=== PATIENT | female | born 1940 | race Caucasian/White ===

== ENCOUNTER 2024-07-04 18:42 | Emergency (ER) | payer MEDICARE, BC, SELFPAY ==
[2024-07-04 18:43] VITALS: BMI 15.7
[2024-07-04 19:07] VITALS: BP 134/57; PULSE 60; RESP 19; TEMP 36.8; O2SAT 98
--- NOTE | 2024-07-04 19:31 | XR_ITS ---
Examination: CT brain head without contrast. 2-D sagittal coronal reconstructions Date and time of exam:July 04, 2024 2058 hrs. Indications: Patient fell today with injury to the head, head pain CTDI: vol (mGy):40.9 DLP: (mGycm):765 Technique: Multiple CT axial sections of the brain have been obtained, 5 mm slice thickness. Contrast has not been administered. 2-D sagittal, coronal reconstructions have been obtained Low dose protocols were performed. One or more of the following dose reduction techniques were used; automated exposure control, adjustment of the mA and/or KV according to patient size, use of iterative reconstruction technique. Findings: No significant ventricular enlargement. 1 mm opacities at the anterior margins both optic globes, axial image 30 Intra-axial or extra-axial hemorrhage density is not seen. No mass effect or midline shift Basal cisterns are not remarkable. Fourth ventricle is midline. Cranial vault intact. Impression: Negative for acute hemorrhage, mass effect or midline shift Tiny opaque bodies at the anterior margins both optic globes, axial image 30, clinical correlation advised millimeters
--- NOTE | 2024-07-04 19:31 | XR_ITS ---
Examination: CT cervical spine without contrast 2-D sagittal reconstructions 2-D coronal reconstructions 3-D reconstructions. Exam date and time:July 04, 2024 2058 hrs. Indications: Patient fell today with injury to the neck, neck pain CTDI:vol (mGy) 11.1 DLP: (mGycm) 202 Technique: Multiple 2 mm axial sections of the cervical spine have been obtained. The coronal and sagittal reconstructions have been obtained. 3-D reconstructions have been obtained. Low dose protocols were performed. One or more of the following dose reduction techniques were used; automated exposure control, adjustment of the mA and/or KV according to patient size, use of iterative reconstruction technique. Findings: Axial sections demonstrate intact base of the skull. C1 exhibit satisfactory relationship to the odontoid. No acute cervical vertebral body fracture seen. Alignment posterior spinous processes satisfactory. Impression: No acute cervical fracture.
--- NOTE | 2024-07-04 19:31 | XR_ITS ---
Examination: CT maxillofacial, without intravenous contrast. 2-D sagittal reconstructions. 3-D reconstructions. Date and time of exam:July 04, 2024 2058 hrs. Indications: Patient fell today with laceration to the face, facial pain CTDI: vol (mGy):18.1 DLP: (mGycm):274 Technique: Multiple axial images of maxillofacial region, 3.0 mm slice thickness. 2-D sagittal and coronal reconstructions. 3-D reconstructions. Low dose protocols were performed. One or more of the following dose reduction techniques were used; automated exposure control, adjustment of the mA and/or KV according to patient size, use of iterative reconstruction technique. Findings: Frontal bone frontal sinuses intact Orbital rims intact No depression zygomatic arches No nasal bone fracture Maxilla mandible intact Impression: No acute facial fracture. Tiny opacities at the bilateral optic globe margins, axial image 67, clinical correlation advised
--- NOTE | 2024-07-04 19:32 | PD.EDRME ---
Rapid Medical Screening Exam RME Arrival date/time: 07/04/24 18:42 84-year-old female with at bedside presents emergency department complaining of laceration to right side of face status post fall at home that occurred while coming downstairs patient reports missed step and fell forward unknown if she had any loss of consciousness. Chief Complaint: Head Injury Time Seen by Provider: 07/04/24 19:30 Vital signs: Vital Signs Temperature 98.3 F 07/04/24 19:07 Pulse Rate 60 07/04/24 19:07 Respiratory Rate 19 07/04/24 19:07 Blood Pressure 134/57 H 07/04/24 19:07 Pulse Oximetry (%) 98 07/04/24 19:07 Oxygen Delivery Method Room Air 07/04/24 19:07 Vital signs reviewed by provider: Yes
--- NOTE | 2024-07-04 20:32 | PD.EDFALL ---
ED Fall Injury RME/HPI General Chief Complaint: Head Injury Stated Complaint: TRIP/FALL, LAC TO RIGHT SIDE FACE, UNK LOC Time Seen by Provider: 07/04/24 19:30 Arrival date/time: 07/04/24 18:42 RME / HPI RME / HPI Narrative: 07/04/24 18:42 84-year-old female with at bedside presents emergency department complaining of laceration to right side of face status post fall at home that occurred while coming downstairs patient reports missed step and fell forward unknown if she had any loss of consciousness. DR. FAJARDO MAIN ED EVALUATION: 84 year old female presents to the Emergency Department accompanied by spouse with complaint of right face laceration secondary to fall prior to arrival. Patient tripped and fell downstairs, she missed a step and fell forward. LOC unknown. PMHx: Valley fever (1994), colitis (12/15/14). PSHx: Abdominal hysterectomy (02/01/1977), colon cancer surgery (09/03/1986), left ovarian surgery (09/03/1986), back surgery (10/28/2008), right eye cataract surgery (12/19/2011), back surgery again (09/2013), left eye cataract surgery (01/18/2015), total hip surgery (02/03/2016). Social Hx: No tobacco, alcohol, or substance use. Related Data Home Medications ?Medication ?Instructions ?Recorded ?Confirmed brimonidine 0.2 %-timolol 0.5 % 1 drp ophthalmic (eye) BID 08/26/18 04/12/21 eye drops (Combigan) hydrocodone 10 mg-acetaminophen 1 tab PO BID 08/26/18 04/12/21 325 mg tablet midodrine 10 mg tablet 10 mg PO BID 08/26/18 04/12/21 travoprost 0.004 % eye drops 1 drp ophthalmic (eye) HS 08/26/18 04/12/21 (Travatan Z) donepezil 10 mg tablet (Aricept) 10 mg PO QDAY 04/12/21 04/12/21 pravastatin 40 mg tablet 40 mg PO BID 04/12/21 04/12/21 Allergies Allergy/AdvReac Type Severity Reaction Status Date / Time No Known Allergies Allergy Verified 07/04/24 18:45 Review of Systems Review of Systems Systems Reviewed: All systems reviewed, normal except as documented Narrative Review of Systems: GEN: No fever, no chills, no weight loss EYES: No discharge, no visual changes, no pain HEENT: No ear pain, no congestion, no sore throat PULM: No shortness of breath, no cough, no congestion CV: No chest pain, no dyspnea on exertion, no palpitations GI: No nausea, no vomiting, no diarrhea, no pain, no constipation : No frequency, no urgency and no dysuria MUSC/SKEL: No joint pain, no back pain SKIN: No rash. + right face laceration secondary to fall (see HPI) PSYCH: No hallucinations, no depression HEME/LYMPH: No easy bleeding or bruising tendencies NEURO: No weakness, no headache Past Medical History Past Medical History CARDIAC: Positive Cardiac Disorders and Hypercholesterolemia GASTROINTESTINAL: Positive Gastrointestinal Disorders, Colitis, Colorectal Cancer (09/03/88) and Gastroesophageal Reflux Disease REPRODUCTIVE: Positive Previous Pregnancies () MUSCULOSKELETAL: Positive Musculoskeletal Disorders, Arthritis and Carpal Tunnel Syndrome (bilat) ENT: Positive Cataracts (bilateral) PSYCHO/SOCIAL: Positive Depression and Anxiety OTHER HISTORY: Positive Falls, Chicken Pox, Measles, Mumps, Cancer and Colorectal Cancer (09/03/88) Surgical History SURGICAL: Positive Eye Surgery, Tonsillectomy, Abdominal Surgery, Bowel Surgery and Hysterectomy Social History SMOKING STATUS: Former smoker SUBSTANCE USE: does not use ALCOHOL: Never ED Exam Narrative Physical exam: GENERAL APPEARANCE: alert and oriented x 4, well-developed, well-nourished, no acute distress VITALS: All vitals were reviewed and the pulse ox is 98% on room air, which is normal according to my interpretation. HEENT: Right face laceration. Pupils equal, round, reactive to light; EOMI; mucous membranes pink, moist; oropharynx clear NECK: Supple LUNGS: CTABL; no wheezes, no rales, no rhonchi HEART: Regular rate, regular rhythm; normal S1, S2; no murmurs ABDOMEN: non distended; normal BS; soft, no tenderness, no guarding, no rebound; no masses, no organomegaly, no hernia BACK: no CVA tenderness EXTREMITIES: atraumatic; no edema NEUROLOGIC: awake; alert and oriented x4; cranial nerves II-XII grossly intact; no focal sensory or motor deficits PSYCHIATRIC: appropriate mood and affect SKIN: warm, dry, normal color; no rashes Course Quality Measures none Orders Category Date Time Status Set Up Suture Tray STAT Care 07/04/24 19:31 Completed Wound Care [Wound Care] NOW Care 07/04/24 19:31 Completed Consult to General Surgery Stat Cons 07/04/24 21:[address] cervical spine wo con Stat Exams 07/04/24 19:[address] facial bones wo con Stat Exams 07/04/24 19:[address] head/brain wo con Stat Exams 07/04/24 19:31 Completed Lidocaine 1% 20 ml [Xylocaine 1% 20 ML] Med 07/04/24 19:31 Discontinued 20 ml INFL X1 ONE Tet,Diphth,Pertuss(Acell)-Tdap [Boostrix Vacc] Med 07/04/24 19:31 Discontinued 0.5 ml IMI .ONCE ONE Reevaluation(s) Reevaluation #1: Patient remains clinically stable throughout the emergency department visit. Re-assessment at the time of disposition demonstrates that the patient is in no acute distress. We reviewed all the results, analysis, and treatment plans. Patient is amenable to discharge. Strict return precautions were outlined. Patient was discharged in stable condition. Time: 23:50 Vital Signs Vital signs: Vital Signs Temperature 98.3 F 07/04/24 19:07 Pulse Rate 60 07/04/24 19:07 Respiratory Rate 19 07/04/24 19:07 Blood Pressure 134/57 H 07/04/24 19:07 Pulse Oximetry (%) 98 07/04/24 19:07 Oxygen Delivery Method Room Air 07/04/24 19:07 Procedures -ED Procedure Comment #1 Deep, complex, L-shaped laceration with irregular borders 7 cm right cheek. Deep subcutaneous interrupted sutures 3-0 Vicryl x 3. 4-0 Ethilon running suture for skin closure. #2 Linear laceration 2 cm right brow deep with irregular borders. 4-0 Ethilon running suture for skin closure. Steri-Strips placed Fall MDM Narrative MDM Narrative:: Batool Low am scribing for and in the presence of Dr. Fajardo. Patient data External records reviewed:: [facility] previous records Clinical information provided by:: patient and spouse Social determinants that could affect healthcare access:: none Patient has the following chronic illnesses:: PMHx: Valley fever (1994), colitis (12/15/14). PSHx: Abdominal hysterectomy (02/01/1977), colon cancer surgery (09/03/1986), left ovarian surgery (09/03/1986), back surgery (10/28/2008), right eye cataract surgery (12/19/2011), back surgery again (09/2013), left eye cataract surgery (01/18/2015), total hip surgery (02/03/2016). How is presenting disease/condition affected by chronic disease/condition?: uneffected by Evaluation data The following diagnostics were reviewed and interpreted by me:: radiology exam(s) Lab and/or radiology exams considered but not ordered:: none Interpretation Summary: Procedure(s): CT head/brain wo con Accession Number(s): [id number] cc: Aries Lentz MD; Marleny Mistry MD; Afia Sandhu ([employer]),Benedicto WEN~ Examination: CT brain head without contrast. 2-D sagittal coronal reconstructions Date and time of exam:July 04, 20242057 hrs. Indications: Patient fell today with injury to the head, head pain CTDI: vol (mGy):40.9 DLP: (mGycm):765 Technique: Multiple CT axial sections of the brain have been obtained, 5 mm slice thickness. Contrast has not been administered. 2-D sagittal, coronal reconstructions have been obtained Low dose protocols were performed. One or more of the following dose reduction techniques were used; automated exposure control, adjustment of the mA and/or KV according to patient size, use of iterative reconstruction technique. Findings: No significant ventricular enlargement. 1 mm opacities at the anterior margins both optic globes, axial image 30 Intra-axial or extra-axial hemorrhage density is not seen. No mass effect or midline shift Basal cisterns are not remarkable. Fourth ventricle is midline. Cranial vault intact. Impression: Negative for acute hemorrhage, mass effect or midline shift Tiny opaque bodies at the anterior margins both optic globes, axial image 30, clinical correlation advised millimeters Dictated By: Aries Lentz MD Procedure(s): CT facial bones wo con Accession Number(s): [id number] cc: Aries Lentz MD; Marleny Mistry MD; Afia Sandhu ([employer]),Benedicto WEN~ Examination: CT maxillofacial, without intravenous contrast. 2-D sagittal reconstructions. 3-D reconstructions. Date and time of exam:July 04, 20242057 hrs. Indications: Patient fell today with laceration to the face, facial pain CTDI: vol (mGy):18.1 DLP: (mGycm):274 Technique: Multiple axial images of maxillofacial region, 3.0 mm slice thickness. 2-D sagittal and coronal reconstructions. 3-D reconstructions. Low dose protocols were performed. One or more of the following dose reduction techniques were used; automated exposure control, adjustment of the mA and/or KV according to patient size, use of iterative reconstruction technique. Findings: Frontal bone frontal sinuses intact Orbital rims intact No depression zygomatic arches No nasal bone fracture Maxilla mandible intact Impression: No acute facial fracture. Tiny opacities at the bilateral optic globe margins, axial image 67, clinical correlation advised Dictated By: Aries Lentz MD Procedure(s): CT cervical spine wo con Accession Number(s): [id number] cc: Aries Lentz MD; Marleny Mistry MD; Afia Sandhu ([employer]ING [employer]OR)Benedicto~ Examination: CT cervical spine without contrast 2-D sagittal reconstructions 2-D coronal reconstructions 3-D reconstructions. Exam date and time:July 04, 2024 2058 hrs. Indications: Patient fell today with injury to the neck, neck pain CTDI:vol (mGy) 11.1 DLP: (mGycm) 202 Technique: Multiple 2 mm axial sections of the cervical spine have been obtained. The coronal and sagittal reconstructions have been obtained. 3-D reconstructions have been obtained. Low dose protocols were performed. One or more of the following dose reduction techniques were used; automated exposure control, adjustment of the mA and/or KV according to patient size, use of iterative reconstruction technique. Findings: Axial sections demonstrate intact base of the skull. C1 exhibit satisfactory relationship to the odontoid. No acute cervical vertebral body fracture seen. Alignment posterior spinous processes satisfactory. Impression: No acute cervical fracture. Dictated By: Aries Lentz MD Medications / Prescriptions Medications or Prescriptions considered but not ordered:: none Medication administrations:: Medication Administration History Discontinued Medications Diphtheria/Tetanus/Acell Pertussis (Diphth,Pertuss(Acell),Tet Vac 0.5 Ml Vial) 0.5 ml IMi .ONCE ONE Stop: 07/04/24 19:32 Last Admin: 07/04/24 20:51 Dose: 0.5 ml Documented By: Lidocaine HCl (Lidocaine Hcl 1% 20 Ml Vial) 20 ml INFL X1 ONE Stop: 07/04/24 19:32 Last Admin: 07/04/24 20:54 Dose: 20 ml Documented By: see above Consultations Consultation(s) initiated? (list below): No Diagnosis Fall Differential Diagnosis: concussion with loss of consciousness, concussion without loss of consciousness and other (head laceration, ) Most likely diagnosis given after review of the tests above:: Fall Complex laceration laceration of face Laceration of brow without complication Head injury Admission Indicated Admission indicated?: not indicated Admission Request Was there a request for admission?: No Disposition Plan Disposition Plan: Discharge Discharge Attestation Discharge Attestation: The patient and all family members were given an opportunity to ask questions and understood the discharge instructions. Discharge instructions specifically effects, indications for sooner follow up or return to the emergency department, and the expected course of current diagnosis. Patient condition: Stable Discharge Plan Plan Patient Disposition: HOME (Self Care) Prescriptions/Referrals Prescriptions/Med Rec: No Action travoprost [Travatan Z] 0.004 % Drops 1 drp ophthalmic (eye) HS hydrocodone-acetaminophen 10-325 mg Tablet 1 tab PO BID midodrine 10 mg Tablet 10 mg PO BID Combigan 0.2-0.5 % Drops 1 drp OPHTHALMIC (EYE) BID pravastatin 40 mg Tablet 40 mg PO BID donepezil [Aricept] 10 mg Tablet 10 mg PO QDAY Referrals: Marleny Mistry MD [Primary Care Provider] - In 1 week Problem List Clinical Impression: Fall, Complex laceration of face, Laceration of brow without complication, Head injury Patient/Caregiver Discharge Instructions Education Materials: Black Eye, ED Head Injury (Adult), ED Laceration, Face: Stitches or Tape Print Language: Pashto Stand Alone Forms: Shara Award Info., Patient Portal Info Letter
[2024-07-04] MEDS: DIPHTH,PERTUSS(ACELL),TET VAC 0.5 ML VIAL IMi (20:51)
[2024-07-04] MEDS: LIDOCAINE HCL 1% 20 ML VIAL INFL (20:54)
[2024-07-04 22:17] VITALS: BP 155/67; PULSE 69; RESP 18; TEMP 36.5; O2SAT 99
[2024-07-05 00:12] VITALS: BP 155/74; PULSE 64; RESP 16; O2SAT 100
== END 2024-07-05 00:13 | disposition home or self-care (01) ==
PROVIDERS: Emergency Provider Emergency Medicine; PCP Family Medicine
DX: S01.81XA Laceration without foreign body of other part of head, initial encounter (principal); S19.9XXA Unspecified injury of neck, initial encounter; H43.393 Other vitreous opacities, bilateral; W10.9XXA Fall (on) (from) unspecified stairs and steps, initial encounter; Z23 Encounter for immunization
CPT/HCPCS: 12054; 70450; 70486; 72125; 90471; 90715; 99284; J3490

== ENCOUNTER → 2025-01-29 | Outpatient (CLI) | payer MEDICARE, BC, SELFPAY ==
[2025-01-29 15:43] LABS: Amphetamine/Methamp Scrn,U Negative (Negative); Barbiturate Screen,Urine Negative (Negative); Benzodiazepines Screen,Urine Negative (Negative); Benzoylecgonine Screen, Ur Negative (Negative); Fentanyl Screen,Urine Negative (Negative); Opiate Screen,Urine Negative (Negative); THC Screen,Urine Negative (Negative)
== END | disposition home or self-care (01) ==
LOC: SLDO 14:38
PROVIDERS: PCP Physician Assistant; Referring Provider Physician Assistant; Visit Provider Physician Assistant
DX: Z79.891 Long term (current) use of opiate analgesic (principal)
CPT/HCPCS: 80307

== ENCOUNTER 2025-02-27 10:43 | Inpatient (IN) | payer MEDICARE, BC, SELFPAY ==
[2025-02-27 10:57] VITALS: BP 147/47; PULSE 104; RESP 19; TEMP 36.9; O2SAT 96
[2025-02-27 11:14] VITALS: PULSE 74; O2SAT 97
--- NOTE | 2025-02-27 11:42 | PD.EDADULT ---
ED General RME/HPI General Chief complaint: Weakness Stated complaint: WEAKNESS Time Seen by Provider: 02/27/25 11:42 Arrival date/time: 02/27/25 10:43 RME / HPI RME / HPI narrative: DR. TAN MAIN ED EVALUATION: 85-year-old female with past medical history of Valley fever (1994) and colitis (2014) presents to the Emergency Department BIBA accompanied by her with complaint of increased confusion, progressive weakness over the past year. Patient is agitated, per she gets like that. No recent trauma reported. All history obtained from . No other complaints at this time. Past surgical history includes abdominal hysterectomy (1976), colon cancer surgery (1986), left ovarian surgery (1986), back surgeries (2008, 2013), right eye cataract surgery (2011), left eye cataract surgery (2014), and total hip surgery (2015). Social history negative for tobacco, alcohol, or substance use. Related Data Home Medications ?Medication ?Instructions ?Recorded ?Confirmed brimonidine 0.2 %-timolol 0.5 % 1 drp ophthalmic (eye) BID 08/26/18 04/12/21 eye drops (Combigan) hydrocodone 10 mg-acetaminophen 1 tab PO BID 08/26/18 04/12/21 325 mg tablet midodrine 10 mg tablet 10 mg PO BID 08/26/18 04/12/21 travoprost 0.004 % eye drops 1 drp ophthalmic (eye) HS 08/26/18 04/12/21 (Travatan Z) donepezil 10 mg tablet (Aricept) 10 mg PO QDAY 04/12/21 04/12/21 pravastatin 40 mg tablet 40 mg PO BID 04/12/21 04/12/21 Allergies Allergy/AdvReac Type Severity Reaction Status Date / Time No Known Allergies Allergy Verified 07/04/24 18:45 Review of Systems Review of Systems Systems Reviewed: All systems reviewed, normal except as documented Past Medical History Past Medical History CARDIAC: Positive Cardiac Disorders and Hypercholesterolemia GASTROINTESTINAL: Positive Gastrointestinal Disorders, Colitis, Colorectal Cancer (09/03/88) and Gastroesophageal Reflux Disease REPRODUCTIVE: Positive Previous Pregnancies () MUSCULOSKELETAL: Positive Musculoskeletal Disorders, Arthritis and Carpal Tunnel Syndrome (bilat) ENT: Positive Cataracts (bilateral) PSYCHO/SOCIAL: Positive Depression and Anxiety OTHER HISTORY: Positive Falls, Chicken Pox, Measles, Mumps, Cancer and Colorectal Cancer (09/03/88) Surgical History SURGICAL: Positive Eye Surgery, Tonsillectomy, Abdominal Surgery, Bowel Surgery and Hysterectomy Social History SMOKING STATUS: Former smoker SUBSTANCE USE: does not use ALCOHOL: Never ED Exam Narrative Physical exam: Physical Exam:? General:?? ? Patient is brought in for agitation and history of dementia The vital signs were reviewed. Patient is pushing me away will not allow me to examine. As a scratch my arm The patient is arousable with agitation l stimuli but immediately falls back to sleep and becomes inattentive. Patient had a spontaneous respirations that required no assistance at this time . O2 sats are adequate at the present time. Head & Scalp:?? ? Normocephalic, atraumatic. Face:?? ? Appears normal and is without lesions, deformity. No apparent trauma Ears:??? Left external pinna appears normal. Right external pinna appears normal. Eyes:?? ? The sclera is anicteric. The Left and Right Orbit/Lid/Conjunctiva appears normal without swelling, discoloration or injection. Nose: ? ? The nose is without deformity, discharge or tenderness; Throat: ? ? Appears normal.? The mucous membranes are pink and moist without exudates, redness or mass seen.? The tongue appears normal. Neck: The neck is supple and no apparent mass or adenopathy. Chest: The chest wall is normal in size and symmetry and has no chest wall tenderness or crepitus. The patient displays adequate ventilator effort without retractions, accessory muscle use. Patient has adequate air movement bilaterally with no wheezes and no rales. ? Cardiovascular: Regular rate and rhythm; No murmurs, rubs, or gallops; Gastrointestinal: The abdomen appears normal.? No obvious hernias or mass. The abdomen is soft and benign, non-distended, with no pain, no guarding and no rebound tenderness.? Bowel sounds are present and normal sounding.? No CVA tenderness. Genitourinary: No apparent injury or trauma. Back/Spine: No apparent injury or trauma Extremities/Musculoskeletal/lymphatic:? ? ? The bilateral upper and lower extremities are warm. There is no evidence of arterial? insufficiency. There is no evidence of venous insufficiency/edema. The patient is obtunded but displays no obvious focal deficits and spontaneously moves bilateral upper and lower extremities with painful or verbal stimuli There is no apparent, injury or trauma. Skin:? The skin is warm, dry and intact.? No rashes. No petechia. No purpura. No abnormal bruising.? The color is appropriate with no cyanosis. Mental status/Psychiatric: Mental status is eyes closed agitated making noises unable to interact or provide a history Neurological:? The patient is agitated moving about with all extremities. The pupils are equal and reactive to light No obvious focal deficits. Patient responds to painful and verbal stimuli. Moans and makes noises Course Quality Measures none Orders Category Date Time Status Bedside Blood Glucose NOW Care 02/27/25 11:59 Active EKG (ED ONLY) *Do not use* NOW Care 02/27/25 11:29 Completed In and Out Catheter X1 Care 02/27/25 11:25 Completed Insert IV NOW Care 02/27/25 12:[address] head/brain wo con Stat Exams 02/27/25 11:59 Completed EKG (ED Only) Stat Exams 02/27/25 11:28 Ordered XR chest 1V portable Stat Exams 02/27/25 11:59 Completed Alcohol, Blood Medical Stat Lab 02/27/25 12:29 Completed Ammonia Stat Lab 02/27/25 12:29 Completed B-Type Natriuretic Peptide Stat Lab 02/27/25 12:29 Completed Blood Culture (Lab) Stat Lab 02/27/25 12:24 Received CBC Stat Lab 02/27/25 12:29 Completed Comprehensive Metabolic Panel Stat Lab 02/27/25 12:29 Completed Drug Screen,Urine Stat Lab 02/27/25 11:28 Completed Lactate (Lactic Acid) Stat Lab 02/27/25 12:29 Completed Procalcitonin Stat Lab 02/27/25 12:29 Completed Prothrombin Time with INR Stat Lab 02/27/25 12:29 Completed Troponin I Stat Lab 02/27/25 12:29 Completed Type and Screen Stat Lab 02/27/25 12:29 Completed Urinalysis Stat Lab 02/27/25 11:28 Completed Urinalysis, C/S if Indicated Stat Lab 02/27/25 11:28 Completed Urine Culture Stat Lab 02/27/25 11:28 Received Venous Blood Gas Stat Lab 02/27/25 12:29 Completed DiphenhydrAMINE INJ [Benadryl Inj] Med 02/27/25 11:59 Discontinued 25 mg IVP X1 ONE Haloperidol Lactate [Haldol Inj] Med 02/27/25 11:59 Discontinued 2 mg IV X1 ONE Sodium Chloride 0.9% 1000 ml [Ns] 1,000 ml Med 02/27/25 15:13 Discontinued IV 999 mls/hr Sodium Chloride 0.9% 1000 ml [Ns] 2,000 ml Med 02/27/25 11:59 Active IV 150 mls/hr Vital Signs Vital signs: Vital Signs Temperature 98.4 F 02/27/25 10:57 Pulse Rate 104 H 02/27/25 10:57 Respiratory Rate 19 02/27/25 10:57 Blood Pressure 147/47 H 02/27/25 10:57 Pulse Oximetry (%) 96 02/27/25 10:57 Oxygen Delivery Method Room Air 02/27/25 10:57 Critical Care Time Critical Care Time Critical Care Time: Yes Total Critical Care Time (min.): 45 Attestation: Patient acute kidney injury severe dehydration agitated dementia hypernatremia altered mental status The high probability of sudden, clinically significant deterioration in the patient's condition required the highest level of my preparedness to intervene urgently. The services I provided to this patient were to treat and/or prevent clinically significant deterioration. Services included the following: chart data review, reviewing nursing notes and/or old charts, documentation time, oracle drm consultant collaboration regarding findings and treatment options, medication orders and management, direct patient care, vital sign assessments and ordering, interpreting and reviewing diagnostic studies and lab tests. Aggregate critical care time includes only time during which I was engaged in work directly related to the patient's care, as described above, whether at bedside or elsewhere in the Emergency Department. It did not include time spent performing other reported procedures or the services of residents, students, nurses or physician assistants. Discharge Plan Plan Patient Disposition: Admit Acute Care w/in Hospital Discharge Disposition comment: Hospitalist to admit Problem List Clinical Impression: Dementia with agitation, Acute kidney injury, Urinary tract infection, Hyperosmolality and hypernatremia, Severe dehydration MDM Narrative [facility] hospital course: I, Batool Solano, am scribing for and in the presence of Dr. Tan. Patient is a got at least a history of dementia with agitated features and is unable to care for by the at this time who is patient's quite debilitated with her agitation and uncertain if this is related to her dementia or medications but nonetheless we will need to sedate her to get a medical workup. Besides the dementia with agitated features patient appears dry ill and medical workup was launched which revealed multiple abnormalities including the following Elevated white count of 22.3 thousand PT/INR within normal limits VBG was pH is 7.40 pCO2 of 43 sodium is highly elevated at 158 potassium 4.0 chloride 115 anion gap is 18 BUN is elevated 77 and creatinine is 2.5 note her last creatinine was 1.1 it was normal. She is dry with a elevated BUN/creatinine ratio. Glucose 118 calculated osmolality is highly elevated at 336 lactic acid is elevated 2.7 troponin is slightly bumped at 0.081. BNP was 360 procalcitonin was 0.77. Consistent with a urinary tract infection. Urine drug screen had some opiates in it. Head CT was negative chest x-ray was negative for any infection. In summary patient is dehydrated acute kidney injury with urinary tract infection elevated lactic acid hyperosmolar hypernatremic dehydration. Hospitalist Dr. Yandy Bell was called and they will be admitting. Clinical Information Provided by EMS and spouse Medical Records [facility] Meds/Rx Considered, not Ordered None Labs/Rad/Tests considered, not Ordered None Chronic Illness/Social Conditions Add or document further as needed: Valley fever (1994) and colitis (2014). Past surgical history includes abdominal hysterectomy (1976), colon cancer surgery (1986), left ovarian surgery (1986), back surgeries (2008, 2013), right eye cataract surgery (2011), left eye cataract surgery (2014), and total hip surgery (2015). Social history negative for tobacco, alcohol, or substance use. EKG EKG Interpretation narrative: My interpretation: EKG performed at 1135 hours, sinus tachycardia, rate 108, no STEMI Lab Interpretation Labs: see narrative above Imaging Imaging interpretation: see narrative above Radiology reports / interpretation(s): Procedure(s): CT head/brain wo con Accession Number(s): [id number] cc: Martín Tan MD; Aries Lentz MD; Susana Cordon PA-C~ Examination: CT brain head without contrast. 2-D sagittal coronal reconstructions Date and time of exam:February 27, 2025 1308 hours Comparison 2023 INDICATIONS: Loss of consciousness episode today CTDI: vol (mGy):44.1 DLP: (mGycm):8 96 Technique: Multiple CT axial sections of the brain have been obtained, 5 mm slice thickness. Contrast has not been administered. 2-D sagittal, coronal reconstructions have been obtained Low dose protocols were performed. One or more of the following dose reduction techniques were used; automated exposure control, adjustment of the mA and/or KV according to patient size, use of iterative reconstruction technique. Findings: No significant ventricular enlargement. Intra-axial or extra-axial hemorrhage density is not seen. No mass effect or midline shift Basal cisterns are not remarkable. Fourth ventricle is midline. Cranial vault intact. Impression: Negative for acute hemorrhage, mass effect or midline shift Dictated By: Aries Lentz MD Procedure(s): XR chest 1V portable Accession Number(s): [id number] cc: Martín Tan MD; Aries Lentz MD; Susana Cordon PA-C~ Examination: AP chest single view Technique one AP portable semiupright chest single view Date and time: February 27, 2025, 12:33 PM INDICATIONS: Chest pain today FINDINGS: Normal heart size Ectatic thoracic aorta No pneumonia or pulmonary edema Old appearing deformity right clavicle IMPRESSION: No interval pneumonia or pulmonary edema Dictated By: Aries Lentz MD Medication Administration(s) Medication Administration History Acetaminophen (Acetaminophen 325 Mg Tablet) 650 mg PO Q6H PRN PRN Reason: Fever >101.5 Stop: 03/29/25 15:27 Sodium Chloride (Ns) 2,000 mls @ 150 mls/hr IV .[id number] ONE Stop: 02/28/25 01:18 Last Infusion: 02/27/25 16:00 Dose: 0 mls/hr Documented By: Admin: 02/27/25 12:46 Dose: 150 mls/hr Documented By: YVONNE Ceftriaxone Sodium/Dextrose (Rocephin/D5w 1gm Iv Premix) 1 gm in 50 mls @ 100 mls/hr IV QDAY LORNE Stop: 03/06/25 15:48 Last Admin: 02/27/25 15:56 Dose: 100 mls/hr Documented By: YVONNE Ondansetron HCl (Ondansetron Inj 2 Mg/Ml Inj 2 Ml) 4 mg IVP Q6H PRN; Protocol PRN Reason: NAUSEA OR VOMITING Stop: 03/29/25 15:27 Sennosides (Senna Tablet) 1 tab PO QDAY PRN; Protocol PRN Reason: constipation Stop: 03/29/25 15:27 Discontinued Medications Diphenhydramine HCl (Diphenhydramine Inj 50 Mg/Ml Vial) 25 mg IVP X1 ONE Stop: 02/27/25 12:00 Last Admin: 02/27/25 12:45 Dose: 25 mg Documented By: YVONNE Haloperidol Lactate (Haloperidol Lact Inj 5 Mg/Ml Vial) 2 mg IV X1 ONE Stop: 02/27/25 12:00 Last Admin: 02/27/25 12:44 Dose: 2 mg Documented By: YVONNE Sodium Chloride (Ns) 1,000 mls @ 999 mls/hr IV .[id number] ONE Stop: 02/27/25 16:13 Last Admin: 02/27/25 15:57 Dose: 999 mls/hr Documented By: YVONNE Consultations/Discussions re: Management Consult #1: Date/time: 02/27/25 3:25 pm Physician, specialty, service, details: Discussed test HPI, PMHx, lab, radiology results and/or management with resident working with the hospitalist. Will admit for further evaluation and management. Accepts patient for admission. Diagnosis Differential dx and/or dx ruled out: dementia progression, UTI, metabolic encephalopathy Most likely dx, and/or detailed dx discussion: Dementia with agitation LU UTI Hyperosmolality and hypernatremia Severe dehydration Dispositon Disposition: Admit
--- NOTE | 2025-02-27 11:59 | XR_ITS ---
Examination: AP chest single view Technique one AP portable semiupright chest single view Date and time: February 27, 2025, 12:33 PM INDICATIONS: Chest pain today FINDINGS: Normal heart size Ectatic thoracic aorta No pneumonia or pulmonary edema Old appearing deformity right clavicle IMPRESSION: No interval pneumonia or pulmonary edema
--- NOTE | 2025-02-27 11:59 | XR_ITS ---
Examination: CT brain head without contrast. 2-D sagittal coronal reconstructions Date and time of exam:February 27, 2025 1308 hours Comparison 2023 INDICATIONS: Loss of consciousness episode today CTDI: vol (mGy):44.1 DLP: (mGycm):8 96 Technique: Multiple CT axial sections of the brain have been obtained, 5 mm slice thickness. Contrast has not been administered. 2-D sagittal, coronal reconstructions have been obtained Low dose protocols were performed. One or more of the following dose reduction techniques were used; automated exposure control, adjustment of the mA and/or KV according to patient size, use of iterative reconstruction technique. Findings: No significant ventricular enlargement. Intra-axial or extra-axial hemorrhage density is not seen. No mass effect or midline shift Basal cisterns are not remarkable. Fourth ventricle is midline. Cranial vault intact. Impression: Negative for acute hemorrhage, mass effect or midline shift
[2025-02-27 12:24] LABS: Collection Type, Urine Catheter
[2025-02-27] MEDS: HALOPERIDOL LACT INJ 5 MG/ML VIAL 2 MG IV (12:44)
[2025-02-27 12:45] LABS: Base Excess, Venous 1 (-3-3); Basophils # (Auto) 0.0 Thou/mm3 (0.0-0.2); Basophils % (Auto) 0 % (0-2.5); Eosinophils # (Auto) 0.0 Thou/mm3 (0.0-0.5); Eosinophils % (Auto) 0 % (0-10); Hematocrit 44.7 % (36.0-46.0); Hemoglobin 14.3 g/dL (12.0-16.0); Immature Granulocytes Auto 0.17 Thou/mm3 (0.00-0.00); Lymphocytes # (Auto) 0.4 Thou/mm3 (1.0-4.8); Lymphocytes % (Auto) 2 % (10-50); Mean Corpuscular HGB Conc 32.0 g/dl (31.0-37.0); Mean Corpuscular Hemoglobin 28.4 pg (25.0-35.0); Mean Corpuscular Volume 89 fL (80-100); Monocytes # (Auto) 0.7 Thou/mm3 (0.0-0.8); Monocytes % (Auto) 3 % (0-12); Neutrophils # (Auto) 21.1 Thou/mm3 (1.8-7.7); Neutrophils % (Auto) 94 % (37-80); Nucleated Red Blood Cell # 0.00 Thou/mm3 (0.00-0.00); Nucleated Red Blood Cell % 0 /100 WBC (0); O2 Saturation, Venous 45 % (96-97); PCO2, Venous 43 mmHg (36-56); PO2, Venous 27 mmHg (15-58); Platelet Count 352 Thou/mm3 (140-440); RDW Standard Deviation 48.4 fL (36.4-46.3); Red Blood Count 5.04 Miln/mm3 (4.00-5.20); White Blood Count 22.3 Thou/mm3 (3.6-11.0); pH, Venous 7.40 (7.33-7.66)
[2025-02-27 12:46] LABS: Lactate (Lactic Acid) 2.7 mMol/L (0.4-2.0)
[2025-02-27] MEDS: SODIUM CHLORIDE 0.9% 1000 ML 2,000 ML 150 ML IV (12:46)
[2025-02-27 12:55] LABS: Bacteria,Urine 1+; Bilirubin,Urine Negative (Negative); Blood,Urine 3+ (Negative); Clarity,Urine Turbid (Clear/Hazy); Color,Urine Yellow (Lt Yel-Yel); Culture Indicated,Urine Yes; Glucose, Urine Negative (Negative); Ketones,Urine Negative (Negative); Leukocyte Esterase,Urine Positive (Negative); Nitrite,Urine Negative (Negative); PH,Urine 8.0 (5.0-7.0); Protein,Urine 1+ (Neg - Trace); RBC,Urine 24 /hpf (0-3); Specific Gravity,Urine 1.016 (1.001-1.035); Squamous Epithelial Cell,Urine 2 /hpf (0-5); Urobilinogen,Urine 6.0 mg/dL (0.0-1.0); WBC,Urine 163 /hpf (0-5)
[2025-02-27 12:58] LABS: INR 1.1 (0.9-1.3); Prothrombin Time 12.0 Seconds (9.0-12.2)
[2025-02-27 13:03] LABS: B-Type Natriuretic Peptide 360 pg/mL (0-100)
[2025-02-27 13:08] LABS: Ammonia < 10 uMol/L (11-32)
[2025-02-27 13:12] LABS: Alanine Aminotransferase 20 U/L (10-49); Albumin, Serum 4.0 gm/dL (3.4-4.8); Albumin/Globulin Ratio 1.4 (1.2-2.2); Alcohol, Blood Medical < 3.0 mg/dL (0-10.0); Alkaline Phosphatase 133 U/L (46-116); Anion Gap 18 (7-16); Aspartate Amino Transferase 23 U/L (0-34); BUN/Creatinine Ratio 31 Ratio (12-20); Bilirubin,Total 0.7 mg/dL (0.3-1.2); Blood Urea Nitrogen 77 mg/dL (9-23); Calcium 10.3 mg/dL (8.3-10.6); Calcium (Corrected) 10.3 mg/dL (8.5-10.1); Carbon Dioxide 25.1 mMol/L (20.0-31.0); Chloride 115 mMol/L (98-107); Creatinine (Component) 2.5 mg/dL (0.6-1.3); Globulin 2.8 gm/dL (2.3-3.5); Glucose 118 mg/dL (74-106); Osmolality,Calculated 336 (275-295); Potassium 4.0 mMol/L (3.4-5.1); Procalcitonin 0.77 ng/ml (0.0-0.49); Sodium 158 mMol/L (136-145); Total Protein 6.8 gm/dL (5.7-8.2); eGFR 18 See Note
[2025-02-27 13:17] LABS: Troponin I 0.081 ng/mL (0.0-0.045)
[2025-02-27 13:22] VITALS: BP 140/60; PULSE 111; RESP 18; TEMP 36.5; O2SAT 95
[2025-02-27 13:41] LABS: Amphetamine/Methamp Scrn,U Negative (Negative); Barbiturate Screen,Urine Negative (Negative); Benzodiazepines Screen,Urine Negative (Negative); Benzoylecgonine Screen, Ur Negative (Negative); Fentanyl Screen,Urine Negative (Negative); Opiate Screen,Urine Positive (Negative); THC Screen,Urine Negative (Negative)
[2025-02-27 15:39] LABS: Reflex Lactate? Y
--- NOTE | 2025-02-27 15:52 | ESHP_ITS ---
<Statement entered by Brian Mejia MD - 02/27/25 17:26> Senior Resident Attestation: I supervised/discussed management plan with supply chain intern physician Dr. Harrison, and was involved in the care of this patient. I personally saw and examined the patient and discussed the assessment and plan with the entire medicine team, including my attending. I agree with the assessment and plan as documented. Patient is a 85 years old female with PMH of dementia, dyslipidemia, primary hypertension, hx of valley fever, vitamin D deficiency, and history of colon cancer presented to the ED due to altered mental status from home. Patient is nonverbal and agitated. Workup showed UTI, patient met SIRS and sofa criteria for sepsis, lactic acid 2.7. Patient was given antibiotics and IV fluids in the emergency room and was admitted for further management, started on IV antibiotics and IVF. Patient's care was discussed with attending physician, Dr. Shaw. Brian Mejia MD PGY-3. Documentation for date of: 02/27/25 HPI History of Present Illness Chief complaint: Weakness History of present illness: Mrs. Thao is a 85F with history of colitis, glaucoma, depression, dementia, chronic pelvic pain syndrome presents for AMS. Pt was altered at time of this examination, all history gathered from chart review. Refer to ER note for initial presentation. Unable to obtain history at this time. ED Course In the ED, WBC 22.3, Hgb 14.3, MCV 89, PT 12.0, INR 1.1. VBG pH 7.4, pCO2 43, pO2 27. Sodium 158, K 4.0, Cl 115. Bicarb 25.1, Anion gap 18, BUN 77, Cr 2.5. Glucose 118. Osmolality 336. Lactic Acid 2.7. Ca 10.3. ALP 133. Trop 0.081.BNP 360. Procalcitonin 0.77. Rocephin 1g x1. NaCl 2L given at rate of 150mls/hr. Haloperidol 2mg given for agitation. Diphenhydramine 25mg x1. CT head negative for acute hemorrhage, mass effect or midline shift. CXR shows no pneumonia or pulmonary edema. ROS * Constitutional: altered, unable to answer questions. * GI: Unable to obtain at this time * CV: Unable to obtain at this time * Resp: Unable to obtain at this time * : Unable to obtain at this time * Neuro: Unable to obtain at this time Past Medical History * Colitis * Glaucoma * Depression * Dementia * Chronic pelvic pain syndrome * Left nephrolithiasis Social History (obtained from ER note) * Social history negative for tobacco, alcohol, or substance use. Surgical History (obtained from ER note) * abdominal hysterectomy (1976) * colon cancer surgery (1986) * left ovarian surgery (1986) * back surgeries (2008, 2013) * right eye cataract surgery (2011) * left eye cataract surgery (2014) * total hip surgery (2015) Allergies * NKDA Home Meds * Unable to confirm at this point. Review of Systems Review of Systems ROS Unobtainable: unobtainable due to mental status Past Medical History Past Medical History CARDIAC: Positive Cardiac Disorders and Hypercholesterolemia GASTROINTESTINAL: Positive Gastrointestinal Disorders, Colitis, Colorectal Cancer (09/03/88) and Gastroesophageal Reflux Disease REPRODUCTIVE: Positive Previous Pregnancies () MUSCULOSKELETAL: Positive Musculoskeletal Disorders, Arthritis and Carpal Tunnel Syndrome (bilat) ENT: Positive Cataracts (bilateral) PSYCHO/SOCIAL: Positive Depression and Anxiety OTHER HISTORY: Positive Falls, Chicken Pox, Measles, Mumps, Cancer and Colorectal Cancer (09/03/88) Surgical History SURGICAL: Positive Eye Surgery, Tonsillectomy, Abdominal Surgery, Bowel Surgery and Hysterectomy Social History SMOKING STATUS: Former smoker SUBSTANCE USE: does not use ALCOHOL: Never Exam Vital Signs Temp Pulse Resp BP Pulse Ox O2 Del Method 97.7 F 111 H 18 140/60 H 95 Room Air 02/27/25 13:22 02/27/25 13:22 02/27/25 13:22 02/27/25 13:22 02/27/25 13:22 02/27/25 13:22 Narrative Exam General: Altered, disheveled. Unable to answer questions. Airway patent. Mouth: Mucous membranes dry, no mucosal lesions. Heart: No cardiomegaly or thrills; tachycardic, no murmur or gallop Lungs: Clear to auscultation and percussion. No rales, wheeze, or rhonchi Abdomen: Nontender, soft, nondistended. Extremities: No amputations or deformities, cyanosis, edema or varicosities, peripheral pulses intact Results: Labs 02/27/25 12:29 02/27/25 16:16 Labs: Short CBC 02/27/25 Range/Units 12:29 WBC 22.3 H (3.6-11.0) Thou/mm3 Hgb 14.3 (12.0-16.0) g/dL Hct 44.7 (36.0-46.0) % Plt Count 352 (140-440) Thou/mm3 BMP 02/27/25 12:29 Sodium 158 H Potassium 4.0 Chloride 115 H Carbon Dioxide 25.1 BUN 77 H Creatinine 2.5 H Glucose 118 H Calcium 10.3 Cardiac Enzymes 02/27/25 Range/Units 12:29 Troponin I 0.081 H* (0.0-0.045) ng/mL Liver Function 02/27/25 Range/Units 12:29 Total Bilirubin 0.7 (0.3-1.2) mg/dL AST 23 (0-34) U/L ALT 20 (10-49) U/L Alkaline Phosphatase 133 H (46-116) U/L Albumin 4.0 (3.4-4.8) gm/dL Urine 02/27/25 Range/Units 11:28 Urine Color Yellow (Lt Yel-Yel) Urine Clarity Turbid A (Clear/Hazy) Urine pH 8.0 H (5.0-7.0) Ur Specific [place] 1.016 (1.001-1.035) Urine Protein 1+ A (Neg - Trace) Urine Glucose (UA) Negative (Negative) ABG Interpretation ABG results: 02/27/25 12:29 VBG pH 7.40 VBG pCO2 43 VBG pO2 27 VBG Base Excess 1 Quality Measures Quality Measures none Advance care planning discussed with:: other Medications Home Medications and Allergies Home Medications ?Medication ?Instructions ?Recorded ?Confirmed ?Type brimonidine 0.2 %-timolol 0.5 % 1 drp ophthalmic (eye) BID 08/26/18 04/12/21 History eye drops (Combigan) hydrocodone 10 mg-acetaminophen 1 tab PO BID 08/26/18 04/12/21 History 325 mg tablet midodrine 10 mg tablet 10 mg PO BID 08/26/18 History travoprost 0.004 % eye drops 1 drp ophthalmic (eye) HS 08/26/18 04/12/21 History (Travatan Z) donepezil 10 mg tablet (Aricept) 10 mg PO QDAY 1 04/12/21 History pravastatin 40 mg tablet 40 mg PO BID 04/12/21 History Allergies Allergy/AdvReac Type Severity Reaction Status Date / Time No Known Allergies Allergy Verified 07/04/24 18:45 Visit Medications Acetaminophen (Acetaminophen 325 Mg Tablet) 650 mg PO Q6H PRN PRN Reason: Fever >101.5 Stop: 03/29/25 15:27 Sodium Chloride (Ns) 2,000 mls @ 150 mls/hr IV .[id number] ONE Stop: 02/28/25 01:18 Last Admin: 02/27/25 12:46 Dose: 150 mls/hr Sodium Chloride (Ns) 1,000 mls @ 999 mls/hr IV .Q1H1M ONE Stop: 02/27/25 16:13 Ceftriaxone Sodium/Dextrose (Rocephin/D5w 1gm Iv Premix) 1 gm in 50 mls @ 100 mls/hr IV QDAY LORNE Stop: 03/06/25 15:48 Ondansetron HCl (Ondansetron Inj 2 Mg/Ml Inj 2 Ml) 4 mg IVP Q6H PRN; Protocol PRN Reason: NAUSEA OR VOMITING Stop: 03/29/25 15:27 Sennosides (Senna Tablet) 1 tab PO QDAY PRN; Protocol PRN Reason: constipation Stop: 03/29/25 15:27 Discontinued Medications Diphenhydramine HCl (Diphenhydramine Inj 50 Mg/Ml Vial) 25 mg IVP X1 ONE Stop: 02/27/25 12:00 Last Admin: 02/27/25 12:45 Dose: 25 mg Haloperidol Lactate (Haloperidol Lact Inj 5 Mg/Ml Vial) 2 mg IV X1 ONE Stop: 02/27/25 12:00 Last Admin: 02/27/25 12:44 Dose: 2 mg Assessment & Plan Plan 85F with history of colitis, glaucoma, depression, dementia, and, chronic pelvic pain syndrome admitted for acute encephalopathy. Pending Bcx, Ucx. Continue Abx. #Acute encephalopathy, likely metabolic vs delirium secondary to UTI Initially present with complaint of increased confusion, progressive weakness over the past year per . Initial Na 158 Initial UA WBC 163, Leukocyte positive, 1+ urine bacteria. Dx: - 02/27 CT head negative for acute hemorrhage, mass effect or midline shift - 02/27 CXR no interval pneumonia or pulmonary edema Tx: - Correct Na slowly, around 0.5 mEq/L/hr, not exceeding 8?10 mEq/L in 24 hours - Aspiration precaution - HOB elevation - NPO for now, resume diet when mentation improve. - Nurse swallow screen #Hypernatremia Goal: Lower the serum sodium by 10mEq/L in 24H. Calculate aldosterone to renin ratio (>20:1 indicate hyperaldosteronism) Dx: - Na check Q4H until correction attained - K check Q8H until Na correction attained - Plasma aldosterone - Plasma renin activity Tx: - Continue IV D5W at 1.35mL/kg/hour (50mL/hr for pt) until normonatremia. - Once normonatremia achieved, do Na check every 12H - Replete electrolyte as needed - Fingerstick glucose check Q4H. Can D/C order once pt off IV D5W. #SIRS 2/4 #Sepsis, source likely UTI #UTI qSOFA score of 1 Initial UA WBC 163, Leukocyte positive, 1+ urine bacteria. Follow sepsus resus guideline : early abx, fluid resus (30mL/kg), and vasopressors with goal MAP >65. Dx: - Bcx pending - Ucx pending Tx: - LR fluid replacement goal (30mL/kg) = ~ 1.1L (done) - antibiotics given = continue Rocephin 1g QD - vasopressor = not indicated at this point, BP stable with MAP of 86. - Velazquez cath insertion - Monitor VS closely #LU, prerenal BUN/Cr ratio of 31. Dry mucosa on physical exam. Tx: - fluid resus, not exceeding 8-10mEq/L sodium correction in 24H. - monitor urine output - daily labs, monitor chemistry - renal dose med, avoid nephrotoxin - no recent contrast or offending mediations #Lactic acidosis, likely type A - resolved Initial lactate 2.7. Rpt lactate after fluid resus 1.5 Tx: - fluid resus, not exceeding 8-10mEq/L sodium correction in 24H. - supplemental O2 as needed - consider bicarb if pH < 7 #Troponemia - downtrending Initial trop 0.081, likely from dehydration and LU. Plan: - peaked at 0.081, rpt trop 0.060. No need to trend further. #History of glaucoma Chronic medical problem Plan: - resume home eye drops once confirmed. #Dementia Chronic medical problem Plan: - resume donepezil 10mg PO QD once mentation imrpove. #Chronic pelvic pain syndrome Chronic medical problem Plan: - resume home [place] or provide multimodal pain control Dispo: Med[employer] DVT prophylaxis: SCDs GI prophylaxis: Protonix 40 Diet: NPO until mentation improve, then advance diet Lines: Peripheral IV, velazquez catheter Code status: Full code Case discussed with my senior resident Dr. Mejia Case discussed with my attending Dr. Colin Harrison, DO PGY 1 Attending Provider Attestation/Addendum I have examined the patient, reviewed labs and imaging findings, discussed the case with the resident(s), and reviewed entered orders. I agree with the plan of care as outlined in this note, with these additional summaries/recommendations: After examination of the patient and review of the clinical data, I feel that this patient needs admission to the hospital for further treatment and evaluation. Patient is a 85-year-old female with a medical history of dementia, dyslipidemia, primary hypertension, valley fever, vitamin D deficiency, and history of colon cancer who presents to [facility] emergency department on 02/27/2025 with chief complaint of altered mental status and agitation. Patient and seen at bedside. History obtained from . Patient diagnosed with acute encephalopathy most likely secondary to infectious and metabolic etiologies. CT head without contrast showed no acute hemorrhage, mass effect or midline shift. We will treat underlying causes and monitor for improvement. Patient does have dementia and we will attempt to avoid antipsychotics/sedating medications if possible. Nonpharm measures to prevent delirium with frequent reorientation. Patient diagnosed with sepsis secondary to urinary tract infection. Evidence of endorgan damage with LU and encephalopathy. Cultures taken in the emergency room, follow-up results when available. Start IV antibiotics. Lactic acidosis present which is most likely type A from sepsis. Continue IVF and follow-up reflex lactic acid. Patient diagnosed with acute kidney injury. On admission creatinine 2.5 and BUN 77. Most likely secondary to prerenal azotemia in the setting of sepsis. Continue IVF and avoid nephrotoxic agents. Repeat renal panel in AM. Patient diagnosed with hyperosmolar hyperchloremic hypernatremia which is most likely secondary to dehydration in the setting of poor oral intake/sepsis. We will trend sodium and correct slowly. Troponinemia present with troponin level 0.081. Trend troponin every 6 hours or until downtrend. Most likely secondary to demand ischemia and will consult cardiology if any cardiac symptoms develop. Consult physical therapy. Patient's updated on the plan and in agreement. All questions answered to satisfaction. Please see residents note for additional details of management. Dr. Colin MD
[2025-02-27] MEDS: cefTRIAXone/D5w 1gm IV premix 1 GM/50 ML BAG IV (15:56)
[2025-02-27] MEDS: SODIUM CHLORIDE 0.9% 1000 ML 1,000 ML 999 ML IV (15:57)
[2025-02-27 16:27] LABS: Lactic Acid, 3 HR 1.5 mMol/L (0.4-2.0)
[2025-02-27 17:04] VITALS: BP 148/108; PULSE 115; RESP 18; TEMP 36.4; O2SAT 100
[2025-02-27 17:13] VITALS: BMI 14.1
[2025-02-27 17:34] LABS: Albumin, Serum 3.1 gm/dL (3.4-4.8); Anion Gap 15 (7-16); BUN/Creatinine Ratio 33 Ratio (12-20); Blood Urea Nitrogen 75 mg/dL (9-23); Calcium 9.0 mg/dL (8.3-10.6); Calcium (Corrected) 9.7 mg/dL (8.5-10.1); Carbon Dioxide 22.0 mMol/L (20.0-31.0); Chloride 122 mMol/L (98-107); Creatinine (Component) 2.3 mg/dL (0.6-1.3); Estimated Creatinine Clearance 10.8 mL/min (>60); Glucose 124 mg/dL (74-106); Osmolality,Calculated 337 (275-295); Phosphorous 3.8 mg/dL (2.4-5.1); Potassium 3.7 mMol/L (3.4-5.1); Sodium 159 mMol/L (136-145); eGFR 20 See Note
[2025-02-27 17:36] LABS: Troponin I 0.060 ng/mL (0.0-0.045)
[2025-02-27 18:10] VITALS: BP 147/58; PULSE 90; RESP 17; TEMP 36.6; O2SAT 95
[2025-02-27] MEDS: DEXTROSE 5%-WATER 1,000 ML 50 ML IV (18:51)
--- NOTE | 2025-02-27 19:50 | PC.NURSE ---
Called Adam Thao for admission and med rec, per patient is not taking any medications, he is the care provider, but is not able to care for her anymore. 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 as he has child there already.
[2025-02-27 20:00] VITALS: BP 152/67; PULSE 114; RESP 19; TEMP 36.1; O2SAT 94
[2025-02-27] MEDS: LORazepam 2 MG/ML VIAL 0.5 MG IVP (20:47)
[2025-02-27 22:52] LABS: Potassium 3.2 mMol/L (3.4-5.1)
[2025-02-27 22:54] LABS: Sodium 162 mMol/L (136-145)
[2025-02-28] VITALS (71 sets, daily range): BP systolic 86–163; BP diastolic 49–97; PULSE 72–158; RESP 15–41; TEMP 36.1–36.7; O2SAT 84–100
[2025-02-28 02:10] LABS: Sodium 158 mMol/L (136-145)
--- NOTE | 2025-02-28 04:21 | EKG_ITS ---
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
--- NOTE | 2025-02-28 04:33 | PC.NURSE ---
Rapid response called d/t elevated HR, STAT EKG showed a-flutter with RVR, pt was lethargic since beginning of shift, pt transferred to ICU
[2025-02-28] MEDS: DILTIAZEM INJ 5 MG/ML VIAL 5 ML 15 MG IV (04:49)
--- NOTE | 2025-02-28 04:56 | PD.RESEVENT ---
Documentation for date of: 02/28/25 Event Note Event Note: Rapid response called at approximately 0445 for new onset a flutter. Patient had tachycardia 140s just prior to rapid response, stat EKG was ordered which showed new onset a flutter. During this time patient's heart rate went up to 154, patient also began desatting to 80s. Patient placed on oxy mask at 15 L/min with improvement in O2 saturations. Patient hemodynamically stable, BP WNL. 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 Cardizem drip initiated. Troponin, lactate, repeat EKG ordered, results pending. Patient upgraded to telemetry. Plan of care discussed with attending Dr. Morales. Timbo Meadows MD PGY-2
[2025-02-28 04:59] LABS: Lactate (Lactic Acid) 1.3 mMol/L (0.4-2.0)
[2025-02-28 05:03] LABS: Basophils # (Auto) 0.0 Thou/mm3 (0.0-0.2); Basophils % (Auto) 0 % (0-2.5); Eosinophils # (Auto) 0.0 Thou/mm3 (0.0-0.5); Eosinophils % (Auto) 0 % (0-10); Hematocrit 34.8 % (36.0-46.0); Hemoglobin 11.0 g/dL (12.0-16.0); Immature Granulocytes Auto 0.06 Thou/mm3 (0.00-0.00); Lymphocytes # (Auto) 0.3 Thou/mm3 (1.0-4.8); Lymphocytes % (Auto) 3 % (10-50); Mean Corpuscular HGB Conc 31.6 g/dl (31.0-37.0); Mean Corpuscular Hemoglobin 29.2 pg (25.0-35.0); Mean Corpuscular Volume 92 fL (80-100); Monocytes # (Auto) 0.4 Thou/mm3 (0.0-0.8); Monocytes % (Auto) 3 % (0-12); Neutrophils # (Auto) 11.4 Thou/mm3 (1.8-7.7); Neutrophils % (Auto) 93 % (37-80); Nucleated Red Blood Cell # 0.00 Thou/mm3 (0.00-0.00); Nucleated Red Blood Cell % 0 /100 WBC (0); Platelet Count 228 Thou/mm3 (140-440); RDW Standard Deviation 53.2 fL (36.4-46.3); Red Blood Count 3.77 Miln/mm3 (4.00-5.20); White Blood Count 12.3 Thou/mm3 (3.6-11.0)
[2025-02-28] MEDS: DILTIAZEM in D5W 125 MG 125 MG/125 ML BAG IV (05:04)
[2025-02-28 05:21] LABS: INR 1.1 (0.9-1.3); Partial Thromboplastin Time 23.1 Seconds (22.0-36.0); Prothrombin Time 12.2 Seconds (9.0-12.2)
--- NOTE | 2025-02-28 07:53 | ESPR_ITS ---
<Statement entered by Prasad Dillard MD - 03/01/25 07:42> Patient was examined and case was reviewed with team including attending physician. Note reviewed, I agree with most of its contents and agree with the patient's care as documented by Dr. Rodriguez Patient seen at the bedside. Patient with new onset atrial flutter currently on cardizem drip. Consulted Cardiology they recommended switching to amiodarone drip. Patient currently on sinus rhythm. Will continue to monitor. Prasad Dillard MD PGY-2 Documentation for date of: 02/28/25 Subjective Subjective Interval history: Patient was evaluated at the bedside this morning and remained nonverbal. Patient was given lorazepam at 20:47 for anxiety. A rapid response was called at 5:16 for acute change in heart rate (tachycardia). A stat EKG confirmed new- onset atrial flutter. The patient also experienced oxygen desaturation to the 80s and was placed on an oxygen mask at 15 L/min, resulting in improved saturations. A 15 mg IV push of diltiazem was administered, leading to a heart rate reduction to 88 bpm with conversion to sinus rhythm, as confirmed on telemetry. Cardiology discontinued diltiazem and started Amiodarone drip to see if patient can maintain in sinus rhythm NG tube was also placed. Exam Vital Signs Temp Pulse Resp BP Pulse Ox O2 Del Method O2 Flow Rate 97.6 F 109 H 24 H 111/78 96 Oxy Mask 6 02/28/25 05:16 02/28/25 06:45 02/28/25 06:45 02/28/25 06:45 02/28/25 06:45 02/28/25 06:45 02/28/25 06:45 Narrative Exam Physical Exam General: Frail and thin. Unable to communicate, nonverbal. OxyMask in place. HEENT: Normocephalic, atraumatic. Mucous membranes dry. Heart: Regular rate and rhythm, no murmurs. Lungs: Decreased breath sounds. Abdomen: Thin, soft, nondistended, nontender. No guarding or rebound tenderness. Neurologic: Patient unable to complete neuro exam. Extremities: Mild edema. Skin: No rash or ecchymoses. Objective Labs 03/01/25 05:40 03/01/25 13:53 Labs: Laboratory Results - last 24 hr 0802/27/25 02/27/25 11:28 12:29 16:16 WBC 22.3 H RBC 5.04 Hgb 14.3 Hct 44.7 MCV 89 MCH 28.4 MCHC 32.0 RDW Std Deviation 48.4 H Plt Count 352 Neut % (Auto) 94 H Lymph % (Auto) 2 L [place] % (Auto) 3 Eos % (Auto) 0 Baso % (Auto) 0 Neut # (Auto) 21.1 H Lymph # (Auto) 0.4 L [place] # (Auto) 0.7 Eos # (Auto) 0.0 Baso # (Auto) 0.0 Immature Gran # (Auto) 0.17 H Absolute Nucleated RBC 0.00 Immature Gran % 1 H Nucleated RBC % 0 PT 12.0 INR 1.1 APTT VBG pH 7.40 VBG pCO2 43 VBG pO2 27 VBG O2 Sat (Oni) 45 L VBG Base Excess 1 Sodium 158 H 159 H Potassium 4.0 3.7 Chloride 115 H 122 H* Carbon Dioxide 25.1 22.0 Anion Gap 18 H 15 BUN 77 H 75 H Creatinine 2.5 H 2.3 H Estim Creat Clear Calc Not Performed. 10.8 L eGFR 18 L 20 L BUN/Creatinine Ratio 31 H 33 H Glucose 118 H 124 H Calculated Osmolality 336 H 337 H Lactic Acid 2.7 H 1.5 Calcium 10.3 9.0 Corrected Calcium 10.3 H 9.7 Phosphorus 3.8 Total Bilirubin 0.7 AST 23 ALT 20 Alkaline Phosphatase 133 H Ammonia < 10 L Troponin I 0.081 H* 0.060 H* B-Natriuretic Peptide 360 H Total Protein 6.8 Albumin 4.0 3.1 L D Globulin 2.8 Albumin/Globulin Ratio 1.4 Procalcitonin 0.77 H Ur Collection Type Catheter Urine Color Yellow Urine Clarity Turbid A Urine pH 8.0 H Ur Specific [place] 1.016 Urine Protein 1+ A Urine Glucose (UA) Negative Urine Ketones Negative Urine Blood 3+ A Urine Nitrite Negative Urine Bilirubin Negative Urine Urobilinogen (Auto) 6.0 Ur Leukocyte Esterase Positive Urine RBC 24 H Urine WBC 163 H Ur Squamous Epith Cells 2 Urine Bacteria 1+ A Ur Culture Indicated? Yes Urine Opiates Screen Positive A Urine Fentanyl Screen Negative Ur Barbiturates Screen Negative U Amphetamin/Meth Scrn Negative U Benzodiazepines Scrn Negative U Cocaine Metab Screen Negative U Marijuana (THC) Screen Negative Ethyl Alcohol < 3.0 Blood Type A Positive Antibody Screen NEGATIVE Blood Bank Wristband ID Yes 02/27/25 02/28/25 02/28/25 21:56 01:53 04:43 WBC 12.3 H D RBC 3.77 L Hgb 11.0 L D Hct 34.8 L MCV 92 MCH 29.2 MCHC 31.6 RDW Std Deviation 53.2 H Plt Count 228 D Neut % (Auto) 93 H Lymph % (Auto) 3 L [place] % (Auto) 3 Eos % (Auto) 0 Baso % (Auto) 0 Neut # (Auto) 11.4 H Lymph # (Auto) 0.3 L [place] # (Auto) 0.4 Eos # (Auto) 0.0 Baso # (Auto) 0.0 Immature Gran # (Auto) 0.06 H Absolute Nucleated RBC 0.00 Immature Gran % 1 H Nucleated RBC % 0 PT 12.2 INR 1.1 APTT 23.1 VBG pH VBG pCO2 VBG pO2 VBG O2 Sat (Oni) VBG Base Excess Sodium 162 H* 158 H Potassium 3.2 L D Chloride Carbon Dioxide Anion Gap BUN Creatinine Estim Creat Clear Calc eGFR BUN/Creatinine Ratio Glucose Calculated Osmolality Lactic Acid 1.3 Calcium Corrected Calcium Phosphorus Total Bilirubin AST ALT Alkaline Phosphatase Ammonia Troponin I Cancelled B-Natriuretic Peptide Total Protein Albumin Globulin Albumin/Globulin Ratio Procalcitonin Ur Collection Type Urine Color Urine Clarity Urine pH Ur Specific [place] Urine Protein Urine Glucose (UA) Urine Ketones Urine Blood Urine Nitrite Urine Bilirubin Urine Urobilinogen (Auto) Ur Leukocyte Esterase Urine RBC Urine WBC Ur Squamous Epith Cells Urine Bacteria Ur Culture Indicated? Urine Opiates Screen Urine Fentanyl Screen Ur Barbiturates Screen U Amphetamin/Meth Scrn U Benzodiazepines Scrn U Cocaine Metab Screen U Marijuana (THC) Screen Ethyl Alcohol Blood Type Antibody Screen Blood Bank Wristband ID ABG Interpretation ABG results: 02/27/25 12:29 VBG pH 7.40 VBG pCO2 43 VBG pO2 27 VBG Base Excess 1 Quality Measures Quality Measures none Advance care planning discussed with:: spouse Assessment & Plan Assessment Current Active Medications: Generic Name Dose Route Start Last Admin Trade Name Freq PRN Reason Stop Dose Admin Acetaminophen 650 mg 02/27/25 15:28 Acetaminophen 325 Mg Tablet PO 03/29/25 15:27 Q6H PRN Fever >101.5 Hydrocodone Bitart/Acetaminophen 1 tab 02/27/25 18:40 Hydrocodone/Apap 5/325 Tablet PO 03/04/25 18:39 Q8HR PRN PAIN SCALE 4-10(Mod-Sev Haloperidol Lactate 2 mg 02/27/25 19:16 Haloperidol Lact Inj 5 Mg/Ml Vial IV 03/29/25 19:15 X1 PRN AGITATION (SEVERE) Dextrose 1,000 mls @ 100 mls/hr 02/27/25 22:56 02/28/25 05:00 D5w IV 02/28/25 08:55 Not Given .Q10H LORNE Diltiazem HCl 125 mg in 125 mls @ 5 mls/hr 02/28/25 04:51 02/28/25 06:22 Diltiazem In D5w 125 Mg IV 03/30/25 04:50 10 mg/hr .Q24H LORNE 10 mls/hr Infusion 5 MG/HR Ceftriaxone Sodium 2 gm/ 50 mls @ 100 mls/hr 02/28/25 07:44 Sodium Chloride IV 03/07/25 07:43 QDAY LORNE Ondansetron HCl 4 mg 02/27/25 15:28 Ondansetron Inj 2 Mg/Ml Inj 2 Ml IVP 03/29/25 15:27 Q6H PRN NAUSEA OR VOMITING Protocol Sennosides 1 tab 02/27/25 15:28 Senna Tablet PO 03/29/25 15:27 QDAY PRN constipation Protocol Plan 85F with history of colitis, glaucoma, depression, dementia, and, chronic pelvic pain syndrome admitted for acute encephalopathy, found to have paroxysmal atrial flutter. #Paroxysmal atrial flutter and fibrillation. New-onset atrial flutter/fibrillation Patient converted to sinus rhythm after IV diltiazem 10 mg. CHADS-VASC score estimated at 4 Plan: - Cardiology consulted - appreciate recommendations. - High bleeding and fall risk - anticoagulation deferred for now - Discontinue diltiazem. - Initiate Amiodarone drip for rhythm control. - Echo and Doppler study pending to assess LV function, wall motion, and valvular pathology. - Continuous telemetry monitoring. # Gram-Negative [place] Bacteremia # Leukocytosis Likely urinary source given urinalysis findings and concurrent UTI. Plan: - Increase Ceftriaxone to 2 g IV daily. - Monitor CBC daily; trend WBC. - Follow up on blood culture speciation and sensitivities; tailor antibiotics accordingly. #Acute encephalopathy Likely metabolic vs delirium secondary to UTI. Progressive confusion and weakness over the past year (per ), acutely worsened. Initially present with complaint of increased confusion, progressive weakness over the past year per . Initial Na 158. Initial UA WBC 163, Leukocyte positive, 1+ urine bacteria. CT head (02/27): No acute intracranial abnormality. CXR (02/27): No pneumonia or pulmonary edema. Plan: - Slow sodium correction, around 0.5 mEq/L/hr, not exceeding 8?10 mEq/L in 24 hours. - Aspiration precautions: HOB >30? - NPO until swallow screen passed. Speech therapy attempted swallow screen on 02/28 and patient unable to be roused - will try to eval again tomorrow. - NG tube - Increase Ceftriaxone to 2 g IV daily. #Hypernatremia Goal: Lower the serum sodium by 10mEq/L in 24H. Calculate aldosterone to renin ratio (>20:1 indicate hyperaldosteronism) Plan - Continue IV Dextrose 500 mls @ 100 mls/hr IV .Q5H (100 mls/hr) - Sodium check q4h until goal achieved - Monitor for volume overload given age and possible cardiac dysfunction. - Replete electrolyte as needed - Fingerstick glucose check Q4H. Can discontinue order once patient off IV D5W. #Sepsis (UTI Source)/SIRS 2/4 qSOFA score: 1 Initial UA WBC 163, Leukocyte positive, 1+ urine bacteria. Plan: - Sepsis protocol followed: early antibiotics, fluid resuscitation, cultures before antibiotics, vasopressors if indicated. - Urine cultures pending. - Continue ceftriaxone 2 g IV daily. - Maintain MAP > 65 mmHg - Velazquez catheter in place for output monitoring; reassess daily for removal. - Monitor vital signs closely. #LU, prerenal BUN/Cr ratio of 31. Dry mucosa on physical exam. Plan: - Continue IV fluids as above, ensuring sodium correction rate limits are respected. - Monitor renal function and urine output. - Plasma aldosterone and renin activity pending; will calculate ratio (>20:1 suggests primary hyperaldosteronism). - Replete electrolytes as needed. - Renal dose med, avoid nephrotoxin #Troponemia - downtrending Initial troponin 0.081, likely from dehydration and LU. Plan: - Peaked at 0.081, repeat troponin 0.060. No need to trend further. Chronic medical problem #History of glaucoma #Dementia Plan: - Resume donepezil 10mg PO QD once mentation imrpove. #Chronic pelvic pain syndrome Plan: - Resume home [place] or provide multimodal pain control Health Maintenance: Dispo: Med[employer] DVT prophylaxis: SCDs GI prophylaxis: Protonix 40 Diet: NPO until mentation improve, then advance diet Lines: Peripheral IV, velazquez catheter Code status: Full code Patient plan of care was discussed with the senior resident, Dr. Linares, and attending physician, Dr. Schultz. Ahmet Rodriguez DO Attending Provider Attestation/Addendum I, Elle Schultz DO, attest that I was physically present for the [place]bott portions of the service and evaluated the patient with the resident and I reviewed and discussed the case with the resident and agree with the resident's findings and plans of care as documented above Patient seen and eval this a.m. Patient is very encephalopathic. She is very confused and has been requiring restraints. Patient has been trying to get out of the bed for this reason. She is currently sinus rhythm. However, patient has had episodes of a flutter on admission will consult cardiology for further recommendations due to new onset a flutter. She is also noted to grow GNR in her urine and blood cultures. Will follow-up with final cultures and sensitivities. Afebrile overnight otherwise. Will increase Rocephin from 1 g to 2 g due to bacteremia. She remains hypernatremic with sodium of 154. Will continue to trend sodium every 4 hours continue D5 water. Will place an NG tube to start free water flushes as well. Case was discussed with cardiology who had seen patient about 2 years ago. He states that the patient's dementia has been progressively worsening for the past 2 years as he is familiar with the family. Patient's has expressed that he would like for patient to go to [facility] on discharge due to his daughter being there as well. Currently pending echocardiogram to evaluate for a flutter. Cardiology recommends switching Cardizem drip to amiodarone drip. She has an elevated [id number] of 4, but due to risk of bleeding and falls outweighing the benefits of anticoagulation, we will hold off on any full dose anticoagulation at this time.
[2025-02-28] MEDS: cefTRIAXone 2 GM in SODIUM CHLORIDE 0.9% (Popper) 50 ML IV (08:17)
[2025-02-28] MEDS: DEXTROSE 5%-WATER 500 ML 100 ML IV (08:21)
[2025-02-28 08:33] LABS: Anion Gap 12 (7-16); BUN/Creatinine Ratio 29 Ratio (12-20); Blood Urea Nitrogen 53 mg/dL (9-23); Calcium 8.9 mg/dL (8.3-10.6); Carbon Dioxide 23.9 mMol/L (20.0-31.0); Chloride 118 mMol/L (98-107); Creatinine (Component) 1.8 mg/dL (0.6-1.3); Estimated Creatinine Clearance 13.9 mL/min (>60); Glucose 167 mg/dL (74-106); Osmolality,Calculated 323 (275-295); Potassium 3.3 mMol/L (3.4-5.1); Sodium 154 mMol/L (136-145); eGFR 27 See Note
[2025-02-28 08:34] LABS: Alanine Aminotransferase 13 U/L (10-49); Albumin, Serum 3.1 gm/dL (3.4-4.8); Albumin/Globulin Ratio 1.3 (1.2-2.2); Alkaline Phosphatase 105 U/L (46-116); Aspartate Amino Transferase 13 U/L (0-34); Bilirubin,Total 0.4 mg/dL (0.3-1.2); Calcium (Corrected) 9.6 mg/dL (8.5-10.1); Globulin 2.4 gm/dL (2.3-3.5); Magnesium 2.0 mg/dL (1.6-2.6); Phosphorous 2.6 mg/dL (2.4-5.1); Total Protein 5.5 gm/dL (5.7-8.2)
--- NOTE | 2025-02-28 09:53 | ECHO_ITS ---
Transthoracic Echo Report Ht (in): 64 Wt (lb): 83 Exam Location: Echo Lab Status: Inpatient [employer] Operator: Heather Watt Indications: Procedure Performed: BP: 140 / 95 HR: 87 MEASUREMENTS (Male / Female) Normal Values 2D ECHO LV Diastolic Diameter PLAX 3.1 cm 4.2 - 5.9 / 3.9 - 5.3 cm LV Systolic Diameter PLAX 2.2 cm IVS Diastolic Thickness 1.2 cm 0.6 - 1.0 / 0.6 - 0.9 cm LVPW Diastolic Thickness 1.6 cm 0.6 - 1.0 / 0.6 - 0.9 cm LV Relative Wall Thickness 0.9 LVOT Diameter 1.7 cm Aortic Root Diameter 3.1 cm LA Volume Index 20.2 cm?/m? 16 - 28 cm?/m? Ascending Aorta Diameter 2.5 cm M-MODE AV Cusp Separation MM 1.5 cm DOPPLER AV Peak Velocity 119.0 cm/s AV Peak Gradient 5.7 mmHg AV Mean Gradient 3.0 mmHg AV Velocity Time Integral 25.3 cm LVOT Peak Velocity 105.0 cm/s LVOT Peak Gradient 4.4 mmHg LVOT Velocity Time Integral 22.3 cm LVOT Cardiac Index 3427.3 cm?/min?m? AV Area Cont Eq vti 2.0 cm? AV Area Cont Eq pk 2.0 cm? MV Area PHT 4.3 cm? Mitral E Point Velocity 39.5 cm/s Mitral A Point Velocity 67.1 cm/s Mitral E to A Ratio 0.6 LV E' Lateral Velocity 6.0 cm/s Mitral E to LV E' Lateral Ratio 6.6 LV E' Septal Velocity 4.8 cm/s Mitral E to LV E' Septal Ratio 8.2 TR Peak Velocity 233.0 cm/s TR Peak Gradient 21.7 mmHg PV Peak Velocity 105.0 cm/s PV Peak Gradient 4.4 mmHg FINDINGS Left Ventricle Moderate - Severe LVH. There is grade I diastolic dysfunction of the left ventricle (impaired relaxation pattern). The ejection fraction is visually estimated at 55-60%. Right Ventricle The right ventricle is normal in size and systolic function. The estimated right ventricular systolic pressure, 29 mmHg. Left Atrium The left atrium is normal by two-dimensional, color flow and Doppler imaging with no structural abnormalities, no thrombus formation present. Right Atrium The right atrium is normal by two-dimensional imaging, color flow and Doppler imaging with no structural abnormalities, no thrombus formation present. Atrial Septum The interatrial septum appears normal with no evidence of a shunt. Aorta The aorta is normal by two-dimensional, color flow and Doppler interrogation. Mitral Valve Mild mitral annular calcification. Anterior Mitral leaflet thickened.[id number] mitral regurgitation. Aortic Valve The aortic valve is trileaflet with focal thickening of the aortic valve cusps. color flow and Doppler interrogation. There is no significant aortic valve regurgitation. Tricuspid Valve The tricuspid valve is normal by two-dimensional, color flow and Doppler interrogation.there is mild tricuspid valve regurgitation. Pulmonic Valve Trace pulmonic valve regurgitation. Vessels The pulmonary artery appears normal. The inferior vena cava pulmonary and hepatic veins appear normal. Pericardium The pericardium is normal by two-dimensional imaging. There is no significant pericardial effusion. CONCLUSIONS Indication: new onset aflutter/fib Normal left ventricular size and function. Approximate ejection fraction is 55%. Right ventricle is normal in size and function Mild-moderate MR with anterior mitral leaflet thickening Aortic valve sclerosis Mild TR, Trace DE Stephenie Price (Electronically Signed) Final Date: 04 March 2025 16:19
--- NOTE | 2025-02-28 10:43 | PCS.ST ---
[employer] attempted swallow evaluation. Pt unable to be roused. Pt resting with open mouth. Continue NPO. [employer] will attempt swallow evaluation tomorrow morning.
[2025-02-28 10:45] LABS: Sodium 155 mMol/L (136-145)
[2025-02-28] MEDS: POTASSIUM CHL 10 mEq IVPB 10 MEQ/100 ML BAG 50 MEQ IV ×2 (13:12→14:31)
[2025-02-28 14:45] LABS: Sodium 155 mMol/L (136-145)
--- NOTE | 2025-02-28 14:45 | XR_ITS ---
Examination: AP chest single view Technique one AP portable semiupright chest single view Date and time: February 28, 2025 1458 hours Comparison February 27, 2025 INDICATIONS: Postoperative gastric tube placement FINDINGS: Mild enlargement cardiac contour No lobar pneumonia or pulmonary edema Orogastric tube in stomach, tip below the level of the film IMPRESSION: Orogastric tube in stomach, tip below the level of the film
[2025-02-28] MEDS: AMIODARONE 150 MG IVPB 150 MG/100 ML BAG 600 MG IV (16:49)
[2025-02-28] MEDS: AMIODARONE 360 MG IVPB 360 MG/200 ML BAG 33.333 MG IV (17:20)
--- NOTE | 2025-02-28 17:50 | PC.NURSE ---
unable to insert another iv site, called dr. askew and made aware. unable to give k-rider x3
--- NOTE | 2025-02-28 18:10 | PC.NURSE ---
Received report from Kamila FUNEZ, she stated that she notified Dr. Flip Lozano, pt only has 1 working IV running amiodarone. Potassium not running at the moment.
--- NOTE | 2025-02-28 19:38 | ESCONSULT_ITS ---
RE: MELLY SMILEY : 1940 DATE OF CONSULTATION: 02/28/2025 CONSULTING PHYSICIAN: Hospitalist, Dr. Elle Schultz REASON FOR CONSULTATION: Evaluation of atrial fibrillation and flutter, paroxysmal. CHIEF COMPLAINT: Palpitations and rapid heart rate. HISTORY OF PRESENT ILLNESS: The patient is an 85-year-old female with past medical history of chronic hypotension requiring midodrine in the past and dementia, which has progressed significantly over the last several years. She was brought to the hospital with altered mental status by her , who is unable to take care of her. While she was in the hospital, she suddenly developed an episode of atrial flutter/fibrillation with rapid heart rate of 150 beats per minute and was transferred to the ICU telemetry or floor for management. The patient was given IV diltiazem 10 mg for her rate control. She in fact went back to sinus rhythm. The patient is unable to give any history. I did speak to the , who is very well known to me, who said that her general condition is declined rapidly over the last year or so. Dementia has progressed severely. She has history of anxiety, depression, dementia, colitis, and multiple problems with history of chronic hypotension requiring midodrine. She is now unable to swallow. She has altered mental status, not complaining of any symptoms and remains in sinus rhythm, sinus tachycardia, currently on diltiazem drip. Rhythm strip showed evidence of atrial flutter and 12-lead EKG showed atypical atrial flutter with positive P waves in V1 and possibly slightly negative in II, III, and aVF, but at times, she appears to be in atrial fibrillation as well. ALLERGIES: UNKNOWN. MEDICATIONS: Currently receiving diltiazem. PAST MEDICAL HISTORY: History of anxiety, depression, glaucoma, colitis, dementia, chronic pelvic pain syndrome, left nephrolithiasis, colon cancer surgery in 1986, left ovarian surgery in 1986, back surgery in 2008 and 2013, cataract surgery in and 2014, and total hip replacement in 2016. SOCIAL HISTORY: The patient is and lives with her . was unable to take care of her because of severe dementia. REVIEW OF SYSTEMS: CARDIOVASCULAR: As discussed earlier. GASTROINTESTINAL: Significant weight loss, not eating well or drinking well. GENITOURINARY: No frequency or dysuria. History of remote renal stones with no active stones for now. PHYSICAL EXAMINATION: GENERAL: Shows well-nourished, thin-built, elderly, chronically ill lady, who is awake, but unable to communicate and in no acute distress. VITAL SIGNS: Her heart rate is now 105 beats per minute, sinus tachycardia, blood pressure is 130/76, and patient is on OxyMask, saturating well. HEENT: Head is atraumatic and normocephalic. NECK: Supple. LUNGS: Decreased breath sounds. HEART: S1 and S2 irregular. ABDOMEN: Thin and soft. EXTREMITIES: Mild edema. GENITOURINARY AND RECTAL: Not performed. NEUROLOGIC: The patient is not able to cooperate. Unable to do a complete neurologic examination. The patient is somewhat lethargic and noncommunicative at this time. EKG showed evidence of atrial flutter with rapid ventricular response of 150 beats per minute. A chest x-ray showed evidence of mild cardiomegaly, otherwise, negative. IMPRESSION: 1. Paroxysmal atrial flutter and fibrillation. 2. Severe dementia and anxiety. 3. Altered mental status. 4. History of chronic hypotension, now patient is normotensive. 5. Failure to thrive. RECOMMENDATION AND DISCUSSION: The patient will be discontinued diltiazem. We will start her on amiodarone drip, IV bolus and drip, to see if we can maintain in sinus rhythm. The patient's CHADS-VASc score appears to be about 4, but her risk of stroke is only 3%, but risk of bleeding and falls is very high and so I decided not to recommend as the risk/benefit does not favor anticoagulation it at this point. We will get a cardiac echo and Doppler study for assessment of LV function and left ventricular wall motion. DT: 18:20:05 TT: 19:31:00 Ref: [id number] - TID: [id number]
[2025-02-28 22:14] LABS: Sodium 152 mMol/L (136-145)
[2025-02-28] MEDS: AMIODARONE 360 MG IVPB 360 MG/200 ML BAG 16.667 MG IV (23:27)
[2025-03-01] VITALS (9 sets, daily range): BP systolic 126–164; BP diastolic 78–81; PULSE 68–121; RESP 16–20; TEMP 36–36.8; O2SAT 97–100; BMI 14.2
[2025-03-01 02:15] LABS: Sodium 152 mMol/L (136-145)
[2025-03-01 06:28] LABS: Basophils # (Auto) 0.0 Thou/mm3 (0.0-0.2); Basophils % (Auto) 0 % (0-2.5); Eosinophils # (Auto) 0.0 Thou/mm3 (0.0-0.5); Eosinophils % (Auto) 0 % (0-10); Hematocrit 40.9 % (36.0-46.0); Hemoglobin 13.0 g/dL (12.0-16.0); Immature Granulocytes Auto 0.10 Thou/mm3 (0.00-0.00); Lymphocytes # (Auto) 0.3 Thou/mm3 (1.0-4.8); Lymphocytes % (Auto) 2 % (10-50); Mean Corpuscular HGB Conc 31.8 g/dl (31.0-37.0); Mean Corpuscular Hemoglobin 28.4 pg (25.0-35.0); Mean Corpuscular Volume 90 fL (80-100); Monocytes # (Auto) 0.4 Thou/mm3 (0.0-0.8); Monocytes % (Auto) 3 % (0-12); Neutrophils # (Auto) 14.4 Thou/mm3 (1.8-7.7); Neutrophils % (Auto) 95 % (37-80); Nucleated Red Blood Cell # 0.00 Thou/mm3 (0.00-0.00); Nucleated Red Blood Cell % 0 /100 WBC (0); Platelet Count 254 Thou/mm3 (140-440); RDW Standard Deviation 49.1 fL (36.4-46.3); Red Blood Count 4.57 Miln/mm3 (4.00-5.20); White Blood Count 15.2 Thou/mm3 (3.6-11.0)
[2025-03-01 07:03] LABS: Sodium 150 mMol/L (136-145)
[2025-03-01 07:20] LABS: Alanine Aminotransferase 15 U/L (10-49); Albumin, Serum 3.5 gm/dL (3.4-4.8); Albumin/Globulin Ratio 1.3 (1.2-2.2); Alkaline Phosphatase 117 U/L (46-116); Anion Gap 13 (7-16); Aspartate Amino Transferase 16 U/L (0-34); BUN/Creatinine Ratio 29 Ratio (12-20); Bilirubin,Total 0.3 mg/dL (0.3-1.2); Blood Urea Nitrogen 47 mg/dL (9-23); Calcium 9.5 mg/dL (8.3-10.6); Calcium (Corrected) 9.9 mg/dL (8.5-10.1); Carbon Dioxide 25.8 mMol/L (20.0-31.0); Chloride 113 mMol/L (98-107); Creatinine (Component) 1.6 mg/dL (0.6-1.3); Estimated Creatinine Clearance 15.6 mL/min (>60); Globulin 2.6 gm/dL (2.3-3.5); Glucose 98 mg/dL (74-106); Magnesium 1.8 mg/dL (1.6-2.6); Osmolality,Calculated 313 (275-295); Phosphorous 2.1 mg/dL (2.4-5.1); Potassium 3.4 mMol/L (3.4-5.1); Sodium 152 mMol/L (136-145); Total Protein 6.1 gm/dL (5.7-8.2); eGFR 32 See Note
--- NOTE | 2025-03-01 09:42 | XR_ITS ---
Examination: AP chest single view TECHNIQUE: Supine AP portable chest single view Date and time: March 01, 2025 1011 hours Comparison February 28, 2025 INDICATIONS: Reposition orogastric tube FINDINGS: Orogastric tube in the stomach, the tip is below the level film Mild prominence left ventricle Lungs are clear IMPRESSION: Recommend abdomen film follow-up to assess tip of the gastric tube
--- NOTE | 2025-03-01 10:00 | ESPR_ITS ---
<Statement entered by Prasad Dillard MD - 03/02/25 11:26> Patient was examined and case was reviewed with team including attending physician. Note reviewed, I agree with most of its contents and agree with the patient's care. Patient seen today at the bedside. Patient still very somnolent and lethargic. Patient is still NPO as she hasnt been tolerating PO intake given her mental status. Patient currently on Amiodarone drip and will transition to PO route once drip is finished or as recommended by cardiology services. Additionally she is currently on IVFs for her hyponatremia which is overall improving slowly. Will likely discontinue IVFs in nehemiah am if continued improvement in Na lvls. Sodium checks changed to every 6 hours now. Will discuss with the family in regards to code status as patient has very advanced dementia and prognosis seems poor at this time. Prasad Dillard MD PGY-2 Documentation for date of: 03/01/25 Subjective Subjective Interval history: Patient was seen at bedside this morning. The right arm was noted to be significantly bruised, likely from multiple attempts at IV access. Per nursing staff, the patient partially dislodged her NG tube earlier today. Due to abdominal tenderness to palpation and mild distention, an abdominal X-ray was obtained, which demonstrated a nonobstructive bowel gas pattern and no free air. The radiology report recommended retracting the orogastric tube by 4 cm, which was performed by the nurse and confirmed on repeat X-ray. Exam Vital Signs Temp Pulse Resp BP Pulse Ox O2 Del Method O2 Flow Rate 96.8 F 68 19 158/81 H 97 Nasal Cannula 2 03/01/25 08:00 03/01/25 08:00 03/01/25 08:00 03/01/25 08:00 03/01/25 08:00 03/01/25 08:00 03/01/25 08:00 Narrative Exam Physical Exam General: Frail and thin. Unable to communicate, nonverbal. NG tube in place. HEENT: Normocephalic, atraumatic. Mucous membranes dry. Heart: Regular rate and rhythm, no murmurs. Lungs: Decreased breath sounds. Abdomen: Thin, soft, nondistended, nontender. No guarding or rebound tenderness. Neurologic: Patient unable to complete neuro exam. Extremities: Mild edema. Skin: No rash. Ecchymoses present on right forearm. Objective Labs 03/02/25 02:58 03/02/25 02:58 Labs: Laboratory Results - last 24 hr 02/28/25 02/28/25 02/28/25 10:06 13:55 21:44 WBC RBC Hgb Hct MCV MCH MCHC RDW Std Deviation Plt Count Neut % (Auto) Lymph % (Auto) [place] % (Auto) Eos % (Auto) Baso % (Auto) Neut # (Auto) Lymph # (Auto) [place] # (Auto) Eos # (Auto) Baso # (Auto) Immature Gran # (Auto) Absolute Nucleated RBC Immature Gran % Nucleated RBC % Sodium 155 H 155 H 152 H Potassium Chloride Carbon Dioxide Anion Gap BUN Creatinine Estim Creat Clear Calc eGFR BUN/Creatinine Ratio Glucose Calculated Osmolality Calcium Corrected Calcium Phosphorus Magnesium Total Bilirubin AST ALT Alkaline Phosphatase Total Protein Albumin Globulin Albumin/Globulin Ratio 03/01/25 03/01/25 03/01/25 01:54 05:40 05:40 WBC 15.2 H RBC 4.57 Hgb 13.0 D Hct 40.9 MCV 90 MCH 28.4 MCHC 31.8 RDW Std Deviation 49.1 H Plt Count 254 Neut % (Auto) 95 H Lymph % (Auto) 2 L [place] % (Auto) 3 Eos % (Auto) 0 Baso % (Auto) 0 Neut # (Auto) 14.4 H Lymph # (Auto) 0.3 L [place] # (Auto) 0.4 Eos # (Auto) 0.0 Baso # (Auto) 0.0 Immature Gran # (Auto) 0.10 H Absolute Nucleated RBC 0.00 Immature Gran % 1 H Nucleated RBC % 0 Sodium 152 H 150 H 152 H Potassium 3.4 Chloride 113 H Carbon Dioxide 25.8 Anion Gap 13 BUN 47 H Creatinine 1.6 H Estim Creat Clear Calc 15.6 L eGFR 32 L BUN/Creatinine Ratio 29 H Glucose 98 D Calculated Osmolality 313 H Calcium 9.5 Corrected Calcium 9.9 Phosphorus 2.1 L Magnesium 1.8 Total Bilirubin 0.3 AST 16 ALT 15 Alkaline Phosphatase 117 H Total Protein 6.1 Albumin 3.5 Globulin 2.6 Albumin/Globulin Ratio 1.3 ABG Interpretation ABG results: 02/27/25 12:29 VBG pH 7.40 VBG pCO2 43 VBG pO2 27 VBG Base Excess 1 Quality Measures Quality Measures none Advance care planning discussed with:: patient and spouse Assessment & Plan Assessment Current Active Medications: Generic Name Dose Route Start Last Admin Trade Name Freq PRN Reason Stop Dose Admin Acetaminophen 650 mg 02/27/25 15:28 Acetaminophen 325 Mg Tablet PO 03/29/25 15:27 Q6H PRN Fever >101.5 Hydrocodone Bitart/Acetaminophen 1 tab 02/27/25 18:40 Hydrocodone/Apap 5/325 Tablet PO 03/04/25 18:39 Q8HR PRN PAIN SCALE 4-10(Mod-Sev Dextrose 500 mls @ 100 mls/hr 02/28/25 08:16 02/28/25 08:21 D5w IV 03/30/25 07:59 100 mls/hr .Q5H LORNE Administration Ceftriaxone Sodium/Dextrose 2 gm in 50 mls @ 100 mls/hr 03/01/25 09:00 Rocephin/D5w 2gm IV 03/07/25 07:43 QDAY LORNE Amiodarone HCl/Dextrose 360 mg in 200 mls @ 16.667 mls/hr 02/28/25 21:01 02/28/25 23:27 Nexterone Ivpb IV 03/01/25 21:00 16.667 mls/hr .Q12H LORNE Administration Protocol Potassium Phosphate 15 mmol in 250 mls @ 62.5 mls/hr 03/01/25 07:50 Pot Phos 15 Mmol In Ns 250 Ml IV 03/01/25 11:49 X1 ONE Ondansetron HCl 4 mg 02/27/25 15:28 Ondansetron Inj 2 Mg/Ml Inj 2 Ml IVP 03/29/25 15:27 Q6H PRN NAUSEA OR VOMITING Protocol Sennosides 1 tab 02/27/25 15:28 Senna Tablet PO 03/29/25 15:27 QDAY PRN constipation Protocol Plan 85F with history of colitis, glaucoma, depression, dementia, and, chronic pelvic pain syndrome admitted for acute encephalopathy, found to have paroxysmal atrial flutter. #Paroxysmal atrial flutter and fibrillation. New-onset atrial flutter/fibrillation Patient converted to sinus rhythm after IV diltiazem 10 mg. CHADS-VASC score estimated at 4. Plan: - Cardiology consulted - appreciate recommendations. - High bleeding and fall risk - anticoagulation deferred for now. - Discontinue diltiazem. - Continue Amiodarone drip for rhythm control. - Echo and Doppler study pending to assess LV function, wall motion, and valvular pathology. - Continuous telemetry monitoring. #E. coli bacteremia #Leukocytosis Likely urinary source given urinalysis findings and concurrent UTI. Gram negative suzanne found in both urine and blood cultures. WBCs 22.3 --> 12.3 --> 15.2. Plan: - Continue Ceftriaxone to 2 g IV daily (organism sensitive). - Monitor CBC daily; trend WBC. #Acute encephalopathy Likely metabolic vs delirium secondary to UTI. Progressive confusion and weakness over the past year (per ), acutely worsened. Initially present with complaint of increased confusion, progressive weakness over the past year per . Initial Na 158. Initial UA WBC 163, Leukocyte positive, 1+ urine bacteria. CT head (02/27): No acute intracranial abnormality. CXR (02/27): No pneumonia or pulmonary edema. Plan: - Slow sodium correction with D5 water. - Aspiration precautions: HOB >30?. - Failed swallow screen. Speech therapy recommend NG feeds. - Keep NPO - Placed NG tube to start free water flushes. - Continue Ceftriaxone to 2 g IV daily. #Hypernatremia Goal: Lower the serum sodium by 10mEq/L in 24H. Calculate aldosterone to renin ratio (>20:1 indicate hyperaldosteronism) Plan - Continue IV Dextrose 500 mls @ 100 mls/hr IV .Q5H (100 mls/hr) - Sodium check Q4h - Monitor for volume overload given age and possible cardiac dysfunction. - Replete electrolyte as needed - Fingerstick glucose check Q4H. Can discontinue order once patient off IV D5W. #Sepsis (UTI Source)/SIRS 2/4 qSOFA score: 1 Initial UA WBC 163, Leukocyte positive, 1+ urine bacteria. Plan: - Sepsis protocol followed: early antibiotics, fluid resuscitation, cultures before antibiotics, vasopressors if indicated. - Continue ceftriaxone 2 g IV daily. - Maintain MAP > 65 mmHg - Velazquez catheter in place for output monitoring; reassess daily for removal. - Monitor vital signs closely. #LU, prerenal BUN/Cr ratio of 31. Dry mucosa on physical exam. Plan: - Continue IV fluids as above, ensuring sodium correction rate limits are respected. - Monitor renal function and urine output. - Plasma aldosterone and renin activity pending; will calculate ratio (>20:1 suggests primary hyperaldosteronism). - Replete electrolytes as needed. - Renal dose med, avoid nephrotoxin #Troponemia - downtrending Initial troponin 0.081, likely from dehydration and LU. Plan: - Peaked at 0.081, repeat troponin 0.060. No need to trend further. Chronic medical problem #History of glaucoma #Dementia Plan: - Resume donepezil 10mg PO QD once mentation imrpove. #Chronic pelvic pain syndrome Plan: - Resume home [place] or provide multimodal pain control Health Maintenance: Dispo: [employer] DVT prophylaxis: SCDs GI prophylaxis: Protonix 40 Diet: NPO until mentation improve, then advance diet Lines: Peripheral IV, velazquez catheter Code status: Full code Patient plan of care was discussed with the senior resident, Dr. Linares, and attending physician, Dr. Schultz. Ahmet Rodriguez DO Attending Provider Attestation/Addendum Devante, Elle Schultz DO, attest that I was physically present for the abbott portions of the service and evaluated the patient with the resident and I reviewed and discussed the case with the resident and agree with the resident's findings and plans of care as documented above Patient seen and eval this a.m. She remains very altered. Patient is able to state her name, but does not know where she is. Patient is quite agitated as she is requiring restraints. Hyponatremia has been improving, we will continue with free water flushes via NG tube and D5 water at this time. Blood culture and urine cultures are positive for E. coli and sensitive to Rocephin. Will continue Rocephin 2 g daily. She is currently on amiodarone drip and rate controlled. No acute events overnight otherwise. No family at bedside.will continue to follow with sodium checks every 4 hours. If improved by next sodium check at 1:30 PM, will switch to every 6 hours
--- NOTE | 2025-03-01 10:55 | PC.SS ---
Patient is a 85 year old female presenting to the hospital for AMS. Patient was not alert and oriented. MD UROLOGIST made phone call to her Adam who provided demographic information. Patients shared that patient does not have DME and will need it once she is medically clear and he assist her with ADL?s. confirmed PCP is Dr. Cordon last appointment was 02/26/25. Patient shared that due to his age and patients decline he is concerned that he can longer care for patient at home. Patient?s is requesting SNF placement. Patient?s shared that his daughter is a patient at [facility] and would like his to be placed at the same facility. MD UROLOGIST will follow up with doctors and PT to submit SNF referral to [facility]. PCP: Dr. Cordon Next of Kin: Adam, , D/C: SNF
[2025-03-01 11:21] LABS: Sodium 152 mMol/L (136-145)
--- NOTE | 2025-03-01 11:23 | XR_ITS ---
Examination: Abdomen AP single view Technique: AP portable supine abdomen, single view Exam date and time: March 01, 2025 1146 hours INDICATIONS: Reposition orogastric tube FINDINGS: Recommend retracting the orogastric tube 4 cm Nonobstructive bowel gas pattern No free air IMPRESSION: Recommend retracting the orogastric tube 4 cm
--- NOTE | 2025-03-01 11:30 | PC.DIETICIAN ---
Nutrition recommendations: Patient is at significant risk for refeeding syndrome. If EN is initiated, consider: 1. Jevity 1.2 at 20 ml/hr x 24 hrs (do not advance) via OG/NG tube by pump. If no IV fluids, water flushes 25 ml/hr (or per MD). 2. Thiamine 100mg/day for 7 days; provide first dose at least 30 minutes before starting nutrition. 3. Multivitamins/Minerals. 4. Daily labs for P, K, and Mg; replace as needed. If no electrolytes disturbances after 24 hrs, advance 10 ml every 12 hrs to goal rate of 50 ml/hr x 24 hrs. Continue with water flushes 25 ml/hr (or per MD).
--- NOTE | 2025-03-01 13:46 | XR_ITS ---
Examination: AP chest single view Technique : AP sitting portable chest single view Date and time: March 01, 2025 1449 hours INDICATIONS: Shortness of breath this week. FINDINGS: Normal heart size No pneumonia or pulmonary edema Orogastric tube in the stomach, tip below the level film IMPRESSION: No pneumonia or pulmonary edema
[2025-03-01 14:36] LABS: Sodium 149 mMol/L (136-145)
--- NOTE | 2025-03-01 15:00 | PC.SS ---
Rounding note: monitoring white blood count, patient wants Law
[2025-03-01] MEDS: AMIODARONE 360 MG IVPB 360 MG/200 ML BAG 16.667 MG IV (15:11)
[2025-03-01] MEDS: DEXTROSE 5%-WATER 500 ML 100 ML IV ×2 (15:18→21:15)
[2025-03-01] MEDS: POTASSIUM CHLORIDE 10% 20 MEQ/15 ML UDC 40 MEQ GT (15:19)
--- NOTE | 2025-03-01 16:28 | PC.SS ---
[employer] TECH[employer]ICAL DEVELOPER informed Ann from [facility] that patient is requesting their facility, Shireen will follow up tomorrow.
--- NOTE | 2025-03-01 21:21 | ESPR_ITS ---
<Statement entered by Mehul Sal MD - 03/07/25 18:15> The patient personally examined by me still altered mental status due to dementia atrial fibrillation now back to normal sinus rhythm amiodarone controlled well no cardiac symptoms reported hemodynamically stable blood pressure on the low side evaluated patient with resident physician Dr. Manuel Vincent agree with the treatment plan recommendation as documented. Documentation for date of: 03/01/25 Subjective Subjective Interval history: Patient continues to be altered and unable to speak. Patient is no longer tachycardic but continues to be hypertensive with a pressure of 164/78. Will continue amiodarone. Exam Vital Signs Temp Pulse Resp BP Pulse Ox O2 Del Method O2 Flow Rate 96.8 F 96 19 164/78 H 97 Nasal Cannula 2 03/01/25 08:00 03/01/25 16:00 03/01/25 08:00 03/01/25 15:11 03/01/25 08:00 03/01/25 08:00 03/01/25 08:00 Narrative Exam General: Frail, chronically ill-appearing thin elderly lady. No acute distress Neurologic: Patient is awake but unable to communicate. HEENT: Normocephalic, atraumatic, mucous membranes moist. Pupils reactive to light. Heart: Regular rate and irregular rhythm. Lungs: Clear to auscultation bilaterally with no wheezing or crackles. Abdomen: Soft, nondistended, nontender, positive bowel sounds. No guarding or rebound tenderness. Extremities: Mild edema in LE bilaterally. 2+ radial and dorsalis pedis pulses bilaterally. Skin: Warm. Dry. No rash or ecchymoses. Objective Labs 03/01/25 05:40 03/01/25 13:53 Labs: Laboratory Results - last 24 hr 02/28/25 03/01/25 03/01/25 21:44 01:54 05:40 WBC 15.2 H RBC 4.57 Hgb 13.0 D Hct 40.9 MCV 90 MCH 28.4 MCHC 31.8 RDW Std Deviation 49.1 H Plt Count 254 Neut % (Auto) 95 H Lymph % (Auto) 2 L [place] % (Auto) 3 Eos % (Auto) 0 Baso % (Auto) 0 Neut # (Auto) 14.4 H Lymph # (Auto) 0.3 L [place] # (Auto) 0.4 Eos # (Auto) 0.0 Baso # (Auto) 0.0 Immature Gran # (Auto) 0.10 H Absolute Nucleated RBC 0.00 Immature Gran % 1 H Nucleated RBC % 0 Sodium 152 H 152 H 150 H Potassium Chloride Carbon Dioxide Anion Gap BUN Creatinine Estim Creat Clear Calc eGFR BUN/Creatinine Ratio Glucose Calculated Osmolality Calcium Corrected Calcium Phosphorus Magnesium Total Bilirubin AST ALT Alkaline Phosphatase Total Protein Albumin Globulin Albumin/Globulin Ratio 03/01/25 03/01/25 03/01/25 05:40 10:43 13:53 WBC RBC Hgb Hct MCV MCH MCHC RDW Std Deviation Plt Count Neut % (Auto) Lymph % (Auto) [place] % (Auto) Eos % (Auto) Baso % (Auto) Neut # (Auto) Lymph # (Auto) [place] # (Auto) Eos # (Auto) Baso # (Auto) Immature Gran # (Auto) Absolute Nucleated RBC Immature Gran % Nucleated RBC % Sodium 152 H 152 H 149 H Potassium 3.4 Chloride 113 H Carbon Dioxide 25.8 Anion Gap 13 BUN 47 H Creatinine 1.6 H Estim Creat Clear Calc 15.6 L eGFR 32 L BUN/Creatinine Ratio 29 H Glucose 98 D Calculated Osmolality 313 H Calcium 9.5 Corrected Calcium 9.9 Phosphorus 2.1 L Magnesium 1.8 Total Bilirubin 0.3 AST 16 ALT 15 Alkaline Phosphatase 117 H Total Protein 6.1 Albumin 3.5 Globulin 2.6 Albumin/Globulin Ratio 1.3 ABG Interpretation ABG results: 02/27/25 12:29 VBG pH 7.40 VBG pCO2 43 VBG pO2 27 VBG Base Excess 1 Quality Measures Quality Measures none Advance care planning discussed with:: spouse Assessment & Plan Assessment Current Active Medications: Generic Name Dose Route Start Last Admin Trade Name Freq PRN Reason Stop Dose Admin Acetaminophen 650 mg 02/27/25 15:28 Acetaminophen 325 Mg Tablet PO 03/29/25 15:27 Q6H PRN Fever >101.5 Hydrocodone Bitart/Acetaminophen 1 tab 02/27/25 18:40 Hydrocodone/Apap 5/325 Tablet PO 03/04/25 18:39 Q8HR PRN PAIN SCALE 4-10(Mod-Sev Dextrose 500 mls @ 100 mls/hr 02/28/25 08:16 03/01/25 15:18 D5w IV 03/30/25 07:59 100 mls/hr .Q5H LORNE Administration Ceftriaxone Sodium/Dextrose 2 gm in 50 mls @ 100 mls/hr 03/01/25 09:00 03/01/25 19:27 Rocephin/D5w 2gm IV 03/07/25 07:43 Not Given QDAY LORNE Ondansetron HCl 4 mg 02/27/25 15:28 Ondansetron Inj 2 Mg/Ml Inj 2 Ml IVP 03/29/25 15:27 Q6H PRN NAUSEA OR VOMITING Protocol Sennosides 1 tab 02/27/25 15:28 Senna Tablet PO 03/29/25 15:27 QDAY PRN constipation Protocol Plan The patient is an 85-year-old female with past medical history of chronic hypotension requiring midodrine in the past and dementia, which has progressed significantly over the last several years. She was brought to the hospital with altered mental status by her , who is unable to take care of her. While she was in the hospital, she suddenly developed an episode of atrial flutter/fibrillation with rapid heart rate of 150 beats per minute and was transferred to the ICU telemetry or floor for management. EKG showed evidence of atrial flutter with rapid ventricular response of 150 beats per minute. #Paroxysmal atrial flutter and fibrillation. #Severe dementia and anxiety. #Altered mental status. #History of chronic hypotension, now patient is normotensive. #Failure to thrive. -CHADS-VASc score appears to be about 4, but her risk of stroke is only 3%, but risk of bleeding and falls is very high and so I decided not to recommend anticoagulation at this point as the risk/benefit does not favor Plan: - Continue amiodarone drip to maintain sinus rhythm - Echo and Doppler study for assessment of LV function and left ventricular wall motion. #Gram-negative suzanne bacteremia #Leukocytosis #Acute encephalopathy #Hypernatremia #Sepsis #LU #Troponin EMEA #History of glaucoma #Chronic pelvic pain syndrome The rest of the patient's hospital problems will be managed per the primary team. Patient was seen and discussed with my attending physician Dr. Sal. Manuel Vincent DO PGY-1.
[2025-03-01 23:52] LABS: Sodium 142 mMol/L (136-145)
[2025-03-02] VITALS (11 sets, daily range): BP systolic 112–145; BP diastolic 71–95; PULSE 87–139; RESP 16–25; TEMP 36.1–36.8; O2SAT 98–100
[2025-03-02 03:06] LABS: Basophils # (Auto) 0.0 Thou/mm3 (0.0-0.2); Basophils % (Auto) 0 % (0-2.5); Eosinophils # (Auto) 0.1 Thou/mm3 (0.0-0.5); Eosinophils % (Auto) 1 % (0-10); Hematocrit 34.3 % (36.0-46.0); Hemoglobin 11.2 g/dL (12.0-16.0); Immature Granulocytes Auto 0.10 Thou/mm3 (0.00-0.00); Lymphocytes # (Auto) 0.3 Thou/mm3 (1.0-4.8); Lymphocytes % (Auto) 2 % (10-50); Mean Corpuscular HGB Conc 32.7 g/dl (31.0-37.0); Mean Corpuscular Hemoglobin 28.9 pg (25.0-35.0); Mean Corpuscular Volume 88 fL (80-100); Monocytes # (Auto) 0.5 Thou/mm3 (0.0-0.8); Monocytes % (Auto) 4 % (0-12); Neutrophils # (Auto) 13.2 Thou/mm3 (1.8-7.7); Neutrophils % (Auto) 93 % (37-80); Nucleated Red Blood Cell # 0.00 Thou/mm3 (0.00-0.00); Nucleated Red Blood Cell % 0 /100 WBC (0); Platelet Count 232 Thou/mm3 (140-440); RDW Standard Deviation 46.9 fL (36.4-46.3); Red Blood Count 3.88 Miln/mm3 (4.00-5.20); White Blood Count 14.2 Thou/mm3 (3.6-11.0)
[2025-03-02 03:34] LABS: Alanine Aminotransferase 11 U/L (10-49); Albumin, Serum 2.8 gm/dL (3.4-4.8); Albumin/Globulin Ratio 1.3 (1.2-2.2); Alkaline Phosphatase 93 U/L (46-116); Anion Gap 10 (7-16); Aspartate Amino Transferase 16 U/L (0-34); BUN/Creatinine Ratio 19 Ratio (12-20); Bilirubin,Total 0.2 mg/dL (0.3-1.2); Blood Urea Nitrogen 29 mg/dL (9-23); Calcium 8.4 mg/dL (8.3-10.6); Calcium (Corrected) 9.4 mg/dL (8.5-10.1); Carbon Dioxide 20.6 mMol/L (20.0-31.0); Chloride 108 mMol/L (98-107); Creatinine (Component) 1.5 mg/dL (0.6-1.3); Estimated Creatinine Clearance 16.6 mL/min (>60); Globulin 2.1 gm/dL (2.3-3.5); Glucose 165 mg/dL (74-106); Magnesium 1.8 mg/dL (1.6-2.6); Osmolality,Calculated 287 (275-295); Phosphorous 1.4 mg/dL (2.4-5.1); Potassium 3.7 mMol/L (3.4-5.1); Sodium 139 mMol/L (136-145); Total Protein 4.9 gm/dL (5.7-8.2); eGFR 34 See Note
[2025-03-02] MEDS: DEXTROSE 5%-WATER 500 ML 100 ML IV (05:27)
[2025-03-02 08:52] LABS: Sodium 136 mMol/L (136-145)
[2025-03-02] MEDS: POT PHOS 15 mMol in NS 250 ML 15 MMOL/250 ML BAG 62.5 MMOL IV ×2 (09:47→14:36)
[2025-03-02] MEDS: AMIODARONE HCL 200 MG TABLET NG ×2 (09:47→20:02)
[2025-03-02] MEDS: cefTRIAXone/D5w 2gm 2 GM/50 ML BAG IV (09:47)
[2025-03-02] MEDS: SODIUM CHLORIDE 0.9% 1000 ML 1,000 ML 60 ML IV (11:38)
[2025-03-02 12:27] LABS: Sodium 136 mMol/L (136-145)
--- NOTE | 2025-03-02 15:11 | ESPR_ITS ---
<Statement entered by Prasad Dillard MD - 03/02/25 16:40> Patient was examined and case was reviewed with team including attending physician. Note reviewed, I agree with most of its contents and agree with the patient's care as documented by Dr. Rodriguez Patient seen and evaluated at the bedside. Patient continues to be restrained due to agitation. Patient continues with NG tube for feeds and p.o. meds. Patient continues to be lethargic and cannot tolerate p.o. intake at this time. Amiodarone was transition from drip to p.o. version. Will administer through NG tube. Additionally patient's hypernatremia has resolved thus D5W has been discontinued. Goals of care has been done with the family and patient CODE STATUS changed from full code to limited code no CPR to be done however intubation is okay. In preparation for discharge patient will be transferred to [facility]. Case discussed with my attending Dr. Marion Dillard MD PGY-2 Disclaimer: Despite multiple revisions, due to the dictation software being used, the document bellow may not be free of grammatical errors including phonetic/typographic errors. However, this does not deter from our commitment to providing health care in the patient's best interest in mind. Documentation for date of: 03/02/25 Subjective Subjective Interval history: The patient was seen at the bedside and remains somnolent and lethargic. The patient continues to require soft restraints due to agitation. Due to her altered mental status and inability to stay awake for oral feeds, she is currently NPO. The patient has completed the Amiodarone infusion and has transitioned to the oral route as per cardiology's recommendations. The patient continues to grimace upon palpation of the abdomen. A KUB ordered yesterday revealed a non-obstructive bowel gas pattern with no evidence of free air. Hypernatremia has resolved, and the D5 infusion has been discontinued. Code status was discussed with the patient's today. After a detailed explanation of Full Code, Limited Code, and DNR/DNI options, the expressed a preference to change the patient's status to DNR, with the exception that intubation is still permissible. The also requested that the patient be transferred to [facility] after discharge, as it is where their daughter resides. This was confirmed with social science teacher, and the patient has been accepted. Additionally, the indicated a desire for a PEG tube for feeding should the patient be unable to eat independently in the future. Exam Vital Signs Temp Pulse Resp BP Pulse Ox O2 Del Method O2 Flow Rate 98.2 F 139 H 22 H 127/82 99 Nasal Cannula 1 03/02/25 12:00 03/02/25 12:00 03/02/25 12:00 03/02/25 12:00 03/02/25 12:00 03/02/25 12:00 03/02/25 12:00 FiO2 0 03/02/25 12:00 Narrative Exam Physical Exam General: Frail and thin. Unable to communicate, nonverbal. NG tube in place. HEENT: Normocephalic, atraumatic. Mucous membranes dry. Heart: Regular rate and rhythm, no murmurs. Lungs: Decreased breath sounds. Abdomen: Thin, soft, nondistended, nontender. No guarding or rebound tenderness. Neurologic: Patient unable to complete neuro exam. Extremities: Mild edema. Skin: No rash. Ecchymoses present on bilateral forearms. Objective Labs 03/02/25 02:58 03/02/25 15:29 Labs: Laboratory Results - last 24 hr 03/01/25 03/02/25 03/02/25 23:30 02:58 07:46 WBC 14.2 H RBC 3.88 L Hgb 11.2 L Hct 34.3 L MCV 88 MCH 28.9 MCHC 32.7 RDW Std Deviation 46.9 H Plt Count 232 Neut % (Auto) 93 H Lymph % (Auto) 2 L [place] % (Auto) 4 Eos % (Auto) 1 Baso % (Auto) 0 Neut # (Auto) 13.2 H Lymph # (Auto) 0.3 L [place] # (Auto) 0.5 Eos # (Auto) 0.1 Baso # (Auto) 0.0 Immature Gran # (Auto) 0.10 H Absolute Nucleated RBC 0.00 Immature Gran % 1 H Nucleated RBC % 0 Sodium 142 139 136 Potassium 3.7 Chloride 108 H Carbon Dioxide 20.6 Anion Gap 10 BUN 29 H Creatinine 1.5 H Estim Creat Clear Calc 16.6 L eGFR 34 L BUN/Creatinine Ratio 19 Glucose 165 H D Calculated Osmolality 287 Calcium 8.4 Corrected Calcium 9.4 Phosphorus 1.4 L Magnesium 1.8 Total Bilirubin 0.2 L AST 16 ALT 11 Alkaline Phosphatase 93 D Total Protein 4.9 L Albumin 2.8 L D Globulin 2.1 L Albumin/Globulin Ratio 1.3 03/02/25 11:58 WBC RBC Hgb Hct MCV MCH MCHC RDW Std Deviation Plt Count Neut % (Auto) Lymph % (Auto) [place] % (Auto) Eos % (Auto) Baso % (Auto) Neut # (Auto) Lymph # (Auto) [place] # (Auto) Eos # (Auto) Baso # (Auto) Immature Gran # (Auto) Absolute Nucleated RBC Immature Gran % Nucleated RBC % Sodium 136 Potassium Chloride Carbon Dioxide Anion Gap BUN Creatinine Estim Creat Clear Calc eGFR BUN/Creatinine Ratio Glucose Calculated Osmolality Calcium Corrected Calcium Phosphorus Magnesium Total Bilirubin AST ALT Alkaline Phosphatase Total Protein Albumin Globulin Albumin/Globulin Ratio ABG Interpretation ABG results: 02/27/25 12:29 VBG pH 7.40 VBG pCO2 43 VBG pO2 27 VBG Base Excess 1 Quality Measures Quality Measures none Advance care planning discussed with:: patient and spouse Assessment & Plan Assessment Current Active Medications: Generic Name Dose Route Start Last Admin Trade Name Freq PRN Reason Stop Dose Admin Acetaminophen 650 mg 03/02/25 07:55 Acetaminophen 325 Mg Tablet PO 03/29/25 15:27 Q6H PRN Fever >100.4 Hydrocodone Bitart/Acetaminophen 1 tab 02/27/25 18:40 Hydrocodone/Apap 5/325 Tablet PO 03/04/25 18:39 Q8HR PRN PAIN SCALE 4-10(Mod-Sev Amiodarone HCl 200 mg 03/02/25 09:45 03/02/25 09:47 Amiodarone Hcl 200 Mg Tablet NG 04/01/25 09:44 200 mg BID LORNE Administration Ceftriaxone Sodium/Dextrose 2 gm in 50 mls @ 100 mls/hr 03/01/25 09:00 03/02/25 09:47 Rocephin/D5w 2gm IV 03/07/25 07:43 100 mls/hr QDAY LORNE Administration Potassium Phosphate 15 mmol in 250 mls @ 62.5 mls/hr 03/02/25 08:03 03/02/25 14:36 Pot Phos 15 Mmol In Ns 250 Ml IV 03/02/25 16:02 62.5 mls/hr Q4H LORNE Administration Sodium Chloride 1,000 mls @ 60 mls/hr 03/02/25 10:06 03/02/25 11:38 Ns IV 04/01/25 10:05 60 mls/hr .[id number] LORNE Administration Ondansetron HCl 4 mg 02/27/25 15:28 Ondansetron Inj 2 Mg/Ml Inj 2 Ml IVP 03/29/25 15:27 Q6H PRN NAUSEA OR VOMITING Protocol Sennosides 1 tab 02/27/25 15:28 Senna Tablet PO 03/29/25 15:27 QDAY PRN constipation Protocol Plan 85F with history of colitis, glaucoma, depression, dementia, and, chronic pelvic pain syndrome admitted for acute encephalopathy, found to have paroxysmal atrial flutter, E.coli bacteremia, #Paroxysmal atrial flutter and fibrillation. New-onset atrial flutter/fibrillation Patient converted to sinus rhythm after IV diltiazem 10 mg. CHADS-VASC score estimated at 4. Plan: - Cardiology consulted - appreciate recommendations. - High bleeding and fall risk - anticoagulation deferred for now. - Discontinue diltiazem. - Finished Amiodarone drip, transitioned to PO Amiodarone. - Echo and Doppler study pending to assess LV function, wall motion, and valvular pathology. - Continuous telemetry monitoring. #E. coli bacteremia #Leukocytosis (downtrending) Likely urinary source given urinalysis findings and concurrent UTI. Gram negative suzanne found in both urine and blood cultures. WBCs 22.3 --> 12.3 --> 15.2 --> 14.2 Plan: - Continue Ceftriaxone to 2 g IV daily (organism sensitive). - Monitor CBC daily; trend WBC. #Acute encephalopathy Likely metabolic vs delirium secondary to UTI. Progressive confusion and weakness over the past year (per ), acutely worsened. Initially present with complaint of increased confusion, progressive weakness over the past year per . Initial Na 158. Initial UA WBC 163, Leukocyte positive, 1+ urine bacteria. CT head (02/27): No acute intracranial abnormality. CXR (02/27): No pneumonia or pulmonary edema. Plan: - Aspiration precautions: HOB >30?. - Failed swallow screen. Speech therapy recommend NG feeds. - Keep NPO - Placed NG tube to start free water flushes. - Continue Ceftriaxone to 2 g IV daily. #Hypernatremia (resolved) Goal: Lower the serum sodium by 10mEq/L in 24H. Calculate aldosterone to renin ratio (>20:1 indicate hyperaldosteronism) Plan - Discontinued IV Dextrose 500 mls @ 100 mls/hr IV .Q5H (100 mls/hr) - Monitor for volume overload given age and possible cardiac dysfunction. - Replete electrolyte as needed #Sepsis (UTI Source)/SIRS 2/4 qSOFA score: 1 Initial UA WBC 163, Leukocyte positive, 1+ urine bacteria. Plan: - Sepsis protocol followed: early antibiotics, fluid resuscitation, cultures before antibiotics, vasopressors if indicated. - Continue ceftriaxone 2 g IV daily. - Maintain MAP > 65 mmHg - Velazquez catheter in place for output monitoring; reassess daily for removal. - Monitor vital signs closely. #LU, prerenal BUN/Cr ratio of 31. Dry mucosa on physical exam. Plan: - Continue IV fluids as above, ensuring sodium correction rate limits are respected. - Monitor renal function and urine output. - Plasma aldosterone and renin activity pending; will calculate ratio (>20:1 suggests primary hyperaldosteronism). - Replete electrolytes as needed. - Renal dose med, avoid nephrotoxin #Troponemia - downtrending Initial troponin 0.081, likely from dehydration and LU. Plan: - Peaked at 0.081, repeat troponin 0.060. No need to trend further. Chronic medical problem #History of glaucoma #Dementia Plan: - Resume donepezil 10mg PO QD once mentation imrpove. #Chronic pelvic pain syndrome Plan: - Resume home Bath or provide multimodal pain control Health Maintenance: Dispo: Med[employer] DVT prophylaxis: SCDs GI prophylaxis: Protonix 40 Diet: NPO until mentation improve, then advance diet Lines: Peripheral IV, velazquez catheter Code status: Full code Patient plan of care was discussed with the senior resident, Dr. Linares, and attending physician, Dr. Schultz. Ahmet Rodriguez DO Attending Provider Attestation/Addendum Elle Low DO, attest that I was physically present for the abbott portions of the service and evaluated the patient with the resident and I reviewed and discussed the case with the resident and agree with the resident's findings and plans of care as documented above Patient seen and eval this a.m. She remains very encephalopathic, but much calmer. Patient is very somnolent, but arousable. NG tube remains in place. Amiodarone drip has been discontinued and switched to amiodarone 200 mg via NG tube. Hypernatremia has resolved. Will switch D5 water to isotonic fluids at this time. As patient has not been receiving any nutrition. If patient continues to have NG tube in place, will need tube feedings. Patient's has switched patient's CODE STATUS to limited code with no CPR, but only intubation. KUB had been done yesterday showing nonobstructive bowel gas pattern. Patient appears to have some tenderness to palpation on exam. However, response appears to be very inconsistent due to patient's confusion. Case discussed with speech therapy, patient too somnolent to work with at this time.
--- NOTE | 2025-03-02 15:36 | ESPR_ITS ---
<Statement entered by Mehul Sal MD - 03/07/25 18:15> The patient is evaluated when examined by me patient remains in atrial fibrillation now somewhat faster heart rate does not complain of chest pain shortness of breath hemodynamically stable. Evaluated the patient with his physician still not able to communicate and will discuss with the about patient's condition prognosis. Agree with the treatment and recommendations documented by PGY 1 Dr. Manuel Vincent Documentation for date of: 03/02/25 Subjective Subjective Interval history: Patient continues to be altered, is disoriented to place, and unable to communicate. She remains in A-fib. Blood pressure has improved but still tachycardic with a rate of 139. Will continue amiodarone. Exam Vital Signs Temp Pulse Resp BP Pulse Ox O2 Del Method O2 Flow Rate 98.2 F 139 H 22 H 127/82 99 Nasal Cannula 1 03/02/25 12:00 03/02/25 12:00 03/02/25 12:00 03/02/25 12:00 03/02/25 12:00 03/02/25 12:00 03/02/25 12:00 FiO2 0 03/02/25 12:00 Narrative Exam General: Frail, chronically ill-appearing thin elderly lady. No acute distress Neurologic: Patient is awake but unable to communicate. Disoriented to place. Responds to voice. Incoherent language. HEENT: Normocephalic, atraumatic, mucous membranes moist. Pupils reactive to light. Heart: Tachycardic, irregular rhythm. Lungs: Clear to auscultation bilaterally with no wheezing or crackles. Abdomen: Soft, nondistended, nontender, positive bowel sounds. No guarding or rebound tenderness. Extremities: Mild edema in LE bilaterally. 2+ radial and dorsalis pedis pulses bilaterally. Skin: Warm. Dry. No rash or ecchymoses. Objective Labs 03/03/25 05:17 03/03/25 05:17 Labs: Laboratory Results - last 24 hr 03/01/25 03/02/25 03/02/25 23:30 02:58 07:46 WBC 14.2 H RBC 3.88 L Hgb 11.2 L Hct 34.3 L MCV 88 MCH 28.9 MCHC 32.7 RDW Std Deviation 46.9 H Plt Count 232 Neut % (Auto) 93 H Lymph % (Auto) 2 L [place] % (Auto) 4 Eos % (Auto) 1 Baso % (Auto) 0 Neut # (Auto) 13.2 H Lymph # (Auto) 0.3 L [place] # (Auto) 0.5 Eos # (Auto) 0.1 Baso # (Auto) 0.0 Immature Gran # (Auto) 0.10 H Absolute Nucleated RBC 0.00 Immature Gran % 1 H Nucleated RBC % 0 Sodium 142 139 136 Potassium 3.7 Chloride 108 H Carbon Dioxide 20.6 Anion Gap 10 BUN 29 H Creatinine 1.5 H Estim Creat Clear Calc 16.6 L eGFR 34 L BUN/Creatinine Ratio 19 Glucose 165 H D Calculated Osmolality 287 Calcium 8.4 Corrected Calcium 9.4 Phosphorus 1.4 L Magnesium 1.8 Total Bilirubin 0.2 L AST 16 ALT 11 Alkaline Phosphatase 93 D Total Protein 4.9 L Albumin 2.8 L D Globulin 2.1 L Albumin/Globulin Ratio 1.3 03/02/25 11:58 WBC RBC Hgb Hct MCV MCH MCHC RDW Std Deviation Plt Count Neut % (Auto) Lymph % (Auto) [place] % (Auto) Eos % (Auto) Baso % (Auto) Neut # (Auto) Lymph # (Auto) [place] # (Auto) Eos # (Auto) Baso # (Auto) Immature Gran # (Auto) Absolute Nucleated RBC Immature Gran % Nucleated RBC % Sodium 136 Potassium Chloride Carbon Dioxide Anion Gap BUN Creatinine Estim Creat Clear Calc eGFR BUN/Creatinine Ratio Glucose Calculated Osmolality Calcium Corrected Calcium Phosphorus Magnesium Total Bilirubin AST ALT Alkaline Phosphatase Total Protein Albumin Globulin Albumin/Globulin Ratio ABG Interpretation ABG results: 02/27/25 12:29 VBG pH 7.40 VBG pCO2 43 VBG pO2 27 VBG Base Excess 1 Quality Measures Quality Measures none Advance care planning discussed with:: spouse Assessment & Plan Assessment Current Active Medications: Generic Name Dose Route Start Last Admin Trade Name Freq PRN Reason Stop Dose Admin Acetaminophen 650 mg 03/02/25 07:55 Acetaminophen 325 Mg Tablet PO 03/29/25 15:27 Q6H PRN Fever >100.4 Hydrocodone Bitart/Acetaminophen 1 tab 02/27/25 18:40 Hydrocodone/Apap 5/325 Tablet PO 03/04/25 18:39 Q8HR PRN PAIN SCALE 4-10(Mod-Sev Amiodarone HCl 200 mg 03/02/25 09:45 03/02/25 09:47 Amiodarone Hcl 200 Mg Tablet NG 04/01/25 09:44 200 mg BID LORNE Administration Ceftriaxone Sodium/Dextrose 2 gm in 50 mls @ 100 mls/hr 03/01/25 09:00 03/02/25 09:47 Rocephin/D5w 2gm IV 03/07/25 07:43 100 mls/hr QDAY LORNE Administration Potassium Phosphate 15 mmol in 250 mls @ 62.5 mls/hr 03/02/25 08:03 03/02/25 14:36 Pot Phos 15 Mmol In Ns 250 Ml IV 03/02/25 16:02 62.5 mls/hr Q4H LORNE Administration Sodium Chloride 1,000 mls @ 60 mls/hr 03/02/25 10:06 03/02/25 11:38 Ns IV 04/01/25 10:05 60 mls/hr .[id number] LORNE Administration Ondansetron HCl 4 mg 02/27/25 15:28 Ondansetron Inj 2 Mg/Ml Inj 2 Ml IVP 03/29/25 15:27 Q6H PRN NAUSEA OR VOMITING Protocol Sennosides 1 tab 02/27/25 15:28 Senna Tablet PO 03/29/25 15:27 QDAY PRN constipation Protocol Plan The patient is an 85-year-old female with past medical history of chronic hypotension requiring midodrine in the past and dementia, which has progressed significantly over the last several years. She was brought to the hospital with altered mental status by her , who is unable to take care of her. While she was in the hospital, she suddenly developed an episode of atrial flutter/fibrillation with rapid heart rate of 150 beats per minute and was transferred to the ICU telemetry or floor for management. EKG showed evidence of atrial flutter with rapid ventricular response of 150 beats per minute. #Paroxysmal atrial flutter and fibrillation. #Severe dementia and anxiety. #Altered mental status. #History of chronic hypotension, now patient is normotensive. #Failure to thrive. -CHADS-VASc score appears to be about 4, but her risk of stroke is only 3%, but risk of bleeding and falls is very high and so I decided not to recommend anticoagulation at this point as the risk/benefit does not favor -Patient is still not in sinus rhythm, continues to be in A-fib -Heart rate 139 though normotensive on 03/02/2025 -Mentation is slightly improved from yesterday, patient responds to voice and produced some incoherent utterances Plan: - Continue amiodarone drip to maintain sinus rhythm - Echo and Doppler study for assessment of LV function and left ventricular wall motion. - Potassium goal 4 mMol/L #Gram-negative suzanne bacteremia #Leukocytosis #Acute encephalopathy #Hypernatremia #Sepsis #LU #Troponin EMEA #History of glaucoma #Chronic pelvic pain syndrome The rest of the patient's hospital problems will be managed per the primary team. Patient was seen and discussed with my attending physician Dr. Sal. Manuel Vincent DO PGY-1.
[2025-03-02 16:09] LABS: Sodium 139 mMol/L (136-145)
[2025-03-02 20:04] LABS: Sodium 139 mMol/L (136-145)
[2025-03-03] VITALS (9 sets, daily range): BP systolic 118–149; BP diastolic 49–93; PULSE 65–100; RESP 16–100; TEMP 36.1–36.4; O2SAT 98–100
[2025-03-03] MEDS: SODIUM CHLORIDE 0.9% 1000 ML 1,000 ML 60 ML IV (05:10)
[2025-03-03 06:38] LABS: Basophils # (Auto) 0.0 Thou/mm3 (0.0-0.2); Basophils % (Auto) 0 % (0-2.5); Eosinophils # (Auto) 0.1 Thou/mm3 (0.0-0.5); Eosinophils % (Auto) 1 % (0-10); Hematocrit 35.1 % (36.0-46.0); Hemoglobin 11.7 g/dL (12.0-16.0); Immature Granulocytes Auto 0.09 Thou/mm3 (0.00-0.00); Lymphocytes # (Auto) 0.3 Thou/mm3 (1.0-4.8); Lymphocytes % (Auto) 2 % (10-50); Mean Corpuscular HGB Conc 33.3 g/dl (31.0-37.0); Mean Corpuscular Hemoglobin 28.8 pg (25.0-35.0); Mean Corpuscular Volume 87 fL (80-100); Monocytes # (Auto) 0.4 Thou/mm3 (0.0-0.8); Monocytes % (Auto) 4 % (0-12); Neutrophils # (Auto) 11.5 Thou/mm3 (1.8-7.7); Neutrophils % (Auto) 93 % (37-80); Nucleated Red Blood Cell # 0.00 Thou/mm3 (0.00-0.00); Nucleated Red Blood Cell % 0 /100 WBC (0); Platelet Count 235 Thou/mm3 (140-440); RDW Standard Deviation 46.3 fL (36.4-46.3); Red Blood Count 4.06 Miln/mm3 (4.00-5.20); White Blood Count 12.4 Thou/mm3 (3.6-11.0)
[2025-03-03 07:08] LABS: Alanine Aminotransferase 16 U/L (10-49); Albumin, Serum 3.1 gm/dL (3.4-4.8); Albumin/Globulin Ratio 1.4 (1.2-2.2); Alkaline Phosphatase 101 U/L (46-116); Anion Gap 11 (7-16); Aspartate Amino Transferase 19 U/L (0-34); BUN/Creatinine Ratio 18 Ratio (12-20); Bilirubin,Total 0.4 mg/dL (0.3-1.2); Blood Urea Nitrogen 21 mg/dL (9-23); Calcium 8.5 mg/dL (8.3-10.6); Calcium (Corrected) 9.2 mg/dL (8.5-10.1); Carbon Dioxide 22.3 mMol/L (20.0-31.0); Chloride 110 mMol/L (98-107); Creatinine (Component) 1.2 mg/dL (0.6-1.3); Estimated Creatinine Clearance 20.8 mL/min (>60); Globulin 2.2 gm/dL (2.3-3.5); Glucose 63 mg/dL (74-106); Magnesium 1.7 mg/dL (1.6-2.6); Osmolality,Calculated 285 (275-295); Phosphorous 2.9 mg/dL (2.4-5.1); Potassium 4.0 mMol/L (3.4-5.1); Sodium 143 mMol/L (136-145); Total Protein 5.3 gm/dL (5.7-8.2); eGFR 45 See Note
[2025-03-03] MEDS: DEXTROSE 50%-WATER INJ 50 ML SYRINGE IVP ×2 (08:15→21:07)
[2025-03-03] MEDS: AMIODARONE HCL 200 MG TABLET NG ×2 (08:22→21:56)
[2025-03-03] MEDS: cefTRIAXone/D5w 2gm 2 GM/50 ML BAG IV (08:22)
[2025-03-03] MEDS: Magnesium Sulfate 4 GM Ivpb 4 GM/50 ML BAG IV (10:28)
--- NOTE | 2025-03-03 13:10 | ESPR_ITS ---
<Statement entered by Prasad Dillard MD - 03/04/25 09:07> Patient was examined and case was reviewed with team including attending physician. Note reviewed, I agree with most of its contents and agree with the patient's care. Patient seen today at the bedside. No overnight events reported. Vital signs stable at this time. NGT feeds started will monitor for toleration. Amiodarone switched to PO route at thsi time through NGT. Patient has very severe dementia unable to make decisions for herself. Likely will require GOC discussion at some point. Will continue to follow at this time. Prasad Dillard MD PGY-2 Documentation for date of: 03/03/25 Subjective Subjective Interval history: Patient was evaluated at the bedside this morning. She remains encephalopathic?somnolent but arousable. The NG tube remains in place, and tube feeds are planned to begin today. Per nursing staff, prior to initiating feeds, it was noted that the NG tube had moved out of positioned at 30 cm. The nurse advanced the tube to 65 cm, and a post-placement abdominal X-ray was ordered to confirm positioning. Exam Vital Signs Temp Pulse Resp BP Pulse Ox O2 Del Method O2 Flow Rate 97.6 F 82 21 H 124/49 L 100 Room Air 1 03/03/25 12:00 03/03/25 12:00 03/03/25 12:00 03/03/25 12:00 03/03/25 12:00 03/03/25 12:00 03/03/25 00:00 FiO2 0 03/02/25 12:00 Narrative Exam Physical Exam General: Frail and thin. Unable to communicate, nonverbal. NG tube in place. HEENT: Normocephalic, atraumatic. Mucous membranes dry. Heart: Regular rate and rhythm, no murmurs. Lungs: Decreased breath sounds. Abdomen: Thin, soft, nondistended, nontender. No guarding or rebound tenderness. Neurologic: Patient unable to complete neuro exam. Extremities: Mild edema. Skin: No rash. Ecchymoses present on bilateral forearms. Objective Labs 03/04/25 04:40 03/04/25 04:40 Labs: Laboratory Results - last 24 hr 03/02/25 03/02/25 03/03/25 15:29 19:40 05:17 WBC 12.4 H RBC 4.06 Hgb 11.7 L Hct 35.1 L MCV 87 MCH 28.8 MCHC 33.3 RDW Std Deviation 46.3 Plt Count 235 Neut % (Auto) 93 H Lymph % (Auto) 2 L [place] % (Auto) 4 Eos % (Auto) 1 Baso % (Auto) 0 Neut # (Auto) 11.5 H Lymph # (Auto) 0.3 L [place] # (Auto) 0.4 Eos # (Auto) 0.1 Baso # (Auto) 0.0 Immature Gran # (Auto) 0.09 H Absolute Nucleated RBC 0.00 Immature Gran % 1 H Nucleated RBC % 0 Sodium 139 139 143 Potassium 4.0 Chloride 110 H Carbon Dioxide 22.3 Anion Gap 11 BUN 21 Creatinine 1.2 Estim Creat Clear Calc 20.8 L eGFR 45 L BUN/Creatinine Ratio 18 Glucose 63 L D Calculated Osmolality 285 Calcium 8.5 Corrected Calcium 9.2 Phosphorus 2.9 Magnesium 1.7 Total Bilirubin 0.4 AST 19 ALT 16 Alkaline Phosphatase 101 Total Protein 5.3 L Albumin 3.1 L Globulin 2.2 L Albumin/Globulin Ratio 1.4 ABG Interpretation ABG results: 02/27/25 12:29 VBG pH 7.40 VBG pCO2 43 VBG pO2 27 VBG Base Excess 1 Quality Measures Quality Measures none Advance care planning discussed with:: spouse Assessment & Plan Assessment Current Active Medications: Generic Name Dose Route Start Last Admin Trade Name Freq PRN Reason Stop Dose Admin Acetaminophen 650 mg 03/02/25 07:55 Acetaminophen 325 Mg Tablet PO 03/29/25 15:27 Q6H PRN Fever >100.4 Hydrocodone Bitart/Acetaminophen 1 tab 02/27/25 18:40 Hydrocodone/Apap 5/325 Tablet PO 03/04/25 18:39 Q8HR PRN PAIN SCALE 4-10(Mod-Sev Amiodarone HCl 200 mg 03/02/25 09:45 03/03/25 08:22 Amiodarone Hcl 200 Mg Tablet NG 04/01/25 09:44 200 mg BID LORNE Administration Ceftriaxone Sodium/Dextrose 2 gm in 50 mls @ 100 mls/hr 03/01/25 09:00 03/03/25 08:52 Rocephin/D5w 2gm IV 03/07/25 07:43 Infused QDAY LORNE Infusion Sodium Chloride 1,000 mls @ 60 mls/hr 03/02/25 10:06 03/03/25 05:10 Ns IV 04/01/25 10:05 60 mls/hr .[id number] LORNE Administration Magnesium Sulfate 4 gm in 50 mls @ 12.5 mls/hr 03/03/25 09:13 03/03/25 10:28 Magnesium Sulfate Ivpb IV 03/03/25 13:12 12.5 mls/hr X1 ONE Administration Ondansetron HCl 4 mg 02/27/25 15:28 Ondansetron Inj 2 Mg/Ml Inj 2 Ml IVP 03/29/25 15:27 Q6H PRN NAUSEA OR VOMITING Protocol Sennosides 1 tab 02/27/25 15:28 Senna Tablet PO 03/29/25 15:27 QDAY PRN constipation Protocol Plan 85 year-old female with history of colitis, glaucoma, depression, dementia, and, chronic pelvic pain syndrome admitted for acute encephalopathy, found to have paroxysmal atrial flutter, E.coli bacteremia, and hypernatremia. #Paroxysmal atrial flutter and fibrillation. New-onset atrial flutter/fibrillation Patient converted to sinus rhythm after IV diltiazem 10 mg. CHADS-VASC score estimated at 4. Plan: - Cardiology consulted - appreciate recommendations. - High bleeding and fall risk - anticoagulation deferred for now. - Discontinue diltiazem. - Finished Amiodarone drip, transitioned to PO Amiodarone 200 mg via NG tube. - Echo and Doppler study pending to assess LV function, wall motion, and valvular pathology. - Continuous telemetry monitoring. #E. coli bacteremia #Leukocytosis (downtrending) Likely urinary source given urinalysis findings and concurrent UTI. Gram negative suzanne found in both urine and blood cultures. WBCs 22.3 --> 12.3 --> 15.2 --> 14.2 Plan: - Continue Ceftriaxone to 2 g IV daily (organism sensitive) (03/01-) - Monitor CBC daily; trend WBC. #Acute encephalopathy Likely metabolic vs delirium secondary to UTI. Progressive confusion and weakness over the past year (per ), acutely worsened. Initially present with complaint of increased confusion, progressive weakness over the past year per . Initial Na 158. Initial UA WBC 163, Leukocyte positive, 1+ urine bacteria. CT head (02/27): No acute intracranial abnormality. CXR (02/27): No pneumonia or pulmonary edema. Plan: - Aspiration precautions: HOB >30?. - Failed swallow screen. Speech therapy recommend NG feeds. - Keep NPO. - Placed NG tube to start free water flushes. - Continue Ceftriaxone to 2 g IV daily. - Start NG tube feeds (03/03) - Monitor for refeeding syndrome. - Continue thiamine 100mg/day for days and multivitamins per sewer head. #Hypernatremia (resolved) Goal: Lower the serum sodium by 10mEq/L in 24H. Calculate aldosterone to renin ratio (>20:1 indicate hyperaldosteronism) Plan - Discontinued D5. - Monitor for volume overload given age and possible cardiac dysfunction. - Replete electrolyte as needed #Sepsis (UTI Source)/SIRS 2/4 qSOFA score: 1 Initial UA WBC 163, Leukocyte positive, 1+ urine bacteria. Plan: - Sepsis protocol followed: early antibiotics, fluid resuscitation, cultures before antibiotics, vasopressors if indicated. - Continue ceftriaxone 2 g IV daily. - Maintain MAP > 65 mmHg. - Velazquez catheter in place for output monitoring; reassess daily for removal. - Monitor vital signs closely. #LU, prerenal BUN/Cr ratio of 31. Dry mucosa on physical exam. Plan: - Continue IV fluids as above, ensuring sodium correction rate limits are respected. - Monitor renal function and urine output. - Plasma aldosterone and renin activity pending; will calculate ratio (>20:1 suggests primary hyperaldosteronism). - Replete electrolytes as needed. - Renal dose med, avoid nephrotoxin. #Troponemia - downtrending Initial troponin 0.081, likely from dehydration and LU. Plan: - Peaked at 0.081, repeat troponin 0.060. No need to trend further. Chronic medical problem #History of glaucoma #Dementia Plan: - Resume donepezil 10mg PO QD once mentation imrpove. #Chronic pelvic pain syndrome Plan: - Resume home [place] or provide multimodal pain control Health Maintenance: Dispo: [facility] DVT prophylaxis: SCDs GI prophylaxis: Protonix 40 Diet: NG tube feeds Lines: Peripheral IV, velazquez catheter Code status: Limited Code Patient plan of care was discussed with the senior resident, Dr. Linares, and attending physician, Dr. Shaw. Ahmet Rodriguez DO Attending Provider Attestation/Addendum I have examined the patient, reviewed labs and imaging findings, discussed the case with the resident(s), and reviewed entered orders. I agree with the plan of care as outlined in this note, with these additional summaries/recommendations: Patient seen at bedside. No acute overnight events. Patient remains severely encephalopathic this morning with bilateral wrist restraints. Patient likely has acute on chronic encephalopathy given history. Acute encephalopathy most likely secondary to metabolic and infectious etiologies +/- delirium at this point. Metabolic etiologies including sodium have been corrected. Patient remains on IV Rocephin for E. coli urinary tract infection and bacteremia. Leukocytosis improving. Patient has NG tube in place and consult dietary to start tube feeds and free water flushes. Patient has hypoglycemia this morning and given D50. Patient also diagnosed with paroxysmal atrial fibrillation and not a candidate for anticoagulation at this time given her fall risk and agitation. Continue amiodarone 200 mg p.o. twice daily. Patient is limited code and prognosis is guarded at this time. We will follow-up with patient's for additional goals of care. Please see residents note for additional details and management. Dr. Colin MD
--- NOTE | 2025-03-03 14:16 | PC.SS ---
SS follow up note; NG Tube feeds, possible Peg-tube. Patient will discharge back t [facility] when medically cleared.
[2025-03-03] MEDS: MULTIVITAMINS TABLET 1 TAB PO ×2 (17:51→22:55)
[2025-03-03] MEDS: THIAMINE 100 MG TABLET PO (17:51)
--- NOTE | 2025-03-03 18:15 | XR_ITS ---
Examination: AP chest single view TECHNIQUE: AP portable supine chest single view Date and time: March 03, 2025 1855 hours, comparison March 01, 2025 INDICATIONS: Reposition orogastric tube. FINDINGS: Orogastric tube tip distal stomach Mild prominence of ventricle and Mild vascular congestion Calcification aortic arch IMPRESSION: Orogastric tube tip distal stomach
--- NOTE | 2025-03-03 20:50 | ESPR_ITS ---
<Statement entered by Mehul Sal MD - 03/07/25 18:16> Patient appears to be back in sinus rhythm clinically doing better but still altered mental status none communicative. Aware of the patient with resident physician Dr. Manuel Vincent agree with the treatment plan recommendation as documented. Documentation for date of: 03/03/25 Subjective Subjective Interval history: No overnight events. The patient continues to be altered. Blood pressure is improved, heart rate improved. Will continue current cardiac management to maintain sinus rhythm. Exam Vital Signs Temp Pulse Resp BP Pulse Ox O2 Del Method O2 Flow Rate 97.4 F 65 17 118/56 L 98 Room Air 1 03/03/25 16:00 03/03/25 16:00 03/03/25 16:00 03/03/25 16:00 03/03/25 16:00 03/03/25 16:00 03/03/25 00:00 FiO2 0 03/02/25 12:00 Narrative Exam General: Frail, chronically ill-appearing thin elderly lady. No acute distress Neurologic: Patient is awake but unable to communicate. HEENT: Normocephalic, atraumatic, mucous membranes moist. Pupils reactive to light. Heart: Regular rate and irregular rhythm. Lungs: Clear to auscultation bilaterally with no wheezing or crackles. Abdomen: Soft, nondistended, nontender, positive bowel sounds. No guarding or rebound tenderness. Extremities: Mild edema in LE bilaterally. 2+ radial and dorsalis pedis pulses bilaterally. Skin: Warm. Dry. No rash or ecchymoses. Objective Labs 03/03/25 05:17 03/03/25 05:17 Labs: Laboratory Results - last 24 hr 03/03/25 05:17 WBC 12.4 H RBC 4.06 Hgb 11.7 L Hct 35.1 L MCV 87 MCH 28.8 MCHC 33.3 RDW Std Deviation 46.3 Plt Count 235 Neut % (Auto) 93 H Lymph % (Auto) 2 L [place] % (Auto) 4 Eos % (Auto) 1 Baso % (Auto) 0 Neut # (Auto) 11.5 H Lymph # (Auto) 0.3 L [place] # (Auto) 0.4 Eos # (Auto) 0.1 Baso # (Auto) 0.0 Immature Gran # (Auto) 0.09 H Absolute Nucleated RBC 0.00 Immature Gran % 1 H Nucleated RBC % 0 Sodium 143 Potassium 4.0 Chloride 110 H Carbon Dioxide 22.3 Anion Gap 11 BUN 21 Creatinine 1.2 Estim Creat Clear Calc 20.8 L eGFR 45 L BUN/Creatinine Ratio 18 Glucose 63 L D Calculated Osmolality 285 Calcium 8.5 Corrected Calcium 9.2 Phosphorus 2.9 Magnesium 1.7 Total Bilirubin 0.4 AST 19 ALT 16 Alkaline Phosphatase 101 Total Protein 5.3 L Albumin 3.1 L Globulin 2.2 L Albumin/Globulin Ratio 1.4 ABG Interpretation ABG results: 02/27/25 12:29 VBG pH 7.40 VBG pCO2 43 VBG pO2 27 VBG Base Excess 1 Quality Measures Quality Measures none Advance care planning discussed with:: spouse Assessment & Plan Assessment Current Active Medications: Generic Name Dose Route Start Last Admin Trade Name Freq PRN Reason Stop Dose Admin Acetaminophen 650 mg 03/02/25 07:55 Acetaminophen 325 Mg Tablet PO 03/29/25 15:27 Q6H PRN Fever >100.4 Hydrocodone Bitart/Acetaminophen 1 tab 02/27/25 18:40 Hydrocodone/Apap 5/325 Tablet PO 03/04/25 18:39 Q8HR PRN PAIN SCALE 4-10(Mod-Sev Amiodarone HCl 200 mg 03/02/25 09:45 03/03/25 08:22 Amiodarone Hcl 200 Mg Tablet NG 04/01/25 09:44 200 mg BID LORNE Administration Ceftriaxone Sodium/Dextrose 2 gm in 50 mls @ 100 mls/hr 03/01/25 09:00 03/03/25 08:52 Rocephin/D5w 2gm IV 03/07/25 07:43 Infused QDAY LORNE Infusion Sodium Chloride 1,000 mls @ 60 mls/hr 03/02/25 10:06 03/03/25 05:10 Ns IV 04/01/25 10:05 60 mls/hr .[id number] LORNE Administration Multivitamins 1 tab 03/03/25 17:15 03/03/25 17:51 Multivitamins Tablet PO 04/02/25 17:14 1 tab QDAY LORNE Administration Ondansetron HCl 4 mg 02/27/25 15:28 Ondansetron Inj 2 Mg/Ml Inj 2 Ml IVP 03/29/25 15:27 Q6H PRN NAUSEA OR VOMITING Protocol Sennosides 1 tab 02/27/25 15:28 Senna Tablet PO 03/29/25 15:27 QDAY PRN constipation Protocol Thiamine HCl 100 mg 03/03/25 17:15 03/03/25 17:51 Thiamine 100 Mg Tablet PO 03/10/25 17:14 100 mg QDAY LORNE Administration Plan The patient is an 85-year-old female with past medical history of chronic hypotension requiring midodrine in the past and dementia, which has progressed significantly over the last several years. She was brought to the hospital with altered mental status by her , who is unable to take care of her. While she was in the hospital, she suddenly developed an episode of atrial flutter/fibrillation with rapid heart rate of 150 beats per minute and was transferred to the ICU telemetry or floor for management. EKG showed evidence of atrial flutter with rapid ventricular response of 150 beats per minute. #Paroxysmal atrial flutter and fibrillation. #Severe dementia and anxiety. #Altered mental status. #History of chronic hypotension, now patient is normotensive. #Failure to thrive. -CHADS-VASc score appears to be about 4, but her risk of stroke is only 3%, but risk of bleeding and falls is very high and so I decided not to recommend anticoagulation at this point as the risk/benefit does not favor - Patient's heart rate and blood pressure have trended towards normal Plan: - Continue amiodarone drip to maintain sinus rhythm - Echo and Doppler study for assessment of LV function and left ventricular wall motion. #Gram-negative suzanne bacteremia #Leukocytosis #Acute encephalopathy #Hypernatremia #Sepsis #LU #Troponin EMEA #History of glaucoma #Chronic pelvic pain syndrome The rest of the patient's hospital problems will be managed per the primary team. Patient was seen and discussed with my attending physician Dr. Sal. Manuel Vincent DO PGY-1.
[2025-03-03] MEDS: THIAMINE 100 MG TABLET NG (22:55)
[2025-03-04] VITALS (11 sets, daily range): BP systolic 115–144; BP diastolic 66–94; PULSE 77–113; RESP 16–98; TEMP 36.1–36.8; O2SAT 97–99; BMI 14.2
[2025-03-04 05:34] LABS: Basophils # (Auto) 0.0 Thou/mm3 (0.0-0.2); Basophils % (Auto) 0 % (0-2.5); Eosinophils # (Auto) 0.1 Thou/mm3 (0.0-0.5); Eosinophils % (Auto) 1 % (0-10); Hematocrit 36.2 % (36.0-46.0); Hemoglobin 12.3 g/dL (12.0-16.0); Immature Granulocytes Auto 0.14 Thou/mm3 (0.00-0.00); Lymphocytes # (Auto) 0.4 Thou/mm3 (1.0-4.8); Lymphocytes % (Auto) 3 % (10-50); Mean Corpuscular HGB Conc 34.0 g/dl (31.0-37.0); Mean Corpuscular Hemoglobin 29.4 pg (25.0-35.0); Mean Corpuscular Volume 87 fL (80-100); Monocytes # (Auto) 0.6 Thou/mm3 (0.0-0.8); Monocytes % (Auto) 4 % (0-12); Neutrophils # (Auto) 14.1 Thou/mm3 (1.8-7.7); Neutrophils % (Auto) 92 % (37-80); Nucleated Red Blood Cell # 0.00 Thou/mm3 (0.00-0.00); Nucleated Red Blood Cell % 0 /100 WBC (0); Platelet Count 284 Thou/mm3 (140-440); RDW Standard Deviation 46.0 fL (36.4-46.3); Red Blood Count 4.18 Miln/mm3 (4.00-5.20); White Blood Count 15.3 Thou/mm3 (3.6-11.0)
[2025-03-04 06:32] LABS: Alanine Aminotransferase 17 U/L (10-49); Albumin, Serum 3.4 gm/dL (3.4-4.8); Albumin/Globulin Ratio 1.4 (1.2-2.2); Alkaline Phosphatase 124 U/L (46-116); Anion Gap 13 (7-16); Aspartate Amino Transferase 30 U/L (0-34); BUN/Creatinine Ratio 10 Ratio (12-20); Bilirubin,Total 0.5 mg/dL (0.3-1.2); Blood Urea Nitrogen 11 mg/dL (9-23); Calcium 8.7 mg/dL (8.3-10.6); Calcium (Corrected) 9.2 mg/dL (8.5-10.1); Carbon Dioxide 20.5 mMol/L (20.0-31.0); Chloride 110 mMol/L (98-107); Creatinine (Component) 1.1 mg/dL (0.6-1.3); Estimated Creatinine Clearance 22.7 mL/min (>60); Globulin 2.4 gm/dL (2.3-3.5); Glucose 88 mg/dL (74-106); Magnesium 2.7 mg/dL (1.6-2.6); Osmolality,Calculated 283 (275-295); Phosphorous 2.0 mg/dL (2.4-5.1); Potassium 4.0 mMol/L (3.4-5.1); Sodium 143 mMol/L (136-145); Total Protein 5.8 gm/dL (5.7-8.2); eGFR 50 See Note
[2025-03-04] MEDS: AMIODARONE HCL 200 MG TABLET NG ×2 (08:25→21:23)
[2025-03-04] MEDS: cefTRIAXone/D5w 2gm 2 GM/50 ML BAG IV (08:25)
[2025-03-04] MEDS: MULTIVITAMINS TABLET 1 TAB PO (08:25)
[2025-03-04] MEDS: THIAMINE 100 MG TABLET PO (08:25)
[2025-03-04] MEDS: NAPH,KPH MBDB 1 PACKET (1.5 GM) PO (08:29)
--- NOTE | 2025-03-04 10:28 | ESPR_ITS ---
<Statement entered by Prasad Dillard MD - 03/05/25 06:52> Patient was examined and case was reviewed with team including attending physician. Note reviewed, I agree with most of its contents and agree with the patient's care as documented by Dr. Michael Dillard MD PGY-2 Documentation for date of: 03/04/25 Subjective Subjective Interval history: Patient seen at bedside. No acute overnight events. She remains encephalopathic but appears slightly improved. Speech remains largely incomprehensible. She was able to follow some instructions per speech therapist today. Bilateral wrist restraints will be maintained at this time, with ongoing reassessment for removal. NG tube feeding with free water flushes will be continued. Defer PEG tube placement for now. Exam Vital Signs Temp Pulse Resp BP Pulse Ox O2 Del Method O2 Flow Rate 97.6 F 83 21 H 144/66 H 99 Room Air 1 03/04/25 08:00 03/04/25 08:25 03/04/25 08:00 03/04/25 08:25 03/04/25 08:00 03/04/25 08:00 03/03/25 00:00 FiO2 0 03/02/25 12:00 Narrative Exam Physical Exam General: Frail and thin. NG tube in place. HEENT: Normocephalic, atraumatic. Mucous membranes dry. Heart: Regular rate and rhythm, no murmurs. Lungs: Decreased breath sounds. Abdomen: Thin, soft, nondistended, nontender. No guarding or rebound tenderness. Neurologic: Patient unable to complete neuro exam. Extremities: Mild edema. Skin: No rash. Ecchymoses present on bilateral forearms. Objective Labs 03/04/25 04:40 03/04/25 04:40 Labs: Laboratory Results - last 24 hr 03/04/25 04:40 WBC 15.3 H RBC 4.18 Hgb 12.3 Hct 36.2 MCV 87 MCH 29.4 MCHC 34.0 RDW Std Deviation 46.0 Plt Count 284 D Neut % (Auto) 92 H Lymph % (Auto) 3 L [place] % (Auto) 4 Eos % (Auto) 1 Baso % (Auto) 0 Neut # (Auto) 14.1 H Lymph # (Auto) 0.4 L [place] # (Auto) 0.6 Eos # (Auto) 0.1 Baso # (Auto) 0.0 Immature Gran # (Auto) 0.14 H Absolute Nucleated RBC 0.00 Immature Gran % 1 H Nucleated RBC % 0 Sodium 143 Potassium 4.0 Chloride 110 H Carbon Dioxide 20.5 Anion Gap 13 BUN 11 Creatinine 1.1 Estim Creat Clear Calc 22.7 L eGFR 50 L BUN/Creatinine Ratio 10 L Glucose 88 Calculated Osmolality 283 Calcium 8.7 Corrected Calcium 9.2 Phosphorus 2.0 L Magnesium 2.7 H Total Bilirubin 0.5 AST 30 ALT 17 Alkaline Phosphatase 124 H D Total Protein 5.8 Albumin 3.4 Globulin 2.4 Albumin/Globulin Ratio 1.4 ABG Interpretation ABG results: 02/27/25 12:29 VBG pH 7.40 VBG pCO2 43 VBG pO2 27 VBG Base Excess 1 Quality Measures Quality Measures none Advance care planning discussed with:: spouse Assessment & Plan Assessment Current Active Medications: Generic Name Dose Route Start Last Admin Trade Name Freq PRN Reason Stop Dose Admin Acetaminophen 650 mg 03/02/25 07:55 Acetaminophen 325 Mg Tablet PO 03/29/25 15:27 Q6H PRN Fever >100.4 Hydrocodone Bitart/Acetaminophen 1 tab 02/27/25 18:40 Hydrocodone/Apap 5/325 Tablet PO 03/04/25 18:39 Q8HR PRN PAIN SCALE 4-10(Mod-Sev Amiodarone HCl 200 mg 03/02/25 09:45 03/04/25 08:25 Amiodarone Hcl 200 Mg Tablet NG 04/01/25 09:44 200 mg BID LORNE Administration Ceftriaxone Sodium/Dextrose 2 gm in 50 mls @ 100 mls/hr 03/01/25 09:00 03/04/25 08:25 Rocephin/D5w 2gm IV 03/07/25 07:43 100 mls/hr QDAY LORNE Administration Sodium Chloride 1,000 mls @ 60 mls/hr 03/02/25 10:06 03/03/25 22:11 Ns IV 04/01/25 10:05 Not Given .[id number] LORNE Multivitamins 1 tab 03/03/25 17:15 03/04/25 08:25 Multivitamins Tablet PO 04/02/25 17:14 1 tab QDAY LORNE Administration Ondansetron HCl 4 mg 02/27/25 15:28 Ondansetron Inj 2 Mg/Ml Inj 2 Ml IVP 03/29/25 15:27 Q6H PRN NAUSEA OR VOMITING Protocol Sennosides 1 tab 02/27/25 15:28 Senna Tablet PO 03/29/25 15:27 QDAY PRN constipation Protocol Thiamine HCl 100 mg 03/03/25 17:15 03/04/25 08:25 Thiamine 100 Mg Tablet PO 03/10/25 17:14 100 mg QDAY LORNE Administration Plan 85 year-old female with history of colitis, glaucoma, depression, dementia, and, chronic pelvic pain syndrome admitted for acute encephalopathy, found to have paroxysmal atrial flutter, E.coli bacteremia, and hypernatremia. #Paroxysmal atrial flutter and fibrillation. New-onset atrial flutter/fibrillation Patient converted to sinus rhythm after IV diltiazem 10 mg. CHADS-VASC score estimated at 4. Plan: - Cardiology consulted - appreciate recommendations. - High bleeding and fall risk - anticoagulation deferred for now. - Discontinue diltiazem. - Finished Amiodarone drip, transitioned to PO Amiodarone 200 mg via NG tube. - Echo and Doppler study pending to assess LV function, wall motion, and valvular pathology. - Continuous telemetry monitoring. #E. coli bacteremia #Leukocytosis Likely urinary source given urinalysis findings and concurrent UTI. Gram negative suzanne found in both urine and blood cultures. Plan: - Continue Ceftriaxone to 2 g IV daily (organism sensitive) (03/01-) - Monitor CBC daily; trend WBC. #Acute encephalopathy Likely metabolic vs delirium secondary to UTI. Progressive confusion and weakness over the past year (per ), acutely worsened. Initially present with complaint of increased confusion, progressive weakness over the past year per . Initial Na 158. Initial UA WBC 163, Leukocyte positive, 1+ urine bacteria. CT head (02/27): No acute intracranial abnormality. CXR (02/27): No pneumonia or pulmonary edema. Plan: - Aspiration precautions: HOB >30?. - Failed swallow screen. Speech therapy recommend NG feeds. - Keep NPO. - Continue NG tube with tube feeds and free water flushes. - Continue Ceftriaxone to 2 g IV daily. - Start NG tube feeds (03/03) - Monitor for refeeding syndrome. - Continue thiamine 100mg/day for days and multivitamins per locator specialist. #Hypernatremia (resolved) Goal: Lower the serum sodium by 10mEq/L in 24H. Calculate aldosterone to renin ratio (>20:1 indicate hyperaldosteronism) Plan - Discontinued D5. - Monitor for volume overload given age and possible cardiac dysfunction. - Replete electrolyte as needed #Sepsis (UTI Source)/SIRS 2/4 qSOFA score: 1 Initial UA WBC 163, Leukocyte positive, 1+ urine bacteria. Plan: - Sepsis protocol followed: early antibiotics, fluid resuscitation, cultures before antibiotics, vasopressors if indicated. - Continue ceftriaxone 2 g IV daily. - Maintain MAP > 65 mmHg. - Velazquez catheter in place for output monitoring; reassess daily for removal. - Monitor vital signs closely. #LU, prerenal BUN/Cr ratio of 31. Dry mucosa on physical exam. Plan: - Continue IV fluids as above, ensuring sodium correction rate limits are respected. - Monitor renal function and urine output. - Plasma aldosterone and renin activity pending; will calculate ratio (>20:1 suggests primary hyperaldosteronism). - Replete electrolytes as needed. - Renal dose med, avoid nephrotoxin. #Troponemia - downtrending Initial troponin 0.081, likely from dehydration and LU. Plan: - Peaked at 0.081, repeat troponin 0.060. No need to trend further. Chronic medical problem #History of glaucoma #Dementia Plan: - Resume donepezil 10mg PO QD once mentation imrpove. #Chronic pelvic pain syndrome Plan: - Resume home [place] or provide multimodal pain control Health Maintenance: Dispo: [facility] DVT prophylaxis: SCDs GI prophylaxis: Protonix 40 Diet: NG tube feeds Lines: Peripheral IV, velazquez trina Code status: Limited Code Patient plan of care was discussed with the senior resident, Dr. Linares, and attending physician, Dr. Shaw. Ahmet Rodriguez, DO PGY-1 Attending Provider Attestation/Addendum I have examined the patient, reviewed labs and imaging findings, discussed the case with the resident(s), and reviewed entered orders. I agree with the plan of care as outlined in this note, with these additional summaries/recommendations: Patient seen at bedside. No acute overnight events. Patient continues to be encephalopathic although appears slightly improved over the last 48 hours. Patient's speech still mostly incomprehensible although she was able to follow some instructions with speech therapy today. We will continue to treat underlying metabolic and infectious etiology although no significant improvement today. Patient appears to have moderate to severe underlying dementia at baseline although has not received a formal diagnosis. We will continue bilateral wrist restraints for now and continue to reevaluate their removal. Continue NG tube with tube feeds and free water flushes. Given patient has shown some minor improvement over the last 48 hours we will continue to defer PEG tube placement for now. Acute encephalopathy most likely secondary to metabolic and infectious etiologies +/- delirium at this point. Metabolic etiologies including sodium have been corrected. Patient remains on IV Rocephin for E. coli urinary tract infection and bacteremia. Leukocytosis improving. Patient has NG tube in place and consult dietary to start tube feeds and free water flushes. Patient also diagnosed with new onset paroxysmal atrial fibrillation and not a candidate for anticoagulation at this time given her fall risk and agitation. Continue amiodarone 200 mg p.o. twice daily. Patient is limited code and prognosis is guarded at this time. We will follow-up with patient's for additional goals of care as needed. Please see residents note for additional details and management. Dr. Colin MD
--- NOTE | 2025-03-04 20:03 | ESPR_ITS ---
<Statement entered by Mehul Sal MD - 03/07/25 18:17> The patient was evaluated by me personally examined the patient with him clinically fairly well now he is still in sinus rhythm maintaining on amiodarone does not complain of any cardiac symptoms or limitation no orthopnea PND continues to feel well otherwise hemodynamically stable maintaining sinus rhythm reevaluated patient with resident physician Dr. Manuel Vincent continue present medical management including amiodarone will monitor patient for any further arrhythmias patient can be transferred to halfway facility when bed is available Documentation for date of: 03/04/25 Subjective Subjective Interval history: The patient is much more awake today but is still disoriented. She is responding to questions with incoherent utterances. The patient still has an irregular tachycardic rhythm and is hypertensive, will continue amiodarone. Exam Vital Signs Temp Pulse Resp BP Pulse Ox O2 Del Method O2 Flow Rate 98.2 F 101 H 20 140/94 H 97 Room Air 1 03/04/25 19:52 03/04/25 19:52 03/04/25 19:52 03/04/25 19:52 03/04/25 19:52 03/04/25 19:52 03/03/25 00:00 FiO2 0 03/02/25 12:00 Narrative Exam General: Frail, chronically ill-appearing thin elderly lady. No acute distress Neurologic: Patient is awake but unable to communicate, speaking incoherently when responding to questions. HEENT: Normocephalic, atraumatic, mucous membranes moist. Pupils reactive to light. Heart: Regular rate and irregular rhythm. Lungs: Clear to auscultation bilaterally with no wheezing or crackles. Abdomen: Soft, nondistended, nontender, positive bowel sounds. No guarding or rebound tenderness. Extremities: Mild edema in LE bilaterally. 2+ radial and dorsalis pedis pulses bilaterally. Skin: Warm. Dry. No rash or ecchymoses. Objective Labs 03/04/25 04:40 03/04/25 04:40 Labs: Laboratory Results - last 24 hr 03/04/25 04:40 WBC 15.3 H RBC 4.18 Hgb 12.3 Hct 36.2 MCV 87 MCH 29.4 MCHC 34.0 RDW Std Deviation 46.0 Plt Count 284 D Neut % (Auto) 92 H Lymph % (Auto) 3 L [place] % (Auto) 4 Eos % (Auto) 1 Baso % (Auto) 0 Neut # (Auto) 14.1 H Lymph # (Auto) 0.4 L [place] # (Auto) 0.6 Eos # (Auto) 0.1 Baso # (Auto) 0.0 Immature Gran # (Auto) 0.14 H Absolute Nucleated RBC 0.00 Immature Gran % 1 H Nucleated RBC % 0 Sodium 143 Potassium 4.0 Chloride 110 H Carbon Dioxide 20.5 Anion Gap 13 BUN 11 Creatinine 1.1 Estim Creat Clear Calc 22.7 L eGFR 50 L BUN/Creatinine Ratio 10 L Glucose 88 Calculated Osmolality 283 Calcium 8.7 Corrected Calcium 9.2 Phosphorus 2.0 L Magnesium 2.7 H Total Bilirubin 0.5 AST 30 ALT 17 Alkaline Phosphatase 124 H D Total Protein 5.8 Albumin 3.4 Globulin 2.4 Albumin/Globulin Ratio 1.4 ABG Interpretation ABG results: 02/27/25 12:29 VBG pH 7.40 VBG pCO2 43 VBG pO2 27 VBG Base Excess 1 Quality Measures Quality Measures none Advance care planning discussed with:: spouse Assessment & Plan Assessment Current Active Medications: Generic Name Dose Route Start Last Admin Trade Name Freq PRN Reason Stop Dose Admin Acetaminophen 650 mg 03/02/25 07:55 Acetaminophen 325 Mg Tablet PO 03/29/25 15:27 Q6H PRN Fever >100.4 Amiodarone HCl 200 mg 03/02/25 09:45 03/04/25 08:25 Amiodarone Hcl 200 Mg Tablet NG 04/01/25 09:44 200 mg BID LORNE Administration Ceftriaxone Sodium/Dextrose 2 gm in 50 mls @ 100 mls/hr 03/01/25 09:00 03/04/25 18:00 Rocephin/D5w 2gm IV 03/07/25 07:43 Infused QDAY LORNE Infusion Multivitamins 1 tab 03/03/25 17:15 03/04/25 08:25 Multivitamins Tablet PO 04/02/25 17:14 1 tab QDAY LORNE Administration Ondansetron HCl 4 mg 02/27/25 15:28 Ondansetron Inj 2 Mg/Ml Inj 2 Ml IVP 03/29/25 15:27 Q6H PRN NAUSEA OR VOMITING Protocol Sennosides 1 tab 02/27/25 15:28 Senna Tablet PO 03/29/25 15:27 QDAY PRN constipation Protocol Thiamine HCl 100 mg 03/03/25 17:15 03/04/25 08:25 Thiamine 100 Mg Tablet PO 03/10/25 17:14 100 mg QDAY LORNE Administration Plan The patient is an 85-year-old female with past medical history of chronic hypotension requiring midodrine in the past and dementia, which has progressed significantly over the last several years. She was brought to the hospital with altered mental status by her , who is unable to take care of her. While she was in the hospital, she suddenly developed an episode of atrial flutter/fibrillation with rapid heart rate of 150 beats per minute and was transferred to the ICU telemetry or floor for management. EKG showed evidence of atrial flutter with rapid ventricular response of 150 beats per minute. #Paroxysmal atrial flutter and fibrillation. #Severe dementia and anxiety. #Altered mental status. #History of chronic hypotension, now patient is normotensive. #Failure to thrive. -CHADS-VASc score appears to be about 4, but her risk of stroke is only 3%, but risk of bleeding and falls is very high and so I decided not to recommend anticoagulation at this point as the risk/benefit does not favor - Patient's is hypertensive and tachycardic with an irregular rhythm on 03/04/2025 Plan: - Continue amiodarone drip to maintain sinus rhythm - Echo and Doppler study for assessment of LV function and left ventricular wall motion. #Gram-negative suzanne bacteremia #Leukocytosis #Acute encephalopathy #Hypernatremia #Sepsis #LU #Troponin EMEA #History of glaucoma #Chronic pelvic pain syndrome The rest of the patient's hospital problems will be managed per the primary team. Patient was seen and discussed with my attending physician Dr. Sal. Manuel Vincent DO PGY-1.
[2025-03-05] VITALS (10 sets, daily range): BP systolic 118–149; BP diastolic 66–91; PULSE 66–114; RESP 13–98; TEMP 36.1–36.8; O2SAT 98–99; BMI 14.2
[2025-03-05 05:48] LABS: Basophils # (Auto) 0.0 Thou/mm3 (0.0-0.2); Basophils % (Auto) 0 % (0-2.5); Eosinophils # (Auto) 0.1 Thou/mm3 (0.0-0.5); Eosinophils % (Auto) 1 % (0-10); Hematocrit 37.2 % (36.0-46.0); Hemoglobin 12.4 g/dL (12.0-16.0); Immature Granulocytes Auto 0.08 Thou/mm3 (0.00-0.00); Lymphocytes # (Auto) 0.4 Thou/mm3 (1.0-4.8); Lymphocytes % (Auto) 3 % (10-50); Mean Corpuscular HGB Conc 33.3 g/dl (31.0-37.0); Mean Corpuscular Hemoglobin 28.8 pg (25.0-35.0); Mean Corpuscular Volume 86 fL (80-100); Monocytes # (Auto) 0.5 Thou/mm3 (0.0-0.8); Monocytes % (Auto) 4 % (0-12); Neutrophils # (Auto) 12.1 Thou/mm3 (1.8-7.7); Neutrophils % (Auto) 92 % (37-80); Nucleated Red Blood Cell # 0.00 Thou/mm3 (0.00-0.00); Nucleated Red Blood Cell % 0 /100 WBC (0); Platelet Count 270 Thou/mm3 (140-440); RDW Standard Deviation 45.9 fL (36.4-46.3); Red Blood Count 4.31 Miln/mm3 (4.00-5.20); White Blood Count 13.1 Thou/mm3 (3.6-11.0)
[2025-03-05 06:24] LABS: Alanine Aminotransferase 20 U/L (10-49); Albumin, Serum 3.3 gm/dL (3.4-4.8); Albumin/Globulin Ratio 1.3 (1.2-2.2); Alkaline Phosphatase 125 U/L (46-116); Anion Gap 11 (7-16); Aspartate Amino Transferase 32 U/L (0-34); BUN/Creatinine Ratio 14 Ratio (12-20); Bilirubin,Total 0.4 mg/dL (0.3-1.2); Blood Urea Nitrogen 15 mg/dL (9-23); Calcium 9.1 mg/dL (8.3-10.6); Calcium (Corrected) 9.7 mg/dL (8.5-10.1); Carbon Dioxide 24.9 mMol/L (20.0-31.0); Chloride 107 mMol/L (98-107); Creatinine (Component) 1.1 mg/dL (0.6-1.3); Estimated Creatinine Clearance 22.7 mL/min (>60); Globulin 2.6 gm/dL (2.3-3.5); Glucose 109 mg/dL (74-106); Magnesium 2.2 mg/dL (1.6-2.6); Osmolality,Calculated 286 (275-295); Phosphorous 1.9 mg/dL (2.4-5.1); Potassium 4.3 mMol/L (3.4-5.1); Sodium 143 mMol/L (136-145); Total Protein 5.9 gm/dL (5.7-8.2); eGFR 50 See Note
[2025-03-05 06:46] LABS: Renin Activity, Plasma* 2.26 ng/mL/h (0.25-5.82)
--- NOTE | 2025-03-05 07:32 | EKG_ITS ---
[facility] Test Date: 2025-03-05 Pat Name: MELLY SMILEY [facility] Gender[facility] Female [employer] Man: [place] : 1940 Requested By: Ahmet Hathaway Order Number: [id number] Reading MD: Ahmet Hathaway Measurements Intervals [place] Rate: 100 P: SD: QRS: -17 QRSD: 77 T: -31 QT: 374 QTc: 483 Interpretive Statements ATRIAL FIBRILLATION WITH RAPID VENTRICULAR RESPONSE ST DEVIATION AND MODERATE T-WAVE ABNORMALITY, CONSIDER ANTERIOR ISCHEMIA Compared to ECG 02/28/2025 04:30:47 Atrial flutter no longer present T-wave abnormality still present Possible ischemia still present /store/S0/[id number]/ecg/[id number].pdf
--- NOTE | 2025-03-05 07:47 | PC.NURSE ---
Notified Dr. Calle to renew restraints that are due at 08:00
[2025-03-05 08:00] LABS: Troponin I 0.037 ng/mL (0.0-0.045)
--- NOTE | 2025-03-05 08:11 | ESPR_ITS ---
<Statement entered by Prasad Dillard MD - 03/05/25 22:41> Patient was examined and case was reviewed with team including attending physician. Note reviewed, I agree with most of its contents and agree with the patient's care as documented by Dr. Rodriguez Patient seen and evaluated at the bedside. Overnight patient had brief episode of torsades however on telemetry review and when speaking to cardiology team state likely is an artifact. Goals of care discussion was had with the with me Dr. Calle and attending physician Dr. Schultz in regards to the patient's severe dementia and discussed patient will likely need additional support in regards to her nutritional status as she is currently on NGT feeds, it was explained that this is would not be a permanent solution and NGT would need to be discontinued at some point.Options were presented to the in regards to the next step in the patients care stated that hospice would not be an option at this time. Therefore gastroenterology was consulted for possible PEG tube placement while respecting the who is the medical decision maker's wishes. Case discussed with my attending Dr. Marion Dillard MD PGY-2 Disclaimer: Despite multiple revisions, due to the dictation software being used, the document bellow may not be free of grammatical errors including phonetic/typographic errors. However, this does not deter from our commitment to providing health care in the patient's best interest in mind. Documentation for date of: 03/05/25 Subjective Subjective Interval history: Patient was seen at the bedside this morning. Per the night team, she experienced a brief episode of Torsades, lasting approximately seven seconds, which was confirmed on telemetry. At the time of the event, her electrolytes were within normal limits, and no intervention was necessary as the arrhythmia did not recur. Cardiology was consulted regarding the continuation of amiodarone, and recommended maintaining the current therapy. The patient continues to intermittently pull at her NG tube. The need for soft restraints was reassessed and deemed necessary for safety at this time. She remains encephalopathic, though there are signs of gradual improvement?she is now opening her eyes to verbal stimuli and making attempts to speak, though her speech remains largely unintelligible. Enteral nutrition and free water flushes are ongoing via NG tube, currently infusing at 30 mL/hr. A discussion was held with the patient?s , who stated that hospice is not an option but agreed to proceed with PEG tube placement. Exam Vital Signs Temp Pulse Resp BP Pulse Ox O2 Del Method O2 Flow Rate 98.3 F 88 15 136/72 H 99 Room Air 1 03/05/25 08:00 03/05/25 08:00 03/05/25 08:00 03/05/25 08:00 03/05/25 08:00 03/05/25 08:00 03/03/25 00:00 FiO2 0 03/02/25 12:00 Narrative Exam Physical Exam General: Frail and thin. NG tube in place. HEENT: Normocephalic, atraumatic. Mucous membranes dry. Heart: Regular rate and rhythm, no murmurs. Lungs: Decreased breath sounds. Abdomen: Thin, soft, nondistended, nontender. No guarding or rebound tenderness. Neurologic: Patient unable to complete neuro exam. Extremities: Mild edema. Skin: No rash. Ecchymoses present on bilateral forearms. Soft restraints on both forearms. Objective Labs 03/06/25 06:35 03/06/25 04:59 Labs: Laboratory Results - last 24 hr 02/27/25 03/05/25 19:23 04:35 WBC 13.1 H RBC 4.31 Hgb 12.4 Hct 37.2 MCV 86 MCH 28.8 MCHC 33.3 RDW Std Deviation 45.9 Plt Count 270 Neut % (Auto) 92 H Lymph % (Auto) 3 L [place] % (Auto) 4 Eos % (Auto) 1 Baso % (Auto) 0 Neut # (Auto) 12.1 H Lymph # (Auto) 0.4 L [place] # (Auto) 0.5 Eos # (Auto) 0.1 Baso # (Auto) 0.0 Immature Gran # (Auto) 0.08 H Absolute Nucleated RBC 0.00 Immature Gran % 1 H Nucleated RBC % 0 Sodium 143 Potassium 4.3 Chloride 107 Carbon Dioxide 24.9 Anion Gap 11 BUN 15 Creatinine 1.1 Estim Creat Clear Calc 22.7 L eGFR 50 L BUN/Creatinine Ratio 14 Glucose 109 H Calculated Osmolality 286 Calcium 9.1 Corrected Calcium 9.7 Phosphorus 1.9 L Magnesium 2.2 Total Bilirubin 0.4 AST 32 ALT 20 Alkaline Phosphatase 125 H Troponin I 0.037 Total Protein 5.9 Albumin 3.3 L Globulin 2.6 Albumin/Globulin Ratio 1.3 Renin Activity 2.26 ABG Interpretation ABG results: 02/27/25 12:29 VBG pH 7.40 VBG pCO2 43 VBG pO2 27 VBG Base Excess 1 Quality Measures Quality Measures none Advance care planning discussed with:: spouse Assessment & Plan Assessment Current Active Medications: Generic Name Dose Route Start Last Admin Trade Name Freq PRN Reason Stop Dose Admin Acetaminophen 650 mg 03/02/25 07:55 Acetaminophen 325 Mg Tablet PO 03/29/25 15:27 Q6H PRN Fever >100.4 Amiodarone HCl 200 mg 03/02/25 09:45 03/04/25 21:23 Amiodarone Hcl 200 Mg Tablet NG 04/01/25 09:44 200 mg BID LORNE Administration Ceftriaxone Sodium/Dextrose 2 gm in 50 mls @ 100 mls/hr 03/01/25 09:00 03/04/25 18:00 Rocephin/D5w 2gm IV 03/07/25 07:43 Infused QDAY LORNE Infusion Magnesium Sulfate/Dextrose 1 gm in 100 mls @ 100 mls/hr 03/05/25 07:34 Magnesium Sulfate Ivpb IV 03/05/25 08:33 X1 ONE Multivitamins 1 tab 03/03/25 17:15 03/04/25 08:25 Multivitamins Tablet PO 04/02/25 17:14 1 tab QDAY LORNE Administration Ondansetron HCl 4 mg 02/27/25 15:28 Ondansetron Inj 2 Mg/Ml Inj 2 Ml IVP 03/29/25 15:27 Q6H PRN NAUSEA OR VOMITING Protocol Sennosides 1 tab 02/27/25 15:28 Senna Tablet PO 03/29/25 15:27 QDAY PRN constipation Protocol Thiamine HCl 100 mg 03/03/25 17:15 03/04/25 08:25 Thiamine 100 Mg Tablet PO 03/10/25 17:14 100 mg QDAY LORNE Administration Plan 85 year-old female with history of colitis, glaucoma, depression, dementia, and, chronic pelvic pain syndrome admitted for acute encephalopathy, found to have paroxysmal atrial flutter, E.coli bacteremia, and hypernatremia. #Paroxysmal atrial flutter and fibrillation. New-onset atrial flutter/fibrillation Patient converted to sinus rhythm after IV diltiazem 10 mg. CHADS-VASC score estimated at 4. Plan: - Cardiology consulted - appreciate recommendations. - High bleeding and fall risk - anticoagulation deferred for now. - Discontinue diltiazem. - Finished Amiodarone drip, transitioned to PO Amiodarone 200 mg via NG tube on 03/02. Will continue the Amiodarone per cardio. - Echo and Doppler study pending to assess LV function, wall motion, and valvular pathology. - Continuous telemetry monitoring. #E. coli bacteremia #Leukocytosis Likely urinary source given urinalysis findings and concurrent UTI. Gram negative suzanne found in both urine and blood cultures. Plan: - Continue Ceftriaxone to 2 g IV daily (organism sensitive) (03/01-) - Monitor CBC daily; trend WBC. #Acute encephalopathy Likely metabolic vs delirium secondary to UTI. Progressive confusion and weakness over the past year (per ), acutely worsened. Initially present with complaint of increased confusion, progressive weakness over the past year per . Initial Na 158. Initial UA WBC 163, Leukocyte positive, 1+ urine bacteria. CT head (02/27): No acute intracranial abnormality. CXR (02/27): No pneumonia or pulmonary edema. Plan: - Aspiration precautions: HOB >30?. - Failed swallow screen. Speech therapy recommend NG feeds. - Keep NPO. - Continue NG tube with tube feeds and free water flushes. - Continue Ceftriaxone to 2 g IV daily. - Start NG tube feeds (03/03) - Monitor for refeeding syndrome. - Continue thiamine 100mg/day for days and multivitamins per machinist 2nd shift. - Consulted GI for PEG tube - appreciate recs. #Hypernatremia (resolved) Goal: Lower the serum sodium by 10mEq/L in 24H. Calculate aldosterone to renin ratio (>20:1 indicate hyperaldosteronism) Plan - Discontinued D5. - Monitor for volume overload given age and possible cardiac dysfunction. - Replete electrolyte as needed #Sepsis (UTI Source)/SIRS 2/4 qSOFA score: 1 Initial UA WBC 163, Leukocyte positive, 1+ urine bacteria. Plan: - Sepsis protocol followed: early antibiotics, fluid resuscitation, cultures before antibiotics, vasopressors if indicated. - Continue ceftriaxone 2 g IV daily. - Maintain MAP > 65 mmHg. - Velazquez catheter in place for output monitoring; reassess daily for removal. - Monitor vital signs closely. #LU, prerenal (resolved) BUN/Cr ratio of 31. Dry mucosa on physical exam. Plan: - Continue IV fluids as above, ensuring sodium correction rate limits are respected. - Monitor renal function and urine output. - Plasma aldosterone and renin activity pending; will calculate ratio (>20:1 suggests primary hyperaldosteronism). - Replete electrolytes as needed. - Renal dose med, avoid nephrotoxin. #Troponemia - downtrending Initial troponin 0.081, likely from dehydration and LU. Plan: - Peaked at 0.081, repeat troponin 0.060. No need to trend further. Chronic medical problem #History of glaucoma #Dementia Plan: - Resume donepezil 10mg PO QD once mentation imrpove. #Chronic pelvic pain syndrome Plan: - Resume home [place] or provide multimodal pain control Health Maintenance: Dispo: [employer] DVT prophylaxis: SCDs GI prophylaxis: Protonix 40 Diet: NG tube feeds Lines: Peripheral IV, velazquez cath Code status: Limited Code Patient plan of care was discussed with the senior resident, Dr. Linares, and attending physician, Dr. Schultz. Ahmet Rodriguez DO PGY-1 Attending Provider Attestation/Addendum Elle Low DO, attest that I was physically present for the [place] portions of the service and evaluated the patient with the resident and I reviewed and discussed the case with the resident and agree with the resident's findings and plans of care as documented above Patient seen and evaluated this AM. Patient is much easier to arouse and speech is slightly more intelligible. She remains confused and answers questions tangentially. NG tube remains in place. Discussed with ST who states that the patient's mental status is improving, but does not appear to be ready to have NG tube removed and to safely tolerate PO intake. Patient's was met at bedside around 3pm yesterday. Discussed patient's overall guarded prognosis given advanced dementia. Patient has been requiring restraints due to confusion and attempts to get out of bed. Per , patient's dementia had reached a point where she did not allow for him to touch her and at times would be combative. She oftened and had poor PO intake.He states that he is unable to care for her at home and wishes for her to be placed in the same mcc as his daughter. He is understanding that the patient is unable to receive adequate nutrition by mouth given her mental status and risk of aspiration. He states that he thinks patient would fare well with a PEG tube as his daughter also has one. He is understanding of the patient's overall health decline, but stated that he does not want hospice. Will consult GI at this time for PEG tube placement. Patient currently receiving PEG tube feeds at 30mL/hr, will monitor electrolytes closely for refeeding syndrome.
[2025-03-05] MEDS: NAPH,KPH MBDB 1 PACKET (1.5 GM) PO (09:08)
[2025-03-05] MEDS: AMIODARONE HCL 200 MG TABLET NG ×2 (09:08→20:02)
[2025-03-05] MEDS: THIAMINE 100 MG TABLET PO (09:08)
[2025-03-05] MEDS: MULTIVITAMINS TABLET 1 TAB PO (09:09)
[2025-03-05] MEDS: cefTRIAXone/D5w 2gm 2 GM/50 ML BAG IV (09:09)
--- NOTE | 2025-03-05 11:37 | PC.NURSE ---
Notified Dr. Calle to renew patients restraints.
--- NOTE | 2025-03-05 16:36 | PC.SS ---
SS follow up note; SS was informed by Dr Schultz that Goals of care meeting was conducted with patient's and he does not want hospice services at the time. Patient will possibly have Peg-tube.
--- NOTE | 2025-03-05 18:03 | PD.IMCONS ---
HPI Data of Consult Requesting Physician: Elle Schultz DO Primary Care Provider: Susana Cordon PA-C Consult Narrative Reason for consult: Failure to thrive History of present illness: 85 years old female I been called in for possible placement of a PEG tube endoscopically as patient is not eating currently has an NGT which she keeps pulling out and has soft restraints She does have a history of E. coli bacteremia sepsis UTI LU and atrial fibrillation flutter and other issues with cardiac rhythm such as torsade which was 7 seconds did not require any change of therapy currently with amiodarone was at the bedside during my visit to the patient and is fully in support and actually wants his to have the PEG tube placed cc:: cc: Elle Schultz DO Review of Systems Review of Systems Systems Reviewed: All systems reviewed, normal except as documented Past Medical History Surgical History OTHER SURGICAL HX: As in the history of present illness Meds Home Medications and Allergies Home Medications ?Medication ?Instructions ?Recorded ?Confirmed ?Type No Known Home Medications 02/27/25 02/27/25 History Allergies Allergy/AdvReac Type Severity Reaction Status Date / Time No Known Allergies Allergy Verified 07/04/24 18:45 Exam Vital Signs Temp Pulse Resp BP Pulse Ox O2 Del Method O2 Flow Rate 97.6 F 98 21 H 124/70 98 Room Air 1 03/05/25 16:00 03/05/25 16:00 03/05/25 16:00 03/05/25 16:00 03/05/25 16:00 03/05/25 16:00 03/03/25 00:00 FiO2 0 03/02/25 12:00 Results Labs 03/05/25 04:35 03/05/25 04:35 Labs: Short CBC 03/05/25 Range/Units 04:35 WBC 13.1 H (3.6-11.0) Thou/mm3 Hgb 12.4 (12.0-16.0) g/dL Hct 37.2 (36.0-46.0) % Plt Count 270 (140-440) Thou/mm3 BMP 03/05/25 04:35 Sodium 143 Potassium 4.3 Chloride 107 Carbon Dioxide 24.9 BUN 15 Creatinine 1.1 Glucose 109 H Calcium 9.1 Cardiac Enzymes 03/05/25 Range/Units 04:35 Troponin I 0.037 (0.0-0.045) ng/mL Liver Function 03/05/25 Range/Units 04:35 Total Bilirubin 0.4 (0.3-1.2) mg/dL AST 32 (0-34) U/L ALT 20 (10-49) U/L Alkaline Phosphatase 125 H (46-116) U/L Albumin 3.3 L (3.4-4.8) gm/dL ABG Interpretation ABG results: 02/27/25 12:29 VBG pH 7.40 VBG pCO2 43 VBG pO2 27 VBG Base Excess 1 Assessment and Plan Additional Assessment & Plan Additional Plan: # Failure to thrive Consent obtained from the for placement of a percutaneous endoscopic gastrostomy tube via fiberoptic esophagogastroduodenoscopy under intravenous moderate sedation scheduled for tomorrow N.p.o. midnight tonight except meds Hold of the feeding through the NGT at midnight tonight No need for Ancef as patient is already on antibiotics Other medical problems include A-fib flutter E. coli bacteremia Sepsis secondary to UTI resolving LU Thank you very much for the opportunity to participate in the care of this patient
[2025-03-05 18:27] LABS: Anion Gap 9 (7-16); Carbon Dioxide 24.4 mMol/L (20.0-31.0); Chloride 108 mMol/L (98-107); Potassium 3.7 mMol/L (3.4-5.1); Sodium 141 mMol/L (136-145)
--- NOTE | 2025-03-05 21:09 | ESPR_ITS ---
<Statement entered by Mehul Sal MD - 03/07/25 18:17> I personally examined the patient evaluated the resident physician Dr. Manuel Vincent, DO PGY1 patient appears to be doing fairly well except there was a wide QRS complex rhythms on the monitor lead clearly artifact no need to intervene continue amiodarone for A-fib she is maintaining sinus rhythm. Able to the patient with resident physician Dr. Manuel Vincent and resident physician team agree with the treatment plan recommendations documented no need for any concerns since all the rhythm strips are artifacts. Documentation for date of: 03/05/25 Subjective Subjective Interval history: Patient went into what looked like torsades rhythm however this was ruled out due to the presence of QRS complexes throughout the rhythm strip during the suspected episodes, there was also normalization of the patient's rhythm immediately after the rhythm appeared to be going off of the chart, based on these findings, artifact was determined to be the cause of the patient's abnormal rhythm. The patient had a similar mentation today that she did yesterday. We will continue the amiodarone drip to maintain sinus rhythm. Exam Vital Signs Temp Pulse Resp BP Pulse Ox O2 Del Method O2 Flow Rate 96.9 F 91 13 125/91 H 98 Room Air 1 03/05/25 20:00 03/05/25 20:02 03/05/25 20:00 03/05/25 20:02 03/05/25 20:00 03/05/25 20:00 03/03/25 00:00 FiO2 0 03/02/25 12:00 Narrative Exam General: Frail, chronically ill-appearing thin elderly lady. No acute distress Neurologic: Patient is awake but unable to communicate, speaking incoherently when responding to questions. HEENT: Normocephalic, atraumatic, mucous membranes moist. Pupils reactive to light. Heart: Regular rate and irregular rhythm. Lungs: Clear to auscultation bilaterally with no wheezing or crackles. Abdomen: Soft, nondistended, nontender, positive bowel sounds. No guarding or rebound tenderness. Extremities: Mild edema in LE bilaterally. 2+ radial and dorsalis pedis pulses bilaterally. Skin: Warm. Dry. No rash or ecchymoses. Objective Labs 03/05/25 04:35 03/05/25 18:00 Labs: Laboratory Results - last 24 hr 02/27/25 03/05/25 03/05/25 19:23 04:35 18:00 WBC 13.1 H RBC 4.31 Hgb 12.4 Hct 37.2 MCV 86 MCH 28.8 MCHC 33.3 RDW Std Deviation 45.9 Plt Count 270 Neut % (Auto) 92 H Lymph % (Auto) 3 L [place] % (Auto) 4 Eos % (Auto) 1 Baso % (Auto) 0 Neut # (Auto) 12.1 H Lymph # (Auto) 0.4 L [place] # (Auto) 0.5 Eos # (Auto) 0.1 Baso # (Auto) 0.0 Immature Gran # (Auto) 0.08 H Absolute Nucleated RBC 0.00 Immature Gran % 1 H Nucleated RBC % 0 Sodium 143 141 Potassium 4.3 3.7 D Chloride 107 108 H Carbon Dioxide 24.9 24.4 Anion Gap 11 9 BUN 15 Creatinine 1.1 Estim Creat Clear Calc 22.7 L eGFR 50 L BUN/Creatinine Ratio 14 Glucose 109 H Calculated Osmolality 286 Calcium 9.1 Corrected Calcium 9.7 Phosphorus 1.9 L Magnesium 2.2 Total Bilirubin 0.4 AST 32 ALT 20 Alkaline Phosphatase 125 H Troponin I 0.037 Total Protein 5.9 Albumin 3.3 L Globulin 2.6 Albumin/Globulin Ratio 1.3 Renin Activity 2.26 ABG Interpretation ABG results: 02/27/25 12:29 VBG pH 7.40 VBG pCO2 43 VBG pO2 27 VBG Base Excess 1 Quality Measures Quality Measures none Advance care planning discussed with:: spouse Assessment & Plan Assessment Current Active Medications: Generic Name Dose Route Start Last Admin Trade Name Freq PRN Reason Stop Dose Admin Acetaminophen 650 mg 03/02/25 07:55 Acetaminophen 325 Mg Tablet PO 03/29/25 15:27 Q6H PRN Fever >100.4 Amiodarone HCl 200 mg 03/02/25 09:45 03/05/25 20:02 Amiodarone Hcl 200 Mg Tablet NG 04/01/25 09:44 200 mg BID LORNE Administration Ceftriaxone Sodium/Dextrose 2 gm in 50 mls @ 100 mls/hr 03/01/25 09:00 03/05/25 09:09 Rocephin/D5w 2gm IV 03/07/25 07:43 100 mls/hr QDAY LORNE Administration Multivitamins 1 tab 03/03/25 17:15 03/05/25 09:09 Multivitamins Tablet PO 04/02/25 17:14 1 tab QDAY LORNE Administration Ondansetron HCl 4 mg 02/27/25 15:28 Ondansetron Inj 2 Mg/Ml Inj 2 Ml IVP 03/29/25 15:27 Q6H PRN NAUSEA OR VOMITING Protocol Sennosides 1 tab 02/27/25 15:28 Senna Tablet PO 03/29/25 15:27 QDAY PRN constipation Protocol Thiamine HCl 100 mg 03/03/25 17:15 03/05/25 09:08 Thiamine 100 Mg Tablet PO 03/10/25 17:14 100 mg QDAY LORNE Administration Plan The patient is an 85-year-old female with past medical history of chronic hypotension requiring midodrine in the past and dementia, which has progressed significantly over the last several years. She was brought to the hospital with altered mental status by her , who is unable to take care of her. While she was in the hospital, she suddenly developed an episode of atrial flutter/fibrillation with rapid heart rate of 150 beats per minute and was transferred to the ICU telemetry or floor for management. EKG showed evidence of atrial flutter with rapid ventricular response of 150 beats per minute. #Paroxysmal atrial flutter and fibrillation. #Severe dementia and anxiety. #Altered mental status. #History of chronic hypotension, now patient is normotensive. #Failure to thrive. -CHADS-VASc score appears to be about 4, but her risk of stroke is only 3%, but risk of bleeding and falls is very high and so I decided not to recommend anticoagulation at this point as the risk/benefit does not favor - Patient's is hypertensive with a regular rate and rhythm on 03/05/2025 Plan: - Continue amiodarone drip to maintain sinus rhythm - Echo and Doppler study for assessment of LV function and left ventricular wall motion. #Gram-negative suzanne bacteremia #Leukocytosis #Acute encephalopathy #Hypernatremia #Sepsis #LU #Troponin EMEA #History of glaucoma #Chronic pelvic pain syndrome The rest of the patient's hospital problems will be managed per the primary team. Patient was seen and discussed with my attending physician Dr. Sal. Manuel Vincent DO PGY-1.
[2025-03-06] VITALS (22 sets, daily range): BP systolic 76–146; BP diastolic 45–94; PULSE 66–109; RESP 12–98; TEMP 35.8–37; O2SAT 97–100; BMI 14.2
--- NOTE | 2025-03-06 02:54 | PC.NURSE ---
DR. RYAN MADE AWARE OF PT W/ + WHEEZING, +WET LUNG SOUNDS. AUDIBLE WITHOUT STETHOSCOPE. ON 2L NC. NO C/O SOB, DIFFICULTY BREATHING. BREATHING TREATMENT GIVEN ~0040 MD CAME TO BEDSIDE. DOES NOT RECOMMEND TREATMENT AT THIS TIME D/T -TACHYCARDIA ON 2L NC. NO SIGNS OF DISTRESS.
[2025-03-06 06:32] LABS: Alanine Aminotransferase 14 U/L (10-49); Albumin, Serum 2.8 gm/dL (3.4-4.8); Albumin/Globulin Ratio 1.3 (1.2-2.2); Alkaline Phosphatase 115 U/L (46-116); Anion Gap 11 (7-16); Aspartate Amino Transferase 25 U/L (0-34); BUN/Creatinine Ratio 11 Ratio (12-20); Bilirubin,Total 0.4 mg/dL (0.3-1.2); Blood Urea Nitrogen 12 mg/dL (9-23); Calcium 8.7 mg/dL (8.3-10.6); Calcium (Corrected) 9.7 mg/dL (8.5-10.1); Carbon Dioxide 22.6 mMol/L (20.0-31.0); Chloride 108 mMol/L (98-107); Creatinine (Component) 1.1 mg/dL (0.6-1.3); Estimated Creatinine Clearance 22.7 mL/min (>60); Globulin 2.2 gm/dL (2.3-3.5); Glucose 83 mg/dL (74-106); Magnesium 1.7 mg/dL (1.6-2.6); Osmolality,Calculated 281 (275-295); Phosphorous 2.4 mg/dL (2.4-5.1); Potassium 4.3 mMol/L (3.4-5.1); Sodium 142 mMol/L (136-145); Total Protein 5.0 gm/dL (5.7-8.2); eGFR 50 See Note
[2025-03-06 07:01] LABS: Basophils # (Auto) 0.0 Thou/mm3 (0.0-0.2); Basophils % (Auto) 0 % (0-2.5); Eosinophils # (Auto) 0.1 Thou/mm3 (0.0-0.5); Eosinophils % (Auto) 0 % (0-10); Hematocrit 34.1 % (36.0-46.0); Hemoglobin 11.1 g/dL (12.0-16.0); Immature Granulocytes Auto 0.11 Thou/mm3 (0.00-0.00); Lymphocytes # (Auto) 0.4 Thou/mm3 (1.0-4.8); Lymphocytes % (Auto) 2 % (10-50); Mean Corpuscular HGB Conc 32.6 g/dl (31.0-37.0); Mean Corpuscular Hemoglobin 28.2 pg (25.0-35.0); Mean Corpuscular Volume 87 fL (80-100); Monocytes # (Auto) 0.7 Thou/mm3 (0.0-0.8); Monocytes % (Auto) 4 % (0-12); Neutrophils # (Auto) 15.7 Thou/mm3 (1.8-7.7); Neutrophils % (Auto) 92 % (37-80); Nucleated Red Blood Cell # 0.00 Thou/mm3 (0.00-0.00); Nucleated Red Blood Cell % 0 /100 WBC (0); Platelet Count 303 Thou/mm3 (140-440); RDW Standard Deviation 46.5 fL (36.4-46.3); Red Blood Count 3.93 Miln/mm3 (4.00-5.20); White Blood Count 17.0 Thou/mm3 (3.6-11.0)
[2025-03-06] MEDS: Magnesium Sulfate 2 GM Ivpb 2 GM/50 ML BAG IV (07:50)
[2025-03-06] MEDS: cefTRIAXone/D5w 2gm 2 GM/50 ML BAG IV (08:41)
[2025-03-06] MEDS: THIAMINE 100 MG TABLET PO (09:02)
[2025-03-06] MEDS: MULTIVITAMINS TABLET 1 TAB PO (09:02)
[2025-03-06] MEDS: AMIODARONE HCL 200 MG TABLET NG ×2 (09:02→20:40)
--- NOTE | 2025-03-06 12:53 | ESPR_ITS ---
<Statement entered by Prasad Dillard MD - 03/06/25 13:24> Patient was examined and case was reviewed with team including attending physician. Note reviewed, I agree with most of its contents and agree with the patient's care as documented by Dr. Melissa Patient seen today at the bedside. Mental status with some improvement able to be aroused easier now. No intelligible speech, still is confused. was at the bedside spoke to him in regards to discontinuing NG tube and starting PEG tube feeds. He is in agreement to proceed with PEG tube placement. GI was consulted possible placement in the next 24 hours. Case discussed with my attending Dr. Marion Dillard MD PGY-2 Disclaimer: Despite multiple revisions, due to the dictation software being used, the document bellow may not be free of grammatical errors including phonetic/typographic errors. However, this does not deter from our commitment to providing health care in the patient's best interest in mind. Documentation for date of: 03/06/25 Subjective Subjective Interval history: * NAEO. Afebrile, intermittently tachycardic to 109. Patient is much easier to arouse, continues to mumble to herself, no intelligible speech. She remains confused and answers questions tangentially. The patient continues to intermittently pull at her NG tube. The need for soft restraints was reassessed and deemed necessary for safety at this time. Plan for PEG tube placement today. Exam Vital Signs Temp Pulse Resp BP Pulse Ox O2 Del Method O2 Flow Rate 97.0 F 74 14 134/88 H 98 Room Air 1 03/06/25 12:00 03/06/25 12:00 03/06/25 08:16 03/06/25 12:00 03/06/25 08:00 03/06/25 00:00 03/03/25 00:00 FiO2 0 03/02/25 12:00 Narrative Exam General: Frail and thin. NG tube in place. HEENT: Normocephalic, atraumatic. Mucous membranes dry. Heart: Regular rate and rhythm, no murmurs. Lungs: Decreased breath sounds. Abdomen: Thin, soft, nondistended, nontender. No guarding or rebound tenderness. Neurologic: Patient unable to complete neuro exam. Extremities: Mild edema. Skin: No rash. Ecchymoses present on bilateral forearms. Soft restraints on both forearms. Objective Labs 03/07/25 05:04 03/07/25 05:04 Labs: Laboratory Results - last 24 hr 03/05/25 03/06/25 03/06/25 18:00 04:59 06:35 WBC 17.0 H RBC 3.93 L Hgb 11.1 L Hct 34.1 L MCV 87 MCH 28.2 MCHC 32.6 RDW Std Deviation 46.5 H Plt Count 303 D Neut % (Auto) 92 H Lymph % (Auto) 2 L [place] % (Auto) 4 Eos % (Auto) 0 Baso % (Auto) 0 Neut # (Auto) 15.7 H Lymph # (Auto) 0.4 L [place] # (Auto) 0.7 Eos # (Auto) 0.1 Baso # (Auto) 0.0 Immature Gran # (Auto) 0.11 H Absolute Nucleated RBC 0.00 Immature Gran % 1 H Nucleated RBC % 0 Sodium 141 142 Potassium 3.7 D 4.3 D Chloride 108 H 108 H Carbon Dioxide 24.4 22.6 Anion Gap 9 11 BUN 12 Creatinine 1.1 Estim Creat Clear Calc 22.7 L eGFR 50 L BUN/Creatinine Ratio 11 L Glucose 83 Calculated Osmolality 281 Calcium 8.7 Corrected Calcium 9.7 Phosphorus 2.4 Magnesium 1.7 Total Bilirubin 0.4 AST 25 ALT 14 Alkaline Phosphatase 115 Total Protein 5.0 L Albumin 2.8 L D Globulin 2.2 L Albumin/Globulin Ratio 1.3 ABG Interpretation ABG results: 02/27/25 12:29 VBG pH 7.40 VBG pCO2 43 VBG pO2 27 VBG Base Excess 1 Quality Measures Quality Measures none Advance care planning discussed with:: patient Assessment & Plan Assessment Current Active Medications: Generic Name Dose Route Start Last Admin Trade Name Freq PRN Reason Stop Dose Admin Acetaminophen 650 mg 03/02/25 07:55 Acetaminophen 325 Mg Tablet PO 03/29/25 15:27 Q6H PRN Fever >100.4 Amiodarone HCl 200 mg 03/02/25 09:45 03/06/25 09:02 Amiodarone Hcl 200 Mg Tablet NG 04/01/25 09:44 200 mg BID LORNE Administration Ceftriaxone Sodium/Dextrose 2 gm in 50 mls @ 100 mls/hr 03/01/25 09:00 03/06/25 08:41 Rocephin/D5w 2gm IV 03/07/25 07:43 100 mls/hr QDAY LORNE Administration Multivitamins 1 tab 03/03/25 17:15 03/06/25 09:02 Multivitamins Tablet PO 04/02/25 17:14 1 tab QDAY LORNE Administration Sennosides 1 tab 02/27/25 15:28 Senna Tablet PO 03/29/25 15:27 QDAY PRN constipation Protocol Thiamine HCl 100 mg 03/03/25 17:15 03/06/25 09:02 Thiamine 100 Mg Tablet PO 03/10/25 17:14 100 mg QDAY LORNE Administration Plan 85 year-old female with history of colitis, glaucoma, depression, dementia, and, chronic pelvic pain syndrome admitted for acute encephalopathy, found to have paroxysmal atrial flutter, E.coli bacteremia, and hypernatremia. #Paroxysmal atrial flutter and fibrillation. New-onset atrial flutter/fibrillation Patient converted to sinus rhythm after IV diltiazem 10 mg. CHADS-VASC score estimated at 4. TTE: LVEF 55%. Normal LV, RV size and function. Mild-moderate MR with anterior mitral leaflet thickening. Aortic valve sclerosis. Mild TR, Trace [place] Plan: - Cardiology consulted - appreciate recommendations. - High bleeding and fall risk - anticoagulation deferred for now. - Continue Amiodarone 200 mg NG BID - Continuous telemetry monitoring. #E. coli bacteremia #Leukocytosis Likely urinary source given urinalysis findings and concurrent UTI. Gram negative suzanne found in both urine and blood cultures. Plan: - Continue Ceftriaxone to 2 g IV daily (organism sensitive) (03/01-) - Monitor CBC daily; trend WBC. #Acute encephalopathy Likely metabolic vs delirium secondary to UTI. Progressive confusion and weakness over the past year (per ), acutely worsened. Initially present with complaint of increased confusion, progressive weakness over the past year per . Initial Na 158. Initial UA WBC 163, Leukocyte positive, 1+ urine bacteria. CT head (02/27): No acute intracranial abnormality. CXR (02/27): No pneumonia or pulmonary edema. Plan: - Aspiration precautions: HOB >30?. - Failed swallow screen. Speech therapy recommend NG feeds. - Keep NPO. - Continue NG tube with tube feeds and free water flushes. - Continue Ceftriaxone to 2 g IV daily. - NG tube feeds (03/03 -) - Monitor for refeeding syndrome. - Continue thiamine 100mg/day for days and multivitamins per seismic computer. - Plan for PEG tube placement today with Dr. Montes #Hypernatremia (resolved) Goal: Lower the serum sodium by 10mEq/L in 24H. Calculate aldosterone to renin ratio (>20:1 indicate hyperaldosteronism) Plan - Discontinued D5. - Monitor for volume overload given age and possible cardiac dysfunction. - Replete electrolyte as needed #Sepsis (UTI Source)/SIRS 2/4 qSOFA score: 1 Initial UA WBC 163, Leukocyte positive, 1+ urine bacteria. Plan: - Sepsis protocol followed: early antibiotics, fluid resuscitation, cultures before antibiotics, vasopressors if indicated. - Continue ceftriaxone 2 g IV daily. - Maintain MAP > 65 mmHg. - Velazquez catheter in place for output monitoring; reassess daily for removal. - Monitor vital signs closely. #LU, prerenal (resolved) BUN/Cr ratio of 31. Dry mucosa on physical exam. Plan: - Continue IV fluids as above, ensuring sodium correction rate limits are respected. - Monitor renal function and urine output. - Plasma aldosterone and renin activity pending; will calculate ratio (>20:1 suggests primary hyperaldosteronism). - Replete electrolytes as needed. - Renal dose med, avoid nephrotoxin. #Troponemia - downtrending Initial troponin 0.081, likely from dehydration and LU. Plan: - Peaked at 0.081, repeat troponin 0.060. No need to trend further. Chronic medical problem #History of glaucoma #Dementia Plan: - Resume donepezil 10mg PO QD once mentation imrpoves. As pt has been unable to tolerate PO at home, unknown if pt taking Donepezil, Memantine, of Fluoxetine at home. #Chronic pelvic pain syndrome Plan: - Resume home [place] or provide multimodal pain control Health Maintenance: Dispo: Pending PEG tube placement DVT prophylaxis: SCDs GI prophylaxis: Protonix 40 Diet: NG tube feeds Lines: Peripheral IV, velazquez cath Code status: Limited Code Plan discussed with Dr. Calle and Dr. Marion Melissa MD PGY1 Attending Provider Attestation/Addendum Elle Low DO, attest that I was physically present for the abbott portions of the service and evaluated the patient with the resident and I reviewed and discussed the case with the resident and agree with the resident's findings and plans of care as documented above Patient seen and evaluated this AM. She remains somnolent with NG tube in place. Patient remains pending PEG tube placement this afternoon. No family at bedside. Patient has otherwise been afebrile. She remains on restraints at this time. Patient will need to be off restraints upon discharge with SNF for at least 24 hours. Will follow-up after EGD once PEG tube is placed. Dietitian consulted to start PEG tube feeding.
--- NOTE | 2025-03-06 15:57 | SUR.PHASEI ---
received report from ARMIN Wagner, pt sedated, vss, iv to left fa intact
--- NOTE | 2025-03-06 16:15 | SUR.PHASEI ---
Addendum entered by Piedad Tan RN 03/06/25 16:24: correction: report given to ARMIN Beltran Original Note: Pt awake, alert to self. IV still intact, peg tube intact - dressing cdi. ABD binder placed, pt tolerated well. vss. f/c draining well. report given to ARMIN Newman.
--- NOTE | 2025-03-06 16:17 | PC.SS ---
Rounding note: PEG tube placement pending. Patient will return to [facility] when medically clear.
--- NOTE | 2025-03-06 17:18 | PC.NURSE ---
Started tube feeding. Jevity 1.2 at 20ml hr with water flush 25 ml/hr
--- NOTE | 2025-03-06 17:36 | PC.NURSE ---
blood sugar check at this time is 85. tolerating tube feeding.
--- NOTE | 2025-03-06 19:58 | ESPR_ITS ---
<Statement entered by Mehul Sal MD - 03/07/25 18:19> The patient is clinically doing well examined in telemetry floor not having shortness of chest pain spoke to the about the prognosis she is stable from cardiovascular point of view normal left femoral function by echo prognosis is fair from cardiac point of view but overall condition is poor because of dementia she will be transferred to [facility] where patient's daughter is also with a disability stay. However the patient is resident physician agree with the treatment plan recommendation as documented by Dr. anderson PGY 2 Documentation for date of: 03/06/25 Subjective Subjective Interval history: No acute overnight events. Appears at baseline. No apparent distress on exam. Exam Vital Signs Temp Pulse Resp BP Pulse Ox O2 Del Method O2 Flow Rate 97.6 F 90 14 105/58 L 99 Room Air 3 03/06/25 16:25 03/06/25 18:01 03/06/25 18:01 03/06/25 16:25 03/06/25 16:25 03/06/25 00:00 03/06/25 15:40 FiO2 0 03/02/25 12:00 Narrative Exam General: Frail, chronically ill-appearing thin elderly lady. No acute distress Neurologic: Patient is awake but unable to communicate, speaking incoherently when responding to questions. HEENT: Normocephalic, atraumatic, mucous membranes moist. Pupils reactive to light. Heart: Regular rate and irregular rhythm. Lungs: Clear to auscultation bilaterally with no wheezing or crackles. Abdomen: Soft, nondistended, nontender, positive bowel sounds. No guarding or rebound tenderness. Extremities: Mild edema in LE bilaterally. 2+ radial and dorsalis pedis pulses bilaterally. Skin: Warm. Dry. No rash or ecchymoses. Objective Labs 03/06/25 06:35 03/06/25 04:59 Labs: Laboratory Results - last 24 hr 03/06/25 03/06/25 04:59 06:35 WBC 17.0 H RBC 3.93 L Hgb 11.1 L Hct 34.1 L MCV 87 MCH 28.2 MCHC 32.6 RDW Std Deviation 46.5 H Plt Count 303 D Neut % (Auto) 92 H Lymph % (Auto) 2 L [place] % (Auto) 4 Eos % (Auto) 0 Baso % (Auto) 0 Neut # (Auto) 15.7 H Lymph # (Auto) 0.4 L [place] # (Auto) 0.7 Eos # (Auto) 0.1 Baso # (Auto) 0.0 Immature Gran # (Auto) 0.11 H Absolute Nucleated RBC 0.00 Immature Gran % 1 H Nucleated RBC % 0 Sodium 142 Potassium 4.3 D Chloride 108 H Carbon Dioxide 22.6 Anion Gap 11 BUN 12 Creatinine 1.1 Estim Creat Clear Calc 22.7 L eGFR 50 L BUN/Creatinine Ratio 11 L Glucose 83 Calculated Osmolality 281 Calcium 8.7 Corrected Calcium 9.7 Phosphorus 2.4 Magnesium 1.7 Total Bilirubin 0.4 AST 25 ALT 14 Alkaline Phosphatase 115 Total Protein 5.0 L Albumin 2.8 L D Globulin 2.2 L Albumin/Globulin Ratio 1.3 ABG Interpretation ABG results: 02/27/25 12:29 VBG pH 7.40 VBG pCO2 43 VBG pO2 27 VBG Base Excess 1 Quality Measures Quality Measures none Advance care planning discussed with:: spouse Assessment & Plan Assessment Current Active Medications: Generic Name Dose Route Start Last Admin Trade Name Freq PRN Reason Stop Dose Admin Acetaminophen 650 mg 03/02/25 07:55 Acetaminophen 325 Mg Tablet PO 03/29/25 15:27 Q6H PRN Fever >100.4 Amiodarone HCl 200 mg 03/02/25 09:45 03/06/25 09:02 Amiodarone Hcl 200 Mg Tablet NG 04/01/25 09:44 200 mg BID LORNE Administration Ceftriaxone Sodium/Dextrose 2 gm in 50 mls @ 100 mls/hr 03/01/25 09:00 03/06/25 08:41 Rocephin/D5w 2gm IV 03/07/25 07:43 100 mls/hr QDAY LORNE Administration Multivitamins 1 tab 03/03/25 17:15 03/06/25 09:02 Multivitamins Tablet PO 04/02/25 17:14 1 tab QDAY LORNE Administration Sennosides 1 tab 02/27/25 15:28 Senna Tablet PO 03/29/25 15:27 QDAY PRN constipation Protocol Thiamine HCl 100 mg 03/03/25 17:15 03/06/25 09:02 Thiamine 100 Mg Tablet PO 03/10/25 17:14 100 mg QDAY LORNE Administration Plan The patient is an 85-year-old female with past medical history of chronic hypotension requiring midodrine in the past and dementia, which has progressed significantly over the last several years. She was brought to the hospital with altered mental status by her , who is unable to take care of her. While she was in the hospital, she suddenly developed an episode of atrial flutter/fibrillation with rapid heart rate of 150 beats per minute and was transferred to the ICU telemetry or floor for management. EKG showed evidence of atrial flutter with rapid ventricular response of 150 beats per minute. Echocardiogram showed normal LV size and function, EF 55%, normal RV size and function, mild to moderate MR, anterior mitral leaflet thickening, aortic valve sclerosis, mild TR, trace [place]. #Paroxysmal atrial flutter and fibrillation. #Severe dementia and anxiety. #Altered mental status. #History of chronic hypotension, now patient is normotensive. #Failure to thrive. -CHADS-VASc score appears to be about 4, but her risk of stroke is only 3%, but risk of bleeding and falls is very high and so I decided not to recommend anticoagulation at this point as the risk/benefit does not favor - Patient's is hypertensive with a regular rate and rhythm on 03/05/2025 Plan: - Continue amiodarone drip to maintain sinus rhythm - Echo and Doppler study for assessment of LV function and left ventricular wall motion. #Gram-negative suzanne bacteremia #Leukocytosis #Acute encephalopathy #Hypernatremia #Sepsis #LU #Troponin EMEA #History of glaucoma #Chronic pelvic pain syndrome The rest of the patient's hospital problems will be managed per the primary team. Case was discussed with attending physician, Dr. Sal. Yana Anderson DO PGY II This document was transcribed using voice recognition technology. Minor inaccuracies may be present.
[2025-03-07] VITALS (10 sets, daily range): BP systolic 118–141; BP diastolic 51–76; PULSE 77–103; RESP 15–100; TEMP 36.1–36.9; O2SAT 95–100; BMI 17.1
[2025-03-07 06:09] LABS: Basophils # (Auto) 0.0 Thou/mm3 (0.0-0.2); Basophils % (Auto) 0 % (0-2.5); Eosinophils # (Auto) 0.1 Thou/mm3 (0.0-0.5); Eosinophils % (Auto) 0 % (0-10); Hematocrit 37.1 % (36.0-46.0); Hemoglobin 11.9 g/dL (12.0-16.0); Immature Granulocytes Auto 0.09 Thou/mm3 (0.00-0.00); Lymphocytes # (Auto) 0.5 Thou/mm3 (1.0-4.8); Lymphocytes % (Auto) 3 % (10-50); Mean Corpuscular HGB Conc 32.1 g/dl (31.0-37.0); Mean Corpuscular Hemoglobin 28.5 pg (25.0-35.0); Mean Corpuscular Volume 89 fL (80-100); Monocytes # (Auto) 0.5 Thou/mm3 (0.0-0.8); Monocytes % (Auto) 4 % (0-12); Neutrophils # (Auto) 12.6 Thou/mm3 (1.8-7.7); Neutrophils % (Auto) 92 % (37-80); Nucleated Red Blood Cell # 0.00 Thou/mm3 (0.00-0.00); Nucleated Red Blood Cell % 0 /100 WBC (0); Platelet Count 241 Thou/mm3 (140-440); RDW Standard Deviation 48.4 fL (36.4-46.3); Red Blood Count 4.18 Miln/mm3 (4.00-5.20); White Blood Count 13.8 Thou/mm3 (3.6-11.0)
[2025-03-07 06:48] LABS: Alanine Aminotransferase 14 U/L (10-49); Albumin, Serum 3.2 gm/dL (3.4-4.8); Albumin/Globulin Ratio 1.3 (1.2-2.2); Alkaline Phosphatase 130 U/L (46-116); Anion Gap 12 (7-16); Aspartate Amino Transferase 28 U/L (0-34); BUN/Creatinine Ratio 13 Ratio (12-20); Bilirubin,Total 0.4 mg/dL (0.3-1.2); Blood Urea Nitrogen 13 mg/dL (9-23); Calcium 9.4 mg/dL (8.3-10.6); Calcium (Corrected) 10.0 mg/dL (8.5-10.1); Carbon Dioxide 24.1 mMol/L (20.0-31.0); Chloride 106 mMol/L (98-107); Creatinine (Component) 1.0 mg/dL (0.6-1.3); Estimated Creatinine Clearance 30.0 mL/min (>60); Globulin 2.5 gm/dL (2.3-3.5); Glucose 99 mg/dL (74-106); Magnesium 2.0 mg/dL (1.6-2.6); Osmolality,Calculated 283 (275-295); Phosphorous 2.9 mg/dL (2.4-5.1); Potassium 4.8 mMol/L (3.4-5.1); Sodium 142 mMol/L (136-145); Total Protein 5.7 gm/dL (5.7-8.2); eGFR 56 See Note
--- NOTE | 2025-03-07 07:53 | ESPR_ITS ---
<Statement entered by Prasad Dillard MD - 03/07/25 12:37> Patient was examined and case was reviewed with team including attending physician. Note reviewed, I agree with most of its contents and agree with the patient's care as documented by Dr. Rodriguez Patient seen and evaluated at the bedside. Patient is status post PEG tube placement overall mental status has seemed to improve. Currently uptitrating tube feeds to goal which is 50 mL/h with water flushes. Overall clinical status is improving at this time. Likely discharge in the next 24-48 hours or once tube feeds reached goal. Case discussed with my attending Dr. Marion Dillard MD PGY-2 Disclaimer: Despite multiple revisions, due to the dictation software being used, the document bellow may not be free of grammatical errors including phonetic/typographic errors. However, this does not deter from our commitment to providing health care in the patient's best interest in mind. Documentation for date of: 03/07/25 Subjective Subjective Interval history: Patient was seen at the bedside this morning. Overnight, the nurse contacted the on-call team with a request for restraints (reason unclear), restraints were not applied, and diphenhydramine was administered instead. The patient is status post PEG tube placement. Mental status appears to be improving. Tube feeds are currently running at 25 mL/hr and will be advanced as tolerated. Exam Vital Signs Temp Pulse Resp BP Pulse Ox O2 Del Method O2 Flow Rate 97.2 F 103 H 29 H 140/54 H 99 Room Air 3 03/07/25 04:00 03/07/25 04:00 03/07/25 04:00 03/07/25 04:00 03/07/25 04:00 03/07/25 04:00 03/06/25 15:40 FiO2 0 03/02/25 12:00 Narrative Exam Physical Exam General: Frail and thin. HEENT: Normocephalic, atraumatic. Mucous membranes dry. Heart: Regular rate and rhythm, no murmurs. Lungs: Decreased breath sounds. Abdomen: Thin, soft, nondistended, nontender. No guarding or rebound tenderness. PEG tube in place. Neurologic: Patient unable to complete neuro exam. Extremities: Mild edema. Skin: No rash. Ecchymoses present on bilateral forearms. Soft restraints on both forearms. Objective Labs 03/07/25 05:04 03/07/25 05:04 Labs: Laboratory Results - last 24 hr 03/07/25 05:04 WBC 13.8 H RBC 4.18 Hgb 11.9 L Hct 37.1 MCV 89 MCH 28.5 MCHC 32.1 RDW Std Deviation 48.4 H Plt Count 241 D Neut % (Auto) 92 H Lymph % (Auto) 3 L [place] % (Auto) 4 Eos % (Auto) 0 Baso % (Auto) 0 Neut # (Auto) 12.6 H Lymph # (Auto) 0.5 L [place] # (Auto) 0.5 Eos # (Auto) 0.1 Baso # (Auto) 0.0 Immature Gran # (Auto) 0.09 H Absolute Nucleated RBC 0.00 Immature Gran % 1 H Nucleated RBC % 0 Sodium 142 Potassium 4.8 D Chloride 106 Carbon Dioxide 24.1 Anion Gap 12 BUN 13 Creatinine 1.0 Estim Creat Clear Calc 30.0 L eGFR 56 L BUN/Creatinine Ratio 13 Glucose 99 Calculated Osmolality 283 Calcium 9.4 Corrected Calcium 10.0 Phosphorus 2.9 Magnesium 2.0 Total Bilirubin 0.4 AST 28 ALT 14 Alkaline Phosphatase 130 H Total Protein 5.7 Albumin 3.2 L Globulin 2.5 Albumin/Globulin Ratio 1.3 ABG Interpretation ABG results: 02/27/25 12:29 VBG pH 7.40 VBG pCO2 43 VBG pO2 27 VBG Base Excess 1 Quality Measures Quality Measures none Advance care planning discussed with:: spouse Assessment & Plan Assessment Current Active Medications: Generic Name Dose Route Start Last Admin Trade Name Freq PRN Reason Stop Dose Admin Acetaminophen 650 mg 03/02/25 07:55 Acetaminophen 325 Mg Tablet PO 03/29/25 15:27 Q6H PRN Fever >100.4 Amiodarone HCl 200 mg 03/02/25 09:45 03/06/25 20:40 Amiodarone Hcl 200 Mg Tablet NG 04/01/25 09:44 200 mg BID LORNE Administration Multivitamins 1 tab 03/03/25 17:15 03/06/25 09:02 Multivitamins Tablet PO 04/02/25 17:14 1 tab QDAY LORNE Administration Sennosides 1 tab 02/27/25 15:28 Senna Tablet PO 03/29/25 15:27 QDAY PRN constipation Protocol Thiamine HCl 100 mg 03/03/25 17:15 03/06/25 09:02 Thiamine 100 Mg Tablet PO 03/10/25 17:14 100 mg QDAY LORNE Administration Plan 85 year-old female with history of colitis, glaucoma, depression, dementia, and, chronic pelvic pain syndrome admitted for acute encephalopathy, found to have paroxysmal atrial flutter, E.coli bacteremia, and hypernatremia. #Failure to thrive Failed swallow screen. NG tube feeding 03/03-03/06. PEG tube placed 02/[address] Montes. Plan - PEG tube feeds at 25 mL/h and will continue to uptitrate to goal (50 mL/h) with water flushes. - Clean PEG site once a day with Betadine. - Abdominal binder at all times. - Water 100 cc via PEG tube every 4 hours. - Consult dietary for nutrition formulation. - Check gastric residuals every 4 hours and if they are more than 100 cc hold the PEG feeding. - Keep the head end of the patient at 45 degree supine to prevent aspiration. #Paroxysmal atrial flutter and fibrillation. New-onset atrial flutter/fibrillation Patient converted to sinus rhythm after IV diltiazem 10 mg. CHADS-VASC score estimated at 4. TTE: LVEF 55%. Normal LV, RV size and function. Mild-moderate MR with anterior mitral leaflet thickening. Aortic valve sclerosis. Mild TR, Trace [place] Plan: - Cardiology consulted - appreciate recommendations. - High bleeding and fall risk - anticoagulation deferred for now. - Continue Amiodarone 200 mg PEG tube BID - Continuous telemetry monitoring. #E. coli bacteremia #Leukocytosis Likely urinary source given urinalysis findings and concurrent UTI. Gram negative suzanne found in both urine and blood cultures. Plan: - Continue Ceftriaxone to 2 g IV daily (organism sensitive) (03/01-03/14). - Monitor CBC daily; trend WBC. #Acute encephalopathy (improving) Likely metabolic vs delirium secondary to UTI. Progressive confusion and weakness over the past year (per ), acutely worsened. Initially present with complaint of increased confusion, progressive weakness over the past year per . Initial Na 158. Initial UA WBC 163, Leukocyte positive, 1+ urine bacteria. CT head (02/27): No acute intracranial abnormality. CXR (02/27): No pneumonia or pulmonary edema. Plan: - Continue Ceftriaxone, as above. - Monitor for refeeding syndrome. - Continue thiamine 100mg/day for days and multivitamins per dormitory keeper. #Hypernatremia (resolved) Goal: Lower the serum sodium by 10mEq/L in 24H. Calculate aldosterone to renin ratio (>20:1 indicate hyperaldosteronism) Plan - Discontinued D5. - Monitor for volume overload given age and possible cardiac dysfunction. - Replete electrolyte as needed #Sepsis (UTI Source)/SIRS 2/4 qSOFA score: 1 Initial UA WBC 163, Leukocyte positive, 1+ urine bacteria. Plan: - Sepsis protocol followed: early antibiotics, fluid resuscitation, cultures before antibiotics, vasopressors if indicated. - Continue ceftriaxone 2 g IV daily. - Maintain MAP > 65 mmHg. - Velazquez catheter in place for output monitoring; reassess daily for removal. - Monitor vital signs closely. #LU, prerenal (resolved) BUN/Cr ratio of 31. Dry mucosa on physical exam. Plan: - Continue IV fluids as above, ensuring sodium correction rate limits are respected. - Monitor renal function and urine output. - Plasma aldosterone and renin activity pending; will calculate ratio (>20:1 suggests primary hyperaldosteronism). - Replete electrolytes as needed. - Renal dose med, avoid nephrotoxin. #Troponemia - downtrending Initial troponin 0.081, likely from dehydration and LU. Plan: - Peaked at 0.081, repeat troponin 0.060. No need to trend further. Chronic medical problem #History of glaucoma #Dementia Plan: - Resume donepezil 10mg PO QD once mentation imrpoves. As pt has been unable to tolerate PO at home, unknown if pt taking Donepezil, Memantine, of Fluoxetine at home. #Chronic pelvic pain syndrome Plan: - Resume home [place] or provide multimodal pain control Health Maintenance: DVT prophylaxis: SCDs GI prophylaxis: Protonix 40 Diet: PEG tube feeds Lines: Peripheral IV, velazquez cath Code status: Limited Code Patient plan of care was discussed with the senior resident, Dr. Linares, and attending physician, . Ahmet Rodriguez DO PGY-1 Attending Provider Attestation/Addendum Elle Low DO, attest that I was physically present for the abbott portions of the service and evaluated the patient with the resident and I reviewed and discussed the case with the resident and agree with the resident's findings and plans of care as documented above Patient seen and evaluated this AM. Patient is s/p PEG tube placement and tolerated procedure well. Patient is calm and resting comfortably. No longer requiring any restraints. Tube feedings started, but not at goal. If patient remains off restraints and tube feedings can be advanced at SNF, patient can be discharged within next 24h. No acute events overnight otherwise.
[2025-03-07] MEDS: AMIODARONE HCL 200 MG TABLET GT ×2 (09:15→20:37)
[2025-03-07] MEDS: THIAMINE 100 MG TABLET GT (09:16)
[2025-03-07] MEDS: MULTIVITAMIN 15 ML UDC GT (09:17)
[2025-03-07] MEDS: cefTRIAXone/D5w 2gm 2 GM/50 ML BAG IV (10:30)
--- NOTE | 2025-03-07 20:18 | ESPR_ITS ---
Documentation for date of: 03/07/25 Subjective Subjective Interval history: Patient evaluated PEG tube feeding in progress at 25 mL/h no drainage at the PEG site Exam Vital Signs Temp Pulse Resp BP Pulse Ox O2 Del Method O2 Flow Rate 97.8 F 85 22 H 141/75 H 100 Room Air 3 03/07/25 16:00 03/07/25 18:56 03/07/25 18:56 03/07/25 16:00 03/07/25 16:00 03/07/25 16:00 03/06/25 15:40 FiO2 0 03/02/25 12:00 Objective Labs 03/07/25 05:04 03/07/25 05:04 Labs: Laboratory Results - last 24 hr 03/07/25 05:04 WBC 13.8 H RBC 4.18 Hgb 11.9 L Hct 37.1 MCV 89 MCH 28.5 MCHC 32.1 RDW Std Deviation 48.4 H Plt Count 241 D Neut % (Auto) 92 H Lymph % (Auto) 3 L [place] % (Auto) 4 Eos % (Auto) 0 Baso % (Auto) 0 Neut # (Auto) 12.6 H Lymph # (Auto) 0.5 L [place] # (Auto) 0.5 Eos # (Auto) 0.1 Baso # (Auto) 0.0 Immature Gran # (Auto) 0.09 H Absolute Nucleated RBC 0.00 Immature Gran % 1 H Nucleated RBC % 0 Sodium 142 Potassium 4.8 D Chloride 106 Carbon Dioxide 24.1 Anion Gap 12 BUN 13 Creatinine 1.0 Estim Creat Clear Calc 30.0 L eGFR 56 L BUN/Creatinine Ratio 13 Glucose 99 Calculated Osmolality 283 Calcium 9.4 Corrected Calcium 10.0 Phosphorus 2.9 Magnesium 2.0 Total Bilirubin 0.4 AST 28 ALT 14 Alkaline Phosphatase 130 H Total Protein 5.7 Albumin 3.2 L Globulin 2.5 Albumin/Globulin Ratio 1.3 Impressions Impression: Failure to thrive Status post placement of a PEG tube Continue PEG feeding and water via the PEG tube Daily dressing change once a day with Betadine cleaning ABG Interpretation ABG results: 02/27/25 12:29 VBG pH 7.40 VBG pCO2 43 VBG pO2 27 VBG Base Excess 1 Assessment & Plan A&P Narrative # Failure to thrive Consent obtained from the for placement of a percutaneous endoscopic gastrostomy tube via fiberoptic esophagogastroduodenoscopy under intravenous moderate sedation scheduled for tomorrow N.p.o. midnight tonight except meds Hold of the feeding through the NGT at midnight tonight No need for Ancef as patient is already on antibiotics Other medical problems include A-fib flutter E. coli bacteremia Sepsis secondary to UTI resolving LU Thank you very much for the opportunity to participate in the care of this patient Time Spent With Patient Time: Total time spent is greater than 50% in coordination of care (as documented) at patient's floor/unit and/or counseling patient:
[2025-03-08] VITALS: BP 143/71; PULSE 78; PULSE 88; RESP 20; TEMP 36.7; O2SAT 97
--- NOTE | 2025-03-08 00:05 | PC.NURSE ---
received report from Gauri RN, pt transferred to room 379 @ 1350
--- NOTE | 2025-03-08 00:13 | ESPR_ITS ---
RE: MELLY SMILEY : 1940 DATE OF SERVICE: 03/07/2025 SUBJECTIVE: The patient is doing fairly well. Now much more alert and awake today. She is responding; though, she is confused. Much more arousable. Respond to verbal stimuli to questioning. She says she feels fine, but did not recognize me. She is getting PEG tubings as well. Vital signs remain stable. Remains in sinus rhythm, now maintaining. Saturating well on 3 L nasal cannula. PHYSICAL EXAMINATION: Vital Signs: Shows blood pressure 141/75, pulse rate is 85, respiratory rate 22, and temperature normal. Neck: Supple. Lungs: Decreased breath sounds. No rales or rhonchi. Heart: S1 and S2. Regular sinus rhythm. Abdomen: Soft. Extremities: No edema. IMPRESSION: 1. Atrial fibrillation, now appears to be in sinus rhythm. 2. Escherichia coli bacteremia with sepsis secondary to urinary tract infection, resolving. 3. Failure to thrive, requiring tube feeding. RECOMMENDATIONS: Continue medical management. Currently, rate is stable. Whenever she is stable to be transferred to [facility]dc facility. DT: 23:34:48 TT: 00:12:00 Ref: [id number] - TID: [id number]
[2025-03-08 04:00] VITALS: BP 149/51; PULSE 94; PULSE 95; RESP 25; TEMP 36.3; O2SAT 98
[2025-03-08 06:52] VITALS: PULSE 89; RESP 100; RESP 16
[2025-03-08 06:55] LABS: Aldosterone* <5 ng/dL
[2025-03-08 08:00] VITALS: BP 96/65; PULSE 66; PULSE 83; RESP 18; TEMP 36.1; O2SAT 99
[2025-03-08] MEDS: cefTRIAXone/D5w 2gm 2 GM/50 ML BAG IV (09:08)
[2025-03-08] MEDS: MULTIVITAMIN 15 ML UDC GT (09:09)
[2025-03-08] MEDS: THIAMINE 100 MG TABLET GT (09:09)
--- NOTE | 2025-03-08 09:15 | PD.RESPRO ---
Documentation for date of: 03/08/25 Subjective Subjective Interval history: Patient was seen at bedside today. Exam Vital Signs Temp Pulse Resp BP Pulse Ox O2 Del Method O2 Flow Rate 97.4 F 89 16 149/51 H 98 Room Air 3 03/08/25 04:00 03/08/25 06:52 03/08/25 06:52 03/08/25 04:00 03/08/25 04:00 03/08/25 04:00 03/06/25 15:40 FiO2 0 03/02/25 12:00 Objective Labs 03/07/25 05:04 03/07/25 05:04 Labs: Laboratory Results - last 24 hr 02/27/25 19:23 Aldosterone <5 ABG Interpretation ABG results: 02/27/25 12:29 VBG pH 7.40 VBG pCO2 43 VBG pO2 27 VBG Base Excess 1 Quality Measures Quality Measures none Assessment & Plan Assessment Current Active Medications: Generic Name Dose Route Start Last Admin Trade Name Freq PRN Reason Stop Dose Admin Acetaminophen 650 mg 03/07/25 08:54 Acetaminophen Marilyn 325 Mg/10 Ml Udc GT 03/29/25 15:27 Q6H PRN Fever >100.4 Amiodarone HCl 200 mg 03/07/25 09:00 03/07/25 20:37 Amiodarone Hcl 200 Mg Tablet GT 04/01/25 09:44 200 mg BID LORNE Administration Ceftriaxone Sodium/Dextrose 2 gm in 50 mls @ 100 mls/hr 03/07/25 10:00 03/08/25 09:08 Rocephin/D5w 2gm IV 03/14/25 09:59 100 mls/hr QDAY LORNE Administration Multivitamins/Minerals 15 ml 03/07/25 09:00 03/08/25 09:09 Multivitamin 15 Ml Udc GT 04/02/25 17:14 15 ml QDAY LORNE Administration Quetiapine Fumarate 12.5 mg 03/07/25 21:00 03/07/25 20:37 Quetiapine Fumarate 25 Mg Tablet PO 04/06/25 20:59 12.5 mg HS LORNE Administration Sennosides 1 tab 03/07/25 08:54 Senna Tablet GT 03/29/25 15:27 QDAY PRN constipation Protocol Thiamine HCl 100 mg 03/07/25 09:00 03/08/25 09:09 Thiamine 100 Mg Tablet GT 03/10/25 17:14 100 mg QDAY LORNE Administration
[2025-03-08 09:52] VITALS: BP 96/65; PULSE 83
[2025-03-08] MEDS: AMIODARONE HCL 200 MG TABLET GT (09:52)
[2025-03-08 12:00] VITALS: BP 126/57; PULSE 96; PULSE 99; RESP 18; TEMP 36.3; O2SAT 97
--- NOTE | 2025-03-08 12:58 | ESDS_ITS ---
<Statement entered by Elle Schultz DO - 03/09/25 08:06> I, Elle Schultz DO, attest that I was physically present for the [place]bott portions of the service and evaluated the patient with the resident and I reviewed and discussed the case with the resident and agree with the resident's findings and plans of care as documented above <Statement entered by Prasad Dillard MD - 03/08/25 15:03> Patient was examined and case was reviewed with team including attending physician. Note reviewed, I agree with most of its contents and agree with the patient's care as documented by Dr. Rodriguez Case discussed with my attending Dr. Marion Dillard MD PGY-2 Disclaimer: Despite multiple revisions, due to the dictation software being used, the document bellow may not be free of grammatical errors including phonetic/typographic errors. However, this does not deter from our commitment to providing health care in the patient's best interest in mind. Planned Discharge Date 03/08/25 DS: Providers Provider Date of admission: 02/27/25 15:28 Primary care physician: Susana Cordon PA-C Admitting Provider: Griffin Shaw MD Attending Provider on Admission: Elle Schultz DO Consults: 02/27/25 19:59 Referral Registered Dietitian Routine Comment: 02/27/25 23:35 Referral Speech Therapy Routine Comment: 02/28/25 00:21 Referral Wound Care Routine Comment: 02/28/25 09:50 Consult to Cardiology Stat Comment: Consulting Provider: Mehul Sal 03/05/25 15:05 Consult to Gastroenterology Stat Comment: Consulting Provider: Sarah Montes 03/06/25 15:38 Consult Diabetic Routine Comment: Attending Provider on DC: Elle Schultz DO Discharging Provider: Ahmet Rodriguez DO Anticipated date of discharge: 03/08/25 DS: Diagnosis Problem List Completed Was Problem List Reviewed/Reconciled?: Yes Hospital Course Hospital Course Hospital course: 85-year-old woman with dementia, hypertension, and prior colon cancer was admitted on 02/27 with acute encephalopathy. Workup showed E. coli UTI with bacteremia, sepsis, hypernatremia, LU, and lactic acidosis. CT head was negative, and she was started on IV fluids and ceftriaxone. On 02/28, she developed new atrial flutter with RVR, which resolved with IV diltiazem and transitioned to amiodarone. From 03/01?03/02, she remained en cephalopathic, NPO, and required NG tube for meds and nutrition. Sodium improved, lactate normalized, and cultures confirmed E. coli sensitive to ceftriaxone. Code status was changed to DNR (intubation permitted) after family discussion. Between 03/03?03/05, she continued ceftriaxone and amiodarone (PO via NG). Leukocytosis improved, LU trended down, but she remained unable to swallow. Patient has a CHADSVASC of 4, but due to dementia, failure to thrive, generalized weakness and falls, the risk of anticoagulation outweighs the benefits. Family declined hospice and requested long-term feeding support. GI was consulted for PEG placement. On 03/06, echocardiogram showed preserved EF (55%) with mild valvular disease. She underwent PEG placement and tube feeds were initiated. By 03/07, mental status showed gradual improvement, tube feeds were advanced toward goal, she remained in sinus rhythm on amiodarone. Patient is medically and physically stable for discharge. Diagnosis #Escherichia coli bacteremia with sepsis secondary to urinary tract infection #Acute encephalopathy #Failure to thrive #Dementia #Paroxysmal atrial flutter/fibrillation #Acute kidney injury #Hypernatremia #Troponinemia #Lactic acidosis #Hypertension #History of colon cancer #Chronic pelvic pain syndrome #Dyslipidemia #History of valley fever Discharge Plan: Follow up with primary care physician within 1 week of discharge Continue PEG tube feeds for adequate nutrition, can have pleasure feeds with very close monitoring Should symptoms recur or worsen patient is instructed to return to the ED. 1) Wound care -IASD, Intertrigo to bilateral buttocks, jacey area and groin folds: gently cleanse with soap and water, pat dry, apply floor stock antifungal cream QID and PRN for incontinences. No briefs - Blanchable redness to upper back and prevention to coccyx/sacrum: allyven dressing daily - Generalized bruising, scabs and dry skin tears: moisturizing cream daily after bathing. Case discussed with my senior resident Dr. Luc Dillard and my attending Dr. Schultz. Ahmet Rodriguez DO PGY 1 Status at Discharge Overall status at discharge: patient is progressing back to baseline Time Spent with Patient Time attestation: Total time spent providing and/or coordinating discharge services: Time spent: Greater than 30 minutes Exam Vital Signs Temp Pulse Resp BP Pulse Ox O2 Del Method O2 Flow Rate 97.4 F 96 18 126/57 L 97 Room Air 3 03/08/25 12:00 03/08/25 12:00 03/08/25 12:00 03/08/25 12:00 03/08/25 12:00 03/08/25 12:00 03/06/25 15:40 FiO2 0 03/02/25 12:00 Narrative Exam Physical Exam General: Frail and thin. HEENT: Normocephalic, atraumatic. Mucous membranes dry. Heart: Regular rate and rhythm, no murmurs. Lungs: Decreased breath sounds. Abdomen: Thin, soft, nondistended, nontender. No guarding or rebound tenderness. PEG tube in place. Neurologic: Patient unable to complete neuro exam. Extremities: Mild edema. Skin: No rash. Ecchymoses present on bilateral forearms. Soft restraints on both forearms. Discharge Plan Plan Patient Disposition: Xfer Skilled Nsg Fac (SNF) Care Plan Goals: Follow up with primary care physician within 1 week of discharge Continue PEG tube feeds for adequate nutrition, can have pleasure feeds with very close monitoring Follow up with cardiology in regards to your atrial fibrillation Should symptoms recur or worsen patient is instructed to return to the ED. 1) Wound care -IASD, Intertrigo to bilateral buttocks, jacey area and groin folds: gently cleanse with soap and water, pat dry, apply floor stock antifungal cream QID and PRN for incontinences. No briefs - Blanchable redness to upper back and prevention to coccyx/sacrum: allyven dressing daily - Generalized bruising, scabs and dry skin tears: moisturizing cream daily after bathing. Prescriptions/Referrals Prescriptions/Med Rec: New multivitamin Tablet 1 tab feeding tube QDAY Qty: 30 0RF amiodarone 200 mg tablet 200 mg feeding tube BID 30 Days Qty: 60 0RF quetiapine [Seroquel] 25 mg tablet 25 mg feeding tube ONCE HS PRN (Reason: agitation) 30 Days Qty: 30 0RF Referrals: Susana Cordon PA-C [Primary Care Provider] - Patient/Caregiver Discharge Instructions Print Language: Kinyarwanda Stand Alone Forms: Shara Award Info., Patient Portal Info Letter Discharge Order Discharge Orders: Discharge (Routine); Ordered 03/08/25 Ordered By: Prasad Dillard Quality Discharge Quality Measures none
--- NOTE | 2025-03-08 14:28 | PC.SS ---
Addendum entered by Ria Farnsworth 03/08/25 15:00: SS follow up note; SS was contacted by [employer] services providing ETA for 1530. SS notified patient's nurse as well as patient's and Shireen from [facility]. Original Note: SS follow up note; SS was informed by Team A that patient would be discharging today. SS contacted patient's ,Adam to inform him that patient was discharging today. SS also discussed transportation with Adam, and he informed SS that he is not able to cover Transportation cost. SS contacted [facility] services. [facility] informed SS that they would contact SS back with ETA.
[2025-03-08 14:34] LABS: Basophils # (Auto) 0.0 Thou/mm3 (0.0-0.2); Basophils % (Auto) 0 % (0-2.5); Eosinophils # (Auto) 0.0 Thou/mm3 (0.0-0.5); Eosinophils % (Auto) 0 % (0-10); Hematocrit 31.5 % (36.0-46.0); Hemoglobin 10.4 g/dL (12.0-16.0); Immature Granulocytes Auto 0.08 Thou/mm3 (0.00-0.00); Lymphocytes # (Auto) 0.4 Thou/mm3 (1.0-4.8); Lymphocytes % (Auto) 3 % (10-50); Mean Corpuscular HGB Conc 33.0 g/dl (31.0-37.0); Mean Corpuscular Hemoglobin 28.8 pg (25.0-35.0); Mean Corpuscular Volume 87 fL (80-100); Monocytes # (Auto) 0.6 Thou/mm3 (0.0-0.8); Monocytes % (Auto) 4 % (0-12); Neutrophils # (Auto) 11.4 Thou/mm3 (1.8-7.7); Neutrophils % (Auto) 92 % (37-80); Nucleated Red Blood Cell # 0.00 Thou/mm3 (0.00-0.00); Nucleated Red Blood Cell % 0 /100 WBC (0); Platelet Count 299 Thou/mm3 (140-440); RDW Standard Deviation 46.7 fL (36.4-46.3); Red Blood Count 3.61 Miln/mm3 (4.00-5.20); White Blood Count 12.5 Thou/mm3 (3.6-11.0)
[2025-03-08 15:22] LABS: Alanine Aminotransferase 12 U/L (10-49); Albumin, Serum 3.0 gm/dL (3.4-4.8); Albumin/Globulin Ratio 1.3 (1.2-2.2); Alkaline Phosphatase 123 U/L (46-116); Anion Gap 10 (7-16); Aspartate Amino Transferase 18 U/L (0-34); BUN/Creatinine Ratio 19 Ratio (12-20); Bilirubin,Total 0.2 mg/dL (0.3-1.2); Blood Urea Nitrogen 19 mg/dL (9-23); Calcium 9.2 mg/dL (8.3-10.6); Calcium (Corrected) 10.0 mg/dL (8.5-10.1); Carbon Dioxide 26.6 mMol/L (20.0-31.0); Chloride 105 mMol/L (98-107); Creatinine (Component) 1.0 mg/dL (0.6-1.3); Estimated Creatinine Clearance 30.0 mL/min (>60); Globulin 2.4 gm/dL (2.3-3.5); Glucose 117 mg/dL (74-106); Magnesium 1.6 mg/dL (1.6-2.6); Osmolality,Calculated 286 (275-295); Phosphorous 2.8 mg/dL (2.4-5.1); Potassium 4.4 mMol/L (3.4-5.1); Sodium 142 mMol/L (136-145); Total Protein 5.4 gm/dL (5.7-8.2); eGFR 56 See Note
--- NOTE | 2025-03-08 19:27 | PC.NURSE ---
Report given to [facility] [employer] [facility] [employer] @[id number]
== END 2025-03-08 15:35 | disposition skilled nursing facility (03) | DRG 871 ==
LOC: SERX 15:21 → SERHOLD 16:00 → S3NX 17:47 → S2SX 02-28 05:05 → S2NX 03-01 06:50 → S3SX 03-07 23:50
PROVIDERS: Specialist; Admitting Provider Student in an Organized Health Care Education/Training Program; Emergency Provider Emergency Medicine; PCP Physician Assistant; Visit Provider Internal Medicine
PROC: 0DH63UZ Insertion of Feeding Device into Stomach, Percutaneous Approach (ICD-10-PCS; CPT 43246; principal; 2025-03-06 14:30)
DX: A41.51 Sepsis due to Escherichia coli [E. coli] (principal); G93.41 Metabolic encephalopathy; N39.0 Urinary tract infection, site not specified; F03.C11 Unspecified dementia, severe, with agitation; E87.0 Hyperosmolality and hypernatremia; N17.9 Acute kidney failure, unspecified; I24.89 Other forms of acute ischemic heart disease; I48.4 Atypical atrial flutter; Z68.1 Body mass index [BMI] 19.9 or less, adult; E87.1 Hypo-osmolality and hyponatremia; E87.20 Acidosis, unspecified; I47.21 Torsades de pointes; G89.4 Chronic pain syndrome; F32.A Depression, unspecified; H40.9 Unspecified glaucoma; K52.9 Noninfective gastroenteritis and colitis, unspecified; I10 Essential (primary) hypertension; E78.5 Hyperlipidemia, unspecified; E55.9 Vitamin D deficiency, unspecified; I95.89 Other hypotension; R45.1 Restlessness and agitation; Z85.038 Personal history of other malignant neoplasm of large intestine; R62.7 Adult failure to thrive; B96.89 Other specified bacterial agents as the cause of diseases classified elsewhere; E26.9 Hyperaldosteronism, unspecified; E86.0 Dehydration; E87.8 Other disorders of electrolyte and fluid balance, not elsewhere classified; I35.8 Other nonrheumatic aortic valve disorders; I48.0 Paroxysmal atrial fibrillation; Z66 Do not resuscitate; Z78.1 Physical restraint status; Z79.899 Other long term (current) drug therapy; Z87.891 Personal history of nicotine dependence; Z90.710 Acquired absence of both cervix and uterus; Z91.81 History of falling; Z93.1 Gastrostomy status
CPT/HCPCS: 36415; 70450; 71045; 74018; 80051; 80053; 80069; 80307; 80320; 81001; 82088; 82140; 82803; 83605; 83735; 83880; 84100; 84132; 84145; 84244; 84295; 84443; 84484; 85025; 85610; 85730; 86850; 86900; 86901; 87040; 87077; 87086; 87186; 92526; 92610; 93005; 93225; 93306; 96361; 96365; 96375; 99285; A4314; A4649; J0283; J0696; J1200; J1630; J2060; J2250; J3010; J3475; J3480; J3490; J7030; J7050; J7070; J7999; A9270; G0480

== ENCOUNTER 2025-03-24 08:12 | Inpatient (IN) | payer MEDICARE, BC, SELFPAY ==
[2025-03-24] VITALS (13 sets, daily range): BP systolic 100–117; BP diastolic 49–59; PULSE 64–121; RESP 14–30; TEMP 36.1–38.3; O2SAT 90–100; BMI 14.7
--- NOTE | 2025-03-24 09:02 | EKG_ITS ---
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: : 1940 Requested By: Sayda Mar Order Number: [id number] Reading MD: Sayda Mar Measurements Intervals [place] Rate: 123 P: 72 NH: 152 QRS: 33 QRSD: 74 T: 85 QT: 337 QTc: 483 Interpretive Statements SINUS TACHYCARDIA LOW QRS VOLTAGE IN PRECORDIAL LEADS [QRS DEFLECTION < 1.0 mV IN CHEST LEADS] ST DEVIATION AND MODERATE T-WAVE ABNORMALITY, CONSIDER ANTEROLATERAL ISCHEMIA [-0.1+ mV T-WAVE IN V3-V6] Compared to ECG 03/05/2025 08:01:38 Low QRS voltage now present Atrial fibrillation no longer present T-wave abnormality still present Possible ischemia still present /store/S0/[id number]
--- NOTE | 2025-03-24 09:04 | EDNOTE_ITS ---
ED Weakness RME/HPI General Chief complaint: GI Bleed Stated complaint: VOMITING Time Seen by Provider: 03/24/25 08:32 Arrival date/time: 03/24/25 08:12 RME / HPI RME / HPI Narrative: 85 year old female with history of dementia, paroxysmal atrial fibrillation, hypertension, diabetes, hyperllipidemia, ulcerative colitis, prior colon cancer, s/p PEG tube presents to the ED BIBA from [facility] for evaluation of vomiting coffee ground emesis x3 today. In the ED, the patient appears altered and does not respond to questions. Related Data Previous Rx's ?Medication ?Instructions ?Recorded amiodarone 200 mg tablet 200 mg feeding tube BID 1 mo nth 03/08/25 #60 tabs multivitamin 1 tab feeding tube QDAY #30 tabs 03/08/25 quetiapine 25 mg tablet (Seroquel) 25 mg feeding tube ONCE HS PRN 03/08/25 agitation 1 month #30 tabs Allergies Allergy/AdvReac Type Severity Reaction Status Date / Time No Known Allergies Allergy Verified 03/24/25 08:45 Review of Systems Review of Systems ROS Unobtainable: unobtainable due to mental status Past Medical History Past Medical History NEUROLOGIC: Positive Alzheimer's Disease CARDIAC: Positive Cardiac Disorders and Hypercholesterolemia GASTROINTESTINAL: Positive Gastrointestinal Disorders, Gastrointestinal Bleed, Colitis, Colorectal Cancer and Gastroesophageal Reflux Disease REPRODUCTIVE: Positive Previous Pregnancies MUSCULOSKELETAL: Positive Musculoskeletal Disorders, Arthritis and Carpal Tunnel Syndrome ENT: Positive Cataracts PSYCHO/SOCIAL: Positive Depression and Anxiety OTHER HISTORY: Positive Falls, Chicken Pox, Measles, Mumps, Cancer and Colorectal Cancer Surgical History SURGICAL: Positive Eye Surgery, Tonsillectomy, Abdominal Surgery, Bowel Surgery and Hysterectomy Social History SMOKING STATUS: Never smoker SECOND HAND EXPOSURE: No SUBSTANCE USE: does not use ED Exam Narrative Physical exam: GENERAL APPEARANCE: Tremulous with a grimace, laying on her side, appears unwell, not answering questions, awake HEENT: Normocephalic, atraumatic; pupils equal, round, reactive to light; EOMI; mucous membranes pink, moist; oropharynx clear NECK: Supple LUNGS: CTABL; no wheezes, no rales, no rhonchi HEART: Tachycardic; normal S1, S2; no murmurs ABDOMEN: non distended; normal BS; soft, no tenderness, no guarding, no rebound; no masses, no organomegaly, no hernia BACK: no CVA tenderness EXTREMITIES: atraumatic; no edema NEUROLOGIC: awake; cranial nerves II-XII grossly intact PSYCHIATRIC: appropriate mood and affect SKIN: warm, dry, normal color; no rashes Course Course Course Narrative: 1020: Labs still not drawn 1128: Labs are still not drawn Quality Measures Current suspected stage: sepsis Possible source: pulmonary Blood cultures or dered: completed in ED Antibiotic ordered: Yes Pertinent labs: 03/24/25 11:46 Lactic Acid 2.3 H mMol/L (0.4-2.0) Procalcitonin 0.62 H ng/ml (0.0-0.49) sepsis Orders Category Date Time Status Bedside COVID-19 Antigen Test NOW Care 03/24/25 09:05 Active Bedside Influenza A&B Antigen Test NOW Care 03/24/25 09:05 Completed Investment Recovery Technician NOW Care 03/24/25 09:02 Active EKG (ED ONLY) *Do not use* NOW Care 03/24/25 09:02 Completed EKG (ED Only) Stat Exams 03/24/25 09:02 Draft XR chest 1V portable Stat Exams 03/24/25 09:02 Completed B-Type Natriuretic Peptide Stat Lab 03/24/25 11:46 Completed Blood Culture (Lab) Stat Lab 03/24/25 10:30 Received CBC Stat Lab 03/24/25 11:46 Completed Comprehensive Metabolic Panel Stat Lab 03/24/25 11:46 Completed Lactate (Lactic Acid) Stat Lab 03/24/25 11:46 Completed Lipase Stat Lab 03/24/25 11:46 Completed Magnesium Stat Lab 03/24/25 11:46 Completed Partial Thromboplastin Time Stat Lab 03/24/25 11:46 Completed Procalcitonin Stat Lab 03/24/25 11:46 Completed Prothrombin Time with INR Stat Lab 03/24/25 11:46 Completed Troponin I Stat Lab 03/24/25 11:46 Completed Urinalysis Stat Lab 03/24/25 09:54 Completed Urine Culture Stat Lab 03/24/25 09:54 Received Acetaminophen Supp [Tylenol Supp] Med 03/24/25 09:02 Discontinued 650 mg NH X1 ONE Azithromycin Inj [Zithromax Inj] 500 mg Med 03/24/25 11:38 Discontinued Sodium Chloride 0.9% 250 ml [Ns] 250 ml IV X1 Pantoprazole Inj [Protonix Inj] Med 03/24/25 10:00 Discontinued 80 mg IVP X1 ONE Sodium Chloride 0.9% 1000 ml [Ns] 1,000 ml Med 03/24/25 09:02 Discontinued IV 999 mls/hr Sodium Chloride 0.9% 1000 ml [Ns] 1,000 ml Med 03/24/25 12:36 Discontinued IV 999 mls/hr cefTRIAXone/D5w 1gm IV premix [Rocephin/D5w 1gm IV Med 03/24/25 11:38 Discontinued premix] 1 gm in 50 ml IV X1 Vital Signs Vital signs: Vital Signs Temperature 101 F H 03/24/25 08:46 Pulse Rate 118 H 03/24/25 08:46 Respiratory Rate 28 H 03/24/25 08:46 Blood Pressure 117/52 L 03/24/25 08:46 Pulse Oximetry (%) 90 L 03/24/25 08:46 Oxygen Delivery Method Room Air 03/24/25 08:46 Weakness MDM Narrative MDM Narrative:: Claire Low am scribing for and in the presence of Dr. Fajardo. Patient data External records reviewed:: [facility] previous records (I reviewed admission from 02/27/2025 through 03/08/2025 ), EMS form and [facility] records (I reviewed medication list and pmhx from SNF ) Clinical information provided by:: EMS Social determinants that could affect healthcare access:: housing ([place] ) Patient has the following chronic illnesses:: dementia, paroxysmal atrial fibrillation, hypertension, diabetes, hyper llipidemia, ulcerative colitis, prior colon cancer, s/p PEG tube How is presenting disease/condition affected by chronic disease/condition?: exacerbated by Evaluation data The following diagnostics were reviewed and interpreted by me:: lab results, radiology exam(s) and EKG tracing(s) (03/24/2025 @ 09:29 AM. Sinus tachycardia, rate 123, moderate baseline wander, moderate artifact, no acute ischemic changes, flattening of the ST segments diffuse leads ) Lab and/or radiology exams considered but not ordered:: None Interpretation Summary: Ordering Physician: Sayda Fajardo MD Date of Service: 03/24/25 Procedure(s): XR chest 1V portable Accession Number(s): [id number] cc: Aries Lentz MD; Sayda Fajardo MD~ Examination: AP chest single view Technique one AP portable upright chest single view Date and time: March 24, 2025 0923 hours, comparison March 03, 2025 INDICATIONS: Chest pain today. FINDINGS: Significant diffuse right lung pneumonia. Mild prominence left ventricle Prominent osteopenia IMPRESSION: Significant diffuse right lung pneumonia Dictated By: Aries Lentz MD Signed By: <Electronically signed by Aries Lentz MD in OV> 03/24/25 1010 Medications / Prescriptions Medications or Prescriptions considered but not ordered:: None Medication administrations:: Medication Administration History Acetaminophen (Acetaminophen Supp 650 Mg Supp) 650 mg NH Q6H PRN PRN Reason: PAIN SCALE 1-3 (mild Stop: 04/23/25 14:49 Dextrose/Sodium Chloride (D5-1/2ns) 1,000 mls @ 45 mls/hr IV .[id number] LORNE Stop: 04/23/25 14:44 Last Admin: 03/24/25 15:36 Dose: 45 mls/hr Documented By: ROYAL Ondansetron HCl (Ondansetron Inj 2 Mg/Ml Inj 2 Ml) 4 mg IVP Q6H PRN; Protocol PRN Reason: NAUSEA OR VOMITING Stop: 04/23/25 14:49 Discontinued Medications Acetaminophen (Acetaminophen Supp 650 Mg Supp) 650 mg NH X1 ONE Stop: 03/24/25 09:03 Last Admin: 03/24/25 09:31 Dose: 650 mg Documented By: ROYAL Hydrocodone Bitart/Acetaminophen (Hydrocodone/Apap 5/325 Tablet) 1 tab PO Q4HR PRN PRN Reason: PAIN SCALE 4-6 (Moderate Stop: 03/29/25 14:49 Sodium Chloride (Ns) 1,000 mls @ 999 mls/hr IV .Q1H1M ONE Stop: 03/24/25 10:02 Last Infusion: 03/24/25 10:43 Dose: Infused Documented By: Admin: 03/24/25 09:32 Dose: 999 mls/hr Documented By: ROYAL Azithromycin 500 mg/ Sodium (Chloride) 250 mls @ 250 mls/hr IV X1 ONE Stop: 03/24/25 12:37 Last Infusion: 03/24/25 15:12 Dose: Infused Documented By: Admin: 03/24/25 13:50 Dose: 250 mls/hr Documented By: ROYAL Ceftriaxone Sodium/Dextrose (Rocephin/D5w 1gm Iv Premix) 1 gm in 50 mls @ 100 mls/hr IV X1 ONE Stop: 03/24/25 12:07 Last Infusion: 03/24/25 13:49 Dose: Infused Documented By: Admin: 03/24/25 13:04 Dose: 100 mls/hr Documented By: ROYAL Sodium Chloride (Ns) 1,000 mls @ 999 mls/hr IV .Q1H1M ONE Stop: 03/24/25 13:36 Last Infusion: 03/24/25 15:13 Dose: Infused Documented By: Admin: 03/24/25 13:04 Dose: 999 mls/hr Documented By: ROYAL Pantoprazole Sodium (Pantoprazole Inj 40 Mg Vial) 80 mg IVP X1 ONE Stop: 03/24/25 10:01 Last Admin: 03/24/25 10:40 Dose: 80 mg Documented By: ROYAL Sodium Chloride (Sodium Chloride Rt 10% 15 Ml Nebu) 5 ml INH X1 ONE Stop: 03/24/25 15:12 See above Consultations Consultation(s) initiated? (list below): Yes Consultation #1 (Physician, Specialty, Details): Spoke with hospitalist team C regarding admission Discussed patients PMHx, HPI, ED course, exam findings, labs, and radiology results. The hospitalist agree to accept the patient for admission. Diagnosis Weakness Differential Diagnosis: anemia, hypothyroidism, sepsis and dehydration Most likely diagnosis given after review of the tests above:: Pneumonia Sepsis Admission Indicated Admission indicated?: indicated Admission Request Was there a request for admission?: Yes Admission Attestation Admission request attestation: Discussed case with [] from Hospitalist service regarding admission. Discussed patients ED course, exam findings, labs, and radiology results. The Hospitalist [agrees,declines] to accept the patient for admission. Disposition Plan Disposition Plan: Admit Critical Care Time Critical Care Time Critical Care Time: Yes Total Critical Care Time (min.): 35 Attestation: The high probability of sudden, clinically significant deterioration in the patient's condition required the highest level of my preparedness to intervene urgently. The services I provided to this patient were to treat and/or prevent clinically significant deterioration. Services included the following: chart data review, reviewing nursing notes and/or old charts, documentation time, practice management consultant collaboration regarding findings and treatment options, medication orders and management, direct patient care, vital sign assessments and ordering, interpreting and reviewing diagnostic studies and lab tests. Aggregate critical care time includes only time during which I was engaged in work directly related to the patient's care, as described above, whether at bedside or elsewhere in the Emergency Department. It did not include time spent performing other reported procedures or the services of residents, students, nurses or physician assistants. Discharge Plan Plan Patient Disposition: Admit Acute Care w/in Hospital Problem List Clinical Impression: Pneumonia, Sepsis
[2025-03-24] MEDS: ACETAMINOPHEN SUPP 650 MG SUPP PR (09:31)
[2025-03-24] MEDS: SODIUM CHLORIDE 0.9% 1000 ML 1,000 ML 999 ML IV ×2 (09:32→13:04)
[2025-03-24 10:06] LABS: Collection Type, Urine Clean Catch
[2025-03-24 10:26] LABS: Amorphous Crystals,Urine Present (Absent); Bacteria,Urine Rare; Bilirubin,Urine Negative (Negative); Blood,Urine Negative (Negative); Color,Urine Yellow (Lt Yel-Yel); Glucose, Urine Negative (Negative); Ketones,Urine Negative (Negative); Leukocyte Esterase,Urine Negative (Negative); Nitrite,Urine Negative (Negative); PH,Urine 5.5 (5.0-7.0); Protein,Urine 1+ (Neg - Trace); RBC,Urine 5 /hpf (0-3); Specific Gravity,Urine 1.018 (1.001-1.035); Squamous Epithelial Cell,Urine < 1 /hpf (0-5); Urobilinogen,Urine 3.0 mg/dL (0.0-1.0); WBC,Urine 2 /hpf (0-5)
[2025-03-24 10:31] LABS: Clarity,Urine Hazy (Clear/Hazy)
[2025-03-24 12:01] LABS: Lactate (Lactic Acid) 2.3 mMol/L (0.4-2.0)
[2025-03-24 12:04] LABS: Basophils # (Auto) 0.1 Thou/mm3 (0.0-0.2); Basophils % (Auto) 0 % (0-2.5); Eosinophils # (Auto) 0.0 Thou/mm3 (0.0-0.5); Eosinophils % (Auto) 0 % (0-10); Hematocrit 27.5 % (36.0-46.0); Immature Granulocytes Auto 0.52 Thou/mm3 (0.00-0.00); Lymphocytes # (Auto) 0.4 Thou/mm3 (1.0-4.8); Lymphocytes % (Auto) 2 % (10-50); Mean Corpuscular HGB Conc 31.6 g/dl (31.0-37.0); Mean Corpuscular Hemoglobin 27.5 pg (25.0-35.0); Mean Corpuscular Volume 87 fL (80-100); Monocytes # (Auto) 0.6 Thou/mm3 (0.0-0.8); Monocytes % (Auto) 2 % (0-12); Neutrophils # (Auto) 25.4 Thou/mm3 (1.8-7.7); Neutrophils % (Auto) 94 % (37-80); Nucleated Red Blood Cell # 0.05 Thou/mm3 (0.00-0.00); Nucleated Red Blood Cell % 0 /100 WBC (0); Platelet Count 598 Thou/mm3 (140-440); RDW Standard Deviation 46.3 fL (36.4-46.3); Red Blood Count 3.16 Miln/mm3 (4.00-5.20); White Blood Count 27.1 Thou/mm3 (3.6-11.0)
[2025-03-24 12:25] LABS: B-Type Natriuretic Peptide 268 pg/mL (0-100)
[2025-03-24 12:30] LABS: Hemoglobin 8.7 g/dL (12.0-16.0); INR 1.1 (0.9-1.3); Partial Thromboplastin Time 23.9 Seconds (22.0-36.0); Prothrombin Time 11.9 Seconds (9.0-12.2)
[2025-03-24 12:33] LABS: Alanine Aminotransferase 30 U/L (10-49); Albumin, Serum 3.0 gm/dL (3.4-4.8); Albumin/Globulin Ratio 1.2 (1.2-2.2); Alkaline Phosphatase 198 U/L (46-116); Anion Gap 16 (7-16); Aspartate Amino Transferase 29 U/L (0-34); BUN/Creatinine Ratio 36 Ratio (12-20); Bilirubin,Total 0.4 mg/dL (0.3-1.2); Blood Urea Nitrogen 57 mg/dL (9-23); Calcium 9.1 mg/dL (8.3-10.6); Calcium (Corrected) 9.9 mg/dL (8.5-10.1); Carbon Dioxide 22.2 mMol/L (20.0-31.0); Chloride 111 mMol/L (98-107); Creatinine (Component) 1.6 mg/dL (0.6-1.3); Estimated Creatinine Clearance 16.1 mL/min (>60); Globulin 2.5 gm/dL (2.3-3.5); Glucose 113 mg/dL (74-106); Lipase 21 U/L (12-53); Magnesium 2.1 mg/dL (1.6-2.6); Osmolality,Calculated 312 (275-295); Potassium 3.8 mMol/L (3.4-5.1); Procalcitonin 0.62 ng/ml (0.0-0.49); Sodium 149 mMol/L (136-145); Total Protein 5.5 gm/dL (5.7-8.2); Troponin I 0.041 ng/mL (0.0-0.045); eGFR 32 See Note
[2025-03-24] MEDS: cefTRIAXone/D5w 1gm IV premix 1 GM/50 ML BAG IV (13:04)
[2025-03-24] MEDS: AZITHROMYCIN INJ 500 MG in SODIUM CHLORIDE 0.9% 250 ML 250 ML 250 MG IV (13:50)
[2025-03-24 14:59] LABS: Reflex Lactate? Y
[2025-03-24] MEDS: DEXTROSE 5%-0.45% NS 1,000 ML 45 ML IV (15:36)
--- NOTE | 2025-03-24 15:41 | PC.RT ---
AWARE PT IS UNABLE TO FOLLOW DIRECTIONS FOR SPUTUM SAMPLE BUT WANTS TO KEEP ORDER ACTIVE AT THIS TIME
[2025-03-24 15:42] LABS: Lactic Acid, 3 HR 2.6 mMol/L (0.4-2.0)
--- NOTE | 2025-03-24 15:56 | PD.ADDHP ---
Addendum History & Physical Addendum Date of report being addended: 03/24/25 Narrative: Attending attestation I reviewed labs, imaging, EKG, home medications and prior available records. Face to face evaluation was performed by me. I have personally examined the patient and discussed assessment and plan with the IM team. I reviewed the resident note and agree with the plan with exceptions as below. Acute hypoxic respiratory failure Sepsis secondary to right lower lobe pneumonia Upper GI bleed LU, likely prerenal Leukocytosis Dementia status post PEG tube Hypernatremia Started ceftriaxone/azithromycin Started IV fluids at low rate given the low weight Monitor BP Trend WBC Follow-up cultures Monitor kidney function. Avoid nephrotoxins. Renally dosed medications Monitor sodium level Keep the patient n.p.o. PPI twice daily IV Consult GI for possible EGD
--- NOTE | 2025-03-24 17:01 | PC.NURSE ---
Patient presents to ED from [facility] with c/o x1 episode of coffee ground emesis per staff. Patient in breif that was soiled. Noted small open sores to vaginal area x3 noted nonblanchable redness to buttock. Patient follows commands, nonverbal and attempting to grab staff and continues to pull on nasal cannula and pulse oximetry.
--- NOTE | 2025-03-24 18:04 | PC.NURSE ---
Report given Shara FUNEZ patient transferring to room 266.
--- NOTE | 2025-03-24 19:19 | PC.NURSE ---
Addendum entered by Shara Tenorio RN 03/24/25 19:26: Pt 3 star fall risk, bed locked in lowest position, call light within reach. Bed alarm turned on. Original Note: Pt arrived to the unit, altered, non verbal which is pts baseline per DESIGN TECHNICIAN in report. Pt on room air. skin tear noted to left arm, left shoulder, abrasions to bilateral knees, abrasions to jacey area. Blanchable redness to coccyx, and bilateral knees. Vital signs stable, placed pt on the technical marketing consultant and connected pt to IV fluids as ordered.
--- NOTE | 2025-03-24 20:31 | ESHP_ITS ---
<Statement entered by Kendell Thompson MD - 03/24/25 21:24> Deyanira Thao is an 85-year-old female with a history of dementia, hypertension, colon cancer, and a-fib on amiodarone, and PEG tube for long-term feeding support who presents from [facility] for evaluation of coffee-ground emesis. Upon arrival, vitals showed pulse of 118, RR of 28, fever of 101 ?F, and saturating 100% on room air. Leukocytosis of 27, hemoglobin 8.7 (baseline 11-12), thrombocytosis of 598, Pro-Rob 0.62, lactate 2.3, LU with creatinine 1.6 (baseline 1.0), and sodium of 149. UA without signs of infection. CXR showed right-sided pneumonia and EKG with significant artifact but tachycardic at heart rate of 123. Admitted for sepsis secondary to pneumonia and will be started on ceftriaxone and azithromycin, will follow-up cultures, low-grade IVF, and monitor oxygen requirements. Additionally, will consult GI given report of coffee-ground emesis and decreased hemoglobin relative to baseline with elevated BUN and started on PPI BID. ----- Note reviewed and agree with care plan as documented. Please refer to the note below for further details. Plan discussed with attending physician Dr. Michelle Thompson MD PGY-2 Internal Medicine Documentation for date of: 03/24/25 HPI History of Present Illness History of present illness: 85 year old female with history of dementia, paroxysmal atrial fibrillation, hypertension, diabetes, hyperllipidemia, ulcerative colitis, prior colon cancer, s/p PEG tube presented to [facility] from [facility] for evaluation of vomiting coffee ground emesis with strong odors x3 today. Pt was altered at time of this examination, and not responding to questions asked from her. history gathered from chart review. Unable to obtain full history at this time. Per nurse, is the primary decision maker for the patient who is absent at the time of this interview. ED Course Chest x-ray revealed diffuse right lung pneumonia, and patient was given ceftriaxone IV [address] azithromycin IV 500 mg x 1 in the ED. Also given Protonix IVP 80 mg x 1 and bolus NS 1 L. WBC 27.1, Hgb 8.7, NA 149, BUN 57, CR 1.6, eGFR 32, glucose 113, LA 2.6 Meds: Amiodarone HCl oral tablet 200 mg twice daily, Pro-Stat 30 mL via G-tube 1 time a day, ferrous sulfate oral tablet 325 mg, Dulcolax rectal Suppository 10 mg as needed constipation, acetaminophen 325 mg 2 tabs as needed mild pain, milk of magnesia 1.2 g every 8 hours as needed, enema. Past Medical History * Colitis * Glaucoma * Depression * Dementia * Chronic pelvic pain syndrome * Left nephrolithiasis Social History (obtained from ER note) * Social history negative for tobacco, alcohol, or substance use. Surgical History (obtained from ER note) * abdominal hysterectomy (1976) * colon cancer surgery (1986) * left ovarian surgery (1986) * back surgeries (2008, 2013) * right eye cataract surgery (2011) * left eye cataract surgery (2014) * total hip surgery (2015) Exam Vital Signs Temp Pulse Resp BP Pulse Ox O2 Del Method O2 Flow Rate 97.6 F 95 23 H 110/59 L 94 L Room Air 2 03/24/25 18:43 03/24/25 18:43 03/24/25 18:43 03/24/25 18:43 03/24/25 18:43 03/24/25 18:43 03/24/25 15:43 Narrative Exam General: Patient malnourished and disheveled. Tremulous awake, but not answering questions Skin: Intact, Warm, no rashes. HEENT: Normocephalic, Atraumatic. Normal neck range of motion, Supple. Trachea midline. Respiratory: Rt lower lobe crackles. Breath sounds are equal bilaterally with equal chest expansion. Cardiovascular: tachycardic, normal S1, S2, No murmurs. Distal pulses 2+ Abdomen: Abdomen soft, non-distended, without erythema, or lesions. Normotensive bowel sounds x4. Percussion tympanic. Palpation nontender in all four quadrants. No organomagely. No guarding or rebound present. Musculoskeletal/Extremities: No erythema, swelling, tenderness of any joints. No edema of BLE. DP pulses +2/3 b/l. Full active ROM of all four extremities. Neurologic: NEURO: awake, cranial nerves II to XII grossly intact. Results: Labs 03/25/25 05:25 03/25/25 05:25 Labs: Short CBC 03/24/25 Range/Units 11:46 WBC 27.1 H (3.6-11.0) Thou/mm3 Hgb 8.7 L (12.0-16.0) g/dL Hct 27.5 L (36.0-46.0) % Plt Count 598 H D (140-440) Thou/mm3 BMP 03/24/25 11:46 Sodium 149 H Potassium 3.8 Chloride 111 H Carbon Dioxide 22.2 BUN 57 H Creatinine 1.6 H Glucose 113 H Calcium 9.1 Cardiac Enzymes 03/24/25 Range/Units 11:46 Troponin I 0.041 (0.0-0.045) ng/mL Liver Function 03/24/25 Range/Units 11:46 Total Bilirubin 0.4 (0.3-1.2) mg/dL AST 29 (0-34) U/L ALT 30 (10-49) U/L Alkaline Phosphatase 198 H (46-116) U/L Albumin 3.0 L (3.4-4.8) gm/dL Urine 03/24/25 Range/Units 09:54 Urine Color Yellow (Lt Yel-Yel) Urine Clarity Hazy (Clear/Hazy) Urine pH 5.5 (5.0-7.0) Ur Specific [place] 1.018 (1.001-1.035) Urine Protein 1+ A (Neg - Trace) Urine Glucose (UA) Negative (Negative) Quality Measures Quality Measures sepsis Current suspected stage: sepsis Possible source: pulmonary Blood cultures ordered: completed in ED Antibiotic ordered: Yes Advance care planning discussed with:: patient Medications Home Medications and Allergies Home Medications ?Medication ?Instructions ?Recorded ?Confirmed ?Type ferrous sulfate 325 mg (65 mg 325 mg feeding tube QDAY 03/24/25 03/24/25 History iron) tablet (Gil-Time) Allergies Allergy/AdvReac Type Severity Reaction Status Date / Time No Known Allergies Allergy Verified 03/24/25 08:45 Visit Medications Acetaminophen (Acetaminophen Supp 650 Mg Supp) 650 mg VT Q6H PRN PRN Reason: PAIN SCALE 1-3 (mild Stop: 04/23/25 14:49 Dextrose/Sodium Chloride (D5-1/2ns) 1,000 mls @ 45 mls/hr IV .[id number] LORNE Stop: 04/23/25 14:44 Last Admin: 03/24/25 15:36 Dose: 45 mls/hr Azithromycin 250 mg/ Sterile (Water 2.5 ml/ Sodium Chloride) 252.5 mls @ 252.5 mls/hr IV QDAY LORNE Stop: 04/01/25 10:59 Ceftriaxone Sodium/Dextrose (Rocephin/D5w 1gm Iv Premix) 1 gm in 50 mls @ 100 mls/hr IV QDAY LORNE Stop: 04/01/25 16:04 Ondansetron HCl (Ondansetron Inj 2 Mg/Ml Inj 2 Ml) 4 mg IVP Q6H PRN; Protocol PRN Reason: NAUSEA OR VOMITING Stop: 04/23/25 14:49 Discontinued Medications Acetaminophen (Acetaminophen Supp 650 Mg Supp) 650 mg VT X1 ONE Stop: 03/24/25 09:03 Last Admin: 03/24/25 09:31 Dose: 650 mg Hydrocodone Bitart/Acetaminophen (Hydrocodone/Apap 5/325 Tablet) 1 tab PO Q4HR PRN PRN Reason: PAIN SCALE 4-6 (Moderate Stop: 03/29/25 14:49 Sodium Chloride (Ns) 1,000 mls @ 999 mls/hr IV .Q1H1M ONE Stop: 03/24/25 10:02 Last Infusion: 03/24/25 10:43 Dose: Infused Azithromycin 500 mg/ Sodium (Chloride) 250 mls @ 250 mls/hr IV X1 ONE Stop: 03/24/25 12:37 Last Infusion: 03/24/25 15:12 Dose: Infused Ceftriaxone Sodium/Dextrose (Rocephin/D5w 1gm Iv Premix) 1 gm in 50 mls @ 100 mls/hr IV X1 ONE Stop: 03/24/25 12:07 Last Infusion: 03/24/25 13:49 Dose: Infused Sodium Chloride (Ns) 1,000 mls @ 999 mls/hr IV .Q1H1M ONE Stop: 03/24/25 13:36 Last Infusion: 03/24/25 15:13 Dose: Infused Pantoprazole Sodium (Pantoprazole Inj 40 Mg Vial) 80 mg IVP X1 ONE Stop: 03/24/25 10:01 Last Admin: 03/24/25 10:40 Dose: 80 mg Sodium Chloride (Sodium Chloride Rt 10% 15 Ml Nebu) 5 ml INH X1 ONE Stop: 03/24/25 15:12 Assessment & Plan Plan 85 year old female with history of dementia, paroxysmal atrial fibrillation, hypertension, diabetes, hyperllipidemia, ulcerative colitis, prior colon cancer, s/p PEG tube presented to [facility] from [facility] for evaluation of vomiting coffee ground emesis with strong odors x3 on 03/24/2025. Patient was admitted to telemetry for blood workup and treatment of GI bleed sepsis 2/2 pneumonia. #Acute hypoxic respiratory failure #Sepsis secondary to right lower lobe pneumonia #Leukocytosis #Delirium 2/2 Sepsis #hx of E. coli bacteremia sensitive to ceftriaxone #UTI, ruled out CXR significant for diffuse right lung pneumonia UA WBC 2, Leukocyte esterase negative, rare urine bacteria. Clinical picture meets 3/4 SIRS criteria: T 96.9 (>100.9 or <96.8F), RR 23 (>20/min), HR 121 (>90/min), WBC 27.1 (>12 or <4K or Bands >10%). LA 2.6 (>2), and pneumonia as a source of infection =Severe Sepsis qSOFA 2 CURB-65 score 4: high risk of mortality from CAP warranting inpatient treatment. - Started ceftriaxone IV 1g QD and azithromycin IV 250mg QD - Monitor CBC daily; trend WBC. - F/U blood ctx, urine ctx - Monitor vital signs closely. - Maintain MAP > 65 mmHg. #Upper GI bleed #s/p PEG tube PEG tube placed 02/[address] Montes. Maria Esther-Blatchford bleeding score 15: patient at high risk for GI bleed AIMS65 score: 2: 5.3% risk of in-hospital mortality from upper GI bleed Plan: -GI Dr Montes consulted, appreciate recs -pending EGD, scheduled for 03/25 tentatively -Serial CBC -Transfuse if Hgb <7g -IV Protonix 40mg bid #LU, likely prerenal #Hypernatremia BUN 57 (base <24), Cr 1.6 (base 1.1), Na 149 BUN/Cr ratio of 36. Dry mucosa on physical exam. - D5 in 0.5NS IV 45ml/h - Monitor renal function and urine output. - Renal dose med, avoid nephrotoxin. #Dementia status post PEG tube #Encephalopathy Progressive confusion and weakness over the past year. Plan: - Resume donepezil 10mg PO QD once mentation imrpoves. Unknown if pt taking Donepezil, Memantine, or Fluoxetine at home. #hx of Paroxysmal atrial flutter and fibrillation. EKG (03/24) showed sinus tachycardia, T wave abnormality consistent with previous EKG. Troponin I .041 CHADS-VASC score estimated at 4. TTE: LVEF 55%. Normal LV, RV size and function. Mild-moderate MR with anterior mitral leaflet thickening. Aortic valve sclerosis. Mild TR, Trace VT Patient has a CHADSVASC of 4, but due to dementia, failure to thrive, generalized weakness and falls, the risk of anticoagulation outweighs the benefits. Plan: - Continue Amiodarone 200 mg PEG tube BID - pending repeat EKG - Continuous telemetry monitoring. - consider cardiology consult #Failure to thrive BMI 14.8 Previously, had failed swallow screen. #History of glaucoma #Chronic pelvic pain syndrome -[place] 10-325 PRN This case was discussed with my attending physician, Dr. Martinez, and senior resident, Dr Donna Lozano. Shelton Jimenez, DO PGY I Health Maintenance: DVT prophylaxis: SCDs GI prophylaxis: Protonix IV40mg bid Diet: PEG tube feeds Lines: Peripheral IV, velazquez cath Code status: Limited Code Attending Provider Attestation/Addendum I reviewed labs, imaging, EKG, home medications and prior available records. Face to face evaluation was performed by me. I have personally examined the patient and discussed assessment and plan with the IM team. I reviewed the resident note and agree with the plan with exceptions as below. Acute hypoxic respiratory failure Sepsis secondary to right lower lobe pneumonia Upper GI bleed LU, likely prerenal Leukocytosis Dementia status post PEG tube Hypernatremia Started ceftriaxone/azithromycin Started IV fluids at low rate given the low weight Monitor BP Trend WBC Follow-up cultures Monitor kidney function. Avoid nephrotoxins. Renally dosed medications Monitor sodium level Keep the patient n.p.o. PPI twice daily IV Consult GI for possible EGD
--- NOTE | 2025-03-24 21:24 | ESCONSULT_ITS ---
HPI Data of Consult Requesting Physician: Brent Martinez MD Primary Care Provider: Physician No Primary/Family Consult Narrative Reason for consult: Coffee-ground hematemesis posthemorrhagic anemia H&H 8.7 and 27.5 History of present illness: 85 years old female transferred from SNF for coffee-ground hematemesis x 3 Presenting hemoglobin hematocrit was 11.9 and 37.1 which has gone down to 8.7 and 27.5 with a platelet count of 5 98,000 and BUN/creatinine 57 and 1.6 Patient does have a history of essential hypertension paroxysmal atrial fibrillation diabetes mellitus type 2 hyperlipidemia and history of UC cc:: cc: Brent Martinez MD Review of Systems Review of Systems Systems Reviewed: All systems reviewed, normal except as documented Meds Home Medications and Allergies Home Medications ?Medication ?Instructions ?Recorded ?Confirmed ?Type ferrous sulfate 325 mg (65 mg 325 mg feeding tube QDAY 03/24/25 03/24/25 History iron) tablet (Gil-Time) Allergies Allergy/AdvReac Type Severity Reaction Status Date / Time No Known Allergies Allergy Verified 03/24/25 08:45 Exam Vital Signs Temp Pulse Resp BP Pulse Ox O2 Del Method O2 Flow Rate 96.9 F 96 22 H 100/53 L 95 Room Air 2 03/24/25 20:00 03/24/25 20:00 03/24/25 20:00 03/24/25 20:00 03/24/25 20:00 03/24/25 20:00 03/24/25 15:43 Constitutional Comments: Chronically ill-appearing Routine Respiratory Exam Comments: Normal to auscultation Routine Abdominal Exam Comments: PEG tube in place Results Labs 03/24/25 11:46 03/24/25 11:46 Labs: Short CBC 03/24/25 Range/Units 11:46 WBC 27.1 H (3.6-11.0) Thou/mm3 Hgb 8.7 L (12.0-16.0) g/dL Hct 27.5 L (36.0-46.0) % Plt Count 598 H D (140-440) Thou/mm3 BMP 03/24/25 11:46 Sodium 149 H Potassium 3.8 Chloride 111 H Carbon Dioxide 22.2 BUN 57 H Creatinine 1.6 H Glucose 113 H Calcium 9.1 Cardiac Enzymes 03/24/25 Range/Units 11:46 Troponin I 0.041 (0.0-0.045) ng/mL Liver Function 03/24/25 Range/Units 11:46 Total Bilirubin 0.4 (0.3-1.2) mg/dL AST 29 (0-34) U/L ALT 30 (10-49) U/L Alkaline Phosphatase 198 H (46-116) U/L Albumin 3.0 L (3.4-4.8) gm/dL Urine 03/24/25 Range/Units 09:54 Urine Color Yellow (Lt Yel-Yel) Urine Clarity Hazy (Clear/Hazy) Urine pH 5.5 (5.0-7.0) Ur Specific [place] 1.018 (1.001-1.035) Urine Protein 1+ A (Neg - Trace) Urine Glucose (UA) Negative (Negative) Assessment and Plan Additional Assessment & Plan Additional Plan: # Coffee-ground hematemesis could be the bleeding from the gastrostomy site with ulceration, possible peptic ulcer disease, possible Annie-Gardner tear # Postoperative anemia plan Fiberoptic esophagogastroduodenoscopy with possible therapeutic intervention possible biopsy under intravenous moderate sedation Consent will be obtained from the conservator and the patient has been scheduled tentatively for tomorrow Serial CBC Transfuse if the hemoglobin drops from 7 g IV Protonix Will follow the patient Other medical problems include Essential hypertension Paroxysmal atrial fibrillation Diabetes mellitus type 2 Questionable history of from the record review UC/colon carcinoma Thank you very much for the opportunity to participate in the care of this patient
[2025-03-25] VITALS (12 sets, daily range): BP systolic 78–118; BP diastolic 46–80; PULSE 87–137; RESP 15–25; TEMP 36.1–37.9; O2SAT 96–99; BMI 15.1
--- NOTE | 2025-03-25 00:41 | PC.NURSE ---
DR CUNHA NOTIFIED PT'S CARDIAC RHYTHM GOES FROM SR TO AFIB. 80-130'S. RECEIVED NEW ORDER.
[2025-03-25] MEDS: AMIODARONE HCL 200 MG TABLET GT ×3 (00:54→20:15)
--- NOTE | 2025-03-25 04:38 | PC.NURSE ---
[facility] 0200 [facility] 0435.
[2025-03-25 05:52] LABS: Basophils # (Auto) 0.1 Thou/mm3 (0.0-0.2); Basophils % (Auto) 0 % (0-2.5); Eosinophils # (Auto) 0.0 Thou/mm3 (0.0-0.5); Eosinophils % (Auto) 0 % (0-10); Hematocrit 25.1 % (36.0-46.0); Immature Granulocytes Auto 0.45 Thou/mm3 (0.00-0.00); Lymphocytes # (Auto) 0.6 Thou/mm3 (1.0-4.8); Lymphocytes % (Auto) 2 % (10-50); Mean Corpuscular HGB Conc 31.9 g/dl (31.0-37.0); Mean Corpuscular Hemoglobin 27.8 pg (25.0-35.0); Mean Corpuscular Volume 87 fL (80-100); Monocytes # (Auto) 0.7 Thou/mm3 (0.0-0.8); Monocytes % (Auto) 2 % (0-12); Neutrophils # (Auto) 28.5 Thou/mm3 (1.8-7.7); Neutrophils % (Auto) 94 % (37-80); Nucleated Red Blood Cell # 0.05 Thou/mm3 (0.00-0.00); Nucleated Red Blood Cell % 0 /100 WBC (0); Platelet Count 529 Thou/mm3 (140-440); RDW Standard Deviation 46.9 fL (36.4-46.3); Red Blood Count 2.88 Miln/mm3 (4.00-5.20); White Blood Count 30.4 Thou/mm3 (3.6-11.0)
[2025-03-25 05:54] LABS: Hemoglobin 8.0 g/dL (12.0-16.0)
[2025-03-25 06:10] LABS: Alanine Aminotransferase 30 U/L (10-49); Albumin, Serum 2.8 gm/dL (3.4-4.8); Albumin/Globulin Ratio 1.3 (1.2-2.2); Alkaline Phosphatase 179 U/L (46-116); Anion Gap 16 (7-16); Aspartate Amino Transferase 35 U/L (0-34); BUN/Creatinine Ratio 33 Ratio (12-20); Bilirubin,Total 0.3 mg/dL (0.3-1.2); Blood Urea Nitrogen 43 mg/dL (9-23); Calcium 8.9 mg/dL (8.3-10.6); Calcium (Corrected) 9.9 mg/dL (8.5-10.1); Carbon Dioxide 21.3 mMol/L (20.0-31.0); Cardiac Risk Estimate 8.2 RATIO (3.7-5.6); Chloride 116 mMol/L (98-107); Cholesterol 82 mg/dL (132-200); Creatinine (Component) 1.3 mg/dL (0.6-1.3); Estimated Creatinine Clearance 20.4 mL/min (>60); Globulin 2.2 gm/dL (2.3-3.5); Glucose 89 mg/dL (74-106); HDL Cholesterol 10 mg/dL (40-60); LDL Cholesterol,Calculated 37 mg/dL (0-130); Magnesium 2.2 mg/dL (1.6-2.6); Osmolality,Calculated 313 (275-295); Phosphorous 4.1 mg/dL (2.4-5.1); Potassium 3.4 mMol/L (3.4-5.1); Sodium 153 mMol/L (136-145); Thyroid Stimulating Hormone 2.02 uIU/mL (0.55-4.78); Total Protein 5.0 gm/dL (5.7-8.2); Triglycerides 174 mg/dL (30-150); eGFR 41 See Note
[2025-03-25] MEDS: MULTIVITAMINS TABLET 1 TAB GT (09:57)
[2025-03-25 10:26] LABS: Base Excess -1 (-3-3); HCO3 23 mEq/L (20-26); Inspired Oxygen, FIO2 21 %; O2 Saturation 97 % (91-98); PCO2 31 mmHg (32.0-48.0); PO2 78 mmHg (83-108); pH, Arterial 7.48 (7.35-7.45)
[2025-03-25 10:29] LABS: Puncture Site Left Radial
[2025-03-25 10:30] LABS: Allen Test Performed/OK
[2025-03-25] MEDS: DOXYCYCLINE 100 MG TABLET GT ×2 (10:36→20:15)
[2025-03-25 10:48] LABS: Lactate (Lactic Acid) 1.9 mMol/L (0.4-2.0)
[2025-03-25 11:21] LABS: Ammonia < 10 uMol/L (11-32)
[2025-03-25 11:27] LABS: Sodium 153 mMol/L (136-145)
[2025-03-25] MEDS: DEXTROSE 5%-0.45% NS 1,000 ML 45 ML IV (12:58)
--- NOTE | 2025-03-25 13:43 | ESCONSULT_ITS ---
HPI Data of Consult Consult date: 03/25/25 Requesting Physician: Brent Martinez MD Admitting Provider: Brent Martinez MD Attending Provider: Brent Martinez MD Primary Care Provider: Physician No Primary/Family Consult Narrative Reason for consult: Hypernatremia History of present illness: 85 y/o female with PMH of dementia, paroxysmal atrial fibrillation, hypertension, diabetes, hyperllipidemia, ulcerative colitis, prior colon cancer, s/p PEG tube, transferred from [facility] to the hospital due to episodes of coffee ground emesis with strong odors x3. Patient is nonverbal, and has difficulty in engage and interact with medical providers. Patient has been consulted with nephrology for evaluation of UL and hypernatremia. ED course: In ED, vitals were: Temp 101F, WI 120, RR 28, BP 117/52, O2sat 90% RA. Labs showed: WBC:27.1, Hgb 8.7, Na 149, BUN 57, Cr 1.6, eGFR 32, Glucose:112, Lactic acid:2.3, BNP:268, Troponin I:0.041 UA: Yellow Haxy colored Urine, Urine protein 1+, RBC 5, WBC 2, Amorphous Crystals Present, Bacteria Rare CXR (03/24/2025): Significant diffuse right lung pneumonia., Mild prominence left ventricle, Prominent osteopenia. In ED, Patient was given, 1L NS bolus IV x1, Azithromycin 500mg IV x1, [id number] IV x1, Medical history: As stated above Surgical history: ,abdominal hysterectomy (1976), colon cancer surgery (1986), left ovarian surgery (1986), back surgeries (2008, 2013), right eye cataract surgery (2011), left eye cataract surgery (2014), total hip surgery (2015) Allergies: See list in the EMR Medications: Pending official med rec Family history: Noncontributory Social history: Denies smoking cigarettes, drinking alcohol or using other illicit drugs 03/25/2025: Labs reviewed and patient examined at the bedside. Patient is nonverbal, unable to communicate with medical providers. Patient was unable to receive EGD as she became hypotensive and A.fib. Received 1L D5-0.5NS bolus IV x1. Patient will attempt EGD tomorrow. Continue D5W IV 80ml/hr. Currently, BUN 43, Cr 1.3, eGFR 41, Na150 . cc:: cc: Brent Martinez MD Review of Systems Review of Systems Narrative Review of Systems: ROS: All 12 systems assessed and the patient denies unless otherwise stated in HPI Exam Vital Signs Temp Pulse Resp BP Pulse Ox O2 Del Method O2 Flow Rate 97.7 F 107 H 17 118/71 99 Room Air 2 03/25/25 12:00 03/25/25 12:00 03/25/25 12:00 03/25/25 12:03/25/25 12:03/25/25 12:03/24/25 15:43 Narrative Exam General: Mal-nourished, looks Lethargic Eye: normal conjunctiva, no scleral icterus HENT: Normocephalic, atraumatic, moist oral mucosa Neck: Supple, non-tender, no JVD, no lymphadenopathy Lungs: Non-labored respirations, symmetric chest rise, Clear to auscultate bilaterally, Right lower lobe crackles Heart: Peripheral pulses intact bilaterally, Regular Rhythm, No pitting edema of bilateral LEs, Tachycardic. Abdomen: Soft, non-tender, non-distended, no palpable masses Musculoskeletal: Normal range of motion and strength, No cyanosis or edema, No visible joint swelling Skin: Skin is warm, dry, no rashes or lesions. Psychiatric: Non-verbal, Unable to answer questions. Neuro: Cranial nerves II-XII grossly intact. Results Labs 03/25/25 13:40 03/25/25 18:00 Labs: Short CBC 03/25/25 Range/Units 05:25 WBC 30.4 H (3.6-11.0) Thou/mm3 Hgb 8.0 L (12.0-16.0) g/dL Hct 25.1 L (36.0-46.0) % Plt Count 529 H D (140-440) Thou/mm3 BMP 03/25/25 03/25/25 05:25 10:45 Sodium 153 H 153 H Potassium 3.4 Chloride 116 H Carbon Dioxide 21.3 BUN 43 H Creatinine 1.3 Glucose 89 Calcium 8.9 Liver Function 03/25/25 Range/Units 05:25 Total Bilirubin 0.3 (0.3-1.2) mg/dL AST 35 H (0-34) U/L ALT 30 (10-49) U/L Alkaline Phosphatase 179 H (46-116) U/L Albumin 2.8 L (3.4-4.8) gm/dL ABG Interpretation ABG results: 03/25/25 10:21 ABG pH 7.48 H ABG pCO2 31 L ABG pO2 78 L ABG HCO3 23 ABG O2 Saturation 97 ABG Base Excess -1 Quality Measures Quality Measures sepsis Current suspected stage: sepsis Possible source: pulmonary Blood cultures ordered: completed in ED Antibiotic ordered: Yes Advance care planning discussed with:: patient and other Medications Home Medications and Allergies Home Medications ?Medication ?Instructions ?Recorded ?Confirmed ?Type ferrous sulfate 325 mg (65 mg 325 mg feeding tube QDAY 03/24/25 03/24/25 History iron) tablet (Gil-Time) Allergies Allergy/AdvReac Type Severity Reaction Status Date / Time No Known Allergies Allergy Verified 03/24/25 08:45 Visit Medications Acetaminophen (Acetaminophen 325 Mg Tablet) 650 mg PO Q6HR PRN PRN Reason: Fever >99.9 Stop: 04/24/25 10:03 Amiodarone HCl (Amiodarone Hcl 200 Mg Tablet) 200 mg GT BID [facility] Stop: 04/24/25 08:59 Last Admin: 03/25/25 09:56 Dose: 200 mg Doxycycline Hyclate (Doxycycline 100 Mg Tablet) 100 mg GT BID [facility] Stop: 04/01/25 10:14 Last Admin: 03/25/25 10:36 Dose: 100 mg Guaifenesin/Dextromethorphan (Guaifenesin/Dm Tablet) 1 each PO BID PRN PRN Reason: COUGH Stop: 04/24/25 08:09 Dextrose/Sodium Chloride (D5-1/2ns) 1,000 mls @ 45 mls/hr IV .[id number] [facility] Stop: 04/23/25 14:44 Last Admin: 03/25/25 12:58 Dose: 45 mls/hr Ceftriaxone Sodium/Dextrose (Rocephin/D5w 1gm Iv Premix) 1 gm in 50 mls @ 100 mls/hr IV QDAY [facility] Stop: 04/01/25 16:04 Multivitamins (Multivitamins Tablet) 1 tab GT QDAY [facility] Stop: 04/24/25 08:59 Last Admin: 03/25/25 09:57 Dose: 1 tab Ondansetron HCl (Ondansetron Inj 2 Mg/Ml Inj 2 Ml) 4 mg IVP Q6H PRN; Protocol PRN Reason: NAUSEA OR VOMITING Stop: 04/23/25 14:49 Pantoprazole Sodium (Pantoprazole Inj 40 Mg Vial) 40 mg IVP BID [facility] Stop: 04/24/25 08:59 Last Admin: 03/25/25 09:30 Dose: Not Given Discontinued Medications Acetaminophen (Acetaminophen Supp 650 Mg Supp) 650 mg WI X1 ONE Stop: 03/24/25 09:03 Last Admin: 03/24/25 09:31 Dose: 650 mg Acetaminophen (Acetaminophen Supp 650 Mg Supp) 650 mg WI Q6H PRN PRN Reason: PAIN SCALE 1-3 (mild Stop: 04/23/25 14:49 Acetaminophen (Acetaminophen Supp 650 Mg Supp) 650 mg WI Q6H PRN PRN Reason: fever > 99.5 Stop: 04/23/25 14:49 Hydrocodone Bitart/Acetaminophen (Hydrocodone/Apap 5/325 Tablet) 1 tab PO Q4HR PRN PRN Reason: PAIN SCALE 4-6 (Moderate Stop: 03/29/25 14:49 Amiodarone HCl (Amiodarone Hcl 200 Mg Tablet) 200 mg GT X1 ONE Stop: 03/25/25 00:41 Last Admin: 03/25/25 00:54 Dose: 200 mg Sodium Chloride (Ns) 1,000 mls @ 999 mls/hr IV .Q1H1M ONE Stop: 03/24/25 10:02 Last Infusion: 03/24/25 10:43 Dose: Infused Azithromycin 500 mg/ Sodium (Chloride) 250 mls @ 250 mls/hr IV X1 ONE Stop: 03/24/25 12:37 Last Infusion: 03/24/25 15:12 Dose: Infused Ceftriaxone Sodium/Dextrose (Rocephin/D5w 1gm Iv Premix) 1 gm in 50 mls @ 100 mls/hr IV X1 ONE Stop: 03/24/25 12:07 Last Infusion: 03/24/25 13:49 Dose: Infused Sodium Chloride (Ns) 1,000 mls @ 999 mls/hr IV .Q1H1M ONE Stop: 03/24/25 13:36 Last Infusion: 03/24/25 15:13 Dose: Infused Azithromycin 250 mg/ Sterile (Water 2.5 ml/ Sodium Chloride) 252.5 mls @ 252.5 mls/hr IV QDAY [facility] Stop: 04/01/25 10:59 Pantoprazole Sodium (Pantoprazole Inj 40 Mg Vial) 80 mg IVP X1 ONE Stop: 03/24/25 10:01 Last Admin: 03/24/25 10:40 Dose: 80 mg Sodium Chloride (Sodium Chloride Rt 10% 15 Ml Nebu) 5 ml INH X1 ONE Stop: 03/24/25 15:12 Last Admin: 03/24/25 23:04 Dose: Not Given Sodium Chloride (Sodium Chloride Rt 10% 15 Ml Nebu) 5 ml INH X1 ONE Stop: 03/24/25 23:04 Last Admin: 03/24/25 23:23 Dose: Not Given Assessment & Plan Plan 85 y/o female with PMH of dementia, paroxysmal atrial fibrillation, hypertension, diabetes, hyperllipidemia, ulcerative colitis, prior colon cancer, s/p PEG tube, transferred from [facility] to the hospital due to episodes of coffee ground emesis with strong odors x3. Patient is nonverbal, and has difficulty in engage and interact with medical providers. Patient has been consulted with nephrology for evaluation of LU and hypernatremia. #LU, likely prerenal #Hypernatremia with Hyperosmolar state -LU likely prerenal, given improvement with IV fluids -Upon admission, BUN 57 , Cr 1.6 (Baseline of 1.0), eGFR 32 (Baseline of 55), Na: 149 -Acute Hypernatremia (<48hrs) of 153, Calculated Osmolality 312 (Hyperosmolar state), likely secondary to multiple factors; GI bleed with vomit + Sepsis (Fever, Tachypnea, insensible losses) + Inability to drink water (critical illness) -Currently, BUN 43, Cr 1.3, eGFR 41, Na150 Plan: - Continue D5W IV 80ml/hr - Consider Hemodialysis to correct hypernatremia and to avoid volume overload - Monitor renal function and urine output. - Renal dose med, avoid nephrotoxin. #Acute hypoxic respiratory failure #Sepsis secondary to right lower lobe pneumonia #Leukocytosis #Delirium 2/2 Sepsis #hx of E. coli bacteremia sensitive to ceftriaxone #UTI, ruled out #Upper GI bleed #s/p PEG tube #Dementia status post PEG tube #Encephalopathy #hx of Paroxysmal atrial flutter and fibrillation. #Failure to thrive #History of glaucoma #Chronic pelvic pain syndrome -Management per Primary Hospitalist team Thank you for allowing us to participate in the care of your patient. Assessment and plan discussed with my attending physician Dr. Didi Steven (PGY-1)- Internal medicine resident Attending Provider Attestation/Addendum Patient seen and examined with resident physician Dr. Steven. Note reviewed, agree with findings and recommendations. Patient noted to have hypernatremia. Increase free water flushes. Estimated free water deficit 2.2 L with insensible losses. Patient this afternoon dropped her blood pressure-1 L half NS bolus was given. Spoke to Dr. Jacobs.
--- NOTE | 2025-03-25 14:00 | PC.SS ---
Rounding Note: Plan is for patient to obtain EGD today.
[2025-03-25 14:12] LABS: Basophils # (Auto) 0.1 Thou/mm3 (0.0-0.2); Basophils % (Auto) 0 % (0-2.5); Eosinophils # (Auto) 0.0 Thou/mm3 (0.0-0.5); Eosinophils % (Auto) 0 % (0-10); Hematocrit 25.3 % (36.0-46.0); Immature Granulocytes Auto 0.62 Thou/mm3 (0.00-0.00); Lymphocytes # (Auto) 0.5 Thou/mm3 (1.0-4.8); Lymphocytes % (Auto) 2 % (10-50); Mean Corpuscular HGB Conc 31.6 g/dl (31.0-37.0); Mean Corpuscular Hemoglobin 27.1 pg (25.0-35.0); Mean Corpuscular Volume 86 fL (80-100); Monocytes # (Auto) 0.7 Thou/mm3 (0.0-0.8); Monocytes % (Auto) 2 % (0-12); Neutrophils # (Auto) 28.9 Thou/mm3 (1.8-7.7); Neutrophils % (Auto) 94 % (37-80); Nucleated Red Blood Cell # 0.06 Thou/mm3 (0.00-0.00); Nucleated Red Blood Cell % 0 /100 WBC (0); Platelet Count 513 Thou/mm3 (140-440); RDW Standard Deviation 46.1 fL (36.4-46.3); Red Blood Count 2.95 Miln/mm3 (4.00-5.20); White Blood Count 30.8 Thou/mm3 (3.6-11.0)
--- NOTE | 2025-03-25 14:19 | PCS.ST ---
Pt is NPO for EGD. Swallowing evaluation tomorrow if is able to participate.
[2025-03-25 14:21] LABS: Hemoglobin 8.0 g/dL (12.0-16.0)
--- NOTE | 2025-03-25 14:24 | PD.RESPRO ---
Documentation for date of: 03/25/25 Exam Vital Signs Temp Pulse Resp BP Pulse Ox O2 Del Method O2 Flow Rate 97.7 F 107 H 17 118/71 99 Room Air 2 03/25/25 12:00 03/25/25 12:00 03/25/25 12:00 03/25/25 12:00 03/25/25 12:00 03/25/25 12:00 03/24/25 15:43 Objective Labs 03/25/25 13:40 03/25/25 10:45 Labs: Laboratory Results - last 24 hr 03/24/25 03/25/25 03/25/25 15:38 05:25 10:21 WBC 30.4 H RBC 2.88 L Hgb 8.0 L Hct 25.1 L MCV 87 MCH 27.8 MCHC 31.9 RDW Std Deviation 46.9 H Plt Count 529 H D Neut % (Auto) 94 H Lymph % (Auto) 2 L Will % (Auto) 2 Eos % (Auto) 0 Baso % (Auto) 0 Neut # (Auto) 28.5 H Lymph # (Auto) 0.6 L Will # (Auto) 0.7 Eos # (Auto) 0.0 Baso # (Auto) 0.1 Immature Gran # (Auto) 0.45 H Absolute Nucleated RBC 0.05 H Immature Gran % 2 H Nucleated RBC % 0 Puncture Site Left Radial ABG pH 7.48 H ABG pCO2 31 L ABG pO2 78 L ABG HCO3 23 ABG O2 Saturation 97 ABG Base Excess -1 FiO2 21 Sodium 153 H Potassium 3.4 Chloride 116 H Carbon Dioxide 21.3 Anion Gap 16 BUN 43 H Creatinine 1.3 Estim Creat Clear Calc 20.4 L eGFR 41 L BUN/Creatinine Ratio 33 H Glucose 89 Calculated Osmolality 313 H Lactic Acid 2.6 H Calcium 8.9 Corrected Calcium 9.9 Phosphorus 4.1 Magnesium 2.2 Total Bilirubin 0.3 AST 35 H ALT 30 Alkaline Phosphatase 179 H Ammonia Total Protein 5.0 L Albumin 2.8 L Globulin 2.2 L Albumin/Globulin Ratio 1.3 Triglycerides 174 H Cholesterol 82 L LDL Cholesterol, Calc 37 HDL Cholesterol 10 L Cholesterol/HDL Ratio 8.2 H TSH 2.02 03/25/25 03/25/25 10:45 13:40 WBC 30.8 H RBC 2.95 L Hgb 8.0 L Hct 25.3 L MCV 86 MCH 27.1 MCHC 31.6 RDW Std Deviation 46.1 Plt Count 513 H Neut % (Auto) 94 H Lymph % (Auto) 2 L Will % (Auto) 2 Eos % (Auto) 0 Baso % (Auto) 0 Neut # (Auto) 28.9 H Lymph # (Auto) 0.5 L Will # (Auto) 0.7 Eos # (Auto) 0.0 Baso # (Auto) 0.1 Immature Gran # (Auto) 0.62 H Absolute Nucleated RBC 0.06 H Immature Gran % 2 H Nucleated RBC % 0 Puncture Site ABG pH ABG pCO2 ABG pO2 ABG HCO3 ABG O2 Saturation ABG Base Excess FiO2 Sodium 153 H Potassium Chloride Carbon Dioxide Anion Gap BUN Creatinine Estim Creat Clear Calc eGFR BUN/Creatinine Ratio Glucose Calculated Osmolality Lactic Acid 1.9 Calcium Corrected Calcium Phosphorus Magnesium Total Bilirubin AST ALT Alkaline Phosphatase Ammonia < 10 L Total Protein Albumin Globulin Albumin/Globulin Ratio Triglycerides Cholesterol LDL Cholesterol, Calc HDL Cholesterol Cholesterol/HDL Ratio TSH ABG Interpretation ABG results: 03/25/25 10:21 ABG pH 7.48 H ABG pCO2 31 L ABG pO2 78 L ABG HCO3 23 ABG O2 Saturation 97 ABG Base Excess -1 Quality Measures Quality Measures sepsis Possible source: pulmonary Blood cultures ordered: completed in ED Assessment & Plan Assessment Current Active Medications: Generic Name Dose Route Start Last Admin Trade Name Freq PRN Reason Stop Dose Admin Acetaminophen 650 mg 03/25/25 10:04 Acetaminophen 325 Mg Tablet PO 04/24/25 10:03 Q6HR PRN Fever >99.9 Amiodarone HCl 200 mg 03/25/25 09:00 03/25/25 09:56 Amiodarone Hcl 200 Mg Tablet GT 04/24/25 08:59 200 mg BID [facility] Administration Doxycycline Hyclate 100 mg 03/25/25 10:15 03/25/25 10:36 Doxycycline 100 Mg Tablet GT 04/01/25 10:14 100 mg BID [facility] Administration Guaifenesin/Dextromethorphan 1 each 03/25/25 08:10 Guaifenesin/Dm Tablet PO 04/24/25 08:09 BID PRN COUGH Dextrose/Sodium Chloride 1,000 mls @ 45 mls/hr 03/24/25 14:45 03/25/25 12:58 D5-1/2ns IV 04/23/25 14:44 45 mls/hr .[id number] [facility] Administration Ceftriaxone Sodium/Dextrose 1 gm in 50 mls @ 100 mls/hr 03/25/25 16:05 Rocephin/D5w 1gm Iv Premix IV 04/01/25 16:04 QDAY [facility] Multivitamins 1 tab 03/25/25 09:00 03/25/25 09:57 Multivitamins Tablet GT 04/24/25 08:59 1 tab QDAY [facility] Administration Ondansetron HCl 4 mg 03/24/25 14:50 Ondansetron Inj 2 Mg/Ml Inj 2 Ml IVP 04/23/25 14:49 Q6H PRN NAUSEA OR VOMITING Protocol Pantoprazole Sodium 40 mg 03/25/25 09:00 03/25/25 09:30 Pantoprazole Inj 40 Mg Vial IVP 04/24/25 08:59 Not Given BID [facility]
[2025-03-25 14:25] LABS: Sodium 150 mMol/L (136-145)
--- NOTE | 2025-03-25 14:29 | ESPR_ITS ---
<Statement entered by Juan Jose Piper MD - 04/01/25 07:12> I reviewed above note and agree with findings and plans. I have also personally examined the patient with medicine team and went over assessment and plan with medical team including internal audit director and resident physician. <Statement entered by Kendell Thompson MD - 03/25/25 15:28> No acute overnight events. Seen and examined at bedside. Patient largely nonverbal but does awaken to loud voice. Has been difficult obtaining peripheral access as she had a mastectomy on the right side and multiple attempts on left side have led to infiltrated PIV's. As a result, patient has not received her IV antibiotics or IVF for her community acquired pneumonia. Thus, will instead give water flushes through PEG tube. In the meantime, pending EGD and will follow-up cultures. ----- Note reviewed and agree with care plan as documented. Please refer to the note below for further details. Plan discussed with attending physician Dr. Veronique Thompson MD PGY-2 Internal Medicine Documentation for date of: 03/25/25 Subjective Subjective Interval history: 85 year old female with history of dementia, paroxysmal atrial fibrillation, hypertension, diabetes, hyperllipidemia, ulcerative colitis, prior colon cancer, s/p PEG tube presented to [facility] from [facility] for evaluation of vomiting coffee ground emesis with strong odors, on admission day 2 for Sepsis secondary to pneumonia, acute hypoxic respiratory failure, and acute anemia secondary to upper GI bleed. Overnight patient had few tachycardic episodes, 128 at 4:00 am and 112 at 12:54 am, no other acute overnight events. Patient was seen at bedside today morning. Patient was sleepy/drowsy, did not wake up to verbal stimuli. Patient seemed to be resting comfortably. Moved extremities when I touched her arm to wake her but did not open her eyes. Exam Vital Signs Temp Pulse Resp BP Pulse Ox O2 Del Method O2 Flow Rate 97.7 F 107 H 17 118/71 99 Room Air 2 03/25/25 12:03/25/25 12:03/25/25 12:03/25/25 12:03/25/25 12:03/25/25 12:03/24/25 15:43 Narrative Exam General: Patient malnourished and disheveled. Not awake and not answering questions Skin: Intact, Warm, no rashes. HEENT: Normocephalic, Atraumatic. Moist mucous membranes Respiratory: Breath sounds are equal bilaterally with equal chest expansion. Unable to get a complete exam. Cardiovascular:RRR, No murmurs. Distal pulses 2+ Abdomen: Abdomen soft, non-distended, without erythema, or lesions. Nomral bowel sounds. Palpation nontender in all four quadrants, patient retracted when palpating did not verbalize anypain. No organomagely. No guarding or rebound present. Musculoskeletal/Extremities: No erythema, swelling, tenderness of any joints. No edema of BLE. Unable to check ROM Neurologic: Not cheked Objective Labs 03/25/25 13:40 03/25/25 13:40 Labs: Laboratory Results - last 24 hr 03/24/25 03/25/25 03/25/25 15:38 05:25 10:21 WBC 30.4 H RBC 2.88 L Hgb 8.0 L Hct 25.1 L MCV 87 MCH 27.8 MCHC 31.9 RDW Std Deviation 46.9 H Plt Count 529 H D Neut % (Auto) 94 H Lymph % (Auto) 2 L [place] % (Auto) 2 Eos % (Auto) 0 Baso % (Auto) 0 Neut # (Auto) 28.5 H Lymph # (Auto) 0.6 L [place] # (Auto) 0.7 Eos # (Auto) 0.0 Baso # (Auto) 0.1 Immature Gran # (Auto) 0.45 H Absolute Nucleated RBC 0.05 H Immature Gran % 2 H Nucleated RBC % 0 Puncture Site Left Radial ABG pH 7.48 H ABG pCO2 31 L ABG pO2 78 L ABG HCO3 23 ABG O2 Saturation 97 ABG Base Excess -1 FiO2 21 Sodium 153 H Potassium 3.4 Chloride 116 H Carbon Dioxide 21.3 Anion Gap 16 BUN 43 H Creatinine 1.3 Estim Creat Clear Calc 20.4 L eGFR 41 L BUN/Creatinine Ratio 33 H Glucose 89 Calculated Osmolality 313 H Lactic Acid 2.6 H Calcium 8.9 Corrected Calcium 9.9 Phosphorus 4.1 Magnesium 2.2 Total Bilirubin 0.3 AST 35 H ALT 30 Alkaline Phosphatase 179 H Ammonia Total Protein 5.0 L Albumin 2.8 L Globulin 2.2 L Albumin/Globulin Ratio 1.3 Triglycerides 174 H Cholesterol 82 L LDL Cholesterol, Calc 37 HDL Cholesterol 10 L Cholesterol/HDL Ratio 8.2 H TSH 2.02 03/25/25 03/25/25 10:45 13:40 WBC 30.8 H RBC 2.95 L Hgb 8.0 L Hct 25.3 L MCV 86 MCH 27.1 MCHC 31.6 RDW Std Deviation 46.1 Plt Count 513 H Neut % (Auto) 94 H Lymph % (Auto) 2 L [place] % (Auto) 2 Eos % (Auto) 0 Baso % (Auto) 0 Neut # (Auto) 28.9 H Lymph # (Auto) 0.5 L [place] # (Auto) 0.7 Eos # (Auto) 0.0 Baso # (Auto) 0.1 Immature Gran # (Auto) 0.62 H Absolute Nucleated RBC 0.06 H Immature Gran % 2 H Nucleated RBC % 0 Puncture Site ABG pH ABG pCO2 ABG pO2 ABG HCO3 ABG O2 Saturation ABG Base Excess FiO2 Sodium 153 H 150 H Potassium Chloride Carbon Dioxide Anion Gap BUN Creatinine Estim Creat Clear Calc eGFR BUN/Creatinine Ratio Glucose Calculated Osmolality Lactic Acid 1.9 Calcium Corrected Calcium Phosphorus Magnesium Total Bilirubin AST ALT Alkaline Phosphatase Ammonia < 10 L Total Protein Albumin Globulin Albumin/Globulin Ratio Triglycerides Cholesterol LDL Cholesterol, Calc HDL Cholesterol Cholesterol/HDL Ratio TSH ABG Interpretation ABG results: 03/25/25 10:21 ABG pH 7.48 H ABG pCO2 31 L ABG pO2 78 L ABG HCO3 23 ABG O2 Saturation 97 ABG Base Excess -1 Quality Measures Quality Measures sepsis Current suspected stage: sepsis Possible source: pulmonary Blood cultures ordered: completed in ED Antibiotic ordered: Yes Advance care planning discussed with:: other Assessment & Plan Assessment Current Active Medications: Generic Name Dose Route Start Last Admin Trade Name Freq PRN Reason Stop Dose Admin Acetaminophen 650 mg 03/25/25 10:04 Acetaminophen 325 Mg Tablet PO 04/24/25 10:03 Q6HR PRN Fever >99.9 Amiodarone HCl 200 mg 03/25/25 09:00 03/25/25 09:56 Amiodarone Hcl 200 Mg Tablet GT 04/24/25 08:59 200 mg BID LORNE Administration Doxycycline Hyclate 100 mg 03/25/25 10:15 03/25/25 10:36 Doxycycline 100 Mg Tablet GT 04/01/25 10:14 100 mg BID LORNE Administration Guaifenesin/Dextromethorphan 1 each 03/25/25 08:10 Guaifenesin/Dm Tablet PO 04/24/25 08:09 BID PRN COUGH Dextrose/Sodium Chloride 1,000 mls @ 45 mls/hr 03/24/25 14:45 03/25/25 12:58 D5-1/2ns IV 04/23/25 14:44 45 mls/hr .[id number] LORNE Administration Ceftriaxone Sodium/Dextrose 1 gm in 50 mls @ 100 mls/hr 03/25/25 16:05 Rocephin/D5w 1gm Iv Premix IV 04/01/25 16:04 QDAY LORNE Multivitamins 1 tab 03/25/25 09:00 03/25/25 09:57 Multivitamins Tablet GT 04/24/25 08:59 1 tab QDAY LORNE Administration Ondansetron HCl 4 mg 03/24/25 14:50 Ondansetron Inj 2 Mg/Ml Inj 2 Ml IVP 04/23/25 14:49 Q6H PRN NAUSEA OR VOMITING Protocol Pantoprazole Sodium 40 mg 03/25/25 09:00 03/25/25 09:30 Pantoprazole Inj 40 Mg Vial IVP 04/24/25 08:59 Not Given BID LORNE Plan 85 year old female with history of dementia, paroxysmal atrial fibrillation, hypertension, diabetes, hyperllipidemia, ulcerative colitis, prior colon cancer, s/p PEG tube presented from [facility] on admission day 2 for sepsis secondary to Right lower lobe pneumonia, acute hypoxic respiratory failure, and anemia secondary to uppper GI bleed. #Acute hypoxic respiratory failure #Sepsis secondary to right lower lobe pneumonia #Leukocytosis #Delirium 2/2 Sepsis #hx of E. coli bacteremia sensitive to ceftriaxone #UTI, ruled out CXR significant for diffuse right lung pneumonia UA WBC 2, Leukocyte esterase negative, rare urine bacteria. WBC at 30.8 tending up (30.4 <- 27.1) SIRS criteria: T 96.9 (>100.9 or <96.8F), RR 17 (>20/min), HR 107 (>90/min), WBC 30.8 (>12 or <4K or Bands >10%). and right lung pneumonia as a source of infection qSOFA 1 CURB-65 score 4: high risk of mortality from CAP warranting inpatient treatment. - Started ceftriaxone IV 1g QD and azithromycin IV 250mg QD - Monitor CBC daily; trend WBC. - F/U blood ctx, urine ctx - Monitor vital signs closely. - Maintain MAP > 65 mmHg. #Acute anemia secondary to upper GI bleed #s/p PEG tube PEG tube placed 02/[address] Montes. [place] bleeding score 15: patient at high risk for GI bleed AIMS65 score: 2: 5.3% risk of in-hospital mortality from upper GI bleed Plan: -GI Dr Montes consulted, pending fiberoptic endoscopy -Serial CBC -Transfuse if Hgb <7g -IV Protonix 40mg bid #LU, likely prerenal - Improving #Hypernatremia BUN 43 (Yesterday 57, base <24), Cr 1.3 (Yesterday 1.6, base 1.1) BUN/Cr ratio of 36. Dry mucosa on physical exam. Na: 150 (153 yesterday) Plan: - Nephrology consulted, appreciate recommendations - Water flushes PEG tube, 150 ml/her and continue to monitor Na. - Monitor renal function and urine output. - Renal dose med, avoid nephrotoxin. #Dementia status post PEG tube #Encephalopathy Progressive confusion and weakness over the past year. Plan: - Resume donepezil 10mg PO QD once mentation imrpoves. Unknown if pt taking Donepezil, Memantine, or Fluoxetine at home. #hx of Paroxysmal atrial flutter and fibrillation. EKG (03/24) showed sinus tachycardia, T wave abnormality consistent with previous EKG. Troponin I .041 CHADS-VASC score estimated at 4. TTE: LVEF 55%. Normal LV, RV size and function. Mild-moderate MR with anterior mitral leaflet thickening. Aortic valve sclerosis. Mild TR, Trace WA Patient has a CHADSVASC of 4, but due to dementia, failure to thrive, generalized weakness and falls, the risk of anticoagulation outweighs the benefits. Plan: - Continue Amiodarone 200 mg PEG tube BID - pending repeat EKG - Continuous telemetry monitoring. - consider cardiology consult #Failure to thrive BMI 14.8 Previously, had failed swallow screen. #History of glaucoma #Chronic pelvic pain syndrome -[place] 10-325 PRN Health Maintenance: Code Status: Full DVT Prophylaxis: SCDs GI Prophylaxis: Protonix Diet: NPO pending EGD [place]: None Lines: PEG tube Supplemental O2: None Disposition: Med tele, pending EGD, discharge to SNF Patient seen and care discussed with my attending physician, Dr. Piper and my senior residents, Dr. Jacobs and Dr. Blake Thompson. Loki Rodgers, S-IV
--- NOTE | 2025-03-25 15:21 | PC.PT ---
PT eval only. Patient is not a candidate for Skilled PT services at this time. Pls see PT eval notes.
--- NOTE | 2025-03-25 15:53 | PC.DIETICIAN ---
Nutrition prescription When indicated, consider: Jevity 1.2 at 20 ml/hr via PEG tube by pump. Advance 10 ml every 8 hrs to goal rate of 50 ml/hr x 24 hrs. If no IV fluids, water flushes of 25 ml/hr (or per MD).
--- NOTE | 2025-03-25 16:15 | SUR.OPER ---
AT 1605 PATIENT INTO OR4 FOR ENDOSCOPY PROCEDURE. PATIENT CONNECTED TO V/S MONITOR. BLOOD PRESSURE IS 78/49, CARDIAC RHYTHM SHOWS A-FIB RVR, HR 131. AT BEDSIDE. PER CANCEL PROCEDURE, TRANSFER PATIENT BACK TO FLOOR, AND HE WILL HAVE INTERNAL TEAM MEET THERE FOR INTERVENTION. JARROD FUNEZ INFORMED.
--- NOTE | 2025-03-25 16:30 | EKG_ITS ---
[facility] Test Date: 2025-03-25 Pat Name: MELLY SMILEY [facility] Gender[facility] Female [employer]: MARY ANN : 1940 Requested By: Bill Jacobs Order Number: [id number] Reading MD: Bill Jacobs Measurements Intervals [place] Rate: 94 P: 77 HI: 146 QRS: 15 QRSD: 71 T: -35 QT: 358 QTc: 449 Interpretive Statements SINUS RHYTHM LOW QRS VOLTAGE IN PRECORDIAL LEADS NONSPECIFIC T-WAVE ABNORMALITY Compared to ECG 03/24/2025 09:29:28 Sinus tachycardia no longer present Possible ischemia no longer present T-wave abnormality still present /store/S0/[id number].pdf
[2025-03-25] MEDS: cefTRIAXone/D5w 1gm IV premix 1 GM/50 ML BAG IV (16:38)
[2025-03-25] MEDS: DEXTROSE 5%-0.45% NS 1,000 ML 150 ML IV (17:00)
--- NOTE | 2025-03-25 19:06 | PD.IMPROG ---
Documentation for date of: 03/25/25 Subjective Subjective Interval history: Patient was brought to the endoscopy unit heart rate jumped up to 140 irregular beat atrial fibrillation with RVR at the systolic blood pressure was 70 I canceled the procedure for today which was the EGD Patient sent back to telemetry Procedure rescheduled for tomorrow provider the heart rate is controlled and the blood pressure is better Exam Vital Signs Temp Pulse Resp BP Pulse Ox O2 Del Method O2 Flow Rate 97.7 F 117 H 22 H 78/46 L 96 Room Air 2 03/25/25 12:00 03/25/25 19:03 03/25/25 19:03 03/25/25 16:05 03/25/25 19:03 03/25/25 12:00 03/24/25 15:43 Objective Labs 03/25/25 13:40 03/25/25 13:40 Labs: Laboratory Results - last 24 hr 03/25/25 03/25/25 03/25/25 05:25 10:21 10:45 WBC 30.4 H RBC 2.88 L Hgb 8.0 L Hct 25.1 L MCV 87 MCH 27.8 MCHC 31.9 RDW Std Deviation 46.9 H Plt Count 529 H D Neut % (Auto) 94 H Lymph % (Auto) 2 L [place] % (Auto) 2 Eos % (Auto) 0 Baso % (Auto) 0 Neut # (Auto) 28.5 H Lymph # (Auto) 0.6 L [place] # (Auto) 0.7 Eos # (Auto) 0.0 Baso # (Auto) 0.1 Immature Gran # (Auto) 0.45 H Absolute Nucleated RBC 0.05 H Immature Gran % 2 H Nucleated RBC % 0 Puncture Site Left Radial ABG pH 7.48 H ABG pCO2 31 L ABG pO2 78 L ABG HCO3 23 ABG O2 Saturation 97 ABG Base Excess -1 FiO2 21 Sodium 153 H 153 H Potassium 3.4 Chloride 116 H Carbon Dioxide 21.3 Anion Gap 16 BUN 43 H Creatinine 1.3 Estim Creat Clear Calc 20.4 L eGFR 41 L BUN/Creatinine Ratio 33 H Glucose 89 Calculated Osmolality 313 H Lactic Acid 1.9 Calcium 8.9 Corrected Calcium 9.9 Phosphorus 4.1 Magnesium 2.2 Total Bilirubin 0.3 AST 35 H ALT 30 Alkaline Phosphatase 179 H Ammonia < 10 L Total Protein 5.0 L Albumin 2.8 L Globulin 2.2 L Albumin/Globulin Ratio 1.3 Triglycerides 174 H Cholesterol 82 L LDL Cholesterol, Calc 37 HDL Cholesterol 10 L Cholesterol/HDL Ratio 8.2 H TSH 2.02 03/25/25 13:40 WBC 30.8 H RBC 2.95 L Hgb 8.0 L Hct 25.3 L MCV 86 MCH 27.1 MCHC 31.6 RDW Std Deviation 46.1 Plt Count 513 H Neut % (Auto) 94 H Lymph % (Auto) 2 L [place] % (Auto) 2 Eos % (Auto) 0 Baso % (Auto) 0 Neut # (Auto) 28.9 H Lymph # (Auto) 0.5 L [place] # (Auto) 0.7 Eos # (Auto) 0.0 Baso # (Auto) 0.1 Immature Gran # (Auto) 0.62 H Absolute Nucleated RBC 0.06 H Immature Gran % 2 H Nucleated RBC % 0 Puncture Site ABG pH ABG pCO2 ABG pO2 ABG HCO3 ABG O2 Saturation ABG Base Excess FiO2 Sodium 150 H Potassium Chloride Carbon Dioxide Anion Gap BUN Creatinine Estim Creat Clear Calc eGFR BUN/Creatinine Ratio Glucose Calculated Osmolality Lactic Acid Calcium Corrected Calcium Phosphorus Magnesium Total Bilirubin AST ALT Alkaline Phosphatase Ammonia Total Protein Albumin Globulin Albumin/Globulin Ratio Triglycerides Cholesterol LDL Cholesterol, Calc HDL Cholesterol Cholesterol/HDL Ratio TSH Impressions Impression: Melena Posthemorrhagic anemia A-fib with RVR Hypertension Plan Cancel procedure for today Can have PEG feeding open to be done tonight and n.p.o. for the procedure tomorrow ABG Interpretation ABG results: 03/25/25 10:21 ABG pH 7.48 H ABG pCO2 31 L ABG pO2 78 L ABG HCO3 23 ABG O2 Saturation 97 ABG Base Excess -1 Assessment & Plan A&P Narrative # Coffee-ground hematemesis could be the bleeding from the gastrostomy site with ulceration, possible peptic ulcer disease, possible Annie-Gardner tear # Postoperative anemia plan Fiberoptic esophagogastroduodenoscopy with possible therapeutic intervention possible biopsy under intravenous moderate sedation Consent will be obtained from the conservator and the patient has been scheduled tentatively for tomorrow Serial CBC Transfuse if the hemoglobin drops from 7 g IV Protonix Will follow the patient Other medical problems include Essential hypertension Paroxysmal atrial fibrillation Diabetes mellitus type 2 Questionable history of from the record review UC/colon carcinoma Thank you very much for the opportunity to participate in the care of this patient Time Spent With Patient Time: Total time spent is greater than 50% in coordination of care (as documented) at patient's floor/unit and/or counseling patient:
[2025-03-25 19:14] LABS: Sodium 148 mMol/L (136-145)
--- NOTE | 2025-03-25 20:06 | ESCONSULT_ITS ---
<Statement entered by Mehul Sal MD - 03/27/25 16:39> I personally evaluated examined the patient with Dr. Dillard PGY2 patient is well-known to me alongside history of paroxysmal A-fib recently hospitalized discharged on telemetry with A-fib RVR intermittent episodes also possible GI bleeding patient has severe dementia difficult to get good history evaluated patient with resident physician Dr. Dillard agree with the treatment plan recommendation as documented we will continue the amiodarone as well as beta- vera as tolerated for rate control. Midodrine to be given for low blood pressure. HPI Data of Consult Consult date: 03/25/25 Requesting Physician: Elle Schultz DO Admitting Provider: Brent Martinez MD Attending Provider: Mehul Sal MD Primary Care Provider: Physician No Primary/Family Consult Narrative Reason for consult: Afib RVR History of present illness: Patient with severe dementia history is limited at this time. 85-year-old female with a history of very advanved dementia, hypertension, colon cancer, and a-fib on amiodarone, and PEG tube for long-term feeding support who presents from [facility] for evaluation of coffee-ground emesis. Admitted for sepsis secondary to pneumonia. Cardiology consulted for management of AFib with RVR. ED course: Vitals on arrival BP 117/52, HR 118, RR 28, Tmax 101, O2 90%, Chest x-ray revealed diffuse right lung pneumonia, and patient was given ceftriaxone IV [address] azithromycin IV 500 mg x 1, Protonix IVP 80 mg x 1 and IVFs PMHx: Glaucoma, severe Dementia, Chronic pelvic pain syndrome, Left nephrolithiasis SxHx: cataracts, colon cancer, hysterectomy, hip replacement, spine surgeries, PEG tube placement Social Hx: no alcohol, tobbaco or illicit substances FHx: unknown Cardiology consulted for Afib with RVR cc:: cc: Elle Schultz DO Review of Systems Review of Systems ROS Unobtainable: unobtainable due to mental status and unobtainable due to medical condition Exam Vital Signs Temp Pulse Resp BP Pulse Ox O2 Del Method O2 Flow Rate 97.7 F 117 H 22 H 78/46 L 96 Room Air 2 03/25/25 12:00 03/25/25 19:03 03/25/25 19:03 03/25/25 16:05 03/25/25 19:03 03/25/25 12:00 03/24/25 15:43 Narrative Exam GENERAL: NAD, disheveled, malnourished HEENT: dry mucosa CARDIO: Heart irregularly irregular, no obvious murmurs PULM: No noted coughing/dyspnea CTA B/L, no R/W/R GI: Abdomen soft, nondistended, no pain on palpation. PEG tube in place SKIN/MSK/EXT: No wounds/rashes/edema/amputations, no pain on palpation. Pedal pulses present B/L Results Labs 03/25/25 13:40 03/25/25 18:00 Labs: Short CBC 03/25/25 03/25/25 Range/Units 05:25 13:40 WBC 30.4 H 30.8 H (3.6-11.0) Thou/mm3 Hgb 8.0 L 8.0 L (12.0-16.0) g/dL Hct 25.1 L 25.3 L (36.0-46.0) % Plt Count 529 H D 513 H (140-440) Thou/mm3 BMP 03/25/25 03/25/25 03/25/25 05:25 10:45 13:40 Sodium 153 H 153 H 150 H Potassium 3.4 Chloride 116 H Carbon Dioxide 21.3 BUN 43 H Creatinine 1.3 Glucose 89 Calcium 8.9 03/25/25 18:00 Sodium 148 H Potassium Chloride Carbon Dioxide BUN Creatinine Glucose Calcium Liver Function 03/25/25 Range/Units 05:25 Total Bilirubin 0.3 (0.3-1.2) mg/dL AST 35 H (0-34) U/L ALT 30 (10-49) U/L Alkaline Phosphatase 179 H (46-116) U/L Albumin 2.8 L (3.4-4.8) gm/dL ABG Interpretation ABG results: 03/25/25 10:21 ABG pH 7.48 H ABG pCO2 31 L ABG pO2 78 L ABG HCO3 23 ABG O2 Saturation 97 ABG Base Excess -1 Quality Measures Quality Measures sepsis Current suspected stage: ruled out Possible source: pulmonary Blood cultures ordered: completed in ED Antibiotic ordered: Yes Advance care planning discussed with:: patient Medications Home Medications and Allergies Home Medications ?Medication ?Instructions ?Recorded ?Confirmed ?Type ferrous sulfate 325 mg (65 mg 325 mg feeding tube QDAY 03/24/25 03/24/25 History iron) tablet (Gil-Time) Allergies Allergy/AdvReac Type Severity Reaction Status Date / Time No Known Allergies Allergy Verified 03/24/25 08:45 Visit Medications Acetaminophen (Acetaminophen 325 Mg Tablet) 650 mg PO Q6HR PRN PRN Reason: Fever >99.9 Stop: 04/24/25 10:03 Amiodarone HCl (Amiodarone Hcl 200 Mg Tablet) 200 mg GT BID [facility] Stop: 04/24/25 08:59 Last Admin: 03/25/25 09:56 Dose: 200 mg Doxycycline Hyclate (Doxycycline 100 Mg Tablet) 100 mg GT BID [facility] Stop: 04/01/25 10:14 Last Admin: 03/25/25 10:36 Dose: 100 mg Guaifenesin/Dextromethorphan (Guaifenesin/Dm Tablet) 1 each PO BID PRN PRN Reason: COUGH Stop: 04/24/25 08:09 Ceftriaxone Sodium/Dextrose (Rocephin/D5w 1gm Iv Premix) 1 gm in 50 mls @ 100 mls/hr IV QDAY [facility] Stop: 04/01/25 16:04 Last Admin: 03/25/25 16:38 Dose: 100 mls/hr Dextrose/Sodium Chloride (D5-1/2ns) 1,000 mls @ 999 mls/hr IV .Q1H1M [facility] Stop: 04/24/25 16:59 Last Admin: 03/25/25 17:00 Dose: 150 mls/hr Dextrose (D5w) 1,000 mls @ 80 mls/hr IV .[id number] ONE Stop: 03/26/25 05:31 Multivitamins (Multivitamins Tablet) 1 tab GT QDAY [facility] Stop: 04/24/25 08:59 Last Admin: 03/25/25 09:57 Dose: 1 tab Ondansetron HCl (Ondansetron Inj 2 Mg/Ml Inj 2 Ml) 4 mg IVP Q6H PRN; Protocol PRN Reason: NAUSEA OR VOMITING Stop: 04/23/25 14:49 Pantoprazole Sodium (Pantoprazole Inj 40 Mg Vial) 40 mg IVP BID [facility] Stop: 04/24/25 08:59 Last Admin: 03/25/25 09:30 Dose: Not Given Discontinued Medications Acetaminophen (Acetaminophen Supp 650 Mg Supp) 650 mg RI X1 ONE Stop: 03/24/25 09:03 Last Admin: 03/24/25 09:31 Dose: 650 mg Acetaminophen (Acetaminophen Supp 650 Mg Supp) 650 mg RI Q6H PRN PRN Reason: PAIN SCALE 1-3 (mild Stop: 04/23/25 14:49 Acetaminophen (Acetaminophen Supp 650 Mg Supp) 650 mg RI Q6H PRN PRN Reason: fever > 99.5 Stop: 04/23/25 14:49 Hydrocodone Bitart/Acetaminophen (Hydrocodone/Apap 5/325 Tablet) 1 tab PO Q4HR PRN PRN Reason: PAIN SCALE 4-6 (Moderate Stop: 03/29/25 14:49 Amiodarone HCl (Amiodarone Hcl 200 Mg Tablet) 200 mg GT X1 ONE Stop: 03/25/25 00:41 Last Admin: 03/25/25 00:54 Dose: 200 mg Benzocaine (Benzocaine 20% (Hurricaine) [place] 1 Dose) 1 dose TOP X1 ONE Stop: 03/25/25 16:00 Diphenhydramine HCl (Diphenhydramine Inj 50 Mg/Ml Vial) 25 mg IVP PRNMRX1 PRN PRN Reason: MODERATE SEDATION Stop: 03/25/25 17:59 Fentanyl Citrate (Fentanyl Cit Inj 50 Mcg/Ml Amp 2ml) 50 mcg IVP Q2M PRN PRN Reason: MODERATE SEDATION Stop: 03/25/25 17:59 Sodium Chloride (Ns) 1,000 mls @ 999 mls/hr IV .Q1H1M ONE Stop: 03/24/25 10:02 Last Infusion: 03/24/25 10:43 Dose: Infused Azithromycin 500 mg/ Sodium (Chloride) 250 mls @ 250 mls/hr IV X1 ONE Stop: 03/24/25 12:37 Last Infusion: 03/24/25 15:12 Dose: Infused Ceftriaxone Sodium/Dextrose (Rocephin/D5w 1gm Iv Premix) 1 gm in 50 mls @ 100 mls/hr IV X1 ONE Stop: 03/24/25 12:07 Last Infusion: 03/24/25 13:49 Dose: Infused Sodium Chloride (Ns) 1,000 mls @ 999 mls/hr IV .Q1H1M ONE Stop: 03/24/25 13:36 Last Infusion: 03/24/25 15:13 Dose: Infused Dextrose/Sodium Chloride (D5-1/2ns) 1,000 mls @ 45 mls/hr IV .[id number] [facility] Stop: 04/23/25 14:44 Last Admin: 03/25/25 12:58 Dose: 45 mls/hr Azithromycin 250 mg/ Sterile (Water 2.5 ml/ Sodium Chloride) 252.5 mls @ 252.5 mls/hr IV QDAY [facility] Stop: 04/01/25 10:59 Dextrose/Sodium Chloride (D5-1/2ns) 500 mls @ 999 mls/hr IV .Q31M ONE Stop: 03/25/25 16:47 Dextrose (D5w) 500 mls @ 125 mls/hr IV .Q4H [facility] Stop: 04/24/25 16:29 Dextrose (D5w) 1,000 mls @ 125 mls/hr IV .Q8H [facility] Stop: 04/24/25 16:59 Dextrose (D5w) 1,000 mls @ 80 mls/hr IV .[id number] ONE Stop: 03/26/25 05:30 Midazolam HCl (Midazolam Inj 1 Mg/Ml Vial 2 Ml) 2 mg IVP Q2M PRN PRN Reason: Moderate Sedation Stop: 03/25/25 17:59 Pantoprazole Sodium (Pantoprazole Inj 40 Mg Vial) 80 mg IVP X1 ONE Stop: 03/24/25 10:01 Last Admin: 03/24/25 10:40 Dose: 80 mg Sodium Chloride (Sodium Chloride Rt 10% 15 Ml Nebu) 5 ml INH X1 ONE Stop: 03/24/25 15:12 Last Admin: 03/24/25 23:04 Dose: Not Given Sodium Chloride (Sodium Chloride Rt 10% 15 Ml Nebu) 5 ml INH X1 ONE Stop: 03/24/25 23:04 Last Admin: 03/24/25 23:23 Dose: Not Given Assessment & Plan Plan 85-year-old female with a history of very advanved dementia, hypertension, colon cancer, and a-fib on amiodarone, and PEG tube for long-term feeding support who presents from [facility] for evaluation of coffee-ground emesis. Admitted for sepsis secondary to pneumonia. Cardiology consulted for management of AFib with RVR. #Paroxysmal Atrial Fibrillation Patient with recent dx of Afib from previous hospitalization in february, was well controlled with amiodarone 200mg bid EKG from 03/25 shows sinus rhythm but has runs of Afib with RVR CHADS-VASC score estimated at 4, her risk of stroke is only 3%, but risk of bleeding and falls is very high and not recommend anticoagulation at this point as the risk/benefit does not favor Echo from 02/28/2025: Normal left ventricular size and function. Approximate ejection fraction is 55%. Right ventricle is normal in size and function. Mild- moderate MR with anterior mitral leaflet thickening Aortic valve sclerosis, Mild TR, Trace RI Patient was scheduled to have EGD for coffee ground emesis today however canceled due to Afib RVR Patient has also had difficulty getting IV Abx and IVFs due to mastectomy and very poor IV access Current rate 80-100bpm - Continue Amiodarone 200mg BID - Keep K>4, Mg>2 - monitor telemetry - Treat underlying sepsis #Acute hypoxic respiratory failure #Sepsis secondary to right lower lobe pneumonia #UTI, ruled out #Upper GI bleed #s/p PEG tube #LU, likely prerenal #Hypernatremia #Dementia #Failure to thrive #History of glaucoma #Chronic pelvic pain syndrome Case discussed with my attending Dr. Doron Dillard MD PGY-2 Disclaimer: Despite multiple revisions, due to the dictation software being used, the document bellow may not be free of grammatical errors including phonetic/typographic errors. However, this does not deter from our commitment to providing health care in the patient's best interest in mind.
[2025-03-25] MEDS: DEXTROSE 5%-WATER 1,000 ML 80 ML IV (22:07)
[2025-03-25 23:01] LABS: Sodium 141 mMol/L (136-145)
[2025-03-26] VITALS (19 sets, daily range): BP systolic 70–129; BP diastolic 35–78; PULSE 65–109; RESP 12–77; TEMP 35.9–37.5; O2SAT 93–100; BMI 15.4
[2025-03-26] MEDS: DEXTROSE 5%-NS 1,000 ML 60 ML IV (05:54)
[2025-03-26 06:17] LABS: Basophils # (Auto) 0.1 Thou/mm3 (0.0-0.2); Basophils % (Auto) 0 % (0-2.5); Eosinophils # (Auto) 0.0 Thou/mm3 (0.0-0.5); Eosinophils % (Auto) 0 % (0-10); Hematocrit 21.9 % (36.0-46.0); Immature Granulocytes Auto 0.90 Thou/mm3 (0.00-0.00); Lymphocytes # (Auto) 0.7 Thou/mm3 (1.0-4.8); Lymphocytes % (Auto) 2 % (10-50); Mean Corpuscular HGB Conc 32.4 g/dl (31.0-37.0); Mean Corpuscular Hemoglobin 27.7 pg (25.0-35.0); Mean Corpuscular Volume 86 fL (80-100); Monocytes # (Auto) 0.6 Thou/mm3 (0.0-0.8); Monocytes % (Auto) 2 % (0-12); Neutrophils # (Auto) 26.1 Thou/mm3 (1.8-7.7); Neutrophils % (Auto) 92 % (37-80); Nucleated Red Blood Cell # 0.09 Thou/mm3 (0.00-0.00); Nucleated Red Blood Cell % 0 /100 WBC (0); Platelet Count 482 Thou/mm3 (140-440); RDW Standard Deviation 46.0 fL (36.4-46.3); Red Blood Count 2.56 Miln/mm3 (4.00-5.20); White Blood Count 28.4 Thou/mm3 (3.6-11.0)
[2025-03-26 06:23] LABS: Hemoglobin 7.1 g/dL (12.0-16.0)
[2025-03-26 06:39] LABS: Alanine Aminotransferase 33 U/L (10-49); Albumin, Serum 2.7 gm/dL (3.4-4.8); Albumin/Globulin Ratio 1.2 (1.2-2.2); Alkaline Phosphatase 184 U/L (46-116); Anion Gap 15 (7-16); Aspartate Amino Transferase 44 U/L (0-34); BUN/Creatinine Ratio 20 Ratio (12-20); Bilirubin,Total 0.3 mg/dL (0.3-1.2); Blood Urea Nitrogen 28 mg/dL (9-23); Calcium 8.7 mg/dL (8.3-10.6); Calcium (Corrected) 9.7 mg/dL (8.5-10.1); Carbon Dioxide 17.8 mMol/L (20.0-31.0); Chloride 106 mMol/L (98-107); Creatinine (Component) 1.4 mg/dL (0.6-1.3); Estimated Creatinine Clearance 19.4 mL/min (>60); Globulin 2.3 gm/dL (2.3-3.5); Glucose 62 mg/dL (74-106); Magnesium 1.8 mg/dL (1.6-2.6); Osmolality,Calculated 281 (275-295); Phosphorous 3.1 mg/dL (2.4-5.1); Potassium 3.4 mMol/L (3.4-5.1); Sodium 139 mMol/L (136-145); Total Protein 5.0 gm/dL (5.7-8.2); eGFR 37 See Note
--- NOTE | 2025-03-26 08:48 | PD.RESPRO ---
Documentation for date of: 03/26/25 Subjective Subjective Interval history: 85 y/o female with PMH of dementia, paroxysmal atrial fibrillation, hypertension, diabetes, hyperllipidemia, ulcerative colitis, prior colon cancer, s/p PEG tube, transferred from [facility] to the hospital due to episodes of coffee ground emesis with strong odors x3. Patient is nonverbal, and has difficulty in engage and interact with medical providers. Patient has been consulted with nephrology for evaluation of LU and hypernatremia. ED course: In ED, vitals were: Temp 101F, CT 120, RR 28, BP 117/52, O2sat 90% RA. Labs showed: WBC:27.1, Hgb 8.7, Na 149, BUN 57, Cr 1.6, eGFR 32, Glucose:112, Lactic acid:2.3, BNP:268, Troponin I:0.041 UA: Yellow Hazy colored Urine, Urine protein 1+, RBC 5, WBC 2, Amorphous Crystals Present, Bacteria Rare CXR (03/24/2025): Significant diffuse right lung pneumonia., Mild prominence left ventricle, Prominent osteopenia. In ED, Patient was given, 1L NS bolus IV x1, Azithromycin 500mg IV x1, Pryifwpe8w IV x1, Medical history: As stated above Surgical history: ,abdominal hysterectomy (1976), colon cancer surgery (1986), left ovarian surgery (1986), back surgeries (2008, 2013), right eye cataract surgery (2011), left eye cataract surgery (2014), total hip surgery (2015) Allergies: See list in the EMR Medications: Pending official med rec Family history: Noncontributory Social history: Denies smoking cigarettes, drinking alcohol or using other illicit drugs 03/25/2025: Labs reviewed and patient examined at the bedside. Patient is nonverbal, unable to communicate with medical providers. Patient was unable to receive EGD as she became hypotensive and A.fib. Received 1L D5-0.5NS bolus IV x1. Patient will attempt EGD tomorrow. Continue D5W IV 80ml/hr. Currently, BUN 43, Cr 1.3, eGFR 41, Na150 . 03/26/2025: Labs reviewed and patient examined at the bedside. Patient is nonverbal, unable to communicate with medical providers. Currently, BUN 28, Cr 1.4, eGFR 37, Na 139. Patient's Cr is stable and Sodium level improved. Patient is currently stable in nephrology standpoint. No further recommendations. Exam Vital Signs Temp Pulse Resp BP Pulse Ox O2 Del Method O2 Flow Rate 97.7 F 89 19 99/60 93 L Room Air 2 03/26/25 08:00 03/26/25 08:00 03/26/25 08:00 03/26/25 08:00 03/26/25 08:00 03/26/25 08:00 03/26/25 08:00 Narrative Exam General: Mal-nourished, looks Lethargic Eye: normal conjunctiva, no scleral icterus HENT: Normocephalic, atraumatic, moist oral mucosa Neck: Supple, non-tender, no JVD, no lymphadenopathy Lungs: Non-labored respirations, symmetric chest rise, Clear to auscultate bilaterally, Right lower lobe crackles Heart: Peripheral pulses intact bilaterally, Regular Rhythm, No pitting edema of bilateral LEs, Tachycardic. Abdomen: Soft, non-tender, non-distended, no palpable masses Musculoskeletal: Normal range of motion and strength, No cyanosis or edema, No visible joint swelling Skin: Skin is warm, dry, no rashes or lesions. Psychiatric: Non-verbal, Unable to answer questions. Neuro: Cranial nerves II-XII grossly intact. Objective Labs 03/27/25 06:39 03/27/25 04:20 Labs: Laboratory Results - last 24 hr 03/25/25 03/25/25 03/25/25 10:21 10:45 13:40 WBC 30.8 H RBC 2.95 L Hgb 8.0 L Hct 25.3 L MCV 86 MCH 27.1 MCHC 31.6 RDW Std Deviation 46.1 Plt Count 513 H Neut % (Auto) 94 H Lymph % (Auto) 2 L [place] % (Auto) 2 Eos % (Auto) 0 Baso % (Auto) 0 Neut # (Auto) 28.9 H Lymph # (Auto) 0.5 L [place] # (Auto) 0.7 Eos # (Auto) 0.0 Baso # (Auto) 0.1 Immature Gran # (Auto) 0.62 H Absolute Nucleated RBC 0.06 H Immature Gran % 2 H Nucleated RBC % 0 Puncture Site Left Radial ABG pH 7.48 H ABG pCO2 31 L ABG pO2 78 L ABG HCO3 23 ABG O2 Saturation 97 ABG Base Excess -1 FiO2 21 Sodium 153 H 150 H Potassium Chloride Carbon Dioxide Anion Gap BUN Creatinine Estim Creat Clear Calc eGFR BUN/Creatinine Ratio Glucose Calculated Osmolality Lactic Acid 1.9 Calcium Corrected Calcium Phosphorus Magnesium Total Bilirubin AST ALT Alkaline Phosphatase Ammonia < 10 L Total Protein Albumin Globulin Albumin/Globulin Ratio 03/25/25 03/25/25 03/26/25 18:00 22:03 05:20 WBC 28.4 H RBC 2.56 L Hgb 7.1 L Hct 21.9 L* MCV 86 MCH 27.7 MCHC 32.4 RDW Std Deviation 46.0 Plt Count 482 H D Neut % (Auto) 92 H Lymph % (Auto) 2 L [place] % (Auto) 2 Eos % (Auto) 0 Baso % (Auto) 0 Neut # (Auto) 26.1 H Lymph # (Auto) 0.7 L [place] # (Auto) 0.6 Eos # (Auto) 0.0 Baso # (Auto) 0.1 Immature Gran # (Auto) 0.90 H Absolute Nucleated RBC 0.09 H Immature Gran % 3 H Nucleated RBC % 0 Puncture Site ABG pH ABG pCO2 ABG pO2 ABG HCO3 ABG O2 Saturation ABG Base Excess FiO2 Sodium 148 H 141 139 Potassium 3.4 Chloride 106 Carbon Dioxide 17.8 L Anion Gap 15 BUN 28 H Creatinine 1.4 H Estim Creat Clear Calc 19.4 L eGFR 37 L BUN/Creatinine Ratio 20 Glucose 62 L Calculated Osmolality 281 Lactic Acid Calcium 8.7 Corrected Calcium 9.7 Phosphorus 3.1 Magnesium 1.8 Total Bilirubin 0.3 AST 44 H ALT 33 Alkaline Phosphatase 184 H Ammonia Total Protein 5.0 L Albumin 2.7 L Globulin 2.3 Albumin/Globulin Ratio 1.2 ABG Interpretation ABG results: 03/25/25 10:21 ABG pH 7.48 H ABG pCO2 31 L ABG pO2 78 L ABG HCO3 23 ABG O2 Saturation 97 ABG Base Excess -1 Quality Measures Quality Measures sepsis Current suspected stage: sepsis Possible source: pulmonary Blood cultures ordered: completed in ED Antibiotic ordered: Yes Advance care planning discussed with:: patient Assessment & Plan Assessment Current Active Medications: Generic Name Dose Route Start Last Admin Trade Name Freq PRN Reason Stop Dose Admin Acetaminophen 650 mg 03/25/25 10:04 Acetaminophen 325 Mg Tablet PO 04/24/25 10:03 Q6HR PRN Fever >99.9 Amiodarone HCl 200 mg 03/25/25 09:00 03/25/25 20:15 Amiodarone Hcl 200 Mg Tablet GT 04/24/25 08:59 200 mg BID [facility] Administration Doxycycline Hyclate 100 mg 03/25/25 10:15 03/25/25 20:15 Doxycycline 100 Mg Tablet GT 04/01/25 10:14 100 mg BID [facility] Administration Guaifenesin/Dextromethorphan 1 each 03/25/25 08:10 Guaifenesin/Dm Tablet PO 04/24/25 08:09 BID PRN COUGH Ceftriaxone Sodium/Dextrose 1 gm in 50 mls @ 100 mls/hr 03/25/25 16:05 03/25/25 16:38 Rocephin/D5w 1gm Iv Premix IV 04/01/25 16:04 100 mls/hr QDAY [facility] Administration Dextrose/Sodium Chloride 1,000 mls @ 60 mls/hr 03/26/25 05:45 03/26/25 05:54 D5-Ns IV 03/26/25 22:24 60 mls/hr .[id number] [facility] Administration Multivitamins 1 tab 03/25/25 09:00 03/25/25 09:57 Multivitamins Tablet GT 04/24/25 08:59 1 tab QDAY [facility] Administration Ondansetron HCl 4 mg 03/24/25 14:50 Ondansetron Inj 2 Mg/Ml Inj 2 Ml IVP 04/23/25 14:49 Q6H PRN NAUSEA OR VOMITING Protocol Pantoprazole Sodium 40 mg 03/25/25 09:00 03/25/25 20:15 Pantoprazole Inj 40 Mg Vial IVP 04/24/25 08:59 40 mg BID [facility] Administration Plan 85 y/o female with PMH of dementia, paroxysmal atrial fibrillation, hypertension, diabetes, hyperllipidemia, ulcerative colitis, prior colon cancer, s/p PEG tube, transferred from [facility] to the hospital due to episodes of coffee ground emesis with strong odors x3. Patient is nonverbal, and has difficulty in engage and interact with medical providers. Patient has been consulted with nephrology for evaluation of LU and hypernatremia. #LU, likely prerenal #Hypernatremia with Hyperosmolar state -LU likely prerenal, given improvement with IV fluids -Upon admission, BUN 57 , Cr 1.6 (Baseline of 1.0), eGFR 32 (Baseline of 55), Na: 149 -Acute Hypernatremia (<48hrs) of 153, Calculated Osmolality 312 (Hyperosmolar state), likely secondary to multiple factors; GI bleed with vomit + Sepsis (Fever, Tachypnea, insensible losses) + Inability to drink water (critical illness) -Currently, BUN 28, Cr 1.4, eGFR 37, Na 139. Patient's Cr is stable and Sodium level improved. Patient is currently stable in nephrology standpoint. No further recommendations. Plan: - Monitor renal function and urine output. - Renal dose med, avoid nephrotoxin. - Patient's Cr is stable and Sodium level improved. Patient is currently stable in nephrology standpoint. No further recommendations. #Acute hypoxic respiratory failure #Sepsis secondary to right lower lobe pneumonia #Leukocytosis #Delirium 2/2 Sepsis #hx of E. coli bacteremia sensitive to ceftriaxone #UTI, ruled out #Upper GI bleed #s/p PEG tube #Dementia status post PEG tube #Encephalopathy #hx of Paroxysmal atrial flutter and fibrillation. #Failure to thrive #History of glaucoma #Chronic pelvic pain syndrome -Management per Primary Hospitalist team Thank you for allowing us to participate in the care of your patient. Patient is stable in nephrology standpoint. No further recommendations. Assessment and plan discussed with my attending physician Dr. Didi Steven (PGY-1)- Internal medicine resident Attending Provider Attestation/Addendum Patient seen and examined with resident physician Dr. Steven. Note reviewed, agree with findings and recommendations. Patient has dementia. Family requesting all aggressive measures. Sodium better. continue free water flushes via G tube. Renal will sign off.
[2025-03-26] MEDS: cefTRIAXone/D5w 1gm IV premix 1 GM/50 ML BAG IV (09:39)
[2025-03-26] MEDS: AMIODARONE HCL 200 MG TABLET GT ×2 (09:39→20:20)
[2025-03-26] MEDS: MULTIVITAMINS TABLET 1 TAB GT (09:39)
[2025-03-26] MEDS: DOXYCYCLINE 100 MG TABLET GT ×2 (09:40→20:20)
--- NOTE | 2025-03-26 10:29 | ESPR_ITS ---
<Statement entered by Mehul Sal MD - 03/27/25 16:40> I personally examined evaluated this patient who has known history of paroxysmal atrial fibrillation appears to be going in and out of A-fib now sinus rhythm intermittently A-fib with RVR mostly at night continue amiodarone and other medications evaluated patient with resident physician PGY 2 Dr. Dillard will continue to monitor the patient closely. Documentation for date of: 03/26/25 Subjective Subjective Interval history: Patient seen and examined at the bedside. Vitals and labs reviewed. Telemetry reviewed overnight patient does get into A-fib with RVR rate around the 140s. Currently with soft blood pressure with adequate rate in the 80s. Patient has been having trouble gaining IV access for IV fluids and IV antibiotics. Can continue with amiodarone 200 mg through her PEG tube. Exam Vital Signs Temp Pulse Resp BP Pulse Ox O2 Del Method O2 Flow Rate 97.7 F 89 19 99/60 93 L Room Air 2 03/26/25 08:00 03/26/25 09:39 03/26/25 08:00 03/26/25 09:39 03/26/25 08:00 03/26/25 08:00 03/26/25 08:00 Narrative Exam Physical Exam GENERAL: NAD, mumbles when spoken to, thin, frail HEENT: Dry mucosa. Eyes open, symmetrical, & clear, only opens after stimulation CARDIO: Heart RRR, no obvious murmurs PULM: No noted coughing/dyspnea CTA B/L, no R/W/R GI: Abdomen soft, nondistended, no pain on palpation. PEG tube in place SKIN/MSK/EXT: No wounds/rashes/edema/amputations, no pain on palpation. Pedal pulses present B/L Objective Labs 03/27/25 06:39 03/27/25 04:20 Labs: Laboratory Results - last 24 hr 03/25/25 03/25/25 03/25/25 10:21 10:45 13:40 WBC 30.8 H RBC 2.95 L Hgb 8.0 L Hct 25.3 L MCV 86 MCH 27.1 MCHC 31.6 RDW Std Deviation 46.1 Plt Count 513 H Neut % (Auto) 94 H Lymph % (Auto) 2 L [place] % (Auto) 2 Eos % (Auto) 0 Baso % (Auto) 0 Neut # (Auto) 28.9 H Lymph # (Auto) 0.5 L [place] # (Auto) 0.7 Eos # (Auto) 0.0 Baso # (Auto) 0.1 Immature Gran # (Auto) 0.62 H Absolute Nucleated RBC 0.06 H Immature Gran % 2 H Nucleated RBC % 0 Puncture Site Left Radial ABG pH 7.48 H ABG pCO2 31 L ABG pO2 78 L ABG HCO3 23 ABG O2 Saturation 97 ABG Base Excess -1 FiO2 21 Sodium 153 H 150 H Potassium Chloride Carbon Dioxide Anion Gap BUN Creatinine Estim Creat Clear Calc eGFR BUN/Creatinine Ratio Glucose Calculated Osmolality Lactic Acid 1.9 Calcium Corrected Calcium Phosphorus Magnesium Total Bilirubin AST ALT Alkaline Phosphatase Ammonia < 10 L Total Protein Albumin Globulin Albumin/Globulin Ratio Crossmatch Blood Bank Wristband ID 03/25/25 03/25/25 03/26/25 18:00 22:03 05:20 WBC 28.4 H RBC 2.56 L Hgb 7.1 L Hct 21.9 L* MCV 86 MCH 27.7 MCHC 32.4 RDW Std Deviation 46.0 Plt Count 482 H D Neut % (Auto) 92 H Lymph % (Auto) 2 L [place] % (Auto) 2 Eos % (Auto) 0 Baso % (Auto) 0 Neut # (Auto) 26.1 H Lymph # (Auto) 0.7 L [place] # (Auto) 0.6 Eos # (Auto) 0.0 Baso # (Auto) 0.1 Immature Gran # (Auto) 0.90 H Absolute Nucleated RBC 0.09 H Immature Gran % 3 H Nucleated RBC % 0 Puncture Site ABG pH ABG pCO2 ABG pO2 ABG HCO3 ABG O2 Saturation ABG Base Excess FiO2 Sodium 148 H 141 139 Potassium 3.4 Chloride 106 Carbon Dioxide 17.8 L Anion Gap 15 BUN 28 H Creatinine 1.4 H Estim Creat Clear Calc 19.4 L eGFR 37 L BUN/Creatinine Ratio 20 Glucose 62 L Calculated Osmolality 281 Lactic Acid Calcium 8.7 Corrected Calcium 9.7 Phosphorus 3.1 Magnesium 1.8 Total Bilirubin 0.3 AST 44 H ALT 33 Alkaline Phosphatase 184 H Ammonia Total Protein 5.0 L Albumin 2.7 L Globulin 2.3 Albumin/Globulin Ratio 1.2 Crossmatch Blood Bank Wristband ID 03/26/25 08:48 WBC RBC Hgb Hct MCV MCH MCHC RDW Std Deviation Plt Count Neut % (Auto) Lymph % (Auto) [place] % (Auto) Eos % (Auto) Baso % (Auto) Neut # (Auto) Lymph # (Auto) [place] # (Auto) Eos # (Auto) Baso # (Auto) Immature Gran # (Auto) Absolute Nucleated RBC Immature Gran % Nucleated RBC % Puncture Site ABG pH ABG pCO2 ABG pO2 ABG HCO3 ABG O2 Saturation ABG Base Excess FiO2 Sodium Potassium Chloride Carbon Dioxide Anion Gap BUN Creatinine Estim Creat Clear Calc eGFR BUN/Creatinine Ratio Glucose Calculated Osmolality Lactic Acid Calcium Corrected Calcium Phosphorus Magnesium Total Bilirubin AST ALT Alkaline Phosphatase Ammonia Total Protein Albumin Globulin Albumin/Globulin Ratio Crossmatch See Detail Blood Bank Wristband ID Yes ABG Interpretation ABG results: 03/25/25 10:21 ABG pH 7.48 H ABG pCO2 31 L ABG pO2 78 L ABG HCO3 23 ABG O2 Saturation 97 ABG Base Excess -1 Quality Measures Quality Measures sepsis Current suspected stage: ruled out Possible source: pulmonary Blood cultures ordered: completed in ED Antibiotic ordered: Yes Advance care planning discussed with:: patient Assessment & Plan Assessment Current Active Medications: Generic Name Dose Route Start Last Admin Trade Name Freq PRN Reason Stop Dose Admin Acetaminophen 650 mg 03/25/25 10:04 Acetaminophen 325 Mg Tablet PO 04/24/25 10:03 Q6HR PRN Fever >99.9 Amiodarone HCl 200 mg 03/25/25 09:00 03/26/25 09:39 Amiodarone Hcl 200 Mg Tablet GT 04/24/25 08:59 200 mg BID LORNE Administration Doxycycline Hyclate 100 mg 03/25/25 10:15 03/26/25 09:40 Doxycycline 100 Mg Tablet GT 04/01/25 10:14 100 mg BID LORNE Administration Guaifenesin/Dextromethorphan 1 each 03/25/25 08:10 Guaifenesin/Dm Tablet PO 04/24/25 08:09 BID PRN COUGH Ceftriaxone Sodium/Dextrose 1 gm in 50 mls @ 100 mls/hr 03/25/25 16:05 03/26/25 09:39 Rocephin/D5w 1gm Iv Premix IV 04/01/25 16:04 100 mls/hr QDAY LORNE Administration Dextrose/Sodium Chloride 1,000 mls @ 60 mls/hr 03/26/25 05:45 03/26/25 05:54 D5-Ns IV 03/26/25 22:24 60 mls/hr .[id number] LORNE Administration Multivitamins 1 tab 03/25/25 09:00 03/26/25 09:39 Multivitamins Tablet GT 04/24/25 08:59 1 tab QDAY LORNE Administration Ondansetron HCl 4 mg 03/24/25 14:50 Ondansetron Inj 2 Mg/Ml Inj 2 Ml IVP 04/23/25 14:49 Q6H PRN NAUSEA OR VOMITING Protocol Pantoprazole Sodium 40 mg 03/25/25 09:00 03/26/25 09:39 Pantoprazole Inj 40 Mg Vial IVP 04/24/25 08:59 40 mg BID LORNE Administration Plan 85-year-old female with a history of very advanved dementia, hypertension, colon cancer, and a-fib on amiodarone, and PEG tube for long-term feeding support who presents from [facility] for evaluation of coffee-ground emesis. Admitted for sepsis secondary to pneumonia. Cardiology consulted for management of AFib with RVR. #Paroxysmal Atrial Fibrillation Patient with recent dx of Afib from previous hospitalization in february, was well controlled with amiodarone 200mg bid EKG from 03/25 shows sinus rhythm but has runs of Afib with RVR CHADS-VASC score estimated at 4, her risk of stroke is only 3%, but risk of bleeding and falls is very high and not recommend anticoagulation at this point as the risk/benefit does not favor Echo from 02/28/2025: Normal left ventricular size and function. Approximate ejection fraction is 55%. Right ventricle is normal in size and function. Mild- moderate MR with anterior mitral leaflet thickening Aortic valve sclerosis, Mild TR, Trace MN Patient was scheduled to have EGD for coffee ground emesis today however canceled due to Afib RVR Patient has also had difficulty getting IV Abx and IVFs due to mastectomy and very poor IV access - Continue Amiodarone 200mg BID - Keep K>4, Mg>2 - monitor telemetry - Treat underlying sepsis #Acute hypoxic respiratory failure #Sepsis secondary to right lower lobe pneumonia #UTI, ruled out #Upper GI bleed #s/p PEG tube #LU, likely prerenal #Hypernatremia #Dementia #Failure to thrive #History of glaucoma #Chronic pelvic pain syndrome Case discussed with my attending Dr. Doron Dillard MD PGY-2 Disclaimer: Despite multiple revisions, due to the dictation software being used, the document bellow may not be free of grammatical errors including phonetic/typographic errors. However, this does not deter from our commitment to providing health care in the patient's best interest in mind.
--- NOTE | 2025-03-26 10:41 | PC.SS ---
[employer] conducted phone contact with the patient?s spouse, Adam Thao to conduct initial assessment and to discuss discharge planning on behalf of the patient.? Patient is a resident of [facility].? Patient has been at the [facility] for approximately 3 weeks.? Patient utilizes a wheelchair for mobility.? Patient does not require the use of home oxygen.? Patient requires assistance with the completion of ADL?s.? Patient?s medical surrogate decision maker is spouse, Adam Thao.? SNF PCP p-provides services to the patient.? Patient is in possession of a PEG tube.? [facility] staff monitors patient?s feedings.? Plan is for the patient to return to [facility] at the time of discharge.? Patient does not possess coverage for transportation. ?Patient?s spouse reports inability to cover transport cost.? SS to assist with arranging transportation on behalf of the patient at the time of discharge. ?No discharge needs identified by the patient.? No further intervention required at this time, vp digital marketing social media and crm will be available to address any further concerns.? Next of Kin: Adam Thao D/C Plan: [facility]
[2025-03-26] MEDS: PIPER/TAZO 3.375 GM PREMIX 3.375 GM/50 ML BAG IV ×2 (11:04→20:20)
--- NOTE | 2025-03-26 11:52 | PCS.ST ---
Pt remains NPO for EGD. Speech will follow up with swallow evaluation when appropriate.
--- NOTE | 2025-03-26 13:45 | ESPR_ITS ---
<Statement entered by Juan Jose Piper MD - 04/01/25 07:13> I reviewed above note and agree with findings and plans. I have also personally examined the patient with medicine team and went over assessment and plan with medical team including international project engineer and resident physician. <Statement entered by Bill Jacobs MD - 03/28/25 07:03> Patient examined and case discussed with the team including attending physician. Note reviewed, I agree with the care plan as documented. Please refer to the note below for further details. - Bill Jacobs MD, PGY 3 Disclaimer: The document may contain phonetic/typographic errors due to voice recognition software. These errors are purely due to imperfections in the software program. Documentation for date of: 03/26/25 Subjective Subjective Interval history: Patient was seen and examined at bedside. No acute events took place overnight. Ena is nonverbal, and tremulous in bed although she is well covered in blankets. surveillance dual rate officer shows atrial fibrillation with heart rate 88. Patient is scheduled for EGD today. IV access lines have already been established on the patient. Exam Vital Signs Temp Pulse Resp BP Pulse Ox O2 Del Method O2 Flow Rate 97.5 F 104 H 20 90/57 L 98 Room Air 2 03/26/25 12:00 03/26/25 13:08 03/26/25 13:08 03/26/25 12:00 03/26/25 13:08 03/26/25 12:00 03/26/25 12:00 Narrative Exam General: Patient malnourished and disheveled. Not awake and not answering questions Skin: Intact, Warm, no rashes. HEENT: Normocephalic, Atraumatic. Moist mucous membranes Respiratory: Breath sounds are equal bilaterally with equal chest expansion. Unable to get a complete exam. Cardiovascular:RRR, No murmurs. Distal pulses 2+ Abdomen: Abdomen soft, non-distended, without erythema, or lesions. Nomral bowel sounds. Palpation nontender in all four quadrants, patient retracted when palpating did not verbalize anypain. No organomagely. No guarding or rebound present. Musculoskeletal/Extremities: No erythema, swelling, tenderness of any joints. No edema of BLE. Unable to check ROM Neurologic: Not cheked Objective Labs 03/26/25 05:20 09/05/25 05:20 Labs: Laboratory Results - last 24 hr 03/25/25 03/25/25 03/25/25 13:40 18:00 22:03 WBC 30.8 H RBC 2.95 L Hgb 8.0 L Hct 25.3 L MCV 86 MCH 27.1 MCHC 31.6 RDW Std Deviation 46.1 Plt Count 513 H Neut % (Auto) 94 H Lymph % (Auto) 2 L [place] % (Auto) 2 Eos % (Auto) 0 Baso % (Auto) 0 Neut # (Auto) 28.9 H Lymph # (Auto) 0.5 L [place] # (Auto) 0.7 Eos # (Auto) 0.0 Baso # (Auto) 0.1 Immature Gran # (Auto) 0.62 H Absolute Nucleated RBC 0.06 H Immature Gran % 2 H Nucleated RBC % 0 Sodium 150 H 148 H 141 Potassium Chloride Carbon Dioxide Anion Gap BUN Creatinine Estim Creat Clear Calc eGFR BUN/Creatinine Ratio Glucose Calculated Osmolality Calcium Corrected Calcium Phosphorus Magnesium Total Bilirubin AST ALT Alkaline Phosphatase Total Protein Albumin Globulin Albumin/Globulin Ratio Blood Type Antibody Screen Crossmatch Blood Bank Wristband ID 03/26/25 03/26/25 05:20 08:48 WBC 28.4 H RBC 2.56 L Hgb 7.1 L Hct 21.9 L* MCV 86 MCH 27.7 MCHC 32.4 RDW Std Deviation 46.0 Plt Count 482 H D Neut % (Auto) 92 H Lymph % (Auto) 2 L [place] % (Auto) 2 Eos % (Auto) 0 Baso % (Auto) 0 Neut # (Auto) 26.1 H Lymph # (Auto) 0.7 L [place] # (Auto) 0.6 Eos # (Auto) 0.0 Baso # (Auto) 0.1 Immature Gran # (Auto) 0.90 H Absolute Nucleated RBC 0.09 H Immature Gran % 3 H Nucleated RBC % 0 Sodium 139 Potassium 3.4 Chloride 106 Carbon Dioxide 17.8 L Anion Gap 15 BUN 28 H Creatinine 1.4 H Estim Creat Clear Calc 19.4 L eGFR 37 L BUN/Creatinine Ratio 20 Glucose 62 L Calculated Osmolality 281 Calcium 8.7 Corrected Calcium 9.7 Phosphorus 3.1 Magnesium 1.8 Total Bilirubin 0.3 AST 44 H ALT 33 Alkaline Phosphatase 184 H Total Protein 5.0 L Albumin 2.7 L Globulin 2.3 Albumin/Globulin Ratio 1.2 Blood Type A Positive Antibody Screen NEGATIVE Crossmatch See Detail Blood Bank Wristband ID Yes ABG Interpretation ABG results: 03/25/25 10:21 ABG pH 7.48 H ABG pCO2 31 L ABG pO2 78 L ABG HCO3 23 ABG O2 Saturation 97 ABG Base Excess -1 Quality Measures Quality Measures sepsis Current suspected stage: sepsis Possible source: pulmonary Blood cultures ordered: completed in ED Antibiotic ordered: Yes Advance care planning discussed with:: other Assessment & Plan Assessment Current Active Medications: Generic Name Dose Route Start Last Admin Trade Name Freq PRN Reason Stop Dose Admin Acetaminophen 650 mg 03/25/25 10:04 Acetaminophen 325 Mg Tablet PO 04/24/25 10:03 Q6HR PRN Fever >99.9 Amiodarone HCl 200 mg 03/25/25 09:00 03/26/25 09:39 Amiodarone Hcl 200 Mg Tablet GT 04/24/25 08:59 200 mg BID LORNE Administration Doxycycline Hyclate 100 mg 03/25/25 10:15 03/26/25 09:40 Doxycycline 100 Mg Tablet GT 04/01/25 10:14 100 mg BID LORNE Administration Guaifenesin/Dextromethorphan 1 each 03/25/25 08:10 Guaifenesin/Dm Tablet PO 04/24/25 08:09 BID PRN COUGH Dextrose/Sodium Chloride 1,000 mls @ 60 mls/hr 03/26/25 05:45 03/26/25 05:54 D5-Ns IV 03/26/25 22:24 60 mls/hr .[id number] LORNE Administration Piperacillin/Tazobactam/Dextrose 3.375 gm in 50 mls @ 12.5 mls/hr 03/26/25 21:00 Zosyn IV 04/02/25 20:59 Q12HR LORNE Multivitamins 1 tab 03/25/25 09:00 03/26/25 09:39 Multivitamins Tablet GT 04/24/25 08:59 1 tab QDAY LORNE Administration Ondansetron HCl 4 mg 03/24/25 14:50 Ondansetron Inj 2 Mg/Ml Inj 2 Ml IVP 04/23/25 14:49 Q6H PRN NAUSEA OR VOMITING Protocol Pantoprazole Sodium 40 mg 03/26/25 21:00 Pantoprazole Inj 40 Mg Vial IVP 04/25/25 20:59 BID LORNE Plan 85 year old female with history of dementia, paroxysmal atrial fibrillation, hypertension, diabetes, hyperllipidemia, ulcerative colitis, prior colon cancer, s/p PEG tube presented from [facility] on admission day 2 for sepsis secondary to Right lower lobe pneumonia, acute hypoxic respiratory failure, and anemia secondary to uppper GI bleed. #Acute hypoxic respiratory failure #Sepsis secondary to right lower lobe pneumonia #CAP vs Aspiration pneumonia #Leukocytosis #Delirium 2/2 Sepsis #hx of E. coli bacteremia sensitive to ceftriaxone #UTI, ruled out CXR significant for diffuse right lung pneumonia UA WBC 2, Leukocyte esterase negative, rare urine bacteria. WBC at 28.4 (30.4) SIRS criteria: T 96.9 (>100.9 or <96.8F), RR 30 (>20/min), HR 109 (>90/min), WBC 28.4 (>12 or <4K or Bands >10%). and right lung pneumonia as a source of infection qSOFA 2 CURB-65 score 4: high risk of mortality from CAP warranting inpatient treatment. Blood culture was negative / after 48H. U ctx was also negative. Nasal swab negative for MRSA ? - Started doxycycline GT 100mg bid and Zosyn IV 3.375g twice daily (dose adjustment according to creatinine clearance) - Monitor CBC daily; trend WBC. - F/U blood ctx, urine ctx - Monitor vital signs closely. - Maintain MAP > 65 mmHg. #Acute anemia secondary to upper GI bleed #s/p PEG tube PEG tube placed 02/[address] Montes. Maria Esther-Blatchford bleeding score 15: patient at high risk for GI bleed AIMS65 score: 2: 5.3% risk of in-hospital mortality from upper GI bleed Hgb 7.1 down from baseline 12 EGD 03/26: Esophagitis was found in the lower third of the esophagus. Diffuse mild inflammation characterized by erythema was found in the gastric antrum. The examined duodenum was normal. Plan: -GI Dr Montes consulted, pending fiberoptic endoscopy -Serial CBC -Transfuse if Hgb <7g -IV Protonix 40mg bid #LU, likely prerenal - Improving #Hypernatremia, resolved BUN 57, 43, 24 (03/26), Cr 1.4 (base 1.1) BUN/Cr ratio of 36. Dry mucosa on physical exam. Na: 153, 150,... 139 (03/26) Pt?s creatinine is stable and Na level improved. Plan: - Nephrology consulted, appreciate recommendations - Water flushes PEG tube, 150 ml/h and continue to monitor Na. - NS IV 20mL/h - Monitor renal function and urine output. - Renal dose med, avoid nephrotoxin. #Dementia status post PEG tube #Encephalopathy Progressive confusion and weakness over the past year. Plan: - Resume donepezil 10mg PO QD once mentation imrpoves. Unknown if pt taking Donepezil, Memantine, or Fluoxetine at home. #hx of Paroxysmal atrial flutter and fibrillation. EKG (03/24) showed sinus tachycardia, T wave abnormality consistent with previous EKG. Troponin I .041 CHADS-VASC score estimated at 4. TTE (02/28/2025): LVEF 55%.? Normal LV, RV size and function. Mild-moderate MR with anterior mitral leaflet thickening. Aortic valve sclerosis. Mild TR, Trace NM Patient has a CHADSVASC of 4, but due to dementia, failure to thrive, generalized weakness and falls, the risk of anticoagulation outweighs the benefits. Plan: - cardiology consulted, appreciate recs - Keep K>4, Mg>2 - monitor telemetry - Treat underlying sepsis - Continue Amiodarone 200 mg PEG tube BID - pending repeat EKG - Continuous telemetry monitoring. #Failure to thrive BMI 14.8 Previously, had failed swallow screen. #History of glaucoma #Chronic pelvic pain syndrome -[place] 10-325 PRN Health Maintenance: Code Status: Full DVT Prophylaxis: SCDs GI Prophylaxis: Protonix Diet: NPO pending EGD Renteria: None Lines: PEG tube Supplemental O2: None Disposition: Med tele, pending EGD, discharge to SNF This case was discussed with my attending physician, Dr. Piper, and senior resident, Dr Jacobs. Shelton Jimenez, DO PGY I
--- NOTE | 2025-03-26 14:44 | PC.NURSE ---
Notified Dr Blake Thompson that patient appeared to have hard stool impaction at the rectum. He will speak to the team and see patient at bedside.
[2025-03-26] MEDS: SODIUM CHLORIDE 0.9% 500 ML 500 ML 20 ML IV (17:25)
--- NOTE | 2025-03-26 17:56 | SUR.PHASEI ---
received pt and report from ARMIN Olivo and Dr. Chery. Pt asleep, no distress noted. low BP noted, Dr. Chery made aware. IV to left wrist not flushing. IV to left forearm sluggish to flush. Pt arrived with IV to right foot started in the OR.
--- NOTE | 2025-03-26 18:19 | SUR.PHASEI ---
Dr Chery at pt's bedside closely monitoring and managing pt's BP. Pt is no distress. pt arousable on tactile stimulus.
--- NOTE | 2025-03-26 18:40 | SUR.PHASEI ---
report given to ARMIN Beltran. Pt's VSS. pt arousable to tactile stimulation.
[2025-03-26 21:57] LABS: Hematocrit 20.8 % (36.0-46.0)
[2025-03-26 21:59] LABS: Hemoglobin 6.6 g/dL (12.0-16.0)
[2025-03-26 22:12] LABS: Path Review Blood Smear Sent to Pathologist
[2025-03-27] VITALS (14 sets, daily range): BP systolic 95–116; BP diastolic 44–87; PULSE 79–107; RESP 17–31; TEMP 36.2–36.6; O2SAT 95–100; BMI 15.4
[2025-03-27] MEDS: MIDODRINE 5 MG TABLET 10 MG GT (01:39)
[2025-03-27] MEDS: DEXTROSE 5%-NS 1,000 ML 60 ML IV (04:38)
[2025-03-27 05:53] LABS: Basophils # (Auto) 0.1 Thou/mm3 (0.0-0.2); Basophils % (Auto) 0 % (0-2.5); Eosinophils # (Auto) 0.0 Thou/mm3 (0.0-0.5); Eosinophils % (Auto) 0 % (0-10); Immature Granulocytes Auto 0.94 Thou/mm3 (0.00-0.00); Lymphocytes # (Auto) 0.5 Thou/mm3 (1.0-4.8); Lymphocytes % (Auto) 2 % (10-50); Mean Corpuscular HGB Conc 31.6 g/dl (31.0-37.0); Mean Corpuscular Hemoglobin 27.3 pg (25.0-35.0); Mean Corpuscular Volume 86 fL (80-100); Monocytes # (Auto) 0.5 Thou/mm3 (0.0-0.8); Monocytes % (Auto) 2 % (0-12); Neutrophils # (Auto) 24.7 Thou/mm3 (1.8-7.7); Neutrophils % (Auto) 93 % (37-80); Nucleated Red Blood Cell # 0.03 Thou/mm3 (0.00-0.00); Nucleated Red Blood Cell % 0 /100 WBC (0); Platelet Count 456 Thou/mm3 (140-440); RDW Standard Deviation 47.4 fL (36.4-46.3); Red Blood Count 2.27 Miln/mm3 (4.00-5.20); White Blood Count 26.7 Thou/mm3 (3.6-11.0)
[2025-03-27 06:01] LABS: Hemoglobin 6.2 g/dL (12.0-16.0)
[2025-03-27 06:02] LABS: Hematocrit 19.6 % (36.0-46.0)
[2025-03-27 06:24] LABS: Alanine Aminotransferase 25 U/L (10-49); Albumin, Serum 2.2 gm/dL (3.4-4.8); Albumin/Globulin Ratio 1.2 (1.2-2.2); Alkaline Phosphatase 155 U/L (46-116); Anion Gap 16 (7-16); Aspartate Amino Transferase 28 U/L (0-34); BUN/Creatinine Ratio 19 Ratio (12-20); Bilirubin,Total < 0.2 mg/dL (0.3-1.2); Blood Urea Nitrogen 29 mg/dL (9-23); Calcium 8.0 mg/dL (8.3-10.6); Calcium (Corrected) 9.4 mg/dL (8.5-10.1); Carbon Dioxide 15.9 mMol/L (20.0-31.0); Chloride 114 mMol/L (98-107); Creatinine (Component) 1.5 mg/dL (0.6-1.3); Estimated Creatinine Clearance 18.1 mL/min (>60); Globulin 1.9 gm/dL (2.3-3.5); Glucose 93 mg/dL (74-106); Magnesium 2.0 mg/dL (1.6-2.6); Osmolality,Calculated 296 (275-295); Phosphorous 4.0 mg/dL (2.4-5.1); Potassium 3.1 mMol/L (3.4-5.1); Sodium 146 mMol/L (136-145); Total Protein 4.1 gm/dL (5.7-8.2); eGFR 34 See Note
--- NOTE | 2025-03-27 07:00 | PC.NURSE ---
Notified Md need order for 22g Right foot ok to use, clarfied peg tube feeding orders
[2025-03-27 07:08] LABS: Hematocrit 24.4 % (36.0-46.0)
[2025-03-27 07:28] LABS: Hemoglobin 7.7 g/dL (12.0-16.0)
[2025-03-27] MEDS: AMIODARONE HCL 200 MG TABLET GT ×2 (08:07→20:46)
[2025-03-27] MEDS: PIPER/TAZO 3.375 GM PREMIX 3.375 GM/50 ML BAG IV ×2 (08:07→20:46)
[2025-03-27] MEDS: MULTIVITAMINS TABLET 1 TAB GT (08:07)
[2025-03-27] MEDS: DOXYCYCLINE 100 MG TABLET GT ×2 (08:08→20:47)
[2025-03-27 08:54] LABS: Base Excess -6 (-3-3); HCO3 18 mEq/L (20-26); Inspired Oxygen, FIO2 21 %; O2 Saturation 84 % (91-98); PCO2 28 mmHg (32.0-48.0); pH, Arterial 7.41 (7.35-7.45)
--- NOTE | 2025-03-27 08:56 | PC.RT ---
G sent to lab. Sputum order on hold for now per Dr Blake Williamson
[2025-03-27 09:09] LABS: Allen Test Performed/OK; PO2 48 mmHg (83-108); Puncture Site Right Radial
[2025-03-27] MEDS: MIDODRINE 5 MG TABLET 10 MG PO ×3 (09:43→21:05)
[2025-03-27] MEDS: POTASSIUM CHLORIDE 10% 20 MEQ/15 ML UDC 40 MEQ GT (09:43)
[2025-03-27] MEDS: SODIUM CHLORIDE 0.45 % 1,000 ML 60 ML IV (09:44)
--- NOTE | 2025-03-27 09:51 | XR_ITS ---
Examination: AP chest single view Technique: AP portable semiupright chest single view Date and time: March 27, 2025, 10:22 AM Indications: Shortness of breath today. Findings: Moderate CHF. Moderate enlargement cardiac contour, prominent vascular congestion and perihilar edema Prominent osteopenia. Impression: Moderate CHF
--- NOTE | 2025-03-27 10:07 | ESPR_ITS ---
<Statement entered by Mehul Sal MD - 03/27/25 16:41> I personally evaluate the patient examined with Dr. Dillard PGY2 patient appears to be clinically doing well remains in sinus rhythm whenever she is in sinus rhythm she is rate controlled but close to A-fib RVR intermittently can use either IV diltiazem or low-dose beta-blockers as tolerated for RVR episodes. Evaluated patient with resident physician agree with the treatment plan recommendation as documented. Documentation for date of: 03/27/25 Subjective Subjective Interval history: Patient seen and evaluated at the bedside. Vitals and labs reviewed. Telemetry reviewed found with isolated episodes of Atrial fibrillation with RVR, however rate remains around 80-90s. Hg was found to be low yesterday was transfused however extravasated and Lt upper extremity now purplish. Exam Vital Signs Temp Pulse Resp BP Pulse Ox O2 Del Method O2 Flow Rate 97.1 F 107 H 31 H 110/46 L 100 Room Air 0 03/27/25 08:00 03/27/25 09:43 03/27/25 08:00 03/27/25 09:43 03/27/25 08:00 03/27/25 08:00 03/27/25 02:47 Narrative Exam GENERAL: NAD, mumbles when spoken to, thin, frail HEENT: Dry mucosa. Eyes open, symmetrical, & clear, only opens after stimulation CARDIO: Heart RRR, no obvious murmurs PULM: No noted coughing/dyspnea CTA B/L, no R/W/R GI: Abdomen soft, nondistended, no pain on palpation. PEG tube in place SKIN/MSK/EXT: Left upper extremity hematoma purplish, no pain on palpation. Pedal pulses present B/L Objective Labs 03/27/25 06:39 03/27/25 10:10 Labs: Laboratory Results - last 24 hr 03/26/25 03/26/25 03/27/25 08:48 21:17 04:20 WBC 26.7 H RBC 2.27 L Hgb 6.6 L* 6.2 L* Hct 20.8 L* 19.6 L* MCV 86 MCH 27.3 MCHC 31.6 RDW Std Deviation 47.4 H Plt Count 456 H Neut % (Auto) 93 H Lymph % (Auto) 2 L [place] % (Auto) 2 Eos % (Auto) 0 Baso % (Auto) 0 Neut # (Auto) 24.7 H Lymph # (Auto) 0.5 L [place] # (Auto) 0.5 Eos # (Auto) 0.0 Baso # (Auto) 0.1 Immature Gran # (Auto) 0.94 H Absolute Nucleated RBC 0.03 H Immature Gran % 4 H Nucleated RBC % 0 Smear Path Review Sent to Pathologist Puncture Site ABG pH ABG pCO2 ABG pO2 ABG HCO3 ABG O2 Saturation ABG Base Excess FiO2 Sodium 146 H Potassium 3.1 L Chloride 114 H Carbon Dioxide 15.9 L Anion Gap 16 BUN 29 H Creatinine 1.5 H Estim Creat Clear Calc 18.1 L eGFR 34 L BUN/Creatinine Ratio 19 Glucose 93 Calculated Osmolality 296 H Calcium 8.0 L Corrected Calcium 9.4 Phosphorus 4.0 Magnesium 2.0 Total Bilirubin < 0.2 L AST 28 ALT 25 Alkaline Phosphatase 155 H D Total Protein 4.1 L Albumin 2.2 L D Globulin 1.9 L Albumin/Globulin Ratio 1.2 Blood Type A Positive Antibody Screen NEGATIVE Crossmatch See Detail Blood Bank Wristband ID Yes 03/27/25 03/27/25 06:39 08:49 WBC RBC Hgb 7.7 L D Hct 24.4 L MCV MCH MCHC RDW Std Deviation Plt Count Neut % (Auto) Lymph % (Auto) [place] % (Auto) Eos % (Auto) Baso % (Auto) Neut # (Auto) Lymph # (Auto) [place] # (Auto) Eos # (Auto) Baso # (Auto) Immature Gran # (Auto) Absolute Nucleated RBC Immature Gran % Nucleated RBC % Smear Path Review Puncture Site Right Radial ABG pH 7.41 ABG pCO2 28 L ABG pO2 48 L* D ABG HCO3 18 L ABG O2 Saturation 84 L ABG Base Excess -6 L FiO2 21 Sodium Potassium Chloride Carbon Dioxide Anion Gap BUN Creatinine Estim Creat Clear Calc eGFR BUN/Creatinine Ratio Glucose Calculated Osmolality Calcium Corrected Calcium Phosphorus Magnesium Total Bilirubin AST ALT Alkaline Phosphatase Total Protein Albumin Globulin Albumin/Globulin Ratio Blood Type Antibody Screen Crossmatch Blood Bank Wristband ID ABG Interpretation ABG results: 03/25/25 03/27/25 10:21 08:49 ABG pH 7.48 H 7.41 ABG pCO2 31 L 28 L ABG pO2 78 L 48 L* D ABG HCO3 23 18 L ABG O2 Saturation 97 84 L ABG Base Excess -1 -6 L Quality Measures Quality Measures sepsis Current suspected stage: ruled out Possible source: pulmonary Blood cultures ordered: completed in ED Antibiotic ordered: Yes Advance care planning discussed with:: patient Assessment & Plan Assessment Current Active Medications: Generic Name Dose Route Start Last Admin Trade Name Freq PRN Reason Stop Dose Admin Acetaminophen 650 mg 03/25/25 10:04 Acetaminophen 325 Mg Tablet PO 04/24/25 10:03 Q6HR PRN Fever >99.9 Amiodarone HCl 200 mg 03/25/25 09:00 03/27/25 08:07 Amiodarone Hcl 200 Mg Tablet GT 04/24/25 08:59 200 mg BID LORNE Administration Doxycycline Hyclate 100 mg 03/25/25 10:15 03/27/25 08:08 Doxycycline 100 Mg Tablet GT 04/01/25 10:14 100 mg BID LORNE Administration Guaifenesin/Dextromethorphan 1 each 03/25/25 08:10 Guaifenesin/Dm Tablet PO 04/24/25 08:09 BID PRN COUGH Piperacillin/Tazobactam/Dextrose 3.375 gm in 50 mls @ 12.5 mls/hr 03/26/25 21:00 03/27/25 08:07 Zosyn IV 04/02/25 20:59 12.5 mls/hr Q12HR LORNE Administration Sodium Chloride 500 mls @ 20 mls/hr 03/26/25 17:24 03/26/25 17:25 Ns IV 03/27/25 17:23 20 mls/hr .Q24H ONE Administration Sodium Chloride 1,000 mls @ 60 mls/hr 03/27/25 08:16 03/27/25 09:44 Ns 0.45% IV 04/26/25 08:15 60 mls/hr .[id number] LORNE Administration Midodrine 10 mg 03/27/25 08:15 03/27/25 09:43 Midodrine 5 Mg Tablet PO 04/26/25 08:14 10 mg TID LORNE Administration Multivitamins 1 tab 03/25/25 09:00 03/27/25 08:07 Multivitamins Tablet GT 04/24/25 08:59 1 tab QDAY LORNE Administration Ondansetron HCl 4 mg 03/24/25 14:50 Ondansetron Inj 2 Mg/Ml Inj 2 Ml IVP 04/23/25 14:49 Q6H PRN NAUSEA OR VOMITING Protocol Pantoprazole Sodium 40 mg 03/26/25 21:00 03/27/25 08:08 Pantoprazole Inj 40 Mg Vial IVP 04/25/25 20:59 40 mg BID LORNE Administration Plan 85-year-old female with a history of very advanved dementia, hypertension, colon cancer, and a-fib on amiodarone, and PEG tube for long-term feeding support who presents from [facility] for evaluation of coffee-ground emesis. Admitted for sepsis secondary to pneumonia. Cardiology consulted for management of AFib with RVR. #Paroxysmal Atrial Fibrillation Patient with recent dx of Afib from previous hospitalization in february, was well controlled with amiodarone 200mg bid EKG from 03/25 shows sinus rhythm but has runs of Afib with RVR CHADS-VASC score estimated at 4, her risk of stroke is only 3%, but risk of bleeding and falls is very high and not recommend anticoagulation at this point as the risk/benefit does not favor Echo from 02/28/2025: Normal left ventricular size and function. Approximate ejection fraction is 55%. Right ventricle is normal in size and function. Mild- moderate MR with anterior mitral leaflet thickening Aortic valve sclerosis, Mild TR, Trace AL Patient was scheduled to have EGD for coffee ground emesis today however canceled due to Afib RVR Patient has also had difficulty getting IV Abx and IVFs due to mastectomy and very poor IV access - Continue Amiodarone 200mg GT BID - Keep K>4, Mg>2 - monitor telemetry - Treat underlying sepsis #Acute hypoxic respiratory failure #Sepsis secondary to right lower lobe pneumonia #UTI, ruled out #Upper GI bleed #s/p PEG tube #LU, likely prerenal #Hypernatremia #Dementia #Failure to thrive #History of glaucoma #Chronic pelvic pain syndrome Case discussed with my attending Dr. Doron Dillard MD PGY-2 Disclaimer: Despite multiple revisions, due to the dictation software being used, the document bellow may not be free of grammatical errors including phonetic/typographic errors. However, this does not deter from our commitment to providing health care in the patient's best interest in mind.
[2025-03-27 10:30] LABS: Lactate (Lactic Acid) 2.3 mMol/L (0.4-2.0)
[2025-03-27 10:49] LABS: Albumin, Serum 2.3 gm/dL (3.4-4.8); Anion Gap 12 (7-16); BUN/Creatinine Ratio 21 Ratio (12-20); Blood Urea Nitrogen 30 mg/dL (9-23); Calcium 8.1 mg/dL (8.3-10.6); Calcium (Corrected) 9.5 mg/dL (8.5-10.1); Carbon Dioxide 16.2 mMol/L (20.0-31.0); Chloride 117 mMol/L (98-107); Creatinine (Component) 1.4 mg/dL (0.6-1.3); Estimated Creatinine Clearance 19.4 mL/min (>60); Glucose 115 mg/dL (74-106); Osmolality,Calculated 295 (275-295); Phosphorous 3.4 mg/dL (2.4-5.1); Potassium 3.1 mMol/L (3.4-5.1); Sodium 145 mMol/L (136-145); eGFR 37 See Note
--- NOTE | 2025-03-27 11:53 | PCS.ST ---
MD in room with patient at this time and unable to complete swallow eval. LEAD SOFTWARE TEST ENGINEER will return for formal swallow evaluation, as schedule permits. Continue PEG tube feeds.
--- NOTE | 2025-03-27 12:14 | ESPR_ITS ---
<Statement entered by Juan Jose Piper MD - 04/01/25 07:14> I reviewed above note and agree with findings and plans. I have also personally examined the patient with medicine team and went over assessment and plan with medical team including internal control analyst and resident physician. <Statement entered by Kendell Thompson MD - 03/27/25 13:49> No acute overnight events. Seen and examined at bedside and only access at this time is on right lower extremity. ICU placed femoral line but patient was pulling at it so soft wrist restraints were placed. Transfused 1 unit PRBC and repeat hemoglobin increased from 6.2 to 7.7. Continue with IV antibiotics and continue to monitor cultures. Leukocytosis improving but repeat CXR showed worsening infiltrate in right lower lobe. Suspect possible aspiration and will keep patient n.p.o. at this time. EGD was done and showed esophagitis without source of bleeding. ----- Note reviewed and agree with care plan as documented. Please refer to the note below for further details. Plan discussed with attending physician Dr. Veronique Thompson MD PGY-2 Internal Medicine Documentation for date of: 03/27/25 Subjective Subjective Interval history: Patient was seen and examined at bedside. No acute events took place overnight. Ena is nonverbal, and shivering in bed although she is well covered in blankets. case monitor shows atrial fibrillation with heart rate 90. Patient completed EGD yesterday with insignificant findings. Hemoglobin was low at 6 point 6 at night yesterday and patient was given a unit of PRBC, posttransfusion H&H Hgb 7.7. There is a 22-gauge IV line on the left foot and a femoral central line was placed by ICU. Exam Vital Signs Temp Pulse Resp BP Pulse Ox O2 Del Method O2 Flow Rate 97.1 F 107 H 31 H 110/46 L 100 Room Air 0 03/27/25 08:00 03/27/25 09:43 03/27/25 08:00 03/27/25 09:43 03/27/25 08:00 03/27/25 08:00 03/27/25 02:47 Narrative Exam General: Patient malnourished and disheveled. Not awake and not answering questions Skin: Intact, Warm, no rashes. HEENT: Normocephalic, Atraumatic. Moist mucous membranes. EJ access line. Respiratory: Breath sounds are equal bilaterally with equal chest expansion. Unable to get a complete exam. Cardiovascular:RRR, No murmurs. Distal pulses 2+ Abdomen: Abdomen soft, non-distended, without erythema, or lesions. Nomral bowel sounds. Palpation nontender in all four quadrants, patient retracted when palpating did not verbalize anypain. No organomagely. No guarding or rebound present. Musculoskeletal/Extremities: A large area of a hematoma about the posterior aspect of the forearm and extending up the arm possibly an infiltrate of the blood transfusion the patient received. No edema of BLE. Unable to check ROM. Neurologic: Not cheked Objective Labs 03/27/25 06:39 03/27/25 10:10 Labs: Laboratory Results - last 24 hr 03/26/25 03/26/25 03/27/25 08:48 21:17 04:20 WBC 26.7 H RBC 2.27 L Hgb 6.6 L* 6.2 L* Hct 20.8 L* 19.6 L* MCV 86 MCH 27.3 MCHC 31.6 RDW Std Deviation 47.4 H Plt Count 456 H Neut % (Auto) 93 H Lymph % (Auto) 2 L [place] % (Auto) 2 Eos % (Auto) 0 Baso % (Auto) 0 Neut # (Auto) 24.7 H Lymph # (Auto) 0.5 L [place] # (Auto) 0.5 Eos # (Auto) 0.0 Baso # (Auto) 0.1 Immature Gran # (Auto) 0.94 H Absolute Nucleated RBC 0.03 H Immature Gran % 4 H Nucleated RBC % 0 Smear Path Review Sent to Pathologist Puncture Site ABG pH ABG pCO2 ABG pO2 ABG HCO3 ABG O2 Saturation ABG Base Excess FiO2 Sodium 146 H Potassium 3.1 L Chloride 114 H Carbon Dioxide 15.9 L Anion Gap 16 BUN 29 H Creatinine 1.5 H Estim Creat Clear Calc 18.1 L eGFR 34 L BUN/Creatinine Ratio 19 Glucose 93 Calculated Osmolality 296 H Lactic Acid Calcium 8.0 L Corrected Calcium 9.4 Phosphorus 4.0 Magnesium 2.0 Total Bilirubin < 0.2 L AST 28 ALT 25 Alkaline Phosphatase 155 H D Total Protein 4.1 L Albumin 2.2 L D Globulin 1.9 L Albumin/Globulin Ratio 1.2 Blood Type A Positive Antibody Screen NEGATIVE Crossmatch See Detail Blood Bank Wristband ID Yes 03/27/25 03/27/25 03/27/25 06:39 08:49 10:10 WBC RBC Hgb 7.7 L D Hct 24.4 L MCV MCH MCHC RDW Std Deviation Plt Count Neut % (Auto) Lymph % (Auto) [place] % (Auto) Eos % (Auto) Baso % (Auto) Neut # (Auto) Lymph # (Auto) [place] # (Auto) Eos # (Auto) Baso # (Auto) Immature Gran # (Auto) Absolute Nucleated RBC Immature Gran % Nucleated RBC % Smear Path Review Puncture Site Right Radial ABG pH 7.41 ABG pCO2 28 L ABG pO2 48 L* D ABG HCO3 18 L ABG O2 Saturation 84 L ABG Base Excess -6 L FiO2 21 Sodium 145 Potassium 3.1 L Chloride 117 H Carbon Dioxide 16.2 L Anion Gap 12 BUN 30 H Creatinine 1.4 H Estim Creat Clear Calc 19.4 L eGFR 37 L BUN/Creatinine Ratio 21 H Glucose 115 H Calculated Osmolality 295 Lactic Acid 2.3 H Calcium 8.1 L Corrected Calcium 9.5 Phosphorus 3.4 Magnesium Total Bilirubin AST ALT Alkaline Phosphatase Total Protein Albumin 2.3 L Globulin Albumin/Globulin Ratio Blood Type Antibody Screen Crossmatch Blood Bank Wristband ID ABG Interpretation ABG results: 03/25/25 03/27/25 10:21 08:49 ABG pH 7.48 H 7.41 ABG pCO2 31 L 28 L ABG pO2 78 L 48 L* D ABG HCO3 23 18 L ABG O2 Saturation 97 84 L ABG Base Excess -1 -6 L Quality Measures Quality Measures sepsis Current suspected stage: sepsis Possible source: pulmonary Blood cultures ordered: completed in ED Antibiotic ordered: Yes Advance care planning discussed with:: other Assessment & Plan Assessment Current Active Medications: Generic Name Dose Route Start Last Admin Trade Name Freq PRN Reason Stop Dose Admin Acetaminophen 650 mg 03/25/25 10:04 Acetaminophen 325 Mg Tablet PO 04/24/25 10:03 Q6HR PRN Fever >99.9 Amiodarone HCl 200 mg 03/25/25 09:00 03/27/25 08:07 Amiodarone Hcl 200 Mg Tablet GT 04/24/25 08:59 200 mg BID LORNE Administration Doxycycline Hyclate 100 mg 03/25/25 10:15 03/27/25 08:08 Doxycycline 100 Mg Tablet GT 04/01/25 10:14 100 mg BID LORNE Administration Guaifenesin/Dextromethorphan 1 each 03/25/25 08:10 Guaifenesin/Dm Tablet PO 04/24/25 08:09 BID PRN COUGH Piperacillin/Tazobactam/Dextrose 3.375 gm in 50 mls @ 12.5 mls/hr 03/26/25 21:00 03/27/25 08:07 Zosyn IV 04/02/25 20:59 12.5 mls/hr Q12HR LORNE Administration Sodium Chloride 500 mls @ 20 mls/hr 03/26/25 17:24 03/26/25 17:25 Ns IV 03/27/25 17:23 20 mls/hr .Q24H ONE Administration Sodium Chloride 1,000 mls @ 60 mls/hr 03/27/25 08:16 03/27/25 09:44 Ns 0.45% IV 04/26/25 08:15 60 mls/hr .[id number] LORNE Administration Midodrine 10 mg 03/27/25 08:15 03/27/25 09:43 Midodrine 5 Mg Tablet PO 04/26/25 08:14 10 mg TID LORNE Administration Multivitamins 1 tab 03/25/25 09:00 03/27/25 08:07 Multivitamins Tablet GT 04/24/25 08:59 1 tab QDAY LORNE Administration Ondansetron HCl 4 mg 03/24/25 14:50 Ondansetron Inj 2 Mg/Ml Inj 2 Ml IVP 04/23/25 14:49 Q6H PRN NAUSEA OR VOMITING Protocol Pantoprazole Sodium 40 mg 03/26/25 21:00 03/27/25 08:08 Pantoprazole Inj 40 Mg Vial IVP 04/25/25 20:59 40 mg BID LORNE Administration Plan #Acute hypoxic respiratory failure #Sepsis secondary to right lower lobe pneumonia #CAP vs Aspiration pneumonia #Leukocytosis #Delirium 2/2 Sepsis #hx of E. coli bacteremia sensitive to ceftriaxone #UTI, ruled out UA WBC 2, Leukocyte esterase negative, rare urine bacteria. WBC at 31, 28, 26.7 (03/27) SIRS criteria: T 96.9 (>100.9 or <96.8F), RR 30 (>20/min), HR 109 (>90/min), WBC 28.4 (>12 or <4K or Bands >10%). and right lung pneumonia as a source of infection qSOFA 2 CURB-65 score 4: high risk of mortality from CAP warranting inpatient treatment. Blood culture was negative 08/23 after 48H. U ctx was also negative. Nasal swab negative for MRSA LA 2.3, pO2 based on ABG 48, however POC pulse ox showed 99% saturation on RA Repeat CXR showed diffuse right lung pneumonia with a lower lobe focus - Started doxycycline GT 100mg bid and Zosyn IV 3.375g twice daily (dose adjustment according to creatinine clearance) - repeat LA - Placed on 2L via - Monitor CBC daily; trend WBC. - F/U blood ctx, urine ctx - Monitor vital signs closely. - Maintain MAP > 65 mmHg. #Acute anemia secondary to upper GI bleed #s/p PEG tube PEG tube placed 02/[address] Montes. Maria Esther-Blatchford bleeding score 15: patient at high risk for GI bleed [id number] score: 2: 5.3% risk of in-hospital mortality from upper GI bleed Hgb 7.7 after 1u pRBC for Hgb 6.2 EGD 03/26: Esophagitis was found in the lower third of the esophagus. Diffuse mild inflammation characterized by erythema was found in the gastric antrum. The examined duodenum was normal. Plan: -GI Dr Montes consulted, pending fiberoptic endoscopy -Serial CBC -Transfuse if Hgb <7g -IV Protonix 40mg bid #LU, likely prerenal - Improving #Hypernatremia, resolved BUN 57, 43, 28, 30(03/27), Cr 1.4 (base 1.1) BUN/Cr ratio of 36. Dry mucosa on physical exam. Na: 153, 150,... 139 (03/26) Pt?s creatinine is stable and Na level improved. Plan: - Nephrology consulted, appreciate recommendations - Water flushes PEG tube, 150 ml/h and continue to monitor Na. - NS IV 20mL/h - Monitor renal function and urine output. - Renal dose med, avoid nephrotoxin. #Dementia status post PEG tube #Encephalopathy Progressive confusion and weakness over the past year. Plan: - Resume donepezil 10mg PO QD once mentation imrpoves. Unknown if pt taking Donepezil, Memantine, or Fluoxetine at home. #hx of Paroxysmal atrial flutter and fibrillation. EKG (03/24) showed sinus tachycardia, T wave abnormality consistent with previous EKG. Troponin I .041 CHADS-VASC score estimated at 4. TTE (02/28/2025): LVEF 55%.? Normal LV, RV size and function. Mild-moderate MR with anterior mitral leaflet thickening. Aortic valve sclerosis. Mild TR, Trace GA Patient has a CHADSVASC of 4, but due to dementia, failure to thrive, generalized weakness and falls, the risk of anticoagulation outweighs the benefits. Plan: - cardiology consulted, appreciate recs - Keep K>4, Mg>2 - monitor telemetry - Treat underlying sepsis - Continue Amiodarone 200 mg PEG tube BID - pending repeat EKG - Continuous telemetry monitoring. #Failure to thrive BMI 14.8 Previously, had failed swallow screen. #History of glaucoma #Chronic pelvic pain syndrome -Antigo 10-325 PRN Health Maintenance: Code Status: Full DVT Prophylaxis: SCDs GI Prophylaxis: Protonix Diet: NPO pending EGD Renteria: None Lines: PEG tube Supplemental O2: None Disposition: Med tele, pending EGD, discharge to
[2025-03-27 13:24] LABS: Reflex Lactate? Y
[2025-03-27 14:18] LABS: Lactic Acid, 3 HR 2.4 mMol/L (0.4-2.0)
--- NOTE | 2025-03-27 15:38 | PD.INTPROC ---
PROCEDURES: Procedure Date / Time 03/27/25 11:00 Procedure Narrative Procedure Narrative: Attending Attestation: I was present for entire procedure. No immediate complications. Patient tolerated procedure well with minimal blood loss. Central Line Placement Right Femoral: Indication(s): poor, or inadequate peripheral venous access Informed consent obtained: obtained from surrogate decision maker (Gained consent from via telephone call with nurse Justin acting as witness) Time out done, and the following verified: correct patient, side and site, procedure, patient position and implants and/or equipment Patient placed on monitor/pulse ox: Yes Hand Hygiene: soap & water Max Sterile Barrier Techniques used: cap, mask, sterile gown, sterile gloves and sterile full body drape Central line prep: sterile drapes applied Local anesthesia used: lidocaine 1% Amount of anesthesia used (mL): 5 Ultrasound used for placement: Yes Sterile Technique if Ultrasound used, including sterile gel: yes Central line lumen inserted: triple Post procedure: sutured in place, good blood return, all ports aspirated, flushed, capped and sterile dressing applied Post procedure x-ray: tip of catheter in good position and no pneumothorax seen Patient tolerated procedure: well EBL(ml): 0 Complications: none Procedure comment: Alex Barrett, DO Internal Medicine, PGY-1
--- NOTE | 2025-03-27 17:17 | PD.IMPROG ---
Documentation for date of: 03/27/25 Subjective Subjective Interval history: Patient continues to drop hemoglobin hematocrit latest 26.2 and 19.6 Upper endoscopy did not show any significant findings We will consider doing a fiberoptic colonoscopy which there is no evidence at least in the last 5 years that she had 1 Exam Vital Signs Temp Pulse Resp BP Pulse Ox O2 Del Method O2 Flow Rate 97.1 F 82 31 H 116/87 H 100 Room Air 0 03/27/25 08:00 03/27/25 16:00 03/27/25 08:00 03/27/25 15:11 03/27/25 08:00 03/27/25 08:00 03/27/25 02:47 Objective Labs 03/27/25 06:39 03/27/25 10:10 Labs: Laboratory Results - last 24 hr 03/26/25 03/26/25 03/27/25 08:48 21:17 04:20 WBC 26.7 H RBC 2.27 L Hgb 6.6 L* 6.2 L* Hct 20.8 L* 19.6 L* MCV 86 MCH 27.3 MCHC 31.6 RDW Std Deviation 47.4 H Plt Count 456 H Neut % (Auto) 93 H Lymph % (Auto) 2 L [place] % (Auto) 2 Eos % (Auto) 0 Baso % (Auto) 0 Neut # (Auto) 24.7 H Lymph # (Auto) 0.5 L [place] # (Auto) 0.5 Eos # (Auto) 0.0 Baso # (Auto) 0.1 Immature Gran # (Auto) 0.94 H Absolute Nucleated RBC 0.03 H Immature Gran % 4 H Nucleated RBC % 0 Smear Path Review Sent to Pathologist Puncture Site ABG pH ABG pCO2 ABG pO2 ABG HCO3 ABG O2 Saturation ABG Base Excess FiO2 Sodium 146 H Potassium 3.1 L Chloride 114 H Carbon Dioxide 15.9 L Anion Gap 16 BUN 29 H Creatinine 1.5 H Estim Creat Clear Calc 18.1 L eGFR 34 L BUN/Creatinine Ratio 19 Glucose 93 Calculated Osmolality 296 H Lactic Acid Calcium 8.0 L Corrected Calcium 9.4 Phosphorus 4.0 Magnesium 2.0 Total Bilirubin < 0.2 L AST 28 ALT 25 Alkaline Phosphatase 155 H D Total Protein 4.1 L Albumin 2.2 L D Globulin 1.9 L Albumin/Globulin Ratio 1.2 Blood Type A Positive Antibody Screen NEGATIVE Crossmatch See Detail Blood Bank Wristband ID Yes 03/27/25 03/27/25 03/27/25 06:39 08:49 10:10 WBC RBC Hgb 7.7 L D Hct 24.4 L MCV MCH MCHC RDW Std Deviation Plt Count Neut % (Auto) Lymph % (Auto) [place] % (Auto) Eos % (Auto) Baso % (Auto) Neut # (Auto) Lymph # (Auto) [place] # (Auto) Eos # (Auto) Baso # (Auto) Immature Gran # (Auto) Absolute Nucleated RBC Immature Gran % Nucleated RBC % Smear Path Review Puncture Site Right Radial ABG pH 7.41 ABG pCO2 28 L ABG pO2 48 L* D ABG HCO3 18 L ABG O2 Saturation 84 L ABG Base Excess -6 L FiO2 21 Sodium 145 Potassium 3.1 L Chloride 117 H Carbon Dioxide 16.2 L Anion Gap 12 BUN 30 H Creatinine 1.4 H Estim Creat Clear Calc 19.4 L eGFR 37 L BUN/Creatinine Ratio 21 H Glucose 115 H Calculated Osmolality 295 Lactic Acid 2.3 H Calcium 8.1 L Corrected Calcium 9.5 Phosphorus 3.4 Magnesium Total Bilirubin AST ALT Alkaline Phosphatase Total Protein Albumin 2.3 L Globulin Albumin/Globulin Ratio Blood Type Antibody Screen Crossmatch Blood Bank Wristband ID 03/27/25 14:09 WBC RBC Hgb Hct MCV MCH MCHC RDW Std Deviation Plt Count Neut % (Auto) Lymph % (Auto) [place] % (Auto) Eos % (Auto) Baso % (Auto) Neut # (Auto) Lymph # (Auto) [place] # (Auto) Eos # (Auto) Baso # (Auto) Immature Gran # (Auto) Absolute Nucleated RBC Immature Gran % Nucleated RBC % Smear Path Review Puncture Site ABG pH ABG pCO2 ABG pO2 ABG HCO3 ABG O2 Saturation ABG Base Excess FiO2 Sodium Potassium Chloride Carbon Dioxide Anion Gap BUN Creatinine Estim Creat Clear Calc eGFR BUN/Creatinine Ratio Glucose Calculated Osmolality Lactic Acid 2.4 H Calcium Corrected Calcium Phosphorus Magnesium Total Bilirubin AST ALT Alkaline Phosphatase Total Protein Albumin Globulin Albumin/Globulin Ratio Blood Type Antibody Screen Crossmatch Blood Bank Wristband ID Impressions Impression: Posthemorrhagic anemia requiring transfusion Gastritis Plan Clear liquid diet via the PEG tube GoLytely 4 L via the PEG tube if after 4 L patient is not clean start the second gallon Consent for colonoscopy for further evaluation ABG Interpretation ABG results: 03/25/25 03/27/25 10:21 08:49 ABG pH 7.48 H 7.41 ABG pCO2 31 L 28 L ABG pO2 78 L 48 L* D ABG HCO3 23 18 L ABG O2 Saturation 97 84 L ABG Base Excess -1 -6 L Assessment & Plan A&P Narrative # Coffee-ground hematemesis could be the bleeding from the gastrostomy site with ulceration, possible peptic ulcer disease, possible Annie-Gardner tear # Postoperative anemia plan Fiberoptic esophagogastroduodenoscopy with possible therapeutic intervention possible biopsy under intravenous moderate sedation Consent will be obtained from the conservator and the patient has been scheduled tentatively for tomorrow Serial CBC Transfuse if the hemoglobin drops from 7 g IV Protonix Will follow the patient Other medical problems include Essential hypertension Paroxysmal atrial fibrillation Diabetes mellitus type 2 Questionable history of from the record review UC/colon carcinoma Thank you very much for the opportunity to participate in the care of this patient Time Spent With Patient Time: Total time spent is greater than 50% in coordination of care (as documented) at patient's floor/unit and/or counseling patient:
[2025-03-27] MEDS: NA SU/NAHCO3/KC/PEG (Golytely) 4,000 ML BTL 4000 ML GT (18:09)
[2025-03-28] VITALS (13 sets, daily range): BP systolic 91–136; BP diastolic 45–111; PULSE 63–120; RESP 18–28; TEMP 35.7–36.9; O2SAT 94–100; BMI 15.4
[2025-03-28] MEDS: SODIUM CHLORIDE 0.45 % 1,000 ML 60 ML IV (03:52)
[2025-03-28] MEDS: MIDODRINE 5 MG TABLET 10 MG PO ×2 (05:22→21:31)
[2025-03-28] MEDS: DEXTROSE 50%-WATER INJ 50 ML SYRINGE IVP (05:58)
[2025-03-28 06:29] LABS: Basophils # (Auto) 0.0 Thou/mm3 (0.0-0.2); Basophils % (Auto) 0 % (0-2.5); Eosinophils # (Auto) 0.1 Thou/mm3 (0.0-0.5); Eosinophils % (Auto) 1 % (0-10); Immature Granulocytes Auto 1.05 Thou/mm3 (0.00-0.00); Lymphocytes # (Auto) 0.7 Thou/mm3 (1.0-4.8); Lymphocytes % (Auto) 4 % (10-50); Mean Corpuscular HGB Conc 32.5 g/dl (31.0-37.0); Mean Corpuscular Hemoglobin 27.5 pg (25.0-35.0); Mean Corpuscular Volume 85 fL (80-100); Monocytes # (Auto) 0.4 Thou/mm3 (0.0-0.8); Monocytes % (Auto) 2 % (0-12); Neutrophils # (Auto) 14.5 Thou/mm3 (1.8-7.7); Neutrophils % (Auto) 87 % (37-80); Nucleated Red Blood Cell # 0.03 Thou/mm3 (0.00-0.00); Nucleated Red Blood Cell % 0 /100 WBC (0); Platelet Count 477 Thou/mm3 (140-440); RDW Standard Deviation 45.8 fL (36.4-46.3); Red Blood Count 2.40 Miln/mm3 (4.00-5.20); White Blood Count 16.8 Thou/mm3 (3.6-11.0)
[2025-03-28 06:36] LABS: Hematocrit 20.3 % (36.0-46.0); Hemoglobin 6.6 g/dL (12.0-16.0)
[2025-03-28 07:28] LABS: Alanine Aminotransferase 30 U/L (10-49); Albumin, Serum 2.3 gm/dL (3.4-4.8); Albumin/Globulin Ratio 1.1 (1.2-2.2); Alkaline Phosphatase 144 U/L (46-116); Anion Gap 15 (7-16); Aspartate Amino Transferase 32 U/L (0-34); BUN/Creatinine Ratio 17 Ratio (12-20); Bilirubin,Total 0.3 mg/dL (0.3-1.2); Blood Urea Nitrogen 19 mg/dL (9-23); Calcium 8.0 mg/dL (8.3-10.6); Calcium (Corrected) 9.4 mg/dL (8.5-10.1); Carbon Dioxide 19.0 mMol/L (20.0-31.0); Chloride 117 mMol/L (98-107); Creatinine (Component) 1.1 mg/dL (0.6-1.3); Estimated Creatinine Clearance 24.7 mL/min (>60); Globulin 2.1 gm/dL (2.3-3.5); Glucose 69 mg/dL (74-106); Magnesium 1.8 mg/dL (1.6-2.6); Osmolality,Calculated 300 (275-295); Potassium 3.1 mMol/L (3.4-5.1); Sodium 151 mMol/L (136-145); Total Protein 4.4 gm/dL (5.7-8.2); eGFR 50 See Note
[2025-03-28] MEDS: MULTIVITAMINS TABLET 1 TAB GT (09:05)
[2025-03-28] MEDS: DOXYCYCLINE 100 MG TABLET GT ×2 (09:05→21:31)
[2025-03-28] MEDS: AMIODARONE HCL 200 MG TABLET GT ×2 (09:05→21:31)
[2025-03-28] MEDS: PIPER/TAZO 3.375 GM PREMIX 3.375 GM/50 ML BAG IV ×2 (09:07→20:30)
[2025-03-28 09:45] LABS: Lactate (Lactic Acid) 1.0 mMol/L (0.4-2.0)
[2025-03-28] MEDS: DEXTROSE 5%-WATER 1,000 ML 80 ML IV (11:26)
[2025-03-28] MEDS: Magnesium Sulfate 2 GM Ivpb 2 GM/50 ML BAG IV ×2 (11:26→19:12)
[2025-03-28] MEDS: DEXTROSE 5%-WATER 500 ML 125 ML IV (11:34)
[2025-03-28] MEDS: POT PHOS 15 mMol in NS 250 ML 15 MMOL/250 ML BAG 80 MMOL IV ×2 (11:37→15:23)
[2025-03-28] MEDS: DEXTROSE 5%-WATER 1,000 ML 100 ML IV (11:45)
--- NOTE | 2025-03-28 12:05 | PCS.ST ---
pt unable to follow directions. Pt is unable to manipulate bolus in mouth at this time. RELEASE MANAGER will attempt swallow evaluation for pleasure feeds when pt is willing to participate. Please continue PEG tube feeds.
[2025-03-28] MEDS: NA SU/NAHCO3/KC/PEG (Golytely) 4,000 ML BTL 4000 ML GT (13:05)
--- NOTE | 2025-03-28 13:50 | PC.NURSE ---
spoke with Gene and updated on status and received consent from him for endoscopy and colonoscopy
[2025-03-28 15:31] LABS: Hematocrit 26.3 % (36.0-46.0)
--- NOTE | 2025-03-28 15:33 | ESPR_ITS ---
<Statement entered by Juan Jose Piper MD - 04/01/25 14:17> I reviewed above note and agree with findings and plans. I have also personally examined the patient with medicine team and went over assessment and plan with medical team including sourcing intern and resident physician. <Statement entered by Bill Jacobs MD - 03/29/25 08:02> Patient examined and case discussed with the team including attending physician. Note reviewed, I agree with the care plan as documented. Please refer to the note below for further details. - Bill Jacobs MD, PGY 3 Disclaimer: The document may contain phonetic/typographic errors due to voice recognition software. These errors are purely due to imperfections in the software program. Documentation for date of: 03/28/25 Subjective Subjective Interval history: Patient was seen and examined at bedside. No acute events took place overnight. Ena is nonverbal, and shivering in bed although she is well covered in blankets. backing in machine tender shows atrial fibrillation with heart rate 91. Interspersed run of PVCs. The patient has been nonverbal during her hospital course. Nurse said that she had heard her say stop before and that she was saying tired yesterday. When the nurse attempted to insert a Renteria catheter, she noted solid brown substance concerning for stool in the urinary tract. Consider [place] vesicle fistula in the setting of ulcerative colitis. Rectal tube has also been inserted and defecation is red-brown after ingestion of GoLytely through PEG tube. Patient will need additional GoLytely until clear for colonoscopy. Spoke to the who is the primary decision-maker for the patient yesterday about goals of care and gave him a day clear picture of the patient's medical condition. He wanted the patient to stay as full code. There is a 22-gauge IV line on the left foot and a femoral central line was placed by ICU. Exam Vital Signs Temp Pulse Resp BP Pulse Ox O2 Del Method O2 Flow Rate 96.4 F L 78 28 H 136/111 H 100 Room Air 0 03/28/25 13:44 03/28/25 13:44 03/28/25 13:44 03/28/25 13:44 03/28/25 13:44 03/28/25 12:00 03/28/25 13:44 Narrative Exam General: Patient malnourished and disheveled. Not awake and not answering questions Skin: Intact, Warm, no rashes. HEENT: Normocephalic, Atraumatic. Moist mucous membranes. EJ access line. Respiratory: Breath sounds are equal bilaterally with equal chest expansion. Unable to get a complete exam. Cardiovascular:RRR, No murmurs. Distal pulses 2+ Abdomen: Abdomen soft, non-distended, without erythema, or lesions. Nomral bowel sounds. Palpation nontender in all four quadrants, patient retracted when palpating did not verbalize anypain. No organomagely. No guarding or rebound present. Musculoskeletal/Extremities: A large area of a hematoma about the posterior aspect of the forearm and extending up the arm possibly an infiltrate of the blood transfusion the patient received. No edema of BLE. Unable to check ROM. Neurologic: Not cheked Objective Labs 03/28/25 15:15 03/28/25 15:15 Labs: Laboratory Results - last 24 hr 03/26/25 03/28/25 03/28/25 08:48 05:53 09:30 WBC 16.8 H D RBC 2.40 L Hgb 6.6 L* Hct 20.3 L* MCV 85 MCH 27.5 MCHC 32.5 RDW Std Deviation 45.8 Plt Count 477 H Neut % (Auto) 87 H Lymph % (Auto) 4 L [place] % (Auto) 2 Eos % (Auto) 1 Baso % (Auto) 0 Neut # (Auto) 14.5 H Lymph # (Auto) 0.7 L [place] # (Auto) 0.4 Eos # (Auto) 0.1 Baso # (Auto) 0.0 Immature Gran # (Auto) 1.05 H Absolute Nucleated RBC 0.03 H Immature Gran % 6 H Nucleated RBC % 0 Sodium 151 H Potassium 3.1 L Chloride 117 H Carbon Dioxide 19.0 L Anion Gap 15 BUN 19 Creatinine 1.1 Estim Creat Clear Calc 24.7 L eGFR 50 L BUN/Creatinine Ratio 17 Glucose 69 L Calculated Osmolality 300 H Lactic Acid 1.0 Calcium 8.0 L Corrected Calcium 9.4 Magnesium 1.8 Total Bilirubin 0.3 AST 32 ALT 30 Alkaline Phosphatase 144 H Total Protein 4.4 L Albumin 2.3 L Globulin 2.1 L Albumin/Globulin Ratio 1.1 L Blood Type A Positive Antibody Screen NEGATIVE Crossmatch See Detail Blood Bank Wristband ID Yes ABG Interpretation ABG results: 03/25/25 03/27/25 10:21 08:49 ABG pH 7.48 H 7.41 ABG pCO2 31 L 28 L ABG pO2 78 L 48 L* D ABG HCO3 23 18 L ABG O2 Saturation 97 84 L ABG Base Excess -1 -6 L Quality Measures Quality Measures sepsis Current suspected stage: sepsis Possible source: pulmonary Blood cultures ordered: completed in ED Antibiotic ordered: Yes Advance care planning discussed with:: other Assessment & Plan Assessment Current Active Medications: Generic Name Dose Route Start Last Admin Trade Name Freq PRN Reason Stop Dose Admin Acetaminophen 650 mg 03/25/25 10:04 Acetaminophen 325 Mg Tablet PO 04/24/25 10:03 Q6HR PRN Fever >99.9 Amiodarone HCl 200 mg 03/25/25 09:00 03/28/25 09:05 Amiodarone Hcl 200 Mg Tablet GT 04/24/25 08:59 200 mg BID LORNE Administration Doxycycline Hyclate 100 mg 03/25/25 10:15 03/28/25 09:05 Doxycycline 100 Mg Tablet GT 04/01/25 10:14 100 mg BID LORNE Administration Guaifenesin/Dextromethorphan 1 each 03/25/25 08:10 Guaifenesin/Dm Tablet PO 04/24/25 08:09 BID PRN COUGH Piperacillin/Tazobactam/Dextrose 3.375 gm in 50 mls @ 12.5 mls/hr 03/26/25 21:00 03/28/25 09:07 Zosyn IV 04/02/25 20:59 12.5 mls/hr Q12HR LORNE Administration Potassium Phosphate 15 mmol in 250 mls @ 80 mls/hr 03/28/25 10:05 03/28/25 15:23 Pot Phos 15 Mmol In Ns 250 Ml IV 03/28/25 17:13 80 mls/hr Q4H LORNE Administration Dextrose 1,000 mls @ 100 mls/hr 03/28/25 11:35 03/28/25 11:45 D5w IV 03/28/25 20:06 100 mls/hr .Q10H ONE Administration Midodrine 10 mg 03/27/25 08:15 03/28/25 14:03 Midodrine 5 Mg Tablet PO 04/26/25 08:14 Not Given TID LORNE Multivitamins 1 tab 03/25/25 09:00 03/28/25 09:05 Multivitamins Tablet GT 04/24/25 08:59 1 tab QDAY LORNE Administration Ondansetron HCl 4 mg 03/24/25 14:50 Ondansetron Inj 2 Mg/Ml Inj 2 Ml IVP 04/23/25 14:49 Q6H PRN NAUSEA OR VOMITING Protocol Pantoprazole Sodium 40 mg 03/26/25 21:00 03/28/25 09:08 Pantoprazole Inj 40 Mg Vial IVP 04/25/25 20:59 40 mg BID LORNE Administration Plan 85 year old female with history of dementia, paroxysmal atrial fibrillation, hypertension, diabetes, hyperllipidemia, ulcerative colitis, prior colon cancer, s/p PEG tube presented from [facility] on admission day 2 for sepsis secondary to Right lower lobe pneumonia, acute hypoxic respiratory failure, and anemia secondary to GI bleed. #Acute hypoxemic respiratory failure #Sepsis secondary to right lower lobe pneumonia #CAP vs Aspiration pneumonia WBC at 31, 28, 26.7 (03/27) SIRS criteria: T 96.9 (>100.9 or <96.8F), RR 30 (>20/min), HR 109 (>90/min), WBC 28.4 (>12 or <4K or Bands >10%). and right lung pneumonia as a source of infection qSOFA 2 CURB-65 score 4: high risk of mortality from CAP warranting inpatient treatment. Blood culture was negative / after 48H. U ctx was also negative. Nasal swab negative for MRSA LA 2.3, pO2 based on ABG 48, however POC pulse ox showed 99% saturation on RA Repeat CXR showed diffuse right lung pneumonia with a lower lobe focus - Started doxycycline GT 100mg bid and Zosyn IV 3.375g twice daily (dose adjustment according to creatinine clearance) - repeat LA - Placed on 2L via - Monitor CBC daily; trend WBC. - F/U blood ctx, urine ctx - Monitor vital signs closely. - Maintain MAP > 65 mmHg. #Acute anemia secondary to GI bleed #s/p PEG tube PEG tube placed 02/[address] Montes. [place] bleeding score 15: patient at high risk for GI bleed AIMS65 score: 2: 5.3% risk of in-hospital mortality from upper GI bleed Hgb 7.7 after 1u pRBC for Hgb 6.2; gave a second unit on 03/28, and Hgb luci to 8.6 from 6.6. EGD 03/26: Esophagitis was found in the lower third of the esophagus. Diffuse mild inflammation characterized by erythema was found in the gastric antrum. The examined duodenum was normal. Plan: -GI Dr Montes consulted, pending colonoscopy -Serial CBC -Transfuse if Hgb <7g -IV Protonix 40mg bid #LU, likely prerenal - Improving #Hypernatremia, resolved BUN 57, 43, 28, 30, 12 (03/28), Cr 1.0 (base 1.1) BUN/Cr ratio of 36. Dry mucosa on physical exam. Na: 153, 150,... 139 (03/26) Pt?s creatinine is stable and Na level improved. Plan: - Nephrology consulted, appreciate recommendations - Water flushes PEG tube, 150 ml/h and continue to monitor Na. - D5W 1L 125mL/h - Monitor renal function and urine output. - Renal dose med, avoid nephrotoxin. #Hypokalemia K+ 3.2, gave 60mEq of KCl with post-infusion K+ check #Dementia status post PEG tube #Encephalopathy Progressive confusion and weakness over the past year. Plan: - Resume donepezil 10mg PO QD once mentation imrpoves. Unknown if pt taking Donepezil, Memantine, or Fluoxetine at home. #hx of Paroxysmal atrial flutter and fibrillation. EKG (03/24) showed sinus tachycardia, T wave abnormality consistent with previous EKG. Troponin I .041 CHADS-VASC score estimated at 4. TTE (02/28/2025): LVEF 55%.? Normal LV, RV size and function. Mild-moderate MR with anterior mitral leaflet thickening. Aortic valve sclerosis. Mild TR, Trace CO Patient has a CHADSVASC of 4, but due to dementia, failure to thrive, generalized weakness and falls, the risk of anticoagulation outweighs the benefits. Plan: - cardiology consulted, appreciate recs - Keep K>4, Mg>2 - monitor telemetry - Treat underlying sepsis - Continue Amiodarone 200 mg PEG tube BID - pending repeat EKG - Continuous telemetry monitoring. #Failure to thrive BMI 14.8 Previously, had failed swallow screen. #History of glaucoma #Chronic pelvic pain syndrome -Reading 10-325 PRN Health Maintenance: Code Status: Full DVT Prophylaxis: SCDs GI Prophylaxis: Protonix Diet: NPO pending EGD Renteria: None Lines: PEG tube Supplemental O2: None Disposition: Med tele, pending EGD, discharge to
[2025-03-28 15:43] LABS: Hemoglobin 8.6 g/dL (12.0-16.0)
[2025-03-28 16:12] LABS: Albumin, Serum 2.2 gm/dL (3.4-4.8); Anion Gap 14 (7-16); BUN/Creatinine Ratio 12 Ratio (12-20); Blood Urea Nitrogen 12 mg/dL (9-23); Calcium 7.4 mg/dL (8.3-10.6); Calcium (Corrected) 8.8 mg/dL (8.5-10.1); Carbon Dioxide 18.0 mMol/L (20.0-31.0); Chloride 116 mMol/L (98-107); Creatinine (Component) 1.0 mg/dL (0.6-1.3); Estimated Creatinine Clearance 27.1 mL/min (>60); Glucose 122 mg/dL (74-106); Osmolality,Calculated 294 (275-295); Phosphorous 4.1 mg/dL (2.4-5.1); Potassium 3.2 mMol/L (3.4-5.1); Sodium 148 mMol/L (136-145); eGFR 56 See Note
--- NOTE | 2025-03-28 16:54 | ESPR_ITS ---
Documentation for date of: 03/28/25 Subjective Subjective Interval history: Patient hemoglobin hematocrit did drop to 6.6 requiring blood transfusion First gallon GoLytely was completed but she is not clear second gallon is in progress Colonoscopy postponed to tomorrow Exam Vital Signs Temp Pulse Resp BP Pulse Ox O2 Del Method O2 Flow Rate 96.4 F L 96 28 H 136/111 H 100 Room Air 0 03/28/25 13:44 03/28/25 16:00 03/28/25 13:44 03/28/25 13:44 03/28/25 13:44 03/28/25 12:00 03/28/25 13:44 Objective Labs 03/28/25 15:15 03/28/25 15:15 Labs: Laboratory Results - last 24 hr 03/26/25 03/28/25 03/28/25 08:48 05:53 09:30 WBC 16.8 H D RBC 2.40 L Hgb 6.6 L* Hct 20.3 L* MCV 85 MCH 27.5 MCHC 32.5 RDW Std Deviation 45.8 Plt Count 477 H Neut % (Auto) 87 H Lymph % (Auto) 4 L [place] % (Auto) 2 Eos % (Auto) 1 Baso % (Auto) 0 Neut # (Auto) 14.5 H Lymph # (Auto) 0.7 L [place] # (Auto) 0.4 Eos # (Auto) 0.1 Baso # (Auto) 0.0 Immature Gran # (Auto) 1.05 H Absolute Nucleated RBC 0.03 H Immature Gran % 6 H Nucleated RBC % 0 Sodium 151 H Potassium 3.1 L Chloride 117 H Carbon Dioxide 19.0 L Anion Gap 15 BUN 19 Creatinine 1.1 Estim Creat Clear Calc 24.7 L eGFR 50 L BUN/Creatinine Ratio 17 Glucose 69 L Calculated Osmolality 300 H Lactic Acid 1.0 Calcium 8.0 L Corrected Calcium 9.4 Phosphorus Magnesium 1.8 Total Bilirubin 0.3 AST 32 ALT 30 Alkaline Phosphatase 144 H Total Protein 4.4 L Albumin 2.3 L Globulin 2.1 L Albumin/Globulin Ratio 1.1 L Blood Type A Positive Antibody Screen NEGATIVE Crossmatch See Detail Blood Bank Wristband ID Yes 03/28/25 15:15 WBC RBC Hgb 8.6 L D Hct 26.3 L MCV MCH MCHC RDW Std Deviation Plt Count Neut % (Auto) Lymph % (Auto) [place] % (Auto) Eos % (Auto) Baso % (Auto) Neut # (Auto) Lymph # (Auto) [place] # (Auto) Eos # (Auto) Baso # (Auto) Immature Gran # (Auto) Absolute Nucleated RBC Immature Gran % Nucleated RBC % Sodium 148 H Potassium 3.2 L Chloride 116 H Carbon Dioxide 18.0 L Anion Gap 14 BUN 12 Creatinine 1.0 Estim Creat Clear Calc 27.1 L eGFR 56 L BUN/Creatinine Ratio 12 Glucose 122 H D Calculated Osmolality 294 Lactic Acid Calcium 7.4 L Corrected Calcium 8.8 Phosphorus 4.1 Magnesium Total Bilirubin AST ALT Alkaline Phosphatase Total Protein Albumin 2.2 L Globulin Albumin/Globulin Ratio Blood Type Antibody Screen Crossmatch Blood Bank Wristband ID Impressions Impression: Posthemorrhagic anemia Colonoscopy prep in progress ABG Interpretation ABG results: 03/25/25 03/27/25 10:21 08:49 ABG pH 7.48 H 7.41 ABG pCO2 31 L 28 L ABG pO2 78 L 48 L* D ABG HCO3 23 18 L ABG O2 Saturation 97 84 L ABG Base Excess -1 -6 L Assessment & Plan A&P Narrative # Coffee-ground hematemesis could be the bleeding from the gastrostomy site with ulceration, possible peptic ulcer disease, possible Annie-Gardner tear # Postoperative anemia plan Fiberoptic esophagogastroduodenoscopy with possible therapeutic intervention possible biopsy under intravenous moderate sedation Consent will be obtained from the conservator and the patient has been scheduled tentatively for tomorrow Serial CBC Transfuse if the hemoglobin drops from 7 g IV Protonix Will follow the patient Other medical problems include Essential hypertension Paroxysmal atrial fibrillation Diabetes mellitus type 2 Questionable history of from the record review UC/colon carcinoma Thank you very much for the opportunity to participate in the care of this patient Time Spent With Patient Time: Total time spent is greater than 50% in coordination of care (as documented) at patient's floor/unit and/or counseling patient:
[2025-03-28] MEDS: POTASSIUM CHL 20 mEq IVPB 20 MEQ/100 ML BAG 50 MEQ IV ×3 (19:16→22:39)
[2025-03-29] VITALS (10 sets, daily range): BP systolic 105–154; BP diastolic 48–85; PULSE 59–89; RESP 11–19; TEMP 36.1–36.8; O2SAT 93–97; BMI 18.1
[2025-03-29 02:04] LABS: Potassium 4.3 mMol/L (3.4-5.1)
[2025-03-29] MEDS: MIDODRINE 5 MG TABLET 10 MG PO (05:40)
[2025-03-29 06:07] LABS: Basophils # (Auto) 0.0 Thou/mm3 (0.0-0.2); Basophils % (Auto) 0 % (0-2.5); Eosinophils # (Auto) 0.1 Thou/mm3 (0.0-0.5); Eosinophils % (Auto) 1 % (0-10); Hematocrit 26.7 % (36.0-46.0); Hemoglobin 9.0 g/dL (12.0-16.0); Immature Granulocytes Auto 0.69 Thou/mm3 (0.00-0.00); Lymphocytes # (Auto) 0.4 Thou/mm3 (1.0-4.8); Lymphocytes % (Auto) 4 % (10-50); Mean Corpuscular HGB Conc 33.7 g/dl (31.0-37.0); Mean Corpuscular Hemoglobin 28.1 pg (25.0-35.0); Mean Corpuscular Volume 83 fL (80-100); Monocytes # (Auto) 0.2 Thou/mm3 (0.0-0.8); Monocytes % (Auto) 2 % (0-12); Neutrophils # (Auto) 9.2 Thou/mm3 (1.8-7.7); Neutrophils % (Auto) 86 % (37-80); Nucleated Red Blood Cell # 0.02 Thou/mm3 (0.00-0.00); Nucleated Red Blood Cell % 0 /100 WBC (0); Platelet Count 491 Thou/mm3 (140-440); RDW Standard Deviation 45.4 fL (36.4-46.3); Red Blood Count 3.20 Miln/mm3 (4.00-5.20); White Blood Count 10.7 Thou/mm3 (3.6-11.0)
[2025-03-29 06:28] LABS: Alanine Aminotransferase 34 U/L (10-49); Albumin, Serum 2.3 gm/dL (3.4-4.8); Albumin/Globulin Ratio 1.2 (1.2-2.2); Alkaline Phosphatase 135 U/L (46-116); Anion Gap 14 (7-16); Aspartate Amino Transferase 33 U/L (0-34); BUN/Creatinine Ratio 12 Ratio (12-20); Bilirubin,Total 0.3 mg/dL (0.3-1.2); Blood Urea Nitrogen 11 mg/dL (9-23); Calcium 7.7 mg/dL (8.3-10.6); Calcium (Corrected) 9.1 mg/dL (8.5-10.1); Carbon Dioxide 19.6 mMol/L (20.0-31.0); Chloride 112 mMol/L (98-107); Creatinine (Component) 0.9 mg/dL (0.6-1.3); Estimated Creatinine Clearance 35.4 mL/min (>60); Globulin 1.9 gm/dL (2.3-3.5); Glucose 68 mg/dL (74-106); Magnesium 2.4 mg/dL (1.6-2.6); Osmolality,Calculated 287 (275-295); Potassium 4.1 mMol/L (3.4-5.1); Sodium 146 mMol/L (136-145); Total Protein 4.2 gm/dL (5.7-8.2); eGFR > 60 See Note
[2025-03-29] MEDS: DEXTROSE 50%-WATER INJ 50 ML SYRINGE 25 ML IV (06:28)
[2025-03-29] MEDS: AMIODARONE HCL 200 MG TABLET GT ×2 (08:38→20:23)
[2025-03-29] MEDS: DOXYCYCLINE 100 MG TABLET GT ×2 (08:38→20:23)
[2025-03-29] MEDS: PIPER/TAZO 3.375 GM PREMIX 3.375 GM/50 ML BAG IV ×2 (08:44→20:23)
[2025-03-29] MEDS: DEXTROSE 5%-WATER 500 ML 100 ML IV (08:55)
--- NOTE | 2025-03-29 09:14 | ESPR_ITS ---
RE: MELLY SMILEY : 1940 DATE OF SERVICE: 03/28/2025 Cardiology followup SUBJECTIVE: The patient is an 85-year-old lady known to me with history of paroxysmal atrial fibrillation, admitted to the hospital for gastrointestinal bleeding, recurrent episodes of AFib RVR, now appears to be sinus rhythm. Hemoglobin dropped to 6.[address] Montes is following the patient preparing for colonoscopy. She was transfused and the hemoglobin did improve back up to 8.6 following transfusion. She is not having further drop in hemoglobin. Clinically , she is much more alert and awake today, not having any complaints of any shortness of breath or chest pain. OBJECTIVE: Vital Signs: Her vital signs remained stable. Heart rate is about 70s and blood pressure is 130/90, pulse rate is 90, respirations 20, temperature normal. Neck: Supple. Lungs: Decreased breath sounds. No rales. Heart: S1 and S2 regular rhythm. Abdomen: Thin and soft. Extremities: Mild edema. LABORATORY DATA: Lab data showed hemoglobin stable at 8.6. The electrolytes are also stable. The potassium is slightly on the lower side. Sodium is 148, potassium 3.2. The rest of the labs are normal. IMPRESSION: 1. Paroxysmal atrial fibrillation now maintaining sinus rhythm. 2. Gastrointestinal bleeding, undergoing workup, scheduled for colonoscopy. Did require transfusion. 3. Anemia secondary to gastrointestinal bleeding. 4. Severe dementia. RECOMMENDATIONS: Continue the antiarrhythmic drug therapy, amiodarone for now and 200 mg by G-tube twice daily and also midodrine to maintain her blood pressure since the blood pressure is soft. IV antibiotics being continued as well. DT: 09:00:30 TT: 09:11:00 Ref: [id number] - TID: [id number]
--- NOTE | 2025-03-29 11:55 | ESPR_ITS ---
<Statement entered by Juan Jose Piper MD - 04/01/25 14:18> I reviewed above note and agree with findings and plans. I have also personally examined the patient with medicine team and went over assessment and plan with medical team including recruiting intern and resident physician. <Statement entered by Kendell Thompson MD - 03/29/25 15:48> No acute overnight events. Seen and examined at bedside and she appears much more comfortable today than compared to previous days. She has already had her EGD done but still pending colonoscopy for today to further evaluation GIB. However, vital signs are stable, leukocytosis improving, and hemoglobin improving. ----- Note reviewed and agree with care plan as documented. Please refer to the note below for further details. Plan discussed with attending physician Dr. Veronique Thompson MD PGY-2 Internal Medicine Documentation for date of: 03/29/25 Subjective Subjective Interval history: Patient was seen and examined at bedside. No acute events took place overnight. Patient spoke for the first time today when the provider entered the room saying what . field support representative shows atrial fibrillation with heart rate 91. Interspersed run of PVCs. Rectal tube still in place and showing red-brown excretions. Patient was given second gallon of GoLytely through PEG tube. Pending colonoscopy today. spoke to the who is the primary decision-maker for the patient yesterday about goals of care and gave him a day clear picture of the patient's medical condition. He wanted the patient to stay as full code. Exam Vital Signs Temp Pulse Resp BP Pulse Ox O2 Del Method O2 Flow Rate 97.5 F 77 19 139/85 H 93 L Room Air 0 03/29/25 08:00 03/29/25 08:38 03/29/25 08:00 03/29/25 08:38 03/29/25 08:00 03/29/25 04:00 03/28/25 13:44 Narrative Exam General: Patient malnourished and disheveled. Not awake and not answering questions Skin: Intact, Warm, no rashes. HEENT: Normocephalic, Atraumatic. Moist mucous membranes. EJ access line. Respiratory: Breath sounds are equal bilaterally with equal chest expansion. Unable to get a complete exam. Cardiovascular:RRR, No murmurs. Distal pulses 2+ Abdomen: Abdomen soft, non-distended, without erythema, or lesions. Nomral bowel sounds. Palpation nontender in all four quadrants, patient retracted when palpating did not verbalize anypain. No organomagely. No guarding or rebound present. Musculoskeletal/Extremities: A large area of a hematoma about the posterior aspect of the forearm and extending up the arm possibly an infiltrate of the blood transfusion the patient received that is resorbing. No edema of BLE. Unable to check ROM. Objective Labs 03/29/25 05:43 03/29/25 05:43 Labs: Laboratory Results - last 24 hr 03/26/25 03/28/25 03/29/25 08:48 15:15 01:40 WBC RBC Hgb 8.6 L D Hct 26.3 L MCV MCH MCHC RDW Std Deviation Plt Count Neut % (Auto) Lymph % (Auto) Boyle % (Auto) Eos % (Auto) Baso % (Auto) Neut # (Auto) Lymph # (Auto) Boyle # (Auto) Eos # (Auto) Baso # (Auto) Immature Gran # (Auto) Absolute Nucleated RBC Immature Gran % Nucleated RBC % Sodium 148 H Potassium 3.2 L 4.3 D Chloride 116 H Carbon Dioxide 18.0 L Anion Gap 14 BUN 12 Creatinine 1.0 Estim Creat Clear Calc 27.1 L eGFR 56 L BUN/Creatinine Ratio 12 Glucose 122 H D Calculated Osmolality 294 Calcium 7.4 L Corrected Calcium 8.8 Phosphorus 4.1 Magnesium Total Bilirubin AST ALT Alkaline Phosphatase Total Protein Albumin 2.2 L Globulin Albumin/Globulin Ratio Crossmatch See Detail 03/29/25 05:43 WBC 10.7 D RBC 3.20 L Hgb 9.0 L Hct 26.7 L MCV 83 MCH 28.1 MCHC 33.7 RDW Std Deviation 45.4 Plt Count 491 H Neut % (Auto) 86 H Lymph % (Auto) 4 L Boyle % (Auto) 2 Eos % (Auto) 1 Baso % (Auto) 0 Neut # (Auto) 9.2 H Lymph # (Auto) 0.4 L Boyle # (Auto) 0.2 Eos # (Auto) 0.1 Baso # (Auto) 0.0 Immature Gran # (Auto) 0.69 H Absolute Nucleated RBC 0.02 H Immature Gran % 7 H Nucleated RBC % 0 Sodium 146 H Potassium 4.1 Chloride 112 H Carbon Dioxide 19.6 L Anion Gap 14 BUN 11 Creatinine 0.9 Estim Creat Clear Calc 35.4 L eGFR > 60 BUN/Creatinine Ratio 12 Glucose 68 L D Calculated Osmolality 287 Calcium 7.7 L Corrected Calcium 9.1 Phosphorus Magnesium 2.4 Total Bilirubin 0.3 AST 33 ALT 34 Alkaline Phosphatase 135 H Total Protein 4.2 L Albumin 2.3 L Globulin 1.9 L Albumin/Globulin Ratio 1.2 Crossmatch ABG Interpretation ABG results: 03/25/25 03/27/25 10:21 08:49 ABG pH 7.48 H 7.41 ABG pCO2 31 L 28 L ABG pO2 78 L 48 L* D ABG HCO3 23 18 L ABG O2 Saturation 97 84 L ABG Base Excess -1 -6 L Quality Measures Quality Measures sepsis Current suspected stage: ruled out Possible source: pulmonary Blood cultures ordered: completed in ED Antibiotic ordered: Yes Advance care planning discussed with:: other Assessment & Plan Assessment Current Active Medications: Generic Name Dose Route Start Last Admin Trade Name Freq PRN Reason Stop Dose Admin Acetaminophen 650 mg 03/25/25 10:04 Acetaminophen 325 Mg Tablet PO 04/24/25 10:03 Q6HR PRN Fever >99.9 Amiodarone HCl 200 mg 03/25/25 09:00 03/29/25 08:38 Amiodarone Hcl 200 Mg Tablet GT 04/24/25 08:59 200 mg BID LORNE Administration Doxycycline Hyclate 100 mg 03/25/25 10:15 03/29/25 08:38 Doxycycline 100 Mg Tablet GT 04/01/25 10:14 100 mg BID LORNE Administration Guaifenesin/Dextromethorphan 1 each 03/25/25 08:10 Guaifenesin/Dm Tablet PO 04/24/25 08:09 BID PRN COUGH Piperacillin/Tazobactam/Dextrose 3.375 gm in 50 mls @ 12.5 mls/hr 03/26/25 21:00 03/29/25 08:44 Zosyn IV 04/02/25 20:59 12.5 mls/hr Q12HR LORNE Administration Dextrose 500 mls @ 125 mls/hr 03/29/25 10:37 D5w IV 04/28/25 10:36 .Q4H LORNE Midodrine 10 mg 03/29/25 10:32 Midodrine 5 Mg Tablet PO 04/26/25 08:14 TID PRN SBP <95 Multivitamins 1 tab 03/25/25 09:00 03/29/25 08:47 Multivitamins Tablet GT 04/24/25 08:59 Not Given QDAY [facility] Ondansetron HCl 4 mg 03/24/25 14:50 Ondansetron Inj 2 Mg/Ml Inj 2 Ml IVP 04/23/25 14:49 Q6H PRN NAUSEA OR VOMITING Protocol Pantoprazole Sodium 40 mg 03/26/25 21:00 03/29/25 08:43 Pantoprazole Inj 40 Mg Vial IVP 04/25/25 20:59 40 mg BID LORNE Administration Plan 85 year old female with history of dementia, paroxysmal atrial fibrillation, hypertension, diabetes, hyperllipidemia, ulcerative colitis, prior colon cancer, s/p PEG tube presented from [facility] on admission day 2 for sepsis secondary to Right lower lobe pneumonia, acute hypoxic respiratory failure, and anemia secondary to GI bleed. #Acute anemia secondary to GI bleed #s/p PEG tube PEG tube placed 02/[address] Montes. Coleman-Blatchford bleeding score 15: patient at high risk for GI bleed [id number] score: 2: 5.3% risk of in-hospital mortality from upper GI bleed Hgb 7.7 after 1u pRBC for Hgb 6.2; gave a second unit on 03/28, and Hgb luci to 8.6 from 6.6. EGD 03/26: Esophagitis was found in the lower third of the esophagus. Diffuse mild inflammation characterized by erythema was found in the gastric antrum. The examined duodenum was normal. Hgb 8.6, 9.0 (03/29) Plan: -GI Dr Montes consulted, pending colonoscopy -Serial CBC -Transfuse if Hgb <7g -IV Protonix 40mg bid #LU, likely prerenal - Improving #Hypernatremia, resolved BUN 57, 43, 28, 30, 12 (03/28), Cr 1.0 (base 1.1) BUN/Cr ratio of 36. Dry mucosa on physical exam. Na: 153, 150,... 139 (03/26) Pt?s creatinine is stable and Na level improved. *continuous dextrose infusion can bring about hyponatremia, and should be watched out for. Plan: - Nephrology consulted, appreciate recommendations - Water flushes PEG tube, 150 ml/h and continue to monitor Na. - D5W 125mL/h maintanence fluid and euglycemia - Monitor renal function and urine output. - Renal dose med, avoid nephrotoxin. #Acute hypoxemic respiratory failure, resolved #Sepsis secondary to right lower lobe pneumonia, resolved #CAP vs Aspiration pneumonia, resolved Repeat CXR showed diffuse right lung pneumonia with a lower lobe focus WBC 31, 28, 26.7, 16.8, 10.7 (03/29) SIRS criteria: T 96.9 (>100.9 or <96.8F), RR 18 (>20/min), HR 74 (>90/min), WBC 10.7 (>12 or <4K or Bands >10%). qSOFA 1 Blood culture was negative 2/ after 48H. U ctx was also negative. Nasal swab negative for MRSA - Started doxycycline GT 100mg bid and Zosyn IV 3.375g twice daily (dose adjustment according to creatinine clearance) - Placed on 2L via - Monitor CBC daily; trend WBC. - F/U blood ctx, urine ctx - Monitor vital signs closely. - Maintain MAP > 65 mmHg. - Midodrine PO 10mg TID for SBP <95. #Hypokalemia K+ 3.2, gave 60mEq of KCl with post-infusion K+ check. K+ 4.3 (03/29) #Dementia status post PEG tube #Encephalopathy Progressive confusion and weakness over the past year. Plan: - Resume donepezil 10mg PO QD once mentation imrpoves. Unknown if pt taking Donepezil, Memantine, or Fluoxetine at home. #hx of Paroxysmal atrial flutter and fibrillation. EKG (03/24) showed sinus tachycardia, T wave abnormality consistent with previous EKG. Troponin I .041 CHADS-VASC score estimated at 4. TTE (02/28/2025): LVEF 55%.? Normal LV, RV size and function. Mild-moderate MR with anterior mitral leaflet thickening. Aortic valve sclerosis. Mild TR, Trace AR Patient has a CHADSVASC of 4, but due to dementia, failure to thrive, generalized weakness and falls, the risk of anticoagulation outweighs the benefits. Plan: - cardiology consulted, appreciate recs - Keep K>4, Mg>2 - monitor telemetry - Treat underlying sepsis - Continue Amiodarone 200 mg PEG tube BID - midodrine PO 10mg PRN SBP <95 - pending repeat EKG - Continuous telemetry monitoring. #Failure to thrive BMI 14.8 Previously, had failed swallow screen. #History of glaucoma #Chronic pelvic pain syndrome -[place] 10-325 PRN Health Maintenance: Code Status: Full DVT Prophylaxis: SCDs GI Prophylaxis: Protonix Diet: NPO pending EGD Renteria: None Lines: PEG tube Supplemental O2: None Disposition: Med tele, pending EGD, discharge to
[2025-03-29] MEDS: DEXTROSE 50%-WATER INJ 50 ML SYRINGE IVP (17:01)
[2025-03-29] MEDS: DEXTROSE 5%-WATER 500 ML 125 ML IV (17:07)
--- NOTE | 2025-03-29 18:21 | ESPR_ITS ---
<Statement entered by Mehul Sal MD - 04/10/25 14:14> I personally examined evaluated the patient in telemetry with Dr. Dillard PGY2 patient is clinically doing well awaiting for transfer to [facility] facility cardiac prieto stable A-fib is back to sinus rhythm intermittent A-fib episodes are improving as well no significant tachyarrhythmias. Continue to monitor the patient closely and recommend continue present medication when she goes to [facility] facility Documentation for date of: 03/29/25 Subjective Subjective Interval history: Patient seen and examined at the bedside. More interactive today compared to previous examinations. Vitals and labs reviewed. Telemetry reviewed currently in sinus rhythm, some episodes of tachycardia overnight mostly artifacts seen on telemetry. EGD was done, patient pending colonoscopy at this time for evaluation GI bleeding. Will continue to follow at this time. Exam Vital Signs Temp Pulse Resp BP Pulse Ox O2 Del Method O2 Flow Rate 97.2 F 59 L 16 118/48 L 93 L Room Air 0 03/29/25 16:00 03/29/25 16:00 03/29/25 16:00 03/29/25 16:00 03/29/25 16:00 03/29/25 12:00 03/28/25 13:44 Narrative Exam GENERAL: NAD, mumbles when spoken to, thin, frail HEENT: Dry mucosa. Eyes open, symmetrical, & clear, only opens after stimulation CARDIO: Heart RRR, no obvious murmurs PULM: No noted coughing/dyspnea CTA B/L, no R/W/R GI: Abdomen soft, nondistended, no pain on palpation. PEG tube in place SKIN/MSK/EXT: Left upper extremity hematoma purplish, no pain on palpation. Pedal pulses present B/L Objective Labs 03/29/25 05:43 03/29/25 05:43 Labs: Laboratory Results - last 24 hr 03/26/25 03/29/25 03/29/25 08:48 01:40 05:43 WBC 10.7 D RBC 3.20 L Hgb 9.0 L Hct 26.7 L MCV 83 MCH 28.1 MCHC 33.7 RDW Std Deviation 45.4 Plt Count 491 H Neut % (Auto) 86 H Lymph % (Auto) 4 L Shannon % (Auto) 2 Eos % (Auto) 1 Baso % (Auto) 0 Neut # (Auto) 9.2 H Lymph # (Auto) 0.4 L Shannon # (Auto) 0.2 Eos # (Auto) 0.1 Baso # (Auto) 0.0 Immature Gran # (Auto) 0.69 H Absolute Nucleated RBC 0.02 H Immature Gran % 7 H Nucleated RBC % 0 Sodium 146 H Potassium 4.3 D 4.1 Chloride 112 H Carbon Dioxide 19.6 L Anion Gap 14 BUN 11 Creatinine 0.9 Estim Creat Clear Calc 35.4 L eGFR > 60 BUN/Creatinine Ratio 12 Glucose 68 L D Calculated Osmolality 287 Calcium 7.7 L Corrected Calcium 9.1 Magnesium 2.4 Total Bilirubin 0.3 AST 33 ALT 34 Alkaline Phosphatase 135 H Total Protein 4.2 L Albumin 2.3 L Globulin 1.9 L Albumin/Globulin Ratio 1.2 Crossmatch See Detail ABG Interpretation ABG results: 03/25/25 03/27/25 10:21 08:49 ABG pH 7.48 H 7.41 ABG pCO2 31 L 28 L ABG pO2 78 L 48 L* D ABG HCO3 23 18 L ABG O2 Saturation 97 84 L ABG Base Excess -1 -6 L Quality Measures Quality Measures sepsis Current suspected stage: ruled out Possible source: pulmonary Blood cultures ordered: completed in ED Antibiotic ordered: Yes Advance care planning discussed with:: patient Assessment & Plan Assessment Current Active Medications: Generic Name Dose Route Start Last Admin Trade Name Freq PRN Reason Stop Dose Admin Acetaminophen 650 mg 03/25/25 10:04 Acetaminophen 325 Mg Tablet PO 04/24/25 10:03 Q6HR PRN Fever >99.9 Amiodarone HCl 200 mg 03/25/25 09:00 03/29/25 08:38 Amiodarone Hcl 200 Mg Tablet GT 04/24/25 08:59 200 mg BID LORNE Administration Doxycycline Hyclate 100 mg 03/25/25 10:15 03/29/25 08:38 Doxycycline 100 Mg Tablet GT 04/01/25 10:14 100 mg BID LORNE Administration Guaifenesin/Dextromethorphan 1 each 03/25/25 08:10 Guaifenesin/Dm Tablet PO 04/24/25 08:09 BID PRN COUGH Piperacillin/Tazobactam/Dextrose 3.375 gm in 50 mls @ 12.5 mls/hr 03/26/25 21:00 03/29/25 08:44 Zosyn IV 04/02/25 20:59 12.5 mls/hr Q12HR LORNE Administration Dextrose 500 mls @ 125 mls/hr 03/29/25 10:37 03/29/25 17:07 D5w IV 04/28/25 10:36 125 mls/hr .Q4H LORNE Administration Midodrine 10 mg 03/29/25 10:32 Midodrine 5 Mg Tablet PO 04/26/25 08:14 TID PRN SBP <95 Multivitamins 1 tab 03/25/25 09:00 03/29/25 08:47 Multivitamins Tablet GT 04/24/25 08:59 Not Given QDAY LORNE Ondansetron HCl 4 mg 03/24/25 14:50 Ondansetron Inj 2 Mg/Ml Inj 2 Ml IVP 04/23/25 14:49 Q6H PRN NAUSEA OR VOMITING Protocol Pantoprazole Sodium 40 mg 03/26/25 21:00 03/29/25 08:43 Pantoprazole Inj 40 Mg Vial IVP 04/25/25 20:59 40 mg BID LORNE Administration Plan 85-year-old female with a history of very advanved dementia, hypertension, colon cancer, and a-fib on amiodarone, and PEG tube for long-term feeding support who presents from [facility] for evaluation of coffee-ground emesis. Admitted for sepsis secondary to pneumonia. Cardiology consulted for management of AFib with RVR. #Paroxysmal Atrial Fibrillation Patient with recent dx of Afib from previous hospitalization in february, was well controlled with amiodarone 200mg bid EKG from 03/25 shows sinus rhythm but has runs of Afib with RVR CHADS-VASC score estimated at 4, her risk of stroke is only 3%, but risk of bleeding and falls is very high and not recommend anticoagulation at this point as the risk/benefit does not favor Echo from 02/28/2025: Normal left ventricular size and function. Approximate ejection fraction is 55%. Right ventricle is normal in size and function. Mild- moderate MR with anterior mitral leaflet thickening Aortic valve sclerosis, Mild TR, Trace OK. Pending colonoscopy for evaluation of GI bleed. - Continue Amiodarone 200mg GT BID - Keep K>4, Mg>2 - monitor telemetry #Acute hypoxic respiratory failure #Sepsis secondary to right lower lobe pneumonia #UTI, ruled out #Upper GI bleed #s/p PEG tube #LU, likely prerenal #Hypernatremia #Dementia #Failure to thrive #History of glaucoma #Chronic pelvic pain syndrome Case discussed with my attending Dr. Doron Dillard MD PGY-2 Disclaimer: Despite multiple revisions, due to the dictation software being used, the document bellow may not be free of grammatical errors including phonetic/typographic errors. However, this does not deter from our commitment to providing health care in the patient's best interest in mind.
[2025-03-29] MEDS: NA SU/NAHCO3/KC/PEG (Golytely) 4,000 ML BTL 4000 ML PO (20:03)
--- NOTE | 2025-03-29 21:07 | ESPR_ITS ---
Documentation for date of: 03/29/25 Subjective Subjective Interval history: Patient was scheduled for a colonoscopy she is not clear Additional GoLytely started scheduled for Colonoscopy tomorrow Exam Vital Signs Temp Pulse Resp BP Pulse Ox O2 Del Method O2 Flow Rate 98.3 F 79 18 154/76 H 96 Room Air 0 03/29/25 20:15 03/29/25 20:23 03/29/25 20:15 03/29/25 20:23 03/29/25 20:15 03/29/25 20:15 03/28/25 13:44 Objective Labs 03/29/25 05:43 03/29/25 05:43 Labs: Laboratory Results - last 24 hr 03/26/25 03/29/25 03/29/25 08:48 01:40 05:43 WBC 10.7 D RBC 3.20 L Hgb 9.0 L Hct 26.7 L MCV 83 MCH 28.1 MCHC 33.7 RDW Std Deviation 45.4 Plt Count 491 H Neut % (Auto) 86 H Lymph % (Auto) 4 L Barber % (Auto) 2 Eos % (Auto) 1 Baso % (Auto) 0 Neut # (Auto) 9.2 H Lymph # (Auto) 0.4 L Barber # (Auto) 0.2 Eos # (Auto) 0.1 Baso # (Auto) 0.0 Immature Gran # (Auto) 0.69 H Absolute Nucleated RBC 0.02 H Immature Gran % 7 H Nucleated RBC % 0 Sodium 146 H Potassium 4.3 D 4.1 Chloride 112 H Carbon Dioxide 19.6 L Anion Gap 14 BUN 11 Creatinine 0.9 Estim Creat Clear Calc 35.4 L eGFR > 60 BUN/Creatinine Ratio 12 Glucose 68 L D Calculated Osmolality 287 Calcium 7.7 L Corrected Calcium 9.1 Magnesium 2.4 Total Bilirubin 0.3 AST 33 ALT 34 Alkaline Phosphatase 135 H Total Protein 4.2 L Albumin 2.3 L Globulin 1.9 L Albumin/Globulin Ratio 1.2 Crossmatch See Detail Impressions Impression: Anemia blood loss colonoscopy scheduled tentatively for tomorrow provided patient is clear patient GoLytely being able ABG Interpretation ABG results: 03/25/25 03/27/25 10:21 08:49 ABG pH 7.48 H 7.41 ABG pCO2 31 L 28 L ABG pO2 78 L 48 L* D ABG HCO3 23 18 L ABG O2 Saturation 97 84 L ABG Base Excess -1 -6 L Assessment & Plan A&P Narrative # Coffee-ground hematemesis could be the bleeding from the gastrostomy site with ulceration, possible peptic ulcer disease, possible Annie-Gardner tear # Postoperative anemia plan Fiberoptic esophagogastroduodenoscopy with possible therapeutic intervention possible biopsy under intravenous moderate sedation Consent will be obtained from the conservator and the patient has been scheduled tentatively for tomorrow Serial CBC Transfuse if the hemoglobin drops from 7 g IV Protonix Will follow the patient Other medical problems include Essential hypertension Paroxysmal atrial fibrillation Diabetes mellitus type 2 Questionable history of from the record review UC/colon carcinoma Thank you very much for the opportunity to participate in the care of this patient Time Spent With Patient Time: Total time spent is greater than 50% in coordination of care (as documented) at patient's floor/unit and/or counseling patient:
[2025-03-29] MEDS: DEXTROSE 5%-WATER 500 ML 80 ML IV (22:20)
[2025-03-30] VITALS (17 sets, daily range): BP systolic 97–149; BP diastolic 47–74; PULSE 53–89; RESP 16–20; TEMP 35.9–36.4; O2SAT 93–100; BMI 18.1
[2025-03-30] MEDS: DEXTROSE 5%-WATER 500 ML 80 ML IV (04:47)
[2025-03-30 06:02] LABS: Basophils # (Auto) 0.0 Thou/mm3 (0.0-0.2); Basophils % (Auto) 0 % (0-2.5); Eosinophils # (Auto) 0.2 Thou/mm3 (0.0-0.5); Eosinophils % (Auto) 2 % (0-10); Hematocrit 28.3 % (36.0-46.0); Hemoglobin 9.3 g/dL (12.0-16.0); Immature Granulocytes Auto 0.55 Thou/mm3 (0.00-0.00); Lymphocytes # (Auto) 0.5 Thou/mm3 (1.0-4.8); Lymphocytes % (Auto) 6 % (10-50); Mean Corpuscular HGB Conc 32.9 g/dl (31.0-37.0); Mean Corpuscular Hemoglobin 27.8 pg (25.0-35.0); Mean Corpuscular Volume 85 fL (80-100); Monocytes # (Auto) 0.3 Thou/mm3 (0.0-0.8); Monocytes % (Auto) 3 % (0-12); Neutrophils # (Auto) 7.5 Thou/mm3 (1.8-7.7); Neutrophils % (Auto) 83 % (37-80); Nucleated Red Blood Cell # 0.00 Thou/mm3 (0.00-0.00); Nucleated Red Blood Cell % 0 /100 WBC (0); Platelet Count 449 Thou/mm3 (140-440); RDW Standard Deviation 46.3 fL (36.4-46.3); Red Blood Count 3.35 Miln/mm3 (4.00-5.20); White Blood Count 8.9 Thou/mm3 (3.6-11.0)
[2025-03-30 06:20] LABS: Alanine Aminotransferase 29 U/L (10-49); Albumin, Serum 2.2 gm/dL (3.4-4.8); Albumin/Globulin Ratio 1.1 (1.2-2.2); Alkaline Phosphatase 128 U/L (46-116); Anion Gap 11 (7-16); Aspartate Amino Transferase 21 U/L (0-34); BUN/Creatinine Ratio 9 Ratio (12-20); Bilirubin,Total 0.4 mg/dL (0.3-1.2); Blood Urea Nitrogen 7 mg/dL (9-23); Calcium 7.7 mg/dL (8.3-10.6); Calcium (Corrected) 9.1 mg/dL (8.5-10.1); Carbon Dioxide 22.7 mMol/L (20.0-31.0); Chloride 110 mMol/L (98-107); Creatinine (Component) 0.8 mg/dL (0.6-1.3); Estimated Creatinine Clearance 39.8 mL/min (>60); Globulin 2.0 gm/dL (2.3-3.5); Glucose 85 mg/dL (74-106); Magnesium 1.8 mg/dL (1.6-2.6); Osmolality,Calculated 283 (275-295); Potassium 3.6 mMol/L (3.4-5.1); Sodium 144 mMol/L (136-145); Total Protein 4.2 gm/dL (5.7-8.2); eGFR > 60 See Note
[2025-03-30] MEDS: PIPER/TAZO 3.375 GM PREMIX 3.375 GM/50 ML BAG IV ×2 (08:07→21:16)
[2025-03-30] MEDS: AMIODARONE HCL 200 MG TABLET GT ×2 (08:08→21:16)
[2025-03-30] MEDS: DOXYCYCLINE 100 MG TABLET GT (08:09)
[2025-03-30] MEDS: MULTIVITAMINS TABLET 1 TAB GT (08:09)
[2025-03-30] MEDS: Magnesium Sulfate 2 GM Ivpb 2 GM/50 ML BAG IV (09:16)
[2025-03-30] MEDS: POTASSIUM CHL 20 mEq IVPB 20 MEQ/100 ML BAG 50 MEQ IV (09:17)
--- NOTE | 2025-03-30 11:45 | PC.SS ---
follow up note: Patient pending colonoscopy. SS received a call from [facility] for medical update. Patient will return to facility once stable.
[2025-03-30] MEDS: DEXTROSE 5%-WATER 500 ML 75 ML IV ×2 (14:30→21:15)
--- NOTE | 2025-03-30 14:32 | ESPR_ITS ---
<Statement entered by Juan Jose Piper MD - 04/01/25 14:19> I reviewed above note and agree with findings and plans. I have also personally examined the patient with medicine team and went over assessment and plan with medical team including international accountant and resident physician. <Statement entered by Kendell Thompson MD - 03/30/25 14:40> No acute overnight events. Seen and examined at bedside. Per nursing staff, she is clear after prepping with GoLytely and anticipate colonoscopy today to further evaluate source of GI bleed. Otherwise, vital signs stable, hemoglobin stable, leukocytosis resolved, hyponatremia resolved. Anticipate discharge in next 24 to 48 hours, pending colonoscopy results and GI recommendations. ----- Note reviewed and agree with care plan as documented. Please refer to the note below for further details. Plan discussed with attending physician Dr. Veronique Thompson MD PGY-2 Internal Medicine Documentation for date of: 03/30/25 Subjective Subjective Interval history: Patient was seen and examined at bedside. No acute events took place overnight. When provider entered patient room and called her name, patient opened her eyes up and gazed at the provider. case monitor shows atrial fibrillation with heart rate 91. Interspersed run of PVCs. Rectal tube still in place and clear per nurse. Patient was given third gallon of GoLytely through PEG tube. Pending colonoscopy today. Wound care nurse in the room was taking care of the hematoma developed posterior left forearm. spoke to the who is the primary decision-maker for the patient yesterday about goals of care and gave him a day clear picture of the patient's medical condition. He wanted the patient to stay as full code. Exam Vital Signs Temp Pulse Resp BP Pulse Ox O2 Del Method O2 Flow Rate 96.7 F L 62 18 122/58 L 94 L Room Air 0 03/30/25 11:50 03/30/25 11:50 03/30/25 11:50 03/30/25 11:50 03/30/25 11:50 03/30/25 11:50 03/28/25 13:44 Narrative Exam General: Patient malnourished and disheveled. Not awake and not answering questions Skin: Intact, Warm, no rashes. HEENT: Normocephalic, Atraumatic. Moist mucous membrane. Respiratory: Breath sounds are equal bilaterally with equal chest expansion. Unable to get a complete exam. Cardiovascular:RRR, No murmurs. Distal pulses 2+ Abdomen: Abdomen soft, non-distended, without erythema, or lesions. Nomral bowel sounds. Palpation nontender in all four quadrants, patient retracted when palpating did not verbalize anypain. No organomagely. No guarding or rebound present. Musculoskeletal/Extremities: A large area of a hematoma about the posterior aspect of the forearm and extending up the arm possibly an infiltrate of the blood transfusion the patient received that is resorbing. No edema of BLE. Unable to check ROM. femoral line in place. Objective Labs 03/31/25 05:15 03/31/25 04:30 Labs: Laboratory Results - last 24 hr 03/30/25 05:43 WBC 8.9 RBC 3.35 L Hgb 9.3 L Hct 28.3 L MCV 85 MCH 27.8 MCHC 32.9 RDW Std Deviation 46.3 Plt Count 449 H D Neut % (Auto) 83 H Lymph % (Auto) 6 L [place] % (Auto) 3 Eos % (Auto) 2 Baso % (Auto) 0 Neut # (Auto) 7.5 Lymph # (Auto) 0.5 L [place] # (Auto) 0.3 Eos # (Auto) 0.2 Baso # (Auto) 0.0 Immature Gran # (Auto) 0.55 H Absolute Nucleated RBC 0.00 Immature Gran % 6 H Nucleated RBC % 0 Sodium 144 Potassium 3.6 D Chloride 110 H Carbon Dioxide 22.7 Anion Gap 11 BUN 7 L Creatinine 0.8 Estim Creat Clear Calc 39.8 L eGFR > 60 BUN/Creatinine Ratio 9 L Glucose 85 Calculated Osmolality 283 Calcium 7.7 L Corrected Calcium 9.1 Magnesium 1.8 Total Bilirubin 0.4 AST 21 ALT 29 Alkaline Phosphatase 128 H Total Protein 4.2 L Albumin 2.2 L Globulin 2.0 L Albumin/Globulin Ratio 1.1 L ABG Interpretation ABG results: 03/25/25 03/27/25 10:21 08:49 ABG pH 7.48 H 7.41 ABG pCO2 31 L 28 L ABG pO2 78 L 48 L* D ABG HCO3 23 18 L ABG O2 Saturation 97 84 L ABG Base Excess -1 -6 L Quality Measures Quality Measures sepsis Current suspected stage: ruled out Possible source: pulmonary Blood cultures ordered: completed in ED Antibiotic ordered: Yes Advance care planning discussed with:: other Assessment & Plan Assessment Current Active Medications: Generic Name Dose Route Start Last Admin Trade Name Freq PRN Reason Stop Dose Admin Acetaminophen 650 mg 03/25/25 10:04 Acetaminophen 325 Mg Tablet PO 04/24/25 10:03 Q6HR PRN Fever >99.9 Amiodarone HCl 200 mg 03/25/25 09:00 03/30/25 08:08 Amiodarone Hcl 200 Mg Tablet GT 04/24/25 08:59 200 mg BID LORNE Administration Guaifenesin/Dextromethorphan 1 each 03/25/25 08:10 Guaifenesin/Dm Tablet PO 04/24/25 08:09 BID PRN COUGH Piperacillin/Tazobactam/Dextrose 3.375 gm in 50 mls @ 12.5 mls/hr 03/26/25 21:00 03/30/25 08:07 Zosyn IV 04/02/25 20:59 12.5 mls/hr Q12HR LORNE Administration Dextrose 500 mls @ 75 mls/hr 03/30/25 10:08 03/30/25 14:30 D5w IV 04/29/25 10:07 75 mls/hr .Q6H40M LORNE Administration Midodrine 10 mg 03/29/25 10:32 Midodrine 5 Mg Tablet PO 04/26/25 08:14 TID PRN SBP <95 Multivitamins 1 tab 03/25/25 09:00 03/30/25 08:09 Multivitamins Tablet GT 04/24/25 08:59 1 tab QDAY LORNE Administration Ondansetron HCl 4 mg 03/24/25 14:50 Ondansetron Inj 2 Mg/Ml Inj 2 Ml IVP 04/23/25 14:49 Q6H PRN NAUSEA OR VOMITING Protocol Pantoprazole Sodium 40 mg 03/26/25 21:00 03/30/25 08:08 Pantoprazole Inj 40 Mg Vial IVP 04/25/25 20:59 40 mg BID LORNE Administration Plan 85 year old female with history of dementia, paroxysmal atrial fibrillation, hypertension, diabetes, hyperllipidemia, ulcerative colitis, prior colon cancer, s/p PEG tube presented from [facility] on admission day 2 for sepsis secondary to Right lower lobe pneumonia, acute hypoxic respiratory failure, and anemia secondary to GI bleed. #Acute anemia secondary to GI bleed #hx of PEG tube PEG tube placed 02/[address] Montes. Maria Esther-Blatchford bleeding score 15: patient at high risk for GI bleed [id number] score: 2: 5.3% risk of in-hospital mortality from upper GI bleed Hgb 7.7 after 1u pRBC for Hgb 6.2; gave a second unit on 03/28, and Hgb luci to 8.6 from 6.6. EGD 03/26: Esophagitis was found in the lower third of the esophagus. Diffuse mild inflammation characterized by erythema was found in the gastric antrum. The examined duodenum was normal. Hgb 8.6, 9.0, 9.3 (03/30) Plan: -GI Dr Montes consulted, pending colonoscopy -Serial CBC -Transfuse if Hgb <7g -IV Protonix 40mg bid #LU, likely prerenal - Improving #Hypernatremia, resolved BUN 57, 43, 28, 30, 12, 7 (03/30), Cr 0.8 (base 1.1) BUN/Cr ratio of 36. Dry mucosa on physical exam. Na: 153, 150,... 139 (03/26) Pt?s creatinine is stable and Na level improved. *continuous dextrose infusion can bring about hyponatremia, and should be watched out for. Plan: - Nephrology consulted, appreciate recommendations - Water flushes PEG tube, 150 ml/h and continue to monitor Na. - D5W 75mL/h maintanence fluid and euglycemia - Monitor renal function and urine output. - Renal dose med, avoid nephrotoxin. #Acute hypoxemic respiratory failure, resolved #Sepsis secondary to right lower lobe pneumonia, resolved #CAP vs Aspiration pneumonia, resolved Repeat CXR showed diffuse right lung pneumonia with a lower lobe focus WBC 31, 28, 26.7, 16.8, 10.7, 8.9 (03/30) SIRS criteria: T 96.9 (>100.9 or <96.8F), RR 18 (>20/min), HR 74 (>90/min), WBC 10.7 (>12 or <4K or Bands >10%). qSOFA 1 Blood culture was negative 2/2 after 48H. U ctx was also negative. Nasal swab negative for MRSA - Zosyn IV 3.375g twice daily (dose adjustment according to creatinine clearance) - Stopped doxycycline GT 100mg bid - Placed on 2L via NC - Monitor CBC daily; trend WBC. - F/U blood ctx, urine ctx - Monitor vital signs closely. - Maintain MAP > 65 mmHg. - Midodrine PO 10mg TID for SBP <95. #Hypokalemia K+ 3.2, gave 60mEq of KCl with post-infusion K+ check. K+ 4.3 (03/29) #Dementia status post PEG tube #Encephalopathy Progressive confusion and weakness over the past year. Plan: - Resume donepezil 10mg PO QD once mentation imrpoves. Unknown if pt taking Donepezil, Memantine, or Fluoxetine at home. #hx of Paroxysmal atrial flutter and fibrillation. EKG (03/24) showed sinus tachycardia, T wave abnormality consistent with previous EKG. Troponin I .041 CHADS-VASC score estimated at 4. TTE (02/28/2025): LVEF 55%.? Normal LV, RV size and function. Mild-moderate MR with anterior mitral leaflet thickening. Aortic valve sclerosis. Mild TR, Trace ME Patient has a CHADSVASC of 4, but due to dementia, failure to thrive, generalized weakness and falls, the risk of anticoagulation outweighs the benefits. Plan: - cardiology consulted, appreciate recs - Keep K>4, Mg>2 - monitor telemetry - Treat underlying sepsis - Continue Amiodarone 200 mg GT BID - midodrine PO 10mg PRN SBP <95 - pending repeat EKG - Continuous telemetry monitoring. #Failure to thrive BMI 14.8 Previously, had failed swallow screen. #History of glaucoma #Chronic pelvic pain syndrome -[place] 10-325 PRN Health Maintenance: Code Status: Full DVT Prophylaxis: SCDs GI Prophylaxis: Protonix Renteria: None Lines: PEG tube Supplemental O2: 2L via NC Disposition: Med tele, pending colonoscopy, discharge to
[2025-03-30] MEDS: DEXTROSE 50%-WATER INJ 50 ML SYRINGE IVP (18:06)
--- NOTE | 2025-03-30 19:00 | PC.NURSE ---
pt taken for colonoscopy by endo staff.
--- NOTE | 2025-03-30 20:10 | SUR.PHASEI ---
2010: Pt. wakes to name then drifts back to sleep, vitals stable, breathing unlabored, no signs of distress, no active bleed noted, report received from Tasia TRIVEDI and Rayne FUNEZ.
--- NOTE | 2025-03-30 20:40 | SUR.PHASEI ---
2039: Pt. AAOx4, vitals stable, breathing unlabored, no complaint of pain or nausea, kerlix dressing wrapped on left upper arm, pt. had multiple skin tears before arrival to surgical department, some skin tears had active bleed. Floor nurse made aware. Renteria catheter intact, Gave report to floor nurse prior to transfer to room 266.
--- NOTE | 2025-03-30 20:50 | PC.NURSE ---
pt back from endo, received report from Suki FUNEZ.
[2025-03-31] VITALS: BP 134/60; PULSE 79; PULSE 82; RESP 20; TEMP 36.1; O2SAT 97
[2025-03-31] MEDS: DEXTROSE 5%-WATER 500 ML 75 ML IV ×3 (03:34→13:23)
[2025-03-31 04:00] VITALS: BP 117/50; PULSE 65; PULSE 76; RESP 19; TEMP 35.9; O2SAT 98
[2025-03-31 04:11] VITALS: BMI 16.1
[2025-03-31 06:00] LABS: Basophils # (Auto) 0.0 Thou/mm3 (0.0-0.2); Basophils % (Auto) 0 % (0-2.5); Eosinophils # (Auto) 0.1 Thou/mm3 (0.0-0.5); Eosinophils % (Auto) 2 % (0-10); Hematocrit 27.0 % (36.0-46.0); Hemoglobin 8.9 g/dL (12.0-16.0); Immature Granulocytes Auto 0.37 Thou/mm3 (0.00-0.00); Lymphocytes # (Auto) 0.4 Thou/mm3 (1.0-4.8); Lymphocytes % (Auto) 6 % (10-50); Mean Corpuscular HGB Conc 33.0 g/dl (31.0-37.0); Mean Corpuscular Hemoglobin 28.4 pg (25.0-35.0); Mean Corpuscular Volume 86 fL (80-100); Monocytes # (Auto) 0.2 Thou/mm3 (0.0-0.8); Monocytes % (Auto) 3 % (0-12); Neutrophils # (Auto) 5.8 Thou/mm3 (1.8-7.7); Neutrophils % (Auto) 84 % (37-80); Nucleated Red Blood Cell # 0.00 Thou/mm3 (0.00-0.00); Nucleated Red Blood Cell % 0 /100 WBC (0); Platelet Count 416 Thou/mm3 (140-440); RDW Standard Deviation 47.3 fL (36.4-46.3); Red Blood Count 3.13 Miln/mm3 (4.00-5.20); White Blood Count 6.9 Thou/mm3 (3.6-11.0)
[2025-03-31 06:45] LABS: Alanine Aminotransferase 30 U/L (10-49); Albumin, Serum 1.9 gm/dL (3.4-4.8); Albumin/Globulin Ratio 1.1 (1.2-2.2); Alkaline Phosphatase 122 U/L (46-116); Anion Gap 10 (7-16); Aspartate Amino Transferase 29 U/L (0-34); BUN/Creatinine Ratio 8 Ratio (12-20); Bilirubin,Total 0.4 mg/dL (0.3-1.2); Blood Urea Nitrogen 6 mg/dL (9-23); Calcium 7.2 mg/dL (8.3-10.6); Calcium (Corrected) 8.9 mg/dL (8.5-10.1); Carbon Dioxide 24.8 mMol/L (20.0-31.0); Chloride 110 mMol/L (98-107); Creatinine (Component) 0.8 mg/dL (0.6-1.3); Estimated Creatinine Clearance 35.3 mL/min (>60); Globulin 1.7 gm/dL (2.3-3.5); Glucose 96 mg/dL (74-106); Magnesium 2.1 mg/dL (1.6-2.6); Osmolality,Calculated 286 (275-295); Potassium 3.1 mMol/L (3.4-5.1); Sodium 145 mMol/L (136-145); Total Protein 3.6 gm/dL (5.7-8.2); eGFR > 60 See Note
[2025-03-31 08:00] VITALS: BP 116/90; PULSE 79; PULSE 85; RESP 19; TEMP 36.1; O2SAT 97
--- NOTE | 2025-03-31 08:37 | ESPR_ITS ---
<Statement entered by Mehul Sal MD - 04/10/25 14:15> I personally examined evaluated the patient with PGY 2 Dr. Dillard patient is doing quite well back in sinus rhythm recommend continue amiodarone at the time of discharge Documentation for date of: 03/30/25 Subjective Subjective Interval history: Vitals and Labs reviewed. Patient appears to be doing well maintaining sinus rhythm with rate around 60s no episodes of sustained tachycardia or afib in last 24 hours. Patient is pending colonoscopy today by GI specialist. Can continue to take amiodarone 200mg BID. Exam Vital Signs Temp Pulse Resp BP Pulse Ox O2 Del Method O2 Flow Rate 97.0 F 79 19 116/90 H 97 Room Air 2 03/31/25 08:00 03/31/25 08:00 03/31/25 08:00 03/31/25 08:00 03/31/25 08:00 03/31/25 08:00 03/30/25 21:00 Narrative Exam GENERAL: NAD, mumbles when spoken to, thin, frail HEENT: Dry mucosa. Eyes open, symmetrical, & clear, only opens after stimulation CARDIO: Heart RRR, no obvious murmurs PULM: No noted coughing/dyspnea CTA B/L, no R/W/R GI: Abdomen soft, nondistended, no pain on palpation. PEG tube in place SKIN/MSK/EXT: Left upper extremity hematoma purplish, no pain on palpation. Pedal pulses present B/L Objective Labs 03/31/25 05:15 03/31/25 04:30 Labs: Laboratory Results - last 24 hr 03/31/25 03/31/25 04:30 05:15 WBC 6.9 RBC 3.13 L Hgb 8.9 L Hct 27.0 L MCV 86 MCH 28.4 MCHC 33.0 RDW Std Deviation 47.3 H Plt Count 416 D Neut % (Auto) 84 H Lymph % (Auto) 6 L [place] % (Auto) 3 Eos % (Auto) 2 Baso % (Auto) 0 Neut # (Auto) 5.8 Lymph # (Auto) 0.4 L [place] # (Auto) 0.2 Eos # (Auto) 0.1 Baso # (Auto) 0.0 Immature Gran # (Auto) 0.37 H Absolute Nucleated RBC 0.00 Immature Gran % 5 H Nucleated RBC % 0 Sodium 145 Potassium 3.1 L D Chloride 110 H Carbon Dioxide 24.8 Anion Gap 10 BUN 6 L Creatinine 0.8 Estim Creat Clear Calc 35.3 L eGFR > 60 BUN/Creatinine Ratio 8 L Glucose 96 Calculated Osmolality 286 Calcium 7.2 L Corrected Calcium 8.9 Magnesium 2.1 Total Bilirubin 0.4 AST 29 ALT 30 Alkaline Phosphatase 122 H Total Protein 3.6 L Albumin 1.9 L Globulin 1.7 L Albumin/Globulin Ratio 1.1 L ABG Interpretation ABG results: 03/25/25 03/27/25 10:21 08:49 ABG pH 7.48 H 7.41 ABG pCO2 31 L 28 L ABG pO2 78 L 48 L* D ABG HCO3 23 18 L ABG O2 Saturation 97 84 L ABG Base Excess -1 -6 L Quality Measures Quality Measures sepsis Current suspected stage: ruled out Possible source: pulmonary Blood cultures ordered: completed in ED Antibiotic ordered: Yes Advance care planning discussed with:: patient Assessment & Plan Assessment Current Active Medications: Generic Name Dose Route Start Last Admin Trade Name Freq PRN Reason Stop Dose Admin Acetaminophen 650 mg 03/25/25 10:04 Acetaminophen 325 Mg Tablet PO 04/24/25 10:03 Q6HR PRN Fever >99.9 Amiodarone HCl 200 mg 03/25/25 09:00 03/30/25 21:16 Amiodarone Hcl 200 Mg Tablet GT 04/24/25 08:59 200 mg BID LORNE Administration Hydrocortisone 100 mg 03/31/25 09:00 Hydrocortisone Enema 100 Mg/60 Ml Btl [place] 04/30/25 08:59 DAILY LORNE Piperacillin/Tazobactam/Dextrose 3.375 gm in 50 mls @ 12.5 mls/hr 03/26/25 21:00 03/30/25 21:16 Zosyn IV 04/02/25 20:59 12.5 mls/hr Q12HR LORNE Administration Dextrose 500 mls @ 75 mls/hr 03/30/25 10:08 03/31/25 03:34 D5w IV 04/29/25 10:07 75 mls/hr .Q6H40M LORNE Administration Midodrine 5 mg 03/30/25 16:21 Midodrine 5 Mg Tablet PO 04/29/25 16:29 TID PRN SBP <95 Multivitamins 1 tab 03/25/25 09:00 09/09/25 08:09 Multivitamins Tablet GT 04/24/25 08:59 1 tab QDAY LORNE Administration Ondansetron HCl 4 mg 03/24/25 14:50 Ondansetron Inj 2 Mg/Ml Inj 2 Ml IVP 04/23/25 14:49 Q6H PRN NAUSEA OR VOMITING Protocol Pantoprazole Sodium 40 mg 03/26/25 21:00 03/30/25 21:15 Pantoprazole Inj 40 Mg Vial IVP 04/25/25 20:59 40 mg BID LORNE Administration Potassium Chloride 20 meq 03/31/25 09:00 Potassium Chloride 10% 20 Meq/15 Ml Udc GT 03/31/25 09:01 X1 ONE Plan 85-year-old female with a history of very advanved dementia, hypertension, colon cancer, and a-fib on amiodarone, and PEG tube for long-term feeding support who presents from [facility] for evaluation of coffee-ground emesis. Admitted for sepsis secondary to pneumonia. Cardiology consulted for management of AFib with RVR. #Paroxysmal Atrial Fibrillation Patient with recent dx of Afib from previous hospitalization in february, was well controlled with amiodarone 200mg bid EKG from 03/25 shows sinus rhythm but has runs of Afib with RVR CHADS-VASC score estimated at 4, her risk of stroke is only 3%, but risk of bleeding and falls is very high and not recommend anticoagulation at this point as the risk/benefit does not favor Echo from 02/28/2025: Normal left ventricular size and function. Approximate ejection fraction is 55%. Right ventricle is normal in size and function. Mild- moderate MR with anterior mitral leaflet thickening Aortic valve sclerosis, Mild TR, Trace [place]. Pending colonoscopy for evaluation of GI bleed. - Continue Amiodarone 200mg GT BID - Keep K>4, Mg>2 - monitor telemetry #Acute hypoxic respiratory failure #Sepsis secondary to right lower lobe pneumonia #UTI, ruled out #Upper GI bleed #s/p PEG tube #LU, likely prerenal #Hypernatremia #Dementia #Failure to thrive #History of glaucoma #Chronic pelvic pain syndrome Case discussed with my attending Dr. Doron Dillard MD PGY-2 Disclaimer: Despite multiple revisions, due to the dictation software being used, the document bellow may not be free of grammatical errors including phonetic/typographic errors. However, this does not deter from our commitment to providing health care in the patient's best interest in mind.
[2025-03-31 09:01] VITALS: BP 116/90; PULSE 79
[2025-03-31] MEDS: AMIODARONE HCL 200 MG TABLET GT (09:01)
[2025-03-31] MEDS: PIPER/TAZO 3.375 GM PREMIX 3.375 GM/50 ML BAG IV (09:01)
[2025-03-31] MEDS: MULTIVITAMINS TABLET 1 TAB GT (09:01)
[2025-03-31] MEDS: POTASSIUM CHLORIDE 10% 20 MEQ/15 ML UDC 40 MEQ GT (09:03)
[2025-03-31] MEDS: HYDROCORTISONE ENEMA 100 MG/60 ML BTL PR (10:09)
[2025-03-31] MEDS: POTASSIUM CHLORIDE 10% 20 MEQ/15 ML UDC GT (10:09)
--- NOTE | 2025-03-31 11:19 | PC.SS ---
Patient needs a bariatric walker for home. The diagnosis creates mobility limitation that significantly impairs ability to participate in the patients activities of daily living either in their entirety, or in a reasonable time frame. Also the patient is able to safely use the walker and the patient?s mobility is sufficiently resolved with the use of the walker and cane has been ruled out.
--- NOTE | 2025-03-31 11:59 | ESDS_ITS ---
<Statement entered by Juan Jose Piper MD - 04/12/25 09:06> I reviewed above note and agree with findings and plans. I have also personally examined the patient with medicine team and went over assessment and plan with medical team including agribusiness internship and resident physician. Planned Discharge Date 03/31/25 DS: Providers Provider Date of admission: 03/24/25 14:39 Primary care physician: Physician No Primary/Family Admitting Provider: Brent Martinez MD Attending Provider on Admission: Juan Jose Piper MD Consults: 03/24/25 14:54 Consult to Gastroenterology Routine Comment: Consulting Provider: Sarah Montes 03/25/25 01:10 Referral Wound Care Routine Comment: 03/25/25 08:12 PT [Referral Physical Therapy] Routine Comment: Physician Instructions: 03/25/25 08:14 Referral Speech Therapy Routine Comment: swallow eval 03/25/25 09:58 Consult to Nephrology Routine Comment: Na 153 Consulting Provider: Kiran Tolbert 03/25/25 16:31 Consult to Cardiology Routine Comment: Persistent Afib Consulting Provider: Mehul Sal 03/25/25 16:55 Referral Registered Dietitian Routine Comment: TF recs Attending Provider on DC: Kendell Thompson MD Discharging Provider: Kendell Thmopson MD DS: Diagnosis Problem List Completed Was Problem List Reviewed/Reconciled?: Yes Hospital Course Hospital Course Hospital course: Deyanira Thao is an 85-year-old female with a past medical history of dementia, proximal A-fib on amiodarone, hypertension, type 2 diabetes mellitus, hyperlipidemia, ulcerative colitis, history of colon cancer status post PEG tube placement who presented from [facility] for coffee-ground emesis. In ED, vitals significant for pulse of 118, respiratory rate of 28, temperature 101 ?F, saturating 90% on room air. She was initially started on ceftriaxone and azithromycin for pneumonia and GI consulted for evaluation of GI bleed. Hospital course was significant for difficulty obtaining IV access and eventually ICU place central line and patient was seen to have significant improvement afterwards. EGD showed esophagitis, gastritis but no source of GI bleed and underwent colonoscopy that showed a mucosal ulceration in the rectum with polyps that were resected. She was started on hydrocortisone enema per GI recommendations and will be discharged with such. Otherwise, on day of discharge vital signs stable, CBC showed resolved leukocytosis and stable hemoglobin, CHEM panel significant for electrolyte normalities that were corrected/resolved over time. Tube feedings restarted and central line removed and deemed stable for discharge. Diagnoses during admission: #Acute anemia secondary to GI bleed #History of PEG tube #Prenal UL, improving #Hypernatremia, resolved #Acute hypoxemic respiratory failure, resolved #Sepsis secondary to right lower lobe pneumonia, resolved #CAP vs Aspiration pneumonia, resolved #Hypokalemia #Dementia status post PEG tube #Encephalopathy #Paroxysmal atrial fibrillation #Failure to thrive #History of glaucoma #Chronic pelvic pain syndrome Discharge instructions: ? Continue taking all other home medications as prescribed ? Started on hydrocortisone enema nightly for 30 days ? Started midodrine 5 mg as needed up to three times per day ? Follow-up with PCP within 1-2 weeks of discharge ? If you do not have a PCP, you can follow-up at the [facility] (you can call [phone] to make an appointment) ? Return to ED if symptoms worsen or recur ----- Note reviewed and agree with care plan as documented. Please refer to the note below for further details. Plan discussed with attending physician Dr. Veronique Thompson MD PGY-2 Internal Medicine Time Spent with Patient Time attestation: Total time spent providing and/or coordinating discharge services: Time spent: Greater than 30 minutes Exam Vital Signs Temp Pulse Resp BP Pulse Ox O2 Del Method O2 Flow Rate 97.0 F 79 19 116/90 H 97 Room Air 2 03/31/25 08:00 03/31/25 09:01 03/31/25 08:00 03/31/25 09:01 03/31/25 08:00 03/31/25 08:00 03/30/25 21:00 Narrative Exam General: AOx3, no acute distress, able to speak full sentences HEENT: NC/AT, mucous membranes moist, bilateral sclera anicteric Cardiovascular: regular rate and rhythm, S1/S2 present, no murmurs appreciated Pulmonary: clear to auscultation bilaterally, no rales/rhonchi/wheezes Abdominal: soft, non-tender, non-distended, PEG tube in place Musculoskeletal: large bruise on LUE 2/2 infiltration s/p blood transufusion Skin: warm and dry, intact, no rashes Neuro: CN II-XII intact, no focal deficits Discharge Plan Plan Patient Disposition: Xfer Skilled Nsg Fac (SNF) Care Plan Goals: ? Continue taking all other home medications as prescribed ? Started on hydrocortisone enema nightly for 30 days ? Started midodrine 5 mg as needed up to three times per day ? Follow-up with PCP within 1-2 weeks of discharge ? If you do not have a PCP, you can follow-up at the [facility] (you can call [phone] to make an appointment) ? Return to ED if symptoms worsen or recur Prescriptions/Referrals Prescriptions/Med Rec: New midodrine 5 mg Tablet 5 mg PO TID PRN (Reason: SBP <95) 30 Days Qty: 90 0RF hydrocortisone 100 mg/60 mL Enema 100 mg TX DAILY 30 Days Qty: 1800 0RF pantoprazole 40 mg tablet,delayed release (DR/EC) 40 mg PO QDAY 30 Days Qty: 30 0RF Continued ferrous sulfate [Gil-Time] 325 mg (65 mg iron) tablet 325 mg feeding tube QDAY multivitamin Tablet 1 tab feeding tube QDAY Qty: 30 0RF amiodarone 200 mg tablet 200 mg feeding tube BID 30 Days Qty: 60 0RF Discontinued quetiapine [Seroquel] 25 mg tablet 25 mg feeding tube ONCE HS PRN (Reason: agitation) 30 Days Qty: 30 0RF Referrals: No Primary/Family,Physician [Primary Care Provider] Patient/Caregiver Discharge Instructions Print Language: Uzbek Stand Alone Forms: Shara Award Info., Patient Portal Info Letter Discharge Order Discharge Orders: Discharge (Routine); Ordered 03/31/25 Ordered By: Kendell Lozano Orgabriela Quality Discharge Quality Measures VTE prophylaxis (SCD)
[2025-03-31 12:00] VITALS: BP 94/67; PULSE 57; PULSE 84; RESP 19; TEMP 36.1; O2SAT 99
[2025-03-31] MEDS: ALBUMIN HUMAN 25% IVPB 25 GM/100 ML BTL IV (14:24)
[2025-03-31] MEDS: RINGERS LACTATED 500 ML 500 ML 999 ML IV (14:28)
--- NOTE | 2025-03-31 15:41 | PC.SS ---
Patient has d/c orders for today. SS updated patient's spouse and facility. All documentation submitted. 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 Floor nurse aware. Patient to d/c to [facility]
[2025-03-31 16:00] VITALS: BP 95/75; PULSE 86; TEMP 36.1; O2SAT 98
--- NOTE | 2025-03-31 23:15 | PD.IMPROG ---
Documentation for date of: 03/31/25 Subjective Subjective Interval history: Late entry for the note Case discussed with internal medicine team Discussed colonoscopy findings Okay to discharge patient to be followed by the PCP Multiple colonic polyps endoscopically removed yesterday Patient has rectal ulcer Should be sent on hydrocortisone enema once daily Exam Vital Signs Temp Pulse Resp BP Pulse Ox O2 Del Method O2 Flow Rate 96.9 F 86 19 95/75 98 Room Air 2 03/31/25 16:00 03/31/25 16:00 03/31/25 12:00 03/31/25 16:00 03/31/25 16:00 03/31/25 16:00 03/30/25 21:00 Objective Labs 03/31/25 05:15 03/31/25 04:30 Labs: Laboratory Results - last 24 hr 03/31/25 03/31/25 04:30 05:15 WBC 6.9 RBC 3.13 L Hgb 8.9 L Hct 27.0 L MCV 86 MCH 28.4 MCHC 33.0 RDW Std Deviation 47.3 H Plt Count 416 D Neut % (Auto) 84 H Lymph % (Auto) 6 L [place] % (Auto) 3 Eos % (Auto) 2 Baso % (Auto) 0 Neut # (Auto) 5.8 Lymph # (Auto) 0.4 L [place] # (Auto) 0.2 Eos # (Auto) 0.1 Baso # (Auto) 0.0 Immature Gran # (Auto) 0.37 H Absolute Nucleated RBC 0.00 Immature Gran % 5 H Nucleated RBC % 0 Sodium 145 Potassium 3.1 L D Chloride 110 H Carbon Dioxide 24.8 Anion Gap 10 BUN 6 L Creatinine 0.8 Estim Creat Clear Calc 35.3 L eGFR > 60 BUN/Creatinine Ratio 8 L Glucose 96 Calculated Osmolality 286 Calcium 7.2 L Corrected Calcium 8.9 Magnesium 2.1 Total Bilirubin 0.4 AST 29 ALT 30 Alkaline Phosphatase 122 H Total Protein 3.6 L Albumin 1.9 L Globulin 1.7 L Albumin/Globulin Ratio 1.1 L Impressions Impression: Rectal ulcer hydrocortisone enema once a day as an outpatient Multiple removal of colonic polyps biopsies are pending to be followed by the PCP ABG Interpretation ABG results: 03/25/25 03/27/25 10:21 08:49 ABG pH 7.48 H 7.41 ABG pCO2 31 L 28 L ABG pO2 78 L 48 L* D ABG HCO3 23 18 L ABG O2 Saturation 97 84 L ABG Base Excess -1 -6 L Assessment & Plan A&P Narrative # Coffee-ground hematemesis could be the bleeding from the gastrostomy site with ulceration, possible peptic ulcer disease, possible Annie-Gardner tear # Postoperative anemia plan Fiberoptic esophagogastroduodenoscopy with possible therapeutic intervention possible biopsy under intravenous moderate sedation Consent will be obtained from the conservator and the patient has been scheduled tentatively for tomorrow Serial CBC Transfuse if the hemoglobin drops from 7 g IV Protonix Will follow the patient Other medical problems include Essential hypertension Paroxysmal atrial fibrillation Diabetes mellitus type 2 Questionable history of from the record review UC/colon carcinoma Thank you very much for the opportunity to participate in the care of this patient Time Spent With Patient Time: Total time spent is greater than 50% in coordination of care (as documented) at patient's floor/unit and/or counseling patient:
== END 2025-03-31 19:17 | disposition skilled nursing facility (03) | DRG 871 ==
LOC: SERX 10:54 → SERHOLD 15:38 → S2NX 18:19
PROVIDERS: Specialist; Student in an Organized Health Care Education/Training Program; Admitting Provider Student in an Organized Health Care Education/Training Program; Emergency Provider Emergency Medicine; Visit Provider Internal Medicine
PROC: (CPT 43239; principal; 2025-03-25 17:45)
PROC: 0DJ08ZZ Inspection of Upper Intestinal Tract, Via Natural or Artificial Opening Endoscopic (ICD-10-PCS; CPT 43239; principal; 2025-03-26 16:30)
PROC: 0DJD8ZZ Inspection of Lower Intestinal Tract, Via Natural or Artificial Opening Endoscopic (ICD-10-PCS; CPT 45378; principal; 2025-03-30 19:00)
DX: A41.9 Sepsis, unspecified organism (principal); G93.41 Metabolic encephalopathy; J18.9 Pneumonia, unspecified organism; J96.01 Acute respiratory failure with hypoxia; K20.91 Esophagitis, unspecified with bleeding; N17.9 Acute kidney failure, unspecified; E87.0 Hyperosmolality and hypernatremia; F05 Delirium due to known physiological condition; Z68.1 Body mass index [BMI] 19.9 or less, adult; K92.2 Gastrointestinal hemorrhage, unspecified; E87.1 Hypo-osmolality and hyponatremia; K62.6 Ulcer of anus and rectum; D62 Acute posthemorrhagic anemia; I48.0 Paroxysmal atrial fibrillation; Z93.1 Gastrostomy status; Z85.038 Personal history of other malignant neoplasm of large intestine; I10 Essential (primary) hypertension; F03.90 Unspecified dementia, unspecified severity, without behavioral disturbance, psychotic disturbance, mood disturbance, and anxiety; E11.9 Type 2 diabetes mellitus without complications; E78.5 Hyperlipidemia, unspecified; D75.839 Thrombocytosis, unspecified; R62.7 Adult failure to thrive; G89.4 Chronic pain syndrome; H40.9 Unspecified glaucoma; D64.9 Anemia, unspecified; K63.5 Polyp of colon; M85.80 Other specified disorders of bone density and structure, unspecified site; E87.6 Hypokalemia; R65.20 Severe sepsis without septic shock; Z78.1 Physical restraint status; Z79.899 Other long term (current) drug therapy; Z87.442 Personal history of urinary calculi; Z90.10 Acquired absence of unspecified breast and nipple; Z90.710 Acquired absence of both cervix and uterus; Z96.649 Presence of unspecified artificial hip joint
CPT/HCPCS: 36415; 36600; 71045; 80053; 80061; 80069; 81001; 82140; 82803; 83605; 83690; 83735; 83880; 84100; 84132; 84145; 84295; 84443; 84484; 85014; 85018; 85025; 85610; 85730; 86850; 86900; 86901; 86923; 87040; 87081; 87086; 87205; 87400; 87811; 93005; 94667; 96361; 96365; 96366; 96375; 97162; 99285; A4649; J0456; J0696; J1200; J2250; J2371; J2470; J2543; J3010; J3475; J3480; J7030; J7042; J7050; J7060; J7070; J7120; J7999; P9016; P9047; A9270

== ENCOUNTER 2025-04-03 10:02 | Emergency (ER) | payer MEDICARE, BC, SELFPAY ==
[2025-04-03] VITALS (7 sets, daily range): BP systolic 103–144; BP diastolic 52–81; PULSE 87–104; RESP 16–20; TEMP 36.2–36.8; O2SAT 95–100
--- NOTE | 2025-04-03 10:12 | EDNOTE_ITS ---
ED OB Contraction Preg RMI/HPI General Chief complaint: GI Bleed Stated complaint: RECTAL BLEEDING Time Seen by Provider: 04/03/25 10:12 Arrival date/time: 04/03/25 10:02 RME / HPI RME / HPI Narrative: DR. FAJARDO MAIN ED EVALUATION: 85-year-old female with past medical history of dementia, proximal atrial fibrillation on amiodarone, hypertension, type 2 diabetes mellitus, hyperlipidemia, ulcerative colitis, and history of colon cancer status post PEG tube placement presents to the Emergency Department BIB[facility] from [facility] with complaint of vaginal bleeding. Here, patient also has redness and raw appearance of the perineal area. Related Data Home Medications ?Medication ?Instructions ?Recorded ?Confirmed ferrous sulfate 325 mg (65 mg 325 mg feeding tube QDAY 03/24/25 03/24/25 iron) tablet (Gil-Time) Previous Rx's ?Medication ?Instructions ?Recorded amiodarone 200 mg tablet 200 mg feeding tube BID 1 mo nth 03/08/25 #60 tabs multivitamin 1 tab feeding tube QDAY #30 tabs 03/08/25 hydrocortisone 100 mg/60 mL enema 100 mg (60 mL) IN DA STELLA 30 days 03/31/25 #1,800 mL midodrine 5 mg tablet 5 mg PO TID PRN SBP <95 30 d ays 03/31/25 #90 tabs pantoprazole 40 mg tablet,delayed 40 mg PO QDAY 30 day s #30 tabs 03/31/25 release amoxicillin 500 mg-potassium 1 tab PO TID #20 tabs clavulanate 125 mg tablet (Augmentin) Allergies Allergy/AdvReac Type Severity Reaction Status Date / Time No Known Allergies Allergy Verified 03/24/25 08:45 Review of Systems Review of Systems Systems Reviewed: All systems reviewed, normal except as documented Past Medical History Past Medical History NEUROLOGIC: Positive Dementia and Alzheimer's Disease CARDIAC: Positive Cardiac Disorders, Atrial Fibrillation, Hypercholesterolemia and Hypertension RESPIRATORY: Positive Pneumonia GASTROINTESTINAL: Positive Gastrointestinal Disorders, Gastrointestinal Bleed, Colitis, Colorectal Cancer and Gastroesophageal Reflux Disease REPRODUCTIVE: Positive Previous Pregnancies MUSCULOSKELETAL: Positive Musculoskeletal Disorders, Arthritis and Carpal Tunnel Syndrome ENT: Positive Cataracts PSYCHO/SOCIAL: Positive Depression and Anxiety OTHER HISTORY: Positive Hospitalization, Falls, Chicken Pox, Measles, Mumps, Cancer and Colorectal Cancer Surgical History SURGICAL: Positive Eye Surgery, Tonsillectomy, Abdominal Surgery, Gastrostomy, Bowel Surgery, Lumpectomy (R BREAST) and Hysterectomy Social History SMOKING STATUS: Unknown if ever smoked SECOND HAND EXPOSURE: No SUBSTANCE USE: does not use ED Exam Narrative Physical exam: GENERAL APPEARANCE: alert and oriented x 4, well-developed, well-nourished, no acute distress VITALS: All vitals were reviewed and the pulse ox is 96% on room air, which is normal according to my interpretation. HEENT: Normocephalic, atraumatic; pupils equal, round, reactive to light; EOMI; mucous membranes pink, moist; oropharynx clear NECK: Supple LUNGS: CTABL; no wheezes, no rales, no rhonchi HEART: Regular rate, regular rhythm; normal S1, S2; no murmurs ABDOMEN: non distended; normal BS; soft, no tenderness, no guarding, no rebound; no masses, no organomegaly, no hernia BACK: no CVA tenderness EXTREMITIES: atraumatic; no edema NEUROLOGIC: awake; alert and oriented x4; cranial nerves II-XII grossly intact; no focal sensory or motor deficits PSYCHIATRIC: appropriate mood and affect SKIN: warm, dry, normal color; no rashes Course Quality Measures none Orders Category Date Time Status CT Screening NOW Care 04/03/25 11:[address] abdomen pelvis w con Stat Exams 04/03/25 11:52 Completed US pelvic complete Stat Exams 04/03/25 10:15 Completed Blood Culture (Lab) Stat Lab 04/03/25 15:41 Received CBC Stat Lab 04/03/25 12:50 Completed CMP [Comprehensive Metabolic Panel] Stat Lab 04/03/25 12:50 Completed Lactate (Lactic Acid) Stat Lab 04/03/25 15:41 Completed Mag [Magnesium] Stat Lab 04/03/25 12:50 Completed Procalcitonin Stat Lab 04/03/25 12:50 Completed UA, C/S IF [Urinalysis, C/S if Indicated] Stat Lab 04/03/25 10:36 Completed Calamine Lotion Med 04/03/25 10:16 Discontinued See Dose Instructions TOP X1 ONE Cod Liver Oil/Znox Cream [Desitin 40%] Med 04/03/25 10:12 Discontinued See Dose Instructions TOP X1 ONE Lidocaine/Prilocaine Cr 5Gm [Emla Cr] Med 04/03/25 10:30 Discontinued See Dose Instructions TOP X1 ONE Mupirocin Oint [Bactroban Oint] Med 04/03/25 10:14 Discontinued See Dose Instructions TOP X1 ONE Vital Signs Vital signs: Vital Signs Temperature 98.1 F 04/03/25 10:15 Pulse Rate 99 04/03/25 10:15 Respiratory Rate 16 04/03/25 10:15 Blood Pressure 144/63 H 04/03/25 10:15 Pulse Oximetry (%) 96 04/03/25 10:15 Oxygen Delivery Method Room Air 04/03/25 10:15 Vaginal Bleeding MDM Narrative MDM Narrative: 85-year-old female with past medical history of dementia, proximal atrial fibrillation on amiodarone, hypertension, type 2 diabetes mellitus, hyperlipidemia, ulcerative colitis, and history of colon cancer status post PEG tube placement with chief complaint of vaginal bleeding. Labs and a pelvic ultrasound ordered. Supportive care and wound/perineal skin management will be initiated. Abdomen/pelvis CT ordered. WBC of 15.6 Patient will be discharged with the following abnormal vaginal bleeding, rectal ulcer, leukocytosis, and a diaper rash. Batolo Low am scribing for and in the presence of Dr. Fajardo. Patient data External records reviewed:: [facility] previous records and EMS form Clinical information provided by:: patient and EMS Social determinants that could affect healthcare access:: housing ([facility]) Patient has the following chronic illnesses:: dementia, proximal atrial fibrillation on amiodarone, hypertension, type 2 diabetes mellitus, hyperlipidemia, ulcerative colitis, and history of colon cancer status post PEG tube placement How is presenting disease/condition affected by chronic disease/condition?: exacerbated by Evaluation data The following diagnostics were reviewed and interpreted by me:: lab results and radiology exam(s) Lab and/or radiology exams considered but not ordered:: none Interpretation Summary: See narrative above. RADIOLOGY Procedure(s): US pelvic complete Accession Number(s): [id number] cc: Aries Lentz MD; Sayda Fajardo MD; Liam Mistry MD~ Examination: Pelvic ultrasound, transabdominal, complete Technique: Transabdominal ultrasound of the pelvis performed using grayscale imaging Date and time of exam: April 03, 2025, 1040 hrs. Indications: Vaginal bleeding today Findings: Uterus 8.1 cm retroflexed Uterine fundal mass 5.0 x 3.8 x 4.5 cm minimal vascularity Endometrial stripe is not visualized Ovaries obscured by bowel gas Impression: Mildly vascular uterine fundal mass 5.0 x 3.8 x 4.5 cm partially indistinct margins, differential would include uterine fibroid degeneration, malignant neoplasm of the uterus not excluded Recommend elective MRI pelvis follow-up pre and postcontrast Procedure(s): CT abdomen pelvis w con Accession Number(s): [id number] cc: Aries Lentz MD; Sayda Fajardo MD; Liam Mistry MD~ Examination: CT abdomen with intravenous contrast CT pelvis with intravenous contrast 2-D coronal reconstructions 2-D sagittal reconstructions Date and time of exam:April 03, 2025, 1436 hrs. Indications: Rectal and vaginal bleeding with right buttock swelling and pain this week, primary hepatocellular disease, bilateral renal calculi on CT study September 27, 2020. CTDI: vol (mGy) 6.19 DLP: (mGycm) 288 Technique: Multiple axial sections of the abdomen and pelvis have been obtained. 64 slice high-resolution scanner used. 3 mm axial sections have been obtained, post intravenous injection 60 cc [id number] 2-D sagittal, coronal reconstructions obtained. Low dose protocols were performed. One or more of the following dose reduction techniques were used; automated exposure control, adjustment of the mA and/or KV according to patient size, use of iterative reconstruction technique. Findings: Pneumonia right base with moderate right pleural fluid mild left pleural fluid Liver is irregular in contour No gallstones Marked patient motion degrades and image quality Retrocardiac gastric hernia No pancreatic mass No renal or ureteral calculi Aortic calcification no aneurysmal dilatation Multiple fluid distended small bowel loops Normal appendix Markedly abnormal rectosigmoid, dilated with prominent irregular wall thickening, axial image 156 both anteriorly and posteriorly and significant rectal thickening distally Urinary Renteria catheter contracted around the urinary bladder Severe osteopenia with transpedicular lumbar stabilization L3-S1 Total right hip arthroplasty Severe lumbar levoscoliosis Impression: Pneumonia right base with moderate right pleural fluid Primary hepatocellular disease Patient motion severely degrades this study Multiple fluid distended small bowel loops Markedly abnormal rectosigmoid, dilated with prominent irregular wall thickening both anteriorly and posteriorly, for instance axial image 156 and significant rectal thickening, 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 Dictated By: Aries Lentz MD Medications / Prescriptions Medications or Prescriptions considered but not ordered:: none Medication administrations:: Medication Administration History Discontinued Medications Calamine (Calamine Lotion 120 Ml Btl) 0 ml TOP X1 ONE Stop: 04/03/25 10:17 Last Admin: 04/03/25 10:20 Dose: 1 applicatio Documented By: ED Lidocaine/Prilocaine (Lidocaine/Prilocaine Cr 5gm 5 Gm Tube) 0 gm TOP X1 ONE Stop: 04/03/25 10:31 Last Admin: 04/03/25 10:20 Dose: 5 gm Documented By: ED Mupirocin (Mupirocin Oint 2% 15 Gm Tube) 0 gm TOP X1 ONE Stop: 04/03/25 10:15 Last Admin: 04/03/25 10:20 Dose: 1 applicatio Documented By: ED Zinc Oxide (Cod [place] Oil/Znox Cream 40% 60 Gm Tube) 0 gm TOP X1 ONE Stop: 04/03/25 10:13 Last Admin: 04/03/25 10:20 Dose: 1 applicatio Documented By: ED see above Consultations Consultation(s) initiated? (list below): No Diagnosis Vaginal Bleeding Differential Diagnosis: other (Differential diagnoses include atrophic vaginitis, vaginal or vulvar infection, trauma or skin breakdown from incontinence, medication-related bleeding, and malignancy-related recurrence or post-surgical complications.) Most likely diagnosis given after review of the tests above:: Abnormal vaginal bleeding Rectal ulcer Leukocytosis Diaper rash Admission Indicated Admission indicated?: not indicated Admission Request Was there a request for admission?: No Disposition Plan Disposition Plan: Discharge Discharge Attestation Discharge Attestation: The patient and all family members were given an opportunity to ask questions and understood the discharge instructions. Discharge instructions specifically effects, indications for sooner follow up or return to the emergency department, and the expected course of current diagnosis. Patient condition: Stable Discharge Plan Plan Patient Disposition: Xfer Skilled Nsg Fac (SNF) Prescriptions/Referrals Prescriptions/Med Rec: New amoxicillin-pot clavulanate [Augmentin] 500-125 mg tablet 1 tab PO TID Qty: 20 0RF No Action ferrous sulfate [Gil-Time] 325 mg (65 mg iron) tablet 325 mg feeding tube QDAY midodrine 5 mg Tablet 5 mg PO TID PRN (Reason: SBP <95) 30 Days Qty: 90 0RF hydrocortisone 100 mg/60 mL Enema 100 mg IN DAILY 30 Days Qty: 1800 0RF pantoprazole 40 mg tablet,delayed release (DR/EC) 40 mg PO QDAY 30 Days Qty: 30 0RF multivitamin Tablet 1 tab feeding tube QDAY Qty: 30 0RF amiodarone 200 mg tablet 200 mg feeding tube BID 30 Days Qty: 60 0RF Referrals: Sarah Montes MD [Physician, Gastroenterology] Problem List Clinical Impression: Abnormal vaginal bleeding, Rectal ulcer, Leukocytosis, Diaper rash Patient/Caregiver Discharge Instructions Education Materials: ED Dysfunctional Uterine Bleeding, ED Lower GI Bleeding (Stable) Additional Instructions: Continue desitin and calamine on buttocks for skin protection. Change diaper frequently and maintain skin clean and dry. Follow up with your doctor for referral to gynecology for further management of vaginal bleeding. Follow up with Dr. Montes, gastroenterology, for colonoscopy results and further management of rectal bleeding. Continue hydrocortisone enemas. Print Language: Welsh Stand Alone Forms: [employer]., Patient Portal Info Letter
--- NOTE | 2025-04-03 10:15 | XR_ITS ---
Examination: Pelvic ultrasound, transabdominal, complete Technique: Transabdominal ultrasound of the pelvis performed using grayscale imaging Date and time of exam: April 03, 2025, 1040 hrs. Indications: Vaginal bleeding today Findings: Uterus 8.1 cm retroflexed Uterine fundal mass 5.0 x 3.8 x 4.5 cm minimal vascularity Endometrial stripe is not visualized Ovaries obscured by bowel gas Impression: Mildly vascular uterine fundal mass 5.0 x 3.8 x 4.5 cm partially indistinct margins, differential would include uterine fibroid degeneration, malignant neoplasm of the uterus not excluded Recommend elective MRI pelvis follow-up pre and postcontrast
--- NOTE | 2025-04-03 10:18 | PC.NURSE ---
Pt. here from [facility], to room 18, pt. sent here for rectal bleeding, pt. has blood coming from her vagina, pt. very dirty, pt. has BM in her folds in her perineum and in her vagina. Pt. jacey area and buttocks very moist and bright red, very excoriated. Skin is open and Dr. Fajardo bedside stating to wash jacey area and remove BM, don't wipe just wash with warm water. Pt. screaming and trying to clench her legs. Pt. has multiple bruising and left arm is very bruised, dark purple in color, pt. has only left breast and limb alert bracelet to right arm. Pt. has 4 round bones protruding from her middle back, no redness noted at this time. Pt. will only scream and say Gene, pt. will not answer questions, pt.keeps her eyes closed. Pt. cleaned, jacey care done and linen changed. Warm blanket given.
[2025-04-03] MEDS: MUPIROCIN OINT 2% 15 GM TUBE TOP (10:20)
[2025-04-03] MEDS: LIDOCAINE/PRILOCAINE CR 5GM 5 GM TUBE TOP (10:20)
[2025-04-03] MEDS: COD LIV OIL/ZNOX CREAM 40% 60 GM TUBE TOP (10:20)
[2025-04-03 10:54] LABS: Collection Type, Urine Catheter
[2025-04-03 11:02] LABS: Bilirubin,Urine Negative (Negative); Blood,Urine Negative (Negative); Clarity,Urine Clear (Clear/Hazy); Color,Urine Lt-Yellow (Lt Yel-Yel); Culture Indicated,Urine Not Indicated; Glucose, Urine Negative (Negative); Ketones,Urine Negative (Negative); Leukocyte Esterase,Urine Negative (Negative); Nitrite,Urine Negative (Negative); PH,Urine 8.0 (5.0-7.0); Protein,Urine 1+ (Neg - Trace); RBC,Urine 3 /hpf (0-3); Specific Gravity,Urine 1.014 (1.001-1.035); Squamous Epithelial Cell,Urine < 1 /hpf (0-5); Urobilinogen,Urine Negative mg/dL (0.0-1.0); WBC,Urine 4 /hpf (0-5)
--- NOTE | 2025-04-03 11:52 | XR_ITS ---
Examination: CT abdomen with intravenous contrast CT pelvis with intravenous contrast 2-D coronal reconstructions 2-D sagittal reconstructions Date and time of exam:April 03, 2025, 1436 hrs. Indications: Rectal and vaginal bleeding with right buttock swelling and pain this week, primary hepatocellular disease, bilateral renal calculi on CT study September 27, 2020. CTDI: vol (mGy) 6.19 DLP: (mGycm) 288 Technique: Multiple axial sections of the abdomen and pelvis have been obtained. 64 slice high-resolution scanner used. 3 mm axial sections have been obtained, post intravenous injection 60 cc [id number] 2-D sagittal, coronal reconstructions obtained. Low dose protocols were performed. One or more of the following dose reduction techniques were used; automated exposure control, adjustment of the mA and/or KV according to patient size, use of iterative reconstruction technique. Findings: Pneumonia right base with moderate right pleural fluid mild left pleural fluid Liver is irregular in contour No gallstones Marked patient motion degrades and image quality Retrocardiac gastric hernia No pancreatic mass No renal or ureteral calculi Aortic calcification no aneurysmal dilatation Multiple fluid distended small bowel loops Normal appendix Markedly abnormal rectosigmoid, dilated with prominent irregular wall thickening, axial image 156 both anteriorly and posteriorly and significant rectal thickening distally Urinary Renteria catheter contracted around the urinary bladder Severe osteopenia with transpedicular lumbar stabilization L3-S1 Total right hip arthroplasty Severe lumbar levoscoliosis Impression: Pneumonia right base with moderate right pleural fluid Primary hepatocellular disease Patient motion severely degrades this study Multiple fluid distended small bowel loops Markedly abnormal rectosigmoid, dilated with prominent irregular wall thickening both anteriorly and posteriorly, for instance axial image 156 and significant rectal thickening, 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
[2025-04-03 13:07] LABS: Basophils # (Auto) 0.0 Thou/mm3 (0.0-0.2); Basophils % (Auto) 0 % (0-2.5); Eosinophils # (Auto) 0.0 Thou/mm3 (0.0-0.5); Eosinophils % (Auto) 0 % (0-10); Hematocrit 30.5 % (36.0-46.0); Hemoglobin 9.8 g/dL (12.0-16.0); Immature Granulocytes Auto 0.17 Thou/mm3 (0.00-0.00); Lymphocytes # (Auto) 1.1 Thou/mm3 (1.0-4.8); Lymphocytes % (Auto) 7 % (10-50); Mean Corpuscular HGB Conc 32.1 g/dl (31.0-37.0); Mean Corpuscular Hemoglobin 28.3 pg (25.0-35.0); Mean Corpuscular Volume 88 fL (80-100); Monocytes # (Auto) 0.4 Thou/mm3 (0.0-0.8); Monocytes % (Auto) 3 % (0-12); Neutrophils # (Auto) 13.9 Thou/mm3 (1.8-7.7); Neutrophils % (Auto) 89 % (37-80); Nucleated Red Blood Cell # 0.00 Thou/mm3 (0.00-0.00); Nucleated Red Blood Cell % 0 /100 WBC (0); Platelet Count 405 Thou/mm3 (140-440); RDW Standard Deviation 51.1 fL (36.4-46.3); Red Blood Count 3.46 Miln/mm3 (4.00-5.20); White Blood Count 15.6 Thou/mm3 (3.6-11.0)
[2025-04-03 13:31] LABS: Alanine Aminotransferase 30 U/L (10-49); Albumin, Serum 2.7 gm/dL (3.4-4.8); Albumin/Globulin Ratio 1.2 (1.2-2.2); Alkaline Phosphatase 134 U/L (46-116); Anion Gap 9 (7-16); Aspartate Amino Transferase 31 U/L (0-34); BUN/Creatinine Ratio 18 Ratio (12-20); Bilirubin,Total 0.9 mg/dL (0.3-1.2); Blood Urea Nitrogen 14 mg/dL (9-23); Calcium 8.7 mg/dL (8.3-10.6); Calcium (Corrected) 9.7 mg/dL (8.5-10.1); Carbon Dioxide 25.6 mMol/L (20.0-31.0); Chloride 110 mMol/L (98-107); Creatinine (Component) 0.8 mg/dL (0.6-1.3); Globulin 2.2 gm/dL (2.3-3.5); Glucose 104 mg/dL (74-106); Magnesium 1.9 mg/dL (1.6-2.6); Osmolality,Calculated 289 (275-295); Potassium 4.6 mMol/L (3.4-5.1); Sodium 145 mMol/L (136-145); Total Protein 4.9 gm/dL (5.7-8.2); eGFR > 60 See Note
[2025-04-03 15:46] LABS: Lactate (Lactic Acid) 1.7 mMol/L (0.4-2.0)
[2025-04-03 15:46] LABS: Procalcitonin 0.34 ng/ml (0.0-0.49)
--- NOTE | 2025-04-03 16:34 | EVENTNT_ITS ---
Documentation for date of: 04/03/25 Event Note Event Note: Patient well known to service. She is an 85 year old female with PmHx of dementia, failure to thrive requiring PEG tube, rectal ulceration, colon polyps/adenomas, diverticulosis, afib, esophagitis, gastritis, anemia, who was brought to ED due to concern for rectal bleeding. However, per ED signout, patient appeared to have slow vaginal bleeding on exam. She was also found to have significant diaper dermatitis which she had on last admission as well. A CT abd/pelvis was done showing markedly abnormal rectosigmoid, dilated with prominent irregular wall thickening, both anteriorly and posteriorly. Patient had a colonoscopy recently on 03/30/25 during which patient was found to have a rectal mucosal ulceration and prescribed hydrocortisone enema. Patient was seen and evaluated in ED. She is resting comfortably, at her baseline mental status. Patient has been cleaned up and has pain in pelvic region due to erythema and tenderness to light palpation of excoriated and macerated skin due to dermatitis. No bleeding noted. Case discussed with GI and recent CT findings, recommends to continue with hydrocortisone enema and oral Abx. No interventions recommended at this time due to recent colonoscopy. H/H is stable and patient is hemodynamically stable. Mild leukocytosis may be from steroids or mild colitis. No fistula was noted on CT. Pelvic US shows possible fundal mass. Patient will need to f/u with ANIMAL CONTROL SUPERVISOR and GI outpatient. She is otherwise hemodynamically stable. Case discussed with Dr. Fajardo.
--- NOTE | 2025-04-03 16:47 | PC.NURSE ---
Pt. Gtube stoma area cleaned, removed clump of hair from site and new dry dressing applied, pt. tolerated well.
--- NOTE | 2025-04-03 18:34 | PC.NURSE ---
Pt. cleaned, linen change done, pt. tolerated well. Warm blankets given, pt. states thank you.
--- NOTE | 2025-04-03 20:43 | PC.NURSE ---
report called to snf.
== END 2025-04-03 20:46 | disposition skilled nursing facility (03) ==
PROVIDERS: Emergency Provider Emergency Medicine; PCP Family Medicine
DX: N93.9 Abnormal uterine and vaginal bleeding, unspecified (principal); K62.6 Ulcer of anus and rectum; L22 Diaper dermatitis; D72.829 Elevated white blood cell count, unspecified; I10 Essential (primary) hypertension; I48.0 Paroxysmal atrial fibrillation; E11.9 Type 2 diabetes mellitus without complications; E78.5 Hyperlipidemia, unspecified; Z85.038 Personal history of other malignant neoplasm of large intestine
CPT/HCPCS: 36415; 74177; 76856; 80053; 81001; 83605; 83735; 84145; 85025; 87040; 99284; A4649; Q9967; A9270

== ENCOUNTER 2025-04-08 22:56 | Emergency (ER) | payer MEDICARE, BC, SELFPAY ==
[2025-04-08 23:04] VITALS: BP 99/52; PULSE 126; RESP 22; TEMP 37.6; O2SAT 99
[2025-04-08 23:06] VITALS: PULSE 84; RESP 19; O2SAT 94
--- NOTE | 2025-04-08 23:10 | PD.EDADULT ---
ED General RME/HPI General Chief complaint: GI Bleed Stated complaint: RECTAL BLEED Time Seen by Provider: 04/09/25 00:08 Arrival date/time: 04/08/25 22:56 RME / HPI RME / HPI narrative: Ms. Thao is a 85-year-old female with past medical history of dementia, failure to thrive status post PEG tube placement, colon polyp/adenoma, diverticulosis, atrial fibrillation, esophagitis, gastritis and anemia who presented to [facility] emergency department from [facility] on 04/08/2025 with a chief complaint of rectal bleed. Patient has dementia at baseline, does not respond to questions, most history obtained from chart review. Patient was recently seen in the emergency department on 04/03 was found to have a vaginal bleed and was discharged back to [facility] as there was finding of possible uterine fibroid to follow-up with [facility]. Patient at bedside today has soaked diaper, on rectal exam has bright red blood in rectum and on vaginal exam patient does have active bright red blood. Patient is tachycardic and hypotensive, was given 1 L NS bolus, type and screen ordered. Related Data Home Medications ?Medication ?Instructions ?Recorded ?Confirmed ferrous sulfate 325 mg (65 mg 325 mg feeding tube QDAY 03/24/25 03/24/25 iron) tablet (Gil-Time) Previous Rx's ?Medication ?Instructions ?Recorded multivitamin 1 tab feeding tube QDAY #30 tabs 03/08/25 hydrocortisone 100 mg/60 mL enema 100 mg (60 mL) NJ DAILY 30 days 03/31/25 #1,800 mL midodrine 5 mg tablet 5 mg PO TID PRN SBP <95 30 days 03/31/25 #90 tabs pantoprazole 40 mg tablet,delayed 40 mg PO QDAY 30 days #30 tabs 03/31/25 release amoxicillin 500 mg-potassium 1 tab PO TID #20 tabs 04/03/25 clavulanate 125 mg tablet (Augmentin) Allergies Allergy/AdvReac Type Severity Reaction Status Date / Time No Known Allergies Allergy Verified 03/24/25 08:45 Review of Systems Review of Systems ROS Unobtainable: unobtainable due to mental status Past Medical History Past Medical History NEUROLOGIC: Positive Dementia and Alzheimer's Disease CARDIAC: Positive Cardiac Disorders, Atrial Fibrillation, Hypercholesterolemia and Hypertension RESPIRATORY: Positive Pneumonia GASTROINTESTINAL: Positive Gastrointestinal Disorders, Gastrointestinal Bleed, Colitis, Colorectal Cancer and Gastroesophageal Reflux Disease REPRODUCTIVE: Positive Previous Pregnancies MUSCULOSKELETAL: Positive Musculoskeletal Disorders, Arthritis and Carpal Tunnel Syndrome ENT: Positive Cataracts PSYCHO/SOCIAL: Positive Depression and Anxiety OTHER HISTORY: Positive Hospitalization, Falls, Chicken Pox, Measles, Mumps, Cancer and Colorectal Cancer Surgical History SURGICAL: Positive Eye Surgery, Tonsillectomy, Abdominal Surgery, Gastrostomy, Bowel Surgery, Lumpectomy (R BREAST) and Hysterectomy Social History SMOKING STATUS: Unknown if ever smoked SECOND HAND EXPOSURE: No SUBSTANCE USE: does not use ED Exam Narrative Physical exam: Physical Exam General: Awake and in moderate acute distress. HEENT: Normocephalic, atraumatic, mucous membranes moist. Heart: Sinus Tachycardia, no murmurs. Lungs: Clear to auscultation with no wheezing or crackles. Abdomen: Soft, nondistended, nontender, positive bowel sounds. PEG Tube noted.?No guarding or rebound tenderness. Neurologic: Alert and oriented x0, incomprehensible sounds, GCS 9, no gross neurological deficit, and patient able to move all 4 extremities. Extremities: No edema. Skin: Diaper dermatitis and suspicion of fungal superinfection Course Course Course Narrative: 85-year-old female seen in the ER for rectal bleeding Noted to have active rectal and vaginal bleeding Patient tachycardic and hypotensive on presentation, given 1 L NS bolus Workup: EKG shows Sinus tachycardia, rate 129, QTc 564. CBC: WBC 10.5, RBC 2.65, hemoglobin 7.4, hematocrit 24.3, smear sent to pathology for review Coags: INR 1.0, PT and APTT normal CMP: Sodium 142, potassium 6.0, chloride 105, bicarb 25.8, BUN 33, creatinine 1.3, GFR 41 glucose 110, lactate 4.1, corrected calcium 10.3, phosphorus 3.7, magnesium 2.5, total bilirubin 0.7, AST 26, ALT 21, alk phos 142, troponin negative, total protein 6.2, albumin 3.4, Pro-Rob 0.32 Urine analysis shows turbid urine pH 7.5, protein 1+, blood 3+, RBC 58, WBC 959, amorphous crystals present, bacteria rare, hyphae present, yeast present Urine sent for culture BMP repeated sodium 142, potassium 5.9, chloride 108, bicarb 24.2, anion gap 10, BUN 30, creatinine 1.4, GFR 37, glucose 109, osmolality 290, calcium 9.2 CTAP w con: No contrast extravasation in the stomach, small or large bowel loops to suggest active gastrointestinal hemorrhage at the time of examination. Distended rectum containing fecal material and fluid with adjacent bowel anastomotic sutures, possibility of underlying neoplasm cannot be excluded. Recommend follow-up with proctoscopy. Both kidneys demonstrates heterogeneous enhancement, likely representing renal infarcts versus pyelonephritis. Nonobstructing left renal calculi. Patient was given 1 L NS bolus, loading dose Protonix, ceftriaxone x1, calcium chloride 10 cc x 1, dextrose 100 cc albuterol 10 mg inhalation x 1, regular insulin 5 units IV x 1 Will transfuse 1 unit PRBC hemoglobin dropped from 9.8-7.4 from 04/03-04/09 Case discussed with hospitalist team for admission, hospitalist is requesting [facility] consult prior to admission [address] 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 applications developer she reported she will review the case 0548: Pending [facility] evaluation will be signed out to Dr Jorge ED Physician Quality Measures none Orders Category Date Time Status Bedside Blood Glucose Q2HX3 Care 04/09/25 01:[address] Screening NOW Care 04/08/25 23:[address] Screening X1 Care 04/08/25 23:21 Completed EKG (ED ONLY) *Do not use* NOW Care 04/08/25 23:11 Completed Renteria [Urinary Catheter] QS Care 04/08/25 23:39 Active Insert IV NOW Care 04/08/25 23:11 Active Nurse Swallow Screen X1 Care 04/08/25 23:30 Active Transfuse,blood/blood products NOW Care 04/09/25 01:29 Active Consult to Gynecology Stat Cons 04/09/25 02:[address] abdomen pelvis w con Stat Exams 04/08/25 23:21 Taken EKG (ED Only) Stat Exams 04/08/25 23:11 Draft BMP [Basic Metabolic Panel] Stat Lab 04/09/25 01:10 Completed CBC AM DRAW Lab 04/10/25 05:00 Ordered CBC Stat Lab 04/08/25 23:35 Completed CMP [Comprehensive Metabolic Panel] AM DRAW Lab 04/09/25 05:00 Ordered CMP [Comprehensive Metabolic Panel] Stat Lab 04/08/25 23:35 Completed INR [Prothrombin Time with INR] Stat Lab 04/08/25 23:35 Completed Lactate (Lactic Acid) Stat Lab 04/08/25 23:35 Completed Lactic Acid, 3 HR Stat Lab 04/09/25 03:00 Completed Magnesium Stat Lab 04/08/25 23:35 Completed PTT [Partial Thromboplastin Time] Stat Lab 04/08/25 23:35 Completed Path Review Blood Smear Stat Lab 04/09/25 01:10 Completed Phosphorous Stat Lab 04/08/25 23:35 Completed Procalcitonin Stat Lab 04/08/25 23:35 Completed Troponin I Stat Lab 04/09/25 01:10 Completed Type and Screen Stat Lab 04/08/25 23:35 Completed Urinalysis, C/S if Indicated Stat Lab 04/08/25 23:45 Completed Urine Culture Stat Lab 04/08/25 23:45 Received prbc [Red Blood Cells] Stat Lab 04/09/25 01:29 Completed ALBUTEROL RT 0.5ml [Proventil Rt 0.5ml] Med 04/09/25 01:51 Discontinued 10 mg INH X1 ONE ALBUTEROL RT 5 ml [Proventil Rt 5 ml] Med 04/09/25 01:35 Discontinued 10 mg INH X1 ONE Calcium Chloride 10% Abboject Med 04/09/25 01:35 Discontinued 10 ml IV X1 ONE Dextrose 50% Syr [D50w Syringe Abboject] Med 04/09/25 01:35 Discontinued 100 ml IV X1 ONE Dextrose 50% Syr [D50w Syringe Abboject] Med 04/09/25 01:35 Active 25 ml IV Q15MIN PRN Dextrose 50% Syr [D50w Syringe Abboject] Med 04/09/25 01:35 Active 50 ml IV Q15MIN PRN Glucagon Inj Med 04/09/25 01:35 Active 1 mg IM Q15MIN PRN Hydrocortisone Oint 1% Med 04/09/25 09:00 Active See Dose Instructions TOP BID Insulin Regular Med 04/09/25 01:35 Discontinued 5 unit IV X1 ONE Miconazole Nitrate Cr 2% Med 04/09/25 09:00 Active See Dose Instructions TOP BID Pantoprazole Inj [Protonix Inj] Med 04/09/25 09:00 Active 40 mg IVP BID Pantoprazole Inj [Protonix Inj] Med 04/08/25 23:22 Discontinued 80 mg IVP X1 ONE Sodium Chloride 0.9% 1000 ml [Ns] 1,000 ml Med 04/08/25 23:17 Discontinued IV 999 mls/hr Sodium Chloride Rt Marilyn 0.9% [NS Rt Marilyn 0.9%] Med 04/09/25 01:51 Active 3 ml INH PRN PRN cefTRIAXone [Rocephin] 2 gm Med 04/09/25 00:05 Discontinued SODIUM CHLORIDE 0.9% (Popper) [Ns 0.9% (P)] 50 ml IV X1 Vital Signs Vital signs: Vital Signs Temperature 99.7 F 04/08/25 23:04 Pulse Rate 126 H 04/08/25 23:04 Respiratory Rate 22 H 04/08/25 23:04 Blood Pressure 99/52 L 04/08/25 23:04 Pulse Oximetry (%) 99 04/08/25 23:04 Oxygen Delivery Method Room Air 04/08/25 23:04 Discharge Plan Prescriptions/Referrals Prescriptions/Med Rec: No Action ferrous sulfate [Gil-Time] 325 mg (65 mg iron) tablet 325 mg feeding tube QDAY midodrine 5 mg Tablet 5 mg PO TID PRN (Reason: SBP <95) 30 Days Qty: 90 0RF hydrocortisone 100 mg/60 mL Enema 100 mg NJ DAILY 30 Days Qty: 1800 0RF pantoprazole 40 mg tablet,delayed release (DR/EC) 40 mg PO QDAY 30 Days Qty: 30 0RF multivitamin Tablet 1 tab feeding tube QDAY Qty: 30 0RF amoxicillin-pot clavulanate [Augmentin] 500-125 mg tablet 1 tab PO TID Qty: 20 0RF Referrals: No Primary/Family,Physician [Primary Care Provider] - In 1 week Problem List Clinical Impression: GI bleed, Abnormal vaginal bleeding Patient/Caregiver Discharge Instructions Print Language: Kiswahili MDM Narrative MDM hospital course (for use when minimal MDM required): #Acute anemia secondary to blood loss #Acute GI bleed lower versus upper #Acute vaginal bleeding #Urinary tract infection #LU with hyperkalemia #Diaper dermatitis and suspicion of fungal superinfection 85-year-old female seen in the ER for rectal bleeding Noted to have active rectal and vaginal bleeding Patient tachycardic and hypotensive on presentation, given 1 L NS bolus EKG shows Sinus tachycardia, rate 129 RBC 2.65, hemoglobin 7.4, hematocrit 24.3, smear sent to pathology for review, INR 1.0 Potassium 6.0, BUN 33, creatinine 1.3, GFR 4, lactate 4.1, corrected calcium 10.3 Urine analysis shows turbid urine pH 7.5, protein 1+, blood 3+, RBC 58, WBC 959, amorphous crystals present, bacteria rare, hyphae present, yeast present Urine sent for culture BMP repeated sodium 142, potassium 5.9, chloride 108, bicarb 24.2, anion gap 10, BUN 30, creatinine 1.4, GFR 37, glucose 109, osmolality 290, calcium 9.2 CTAP w con: No contrast extravasation in the stomach, small or large bowel loops to suggest active gastrointestinal hemorrhage at the time of examination. Distended rectum containing fecal material and fluid with adjacent bowel anastomotic sutures, possibility of underlying neoplasm cannot be excluded. Recommend follow-up with proctoscopy. Both kidneys demonstrates heterogeneous enhancement, likely representing renal infarcts versus pyelonephritis. Nonobstructing left renal calculi. Patient was given 1 L NS bolus, loading dose Protonix, ceftriaxone x1, calcium chloride 10 cc x 1, dextrose 100 cc albuterol 10 mg inhalation x 1, regular insulin 5 units IV x 1 Will transfuse 1 unit PRBC hemoglobin dropped from 9.8-7.4 from 04/03-04/09 Case discussed with hospitalist team for admission, hospitalist is requesting [facility] consult prior to admission [address] 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 applications developer she reported she will review the case 0548: Pending [facility] evaluation will be signed out to Dr Jorge ED Physician Case discussed with Attending Physician Dr. Tamir Rodgers MD Internal Medicine PGY-2 Disclaimer: This note was dictated by speech recognition. Minor errors in cda teacher may be present due to voice recognition software. Clinical Information Provided by: EMS Medical Records reviewed [facility] and intermediate Meds/Rx considered, not ordered None Labs/Rad/Tests considered, not ordered None EKG Interpretation EKG #1: EKG Interpretation: EKG shows Sinus tachycardia, rate 129, QTc 564 Labs Labs: interpreted by il Lab(s) Interpretation(s): CBC: WBC 10.5, RBC 2.65, hemoglobin 7.4, hematocrit 24.3, smear sent to pathology for review Coags: INR 1.0, PT and APTT normal CMP: Sodium 142, potassium 6.0, chloride 105, bicarb 25.8, BUN 33, creatinine 1.3, GFR 41 glucose 110, lactate 4.1, corrected calcium 10.3, phosphorus 3.7, magnesium 2.5, total bilirubin 0.7, AST 26, ALT 21, alk phos 142, troponin negative, total protein 6.2, albumin 3.4, Pro-Rob 0.32 Urine analysis shows turbid urine pH 7.5, protein 1+, blood 3+, RBC 58, WBC 959, amorphous crystals present, bacteria rare, hyphae present, yeast present Urine sent for culture BMP repeated sodium 142, potassium 5.9, chloride 108, bicarb 24.2, anion gap 10, BUN 30, creatinine 1.4, GFR 37, glucose 109, osmolality 290, calcium 9.2 Imaging Imaging interpretation: interpreted by me Imaging Interpretation(s): CTAP w con: No contrast extravasation in the stomach, small or large bowel loops to suggest active gastrointestinal hemorrhage at the time of examination. Distended rectum containing fecal material and fluid with adjacent bowel anastomotic sutures, possibility of underlying neoplasm cannot be excluded. Recommend follow-up with proctoscopy. Both kidneys demonstrates heterogeneous enhancement, likely representing renal infarcts versus pyelonephritis. Nonobstructing left renal calculi. Medication Administration(s) Medication Administration History Dextrose (Dextrose 50%-Water Inj 50 Ml Syringe) 25 ml IV Q15MIN PRN PRN Reason: BG 50-70 responsive npo pt Stop: 05/09/25 01:34 Dextrose (Dextrose 50%-Water Inj 50 Ml Syringe) 50 ml IV Q15MIN PRN PRN Reason: BG <50 OR BG <70 & pt unresponsive Stop: 05/09/25 01:34 Glucagon (Glucagon Inj 1 Mg Vial) 1 mg IM Q15MIN PRN PRN Reason: BG <70, and no IV access Hydrocortisone (Hydrocortisone Oint 1% 30 Gm Tube) 0 gm TOP BID LORNE Stop: 05/09/25 08:59 Miconazole Nitrate (Miconazole Nitrate Cr 2% 15 Gm Tube) 0 gm TOP BID LORNE Stop: 05/09/25 08:59 Pantoprazole Sodium (Pantoprazole Inj 40 Mg Vial) 40 mg IVP BID LORNE Stop: 05/09/25 08:59 Sodium Chloride (Sodium Chloride Rt Marilyn 0.9% 3 Ml Nebu) 3 ml INH PRN PRN PRN Reason: SOLN Stop: 05/09/25 01:50 Discontinued Medications Albuterol (Albuterol Rt 25 Mg/5 Ml Nebu) 10 mg INH X1 ONE Stop: 04/09/25 01:36 Last Admin: 04/09/25 02:01 Dose: Not Given Documented By: NEIL Non-Admin Reason: Duplicate Medication on eMAR Albuterol (Albuterol Rt 2.5 Mg/0.5 Ml Nebu) 10 mg INH X1 ONE Stop: 04/09/25 01:52 Last Admin: 04/09/25 02:01 Dose: 10 mg Documented By: NEIL Calcium Chloride (Calcium Chloride 10% Inj 10 Ml Syrg) 10 ml IV X1 ONE Stop: 04/09/25 01:36 Last Admin: 04/09/25 01:58 Dose: 10 ml Documented By: YVONNE Dextrose (Dextrose 50%-Water Inj 50 Ml Syringe) 100 ml IV X1 ONE Stop: 04/09/25 01:36 Last Admin: 04/09/25 01:59 Dose: 100 ml Documented By: YVONNE Sodium Chloride (Ns) 1,000 mls @ 999 mls/hr IV .Q1H1M ONE Stop: 04/09/25 00:17 Last Infusion: 04/09/25 03:30 Dose: Infused Documented By: Admin: 04/08/25 23:54 Dose: 999 mls/hr Documented By: ALIYAH Ceftriaxone Sodium 2 gm/ (Sodium Chloride) 50 mls @ 100 mls/hr IV X1 ONE Stop: 04/09/25 00:34 Last Infusion: 04/09/25 01:00 Dose: Infused Documented By: Admin: 04/09/25 00:19 Dose: 100 mls/hr Documented By: ALIYAH Insulin Human Regular (Insulin Hum Regular 1 Unit/0.01 Ml (Per Unit)) 5 unit IV X1 ONE Stop: 04/09/25 01:36 Last Admin: 04/09/25 02:03 Dose: 5 unit Documented By: YVONNE Co-signed By: ALIYAH Pantoprazole Sodium (Pantoprazole Inj 40 Mg Vial) 80 mg IVP X1 ONE Stop: 04/08/25 23:23 Last Admin: 04/08/25 23:55 Dose: 80 mg Documented By: ALIYAH Diagnosis Differential Diagnosis ED Complaint MDM: GI Bleed, Vaginal Bleed, Acute anemia 2/2 blood loss
--- NOTE | 2025-04-08 23:11 | EKG_ITS ---
[facility] Test Date: 2025-04-08 Pat Name: MELLY SMILEY Department: Room: - Gender: Female [employer] Supervisor: : 1940 Requested By: Darnell Rodgers Order Number: [id number] Reading MD: Darnell Rodgers Measurements Intervals [place] Rate: 129 P: 86 NJ: 158 QRS: 23 QRSD: 66 T: 81 QT: 384 QTc: 564 Interpretive Statements SINUS TACHYCARDIA LOW QRS VOLTAGE IN PRECORDIAL LEADS [QRS DEFLECTION < 1.0 mV IN CHEST LEADS] MINIMAL ST DEPRESSION [0.025+ mV ST DEPRESSION] ABNORMAL RHYTHM ECG Compared to ECG 03/25/2025 16:41:38 ST (T wave) deviation now present Sinus rhythm no longer present T-wave abnormality no longer present /store/S0/[id number]/[id number].pdf
--- NOTE | 2025-04-08 23:21 | XR_ITS ---
Examination: CT abdomen with intravenous contrast CT pelvis with intravenous contrast 2-D coronal reconstructions 2-D sagittal reconstructions Date and time of exam:April 09, 2025 0044 hrs. Indications: Lower gastrointestinal and rectal bleeding today. CTDI: vol (mGy) 4.91 DLP: (mGycm) 278 Technique: Multiple axial sections of the abdomen and pelvis have been obtained. 64 slice high-resolution scanner used. 3 mm axial sections have been obtained, post intravenous injection 60 cc [id number] 2-D sagittal, coronal reconstructions obtained. Low dose protocols were performed. One or more of the following dose reduction techniques were used; automated exposure control, adjustment of the mA and/or KV according to patient size, use of iterative reconstruction technique. Findings: No focal liver or splenic lesions No gallstones Gastrostomy tube satisfactory position Heavy abdominal aortic calcification No pancreatic mass Focal areas of edema in both kidneys with left renal calculi, the largest 4 mm Abundant stool throughout the colon Normal appendix Large amounts of stool in the rectum with irregular rectal wall thickening Sutures in the rectosigmoid Impression: No focal gastrointestinal bleeding site Edema in both kidneys consider pyelonephritis Abnormal rectum, large amounts of stool in the rectum with irregular rectal wall thickening, recommend direct inspection to exclude rectal tumor
[2025-04-08 23:52] LABS: Collection Type, Urine Clean Catch
[2025-04-08] MEDS: SODIUM CHLORIDE 0.9% 1000 ML 1,000 ML 999 ML IV (23:54)
[2025-04-08 23:59] LABS: Amorphous Crystals,Urine Present (Absent); Bacteria,Urine Rare; Bilirubin,Urine Negative (Negative); Blood,Urine 3+ (Negative); Budding Yeast,Urine Present; Color,Urine Yellow (Lt Yel-Yel); Glucose, Urine Negative (Negative); Hyphae Yeast Present; Ketones,Urine Negative (Negative); Leukocyte Esterase,Urine Positive (Negative); Nitrite,Urine Negative (Negative); PH,Urine 7.5 (5.0-7.0); Protein,Urine 1+ (Neg - Trace); RBC,Urine 58 /hpf (0-3); Specific Gravity,Urine 1.015 (1.001-1.035); Squamous Epithelial Cell,Urine 5 /hpf (0-5); Urobilinogen,Urine Negative mg/dL (0.0-1.0); WBC,Urine 959 /hpf (0-5)
[2025-04-09] VITALS (14 sets, daily range): BP systolic 89–148; BP diastolic 25–85; PULSE 77–113; RESP 15–21; TEMP 36.1–37.8; O2SAT 97–100; BMI 19.7
[2025-04-09 00:01] LABS: Clarity,Urine Turbid (Clear/Hazy); Culture Indicated,Urine Yes
[2025-04-09 00:02] LABS: Lactate (Lactic Acid) 4.1 mMol/L (0.4-2.0)
[2025-04-09 00:09] LABS: Alanine Aminotransferase 21 U/L (10-49); Albumin, Serum 3.4 gm/dL (3.4-4.8); Albumin/Globulin Ratio 1.2 (1.2-2.2); Alkaline Phosphatase 142 U/L (46-116); Anion Gap 11 (7-16); Aspartate Amino Transferase 26 U/L (0-34); BUN/Creatinine Ratio 25 Ratio (12-20); Bilirubin,Total 0.7 mg/dL (0.3-1.2); Blood Urea Nitrogen 33 mg/dL (9-23); Calcium 9.8 mg/dL (8.3-10.6); Calcium (Corrected) 10.3 mg/dL (8.5-10.1); Carbon Dioxide 25.8 mMol/L (20.0-31.0); Chloride 105 mMol/L (98-107); Creatinine (Component) 1.3 mg/dL (0.6-1.3); Globulin 2.8 gm/dL (2.3-3.5); Glucose 110 mg/dL (74-106); Magnesium 2.5 mg/dL (1.6-2.6); Osmolality,Calculated 291 (275-295); Phosphorous 3.7 mg/dL (2.4-5.1); Potassium 6.0 mMol/L (3.4-5.1); Procalcitonin 0.32 ng/ml (0.0-0.49); Sodium 142 mMol/L (136-145); Total Protein 6.2 gm/dL (5.7-8.2); eGFR 41 See Note
[2025-04-09] MEDS: cefTRIAXone 2 GM in SODIUM CHLORIDE 0.9% (Popper) 50 ML IV (00:19)
[2025-04-09 00:32] LABS: INR 1.0 (0.9-1.3); Partial Thromboplastin Time 23.7 Seconds (22.0-36.0); Prothrombin Time 10.7 Seconds (9.0-12.2)
[2025-04-09 01:18] LABS: Basophils # (Auto) 0.0 Thou/mm3 (0.0-0.2); Basophils % (Auto) 0 % (0-2.5); Eosinophils # (Auto) 0.0 Thou/mm3 (0.0-0.5); Eosinophils % (Auto) 0 % (0-10); Hematocrit 24.3 % (36.0-46.0); Immature Granulocytes Auto 0.04 Thou/mm3 (0.00-0.00); Lymphocytes # (Auto) 1.2 Thou/mm3 (1.0-4.8); Lymphocytes % (Auto) 11 % (10-50); Mean Corpuscular HGB Conc 30.5 g/dl (31.0-37.0); Mean Corpuscular Hemoglobin 27.9 pg (25.0-35.0); Mean Corpuscular Volume 92 fL (80-100); Monocytes # (Auto) 0.5 Thou/mm3 (0.0-0.8); Monocytes % (Auto) 5 % (0-12); Neutrophils # (Auto) 8.7 Thou/mm3 (1.8-7.7); Neutrophils % (Auto) 83 % (37-80); Nucleated Red Blood Cell # 0.00 Thou/mm3 (0.00-0.00); Nucleated Red Blood Cell % 0 /100 WBC (0); Platelet Count 393 Thou/mm3 (140-440); RDW Standard Deviation 56.6 fL (36.4-46.3); Red Blood Count 2.65 Miln/mm3 (4.00-5.20); White Blood Count 10.5 Thou/mm3 (3.6-11.0)
[2025-04-09 01:22] LABS: Hemoglobin 7.4 g/dL (12.0-16.0)
[2025-04-09 01:33] LABS: Anion Gap 10 (7-16); BUN/Creatinine Ratio 21 Ratio (12-20); Blood Urea Nitrogen 30 mg/dL (9-23); Calcium 9.2 mg/dL (8.3-10.6); Carbon Dioxide 24.2 mMol/L (20.0-31.0); Chloride 108 mMol/L (98-107); Creatinine (Component) 1.4 mg/dL (0.6-1.3); Glucose 109 mg/dL (74-106); Osmolality,Calculated 290 (275-295); Potassium 5.8 mMol/L (3.4-5.1); Sodium 142 mMol/L (136-145); Troponin I < 0.020 ng/mL (0.0-0.045); eGFR 37 See Note
[2025-04-09 01:49] LABS: Path Review Blood Smear Sent to Pathologist
[2025-04-09] MEDS: CALCIUM CHLORIDE 10% INJ 10 ML SYRG IV (01:58)
[2025-04-09] MEDS: DEXTROSE 50%-WATER INJ 50 ML SYRINGE 100 ML IV (01:59)
[2025-04-09] MEDS: ALBUTEROL RT 2.5 MG/0.5 ML NEBU 10 MG INH (02:01)
[2025-04-09] MEDS: INSULIN HUM REGULAR 1 UNIT/0.01 ML (PER UNIT) 5 UNIT IV (02:03)
[2025-04-09 02:40] LABS: Reflex Lactate? Y
--- NOTE | 2025-04-09 02:53 | PRELIM_ITS ---
CT scan of the abdomen and pelvis with intravenous contrast (axial sections with sagittal and coronal reformats) April 09, 2025 0040 hours Clinical History: Lower GI Bleed No prior study is available for comparison. Findings: The evaluation is limited due to motion and streak artifacts. Bibasilar dependent atelectasis is present. Nonobstructing left renal calculi are seen, the largest measuring 4 mm. Both kidneys demonstrates heterogeneous enhancement. No evidence of hydronephrosis or obstructing calculus. The liver, gallbladder, pancreas, spleen and adrenals are unremarkable. A percutaneous gastrostomy tube is seen with its bulb within the body of the stomach. No evidence of bowel obstruction. The appendix is within normal limits. Moderate amount of fecal material is present in the colon. The rectum is distended with fecal material and fluid with adjacent bowel anastomotic sutures. A Renteria catheter is seen in incompletely distended urinary bladder. There is no free fluid or free air. The aorta and its branches demonstrate atheromatous calcification without evidence of aneurysm. There is no adenopathy. Right hip implant is seen. There is spinal fusion at the T11-S1 level with fusion rods and pedicle screws. Mild degenerative changes are identified in the spine. Impression: Limited evaluation as described. No contrast extravasation in the stomach, small or large bowel loops to suggest active gastrointestinal hemorrhage at the time of examination. Distended rectum containing fecal material and fluid with adjacent bowel anastomotic sutures, possibility of underlying neoplasm cannot be excluded. Recommend follow-up with proctoscopy. Both kidneys demonstrates heterogeneous enhancement, likely representing renal infarcts versus pyelonephritis. Nonobstructing left renal calculi. Other findings as described above. Report Electronically Signed By: Jae Moy 04/09/2025 2:52:39 AM [EST]
[2025-04-09 03:18] LABS: Lactic Acid, 3 HR 3.8 mMol/L (0.4-2.0)
[2025-04-09] MEDS: HYDROCORTISONE 1% TOP (09:50)
[2025-04-09] MEDS: MICONAZOLE NITRATE CR 2% 15 GM TUBE TOP (09:50)
--- NOTE | 2025-04-09 10:27 | PD.EDADDENDU ---
Emergency Room Addendum Addendum Narrative: 0600: Care assumed from Dr. Rodgers PGY-[address] Garnett, the previous shift emergency physician. Past medical, surgical, social and family history reviewed. Vitals and home medications reviewed. I will assume the care of the patient at this time, pending OBGYN consultation prior to admission. Please refer to the emergency department record for history and examination from initial visit.?The following addendum documentation note is intended to reflect any pending information, findings, or radiology results not included in the patient?s initial chart. 1130: Notified by RN that the patient continues to have vaginal bleeding and was transfused 1 unit of PRBC last night. States he made contact with OBGYN Dr. Coreas (who was consulted last night) and the case signed out to Dr. Portillo. 1135: I called OBGYN Dr. Portillo. No answer. Left a voicemail. 1200: I spoke with GI Dr. Montes. Discussed patients PMHx, HPI, ED course, labs, and radiology results. States the rectal bleeding must be due to a rectal ulcer and reportedly in the past recommended the patient receive hydrocortisone enemas. States there is nothing more to do at this time. 1215: I spoke with OBGYN Dr. Portillo. Discussed patients PMHx, HPI, ED course, exam findings, labs, and radiology results. States at this time patient is not a candidate for surgery due to advanced MS. Recommends starting the patient on Megace. 1220: I spoke with patients Gene @ [phone]. Discussed patients ED course and todays findings. Had a long discussion about code status. At this time states he would like the patient to be in hospice care. 1420: Notified by social insurance specialist that because of her insurance she would need to pay [id number] for hospice care. Jorge Alberto she made the aware and at this time does not want to pay [id number]. States she has contacted the social insurance specialist at the facility to assist in applying for medicare/medical for hospice care. Patient will be discharged back to skilled nursing.
--- NOTE | 2025-04-09 11:15 | PC.NURSE ---
CALLED DR. STRATTON [place] TO INQUIRE ABOUT THE CONSULT ON THIS PT BECAUSE THE PT STILL HAVING VAGINAL BLEEDING, DR. STRATTON REPORTED BACK TO ME TO GET AHOLD OF DR. MCKINNEY WHO IS YARD JOCKEY NOW, DR. BAKER MADE AWARE
[2025-04-09 11:41] LABS: Basophils # (Auto) 0.1 Thou/mm3 (0.0-0.2); Basophils % (Auto) 1 % (0-2.5); Eosinophils # (Auto) 0.0 Thou/mm3 (0.0-0.5); Eosinophils % (Auto) 0 % (0-10); Hematocrit 27.1 % (36.0-46.0); Immature Granulocytes Auto 0.02 Thou/mm3 (0.00-0.00); Lymphocytes # (Auto) 0.8 Thou/mm3 (1.0-4.8); Lymphocytes % (Auto) 11 % (10-50); Mean Corpuscular HGB Conc 31.7 g/dl (31.0-37.0); Mean Corpuscular Hemoglobin 27.6 pg (25.0-35.0); Mean Corpuscular Volume 87 fL (80-100); Monocytes # (Auto) 0.5 Thou/mm3 (0.0-0.8); Monocytes % (Auto) 6 % (0-12); Neutrophils # (Auto) 6.5 Thou/mm3 (1.8-7.7); Neutrophils % (Auto) 82 % (37-80); Nucleated Red Blood Cell # 0.00 Thou/mm3 (0.00-0.00); Nucleated Red Blood Cell % 0 /100 WBC (0); Platelet Count 321 Thou/mm3 (140-440); RDW Standard Deviation 51.1 fL (36.4-46.3); Red Blood Count 3.12 Miln/mm3 (4.00-5.20); White Blood Count 7.9 Thou/mm3 (3.6-11.0)
[2025-04-09 11:45] LABS: Hemoglobin 8.6 g/dL (12.0-16.0)
[2025-04-09 11:55] LABS: Alanine Aminotransferase 18 U/L (10-49); Albumin, Serum 2.9 gm/dL (3.4-4.8); Albumin/Globulin Ratio 1.2 (1.2-2.2); Alkaline Phosphatase 114 U/L (46-116); Anion Gap 9 (7-16); Aspartate Amino Transferase 27 U/L (0-34); BUN/Creatinine Ratio 25 Ratio (12-20); Bilirubin,Total 0.6 mg/dL (0.3-1.2); Blood Urea Nitrogen 30 mg/dL (9-23); Calcium 9.9 mg/dL (8.3-10.6); Calcium (Corrected) 10.8 mg/dL (8.5-10.1); Carbon Dioxide 24.0 mMol/L (20.0-31.0); Chloride 112 mMol/L (98-107); Creatinine (Component) 1.2 mg/dL (0.6-1.3); Estimated Creatinine Clearance 25.1 mL/min (>60); Globulin 2.5 gm/dL (2.3-3.5); Glucose 110 mg/dL (74-106); Osmolality,Calculated 295 (275-295); Potassium 4.2 mMol/L (3.4-5.1); Sodium 145 mMol/L (136-145); Total Protein 5.4 gm/dL (5.7-8.2); eGFR 45 See Note
--- NOTE | 2025-04-09 13:20 | ESCONSULT_ITS ---
TAILOR APPRENTICE HPI Data of Consult Patient: new to practice Consult date: 04/09/25 Requesting Physician: Dr. Mansoor Jorge Primary Care Provider: Physician No Primary/Family Consult Narrative Reason for consult: vaginal bleeding History of present illness: The patient is an 85-year-old female brought to the ER from a shelter for perineal bleeding. She has a history of rectal bleeding. She had an ultrasound as part of her workup revealing a vascular mass approximately 5 cm in the uterus. The ultrasound could not determine a uterine stripe. Patient is not answering questions appropriately so I am unsure when she last had a Pap smear or pelvic exam. I am consulted to discuss further management. Upon meeting with the patient she is awake but she is not oriented to place or time. She mumbles answers but I cannot tell what she is saying. She did not answer any questions about whether she has children and about her past gynecological or obstetrical history. She nodded when I asked if I coould look at her perineum. Her hemoglobin is low at approximately 7.4 so she has received a unit blood. cc:: cc: Meds Home Medications and Allergies Home Medications ?Medication ?Instructions ?Recorded ?Confirmed ?Type ferrous sulfate 325 mg (65 mg 325 mg feeding tube QDAY 03/24/25 03/24/25 History iron) tablet (Gil-Time) Allergies Allergy/AdvReac Type Severity Reaction Status Date / Time No Known Allergies Allergy Verified 03/24/25 08:45 Exam - TAILOR APPRENTICE Vital Signs Temp Pulse Resp BP Pulse Ox O2 Del Method 97.3 F 92 19 95/42 L 98 Room Air 04/09/25 12:55 04/09/25 12:55 04/09/25 12:55 04/09/25 12:55 04/09/25 12:55 04/09/25 12:55 Constitutional Constitutional: no acute distress, thin and chronically ill appearing Comments: Patient is an 85-year-old female appears older than stated age. She is awake and alert but seems confused and does not answer questions appropriately. I would not feel comfortable performing a speculum exam on the patient as she cannot consent. Routine Exam Perineal: Present erythema, induration and tenderness Comments: The patient has a red erythematous tender tissue around her buttocks and perineum suggestive of possible yeast cellulitis. There is a foul brown discharge present in her diaper. She has a Renteria catheter in place. Remainder of exam deferred at this time. TAILOR APPRENTICE - Results Labs 04/09/25 11:28 04/09/25 11:28 Labs: Short CBC 04/09/25 04/09/25 Range/Units 01:10 11:28 WBC 10.5 D 7.9 (3.6-11.0) Thou/mm3 Hgb 7.4 L D 8.6 L (12.0-16.0) g/dL Hct 24.3 L 27.1 L (36.0-46.0) % Plt Count 393 321 D (140-440) Thou/mm3 BMP 04/08/25 04/09/25 04/09/25 23:35 01:10 11:28 Sodium 142 142 145 Potassium 6.0 H 5.8 H 4.2 D Chloride 105 108 H 112 H Carbon Dioxide 25.8 24.2 24.0 BUN 33 H 30 H 30 H Creatinine 1.3 D 1.4 H 1.2 Glucose 110 H 109 H 110 H Calcium 9.8 9.2 9.9 Cardiac Enzymes 04/09/25 Range/Units 01:10 Troponin I < 0.020 (0.0-0.045) ng/mL Liver Function 04/08/25 04/09/25 Range/Units 23:35 11:28 Total Bilirubin 0.7 0.6 (0.3-1.2) mg/dL AST 26 27 (0-34) U/L ALT 21 18 (10-49) U/L Alkaline Phosphatase 142 H 114 D (46-116) U/L Albumin 3.4 2.9 L D (3.4-4.8) gm/dL Urine 04/08/25 Range/Units 23:45 Urine Color Yellow (Lt Yel-Yel) Urine Clarity Turbid A (Clear/Hazy) Urine pH 7.5 H (5.0-7.0) Ur Specific Milburn 1.015 (1.001-1.035) Urine Protein 1+ A (Neg - Trace) Urine Glucose (UA) Negative (Negative) Assessment and Plan Assessment and plan (1) Abnormal vaginal bleeding: Status: Acute Assessment and plan: The patient has a 5 centimeter fibroid in her uterus. The main images are not clear. The uterine lining could not be measured. The fibroid could be causing vaginal bleeding. Or, the patient could have a cervical or uterine cancer. Unfortunately, the patient is unable to consent for any type of the exam today. In order to biopsy the uterus and examine her cervix, she would have to have an exam under anesthesia. The patient is unfortunately not a surgical candidate secondary to multiple medical problems. Would recommend Megace to stabilize her uterine lining. (2) GI bleed: Status: Acute Assessment and plan: According to his CT scan from 04/03 and 04/08, patient has a distended rectosigmoid with some type of mass. She could have a rectal cancer. This would have to be discussed with the GI team. Again, she does not seem like a surgical candidate. (3) Diaper rash: Status: Acute Assessment and plan: Would recommend oral Diflucan once a week and twice daily hydrocortisone cream and jock itch powder. (4) Rectal ulcer: Status: Acute Assessment and plan: Per notes, patient has a rectal ulcer. (5) Failure to thrive: Status: Acute Assessment and plan: The patient has a G-tube. She has dementia. The patient is unable to consent for procedures at this time. Would recommend a discussion with the family at about hospice or palliative care. Would recommend they discuss DNR. At this point , will recommend no further gynecology recommendations besides Megace and treating her perineum for yeast/skin break down. Discussed in detail with the emergency room physician, Dr. Jorge
--- NOTE | 2025-04-09 13:54 | PC.CC ---
Addendum entered by Saima Neville 04/09/25 14:12: [id number] contacted Jefferson Thao via phone call and explained the situation with the hospice care out of pocket fee vs. appying for medi-yvon for the pt which will cover the hospice care fees while at [facility]. Pts spouse fully understood and stated he cannot pay the out of pocket expense for hospice care, so he agreed to work with [facility] licensed social worker to get the medi-yvon process started. Assigned RN is aware as well as ER provider. Original Note: PHILIP Neville was informed by ER provider that pt will need hospice care at [facility], as the pts spouse request. However, after ASW spoke with [facility] Tran, she stated that the pt does not have medi-yvon and medi-yvon would be the coverage pt will need to cover the hospice fee while at [facility]. Tran explained that the pt can still pay out of pocket for the next 12 days, but it will be a cost of $4,200.00 for the stay at [facility] and Hospice combined. Tran stated that the pt can return without hospice care and their licensed social worker can assist with applying for medi-yvon once the pt returns. Therefore, the options are: return to [facility], with hospice care, but it will be an out of pocket expense of $4,200.00 or Option 2: Return to [facility] without Hospice care and their in-house licensed social worker will assist the pt and family with applying for medi-yvon and if approved, they will follow through with hospice care for the pt. The abbott factor is that Medi-yvon is the only coverage that will pay fully for hospice care.
--- NOTE | 2025-04-09 15:19 | PC.CC ---
1519-p/u eta 1930 or sooner. Tranporation arranged via [facility] to [facility]
--- NOTE | 2025-04-09 16:43 | PC.NURSE ---
I CALLED [facility] TO GIVE NURSE TO NURSE REPORT ON THIS PT, BUT I WAS UNABLE TO GET AHOLD OF ANYONE DUE TO NO ONE ANSWERING THE PHONE AT [facility]. I WAS ALSO NOT ABLE TO LEAVE A VOICEMAIL.
== END 2025-04-09 19:15 | disposition skilled nursing facility (03) ==
PROVIDERS: Emergency Medicine; Emergency Provider Family Medicine
DX: D62 Acute posthemorrhagic anemia (principal); K92.2 Gastrointestinal hemorrhage, unspecified; N93.9 Abnormal uterine and vaginal bleeding, unspecified; N39.0 Urinary tract infection, site not specified; N17.9 Acute kidney failure, unspecified; E87.5 Hyperkalemia; L22 Diaper dermatitis; R00.0 Tachycardia, unspecified
CPT/HCPCS: 51702; 36415; 36430; 74177; 80048; 80053; 81001; 83605; 83735; 84100; 84145; 84484; 85025; 85610; 85730; 86850; 86900; 86901; 86923; 87077; 87086; 87186; 93005; 94644; 96361; 96365; 96375; 96376; 99285; A4314; A4649; J0696; J1815; J2470; J7030; J7050; P9016; Q9967; A9270; J7609

== ENCOUNTER 2025-04-11 03:06 | Emergency (ER) | payer MEDICARE, BC, SELFPAY ==
--- NOTE | 2025-04-11 03:18 | EDNOTE_ITS ---
ED General RME/HPI General Chief complaint: General Adult/Misc Complain Stated complaint: G TUBE REPLACEMENT Time Seen by Provider: 04/11/25 03:10 Arrival date/time: 04/11/25 03:06 RME / HPI RME / HPI narrative: 85-year-old female with past medical history of dementia, failure to thrive status post PEG tube placement, colon polyp/adenoma, diverticulosis, atrial fibrillation, esophagitis, gastritis and anemia who presented to [facility] emergency department from [facility] on 04/11/2025 with a chief complaint of PEG tube dislodgment. Patient's PEG tube was dislodged earlier today, does have dementia. No other concerns currently. Related Data Home Medications ?Medication ?Instructions ?Recorded ?Confirmed ferrous sulfate 325 mg (65 mg 325 mg feeding tube QDAY 03/24/25 03/24/25 iron) tablet (Gil-Time) Previous Rx's ?Medication ?Instructions ?Recorded multivitamin 1 tab feeding tube QDAY #30 tabs 03/08/25 hydrocortisone 100 mg/60 mL enema 100 mg (60 mL) AL DA STELLA 30 days 03/31/25 #1,800 mL midodrine 5 mg tablet 5 mg PO TID PRN SBP <95 30 d ays 03/31/25 #90 tabs pantoprazole 40 mg tablet,delayed 40 mg PO QDAY 30 day s #30 tabs 03/31/25 release amoxicillin 500 mg-potassium 1 tab PO TID #20 tabs clavulanate 125 mg tablet (Augmentin) megestrol 400 mg/10 mL (40 mg/mL) 50 mg (1.25 mL) PO T ID VAGINAL 04/09/25 oral suspension BLEEDING #480 mL Allergies Allergy/AdvReac Type Severity Reaction Status Date / Time No Known Allergies Allergy Verified 04/11/25 03:33 Review of Systems Review of Systems ROS Unobtainable: unobtainable due to mental status Past Medical History Past Medical History NEUROLOGIC: Positive Dementia and Alzheimer's Disease CARDIAC: Positive Cardiac Disorders, Atrial Fibrillation, Hypercholesterolemia and Hypertension RESPIRATORY: Positive Pneumonia GASTROINTESTINAL: Positive Gastrointestinal Disorders, Gastrointestinal Bleed, Colitis, Colorectal Cancer and Gastroesophageal Reflux Disease REPRODUCTIVE: Positive Previous Pregnancies MUSCULOSKELETAL: Positive Musculoskeletal Disorders, Arthritis and Carpal Tunnel Syndrome ENT: Positive Cataracts PSYCHO/SOCIAL: Positive Depression and Anxiety OTHER HISTORY: Positive Hospitalization, Falls, Chicken Pox, Measles, Mumps, Cancer and Colorectal Cancer Surgical History SURGICAL: Positive Eye Surgery, Tonsillectomy, Abdominal Surgery, Gastrostomy, Bowel Surgery, Lumpectomy (R BREAST) and Hysterectomy Social History SMOKING STATUS: Unknown if ever smoked SECOND HAND EXPOSURE: No SUBSTANCE USE: does not use ED Exam Narrative Physical exam: Physical Exam General: Awake and in moderate acute distress. HEENT: Normocephalic, atraumatic, mucous membranes moist. Heart: Sinus Tachycardia, no murmurs. Lungs: Clear to auscultation with no wheezing or crackles. Abdomen: Soft, nondistended, nontender, positive bowel sounds. PEG Tube orifice noted.?No guarding or rebound tenderness. Neurologic: Alert and oriented x0, incomprehensible sounds, GCS 9, no gross neurological deficit, and patient able to move all 4 extremities. Extremities: No edema. Skin: Diaper dermatitis rash Course Quality Measures none Orders Category Date Time Status XR abdomen 1V Stat Exams 04/11/25 04:02 Taken Vital Signs Vital signs: Vital Signs Temperature 98.4 F 04/11/25 03:42 Pulse Rate 115 H 04/11/25 03:42 Respiratory Rate 18 04/11/25 03:42 Blood Pressure 110/63 04/11/25 03:42 Pulse Oximetry (%) 100 04/11/25 03:42 Oxygen Delivery Method Room Air 04/11/25 03:42 PROCEDURES: Feeding Tube Replacement Type of Tube: G-J Tube Insertion Site Prior to Procedure: clean Tube Used for Reinsertion: other (G-tube) Cypriot Tube Size (F): 20 Balloon size (mL): 10 Verification of Placement: gastrografin injection Tube Secured by: tape/dressing Patient Tolerated Procedure: well and no complications Additional Comments: Performed under the supervision of ER physician Dr. Dotson Discharge Plan Plan Patient Disposition: Xfer Skilled Nsg Fac (SNF) Patient condition on transfer: Stable Prescriptions/Referrals Prescriptions/Med Rec: No Action ferrous sulfate [Gil-Time] 325 mg (65 mg iron) tablet 325 mg feeding tube QDAY midodrine 5 mg Tablet 5 mg PO TID PRN (Reason: SBP <95) 30 Days Qty: 90 0RF hydrocortisone 100 mg/60 mL Enema 100 mg AL DAILY 30 Days Qty: 1800 0RF pantoprazole 40 mg tablet,delayed release (DR/EC) 40 mg PO QDAY 30 Days Qty: 30 0RF megestrol 400 mg/10 mL (40 mg/mL) suspension 50 mg PO TID MDD 3.75 ML Qty: 480 0RF multivitamin Tablet 1 tab feeding tube QDAY Qty: 30 0RF amoxicillin-pot clavulanate [Augmentin] 500-125 mg tablet 1 tab PO TID Qty: 20 0RF Problem List Clinical Impression: Malfunction of percutaneous endoscopic gastrostomy (PEG) tube Patient/Caregiver Discharge Instructions Discharge Activity: other Additional Instructions: - You were seen in the emergency department today for PEG tube dislodgment, PEG tube replaced confirmed with KUB with contrast, your PEG tube is in good position and can be used. - Continue all home medications, follow-up with primary care physician in 1 week - Return to ED if your symptoms worsen Print Language: Latvian Stand Alone Forms: WhatsApp Award Info., Patient Portal Info Letter MDM Narrative MDM hospital course (for use when minimal MDM required): #PEG tube dislodgment #Status post PEG tube insertion 04/11 85-year-old female with past medical history as above presented with PEG tube dislodgment. PEG tube inserted at bedside Gastrografin injected, KUB reviewed Gastrografin noted. PEG tube in place, dressing applied by nursing. Patient stable to be discharged to [facility]. Case discussed with Attending Physician Dr. Nila Rodgers MD Internal Medicine PGY-2 Disclaimer: This note was dictated by speech recognition. Minor errors in net developer architect may be present due to voice recognition software. Clinical Information Provided by: EMS Medical Records reviewed [facility] Meds/Rx considered, not ordered None Labs/Rad/Tests considered, not ordered None Imaging Imaging interpretation: interpreted by me Imaging Interpretation(s): KUB post gastrograffin: Contrast noted, PEG tube in place. Medication Administration(s) none Diagnosis Differential Diagnosis ED Complaint MDM: PEG Tube Replacement
[2025-04-11 03:34] VITALS: PULSE 84; RESP 18; O2SAT 92; BMI 17.4
[2025-04-11 03:42] VITALS: BP 110/63; PULSE 115; RESP 18; TEMP 36.9; O2SAT 100
--- NOTE | 2025-04-11 04:02 | XR_ITS ---
Examination: Abdomen AP single view Technique: AP portable supine abdomen, single view Exam date and time: April 11, 2025, 0415 hrs. Indications: Unknown position gastrostomy tube Findings: Opacified gastrostomy tube in stomach satisfactory position, no abnormal contrast extravasation Impression: Gastrostomy tube in the stomach satisfactory position
--- NOTE | 2025-04-11 04:42 | PC.NURSE ---
THIS RN CLEANED PT AFTER A BOWEL MOVEMENT
--- NOTE | 2025-04-11 06:21 | ESOP_ITS ---
PROCEDURES: Procedure Date / Time 04/11/25 0621 Feeding Tube Replacement Informed consent obtained: implied Time out done, and the following verified: correct patient, side and site, procedure, patient position and implants and/or equipment Type of tube: G-J Tube Insertion site prior to procedure: clean Tube used for reinsertion: Bard Montserratian Tube Size (F): 20 Balloon size (mL): 10 Verification of placement: gastrografin injection Tube secured by: tape/dressing Patient tolerated procedure: well and no complications EBL(ml): 0 Additional comments: Procedure performed under the supervision of ED attending Dr. Nila Rodgers MD Internal Medicine PGY-2 Disclaimer: This note was dictated by speech recognition. Minor errors in staffing and scheduling coordinator may be present due to voice recognition software.
== END 2025-04-11 05:50 | disposition skilled nursing facility (03) ==
LOC: SERX 05:14
PROVIDERS: Emergency Provider Emergency Medicine; PCP Family Medicine
DX: K94.23 Gastrostomy malfunction (principal); Y83.2 Surgical operation with anastomosis, bypass or graft as the cause of abnormal reaction of the patient, or of later complication, without mention of misadventure at the time of the procedure
CPT/HCPCS: 43762; 74018; 99283; A4649

== ENCOUNTER 2025-04-22 20:57 | Emergency (ER) | payer MEDICARE, BC, SELFPAY ==
[2025-04-22 21:01] VITALS: BP 97/53; PULSE 100; RESP 18; TEMP 36.6; O2SAT 96
[2025-04-22 21:02] VITALS: PULSE 102; RESP 18; O2SAT 98; BMI 17.5
--- NOTE | 2025-04-22 21:17 | EDNOTE_ITS ---
<Statement entered by Bernadette Harris MD - 04/23/25 05:37> As co-signing physician, I was present and available for consult prn. I concur with the plan and care as documented by the midlevel provider. I Dr. Mancilla saw the patient with the resident. I reviewed the history and physical exam, was involved directly with the manage decision making for this patient. Agree with the note and patient is safe for discharge. ED General RME/HPI General Chief complaint: Vaginal Bleeding Stated complaint: VAGINAL BLEED Time Seen by Provider: 04/22/25 21:16 Arrival date/time: 04/22/25 20:57 RME / HPI RME / HPI narrative: 85 y/o female with PMHx colitis, glaucoma, depression, dementia, chronic pelvic pain syndrome who comes in for an evaluation of vaginal bleeding. Patient was taken to the emergency room from the shelter for further evaluation of vaginal bleeding. This is a chronic known problem for her. History is limited at this time as patient is poor historian with dementia. Related Data Home Medications ?Medication ?Instructions ?Recorded ?Confirmed ferrous sulfate 325 mg (65 mg 325 mg feeding tube QDAY 03/24/25 03/24/25 iron) tablet (Gil-Time) Previous Rx's ?Medication ?Instructions ?Recorded multivitamin 1 tab feeding tube QDAY #30 tabs 03/08/25 hydrocortisone 100 mg/60 mL enema 100 mg (60 mL) CO DA STELLA 30 days 03/31/25 #1,800 mL midodrine 5 mg tablet 5 mg PO TID PRN SBP <95 30 d ays 03/31/25 #90 tabs pantoprazole 40 mg tablet,delayed 40 mg PO QDAY 30 day s #30 tabs 03/31/25 release amoxicillin 500 mg-potassium 1 tab PO TID #20 tabs clavulanate 125 mg tablet (Augmentin) megestrol 400 mg/10 mL (40 mg/mL) 50 mg (1.25 mL) PO T ID VAGINAL 04/09/25 oral suspension BLEEDING #480 mL Allergies Allergy/AdvReac Type Severity Reaction Status Date / Time No Known Allergies Allergy Verified 04/11/25 03:33 Review of Systems Review of Systems ROS Unobtainable: unobtainable due to mental status Narrative Review of Systems: ROS limited at this time as patient is poor historian. Past Medical History Past Medical History NEUROLOGIC: Positive Dementia and Alzheimer's Disease CARDIAC: Positive Cardiac Disorders, Atrial Fibrillation, Hypercholesterolemia and Hypertension RESPIRATORY: Positive Pneumonia GASTROINTESTINAL: Positive Gastrointestinal Disorders, Gastrointestinal Bleed, Colitis, Colorectal Cancer and Gastroesophageal Reflux Disease REPRODUCTIVE: Positive Previous Pregnancies MUSCULOSKELETAL: Positive Musculoskeletal Disorders, Arthritis and Carpal Tunnel Syndrome ENT: Positive Cataracts PSYCHO/SOCIAL: Positive Depression and Anxiety OTHER HISTORY: Positive Hospitalization, Falls, Chicken Pox, Measles, Mumps, Cancer and Colorectal Cancer Surgical History SURGICAL: Positive Eye Surgery, Tonsillectomy, Abdominal Surgery, Gastrostomy, Bowel Surgery, Lumpectomy (R BREAST) and Hysterectomy Social History SMOKING STATUS: Unknown if ever smoked SECOND HAND EXPOSURE: No SUBSTANCE USE: does not use ED Exam Narrative Physical exam: General: AAOx1, anorexic, frail, elderly woman HEENT: Dry mucous membranes, conjunctiva clear, EOMI, PERRLA, Cardiovascular: S1, S2, radial pulses +2 bilat, RRR Pulmonary: CTAB bilat no cough, no wheezing GI: No tenderness to light or deep palpitation, no guarding, rigidity, rebound tenderness or distension, negative JANEL exam : Fortino bleeding from vaginal exam Extremities: No presence of trace or pitting edema in lower extremities bilaterally, dorsalis pedis pulses +2 bilaterally Neuro: AAOx4, limited neuro exam Course Quality Measures none Orders Category Date Time Status IV [Insert IV] NOW Care 04/22/25 21:19 Completed Straight [In and Out Catheter] X1 Care 04/22/25 21:24 Completed CBC Stat Lab 04/22/25 22:35 Completed CMP [Comprehensive Metabolic Panel] Stat Lab 04/22/25 22:35 Completed Lactate (Lactic Acid) Stat Lab 04/22/25 22:35 Completed PT [Prothrombin Time with INR] Stat Lab 04/22/25 22:35 Completed PTT [Partial Thromboplastin Time] Stat Lab 04/22/25 22:35 Completed Troponin I Stat Lab 04/22/25 22:35 Completed Urinalysis, C/S if Indicated Stat Lab 04/22/25 22:24 Completed Urine Culture Stat Lab 04/22/25 22:24 Received Pantoprazole Inj [Protonix Inj] Med 04/23/25 00:13 Discontinued 40 mg IVP X1 ONE Sodium Chloride 0.9% 500 ml [Ns] 500 ml Med 04/23/25 00:24 Discontinued IV 999 mls/hr Vital Signs Vital signs: Vital Signs Temperature 97.8 F 04/22/25 21:01 Pulse Rate 100 04/22/25 21:01 Respiratory Rate 18 04/22/25 21:01 Blood Pressure 97/53 L 04/22/25 21:01 Pulse Oximetry (%) 96 04/22/25 21:01 Oxygen Delivery Method Room Air 04/22/25 21:01 PROCEDURES: Feeding Tube Replacement Type of Tube: G-J Tube Insertion Site Prior to Procedure: clean Tube Used for Reinsertion: other (G-tube) Anguillan Tube Size (F): 20 Balloon size (mL): 10 Verification of Placement: gastrografin injection Tube Secured by: tape/dressing Patient Tolerated Procedure: well and no complications Additional Comments: Performed under the supervision of ER physician Dr. Dotson Discharge Plan Plan Patient Disposition: Xfer Skilled Nsg Fac (SNF) Prescriptions/Referrals Prescriptions/Med Rec: No Action ferrous sulfate [Gil-Time] 325 mg (65 mg iron) tablet 325 mg feeding tube QDAY midodrine 5 mg Tablet 5 mg PO TID PRN (Reason: SBP <95) 30 Days Qty: 90 0RF hydrocortisone 100 mg/60 mL Enema 100 mg CO DAILY 30 Days Qty: 1800 0RF pantoprazole 40 mg tablet,delayed release (DR/EC) 40 mg PO QDAY 30 Days Qty: 30 0RF megestrol 400 mg/10 mL (40 mg/mL) suspension 50 mg PO TID MDD 3.75 ML Qty: 480 0RF multivitamin Tablet 1 tab feeding tube QDAY Qty: 30 0RF amoxicillin-pot clavulanate [Augmentin] 500-125 mg tablet 1 tab PO TID Qty: 20 0RF Referrals: No Primary/Family,Physician [Primary Care Provider] - In 1 week Problem List Clinical Impression: Vaginal bleeding Patient/Caregiver Discharge Instructions Discharge Activity: activity as tolerated Additional Instructions: Discharge instructions Follow-up with your PCP within 1 week Take your medicines as prescribed Avoid any NSAIDs including Motrin, Aleeve Return to ED if your symptoms worsen or return Print Language: Ukrainian Stand Alone Forms: Shara Award Info., Patient Portal Info Letter Attestation Attestation By Dr. Mancilla discuss this case with the resident. I was present for the history and physical exam, involved in the management of this patient, reviewed the note and agree. MDM Narrative [facility] hospital course (for use when minimal MDM required): 2116: Labs ordered, JANEL exam performed which is unremarkable, physical exam shows persistent vaginal bleeding and patient was cleaned. 0020: Hemoglobin level of 9.2, other labs within normal limits, however urinalysis shows +2 blood and 44 red blood cells, however this is chronic. Will repeat vital check with blood pressure to further evaluate if patient is stable for discharge. Will administer fluid bolus 0214: Pt's BP remains to be stable in addition to heart rate. Patient is not requiring blood transfusion at this time and patient's blood pressure improved with fluid bolus. Patient medically cleared for discharge at this time. Clinical Information Provided by: EMS Medical Records reviewed [facility] Medical Records additional comments: 85-year-old female with acute on chronic history of vaginal and rectal bleeding presenting with possible bleeding from facility. Patient in the emergency department is noted to have some blood on exam however is unable to tell if it is the rectum or the vagina area. Repeat vitals while the patient is Emergency Department is 114/49 with a heart rate of 110. Patient has normal then better baseline hemoglobin at this time I do not believe that the patient needs a blood transfusion. Meds/Rx considered, not ordered None Labs/Rad/Tests considered, not ordered None Imaging Imaging interpretation: interpreted by me Medication Administration(s) none Medication Administration History Discontinued Medications Sodium Chloride (Ns) 500 mls @ 999 mls/hr IV .Q31M ONE Stop: 04/23/25 00:54 Last Infusion: 04/23/25 01:00 Dose: Infused Documented By: Admin: 04/23/25 00:29 Dose: 999 mls/hr Documented By: CHRISTINA Pantoprazole Sodium (Pantoprazole Inj 40 Mg Vial) 40 mg IVP X1 ONE Stop: 04/23/25 00:14 Last Admin: 04/23/25 00:25 Dose: 40 mg Documented By: CHRISTINA Diagnosis Diagnoses ruled out and/or further discussions: Vaginal Bleeding, GI bleed
[2025-04-22 22:28] LABS: Collection Type, Urine Catheter; Squamous Epithelial Cell,Urine 0 /hpf (0-5)
[2025-04-22 22:41] LABS: Lactate (Lactic Acid) 1.9 mMol/L (0.4-2.0)
[2025-04-22 22:47] LABS: Amorphous Crystals,Urine Present (Absent); Bacteria,Urine 1+; Bilirubin,Urine Negative (Negative); Blood,Urine 2+ (Negative); Calcium Oxalate Crystals,Urine 1+; Clarity,Urine Turbid (Clear/Hazy); Color,Urine Yellow (Lt Yel-Yel); Glucose, Urine Negative (Negative); Ketones,Urine Negative (Negative); Leukocyte Esterase,Urine Positive (Negative); Nitrite,Urine Positive (Negative); PH,Urine 8.0 (5.0-7.0); Protein,Urine 1+ (Neg - Trace); RBC,Urine 44 /hpf (0-3); Specific Gravity,Urine 1.017 (1.001-1.035); Urobilinogen,Urine Negative mg/dL (0.0-1.0); WBC,Urine 10 /hpf (0-5)
[2025-04-22 22:48] LABS: Basophils # (Auto) 0.0 Thou/mm3 (0.0-0.2); Basophils % (Auto) 0 % (0-2.5); Eosinophils # (Auto) 0.1 Thou/mm3 (0.0-0.5); Eosinophils % (Auto) 1 % (0-10); Hematocrit 30.7 % (36.0-46.0); Hemoglobin 9.2 g/dL (12.0-16.0); Immature Granulocytes Auto 0.06 Thou/mm3 (0.00-0.00); Lymphocytes # (Auto) 1.3 Thou/mm3 (1.0-4.8); Lymphocytes % (Auto) 13 % (10-50); Mean Corpuscular HGB Conc 30.0 g/dl (31.0-37.0); Mean Corpuscular Hemoglobin 27.8 pg (25.0-35.0); Mean Corpuscular Volume 93 fL (80-100); Monocytes # (Auto) 0.5 Thou/mm3 (0.0-0.8); Monocytes % (Auto) 5 % (0-12); Neutrophils # (Auto) 8.2 Thou/mm3 (1.8-7.7); Neutrophils % (Auto) 81 % (37-80); Nucleated Red Blood Cell # 0.00 Thou/mm3 (0.00-0.00); Nucleated Red Blood Cell % 0 /100 WBC (0); Platelet Count 497 Thou/mm3 (140-440); RDW Standard Deviation 67.7 fL (36.4-46.3); Red Blood Count 3.31 Miln/mm3 (4.00-5.20); White Blood Count 10.1 Thou/mm3 (3.6-11.0)
[2025-04-22 23:15] LABS: Culture Indicated,Urine Yes
[2025-04-22 23:31] LABS: INR 1.0 (0.9-1.3); Partial Thromboplastin Time 24.9 Seconds (22.0-36.0); Prothrombin Time 10.3 Seconds (9.0-12.2)
[2025-04-22 23:36] LABS: Alanine Aminotransferase 20 U/L (10-49); Albumin, Serum 3.8 gm/dL (3.4-4.8); Albumin/Globulin Ratio 1.2 (1.2-2.2); Alkaline Phosphatase 113 U/L (46-116); Anion Gap 10 (7-16); Aspartate Amino Transferase 20 U/L (0-34); BUN/Creatinine Ratio 37 Ratio (12-20); Bilirubin,Total 0.2 mg/dL (0.3-1.2); Blood Urea Nitrogen 37 mg/dL (9-23); Calcium 10.3 mg/dL (8.3-10.6); Calcium (Corrected) 10.5 mg/dL (8.5-10.1); Carbon Dioxide 24.6 mMol/L (20.0-31.0); Chloride 108 mMol/L (98-107); Creatinine (Component) 1.0 mg/dL (0.6-1.3); Estimated Creatinine Clearance 30.6 mL/min (>60); Globulin 3.1 gm/dL (2.3-3.5); Glucose 90 mg/dL (74-106); Osmolality,Calculated 293 (275-295); Potassium 4.8 mMol/L (3.4-5.1); Sodium 143 mMol/L (136-145); Total Protein 6.9 gm/dL (5.7-8.2); Troponin I < 0.020 ng/mL (0.0-0.045); eGFR 56 See Note
[2025-04-23 00:20] VITALS: BP 114/79; PULSE 110; RESP 20; O2SAT 98
[2025-04-23] MEDS: SODIUM CHLORIDE 0.9% 500 ML 500 ML 999 ML IV (00:29)
[2025-04-23 01:51] VITALS: BP 103/83; PULSE 98; RESP 19; TEMP 36.7; O2SAT 100
[2025-04-23 02:52] VITALS: BP 113/62; PULSE 104; RESP 18; TEMP 36.9; O2SAT 98
== END 2025-04-23 03:03 | disposition skilled nursing facility (03) ==
PROVIDERS: Emergency Provider Emergency Medicine
DX: N93.9 Abnormal uterine and vaginal bleeding, unspecified (principal)
CPT/HCPCS: 36415; 80053; 81001; 83605; 84484; 85025; 85610; 85730; 87077; 87086; 87186; 96361; 96374; 99284; J2470; J7999

== ENCOUNTER 2025-05-25 22:32 | Inpatient (IN) | payer MEDICARE, BC, SELFPAY ==
[2025-05-25 22:37] VITALS: PULSE 130; O2SAT 99; BMI 15.3
[2025-05-25 22:41] VITALS: BP 76/39; PULSE 145; RESP 20; TEMP 38.4; O2SAT 96
--- NOTE | 2025-05-25 22:42 | EKG_ITS ---
[facility] Test Date: 2025-05-25 Pat Name: MELLY SMILEY Department: Room: - Gender: Female [employer] Operator: : 1940 Requested By: Migue Santiago Order Number: [id number] Reading MD: Migue Santiago Measurements Intervals [place] Rate: 145 P: 77 DC: 145 QRS: 14 QRSD: 63 T: 66 QT: 331 QTc: 515 Interpretive Statements SINUS TACHYCARDIA, POSSIBLE ATRIAL FLUTTER LOW QRS VOLTAGE IN PRECORDIAL LEADS [QRS DEFLECTION < 1.0 mV IN CHEST LEADS] NONSPECIFIC T-WAVE ABNORMALITY ABNORMAL RHYTHM ECG Compared to ECG 04/08/2025 23:30:10 T-wave abnormality now present ST (T wave) deviation no longer present /store/S0/[id number]/ecg/[id number].pdf
--- NOTE | 2025-05-25 22:42 | XR_ITS ---
EXAMINATION: AP chest single view TECHNIQUE: AP portable supine chest single view Date and time: May 25, 2025, 1131 hours INDICATIONS: Sepsis alert today. FINDINGS: Bilateral perihilar right upper lobe pneumonia Mild enlargement cardiac contour Prominent osteopenia IMPRESSION: Bilateral perihilar right upper lobe pneumonia
--- NOTE | 2025-05-25 22:44 | PD.EDAMS ---
Altered Mental Status RME/HPI General Chief Complaint: Altered Mental Status Stated Complaint: FEVER Time Seen by Provider: 05/25/25 22:40 Arrival date/time: 05/25/25 22:32 RME / HPI RME / HPI narrative: Dr. Garnett?s Main ED Evaluation: 85yo female with a history of dementia, failure to thrive status post PEG tube placement, colon polyp/adenoma, aFib, anemia BIBA from [facility] presents to the ED for a chief complaint of increased RR. Per EMS, SNF staff were unable to take the patient's vitals on scene. With EMS, patient's HR was in the 130s. EMS notes patient's blood pressure was initially 116/70 but dropped to the 80s. O2 is 99% on room air. Full ROS is unobtainable due to the patient's baseline dementia. Of note, patient is a full code. Related Data Home Medications ?Medication ?Instructions ?Recorded ?Confirmed ferrous sulfate 325 mg (65 mg 325 mg feeding tube QDAY 03/24/25 03/24/25 iron) tablet (Gil-Time) Previous Rx's ?Medication ?Instructions ?Recorded multivitamin 1 tab feeding tube QDAY #30 tabs 03/08/25 amoxicillin 500 mg-potassium 1 tab PO TID #20 tabs 04/03/25 clavulanate 125 mg tablet (Augmentin) megestrol 400 mg/10 mL (40 mg/mL) 50 mg (1.25 mL) PO TID VAGINAL 04/09/25 oral suspension BLEEDING #480 mL Allergies Allergy/AdvReac Type Severity Reaction Status Date / Time No Known Allergies Allergy Verified 04/11/25 03:33 Review of Systems Review of Systems ROS Unobtainable: unobtainable due to medical condition ED Exam Narrative Physical exam: Generally patient is ill-appearing and emaciated and tachypneic with flexion contractures to upper and lower extremities, heart tachycardic rate regular rhythm, lungs show rhonchi bilaterally, abdomen is soft distended with G-tube in place, extremities show no edema with flexion contractures to bilateral upper and lower extremities, neurologic exam shows the patient to be nonverbal and not following commands which according to paramedics they were told this was baseline for her from her care facility Course Course Course Narrative: 223: Sepsis alert initiated. Orders made at this time are congruent with ED Adult Sepsis Order List. Re-evaluation is to be completed. CXR is ordered for determining the etiology of fever. 2347: LR IVF started. Sepsis re-evaluation is pending at the time of admission. Quality Measures Possible source: pulmonary and genitourinary Blood cultures ordered: yes Antibiotic ordered: Yes Pertinent labs: 05/25/25 22:58 Lactic Acid 5.1 H* mMol/L (0.4-2.0) sepsis Orders Category Date Time Status Bedside COVID-19 Antigen Test NOW Care 05/26/25 00:16 Active Bedside Influenza A&B Antigen Test NOW Care 05/26/25 00:16 Active EKG (ED ONLY) *Do not use* NOW Care 05/25/25 22:42 Completed EKG (ED Only) Stat Exams 05/25/25 22:42 Draft XR chest 1V portable Stat Exams 05/25/25 22:42 Completed BNP [B-Type Natriuretic Peptide] Stat Lab 05/25/25 22:58 Completed Blood Culture (Lab) Stat Lab 05/25/25 23:06 Received CBC Stat Lab 05/25/25 22:58 Completed CMP [Comprehensive Metabolic Panel] Stat Lab 05/25/25 22:58 Completed Lactic Acid [Lactate (Lactic Acid)] Stat Lab 05/25/25 22:58 Results TSH [Thyroid Stimulating Hormone] Stat Lab 05/25/25 22:58 Completed Troponin I Stat Lab 05/25/25 22:58 Completed UA [Urinalysis] Stat Lab 05/25/25 22:45 Completed Piper/Tazo Inj [Zosyn Inj] 4.5 gm Med 05/26/25 00:16 Ordered Sodium Chloride 0.9% (Pop) [NS 0.9% mini bag] 100 ml IV X1 Ringers Lactated 1000 ml [Lactated Ringers] 1,000 ml Med 05/25/25 23:41 Active IV 999 mls/hr Ringers Lactated 1000 ml [Lactated Ringers] 1,000 ml Med 05/26/25 00:14 Ordered IV 999 mls/hr Vancomycin Pharmacy to Dose Med 05/26/25 09:00 Ordered 1 each IV QDAY cefTRIAXone/D5w 1gm IV premix [Rocephin/D5w 1gm IV Med 05/25/25 22:56 Discontinued premix] 1 gm in 50 ml IV X1 Vital Signs Vital signs: Vital Signs Temperature 101.2 F H 05/25/25 22:41 Pulse Rate 145 H 05/25/25 22:41 Respiratory Rate 20 05/25/25 22:41 Blood Pressure 76/39 L 05/25/25 22:41 Pulse Oximetry (%) 96 05/25/25 22:41 Oxygen Delivery Method Room Air 05/25/25 22:41 Altered Mental Status MDM Narrative MDM Narrative:: Scribe Attestation: 05/25/25 - Analilia Low am scribing for and in the presence of Dr. Garnett. Patient has multiple SIRS criteria. The source of infection may be pulmonary. Urine came back infected. Chest x-ray was read as showing bilateral perihilar infiltrates with a right upper lobe pneumonia. Patient originally was given Rocephin 1 g IV but that antibiotic coverage was expanded due to the fact that the patient is from a senior living facility. Patient was given Zosyn 4.5 g IV and pharmacy dose vancomycin IV. EKG shows sinus tachycardia at a rate of 145 without ischemic change or ectopy. Patient arrived with systolic blood pressure in the 70s. Lactic acid level was 5.1. White count was 17,100. Patient was hydrated with 2 L of IV lactated Ringer's. After approximately 3 to 400 cc of fluid the patient's systolic blood pressure is approximately 100. Patient is a full code. I discussed this case with the hospitalist and the patient will require admission to the hospital for further treatment and evaluation for her septic shock not requiring pressors at this time secondary to pneumonia and UTI. COVID and flu swabs have been ordered. I interpreted all labs. Patient data External records reviewed:: [facility] previous records (Per chart review, patient was seen here on 04/22/25 for vaginal bleeding.) and EMS form Clinical information provided by:: EMS Social determinants that could affect healthcare access:: housing (SNF resident) Patient has the following chronic illnesses:: dementia, failure to thrive s/p PEG tube placement, colon polyp/adenoma, diverticulosis, atrial fibrillation, esophagitis, gastritis and anemia How is presenting disease/condition affected by chronic disease/condition?: uneffected by Evaluation data The following diagnostics were reviewed and interpreted by me:: lab results, radiology exam(s) and EKG tracing(s) Lab and/or radiology exams considered but not ordered:: none Interpretation Summary: [facility] Report Signed Patient: MELLY SMILEY. Record#: [id number] Birthdate: 1940 Age/Sex: 85 / F Location: [facility] Attending Dr: Ordering Physician: Migue Garnett DO Date of Service: 05/25/25 Procedure(s): XR chest 1V portable Accession Number(s): [id number] cc: Aries Lentz MD; Migue Garnett DO; Marleny Mistry MD~ EXAMINATION: AP chest single view TECHNIQUE: AP portable supine chest single view Date and time: May 25, 2025, 1131 hours INDICATIONS: Sepsis alert today. FINDINGS: Bilateral perihilar right upper lobe pneumonia Mild enlargement cardiac contour Prominent osteopenia IMPRESSION: Bilateral perihilar right upper lobe pneumonia Dictated By: Aries Lentz MD Signed By: <Electronically signed by Aries Lentz MD in OV> 05/25/25 5214 Medications / Prescriptions Medications or Prescriptions considered but not ordered:: none Medication administrations:: Medication Administration History Lactated Ringer's (Lactated Ringers) 1,000 mls @ 999 mls/hr IV .Q1H1M ONE Stop: 05/26/25 00:41 Last Admin: 05/25/25 23:49 Dose: 999 mls/hr Documented By: YVONNE Lactated Ringer's (Lactated Ringers) 1,000 mls @ 999 mls/hr IV .Q1H1M ONE Stop: 05/26/25 01:14 Piperacillin Sod/Tazobactam (Sod 4.5 gm/ Sodium Chloride) 100 mls @ 200 mls/hr IV X1 ONE; Protocol Stop: 05/26/25 00:45 Pharmacy Consult (Vancomycin Pharmacy To Dose 1 Each Each) 1 each IV QDAY [facility] Stop: 06/25/25 08:59 Discontinued Medications Ceftriaxone Sodium/Dextrose (Rocephin/D5w 1gm Iv Premix) 1 gm in 50 mls @ 100 mls/hr IV X1 ONE Stop: 05/25/25 23:25 Last Infusion: 05/25/25 23:49 Dose: Infused Documented By: Admin: 05/25/25 23:18 Dose: 100 mls/hr Documented By: MARIA DE JESUS see above Consultations Consultation(s) initiated? (list below): Yes Diagnosis Differential diagnosis altered mental status: other (See MDM) Most likely diagnosis given after review of the tests above:: see clinical impression below Admission Indicated Admission indicated?: indicated Admission Request Was there a request for admission?: Yes Admission Attestation Admission request attestation: Discussed case with [] from Hospitalist service regarding admission. Discussed patients ED course, exam findings, labs, and radiology results. The Hospitalist [agrees,declines] to accept the patient for admission. Disposition Plan Disposition Plan: Admit Critical Care Time Critical Care Time Critical Care Time: Yes Total Critical Care Time (min.): 35 Attestation: Excluding other billable procedures Discharge Plan Plan Patient Disposition: Admit Acute Care w/in Hospital Prescriptions/Referrals Prescriptions/Med Rec: No Action ferrous sulfate [Gil-Time] 325 mg (65 mg iron) tablet 325 mg feeding tube QDAY megestrol 400 mg/10 mL (40 mg/mL) suspension 50 mg PO TID MDD 3.75 ML Qty: 480 0RF multivitamin Tablet 1 tab feeding tube QDAY Qty: 30 0RF amoxicillin-pot clavulanate [Augmentin] 500-125 mg tablet 1 tab PO TID Qty: 20 0RF Referrals: Marleny Mistry MD [Primary Care Provider, Family Practice] - In 1 week Problem List Clinical Impression: Septic shock, Pneumonia, Acute UTI Patient/Caregiver Discharge Instructions Print Language: Urdu Stand Alone Forms: Shara Award Info., Patient Portal Info Letter
[2025-05-25 23:11] LABS: Lactate (Lactic Acid) 5.1 mMol/L (0.4-2.0)
[2025-05-25 23:13] LABS: Basophils # (Auto) 0.0 Thou/mm3 (0.0-0.2); Basophils % (Auto) 0 % (0-2.5); Eosinophils # (Auto) 0.0 Thou/mm3 (0.0-0.5); Eosinophils % (Auto) 0 % (0-10); Hematocrit 33.0 % (36.0-46.0); Hemoglobin 9.6 g/dL (12.0-16.0); Immature Granulocytes Auto 0.07 Thou/mm3 (0.00-0.00); Lymphocytes # (Auto) 0.6 Thou/mm3 (1.0-4.8); Lymphocytes % (Auto) 4 % (10-50); Mean Corpuscular HGB Conc 29.1 g/dl (31.0-37.0); Mean Corpuscular Hemoglobin 27.2 pg (25.0-35.0); Mean Corpuscular Volume 94 fL (80-100); Monocytes # (Auto) 0.2 Thou/mm3 (0.0-0.8); Monocytes % (Auto) 1 % (0-12); Neutrophils # (Auto) 16.2 Thou/mm3 (1.8-7.7); Neutrophils % (Auto) 95 % (37-80); Nucleated Red Blood Cell # 0.00 Thou/mm3 (0.00-0.00); Nucleated Red Blood Cell % 0 /100 WBC (0); Platelet Count 457 Thou/mm3 (140-440); RDW Standard Deviation 58.0 fL (36.4-46.3); Red Blood Count 3.53 Miln/mm3 (4.00-5.20); White Blood Count 17.2 Thou/mm3 (3.6-11.0)
[2025-05-25] MEDS: cefTRIAXone/D5w 1gm IV premix 1 GM/50 ML BAG IV (23:18)
[2025-05-25 23:31] VITALS: BP 93/49; PULSE 135; RESP 24; O2SAT 95
[2025-05-25 23:33] LABS: B-Type Natriuretic Peptide 105 pg/mL (0-100)
[2025-05-25 23:34] LABS: Alanine Aminotransferase 50 U/L (10-49); Albumin, Serum 3.9 gm/dL (3.4-4.8); Albumin/Globulin Ratio 1.4 (1.2-2.2); Alkaline Phosphatase 159 U/L (46-116); Anion Gap 14 (7-16); Aspartate Amino Transferase 40 U/L (0-34); BUN/Creatinine Ratio 35 Ratio (12-20); Bilirubin,Total 0.2 mg/dL (0.3-1.2); Blood Urea Nitrogen 45 mg/dL (9-23); Calcium 9.9 mg/dL (8.3-10.6); Calcium (Corrected) 10.0 mg/dL (8.5-10.1); Carbon Dioxide 22.8 mMol/L (20.0-31.0); Chloride 114 mMol/L (98-107); Creatinine (Component) 1.3 mg/dL (0.6-1.3); Estimated Creatinine Clearance 20.6 mL/min (>60); Globulin 2.8 gm/dL (2.3-3.5); Glucose 125 mg/dL (74-106); Osmolality,Calculated 312 (275-295); Potassium 5.1 mMol/L (3.4-5.1); Sodium 151 mMol/L (136-145); Thyroid Stimulating Hormone 2.96 uIU/mL (0.55-4.78); Total Protein 6.7 gm/dL (5.7-8.2); Troponin I 0.032 ng/mL (0.0-0.045); eGFR 41 See Note
[2025-05-25 23:42] LABS: Collection Type, Urine Voided; Squamous Epithelial Cell,Urine 0 /hpf (0-5)
[2025-05-25 23:47] LABS: Amorphous Crystals,Urine Present (Absent); Bacteria,Urine 4+; Bilirubin,Urine Negative (Negative); Blood,Urine 2+ (Negative); Color,Urine Orange (Lt Yel-Yel); Glucose, Urine Negative (Negative); Ketones,Urine Negative (Negative); Leukocyte Esterase,Urine Positive (Negative); Nitrite,Urine Negative (Negative); PH,Urine 7.0 (5.0-7.0); Protein,Urine 2+ (Neg - Trace); RBC,Urine 7 /hpf (0-3); Specific Gravity,Urine 1.015 (1.001-1.035); Urobilinogen,Urine Negative mg/dL (0.0-1.0); WBC,Urine 56 /hpf (0-5)
[2025-05-25 23:49] LABS: Clarity,Urine Turbid (Clear/Hazy)
[2025-05-25] MEDS: RINGERS LACTATED 1000 ML 1,000 ML 999 ML IV (23:49)
[2025-05-26] VITALS (10 sets, daily range): BP systolic 92–141; BP diastolic 49–101; PULSE 95–127; RESP 12–96; TEMP 36.3–37.3; O2SAT 90–100; BMI 18.1; BMI 18.0
[2025-05-26] MEDS: PIPER/TAZO INJ 4.5 GM in SODIUM CHLORIDE 0.9% (POP) 100 ML IV (00:47)
[2025-05-26] MEDS: Vancomycin Inj 1,000 MG in SODIUM CHLORIDE 0.9% 250 ML 250 ML 120 MG IV (00:48)
[2025-05-26] MEDS: RINGERS LACTATED 1000 ML 1,000 ML 999 ML IV (00:48)
[2025-05-26 01:09] LABS: Influenza A Ag Negative; Influenza B Ag Negative
--- NOTE | 2025-05-26 01:45 | ESHP_ITS ---
<Statement entered by Matthew Duke MD - 05/26/25 07:16> I have discussed and was present for the essential components of the history, physical examination, diagnosis, and treatment plan with the resident. I agree with the patient's care as documented by the resident and amended herein by me. Matthew Duke MD FACP. Documentation for date of: 05/26/25 HPI History of Present Illness History of present illness: 85 year old female with history of dementia, paroxysmal atrial fibrillation, hypertension, diabetes, hyperlipidemia, ulcerative colitis, prior colon cancer, s/p PEG tube presented to [facility] from [facility] for increased respirations. Admitted for sepsis rule out secondary either to UTI or pneumonia ED Course Summary: Vitals: 76/39 HR 145 RR 20 T 101.2F O2 96% RA Labs: WBC 17.2 Hgb 9.6, Na 151 BUN 45 Cr 1.3 Imaging: EKG shows sinus tachycardia at a rate of 145 without ischemic change or ectopy CXR bilateral perihilar RUL PNA. UA orange in color and turbid +2 protein +2 blood WBC 56 Bacteria +4. Treatment: Zosyn 4.5 g IV and pharmacy dose vancomycin IV Upon initial examination patient was nonverbal. She could open eyes spontaneously and follow commands. Protects airway. GCS 12. She is unable to communicate and no SNF staff where there. She was shivering in bed, and was provided another blanket which helped stop the shivering. Code: Full per ED sign out Insulin: Unable to obtain Medical Hx: Medications: Pending med rec: Per chart review: Amiodarone HCl oral tablet 200 mg twice daily, Pro-Stat 30 mL via G-tube 1 time a day, ferrous sulfate oral tablet 325 mg, Dulcolax rectal Suppository 10 mg as needed constipation, acetaminophen 325 mg 2 tabs as needed mild pain, milk of magnesia 1.2 g every 8 hours as needed, enema. Allergies: KNA Surgical history: UTO Living:SNF All 12 systems reviewed and were negative except otherwise stated in HPI. Exam Vital Signs Temp Pulse Resp BP Pulse Ox O2 Del Method 99.1 F 125 H 22 H 106/64 100 Room Air 05/26/25 00:57 05/26/25 00:57 05/26/25 00:57 05/26/25 00:57 05/26/25 00:57 05/26/25 00:57 Narrative Exam GENERAL APPEARANCE: AOx0, cachectic, left lateral dequibuitous position HEENT: Normocephalic atraumatic, no facial trauma, neck is supple. Lids/conjunctiva normal. Mucous membranes moist, nares normal, lips/teeth normal uvula midline without oral pharyngeal erythema, exudate or swelling TMs normal bilaterally. No lymphangitis/lymphedema. CARDIAC: tachycardic, S1+S2 heard. No murmurs, rubs, or gallops noted RESPIRATORY: Poor respiratory effort, bilateral crackles ABDOMINAL: NBS. Soft, ND/NT. No evidence of fluid wave. No pulsatile masses on exam, rebound tenderness, Edwards sign or pain over Mcburney's point. MUSCLES/EXTREMITIES: No abnormal range of motion, no swelling. DERM: Warm, pink and dry. No rashes, dermatoses, petechiae or lesions. NEUROLOGICAL: Speech is clear and appropriate. Normal level of consciousness. Gait and coordination are normal. 5/5 strength in all extremities. PSYCH: Normal mood and affect. Judgement/competence is appropriate Renal: No CVA tenderness Results: Labs 05/25/25 22:58 05/26/25 01:55 Labs: Short CBC 05/25/25 Range/Units 22:58 WBC 17.2 H (3.6-11.0) Thou/mm3 Hgb 9.6 L (12.0-16.0) g/dL Hct 33.0 L (36.0-46.0) % Plt Count 457 H D (140-440) Thou/mm3 BMP 05/25/25 22:58 Sodium 151 H Potassium 5.1 Chloride 114 H Carbon Dioxide 22.8 BUN 45 H Creatinine 1.3 Glucose 125 H Calcium 9.9 Cardiac Enzymes 05/25/25 Range/Units 22:58 Troponin I 0.032 (0.0-0.045) ng/mL Liver Function 05/25/25 Range/Units 22:58 Total Bilirubin 0.2 L (0.3-1.2) mg/dL AST 40 H (0-34) U/L ALT 50 H (10-49) U/L Alkaline Phosphatase 159 H (46-116) U/L Albumin 3.9 (3.4-4.8) gm/dL Urine 05/25/25 Range/Units 22:45 Urine Color [place] A (Lt Yel-Yel) Urine Clarity Turbid A (Clear/Hazy) Urine pH 7.0 (5.0-7.0) Ur Specific [place] 1.015 (1.001-1.035) Urine Protein 2+ A (Neg - Trace) Urine Glucose (UA) Negative (Negative) Quality Measures Quality Measures sepsis Current suspected stage: septic shock (LA >4 and/or hypotension) Sepsis reassessment completed at (date): 05/26/25 Sepsis reassessment completed at (time): 06:00 Possible source: pulmonary and genitourinary Blood cultures ordered: yes Antibiotic ordered: Yes Advance care planning discussed with:: other Medications Home Medications and Allergies Home Medications ?Medication ?Instructions ?Recorded ?Confirmed ?Type ferrous sulfate 325 mg (65 mg 325 mg feeding tube QDAY 03/24/25 03/24/25 History iron) tablet (Gil-Time) Allergies Allergy/AdvReac Type Severity Reaction Status Date / Time No Known Allergies Allergy Verified 04/11/25 03:33 Visit Medications Acetaminophen (Acetaminophen 325 Mg Tablet) 650 mg PO Q6H PRN PRN Reason: Fever >100.4 or pain 1-3 Stop: 06/25/25 01:31 Hydrocodone Bitart/Acetaminophen (Hydrocodone/Apap 5/325 Tablet) 1 tab PO Q4HR PRN PRN Reason: PAIN SCALE 4-6 (Moderate Stop: 05/31/25 01:37 Docusate Sodium (Docusate Sod 100 Mg Capsule) 100 mg PO QDAY [facility]; Protocol Stop: 06/25/25 08:59 Heparin Sodium (Porcine) (Heparin Sod Inj 5000 Unit/Ml Vial) 5,000 unit SC Q12HR [facility] Stop: 06/09/25 08:59 Vancomycin HCl 1,000 mg/ (Sodium Chloride) 250 mls @ 120 mls/hr IV X1 ONE Stop: 05/26/25 02:34 Last Infusion: 05/26/25 01:29 Dose: 0 mls/hr Dextrose/Sodium Chloride (D5-1/2ns) 1,000 mls @ 60 mls/hr IV .[id number] [facility] Stop: 06/25/25 01:44 Piperacillin/Tazobactam/Dextrose (Zosyn) 50 mls @ 100 mls/hr IV Q8HR [facility]; Protocol Stop: 06/02/25 01:43 Morphine Sulfate (Morphine Sulf Inj 4 Mg/Ml Vial) 2 mg IVP Q4HR PRN PRN Reason: PAIN SCALE 7-10 (Severe Stop: 05/31/25 01:37 Pantoprazole Sodium (Pantoprazole Inj 40 Mg Vial) 40 mg IVP QDAY [facility] Stop: 06/25/25 08:59 Pharmacy Consult (Vancomycin Pharmacy To Dose 1 Each Each) 1 each IV QDAY [facility] Stop: 06/25/25 08:59 Discontinued Medications Ceftriaxone Sodium/Dextrose (Rocephin/D5w 1gm Iv Premix) 1 gm in 50 mls @ 100 mls/hr IV X1 ONE Stop: 05/25/25 23:25 Last Infusion: 05/25/25 23:49 Dose: Infused Lactated Ringer's (Lactated Ringers) 1,000 mls @ 999 mls/hr IV .Q1H1M ONE Stop: 05/26/25 00:41 Last Infusion: 05/26/25 01:16 Dose: Infused Lactated Ringer's (Lactated Ringers) 1,000 mls @ 999 mls/hr IV .Q1H1M ONE Stop: 05/26/25 01:14 Last Admin: 05/26/25 00:48 Dose: 999 mls/hr Piperacillin Sod/Tazobactam (Sod 4.5 gm/ Sodium Chloride) 100 mls @ 200 mls/hr IV X1 ONE; Protocol Stop: 05/26/25 00:45 Last Admin: 05/26/25 00:47 Dose: 200 mls/hr Assessment & Plan Plan 85 year old female with history of dementia, paroxysmal atrial fibrillation, hypertension, diabetes, hyperlipidemia, ulcerative colitis, prior colon cancer, s/p PEG tube presented to [facility] from [facility] for increased respirations. Admitted for sepsis rule out secondary either to UTI or pneumonia. Patient most likely would benefit from changing code status after multiple admissions, considering quality of life, encouraging goals of care discussion. #Sepsis #UTI #PNA CAP vs HAP vs atypical #lactic acidosis - resolving Patient presents from [facility] hypotensive 76/39 tachycardic HR 145 and febrile 101.2F. Nonverbal at baseline. Crackles auscultated in lungs. CXR bilateral perihilar RUL PNA. UA orange in color and turbid +2 protein +2 blood WBC 56 Bacteria +4. BP is responsive to fluids. Started Zosyn 3.375g for dual coverage of UTI and CAP Plan: -Lactic acid Q3H 5.1 --> 4.7 -Blood cx:____ -IVF -Zosyn 3.375g for dual coverage of UTI and CAP (05/26- -Vanc pharmacy dosing (05/26- #Goals of care Patient has repeat admissions. Failure to thrive #LU #Pre-renal azotemia BUN 45 Cr 1.3, most likely due to physiologic volume depletion in setting of sepsis Plan: -Continue IVF #Hypernatremia Most likely secondary to dehydration. Asymptomatic at the moment. Plan: -D5 fluids (hypotonic) at gentle rate 60ml/hr -Sodium Q3H -Calc free water deficit - Add water flushes pending dietitian consult #Transaminitis Mild, AST 40 ALT 50 ALP 159 most likely due to volume depletion in setting of sepsis. Plan: -CTM -Continue IVF #Hx of diabetes Plan: -ISS -Glucose bedside checks ACHS #Hx of afib No medications discussed. Plan: -Restart meds pending med rec Health Maintenance: Code status: Full DVT prophylaxis: GI prophylaxis: Diet: NPO pending speech eval [place]: Yes Lines: PIV Supplemental O2: NC Disposition: Med tele Patient seen and reviewed with attending Dr. Duke. Note written by Rylan Murrieta MD PGY-1
[2025-05-26 02:06] LABS: Reflex Lactate? Y
[2025-05-26 02:24] LABS: Lactate (Lactic Acid) 4.7 mMol/L (0.4-2.0)
--- NOTE | 2025-05-26 02:31 | PC.NURSE ---
CALL MADE TO PHARMACY, PHARMACIST WILL VERIFY MED ONCE PT IS IN ROOM UPSTAIRS
[2025-05-26] MEDS: DEXTROSE 5%-0.45% NS 1,000 ML 60 ML IV (02:48)
[2025-05-26 02:54] LABS: Sodium 151 mMol/L (136-145)
[2025-05-26 05:16] LABS: Reflex Lactate? Y
[2025-05-26 06:05] LABS: Lactate (Lactic Acid) 3.2 mMol/L (0.4-2.0)
[2025-05-26] MEDS: DEXTROSE 5%-0.45% NS 1,000 ML 75 ML IV ×2 (06:20→18:38)
[2025-05-26] MEDS: PIPER/TAZO 3.375 GM PREMIX 3.375 GM/50 ML BAG IV ×3 (06:20→22:41)
[2025-05-26 06:27] LABS: Alanine Aminotransferase 39 U/L (10-49); Albumin, Serum 2.9 gm/dL (3.4-4.8); Albumin/Globulin Ratio 1.3 (1.2-2.2); Alkaline Phosphatase 121 U/L (46-116); Anion Gap 10 (7-16); Aspartate Amino Transferase 40 U/L (0-34); BUN/Creatinine Ratio 29 Ratio (12-20); Bilirubin,Total 0.3 mg/dL (0.3-1.2); Blood Urea Nitrogen 35 mg/dL (9-23); Calcium 8.9 mg/dL (8.3-10.6); Calcium (Corrected) 9.8 mg/dL (8.5-10.1); Carbon Dioxide 24.1 mMol/L (20.0-31.0); Chloride 117 mMol/L (98-107); Creatinine (Component) 1.2 mg/dL (0.6-1.3); Estimated Creatinine Clearance 22.4 mL/min (>60); Globulin 2.3 gm/dL (2.3-3.5); Glucose 118 mg/dL (74-106); Magnesium 2.1 mg/dL (1.6-2.6); Osmolality,Calculated 308 (275-295); Phosphorous 3.6 mg/dL (2.4-5.1); Potassium 4.0 mMol/L (3.4-5.1); Sodium 151 mMol/L (136-145); Total Protein 5.2 gm/dL (5.7-8.2); eGFR 45 See Note
[2025-05-26 09:01] LABS: Reflex Lactate? Y
[2025-05-26 09:17] LABS: Lactate (Lactic Acid) 3.4 mMol/L (0.4-2.0)
--- NOTE | 2025-05-26 09:19 | PC.SS ---
Follow up note: Pt is on IV antibiotic.
[2025-05-26 09:29] LABS: Basophils # (Auto) 0.0 Thou/mm3 (0.0-0.2); Basophils % (Auto) 0 % (0-2.5); Eosinophils # (Auto) 0.0 Thou/mm3 (0.0-0.5); Eosinophils % (Auto) 0 % (0-10); Hematocrit 27.2 % (36.0-46.0); Immature Granulocytes Auto 0.08 Thou/mm3 (0.00-0.00); Lymphocytes # (Auto) 0.6 Thou/mm3 (1.0-4.8); Lymphocytes % (Auto) 3 % (10-50); Mean Corpuscular HGB Conc 29.4 g/dl (31.0-37.0); Mean Corpuscular Hemoglobin 27.0 pg (25.0-35.0); Mean Corpuscular Volume 92 fL (80-100); Monocytes # (Auto) 0.8 Thou/mm3 (0.0-0.8); Monocytes % (Auto) 5 % (0-12); Neutrophils # (Auto) 15.0 Thou/mm3 (1.8-7.7); Neutrophils % (Auto) 91 % (37-80); Nucleated Red Blood Cell # 0.00 Thou/mm3 (0.00-0.00); Nucleated Red Blood Cell % 0 /100 WBC (0); Platelet Count 379 Thou/mm3 (140-440); RDW Standard Deviation 56.3 fL (36.4-46.3); Red Blood Count 2.96 Miln/mm3 (4.00-5.20); White Blood Count 16.4 Thou/mm3 (3.6-11.0)
[2025-05-26 09:31] LABS: Hemoglobin 8.0 g/dL (12.0-16.0)
[2025-05-26 09:39] LABS: Sodium 150 mMol/L (136-145)
[2025-05-26] MEDS: HEPARIN SOD INJ 5000 UNIT/ML VIAL SC ×2 (09:53→20:08)
--- NOTE | 2025-05-26 10:25 | PCS.ST ---
Swallow Evaluation completed. See report for details. Pt is not appropriate for PO at this time. Continue PEG for nutrition.
--- NOTE | 2025-05-26 11:46 | XR_ITS ---
Examination: Abdomen AP single view Technique: AP portable supine abdomen, single view Exam date and time: May 26, 2025, 12:27 p.m. INDICATIONS: Unknown position gastrostomy tube FINDINGS: Contrast present in the stomach and small bowel, no abnormal extravasation of contrast noted IMPRESSION: Gastrostomy tube appears in satisfactory position
[2025-05-26 12:19] LABS: Reflex Lactate? Y
[2025-05-26 14:15] LABS: Lactate (Lactic Acid) 3.5 mMol/L (0.4-2.0)
--- NOTE | 2025-05-26 14:28 | ESPR_ITS ---
<Statement entered by Darnell Rodgers MD - 05/27/25 16:12> Patient was seen and examined at bedside. I agree on the assessment and plan on this note as documented by resident Vicky Beal MD PGY1. 55-year-old female with past medical history as below admitted for sepsis secondary to UTI/CAP, will continue IV Zosyn and vancomycin, continues to have elevated lactate will continue IV fluid boluses as needed, PEG tube placement confirmed with x-ray Gastrografin, started on tube feeds. Continues to have hypernatremia, will switch D5 half NS to D5W, will continue to monitor sodium check. Patient's called and informed, requesting to change CODE STATUS to DNR/DNI, will respect family's wishes. Case discussed with attending Dr. Miles Scott MD PGY-2 Documentation for date of: 05/26/25 Subjective Subjective Interval history: 85yo female with a history of dementia, failure to thrive status post PEG tube placement, colon polyp/adenoma, aFib, anemia BIBA from [facility] presents to the ED for a chief complaint of increased RR. Admitted for sepsis, source UTI vs pneumonia. Full ROS is unobtainable in ED due to the patient's baseline dementia. Of note, patient is a full code. ED: Patient was nonverbal. She could open eyes spontaneously and follow commands. Protects airway. GCS 12. UA positive, CXR showed bilateral perihilar infiltrates with a right upper lobe pneumonia, Sepsis alert initiated, source were likely UTI and pneumonia. Given LR 2L SBP 70s improved to 100 after 300-400cc, Rocephin 1g, Zosyn 4.5g IV, Vancomycin IV Interval: Patient seen and examined by bedside. Patient appeared agitated, withdrawing upper and lower extremities. Vital signs stable. Exam Vital Signs Temp Pulse Resp BP Pulse Ox O2 Del Method 97.8 F 95 18 141/101 H 90 L Room Air 05/26/25 12:00 05/26/25 12:00 05/26/25 12:00 05/26/25 12:00 05/26/25 12:00 05/26/25 12:00 Narrative Exam GENERAL APPEARANCE: AOx0, cachectic, agitated HEENT: Normocephalic atraumatic, no facial trauma, neck is supple. Lids/conjunctiva normal. Mucous membranes moist, nares normal, lips/teeth normal uvula midline without oral pharyngeal erythema, exudate or swelling TMs normal bilaterally. No lymphangitis/lymphedema. CARDIAC: Regular rate and rthythm, S1+S2 heard. No murmurs, rubs, or gallops noted RESPIRATORY: Increase respiratory effort, bilateral rhonchi ABDOMINAL: NBS. Soft, ND/NT. No evidence of fluid wave. No pulsatile masses on exam, rebound tenderness, Edwards sign or pain over Mcburney's point. MUSCLES/EXTREMITIES: Withdrawing upper and lower extremities DERM: Warm, pink and dry. Echymosis observed on upper extremities bilaterally, likely due to repeat IV access NEUROLOGICAL: Speech in 1 word yes or no. Unable to accessdue to baseline dementia and patient's inability to follow command. PSYCH: Agitated and fidgety Renal: No CVA tenderness Objective Labs 05/27/25 06:00 05/27/25 06:00 Labs: Laboratory Results - last 24 hr 05/25/25 05/25/25 05/26/25 22:45 22:58 00:30 WBC 17.2 H RBC 3.53 L Hgb 9.6 L Hct 33.0 L MCV 94 MCH 27.2 MCHC 29.1 L RDW Std Deviation 58.0 H Plt Count 457 H D Neut % (Auto) 95 H Lymph % (Auto) 4 L Haines % (Auto) 1 Eos % (Auto) 0 Baso % (Auto) 0 Neut # (Auto) 16.2 H Lymph # (Auto) 0.6 L Haines # (Auto) 0.2 Eos # (Auto) 0.0 Baso # (Auto) 0.0 Immature Gran # (Auto) 0.07 H Absolute Nucleated RBC 0.00 Immature Gran % 0 Nucleated RBC % 0 Sodium 151 H Potassium 5.1 Chloride 114 H Carbon Dioxide 22.8 Anion Gap 14 BUN 45 H Creatinine 1.3 Estim Creat Clear Calc 20.6 L eGFR 41 L BUN/Creatinine Ratio 35 H Glucose 125 H Calculated Osmolality 312 H Lactic Acid 5.1 H* Calcium 9.9 Corrected Calcium 10.0 Phosphorus Magnesium Total Bilirubin 0.2 L AST 40 H ALT 50 H Alkaline Phosphatase 159 H Troponin I 0.032 B-Natriuretic Peptide 105 H Total Protein 6.7 Albumin 3.9 Globulin 2.8 Albumin/Globulin Ratio 1.4 TSH 2.96 Ur Collection Type Voided Urine Color Garfield A Urine Clarity Turbid A Urine pH 7.0 Ur Specific Kiln 1.015 Urine Protein 2+ A Urine Glucose (UA) Negative Urine Ketones Negative Urine Blood 2+ A Urine Nitrite Negative Urine Bilirubin Negative Urine Urobilinogen (Auto) Negative Ur Leukocyte Esterase Positive Urine RBC 7 H Urine WBC 56 H Ur Squamous Epith Cells 0 Amorphous Crystals Present A Urine Bacteria 4+ A Influenza A (Rapid) Negative Influenza B (Rapid) Negative 05/26/25 05/26/25 05/26/25 01:55 05:48 09:09 WBC 16.4 H RBC 2.96 L Hgb 8.0 L Hct 27.2 L MCV 92 MCH 27.0 MCHC 29.4 L RDW Std Deviation 56.3 H Plt Count 379 D Neut % (Auto) 91 H Lymph % (Auto) 3 L Haines % (Auto) 5 Eos % (Auto) 0 Baso % (Auto) 0 Neut # (Auto) 15.0 H Lymph # (Auto) 0.6 L Haines # (Auto) 0.8 Eos # (Auto) 0.0 Baso # (Auto) 0.0 Immature Gran # (Auto) 0.08 H Absolute Nucleated RBC 0.00 Immature Gran % 1 H Nucleated RBC % 0 Sodium 151 H 151 H 150 H Potassium 4.0 D Chloride 117 H Carbon Dioxide 24.1 Anion Gap 10 BUN 35 H Creatinine 1.2 Estim Creat Clear Calc 22.4 L eGFR 45 L BUN/Creatinine Ratio 29 H Glucose 118 H Calculated Osmolality 308 H Lactic Acid 4.7 H* 3.2 H 3.4 H Calcium 8.9 Corrected Calcium 9.8 Phosphorus 3.6 Magnesium 2.1 Total Bilirubin 0.3 AST 40 H ALT 39 Alkaline Phosphatase 121 H D Troponin I B-Natriuretic Peptide Total Protein 5.2 L Albumin 2.9 L D Globulin 2.3 Albumin/Globulin Ratio 1.3 TSH Ur Collection Type Urine Color Urine Clarity Urine pH Ur Specific Kiln Urine Protein Urine Glucose (UA) Urine Ketones Urine Blood Urine Nitrite Urine Bilirubin Urine Urobilinogen (Auto) Ur Leukocyte Esterase Urine RBC Urine WBC Ur Squamous Epith Cells Amorphous Crystals Urine Bacteria Influenza A (Rapid) Influenza B (Rapid) 05/26/25 05/26/25 09:09 13:59 WBC RBC Hgb Hct MCV MCH MCHC RDW Std Deviation Plt Count Neut % (Auto) Lymph % (Auto) Haines % (Auto) Eos % (Auto) Baso % (Auto) Neut # (Auto) Lymph # (Auto) Haines # (Auto) Eos # (Auto) Baso # (Auto) Immature Gran # (Auto) Absolute Nucleated RBC Immature Gran % Nucleated RBC % Sodium Potassium Chloride Carbon Dioxide Anion Gap BUN Creatinine Estim Creat Clear Calc eGFR BUN/Creatinine Ratio Glucose Calculated Osmolality Lactic Acid Cancelled 3.5 H Calcium Corrected Calcium Phosphorus Magnesium Total Bilirubin AST ALT Alkaline Phosphatase Troponin I B-Natriuretic Peptide Total Protein Albumin Globulin Albumin/Globulin Ratio TSH Ur Collection Type Urine Color Urine Clarity Urine pH Ur Specific Kiln Urine Protein Urine Glucose (UA) Urine Ketones Urine Blood Urine Nitrite Urine Bilirubin Urine Urobilinogen (Auto) Ur Leukocyte Esterase Urine RBC Urine WBC Ur Squamous Epith Cells Amorphous Crystals Urine Bacteria Influenza A (Rapid) Influenza B (Rapid) Quality Measures Quality Measures sepsis Current suspected stage: sepsis Possible source: pulmonary and genitourinary Blood cultures ordered: yes Antibiotic ordered: Yes Advance care planning discussed with:: patient Assessment & Plan Assessment Current Active Medications: Generic Name Dose Route Start Last Admin Trade Name Freq PRN Reason Stop Dose Admin Acetaminophen 650 mg 05/26/25 01:32 Acetaminophen 325 Mg Tablet PO 06/25/25 01:31 Q6H PRN Fever >100.4 or pain 1-3 Hydrocodone Bitart/Acetaminophen 1 tab 05/26/25 01:38 Hydrocodone/Apap 5/325 Tablet PO 05/31/25 01:37 Q4HR PRN PAIN SCALE 4-6 (Moderate Dextrose 25 ml 05/26/25 05:05 Dextrose 50%-Water Inj 50 Ml Syringe IV 06/25/25 05:04 Q15MIN PRN BG 50-70 responsive npo pt Dextrose 50 ml 05/26/25 05:05 Dextrose 50%-Water Inj 50 Ml Syringe IV 06/25/25 05:04 Q15MIN PRN BG <50 OR BG <70 & pt unresponsive Docusate Sodium 100 mg 05/26/25 09:00 05/26/25 09:54 Docusate Sod 100 Mg Capsule PO 06/25/25 08:59 Not Given QDAY LORNE Protocol Glucagon 1 mg 05/26/25 05:05 Glucagon Inj 1 Mg Vial IM Q15MIN PRN BG <70, and no IV access Heparin Sodium (Porcine) 5,000 unit 05/26/25 09:00 05/26/25 09:53 Heparin Sod Inj 5000 Unit/Ml Vial SC 06/09/25 08:59 5,000 unit Q12HR LORNE Administration Piperacillin/Tazobactam/Dextrose 3.375 gm in 50 mls @ 100 mls/hr 05/26/25 06:15 05/26/25 13:48 Zosyn IV 06/02/25 06:14 100 mls/hr Q8HR LORNE Administration Protocol Dextrose/Sodium Chloride 1,000 mls @ 75 mls/hr 05/26/25 05:45 05/26/25 06:20 D5-1/2ns IV 06/25/25 05:44 75 mls/hr .[id number] LORNE Administration Insulin Human Lispro 0 unit 05/26/25 12:00 05/26/25 11:42 Insulin Lispro (Admelog) 1 Unit/0.01 Ml Unit SC 06/25/25 11:59 Not Given Q6HR LORNE Protocol Morphine Sulfate 2 mg 05/26/25 01:38 Morphine Sulf Inj 4 Mg/Ml Vial IVP 05/31/25 01:37 Q4HR PRN PAIN SCALE 7-10 (Severe Pantoprazole Sodium 40 mg 05/26/25 09:00 05/26/25 09:53 Pantoprazole Inj 40 Mg Vial IVP 06/25/25 08:59 40 mg QDAY LORNE Administration Pharmacy Consult 1 each 05/26/25 09:00 Vancomycin Pharmacy To Dose 1 Each Each IV 06/25/25 08:59 QDAY PRN PROTOCOL Plan #Sepsis, sofa crew criteria greater then 2 #UTI #Community-acquired pneumonia likely secondary to gram-positive versus gram- negative organisms #lactic acidosis - resolving Patient presents from [facility] hypotensive 76/39 tachycardic HR 145 and febrile 101.2F. Nonverbal at baseline. Crackles auscultated in lungs. CXR bilateral perihilar RUL PNA. UA orange in color and turbid +2 protein +2 blood WBC 56 Bacteria +4. BP is responsive to fluids. Started Zosyn 3.375g for dual coverage of UTI and CAP. Last UTI 1 month ago positive E.coli, 2 months ago positive for Morganella morganii and Enterococcus faecium (grp d), 3 months ago positive for E. coli Plan: -Lactic acid Q3H 5.1 --> 3.4 -Pending blood culture -Discontinue IVF (not on right now) -Zosyn 3.375g for dual coverage of UTI and CAP (05/26-negative blood culture 48hr?) -Vanc pharmacy dosing (05/26-negative blood culture 48hr?) -PEG tube patent per XR gastrographin, pending diet per dietitian #Goals of care Patient has repeat admissions (2 months ago, 1 month ago). Failure to thrive. Goal of care was discussed last admission, agreed to go comfort care but due to insurance conflict, patient remained full code to go to SNF. Plan: -Reconfirm goal of care with #LU #Pre-renal azotemia BUN 45 Cr 1.3, improved to 1.2, most likely due to physiologic volume depletion in setting of sepsis Plan: -Remain hydrated with oral and PPN route -Avoid nephrotoxic agents -Monitor renal panel daily #Hypernatremia Na 151 slowly downtrending. Most likely secondary to dehydration. Asymptomatic at the moment. Plan: -D5 fluids (hypotonic) at gentle rate 75ml/hr -Sodium Q3H -Calc free water deficit - Add water flushes pending dietitian consult #Transaminitis Mild, AST 40 ALT 50 ALP 159, improving. Most likely due to volume depletion in setting of sepsis. Plan: -Monitor labs daily #Hx of diabetes Plan: -ISS -Glucose bedside checks ACHS -Reassess after restarting PPN #Hx of afib Currently stable, not tachycardic. Med rec did not show Afib medications. Tachycardia upon admission likely due to sepsis. Plan: -Continue to monitor on tele Health Maintenance: Code status: Full DVT prophylaxis: GI prophylaxis: Diet: NPO pending speech eval Renteria: Yes Lines: PIV Supplemental O2: NC Disposition: Med tele Assessment and plan discussed with my attending physician Dr. Del Real and Dr. Meadows (PGY-2). Dr. Beal (PGY-1) ? surgical resident Attending Provider Attestation/Addendum I have discussed and was present for the essential components of the history, physical examination, diagnosis, and treatment plan with the resident. I agree with the patient's care as documented by the resident and amended herein by me. Harrison Del Real DO. Although this document has been carefully reviewed, there may still be some phonetic and other typographical errors. These errors are purely grammatical due to imperfections in the software program and should not be construed in any way to compromise the substance of the patient's medical care during this visit.
[2025-05-26 14:37] LABS: Sodium 152 mMol/L (136-145)
--- NOTE | 2025-05-26 15:07 | EVENTNT_ITS ---
Documentation for date of: 05/26/25 Event Note Event Note: Called patient's Adam Thao, updated him on patient's admission diagnosis treatment and prognosis, CODE STATUS discussed with , requesting to change patient's CODE STATUS to DNR/DNI, c onfirmed by resident Dr. Meadows as well by phone. Otherwise not interested in hospice options, wants to pursue full treatment. Case discussed with Attending Physician Dr. Gt Rodgers MD Internal Medicine PGY-2 Disclaimer: This note was dictated by speech recognition. Minor errors in shader and toner may be present due to voice recognition software.
[2025-05-26] MEDS: RINGERS LACTATED 500 ML 500 ML 999 ML IV ×2 (15:31→18:34)
[2025-05-26 16:57] LABS: Lactate (Lactic Acid) 4.0 mMol/L (0.4-2.0)
[2025-05-26 17:11] LABS: Reflex Lactate? Y
[2025-05-26 17:13] LABS: Sodium 153 mMol/L (136-145)
[2025-05-26] MEDS: DEXTROSE 5%-WATER 1,000 ML 75 ML IV (19:09)
[2025-05-26 19:47] LABS: Reflex Lactate? Y
[2025-05-26 20:41] LABS: Base Excess, Venous -3 (-3-3); O2 Saturation, Venous 50 % (96-97); PCO2, Venous 34 mmHg (36-56); PO2, Venous 30 mmHg (15-58); pH, Venous 7.41 (7.33-7.66)
[2025-05-26 20:42] LABS: Lactate (Lactic Acid) 1.5 mMol/L (0.4-2.0)
[2025-05-26 21:01] LABS: Sodium 139 mMol/L (136-145)
[2025-05-26 23:58] LABS: Sodium 150 mMol/L (136-145)
[2025-05-27] VITALS (20 sets, daily range): BP systolic 80–124; BP diastolic 46–87; PULSE 70–109; RESP 18–96; TEMP 36.2–36.9; O2SAT 95–100; BMI 18.6
--- NOTE | 2025-05-27 04:33 | PC.NURSE ---
Dr. Webb notified of BP 80/46 (MAP 57) with HR 90s. stated that he would talk to Dr. Mcintosh about it.
[2025-05-27] MEDS: RINGERS LACTATED 1000 ML 250 ML 999 ML IV ×2 (05:19→06:26)
[2025-05-27] MEDS: ALBUMIN HUMAN-KJDA 25% IVPB 25 GM/100 ML BTL IV (05:19)
[2025-05-27] MEDS: MIDODRINE 5 MG TABLET GT (05:19)
--- NOTE | 2025-05-27 05:23 | EVENTNT_ITS ---
Documentation for date of: 05/27/25 Event Note Event Note: At approximately 4:47 AM today, nursing contacted the night resident team regarding the patient's blood pressure of 80/46 mmHg with a MAP of 57 and a heart rate of 90 bpm. The patient remained asymptomatic at the time. We evalua marlin the patient at the bedside, performing a bedside u/s, which revealed a compressible IVC. In response, we administered a 250 mL bolus of lactated Ringer's, 25 grams of albumin, and resumed the patient's home midodrine regimen at 5 mg every 6 hours as needed. We will continue to monitor the patient's blood pressure closely and adjust treatment as needed. Additionally, the patient has been experiencing voluminous stools, which may be contributing to the hypotension due to potential GI fluid losses. If still having vouminous stools during the day, consider C diff testing. Kendell Webb MD PGY-1
[2025-05-27 06:17] LABS: Lactate (Lactic Acid) 2.9 mMol/L (0.4-2.0)
--- NOTE | 2025-05-27 06:23 | PC.NURSE ---
Dr. Mcintosh notified regarding low BPs and recent lactic acid of 2.9. New orders received.
[2025-05-27 06:27] LABS: Basophils # (Auto) 0.0 Thou/mm3 (0.0-0.2); Basophils % (Auto) 1 % (0-2.5); Eosinophils # (Auto) 0.1 Thou/mm3 (0.0-0.5); Eosinophils % (Auto) 1 % (0-10); Hematocrit 21.1 % (36.0-46.0); Immature Granulocytes Auto 0.04 Thou/mm3 (0.00-0.00); Lymphocytes # (Auto) 0.6 Thou/mm3 (1.0-4.8); Lymphocytes % (Auto) 7 % (10-50); Mean Corpuscular HGB Conc 29.4 g/dl (31.0-37.0); Mean Corpuscular Hemoglobin 26.8 pg (25.0-35.0); Mean Corpuscular Volume 91 fL (80-100); Monocytes # (Auto) 0.4 Thou/mm3 (0.0-0.8); Monocytes % (Auto) 4 % (0-12); Neutrophils # (Auto) 7.3 Thou/mm3 (1.8-7.7); Neutrophils % (Auto) 87 % (37-80); Nucleated Red Blood Cell # 0.00 Thou/mm3 (0.00-0.00); Nucleated Red Blood Cell % 0 /100 WBC (0); Platelet Count 325 Thou/mm3 (140-440); RDW Standard Deviation 54.6 fL (36.4-46.3); Red Blood Count 2.31 Miln/mm3 (4.00-5.20); White Blood Count 8.4 Thou/mm3 (3.6-11.0)
[2025-05-27 06:33] LABS: Hemoglobin 6.2 g/dL (12.0-16.0)
[2025-05-27] MEDS: DEXTROSE 5%-WATER 1,000 ML 100 ML IV (06:41)
[2025-05-27 07:02] LABS: Alanine Aminotransferase 30 U/L (10-49); Albumin, Serum 2.6 gm/dL (3.4-4.8); Albumin/Globulin Ratio 1.4 (1.2-2.2); Alkaline Phosphatase 95 U/L (46-116); Anion Gap 11 (7-16); Aspartate Amino Transferase 30 U/L (0-34); BUN/Creatinine Ratio 22 Ratio (12-20); Bilirubin,Total < 0.2 mg/dL (0.3-1.2); Blood Urea Nitrogen 24 mg/dL (9-23); Calcium 8.4 mg/dL (8.3-10.6); Calcium (Corrected) 9.5 mg/dL (8.5-10.1); Carbon Dioxide 20.6 mMol/L (20.0-31.0); Chloride 116 mMol/L (98-107); Creatinine (Component) 1.1 mg/dL (0.6-1.3); Estimated Creatinine Clearance 25.2 mL/min (>60); Globulin 1.9 gm/dL (2.3-3.5); Glucose 95 mg/dL (74-106); Magnesium 2.1 mg/dL (1.6-2.6); Osmolality,Calculated 298 (275-295); Phosphorous 3.1 mg/dL (2.4-5.1); Potassium 3.6 mMol/L (3.4-5.1); Sodium 148 mMol/L (136-145); Total Protein 4.5 gm/dL (5.7-8.2); Vancomycin,Random 7.8 mcg/mL; eGFR 50 See Note
--- NOTE | 2025-05-27 09:05 | PC.SS ---
Update: Patient receiving IV antibiotics. IV fluids to correct sodium level, elevated. Plan for transfussion.
[2025-05-27 09:15] LABS: Reflex Lactate? Y
[2025-05-27] MEDS: VANCOMYCIN/NS 750 MG IVPB 750 MG/150 ML BAG 150 MG IV (09:21)
[2025-05-27 10:36] LABS: Lactate (Lactic Acid) 1.5 mMol/L (0.4-2.0)
[2025-05-27 12:47] LABS: Cocci Serology, IgM Negative (Negative)
[2025-05-27] MEDS: PIPER/TAZO 3.375 GM PREMIX 3.375 GM/50 ML BAG IV ×2 (14:10→22:40)
--- NOTE | 2025-05-27 15:26 | ESPR_ITS ---
<Statement entered by Timbo Meadows MD - 05/27/25 15:51> Patient seen and examined at bedside. I discussed and supervised with the equine intern physician who took care of this patient. I personally saw and examined the patient. I agree with most of the assessment and plan. Plan of care discussed with attending Dr. Del Real. Timbo Meadows MD PGY-2 Documentation for date of: 05/27/25 Subjective Subjective Interval history: Overnight: Hypotensive to 80/46 MAP 57 HR 90, bedside echo showed fluid responsive, given to 250cc bolus, restarted home midodrine, lactate initially decreased then increased, restarted LR, gave 25g albumin.? Hgb 6.2. Patient remained asymptomatic. Reported to have voluminous stools which could contribute to GI fluid loss, consider C diff if persist. Patient is currently on Zosyn and Vancomycin for 1 day. Per nurse, continuous liquidy bowel movements, was pasty overnight but liquidy now. No melena or hematochezia noted. Exam Vital Signs Temp Pulse Resp BP Pulse Ox O2 Del Method 97.1 F 88 20 117/87 H 96 Room Air 05/27/25 14:25 05/27/25 14:27 05/27/25 14:27 05/27/25 14:25 05/27/25 14:25 05/27/25 11:35 Narrative Exam GENERAL APPEARANCE: AOx0, cachectic, agitated, in bilateral hand mitten HEENT: Normocephalic atraumatic, no facial trauma, neck is supple. Lids/conjunctiva normal. Mucous membranes moist, nares normal, lips/teeth normal uvula midline without oral pharyngeal erythema, exudate or swelling TMs normal bilaterally. No lymphangitis/lymphedema. CARDIAC: Regular rate and rthythm, S1+S2 heard. No murmurs, rubs, or gallops noted RESPIRATORY: Increase respiratory effort, bilateral rhonchi ABDOMINAL: NBS. Soft, ND/NT. No evidence of fluid wave. No pulsatile masses on exam, rebound tenderness, Edwards sign or pain over Mcburney's point. MUSCLES/EXTREMITIES: Withdrawing upper and lower extremities DERM: Warm, pink and dry. Echymosis observed on upper extremities bilaterally, likely due to repeat IV access NEUROLOGICAL: Speech in 1 word yes or no. Unable to accessdue to baseline dementia and patient's inability to follow command. PSYCH: Agitated and fidgety Renal: No CVA tenderness Objective Labs 05/27/25 06:00 05/27/25 06:00 Labs: Laboratory Results - last 24 hr 05/26/25 05/26/25 05/26/25 16:19 20:16 23:24 WBC RBC Hgb Hct MCV MCH MCHC RDW Std Deviation Plt Count Neut % (Auto) Lymph % (Auto) [place] % (Auto) Eos % (Auto) Baso % (Auto) Neut # (Auto) Lymph # (Auto) [place] # (Auto) Eos # (Auto) Baso # (Auto) Immature Gran # (Auto) Absolute Nucleated RBC Immature Gran % Nucleated RBC % VBG pH 7.41 VBG pCO2 34 L VBG pO2 30 VBG O2 Sat (Oni) 50 L VBG Base Excess -3 Sodium 153 H 139 D 150 H D Potassium Chloride Carbon Dioxide Anion Gap BUN Creatinine Estim Creat Clear Calc eGFR BUN/Creatinine Ratio Glucose Calculated Osmolality Lactic Acid 4.0 H 1.5 Calcium Corrected Calcium Phosphorus Magnesium Total Bilirubin AST ALT Alkaline Phosphatase Total Protein Albumin Globulin Albumin/Globulin Ratio Random Vancomycin Coccidioides IgM Ab Negative Blood Type Antibody Screen Crossmatch Blood Bank Wristband ID 05/27/25 05/27/25 05/27/25 06:00 07:16 10:24 WBC 8.4 D RBC 2.31 L Hgb 6.2 L* D Hct 21.1 L* MCV 91 MCH 26.8 MCHC 29.4 L RDW Std Deviation 54.6 H Plt Count 325 D Neut % (Auto) 87 H Lymph % (Auto) 7 L [place] % (Auto) 4 Eos % (Auto) 1 Baso % (Auto) 1 Neut # (Auto) 7.3 Lymph # (Auto) 0.6 L [place] # (Auto) 0.4 Eos # (Auto) 0.1 Baso # (Auto) 0.0 Immature Gran # (Auto) 0.04 H Absolute Nucleated RBC 0.00 Immature Gran % 1 H Nucleated RBC % 0 VBG pH VBG pCO2 VBG pO2 VBG O2 Sat (Oni) VBG Base Excess Sodium 148 H Potassium 3.6 Chloride 116 H Carbon Dioxide 20.6 Anion Gap 11 BUN 24 H Creatinine 1.1 Estim Creat Clear Calc 25.2 L eGFR 50 L BUN/Creatinine Ratio 22 H Glucose 95 Calculated Osmolality 298 H Lactic Acid 2.9 H 1.5 Calcium 8.4 Corrected Calcium 9.5 Phosphorus 3.1 Magnesium 2.1 Total Bilirubin < 0.2 L AST 30 ALT 30 Alkaline Phosphatase 95 D Total Protein 4.5 L Albumin 2.6 L Globulin 1.9 L Albumin/Globulin Ratio 1.4 Random Vancomycin 7.8 Coccidioides IgM Ab Blood Type A Positive Antibody Screen NEGATIVE Crossmatch See Detail Blood Bank Wristband ID Yes ABG Interpretation ABG results: 05/26/25 20:16 VBG pH 7.41 VBG pCO2 34 L VBG pO2 30 VBG Base Excess -3 Quality Measures Quality Measures sepsis Current suspected stage: severe sepsis Possible source: pulmonary and genitourinary Blood cultures ordered: yes Antibiotic ordered: Yes Advance care planning discussed with:: spouse Assessment & Plan Assessment Current Active Medications: Generic Name Dose Route Start Last Admin Trade Name Freq PRN Reason Stop Dose Admin Acetaminophen 650 mg 05/26/25 01:32 Acetaminophen 325 Mg Tablet PO 06/25/25 01:31 Q6H PRN Fever >100.4 or pain 1-3 Hydrocodone Bitart/Acetaminophen 1 tab 05/26/25 01:38 Hydrocodone/Apap 5/325 Tablet PO 05/31/25 01:37 Q4HR PRN PAIN SCALE 4-6 (Moderate Dextrose 25 ml 05/26/25 05:05 Dextrose 50%-Water Inj 50 Ml Syringe IV 06/25/25 05:04 Q15MIN PRN BG 50-70 responsive npo pt Dextrose 50 ml 05/26/25 05:05 Dextrose 50%-Water Inj 50 Ml Syringe IV 06/25/25 05:04 Q15MIN PRN BG <50 OR BG <70 & pt unresponsive Docusate Sodium 100 mg 05/26/25 09:00 05/27/25 10:49 Docusate Sod 100 Mg Capsule PO 06/25/25 08:59 Not Given QDAY LORNE Protocol Glucagon 1 mg 05/26/25 05:05 Glucagon Inj 1 Mg Vial IM Q15MIN PRN BG <70, and no IV access Heparin Sodium (Porcine) 5,000 unit 05/26/25 09:00 05/26/25 20:08 Heparin Sod Inj 5000 Unit/Ml Vial SC 06/09/25 08:59 5,000 unit On Hold: 05/27/25 07:22 Q12HR LORNE Administration Piperacillin/Tazobactam/Dextrose 3.375 gm in 50 mls @ 100 mls/hr 05/26/25 06:15 05/27/25 14:10 Zosyn IV 06/02/25 06:14 100 mls/hr Q8HR LORNE Administration Protocol Dextrose 1,000 mls @ 100 mls/hr 05/27/25 06:21 05/27/25 06:41 D5w IV 05/27/25 16:20 100 mls/hr .Q10H LORNE Administration Vancomycin/Sodium Chloride 750 mg in 150 mls @ 150 mls/hr 05/27/25 09:00 05/27/25 09:21 Vancomycin/Ns 750 Mg Ivpb IV 06/03/25 08:59 150 mls/hr DAILY LORNE Administration Insulin Human Lispro 0 unit 05/26/25 12:00 05/27/25 12:01 Insulin Lispro (Admelog) 1 Unit/0.01 Ml Unit SC 06/25/25 11:59 Not Given Q6HR [facility] Protocol Loperamide HCl 2 mg 05/27/25 11:48 Loperamide 2 Mg Capsule PO 06/03/25 11:47 Q6HR PRN DIARRHEA Midodrine 5 mg 05/27/25 05:07 05/27/25 05:19 Midodrine 5 Mg Tablet GT 06/26/25 05:06 5 mg Q6HR PRN Administration SBP <90 Morphine Sulfate 2 mg 05/26/25 01:38 Morphine Sulf Inj 4 Mg/Ml Vial IVP 05/31/25 01:37 Q4HR PRN PAIN SCALE 7-10 (Severe Pantoprazole Sodium 40 mg 05/26/25 09:00 05/27/25 09:21 Pantoprazole Inj 40 Mg Vial IVP 06/25/25 08:59 40 mg QDAY LORNE Administration Pharmacy Consult 1 each 05/26/25 09:00 Vancomycin Pharmacy To Dose 1 Each Each IV 06/25/25 08:59 QDAY PRN PROTOCOL Plan #Sepsis, sofa score greater than 2 #UTI #Community-acquired pneumonia likely secondary to gram-positive versus gram- negative organisms #lactic acidosis Patient presents from [facility] hypotensive 76/39 tachycardic HR 145 and febrile 101.2F. Nonverbal at baseline. Crackles auscultated in lungs. CXR bilateral perihilar RUL PNA. UA orange in color and turbid +2 protein +2 blood WBC 56 Bacteria +4. BP is responsive to fluids. Started Zosyn 3.375g for dual coverage of UTI and CAP. Last UTI 1 month ago positive E.coli, 2 months ago positive for Morganella morganii and Enterococcus faecium (grp d), 3 months ago positive for E. coli Patient was hypotensive overnight with increasing lactate. Plan: -Lactic acid Q3H 5.1 -> 1.5 -> 2.9 -Fluid responsive on bedside echo -Continue D5W 100cc/hr -Restarted home midodrine 5mg every 6 hours as needed -Zosyn 3.375g for dual coverage of UTI and CAP (05/26-) -Vanc pharmacy dosing (05/26-) -Pending blood culture -Pending Cocci -PEG tube patent per XR gastrographin, tube feed restarted #Anemia History of anemia, on iron at home. History of vaginal bleed. Per nurse, no vaginal bleed observed. Not on blood thinner. Hgb 6.2 this morning from 8.0. No reported of melena, hemoptysis, hematemesis, hematochezia. Given continuous IVF, likely hemodilutional effect. However, in the current setting of sepsis and mutiple comorbodities, will transfuse blood. Plan: -2u for pRBC -Reassess H&H after transfusion -Assess for source of bleeding if Hgb does not improve #Diarrhea Started overnight, conincide with starting of tube feed. Antibiotics only started recently, unlikely to cause diarrhea. Infectious source is inlikely. Plan: -Consult dietitian for tube feed option -Loperamide 2mg every 6 hrs as needed #LU - Resolved At admission. BUN 45 Cr 1.3, improved, most likely due to physiologic volume depletion in setting of sepsis Plan: -Remain hydrated with oral and PPN route -Avoid nephrotoxic agents -Monitor renal panel daily #Hypernatremia Na 151 slowly downtrending. Most likely secondary to dehydration. Asymptomatic at the moment. Plan: -Continue D5W 100cc/hr -Sodium Q3H #Transaminitis - Resolved At admission. Mild, AST 40 ALT 50 ALP 159, improving. Most likely due to volume depletion in setting of sepsis. Plan: -Monitor labs daily #Hx of diabetes Plan: -ISS -Glucose bedside checks ACHS -Reassess after restarting PPN #Hx of afib - Resolved Currently stable, not tachycardic. Med rec did not show Afib medications. Tachycardia upon admission likely due to sepsis. Plan: -Continue to monitor on tele #Goals of care Patient has repeat admissions (2 months ago, 1 month ago). Failure to thrive. Goal of care was discussed last admission, agreed to go comfort care but due to insurance conflict, patient remained full code to go to SNF. Spoke to , Code status changes to DNR/DNI as of 05/26 Health Maintenance: Code status: Full DVT prophylaxis: Heparin GI prophylaxis: Protonix Diet: PPN Renteria: Yes Lines: PIV, PEG Supplemental O2: None Disposition: Tele bed Assessment and plan discussed with my attending physician Dr. Del Real and Dr. Maedows (PGY-2). Dr. Beal (PGY-1) ? residential green building designer Attending Provider Attestation/Addendum I have discussed and was present for the essential components of the history, physical examination, diagnosis, and treatment plan with the resident. I agree with the patient's care as documented by the resident and amended herein by me. Harrison Del Real DO. Although this document has been carefully reviewed, there may still be some phonetic and other typographical errors. These errors are purely grammatical due to imperfections in the software program and should not be construed in any way to compromise the substance of the patient's medical care during this visit. Patient seen and evaluated this AM. Overnight, fluid bolus given, patient was responsive, midodrine and albumin also given. Patient shown to be anemic on morning labs hemoglobin 6.2 may be hemodilution from copious fluids given however patient was transfused post H&H pending. Other significant labs this morning included a downtrending WBC 8.4, sodium 148, chloride 116, BUN 24 and creatinine 1.1. Serum awesome's 298, lactic acid had down trended to 2.9. Cocci IgM/IgG pending, blood cultures NGTD, patient was also reported to have volume is diarrhea overnight, may be tube feeding formula hence dietitian has been consulted. Will continue broad-spectrum antibiotic with vancomycin and Zosyn at this time, continue IVF and free water flushes. Will also add loperamide today and continue to monitor closely.
[2025-05-27] MEDS: LOPERAMIDE 2 MG CAPSULE PO (17:38)
[2025-05-27 19:40] LABS: Hematocrit 31.7 % (36.0-46.0); Hemoglobin 9.9 g/dL (12.0-16.0)
[2025-05-27] MEDS: NYSTATIN PWD 15 GM BTL TOP (20:45)
[2025-05-28] VITALS (10 sets, daily range): BP systolic 81–147; BP diastolic 43–85; PULSE 70–99; RESP 16–96; TEMP 36.2–37.4; O2SAT 96–99; BMI 19.0
[2025-05-28 06:03] LABS: Basophils # (Auto) 0.1 Thou/mm3 (0.0-0.2); Basophils % (Auto) 1 % (0-2.5); Eosinophils # (Auto) 0.3 Thou/mm3 (0.0-0.5); Eosinophils % (Auto) 5 % (0-10); Hematocrit 32.6 % (36.0-46.0); Hemoglobin 10.1 g/dL (12.0-16.0); Immature Granulocytes Auto 0.02 Thou/mm3 (0.00-0.00); Lymphocytes # (Auto) 0.7 Thou/mm3 (1.0-4.8); Lymphocytes % (Auto) 14 % (10-50); Mean Corpuscular HGB Conc 31.0 g/dl (31.0-37.0); Mean Corpuscular Hemoglobin 26.9 pg (25.0-35.0); Mean Corpuscular Volume 87 fL (80-100); Monocytes # (Auto) 0.3 Thou/mm3 (0.0-0.8); Monocytes % (Auto) 6 % (0-12); Neutrophils # (Auto) 3.5 Thou/mm3 (1.8-7.7); Neutrophils % (Auto) 73 % (37-80); Nucleated Red Blood Cell # 0.00 Thou/mm3 (0.00-0.00); Nucleated Red Blood Cell % 0 /100 WBC (0); Platelet Count 253 Thou/mm3 (140-440); RDW Standard Deviation 52.5 fL (36.4-46.3); Red Blood Count 3.75 Miln/mm3 (4.00-5.20); White Blood Count 4.8 Thou/mm3 (3.6-11.0)
[2025-05-28 06:22] LABS: Alanine Aminotransferase 23 U/L (10-49); Albumin, Serum 3.0 gm/dL (3.4-4.8); Albumin/Globulin Ratio 1.8 (1.2-2.2); Alkaline Phosphatase 81 U/L (46-116); Anion Gap 8 (7-16); Aspartate Amino Transferase 27 U/L (0-34); BUN/Creatinine Ratio 16 Ratio (12-20); Bilirubin,Total 0.3 mg/dL (0.3-1.2); Blood Urea Nitrogen 18 mg/dL (9-23); Calcium 8.4 mg/dL (8.3-10.6); Calcium (Corrected) 9.2 mg/dL (8.5-10.1); Carbon Dioxide 23.9 mMol/L (20.0-31.0); Chloride 117 mMol/L (98-107); Creatinine (Component) 1.1 mg/dL (0.6-1.3); Estimated Creatinine Clearance 25.7 mL/min (>60); Globulin 1.7 gm/dL (2.3-3.5); Glucose 94 mg/dL (74-106); Magnesium 2.1 mg/dL (1.6-2.6); Osmolality,Calculated 298 (275-295); Phosphorous 2.8 mg/dL (2.4-5.1); Potassium 4.8 mMol/L (3.4-5.1); Sodium 149 mMol/L (136-145); Total Protein 4.7 gm/dL (5.7-8.2); Vancomycin,Random 13.2 mcg/mL; eGFR 50 See Note
[2025-05-28] MEDS: NYSTATIN PWD 15 GM BTL TOP ×4 (06:31→20:20)
[2025-05-28] MEDS: PIPER/TAZO 3.375 GM PREMIX 3.375 GM/50 ML BAG IV (06:31)
[2025-05-28] MEDS: SODIUM CHLORIDE 0.9% 1000 ML 1,000 ML 999 ML IV (07:03)
--- NOTE | 2025-05-28 09:00 | PC.SS ---
Follow up note: On IV antibiotic. Pt is from [facility].
[2025-05-28] MEDS: VANCOMYCIN/NS 1 GM IVPB 200 ML IV (09:40)
--- NOTE | 2025-05-28 09:44 | PC.SS ---
Pt is from [facility]. SS spoke to Shireen from admissions at [facility] who explained pt has alzheimer's and is confused. Pt is bedbound and requires total care. Per Shireen, patient's medical decision maker is her , Adam Thao. Shireen explained pt is in the process of applying for Medical. Pt is able to return to [facility] upon dc. Shireen also explained pt is able to return with comfort care until her Medical is active but not Hospice Services. Patient?s choice is to return home upon d/c. Pt does not have an advance directive, SS offered, and pt declined. Pt states not diabetic and is not on dialysis. D/C plan: Return to [facility] Next of Kin: Adam Thao, , phone# [phone] PCP: Dr. Liam Mistry Address: Correct on facesheet
[2025-05-28] MEDS: cefTRIAXone/D5w 1gm IV premix 1 GM/50 ML BAG IV (12:23)
[2025-05-28 12:57] LABS: Cocci Serology, IgG Negative (Negative)
[2025-05-28] MEDS: AZITHROMYCIN INJ 500 MG in SODIUM CHLORIDE 0.9% 250 ML 250 ML 250 MG IV (13:13)
--- NOTE | 2025-05-28 13:37 | ESPR_ITS ---
<Statement entered by Timbo Meadows MD - 05/29/25 14:47> Patient seen and examined at bedside. I discussed and supervised with the customer marketing intern physician who took care of this patient. I personally saw and examined the patient. I agree with most of the assessment and plan. Plan of care discussed with attending Dr. Del Real. Timbo Meadows MD PGY-2 Documentation for date of: 05/28/25 Subjective Subjective Interval history: ON: Repeat H&H status post 2u pRBC 6.2 -> 9.9 -> 10.1. Rapid response was called this morning due to patient hypotensive in 81/43 with MAP of 50 and change in mentation. Patient agitated at baseline, was not agitated this morning. Patient was noted to be asleep. Upon being waken up patient blood pressure improved to 94/52 with MAP of 73. 1 bolus NS given. Per nurse patient still have continuously liquid diarrhea despite loperamide. Exam Vital Signs Temp Pulse Resp BP Pulse Ox O2 Del Method 99.3 F 73 20 136/84 H 98 Room Air 05/28/25 12:00 05/28/25 12:00 05/28/25 12:00 05/28/25 12:00 05/28/25 12:00 05/28/25 12:00 Narrative Exam GENERAL APPEARANCE: AOx0, cachectic, agitated, in bilateral hand mitten HEENT: Normocephalic atraumatic, no facial trauma, neck is supple. Lids/conjunctiva normal. Mucous membranes moist, nares normal, lips/teeth normal uvula midline without oral pharyngeal erythema, exudate or swelling TMs normal bilaterally. No lymphangitis/lymphedema. CARDIAC: Regular rate and rthythm, S1+S2 heard. No murmurs, rubs, or gallops noted RESPIRATORY: Increase respiratory effort, bilateral rhonchi ABDOMINAL: NBS. Soft, ND/NT. No evidence of fluid wave. No pulsatile masses on exam, rebound tenderness, Edwards sign or pain over Mcburney's point. MUSCLES/EXTREMITIES: Withdrawing upper and lower extremities DERM: Warm, pink and dry. Echymosis observed on upper extremities bilaterally, likely due to repeat IV access NEUROLOGICAL: Unable to access due to baseline dementia and patient's inability to follow command. PSYCH: Fidgety Renal: No CVA tenderness Objective Labs 05/29/25 04:59 05/29/25 04:59 Labs: Laboratory Results - last 24 hr 05/26/25 05/27/25 05/27/25 20:16 07:16 19:30 WBC RBC Hgb 9.9 L D Hct 31.7 L D MCV MCH MCHC RDW Std Deviation Plt Count Neut % (Auto) Lymph % (Auto) [place] % (Auto) Eos % (Auto) Baso % (Auto) Neut # (Auto) Lymph # (Auto) [place] # (Auto) Eos # (Auto) Baso # (Auto) Immature Gran # (Auto) Absolute Nucleated RBC Immature Gran % Nucleated RBC % Sodium Potassium Chloride Carbon Dioxide Anion Gap BUN Creatinine Estim Creat Clear Calc eGFR BUN/Creatinine Ratio Glucose Calculated Osmolality Calcium Corrected Calcium Phosphorus Magnesium Total Bilirubin AST ALT Alkaline Phosphatase Total Protein Albumin Globulin Albumin/Globulin Ratio Stl C. diff Tox B Gene Random Vancomycin Coccidioides IgG Ab Negative Blood Type A Positive Antibody Screen NEGATIVE Crossmatch See Detail Blood Bank Wristband ID Yes 05/28/25 05/28/25 05:06 10:33 WBC 4.8 D RBC 3.75 L Hgb 10.1 L Hct 32.6 L MCV 87 MCH 26.9 MCHC 31.0 RDW Std Deviation 52.5 H Plt Count 253 D Neut % (Auto) 73 Lymph % (Auto) 14 [place] % (Auto) 6 Eos % (Auto) 5 Baso % (Auto) 1 Neut # (Auto) 3.5 Lymph # (Auto) 0.7 L [place] # (Auto) 0.3 Eos # (Auto) 0.3 Baso # (Auto) 0.1 Immature Gran # (Auto) 0.02 H Absolute Nucleated RBC 0.00 Immature Gran % 0 Nucleated RBC % 0 Sodium 149 H Potassium 4.8 D Chloride 117 H Carbon Dioxide 23.9 Anion Gap 8 BUN 18 Creatinine 1.1 Estim Creat Clear Calc 25.7 L eGFR 50 L BUN/Creatinine Ratio 16 Glucose 94 Calculated Osmolality 298 H Calcium 8.4 Corrected Calcium 9.2 Phosphorus 2.8 Magnesium 2.1 Total Bilirubin 0.3 AST 27 ALT 23 Alkaline Phosphatase 81 Total Protein 4.7 L Albumin 3.0 L Globulin 1.7 L Albumin/Globulin Ratio 1.8 Stl C. diff Tox B Gene Cancelled Random Vancomycin 13.2 Coccidioides IgG Ab Blood Type Antibody Screen Crossmatch Blood Bank Wristband ID ABG Interpretation ABG results: 05/26/25 20:16 VBG pH 7.41 VBG pCO2 34 L VBG pO2 30 VBG Base Excess -3 Quality Measures Quality Measures sepsis Current suspected stage: sepsis Possible source: pulmonary and genitourinary Blood cultures ordered: yes Antibiotic ordered: Yes Advance care planning discussed with:: patient and spouse Assessment & Plan Assessment Current Active Medications: Generic Name Dose Route Start Last Admin Trade Name Freq PRN Reason Stop Dose Admin Acetaminophen 650 mg 05/26/25 01:32 Acetaminophen 325 Mg Tablet PO 06/25/25 01:31 Q6H PRN Fever >100.4 or pain 1-3 Hydrocodone Bitart/Acetaminophen 1 tab 05/26/25 01:38 Hydrocodone/Apap 5/325 Tablet PO 05/31/25 01:37 Q4HR PRN PAIN SCALE 4-6 (Moderate Dextrose 25 ml 05/26/25 05:05 Dextrose 50%-Water Inj 50 Ml Syringe IV 06/25/25 05:04 Q15MIN PRN BG 50-70 responsive npo pt Dextrose 50 ml 05/26/25 05:05 Dextrose 50%-Water Inj 50 Ml Syringe IV 06/25/25 05:04 Q15MIN PRN BG <50 OR BG <70 & pt unresponsive Docusate Sodium 100 mg 05/26/25 09:00 05/28/25 09:30 Docusate Sod 100 Mg Capsule PO 06/25/25 08:59 Not Given QDAY LORNE Protocol Glucagon 1 mg 05/26/25 05:05 Glucagon Inj 1 Mg Vial IM Q15MIN PRN BG <70, and no IV access Heparin Sodium (Porcine) 5,000 unit 05/26/25 09:00 05/26/25 20:08 Heparin Sod Inj 5000 Unit/Ml Vial SC 06/09/25 08:59 5,000 unit On Hold: 05/27/25 07:22 Q12HR LORNE Administration Ceftriaxone Sodium/Dextrose 1 gm in 50 mls @ 100 mls/hr 05/28/25 11:59 05/28/25 12:23 Rocephin/D5w 1gm Iv Premix IV 06/04/25 11:58 100 mls/hr QDAY LORNE Administration Azithromycin 500 mg/ Sodium 250 mls @ 250 mls/hr 05/28/25 12:00 05/28/25 13:13 Chloride IV 05/31/25 11:59 250 mls/hr QDAY LORNE Administration Insulin Human Lispro 0 unit 05/26/25 12:00 05/28/25 12:01 Insulin Lispro (Admelog) 1 Unit/0.01 Ml Unit SC 06/25/25 11:59 Not Given Q6HR LORNE Protocol Midodrine 5 mg 05/27/25 05:07 05/27/25 05:19 Midodrine 5 Mg Tablet GT 06/26/25 05:06 5 mg Q6HR PRN Administration SBP <90 Morphine Sulfate 2 mg 05/26/25 01:38 Morphine Sulf Inj 4 Mg/Ml Vial IVP 05/31/25 01:37 Q4HR PRN PAIN SCALE 7-10 (Severe Nystatin 0 gm 05/27/25 17:00 05/28/25 11:53 Nystatin Pwd 15 Gm Btl TOP 06/26/25 16:59 1 applicatio QID LORNE Administration Pantoprazole Sodium 40 mg 05/26/25 09:00 05/28/25 09:40 Pantoprazole Inj 40 Mg Vial IVP 06/25/25 08:59 40 mg QDAY LORNE Administration Zinc Sulfate 220 mg 05/29/25 09:00 Zinc Sulfate 220 Mg Capsule GT 06/28/25 08:59 QDAY LORNE Plan #Sepsis, sofa score greater than 2 #UTI #Community-acquired pneumonia likely secondary to gram-positive versus gram- negative organisms #lactic acidosis - resolved Patient presents from [facility] hypotensive 76/39 tachycardic HR 145 and febrile 101.2F. Nonverbal at baseline. Crackles auscultated in lungs. CXR bilateral perihilar RUL PNA. UA orange in color and turbid +2 protein +2 blood WBC 56 Bacteria +4. BP is responsive to fluids. Started Zosyn 3.375g for dual coverage of UTI and CAP. Last UTI 1 month ago positive E.coli, 2 months ago positive for Morganella morganii and Enterococcus faecium (grp d), 3 months ago positive for E. coli 05/28: Rapid response was called this morning due to patient hypotensive in 81/43 with MAP of 50 and change in mentation, patient agitated at baseline, was not agitated this morning.? Patient was noted to be asleep.? Upon being working up patient blood pressure improved to 94/52 with MAP of 73.? 1 bolus NS given.? Per nurse patient still have continuously liquid diarrhea despite loperamide. Blood pressure is currently 136/84. Cocci negative Plan: -Continue D5/0.5NS at 125cc/hr -Continue home midodrine 5mg every 6 hours as needed -MRSA negative, PRSA PNA unlikely, discontinue Vancomycin -Zosyn 3.375g for dual coverage of UTI and CAP (05/26-) -Pending blood culture #Diarrhea Started after admission, conincide with starting of tube feed. Antibiotics only started recently, unlikely to cause diarrhea. Continue to have continuous diarrhea and hypotension leading to rapid response today. Plan: -Discontinue Loperamide -Start Ceftriaxone (05/28-06/04) and Azithromycin (05/28-05/31) -Pending stool culture -Continue D5/0.5NS at 125cc/hr -Dietitian to adjust tube feed formula today #Hypernatremia Na 151 slowly downtrending. Most likely secondary to dehydration. Asymptomatic at the moment. Plan: -Continue D5/0.5HS 125cc/hr #Anemia - resolved History of anemia, on iron at home. History of vaginal bleed. Per nurse, no vaginal bleed observed. Not on blood thinner. Hgb 6.2 05/27 and 10.1 status post 2u pRBC. No reported of melena, hemoptysis, hematemesis, hematochezia. Given continuous IVF, likely hemodilutional effect. However, in the current setting of sepsis and mutiple comorbodities, will transfuse blood. Plan: -Monitor daily labs #LU - Resolved At admission. BUN 45 Cr 1.3, improved, most likely due to physiologic volume depletion in setting of sepsis Plan: -Remain hydrated with oral and PPN route -Avoid nephrotoxic agents -Monitor renal panel daily #Transaminitis - Resolved At admission. Mild, AST 40 ALT 50 ALP 159, improving. Most likely due to volume depletion in setting of sepsis. Plan: -Monitor labs daily #Hx of diabetes Plan: -ISS -Glucose bedside checks ACHS -On tube feed #Hx of afib - Resolved Currently stable, not tachycardic. Med rec did not show Afib medications. Tachycardia upon admission likely due to sepsis. Plan: -Continue to monitor on tele #Goals of care Patient has repeat admissions (2 months ago, 1 month ago). Failure to thrive. Goal of care was discussed last admission, agreed to go comfort care but due to insurance conflict, patient remained full code to go to SNF. Spoke to , Code status changes to DNR/DNI as of 05/26 Health Maintenance: Code status: Full DVT prophylaxis: Heparin GI prophylaxis: Protonix Diet: Tube feed Renteria: Yes Lines: PIV, PEG Supplemental O2: None Disposition: Tele bed Assessment and plan discussed with my attending physician Dr. Del Real and Dr. Meadows (PGY-2). Dr. Beal (PGY-1) ? residential living assistant Attending Provider Attestation/Addendum I have discussed and was present for the essential components of the history, physical examination, diagnosis, and treatment plan with the resident. I agree with the patient's care as documented by the resident and amended herein by me. Harrison Del Real DO. Although this document has been carefully reviewed, there may still be some phonetic and other typographical errors. These errors are purely grammatical due to imperfections in the software program and should not be construed in any way to compromise the substance of the patient's medical care during this visit.
[2025-05-28 14:18] LABS: Campylobacter PCR Negative (Negative); Salmonella Species PCR Negative (Negative); Shiga Toxin PCR Negative (Negative); Shigella Species PCR Negative (Negative)
[2025-05-28] MEDS: DEXTROSE 5%-0.45% NS 1,000 ML 125 ML IV (18:15)
--- NOTE | 2025-05-28 19:58 | PD.RESEVENT ---
Documentation for date of: 05/28/25 Rapid response was called at 6:40AM due to patient hypotensive in 81/43 with MAP of 50 and change in mentation. Patient agitated at baseline, was not agitated this morning. Patient was noted to be asleep. Upon being waken up patient blood pressure improved to 94/52 with MAP of 73. 1 bolus NS given. This case was discussed with my attending physician, Dr. Del Real, and senior resident, Dr Meadows. Shelton Jimenez, DO PGY I
[2025-05-29] VITALS (7 sets, daily range): BP systolic 99–117; BP diastolic 55–96; PULSE 69–114; RESP 15–22; TEMP 36.1–37.2; O2SAT 99–100; BMI 19.7
[2025-05-29] MEDS: DEXTROSE 5%-0.45% NS 1,000 ML 125 ML IV (02:21)
[2025-05-29] MEDS: NYSTATIN PWD 15 GM BTL TOP ×4 (05:55→22:35)
[2025-05-29 06:48] LABS: Basophils # (Auto) 0.0 Thou/mm3 (0.0-0.2); Basophils % (Auto) 1 % (0-2.5); Eosinophils # (Auto) 0.3 Thou/mm3 (0.0-0.5); Eosinophils % (Auto) 6 % (0-10); Hematocrit 38.2 % (36.0-46.0); Hemoglobin 12.0 g/dL (12.0-16.0); Immature Granulocytes Auto 0.03 Thou/mm3 (0.00-0.00); Lymphocytes # (Auto) 0.6 Thou/mm3 (1.0-4.8); Lymphocytes % (Auto) 10 % (10-50); Mean Corpuscular HGB Conc 31.4 g/dl (31.0-37.0); Mean Corpuscular Hemoglobin 27.3 pg (25.0-35.0); Mean Corpuscular Volume 87 fL (80-100); Monocytes # (Auto) 0.3 Thou/mm3 (0.0-0.8); Monocytes % (Auto) 4 % (0-12); Neutrophils # (Auto) 4.6 Thou/mm3 (1.8-7.7); Neutrophils % (Auto) 78 % (37-80); Nucleated Red Blood Cell # 0.00 Thou/mm3 (0.00-0.00); Nucleated Red Blood Cell % 0 /100 WBC (0); Platelet Count 204 Thou/mm3 (140-440); RDW Standard Deviation 51.9 fL (36.4-46.3); Red Blood Count 4.40 Miln/mm3 (4.00-5.20); White Blood Count 5.9 Thou/mm3 (3.6-11.0)
[2025-05-29 07:04] LABS: Alanine Aminotransferase 22 U/L (10-49); Albumin, Serum 3.0 gm/dL (3.4-4.8); Albumin/Globulin Ratio 1.5 (1.2-2.2); Alkaline Phosphatase 87 U/L (46-116); Anion Gap 9 (7-16); Aspartate Amino Transferase 33 U/L (0-34); BUN/Creatinine Ratio 13 Ratio (12-20); Bilirubin,Total 0.2 mg/dL (0.3-1.2); Blood Urea Nitrogen 10 mg/dL (9-23); Calcium 8.2 mg/dL (8.3-10.6); Calcium (Corrected) 9.0 mg/dL (8.5-10.1); Carbon Dioxide 19.7 mMol/L (20.0-31.0); Chloride 113 mMol/L (98-107); Creatinine (Component) 0.8 mg/dL (0.6-1.3); Estimated Creatinine Clearance 35.7 mL/min (>60); Globulin 2.0 gm/dL (2.3-3.5); Glucose 116 mg/dL (74-106); Magnesium 1.9 mg/dL (1.6-2.6); Osmolality,Calculated 283 (275-295); Phosphorous 2.4 mg/dL (2.4-5.1); Potassium 4.3 mMol/L (3.4-5.1); Sodium 142 mMol/L (136-145); Total Protein 5.0 gm/dL (5.7-8.2); eGFR > 60 See Note
[2025-05-29] MEDS: cefTRIAXone/D5w 1gm IV premix 1 GM/50 ML BAG IV (08:46)
[2025-05-29] MEDS: ZINC SULFATE 220 MG CAPSULE GT (08:46)
[2025-05-29] MEDS: AZITHROMYCIN INJ 500 MG in SODIUM CHLORIDE 0.9% 250 ML 250 ML 250 MG IV (09:58)
[2025-05-29] MEDS: DEXTROSE 5%-NS 1,000 ML 125 ML IV ×2 (11:28→19:50)
[2025-05-29 12:11] LABS: Clostridium Difficile PCR Negative (Negative)
--- NOTE | 2025-05-29 12:26 | ESPR_ITS ---
<Statement entered by Timbo Meadows MD - 05/29/25 17:35> Patient seen and examined at bedside. I discussed and supervised with the international editorial producer physician who took care of this patient. I personally saw and examined the patient. I agree with most of the assessment and plan. Patient more alert and responsive this morning, A&Ox1, able to answer simple questions. Continues to have diarrhea, but improving, C diff negative. Continuing with antibiotics azithromycin and rocephin. Continuing IV fluids D5- NS in setting of low blood sugar and water loss via diarrhea. Metabolic alkalosis likely secondary to diarrhea, will continue to monitor. Plan of care discussed with attending Dr. Del Real. Timbo Meadows MD PGY-2 Documentation for date of: 05/29/25 Subjective Subjective Interval history: Patient was seen and examined at bedside. No acute events took place overnight. Patient has been afebrile, tolerating intake well through the PEG tube. Ongoing diarrhea, but C. difficile came back negative. Patient on restraints with mittens, for pulling on tubes and drains. Patient noted to have improved mentation on assessment, response to questions asked from her and recognizes self identity. Exam Vital Signs Temp Pulse Resp BP Pulse Ox O2 Del Method 97.7 F 71 16 109/75 100 Room Air 05/29/25 08:00 05/29/25 08:00 05/29/25 08:00 05/29/25 08:00 05/29/25 08:00 05/29/25 08:00 Narrative Exam GENERAL APPEARANCE: AOx1, cachectic, agitated, in bilateral hand mitten HEENT: Normocephalic atraumatic, no facial trauma, neck is supple. Lids/conjunctiva normal. Mucous membranes moist, nares normal, lips/teeth normal uvula midline without oral pharyngeal erythema, exudate or swelling TMs normal bilaterally. No lymphangitis/lymphedema. CARDIAC: Irregularly irregular rhythm. S1+S2 heard. No murmurs, rubs, or gallops noted RESPIRATORY: Increase respiratory effort, bilateral rhonchi ABDOMINAL: NBS. Soft, ND/NT. No evidence of fluid wave. No pulsatile masses on exam, rebound tenderness, Edwards sign or pain over Mcburney's point. MUSCLES/EXTREMITIES: Withdrawing upper and lower extremities DERM: Warm, pink and dry. Echymosis observed on upper extremities bilaterally, likely due to repeat IV access NEUROLOGICAL: Unable to access due to baseline dementia and patient's inability to follow command. PSYCH: Fidgety Renal: No CVA tenderness Objective Labs 05/29/25 04:59 05/29/25 04:59 Labs: Laboratory Results - last 24 hr 05/26/25 05/28/25 05/28/25 20:16 10:33 16:33 WBC RBC Hgb Hct MCV MCH MCHC RDW Std Deviation Plt Count Neut % (Auto) Lymph % (Auto) [place] % (Auto) Eos % (Auto) Baso % (Auto) Neut # (Auto) Lymph # (Auto) [place] # (Auto) Eos # (Auto) Baso # (Auto) Immature Gran # (Auto) Absolute Nucleated RBC Immature Gran % Nucleated RBC % Sodium Potassium Chloride Carbon Dioxide Anion Gap BUN Creatinine Estim Creat Clear Calc eGFR BUN/Creatinine Ratio Glucose Calculated Osmolality Calcium Corrected Calcium Phosphorus Magnesium Total Bilirubin AST ALT Alkaline Phosphatase Total Protein Albumin Globulin Albumin/Globulin Ratio Stool Campylobacter PCR Negative Stl C. diff Tox B Gene Negative Stl E.coli Shiga Tox PCR Negative Stool Salmonella PCR Negative Stool Shigella PCR Negative Coccidioides IgG Ab Negative 05/29/25 04:59 WBC 5.9 RBC 4.40 Hgb 12.0 Hct 38.2 MCV 87 MCH 27.3 MCHC 31.4 RDW Std Deviation 51.9 H Plt Count 204 D Neut % (Auto) 78 Lymph % (Auto) 10 [place] % (Auto) 4 Eos % (Auto) 6 Baso % (Auto) 1 Neut # (Auto) 4.6 Lymph # (Auto) 0.6 L [place] # (Auto) 0.3 Eos # (Auto) 0.3 Baso # (Auto) 0.0 Immature Gran # (Auto) 0.03 H Absolute Nucleated RBC 0.00 Immature Gran % 1 H Nucleated RBC % 0 Sodium 142 Potassium 4.3 D Chloride 113 H Carbon Dioxide 19.7 L Anion Gap 9 BUN 10 Creatinine 0.8 Estim Creat Clear Calc 35.7 L eGFR > 60 BUN/Creatinine Ratio 13 Glucose 116 H Calculated Osmolality 283 Calcium 8.2 L Corrected Calcium 9.0 Phosphorus 2.4 Magnesium 1.9 Total Bilirubin 0.2 L AST 33 ALT 22 Alkaline Phosphatase 87 Total Protein 5.0 L Albumin 3.0 L Globulin 2.0 L Albumin/Globulin Ratio 1.5 Stool Campylobacter PCR Stl C. diff Tox B Gene Stl E.coli Shiga Tox PCR Stool Salmonella PCR Stool Shigella PCR Coccidioides IgG Ab ABG Interpretation ABG results: 05/26/25 20:16 VBG pH 7.41 VBG pCO2 34 L VBG pO2 30 VBG Base Excess -3 Quality Measures Quality Measures sepsis Current suspected stage: ruled out Possible source: pulmonary and genitourinary Blood cultures ordered: yes Antibiotic ordered: Yes Advance care planning discussed with:: patient and spouse Assessment & Plan Assessment Current Active Medications: Generic Name Dose Route Start Last Admin Trade Name Freq PRN Reason Stop Dose Admin Acetaminophen 650 mg 05/26/25 01:32 Acetaminophen 325 Mg Tablet PO 06/25/25 01:31 Q6H PRN Fever >100.4 or pain 1-3 Hydrocodone Bitart/Acetaminophen 1 tab 05/26/25 01:38 Hydrocodone/Apap 5/325 Tablet PO 05/31/25 01:37 Q4HR PRN PAIN SCALE 4-6 (Moderate Dextrose 25 ml 05/26/25 05:05 Dextrose 50%-Water Inj 50 Ml Syringe IV 06/25/25 05:04 Q15MIN PRN BG 50-70 responsive npo pt Dextrose 50 ml 05/26/25 05:05 Dextrose 50%-Water Inj 50 Ml Syringe IV 06/25/25 05:04 Q15MIN PRN BG <50 OR BG <70 & pt unresponsive Docusate Sodium 100 mg 05/26/25 09:00 05/29/25 08:40 Docusate Sod 100 Mg Capsule PO 06/25/25 08:59 Not Given QDAY [facility] Protocol Glucagon 1 mg 05/26/25 05:05 Glucagon Inj 1 Mg Vial IM Q15MIN PRN BG <70, and no IV access Heparin Sodium (Porcine) 5,000 unit 05/26/25 09:00 05/26/25 20:08 Heparin Sod Inj 5000 Unit/Ml Vial SC 06/09/25 08:59 5,000 unit On Hold: 05/27/25 07:22 Q12HR [facility] Administration Ceftriaxone Sodium/Dextrose 1 gm in 50 mls @ 100 mls/hr 05/28/25 11:59 05/29/25 09:16 Rocephin/D5w 1gm Iv Premix IV 06/04/25 11:58 Infused QDAY [facility] Infusion Azithromycin 500 mg/ Sodium 250 mls @ 250 mls/hr 05/28/25 12:00 05/29/25 10:58 Chloride IV 05/31/25 11:59 Infused QDAY [facility] Infusion Dextrose/Sodium Chloride 1,000 mls @ 125 mls/hr 05/29/25 10:00 05/29/25 11:28 D5-Ns IV 05/30/25 09:59 125 mls/hr .Q8H [facility] Administration Insulin Human Lispro 0 unit 05/26/25 12:00 05/29/25 11:22 Insulin Lispro (Admelog) 1 Unit/0.01 Ml Unit SC 06/25/25 11:59 Not Given Q6HR [facility] Protocol Midodrine 5 mg 05/27/25 05:07 05/27/25 05:19 Midodrine 5 Mg Tablet GT 06/26/25 05:06 5 mg Q6HR PRN Administration SBP <90 Morphine Sulfate 2 mg 05/26/25 01:38 Morphine Sulf Inj 4 Mg/Ml Vial IVP 05/31/25 01:37 Q4HR PRN PAIN SCALE 7-10 (Severe Nystatin 0 gm 05/27/25 17:00 05/29/25 11:23 Nystatin Pwd 15 Gm Btl TOP 06/26/25 16:59 1 applicatio QID [facility] Administration Pantoprazole Sodium 40 mg 05/26/25 09:00 05/29/25 08:46 Pantoprazole Inj 40 Mg Vial IVP 06/25/25 08:59 40 mg QDAY [facility] Administration Zinc Sulfate 220 mg 05/29/25 09:00 05/29/25 08:46 Zinc Sulfate 220 Mg Capsule GT 06/28/25 08:59 220 mg QDAY [facility] Administration Plan #Sepsis, sofa score greater than 2 #UTI #Community-acquired pneumonia likely secondary to gram-positive versus gram- negative organisms Patient presents [facility] hypotensive 76/39 tachycardic HR 145 and febrile 101.2F. Nonverbal at baseline. Crackles auscultated in lungs. CXR bilateral perihilar RUL PNA. UA orange in color and turbid +2 protein +2 blood WBC 56 Bacteria +4. BP is responsive to fluids. Started Zosyn 3.375g for dual coverage of UTI and CAP. Last UTI 1 month ago positive E.coli, 2 months ago positive for Morganella morganii and Enterococcus faecium (grp d), 3 months ago positive for E. coli 05/28: Rapid response was called this morning due to patient hypotensive in 81/43 with MAP of 50 and change in mentation, patient agitated at baseline, was not agitated this morning.? Patient was noted to be asleep.? Upon being working up patient blood pressure improved to 94/52 with MAP of 73.? 1 bolus NS given.? Per nurse patient still have continuously liquid diarrhea despite loperamide. Blood pressure is currently 136/84. Cocci negative C. difficile stool toxin came back negative Patient was treated with Zosyn 3.375 g 3 times daily (05/26 -05/27) Plan: -Continue D5/0.5NS at 125cc/hr -Continue home midodrine 5mg every 6 hours as needed -MRSA negative, PRSA PNA unlikely, discontinue Vancomycin -Started Ceftriaxone (05/28-06/04) and Azithromycin (05/28-05/31) -Pending blood culture #Diarrhea #Metabolic Acidosis (NAGMA) Started after admission, conincide with starting of tube feed. Antibiotics only started recently, unlikely to cause diarrhea. Continue to have continuous diarrhea and hypotension leading to rapid response today. HCO3 19.7, AG 9. NAGMA 2/2 acute diarrhea. Plan: -Discontinue Loperamide -Start Ceftriaxone (05/28-06/04) -Pending stool culture -Continue D5/0.5NS at 125cc/hr -Dietitian to adjust tube feed formula today #Hypernatremia -resolved Na 151 slowly downtrending. Most likely secondary to dehydration. Asymptomatic at the moment. On 05/29 NA 142 WNL Plan: -Continue D5/0.5HS 125cc/hr #Anemia - resolved History of anemia, on iron at home. History of vaginal bleed. Per nurse, no vaginal bleed observed. Not on blood thinner. Hgb 6.2 05/27 and 10.1 status post 2u pRBC. No reported of melena, hemoptysis, hematemesis, hematochezia. Given continuous IVF, likely hemodilutional effect. However, in the current setting of sepsis and mutiple comorbodities, will transfuse blood. Plan: -Monitor daily labs #LU - Resolved At admission. BUN 45 Cr 1.3, improved, most likely due to physiologic volume depletion in setting of sepsis Plan: -Remain hydrated with oral and PPN route -Avoid nephrotoxic agents -Monitor renal panel daily #Transaminitis - Resolved At admission. Mild, AST 40 ALT 50 ALP 159, improving. Most likely due to volume depletion in setting of sepsis. Plan: -Monitor labs daily #Hx of diabetes Plan: -ISS -Glucose bedside checks ACHS -On tube feed #Hx of afib - Resolved Currently stable, not tachycardic. Med rec did not show Afib medications. Tachycardia upon admission likely due to sepsis. Plan: -Continue to monitor on tele #Goals of care Patient has repeat admissions (2 months ago, 1 month ago). Failure to thrive. Goal of care was discussed last admission, agreed to go comfort care but due to insurance conflict, patient remained full code to go to SNF. Spoke to , Code status changes to DNR/DNI as of 05/26 Health Maintenance: Code status: Full DVT prophylaxis: Heparin GI prophylaxis: Protonix Diet: Tube feed Renteria: Yes Lines: PIV, PEG Supplemental O2: None Disposition: Tele bed This case was discussed with my attending physician, Dr. Del Real, and senior resident, Dr Meadows. Shelton Jimenez DO PGY I Attending Provider Attestation/Addendum I have discussed and was present for the essential components of the history, physical examination, diagnosis, and treatment plan with the resident. I agree with the patient's care as documented by the resident and amended herein by me. Harrison Del Real DO. Although this document has been carefully reviewed, there may still be some phonetic and other typographical errors. These errors are purely grammatical due to imperfections in the software program and should not be construed in any way to compromise the substance of the patient's medical care during this visit. Patient seen and evaluated this AM. No acute events overnight, vital signs stable, patient afebrile. Will continue broad-spectrum antibiotics for now, patient's blood pressure within normal limits, no episodes of hypotension overnight, will continue to monitor closely.
[2025-05-30] VITALS (7 sets, daily range): BP systolic 118–129; BP diastolic 43–68; PULSE 71–96; RESP 15–35; TEMP 36.6–38.2; O2SAT 94–99; BMI 19.1
[2025-05-30] MEDS: LOPERAMIDE 2 MG CAPSULE PO (00:06)
[2025-05-30] MEDS: DEXTROSE 5%-NS 1,000 ML 125 ML IV (03:56)
[2025-05-30 05:45] LABS: Basophils # (Auto) 0.0 Thou/mm3 (0.0-0.2); Basophils % (Auto) 1 % (0-2.5); Eosinophils # (Auto) 0.3 Thou/mm3 (0.0-0.5); Eosinophils % (Auto) 6 % (0-10); Hematocrit 33.5 % (36.0-46.0); Hemoglobin 10.7 g/dL (12.0-16.0); Immature Granulocytes Auto 0.06 Thou/mm3 (0.00-0.00); Lymphocytes # (Auto) 0.6 Thou/mm3 (1.0-4.8); Lymphocytes % (Auto) 11 % (10-50); Mean Corpuscular HGB Conc 31.9 g/dl (31.0-37.0); Mean Corpuscular Hemoglobin 27.5 pg (25.0-35.0); Mean Corpuscular Volume 86 fL (80-100); Monocytes # (Auto) 0.3 Thou/mm3 (0.0-0.8); Monocytes % (Auto) 5 % (0-12); Neutrophils # (Auto) 4.1 Thou/mm3 (1.8-7.7); Neutrophils % (Auto) 76 % (37-80); Nucleated Red Blood Cell # 0.00 Thou/mm3 (0.00-0.00); Nucleated Red Blood Cell % 0 /100 WBC (0); Platelet Count 279 Thou/mm3 (140-440); RDW Standard Deviation 49.9 fL (36.4-46.3); Red Blood Count 3.89 Miln/mm3 (4.00-5.20); White Blood Count 5.4 Thou/mm3 (3.6-11.0)
[2025-05-30 06:09] LABS: Alanine Aminotransferase 18 U/L (10-49); Albumin, Serum 2.8 gm/dL (3.4-4.8); Albumin/Globulin Ratio 1.6 (1.2-2.2); Alkaline Phosphatase 71 U/L (46-116); Anion Gap 9 (7-16); Aspartate Amino Transferase 18 U/L (0-34); BUN/Creatinine Ratio 11 Ratio (12-20); Bilirubin,Total 0.2 mg/dL (0.3-1.2); Blood Urea Nitrogen 8 mg/dL (9-23); Calcium 8.0 mg/dL (8.3-10.6); Calcium (Corrected) 9.0 mg/dL (8.5-10.1); Carbon Dioxide 22.1 mMol/L (20.0-31.0); Chloride 115 mMol/L (98-107); Creatinine (Component) 0.7 mg/dL (0.6-1.3); Estimated Creatinine Clearance 40.8 mL/min (>60); Globulin 1.7 gm/dL (2.3-3.5); Glucose 127 mg/dL (74-106); Magnesium 1.7 mg/dL (1.6-2.6); Osmolality,Calculated 290 (275-295); Phosphorous 1.7 mg/dL (2.4-5.1); Potassium 3.6 mMol/L (3.4-5.1); Sodium 146 mMol/L (136-145); Total Protein 4.5 gm/dL (5.7-8.2); eGFR > 60 See Note
[2025-05-30] MEDS: NYSTATIN PWD 15 GM BTL TOP ×4 (06:29→21:24)
--- NOTE | 2025-05-30 06:40 | ESPR_ITS ---
<Statement entered by Darnell Rodgers MD - 05/30/25 15:42> Patient was seen and examined at bedside. I agree on the assessment and plan on this note as documented by resident Vicky Beal DO PGY1. 85-year-old female with past medical history as below, admitted for sepsis secondary to UTI/Community-acquired pneumonia, patient continues to have diarrhea, C. difficile was negative, PCR test for Campylobacter, Shiga toxin Salmonella and Shigella were negative as well most likely noninfectious etiology, will start patient on loperamide 2 mg 3 times daily. Patient is hypernatremic today, sodium 146, increase free water flushes to 60 cc/h, D5 NS will be switched to D5W at rate of 100 cc/h. Antibiotics discontinued today. Will continue to monitor patient for diarrhea, continue tube feeds. Case discussed with attending Dr. Miles Scott MD PGY-2 Documentation for date of: 05/30/25 Subjective Subjective Interval history: No acute event overnight. Patient seen and examined by bedside. Patient seemed more alert and oriented to self. Continued to have diarrhea. Will change loperamide from PRN to scheduled TID. If diarrhea does not improve by tomorrow, consider consult GI. WBC downtrending. Urine culture came back negative, will discontinue antibiotics. Exam Vital Signs Temp Pulse Resp BP Pulse Ox O2 Del Method 98.6 F 96 25 H 119/43 L 96 Room Air 05/30/25 04:00 05/30/25 04:00 05/30/25 04:00 05/30/25 04:00 05/30/25 04:00 05/30/25 04:00 Narrative Exam GENERAL APPEARANCE: AOx1, cachectic, agitated, in bilateral hand mitten HEENT: Normocephalic atraumatic, no facial trauma, neck is supple. Lids/conjunctiva normal. Mucous membranes moist, nares normal, lips/teeth normal uvula midline without oral pharyngeal erythema, exudate or swelling TMs normal bilaterally. No lymphangitis/lymphedema. CARDIAC: Irregularly irregular rhythm. S1+S2 heard. No murmurs, rubs, or gallops noted RESPIRATORY: Increase respiratory effort, bilateral rhonchi ABDOMINAL: NBS. Soft, ND/NT. No evidence of fluid wave. No pulsatile masses on exam, rebound tenderness, Edwards sign or pain over Mcburney's point. MUSCLES/EXTREMITIES: Withdrawing upper and lower extremities DERM: Warm, pink and dry. Echymosis observed on upper extremities bilaterally, likely due to repeat IV access NEUROLOGICAL: Unable to access due to baseline dementia and patient's inability to follow command. PSYCH: Fidgety Renal: No CVA tenderness Objective Labs 05/30/25 05:19 05/30/25 05:19 Labs: Laboratory Results - last 24 hr 05/28/25 05/29/25 05/30/25 16:33 04:59 05:19 WBC 5.9 5.4 RBC 4.40 3.89 L Hgb 12.0 10.7 L Hct 38.2 33.5 L MCV 87 86 MCH 27.3 27.5 MCHC 31.4 31.9 RDW Std Deviation 51.9 H 49.9 H Plt Count 204 D 279 D Neut % (Auto) 78 76 Lymph % (Auto) 10 11 [place] % (Auto) 4 5 Eos % (Auto) 6 6 Baso % (Auto) 1 1 Neut # (Auto) 4.6 4.1 Lymph # (Auto) 0.6 L 0.6 L [place] # (Auto) 0.3 0.3 Eos # (Auto) 0.3 0.3 Baso # (Auto) 0.0 0.0 Immature Gran # (Auto) 0.03 H 0.06 H Absolute Nucleated RBC 0.00 0.00 Immature Gran % 1 H 1 H Nucleated RBC % 0 0 Sodium 142 146 H Potassium 4.3 D 3.6 D Chloride 113 H 115 H Carbon Dioxide 19.7 L 22.1 Anion Gap 9 9 BUN 10 8 L Creatinine 0.8 0.7 Estim Creat Clear Calc 35.7 L 40.8 L eGFR > 60 > 60 BUN/Creatinine Ratio 13 11 L Glucose 116 H 127 H Calculated Osmolality 283 290 Calcium 8.2 L 8.0 L Corrected Calcium 9.0 9.0 Phosphorus 2.4 1.7 L Magnesium 1.9 1.7 Total Bilirubin 0.2 L 0.2 L AST 33 18 ALT 22 18 Alkaline Phosphatase 87 71 Total Protein 5.0 L 4.5 L Albumin 3.0 L 2.8 L Globulin 2.0 L 1.7 L Albumin/Globulin Ratio 1.5 1.6 Stl C. diff Tox B Gene Negative ABG Interpretation ABG results: 05/26/25 20:16 VBG pH 7.41 VBG pCO2 34 L VBG pO2 30 VBG Base Excess -3 Quality Measures Quality Measures sepsis Current suspected stage: ruled out Possible source: pulmonary and genitourinary Blood cultures ordered: yes Antibiotic ordered: No Advance care planning discussed with:: spouse Assessment & Plan Assessment Current Active Medications: Generic Name Dose Route Start Last Admin Trade Name Freq PRN Reason Stop Dose Admin Acetaminophen 650 mg 05/26/25 01:32 Acetaminophen 325 Mg Tablet PO 06/25/25 01:31 Q6H PRN Fever >100.4 or pain 1-3 Hydrocodone Bitart/Acetaminophen 1 tab 05/26/25 01:38 Hydrocodone/Apap 5/325 Tablet PO 05/31/25 01:37 Q4HR PRN PAIN SCALE 4-6 (Moderate Dextrose 25 ml 05/26/25 05:05 Dextrose 50%-Water Inj 50 Ml Syringe IV 06/25/25 05:04 Q15MIN PRN BG 50-70 responsive npo pt Dextrose 50 ml 05/26/25 05:05 Dextrose 50%-Water Inj 50 Ml Syringe IV 06/25/25 05:04 Q15MIN PRN BG <50 OR BG <70 & pt unresponsive Docusate Sodium 100 mg 05/26/25 09:00 05/29/25 08:40 Docusate Sod 100 Mg Capsule PO 06/25/25 08:59 Not Given QDAY [facility] Protocol Glucagon 1 mg 05/26/25 05:05 Glucagon Inj 1 Mg Vial IM Q15MIN PRN BG <70, and no IV access Heparin Sodium (Porcine) 5,000 unit 05/26/25 09:00 05/26/25 20:08 Heparin Sod Inj 5000 Unit/Ml Vial SC 06/09/25 08:59 5,000 unit On Hold: 05/27/25 07:22 Q12HR [facility] Administration Ceftriaxone Sodium/Dextrose 1 gm in 50 mls @ 100 mls/hr 05/28/25 11:59 05/29/25 09:16 Rocephin/D5w 1gm Iv Premix IV 06/04/25 11:58 Infused QDAY [facility] Infusion Azithromycin 500 mg/ Sodium 250 mls @ 250 mls/hr 05/28/25 12:00 05/29/25 10:58 Chloride IV 05/31/25 11:59 Infused QDAY [facility] Infusion Dextrose/Sodium Chloride 1,000 mls @ 125 mls/hr 05/29/25 10:00 05/30/25 03:56 D5-Ns IV 05/30/25 09:59 125 mls/hr .Q8H [facility] Administration Insulin Human Lispro 0 unit 05/26/25 12:00 05/30/25 06:28 Insulin Lispro (Admelog) 1 Unit/0.01 Ml Unit SC 06/25/25 11:59 Not Given Q6HR [facility] Protocol Loperamide HCl 2 mg 05/29/25 18:24 05/30/25 00:06 Loperamide 2 Mg Capsule PO 06/05/25 18:23 2 mg Q6HR PRN Administration DIARRHEA Midodrine 5 mg 05/29/25 13:23 Midodrine 5 Mg Tablet GT 06/26/25 05:06 Q6HR PRN SBP <90 Morphine Sulfate 2 mg 05/26/25 01:38 Morphine Sulf Inj 4 Mg/Ml Vial IVP 05/31/25 01:37 Q4HR PRN PAIN SCALE 7-10 (Severe Nystatin 0 gm 05/27/25 17:00 05/30/25 06:29 Nystatin Pwd 15 Gm Btl TOP 06/26/25 16:59 1 applicatio QID [facility] Administration Pantoprazole Sodium 40 mg 05/26/25 09:00 05/29/25 08:46 Pantoprazole Inj 40 Mg Vial IVP 06/25/25 08:59 40 mg QDAY [facility] Administration Zinc Sulfate 220 mg 05/29/25 09:00 05/29/25 08:46 Zinc Sulfate 220 Mg Capsule GT 06/28/25 08:59 220 mg QDAY [facility] Administration Plan #Sepsis, sofa score greater than 2 #UTI #Community-acquired pneumonia likely secondary to gram-positive versus gram- negative organisms Patient presents from [facility] hypotensive 76/39 tachycardic HR 145 and febrile 101.2F. Nonverbal at baseline. Crackles auscultated in lungs. CXR bilateral perihilar RUL PNA. UA orange in color and turbid +2 protein +2 blood WBC 56 Bacteria +4. BP is responsive to fluids. Started Zosyn 3.375g for dual coverage of UTI and CAP. Last UTI 1 month ago positive E.coli, 2 months ago positive for Morganella morganii and Enterococcus faecium (grp d), 3 months ago positive for E. coli Cocci negative C. difficile stool toxin came back negative Blood culture 05/25 negative Patient was treated with Zosyn 3.375 g 3 times daily (05/26 -05/27) Plan: -Change D5/0.5HS 125cc/hr to D5W 100cc/hr -Continue home midodrine 5mg every 6 hours as needed -MRSA negative, PRSA PNA unlikely, discontinue Vancomycin -Discontinue Ceftriaxone (05/28-06/04) and Azithromycin (05/28-05/31) #Diarrhea #Metabolic Acidosis (NAGMA) - resolved Started after admission, conincide with starting of new tube feed formula. Antibiotics only started recently, unlikely to cause diarrhea. Continue to have continuous diarrhea and hypotension leading to rapid response today. AG 9. NAGMA 2/2 acute diarrhea. Plan: -Will change loperamide from PRN to scheduled TID. -If diarrhea does not improve by tomorrow, consider consult GI. Urine and blood culture negative, will discontinue antibiotics. -Pending stool culture -Change D5/0.5HS 125cc/hr to D5W 100cc/hr -Increase free water from 40cc/hr to 60cc/hr #Hypernatremia Na 151 initially downtrending, now uptrending again. Asymptomatic at the moment. On 05/29 NA 146 Plan: -Change D5/0.5HS 125cc/hr to D5W 100cc/hr -Increase free water from 40cc/hr to 60cc/hr #Severe Protein Calorie Malnutrition #Severe Failure to Thrive Plan: -Currently on tube feed -Dietitian to follow #Anemia - resolved History of anemia, on iron at home. History of vaginal bleed. Per nurse, no vaginal bleed observed. Not on blood thinner. Hgb 6.2 05/27 and 10.1 status post 2u pRBC. No reported of melena, hemoptysis, hematemesis, hematochezia. Given continuous IVF, likely hemodilutional effect. However, in the current setting of sepsis and mutiple comorbodities, will transfuse blood. Plan: -Monitor daily labs #LU - Resolved At admission. BUN 45 Cr 1.3, improved, most likely due to physiologic volume depletion in setting of sepsis Plan: -Remain hydrated with oral and PPN route -Avoid nephrotoxic agents -Monitor renal panel daily #Transaminitis - Resolved At admission. Mild, AST 40 ALT 50 ALP 159, improving. Most likely due to volume depletion in setting of sepsis. Plan: -Monitor labs daily #Hx of diabetes Plan: -ISS -Glucose bedside checks ACHS -On tube feed #Hx of afib - Resolved Currently stable, not tachycardic. Med rec did not show Afib medications. Tachycardia upon admission likely due to sepsis. Plan: -Continue to monitor on tele #Goals of care Patient has repeat admissions (2 months ago, 1 month ago). Failure to thrive. Goal of care was discussed last admission, agreed to go comfort care but due to insurance conflict, patient remained full code to go to SNF. Spoke to , Code status changes to DNR/DNI as of 05/26 Health Maintenance: Code status: DNR/DNI DVT prophylaxis: Heparin GI prophylaxis: Protonix Diet: Tube feed Renteria: Yes Lines: PIV, PEG Supplemental O2: None Disposition: Tele bed Assessment and plan discussed with my attending physician Dr. Del Real and Dr. Rodgers (PGY-2). Dr. Beal (PGY-1) ? manager residential Attending Provider Attestation/Addendum I have discussed and was present for the essential components of the history, physical examination, diagnosis, and treatment plan with the resident. I agree with the patient's care as documented by the resident and amended herein by me. Harrison Del Rela DO. Although this document has been carefully reviewed, there may still be some phonetic and other typographical errors. These errors are purely grammatical due to imperfections in the software program and should not be construed in any way to compromise the substance of the patient's medical care during this visit. Patient seen and evaluated this AM. No acute events overnight, vital signs stable, the patient has been afebrile. 4+ loose bowel movements recorded overnight, previous C. difficile testing was negative, PCR for other infectious organisms to include E. coli, Salmonella and Shigella negative. Patient has completed a 5-day course for her pneumonia today hence ongoing to stop antibiotics which may be a cause of her diarrhea. Will schedule loperamide today. Urine culture and blood cultures negative thus far, will continue D5 at 100 mL/h and increase free water flushes, hopefully DC in 1 to 2 days pending improvement in her diarrhea. Patient's mentation is back to baseline which is ANO x 1 from what we can tell. Will continue to monitor closely.
[2025-05-30] MEDS: NAPH,KPH MBDB 1 PACKET (1.5 GM) GT ×2 (09:00→21:07)
[2025-05-30] MEDS: AZITHROMYCIN INJ 500 MG in SODIUM CHLORIDE 0.9% 250 ML 250 ML 250 MG IV (09:00)
[2025-05-30] MEDS: cefTRIAXone/D5w 1gm IV premix 1 GM/50 ML BAG IV (09:00)
[2025-05-30] MEDS: ZINC GLUCONATE 50 MG TABLET GT (11:21)
[2025-05-30] MEDS: DEXTROSE 5%-WATER 1,000 ML 100 ML IV ×2 (11:22→21:06)
[2025-05-30] MEDS: LOPERAMIDE HCL 1 MG/7.5 ML 2 MG GT ×2 (11:31→22:44)
[2025-05-30] MEDS: HEPARIN SOD INJ 5000 UNIT/ML VIAL SC (21:07)
[2025-05-30 21:30] LABS: Sodium 141 mMol/L (136-145)
[2025-05-31] VITALS (8 sets, daily range): BP systolic 106–136; BP diastolic 48–85; PULSE 77–106; RESP 16–26; TEMP 36.4–37.4; O2SAT 96–99; BMI 19.5
[2025-05-31 05:21] LABS: Basophils # (Auto) 0.1 Thou/mm3 (0.0-0.2); Basophils % (Auto) 1 % (0-2.5); Eosinophils # (Auto) 0.4 Thou/mm3 (0.0-0.5); Eosinophils % (Auto) 6 % (0-10); Hematocrit 38.0 % (36.0-46.0); Hemoglobin 11.8 g/dL (12.0-16.0); Immature Granulocytes Auto 0.06 Thou/mm3 (0.00-0.00); Lymphocytes # (Auto) 0.8 Thou/mm3 (1.0-4.8); Lymphocytes % (Auto) 12 % (10-50); Mean Corpuscular HGB Conc 31.1 g/dl (31.0-37.0); Mean Corpuscular Hemoglobin 26.9 pg (25.0-35.0); Mean Corpuscular Volume 87 fL (80-100); Monocytes # (Auto) 0.4 Thou/mm3 (0.0-0.8); Monocytes % (Auto) 5 % (0-12); Neutrophils # (Auto) 5.3 Thou/mm3 (1.8-7.7); Neutrophils % (Auto) 76 % (37-80); Nucleated Red Blood Cell # 0.00 Thou/mm3 (0.00-0.00); Nucleated Red Blood Cell % 0 /100 WBC (0); Platelet Count 336 Thou/mm3 (140-440); RDW Standard Deviation 50.2 fL (36.4-46.3); Red Blood Count 4.39 Miln/mm3 (4.00-5.20); White Blood Count 6.9 Thou/mm3 (3.6-11.0)
[2025-05-31] MEDS: NYSTATIN PWD 15 GM BTL TOP ×3 (05:26→21:07)
[2025-05-31 05:43] LABS: Alanine Aminotransferase 22 U/L (10-49); Albumin, Serum 3.2 gm/dL (3.4-4.8); Albumin/Globulin Ratio 1.5 (1.2-2.2); Alkaline Phosphatase 82 U/L (46-116); Anion Gap 8 (7-16); Aspartate Amino Transferase 18 U/L (0-34); BUN/Creatinine Ratio 11 Ratio (12-20); Bilirubin,Total 0.2 mg/dL (0.3-1.2); Blood Urea Nitrogen 9 mg/dL (9-23); Calcium 8.6 mg/dL (8.3-10.6); Calcium (Corrected) 9.2 mg/dL (8.5-10.1); Carbon Dioxide 22.9 mMol/L (20.0-31.0); Chloride 111 mMol/L (98-107); Creatinine (Component) 0.8 mg/dL (0.6-1.3); Estimated Creatinine Clearance 35.7 mL/min (>60); Globulin 2.1 gm/dL (2.3-3.5); Glucose 107 mg/dL (74-106); Magnesium 1.8 mg/dL (1.6-2.6); Osmolality,Calculated 281 (275-295); Phosphorous 2.4 mg/dL (2.4-5.1); Potassium 3.7 mMol/L (3.4-5.1); Sodium 142 mMol/L (136-145); Total Protein 5.3 gm/dL (5.7-8.2); eGFR > 60 See Note
--- NOTE | 2025-05-31 07:24 | ESPR_ITS ---
<Statement entered by Darnell Rodgers MD - 06/01/25 04:46> Patient was seen and examined at bedside. I agree on the assessment and plan on this note as documented by resident Vicky Beal MD PGY1. 85-year-old female with past medical history as below, patient had fever overnight which resolved without any intervention, would repeat blood cultures today, but hold off on initiating antibiotics for now. Patient was started on loperamide 2 mg 3 times daily which will be discontinued as there is still suspicion of some infectious etiology. Will consider ordering stool electrolytes to assess stool osmotic In AM. Patient otherwise stable, seems more alert than previously, requiring free water flushes at 60 cc/h to compensate for GI losses to maintain electrolytes, tube feeds were optimized by dietitian. Will obtain GI consult for further recommendations. Case discussed with attending Dr. Miles Del Real, DO Darnell Rodgers MD PGY-2 Documentation for date of: 05/31/25 Subjective Subjective Interval history: Overnight sodium decreased from 146 to 141, D5W was held. Patient was febrile once overnight at 100.8. Antibiotics were stopped yesterday. Still had 8BM being on loperamide 2mg scheduled TID. Patient was seen and examined by bedside. Seemed more alert compared to yesterday. Comfortable, in 2-point soft restraint, no hand mittens. Per [facility], patient was on Fibersource for tubefeed and started having diarrhea since 05/[address] Montes was consulted, appreciate recs. Exam Vital Signs Temp Pulse Resp BP Pulse Ox O2 Del Method 99.4 F 99 20 123/85 H 96 Room Air 05/31/25 04:00 05/31/25 04:00 05/31/25 04:00 05/31/25 04:00 05/31/25 04:00 05/31/25 04:00 Narrative Exam GENERAL APPEARANCE: AOx1, cachectic, agitated, in 2-point soft restraint HEENT: Normocephalic atraumatic, no facial trauma, neck is supple. Lids/conjunctiva normal. Mucous membranes moist, nares normal, lips/teeth normal uvula midline without oral pharyngeal erythema, exudate or swelling TMs normal bilaterally. No lymphangitis/lymphedema. CARDIAC: Irregularly irregular rhythm. S1+S2 heard. No murmurs, rubs, or gallops noted RESPIRATORY: Increase respiratory effort, bilateral rhonchi ABDOMINAL: NBS. Soft, ND/NT. No evidence of fluid wave. No pulsatile masses on exam, rebound tenderness, Edwards sign or pain over Mcburney's point. MUSCLES/EXTREMITIES: Withdrawing upper and lower extremities DERM: Warm, pink and dry. Echymosis observed on upper extremities bilaterally, likely due to repeat IV access NEUROLOGICAL: Unable to access due to baseline dementia and patient's inability to follow command. PSYCH: Fidgety Renal: No CVA tenderness Objective Labs 05/31/25 04:57 05/31/25 04:57 Labs: Laboratory Results - last 24 hr 05/30/25 05/31/25 21:04 04:57 WBC 6.9 RBC 4.39 Hgb 11.8 L Hct 38.0 MCV 87 MCH 26.9 MCHC 31.1 RDW Std Deviation 50.2 H Plt Count 336 D Neut % (Auto) 76 Lymph % (Auto) 12 [place] % (Auto) 5 Eos % (Auto) 6 Baso % (Auto) 1 Neut # (Auto) 5.3 Lymph # (Auto) 0.8 L [place] # (Auto) 0.4 Eos # (Auto) 0.4 Baso # (Auto) 0.1 Immature Gran # (Auto) 0.06 H Absolute Nucleated RBC 0.00 Immature Gran % 1 H Nucleated RBC % 0 Sodium 141 142 Potassium 3.7 Chloride 111 H Carbon Dioxide 22.9 Anion Gap 8 BUN 9 Creatinine 0.8 Estim Creat Clear Calc 35.7 L eGFR > 60 BUN/Creatinine Ratio 11 L Glucose 107 H Calculated Osmolality 281 Calcium 8.6 Corrected Calcium 9.2 Phosphorus 2.4 Magnesium 1.8 Total Bilirubin 0.2 L AST 18 ALT 22 Alkaline Phosphatase 82 Total Protein 5.3 L Albumin 3.2 L Globulin 2.1 L Albumin/Globulin Ratio 1.5 ABG Interpretation ABG results: 05/26/25 20:16 VBG pH 7.41 VBG pCO2 34 L VBG pO2 30 VBG Base Excess -3 Quality Measures Quality Measures sepsis Current suspected stage: sepsis Possible source: pulmonary and genitourinary Blood cultures ordered: yes Antibiotic ordered: Yes Advance care planning discussed with:: spouse Assessment & Plan Assessment Current Active Medications: Generic Name Dose Route Start Last Admin Trade Name Freq PRN Reason Stop Dose Admin Acetaminophen 650 mg 05/26/25 01:32 Acetaminophen 325 Mg Tablet PO 06/25/25 01:31 Q6H PRN Fever >100.4 or pain 1-3 Hydrocodone Bitart/Acetaminophen 1 tab 05/30/25 10:12 Hydrocodone/Apap 5/325 Tablet GT 06/03/25 01:37 Q4HR PRN PAIN SCALE 4-10(Mod-Sev Dextrose 25 ml 05/26/25 05:05 Dextrose 50%-Water Inj 50 Ml Syringe IV 06/25/25 05:04 Q15MIN PRN BG 50-70 responsive npo pt Dextrose 50 ml 05/26/25 05:05 Dextrose 50%-Water Inj 50 Ml Syringe IV 06/25/25 05:04 Q15MIN PRN BG <50 OR BG <70 & pt unresponsive Glucagon 1 mg 05/26/25 05:05 Glucagon Inj 1 Mg Vial IM Q15MIN PRN BG <70, and no IV access Heparin Sodium (Porcine) 5,000 unit 05/26/25 09:00 05/30/25 21:07 Heparin Sod Inj 5000 Unit/Ml Vial SC 06/09/25 08:59 5,000 unit Q12HR [facility] Administration Dextrose 1,000 mls @ 100 mls/hr 05/30/25 10:15 05/30/25 22:43 D5w IV 06/29/25 10:14 0 mls/hr On Hold: 05/30/25 22:41 .Q10H [facility] Infusion Insulin Human Lispro 0 unit 05/26/25 12:00 05/31/25 05:24 Insulin Lispro (Admelog) 1 Unit/0.01 Ml Unit SC 06/25/25 11:59 Not Given Q6HR REPLACED BY [facility] Protocol Loperamide HCl 2 mg 05/30/25 11:15 05/31/25 05:34 Loperamide Hcl 1 Mg/7.5 Ml Ml GT 06/01/25 06:01 Not Given TID [facility] Midodrine 5 mg 05/29/25 13:23 Midodrine 5 Mg Tablet GT 06/26/25 05:06 Q6HR PRN SBP <90 Nystatin 0 gm 05/27/25 17:00 05/31/25 05:26 Nystatin Pwd 15 Gm Btl TOP 06/26/25 16:59 1 applicatio QID [facility] Administration Pantoprazole Sodium 40 mg 05/26/25 09:00 11/09/25 09:00 Pantoprazole Inj 40 Mg Vial IVP 06/25/25 08:59 40 mg QDAY [facility] Administration Potassium Phos/Sodium Phos 1 packet 05/30/25 09:00 05/30/25 21:07 Naph,[facility] 1 Packet (1.5 Gm) GT 05/31/25 09:01 1 packet BID [facility] Administration Zinc Gluconate 50 mg 05/30/25 10:30 05/30/25 11:21 Zinc Gluconate 50 Mg Tablet GT 06/29/25 10:29 50 mg QDAY [facility] Administration Plan #Diarrhea #Metabolic Acidosis (NAGMA) - resolved Started after admission, conincide with starting of new tube feed formula. Antibiotics only started recently, unlikely to cause diarrhea. Continue to have continuous diarrhea and hypotension leading to rapid response today. AG 9. NAGMA 2/2 acute diarrhea. 05/31: hemodynamically stable today, fe overnight x 1. Per [facility], patient was on Fibersource for tubefeed, had loose BM since 05/18 up until hospitalization. Stool test has been negative. Informed Dr. Montes, appreciate recs. Plan: -Continue loperamide 2mg TID. -Consulted GI, Dr. Montes, appreciate recs -Hold D5W 100cc/hr -Continue free water from 40cc/hr to 60cc/hr -Discontinue Zinc #Sepsis, sofa score greater than 2 #UTI #Community-acquired pneumonia likely secondary to gram-positive versus gram- negative organisms Patient presents from [facility] hypotensive 76/39 tachycardic HR 145 and febrile 101.2F. Nonverbal at baseline. Crackles auscultated in lungs. CXR bilateral perihilar RUL PNA. UA orange in color and turbid +2 protein +2 blood WBC 56 Bacteria +4. BP is responsive to fluids. Started Zosyn 3.375g for dual coverage of UTI and CAP. Last UTI 1 month ago positive E.coli, 2 months ago positive for Morganella morganii and Enterococcus faecium (grp d), 3 months ago positive for E. coli Cocci negative C. difficile stool toxin came back negative Blood culture 05/25 negative Patient was treated with Zosyn 3.375 g 3 times daily (05/26 -05/27) Plan: -Hold D5W 100cc/hr -Continue home midodrine 5mg every 6 hours as needed -MRSA negative, PRSA PNA unlikely, discontinue Vancomycin -Discontinue Ceftriaxone (05/28-06/04) and Azithromycin (05/28-05/31) #Hypernatremia - improving Na 151 initially, has been fluctuating up and down. Asymptomatic at the moment. On 05/31 NA 142 stable Plan: -Hold D5W 100cc/hr -Continue free water from 40cc/hr to 60cc/hr #Severe Protein Calorie Malnutrition #Severe Failure to Thrive Plan: -Currently on tube feed -Dietitian to follow #Anemia - resolved History of anemia, on iron at home. History of vaginal bleed. Per nurse, no vaginal bleed observed. Not on blood thinner. Hgb 6.2 05/27 and 10.1 status post 2u pRBC. No reported of melena, hemoptysis, hematemesis, hematochezia. Given continuous IVF, likely hemodilutional effect. However, in the current setting of sepsis and mutiple comorbodities, will transfuse blood. Plan: -Monitor daily labs #LU - Resolved At admission. BUN 45 Cr 1.3, improved, most likely due to physiologic volume depletion in setting of sepsis Plan: -Remain hydrated with oral and PPN route -Avoid nephrotoxic agents -Monitor renal panel daily #Transaminitis - Resolved At admission. Mild, AST 40 ALT 50 ALP 159, improving. Most likely due to volume depletion in setting of sepsis. Plan: -Monitor labs daily #Hx of diabetes Plan: -ISS -Glucose bedside checks ACHS -On tube feed #Hx of afib - Resolved Currently stable, not tachycardic. Med rec did not show Afib medications. Tachycardia upon admission likely due to sepsis. Plan: -Continue to monitor on tele #Goals of care Patient has repeat admissions (2 months ago, 1 month ago). Failure to thrive. Goal of care was discussed last admission, agreed to go comfort care but due to insurance conflict, patient remained full code to go to SNF. Spoke to , Code status changes to DNR/DNI as of 05/26 Health Maintenance: Code status: DNR/DNI DVT prophylaxis: Heparin GI prophylaxis: Protonix Diet: Tube feed Renteria: Yes Lines: PIV, PEG Supplemental O2: None Disposition: Tele bed Assessment and plan discussed with my attending physician Dr. Del Real and Dr. Rodgers (PGY-2). Dr. Beal (PGY-1) ? vice president of engineering Attending Provider Attestation/Addendum I have discussed and was present for the essential components of the history, physical examination, diagnosis, and treatment plan with the resident. I agree with the patient's care as documented by the resident and amended herein by me. Harrison Del Real, DO. Although this document has been carefully reviewed, there may still be some phonetic and other typographical errors. These errors are purely grammatical due to imperfections in the software program and should not be construed in any way to compromise the substance of the patient's medical care during this visit. Patient seen and evaluated this AM. In Short, patient is a 85-year-old female with significant past medical history of dementia, atrial fibrillation not on anticoagulation, ulcerative colitis, history of colon cancer status post PEG placement, who presented from [facility] for increased work of breathing, patient subsequently admitted for sepsis secondary to bilateral perihilar right upper lobe pneumonia with a sofa score greater than 2. It was also noted that the patient has had diarrhea for approximately 2 weeks, multiple loose stools a day per nursing facility which has been persistent during admission. Hypernatremia and hyperchloremia were also present but resolved today. The patient has completed a course of ceftriaxone and azithromycin for total of 5 days for pneumonia, we did not extend the course as we were concerned that the antibiotics may be worsening the patient's diarrhea. Patient still has had persistent copious loose, nonbloody stools. C. difficile testing was negative, PCR for Shiga toxin, Salmonella and Shigella were all negative. Patient is not on any laxatives however is on loperamide 2 mg via her G-tube 3 times daily which I think I am going to discontinue until infectious etiologies are ruled out. we will hold in additional abx for poss bacterial gastroenteritis for now. Gastroenterology has been consulted, appreciate recommendations. We did obtain a KUB which was unremarkable. The patient did have a recorded fever yesterday of 100.8, hence repeat blood cultures ordered and are pending. Initial blood cultures on admission were negative, urine culture was also negative. Differentials for the persistent diarrhea include infectious causes, may be parasitic hence ordered and O&P and Giardia although that is less likely. Other differentials incl jacey or postinfection IBS, microscopic colitis, or SIBO which we may consider a hydrogen breath test if we can do it. Thyroid function was normal, we could consider an endocrine cause as well that would be extremely rare. Will stop all nonessential GI meds. Tomorrow we will consider ordering stool electrolytes to assess the stool osmotic gap to help distinguish between secretory and osmotic diarrhea. Can discharge the patient back to SNF until the diarrhea starts improving. We did have a discussion with the patient's in regards to hospice care which was discussed in the past apparently however he wishes full care for now.
[2025-05-31] MEDS: NAPH,KPH MBDB 1 PACKET (1.5 GM) GT (08:50)
--- NOTE | 2025-05-31 08:55 | PC.SS ---
rounding note: Patient continues to have diarrhea. Consult for Dr. Montes- GI. Patient on i.v. fluids
[2025-05-31] MEDS: HEPARIN SOD INJ 5000 UNIT/ML VIAL SC ×2 (09:29→21:06)
[2025-05-31] MEDS: LOPERAMIDE HCL 1 MG/7.5 ML 2 MG GT (14:30)
--- NOTE | 2025-05-31 14:40 | XR_ITS ---
Examination: Abdomen AP single view Technique: AP portable supine abdomen, single view Exam date and time: May 31, 2025, 1802 hours INDICATIONS: Diarrhea abdominal pain this week FINDINGS: Mild to moderate colonic ileus No obstruction No free air Severe osteopenia with extensive thoracolumbar fusions Multiple surgical clips in the pelvis IMPRESSION: Nonobstructive bowel gas pattern
--- NOTE | 2025-05-31 14:41 | PD.RESCONSUL ---
HPI Data of Consult Consult date: 05/31/25 Requesting Physician: Miles Del Real DO Admitting Provider: Matthew Duke MD Attending Provider: Miles Del Real DO Primary Care Provider: Liam Mistry MD Consult Narrative Reason for consult: Multiple episodes of diarrhea History of present illness: The patient is an 85-year-old female with a history of dementia, paroxysmal atrial fibrillation, hypertension, diabetes, hyperlipidemia, ulcerative colitis, and prior colon cancer status post-PEG tube placement. She was brought in by ambulance from [facility] to [facility] on 04/25/2025 due to increased respiratory rate. She was admitted for sepsis, with suspected sources of infection including urinary tract infection or pneumonia. Gastroenterology was consulted for persistent diarrhea over the past 4-5 days. Due to the patient?s cognitive impairment and dementia, she is unable to reliably provide a history of her abdominal symptoms. Therefore, information was obtained from chart review, as well as communication with the nursing staff and primary team. Upon evaluation today, the patient continues to experience diarrhea despite being on loperamide 2 mg three times daily. Stool testing, including C. difficile, PCR for Campylobacter, Shiga toxin, Salmonella, and Shigella, have all returned negative, suggesting a likely non-infectious etiology for the diarrhea. The patient has a history of recent upper endoscopy on 03/26/2025, which revealed esophagitis in the lower third of the esophagus and gastritis. A colonoscopy performed on 03/30/2025 showed mucosal ulceration in the rectum and polyps in the transverse and descending colon, which were resected and retrieved. No other significant findings have been noted from prior gastrointestinal workups. cc:: cc: Miles Del Real DO Exam Vital Signs Temp Pulse Resp BP Pulse Ox O2 Del Method 98.0 F 91 23 H 115/60 97 Room Air 05/31/25 12:00 05/31/25 12:00 05/31/25 12:00 05/31/25 12:00 05/31/25 12:00 05/31/25 12:00 Narrative Exam GENERAL APPEARANCE: AOx1, cachectic, agitated, in 2-point soft restraint HEENT: Normocephalic atraumatic, no facial trauma, neck is supple. Lids/conjunctiva normal. Mucous membranes moist, nares normal, lips/teeth normal uvula midline without oral pharyngeal erythema, exudate or swelling TMs normal bilaterally. No lymphangitis/lymphedema. CARDIAC: Irregularly irregular rhythm. S1+S2 heard. No murmurs, rubs, or gallops noted RESPIRATORY: Increase respiratory effort, bilateral rhonchi ABDOMINAL: NBS. Soft, ND/NT. No evidence of fluid wave. No pulsatile masses on exam, rebound tenderness, Edwards sign or pain over Mcburney's point. MUSCLES/EXTREMITIES: Withdrawing upper and lower extremities DERM: Warm, pink and dry. Echymosis observed on upper extremities bilaterally, likely due to repeat IV access NEUROLOGICAL: Unable to access due to baseline dementia and patient's inability to follow command. PSYCH: Fidgety Renal: No CVA tenderness Results Labs 06/01/25 06:12 06/01/25 06:12 Labs: Short CBC 05/31/25 Range/Units 04:57 WBC 6.9 (3.6-11.0) Thou/mm3 Hgb 11.8 L (12.0-16.0) g/dL Hct 38.0 (36.0-46.0) % Plt Count 336 D (140-440) Thou/mm3 BMP 05/30/25 05/31/25 21:04 04:57 Sodium 141 142 Potassium 3.7 Chloride 111 H Carbon Dioxide 22.9 BUN 9 Creatinine 0.8 Glucose 107 H Calcium 8.6 Liver Function 05/31/25 Range/Units 04:57 Total Bilirubin 0.2 L (0.3-1.2) mg/dL AST 18 (0-34) U/L ALT 22 (10-49) U/L Alkaline Phosphatase 82 (46-116) U/L Albumin 3.2 L (3.4-4.8) gm/dL ABG Interpretation ABG results: 05/26/25 20:16 VBG pH 7.41 VBG pCO2 34 L VBG pO2 30 VBG Base Excess -3 Quality Measures Quality Measures sepsis Current suspected stage: ruled out Possible source: pulmonary and genitourinary Blood cultures ordered: yes Antibiotic ordered: No Advance care planning discussed with:: other Medications Home Medications and Allergies Home Medications ?Medication ?Instructions ?Recorded ?Confirmed ?Type ferrous sulfate 325 mg (65 mg 325 mg feeding tube QDAY 03/24/25 05/26/25 History iron) tablet (Gil-Time) ascorbic acid (vitamin C) 500 mg 500 mg feeding tube QDAY 05/26/25 05/26/25 History chewable tablet (Acerola C) ferrous sulfate 220 mg (44 mg 22 mg feeding tube QDAY 05/26/25 05/26/25 History iron)/5 mL oral elixir megestrol 400 mg/10 mL (10 mL) 400 mg feeding tube QDAY 05/26/25 05/26/25 History oral suspension midodrine 5 mg tablet 5 mg feeding tube [id number] 05/26/25 05/26/25 History pantoprazole 40 mg granules 40 mg feeding tube QDAY 05/26/25 05/26/25 History delayed-release for susp in packet silver sulfadiazine 1 % topical 1 applic topical QDAY 05/26/25 05/26/25 History cream (Silvadene) Allergies Allergy/AdvReac Type Severity Reaction Status Date / Time No Known Allergies Allergy Verified 04/11/25 03:33 Visit Medications Acetaminophen (Acetaminophen 325 Mg Tablet) 650 mg PO Q6H PRN PRN Reason: Fever >100.4 or pain 1-3 Stop: 06/25/25 01:31 Hydrocodone Bitart/Acetaminophen (Hydrocodone/Apap 5/325 Tablet) 1 tab GT Q4HR PRN PRN Reason: PAIN SCALE 4-10(Mod-Sev Stop: 06/03/25 01:37 Dextrose (Dextrose 50%-Water Inj 50 Ml Syringe) 25 ml IV Q15MIN PRN PRN Reason: BG 50-70 responsive npo pt Stop: 06/25/25 05:04 Dextrose (Dextrose 50%-Water Inj 50 Ml Syringe) 50 ml IV Q15MIN PRN PRN Reason: BG <50 OR BG <70 & pt unresponsive Stop: 06/25/25 05:04 Glucagon (Glucagon Inj 1 Mg Vial) 1 mg IM Q15MIN PRN PRN Reason: BG <70, and no IV access Heparin Sodium (Porcine) (Heparin Sod Inj 5000 Unit/Ml Vial) 5,000 unit SC Q12HR [facility] Stop: 06/09/25 08:59 Last Admin: 05/31/25 09:29 Dose: 5,000 unit Dextrose (D5w) 1,000 mls @ 100 mls/hr IV .Q10H [facility] On Hold: 05/30/25 22:41 Stop: 06/29/25 10:14 Last Infusion: 05/30/25 22:43 Dose: 0 mls/hr Insulin Human Lispro (Insulin Lispro (Admelog) 1 Unit/0.01 Ml Unit) 0 unit SC Q6HR [facility]; Protocol Stop: 06/25/25 11:59 Last Admin: 05/31/25 13:31 Dose: Not Given Loperamide HCl (Loperamide Hcl 1 Mg/7.5 Ml Ml) 2 mg GT TID [facility] Stop: 06/01/25 06:01 Last Admin: 05/31/25 05:34 Dose: Not Given Midodrine (Midodrine 5 Mg Tablet) 5 mg GT Q6HR PRN PRN Reason: SBP <90 Stop: 06/26/25 05:06 Nystatin (Nystatin Pwd 15 Gm Btl) 0 gm TOP QID [facility] Stop: 06/26/25 16:59 Last Admin: 05/31/25 12:14 Dose: 1 applicatio Pantoprazole Sodium (Pantoprazole Inj 40 Mg Vial) 40 mg IVP QDAY [facility] Stop: 06/25/25 08:59 Last Admin: 05/31/25 09:32 Dose: 40 mg Discontinued Medications Hydrocodone Bitart/Acetaminophen (Hydrocodone/Apap 5/325 Tablet) 1 tab PO Q4HR PRN PRN Reason: PAIN SCALE 4-6 (Moderate Stop: 05/31/25 01:37 Docusate Sodium (Docusate Sod 100 Mg Capsule) 100 mg PO QDAY [facility]; Protocol Stop: 06/25/25 08:59 Last Admin: 05/29/25 08:40 Dose: Not Given Docusate Sodium (Docusate Sod Liqd 100 Mg/10 Ml Udc) 100 mg GT QDAY [facility]; Protocol Stop: 06/29/25 08:59 Last Admin: 05/30/25 08:58 Dose: Not Given Ceftriaxone Sodium/Dextrose (Rocephin/D5w 1gm Iv Premix) 1 gm in 50 mls @ 100 mls/hr IV X1 ONE Stop: 05/25/25 23:25 Last Infusion: 05/25/25 23:49 Dose: Infused Lactated Ringer's (Lactated Ringers) 1,000 mls @ 999 mls/hr IV .Q1H1M ONE Stop: 05/26/25 00:41 Last Infusion: 05/26/25 01:16 Dose: Infused Lactated Ringer's (Lactated Ringers) 1,000 mls @ 999 mls/hr IV .Q1H1M ONE Stop: 05/26/25 01:14 Last Infusion: 05/26/25 03:25 Dose: Infused Piperacillin Sod/Tazobactam (Sod 4.5 gm/ Sodium Chloride) 100 mls @ 200 mls/hr IV X1 ONE; Protocol Stop: 05/26/25 00:45 Last Infusion: 05/26/25 02:17 Dose: Infused Vancomycin HCl 1,000 mg/ (Sodium Chloride) 250 mls @ 120 mls/hr IV X1 ONE Stop: 05/26/25 02:34 Last Infusion: 05/26/25 02:20 Dose: 120 mls/hr Dextrose/Sodium Chloride (D5-1/2ns) 1,000 mls @ 60 mls/hr IV .[id number] [facility] Stop: 06/25/25 01:44 Last Admin: 05/26/25 02:48 Dose: 60 mls/hr Piperacillin/Tazobactam/Dextrose (Zosyn) 3.375 gm in 50 mls @ 100 mls/hr IV Q8HR [facility]; Protocol Stop: 06/02/25 06:14 Last Admin: 05/28/25 06:31 Dose: 100 mls/hr Dextrose/Sodium Chloride (D5-1/2ns) 1,000 mls @ 75 mls/hr IV .[id number] [facility] Stop: 06/25/25 05:44 Last Admin: 05/26/25 18:38 Dose: 75 mls/hr Lactated Ringer's (Lactated Ringers) 500 mls @ 999 mls/hr IV .Q31M ONE Stop: 05/26/25 15:56 Last Admin: 05/26/25 15:31 Dose: 999 mls/hr Lactated Ringer's (Lactated Ringers) 500 mls @ 999 mls/hr IV .Q31M ONE Stop: 05/26/25 18:50 Last Admin: 05/26/25 18:34 Dose: 999 mls/hr Dextrose (D5w) 1,000 mls @ 75 mls/hr IV .[id number] [facility] Stop: 05/27/25 10:15 Last Infusion: 05/27/25 00:40 Dose: 75 mls/hr Albumin Human (Albuminex 25% Ivpb) 25 gm in 100 mls @ 100 mls/hr IV X1 ONE Stop: 05/27/25 05:50 Last Admin: 05/27/25 05:19 Dose: 100 mls/hr Lactated Ringer's (Lactated Ringers) 250 mls @ 999 mls/hr IV .Q16M ONE Stop: 05/27/25 05:07 Last Admin: 05/27/25 05:19 Dose: 999 mls/hr Lactated Ringer's (Lactated Ringers) 250 mls @ 999 mls/hr IV .Q16M ONE Stop: 05/27/25 06:31 Last Admin: 05/27/25 06:26 Dose: 999 mls/hr Dextrose (D5w) 1,000 mls @ 100 mls/hr IV .Q10H [facility] Stop: 05/27/25 16:20 Last Admin: 05/27/25 06:41 Dose: 100 mls/hr Vancomycin/Sodium Chloride (Vancomycin/Ns 750 Mg Ivpb) 750 mg in 150 mls @ 150 mls/hr IV DAILY [facility] Stop: 06/03/25 08:59 Last Admin: 05/27/25 09:21 Dose: 150 mls/hr Sodium Chloride (Ns) 1,000 mls @ 999 mls/hr IV .Q1H1M ONE Stop: 05/28/25 07:50 Last Admin: 05/28/25 07:03 Dose: 999 mls/hr Vancomycin/Sodium Chloride (Vancomycin/Ns 1 Gm Ivpb) 200 mls @ 120 mls/hr IV Q24H [facility] Stop: 06/04/25 09:59 Last Admin: 05/28/25 09:40 Dose: 120 mls/hr Ceftriaxone Sodium/Dextrose (Rocephin/D5w 1gm Iv Premix) 1 gm in 50 mls @ 100 mls/hr IV QDAY [facility] Stop: 06/04/25 11:58 Last Infusion: 05/30/25 23:10 Dose: Infused Azithromycin 500 mg/ Sodium (Chloride) 250 mls @ 250 mls/hr IV QDAY [facility] Stop: 05/31/25 11:59 Last Infusion: 05/30/25 23:11 Dose: Infused Dextrose/Sodium Chloride (D5-1/2ns) 1,000 mls @ 125 mls/hr IV .Q8H [facility] Stop: 05/29/25 08:18 Last Admin: 05/29/25 02:21 Dose: 125 mls/hr Dextrose/Sodium Chloride (D5-Ns) 1,000 mls @ 125 mls/hr IV .Q8H [facility] Stop: 05/30/25 09:59 Last Infusion: 05/30/25 23:10 Dose: Infused Insulin Human Lispro (Insulin Lispro (Admelog) 1 Unit/0.01 Ml Unit) 0 unit SC [facility]; Protocol Stop: 06/25/25 07:29 Last Admin: 05/26/25 07:50 Dose: Not Given Loperamide HCl (Loperamide 2 Mg Capsule) 2 mg PO Q6HR PRN PRN Reason: DIARRHEA Stop: 06/03/25 11:47 Last Admin: 05/27/25 17:38 Dose: 2 mg Loperamide HCl (Loperamide 2 Mg Capsule) 2 mg PO Q6HR PRN PRN Reason: DIARRHEA Stop: 06/05/25 18:23 Last Admin: 05/30/25 00:06 Dose: 2 mg Loperamide HCl (Loperamide 2 Mg Capsule) 2 mg GT TID [facility] Stop: 06/06/25 10:59 Last Admin: 05/30/25 12:04 Dose: Not Given Midodrine (Midodrine 5 Mg Tablet) 5 mg GT [id number] [facility] Stop: 06/26/25 04:59 Midodrine (Midodrine 5 Mg Tablet) 5 mg GT Q6HR PRN PRN Reason: SBP <90 Stop: 06/26/25 05:06 Last Admin: 05/27/25 05:19 Dose: 5 mg Morphine Sulfate (Morphine Sulf Inj 4 Mg/Ml Vial) 2 mg IVP Q4HR PRN PRN Reason: PAIN SCALE 7-10 (Severe Stop: 05/31/25 01:37 Pharmacy Consult (Vancomycin Pharmacy To Dose 1 Each Each) 1 each IV QDAY PRN PRN Reason: PROTOCOL Stop: 06/25/25 08:59 Potassium Phos/Sodium Phos (Naph,[facility] 1 Packet (1.5 Gm)) 1 packet GT BID [facility] Stop: 05/31/25 09:01 Last Admin: 05/31/25 08:50 Dose: 1 packet Zinc Gluconate (Zinc Gluconate 50 Mg Tablet) 50 mg GT QDAY [facility] Stop: 06/29/25 10:29 Last Admin: 05/31/25 10:46 Dose: Not Given Zinc Sulfate (Zinc Sulfate 220 Mg Capsule) 220 mg GT QDAY [facility] Stop: 06/28/25 08:59 Last Admin: 05/30/25 08:58 Dose: Not Given Assessment & Plan Plan The patient is an 85-year-old female with a history of dementia, paroxysmal atrial fibrillation, hypertension, diabetes, hyperlipidemia, ulcerative colitis, and prior colon cancer status post-PEG tube placement was admitted for sepsis, with suspected sources of infection including urinary tract infection or pneumonia. Acute diarrhea Hx of Rectal ulcer Hx of Ulcerative colitis DDX: Microscopic colitis VS IBD VS IBS vs infectious enterocolitis Unable to obtain history from the patient due to mentation however from patient clinical presentation findings she is afebrile, no leukocytosis, abdominal soft and nondistended on the examination low suspicion for infectious enterocolitis. Stool testing, including C. difficile, PCR for Campylobacter, Shiga toxin, Salmonella, and Shigella, have all returned negative, suggesting a likely non-infectious etiology for the diarrhea. EGD on 03/26/2025, which revealed esophagitis in the lower third of the esophagus and gastritis. Colonoscopy performed on 03/30/2025 showed mucosal ulceration in the rectum and multiple colonic polyps endoscopically removed - KUB ordered for diarrhea workup Attending Provider Attestation/Addendum Patient personally examined by me I went over the laboratory data as well as the imaging studies Case discussed in detail with the internal medicine resident I have known this patient from before requiring PEG placement for failure to thrive and a colonoscopy earlier on 03/31/2025 which showed removal of a tubular adenoma from the transverse colon as well as tubular adenoma from the descending colon There is no evidence of any obvious inflammatory bowel disease or infectious enterocolitis at that time We will get a KUB for the workup of the diarrhea Depending upon the results we will formulate a treatment plan order further recommendations from a GI viewpoint Thank you very much for the opportunity to participate in the care of this patient
[2025-05-31 20:50] LABS: C-Reactive Protein 3.4 mg/dL (0.0-0.9)
[2025-06-01] VITALS: BP 116/57; PULSE 71; PULSE 87; RESP 16; TEMP 37.6; O2SAT 97
[2025-06-01 04:00] VITALS: BP 119/54; PULSE 70; PULSE 77; RESP 19; TEMP 37.6; O2SAT 98
[2025-06-01 04:44] VITALS: BMI 19.5
[2025-06-01 06:26] LABS: Basophils # (Auto) 0.1 Thou/mm3 (0.0-0.2); Basophils % (Auto) 1 % (0-2.5); Eosinophils # (Auto) 0.4 Thou/mm3 (0.0-0.5); Eosinophils % (Auto) 7 % (0-10); Hematocrit 33.9 % (36.0-46.0); Hemoglobin 10.6 g/dL (12.0-16.0); Immature Granulocytes Auto 0.06 Thou/mm3 (0.00-0.00); Lymphocytes # (Auto) 0.8 Thou/mm3 (1.0-4.8); Lymphocytes % (Auto) 15 % (10-50); Mean Corpuscular HGB Conc 31.3 g/dl (31.0-37.0); Mean Corpuscular Hemoglobin 27.0 pg (25.0-35.0); Mean Corpuscular Volume 87 fL (80-100); Monocytes # (Auto) 0.4 Thou/mm3 (0.0-0.8); Monocytes % (Auto) 7 % (0-12); Neutrophils # (Auto) 3.7 Thou/mm3 (1.8-7.7); Neutrophils % (Auto) 68 % (37-80); Nucleated Red Blood Cell # 0.00 Thou/mm3 (0.00-0.00); Nucleated Red Blood Cell % 0 /100 WBC (0); Platelet Count 362 Thou/mm3 (140-440); RDW Standard Deviation 50.0 fL (36.4-46.3); Red Blood Count 3.92 Miln/mm3 (4.00-5.20); White Blood Count 5.5 Thou/mm3 (3.6-11.0)
[2025-06-01 06:47] LABS: Alanine Aminotransferase 18 U/L (10-49); Albumin, Serum 3.0 gm/dL (3.4-4.8); Albumin/Globulin Ratio 1.7 (1.2-2.2); Alkaline Phosphatase 73 U/L (46-116); Anion Gap 9 (7-16); Aspartate Amino Transferase 17 U/L (0-34); BUN/Creatinine Ratio 12 Ratio (12-20); Bilirubin,Total 0.2 mg/dL (0.3-1.2); Blood Urea Nitrogen 11 mg/dL (9-23); Calcium 8.7 mg/dL (8.3-10.6); Calcium (Corrected) 9.5 mg/dL (8.5-10.1); Carbon Dioxide 25.5 mMol/L (20.0-31.0); Chloride 110 mMol/L (98-107); Creatinine (Component) 0.9 mg/dL (0.6-1.3); Estimated Creatinine Clearance 31.7 mL/min (>60); Globulin 1.8 gm/dL (2.3-3.5); Glucose 85 mg/dL (74-106); Magnesium 1.8 mg/dL (1.6-2.6); Osmolality,Calculated 285 (275-295); Phosphorous 3.4 mg/dL (2.4-5.1); Potassium 4.5 mMol/L (3.4-5.1); Sodium 144 mMol/L (136-145); Total Protein 4.8 gm/dL (5.7-8.2); eGFR > 60 See Note
--- NOTE | 2025-06-01 07:27 | ESPR_ITS ---
<Statement entered by Timbo Meadows MD - 06/02/25 13:34> Patient seen and examined at bedside. I discussed and supervised with the network internship physician who took care of this patient. I personally saw and examined the patient. I agree with most of the assessment and plan. Plan of care discussed with attending Dr. Morales. Timbo Meadows MD PGY-2 Documentation for date of: 06/01/25 Subjective Subjective Interval history: No acute event overnight. Patient continued to have 6 bowel movements overnight. Loperamide was discontinued yesterday due to patient spiking fever the day before. GI consulted, appreciate recs. KUB 05/31 showed mild to moderate colonic ileus, nonobstructive bowel gas pattern. Patient is not on any restraint today. Left arm showed some new skin tears. Nurse reported stool amount is still insufficient for stool sample. Sodium is stable today. Ordered stool electrolytes today. Pending repeat blood culture, stool calprotectin, Giardia, ova and parasite, stool WBC Exam Vital Signs Temp Pulse Resp BP Pulse Ox O2 Del Method 99.6 F 77 19 119/54 L 98 Room Air 06/01/25 04:00 06/01/25 04:00 06/01/25 04:00 06/01/25 04:00 06/01/25 04:00 06/01/25 04:00 Narrative Exam GENERAL APPEARANCE: AOx1, cachectic, comfortable, not in acute distress HEENT: Normocephalic atraumatic, no facial trauma, neck is supple. Lids/conjunctiva normal. Mucous membranes moist, nares normal, lips/teeth normal uvula midline without oral pharyngeal erythema, exudate or swelling TMs normal bilaterally. No lymphangitis/lymphedema. CARDIAC: Regular rate and rhythm. S1+S2 heard. No murmurs, rubs, or gallops noted RESPIRATORY: Increase respiratory effort, bilateral rhonchi ABDOMINAL: NBS. Soft, ND/NT. No evidence of fluid wave. No pulsatile masses on exam, rebound tenderness, Edwards sign or pain over Mcburney's point. MUSCLES/EXTREMITIES: Withdrawing upper and lower extremities DERM: Warm, pink and dry. Echymosis observed on upper extremities bilaterally, likely due to repeat IV access. Left arm skin tears NEUROLOGICAL: Unable to access due to baseline dementia and patient's inability to follow command. PSYCH: Fidgety Renal: No CVA tenderness Objective Labs 06/02/25 04:07 06/02/25 04:07 Labs: Laboratory Results - last 24 hr 05/31/25 06/01/25 04:57 06:12 WBC 5.5 RBC 3.92 L Hgb 10.6 L Hct 33.9 L MCV 87 MCH 27.0 MCHC 31.3 RDW Std Deviation 50.0 H Plt Count 362 Neut % (Auto) 68 Lymph % (Auto) 15 [place] % (Auto) 7 Eos % (Auto) 7 Baso % (Auto) 1 Neut # (Auto) 3.7 Lymph # (Auto) 0.8 L [place] # (Auto) 0.4 Eos # (Auto) 0.4 Baso # (Auto) 0.1 Immature Gran # (Auto) 0.06 H Absolute Nucleated RBC 0.00 Immature Gran % 1 H Nucleated RBC % 0 Sodium 144 Potassium 4.5 D Chloride 110 H Carbon Dioxide 25.5 Anion Gap 9 BUN 11 Creatinine 0.9 Estim Creat Clear Calc 31.7 L eGFR > 60 BUN/Creatinine Ratio 12 Glucose 85 Calculated Osmolality 285 Calcium 8.7 Corrected Calcium 9.5 Phosphorus 3.4 Magnesium 1.8 Total Bilirubin 0.2 L AST 17 ALT 18 Alkaline Phosphatase 73 C-Reactive Prot, Quant 3.4 H Total Protein 4.8 L Albumin 3.0 L Globulin 1.8 L Albumin/Globulin Ratio 1.7 ABG Interpretation ABG results: 05/26/25 20:16 VBG pH 7.41 VBG pCO2 34 L VBG pO2 30 VBG Base Excess -3 Quality Measures Quality Measures VTE prophylaxis and sepsis Current suspected stage: sepsis Possible source: pulmonary and genitourinary Blood cultures ordered: yes Antibiotic ordered: Yes Advance care planning discussed with:: patient and spouse Assessment & Plan Assessment Current Active Medications: Generic Name Dose Route Start Last Admin Trade Name Freq PRN Reason Stop Dose Admin Acetaminophen 650 mg 05/26/25 01:32 Acetaminophen 325 Mg Tablet PO 06/25/25 01:31 Q6H PRN Fever >100.4 or pain 1-3 Hydrocodone Bitart/Acetaminophen 1 tab 05/30/25 10:12 Hydrocodone/Apap 5/325 Tablet GT 06/03/25 01:37 Q4HR PRN PAIN SCALE 4-10(Mod-Sev Dextrose 25 ml 05/26/25 05:05 Dextrose 50%-Water Inj 50 Ml Syringe IV 06/25/25 05:04 Q15MIN PRN BG 50-70 responsive npo pt Dextrose 50 ml 05/26/25 05:05 Dextrose 50%-Water Inj 50 Ml Syringe IV 06/25/25 05:04 Q15MIN PRN BG <50 OR BG <70 & pt unresponsive Glucagon 1 mg 05/26/25 05:05 Glucagon Inj 1 Mg Vial IM Q15MIN PRN BG <70, and no IV access Heparin Sodium (Porcine) 5,000 unit 05/26/25 09:00 05/31/25 21:06 Heparin Sod Inj 5000 Unit/Ml Vial SC 06/09/25 08:59 5,000 unit Q12HR [facility] Administration Insulin Human Lispro 0 unit 05/26/25 12:00 06/01/25 06:27 Insulin Lispro (Admelog) 1 Unit/0.01 Ml Unit SC 06/25/25 11:59 Not Given Q6HR [facility] Protocol Midodrine 5 mg 05/29/25 13:23 Midodrine 5 Mg Tablet GT 06/26/25 05:06 Q6HR PRN SBP <90 Nystatin 0 gm 05/27/25 17:00 06/01/25 06:28 Nystatin Pwd 15 Gm Btl TOP 06/26/25 16:59 Not Given QID [facility] Pantoprazole Sodium 40 mg 05/26/25 09:00 05/31/25 09:32 Pantoprazole Inj 40 Mg Vial IVP 06/25/25 08:59 40 mg QDAY [facility] Administration Plan #Diarrhea #Metabolic Acidosis (NAGMA) - resolved Started after admission, conincide with starting of new tube feed formula. Antibiotics only started recently, unlikely to cause diarrhea. Continue to have continuous diarrhea and hypotension leading to rapid response today. AG 9. NAGMA 2/2 acute diarrhea. Per [facility], patient was on Fibersource for tubefeed, had loose BM since 05/18 up until hospitalization. Stool test has been negative. 06/01: Continue to have 6 BM last 24hrs. Not currently on any antibiotics. KUB ordered by GI negative. Appreciate further recommendations from GI. Plan: -Order stool electrolyte to evaluate secretory vs. osmotis diarrhea -Discontinue loperamide 2mg TID. -Consulted GI, Dr. Montes, appreciate recs -Discontinue D5W 100cc/hr -Continue free water 60cc/hr -Pending repeat blood culture, stool calprotectin, Giardia, ova and parasite, stool WBC #Sepsis, sofa score greater than 2 #UTI #Community-acquired pneumonia likely secondary to gram-positive versus gram- negative organisms Patient [facility] hypotensive 76/39 tachycardic HR 145 and febrile 101.2F. Nonverbal at baseline. Crackles auscultated in lungs. CXR bilateral perihilar RUL PNA. UA orange in color and turbid +2 protein +2 blood WBC 56 Bacteria +4. BP is responsive to fluids. Started Zosyn 3.375g for dual coverage of UTI and CAP. Last UTI 1 month ago positive E.coli, 2 months ago positive for Morganella morganii and Enterococcus faecium (grp d), 3 months ago positive for E. coli Cocci negative C. difficile stool toxin came back negative Blood culture 05/25 negative Patient was treated with Zosyn 3.375 g 3 times daily (05/26 -05/27) Plan: -Continue home midodrine 5mg every 6 hours as needed -MRSA negative, PRSA PNA unlikely, discontinue Vancomycin -Discontinue Ceftriaxone (05/28-06/04) and Azithromycin (05/28-05/31) -Pending repeat blood culture, stool calprotectin, Giardia, ova and parasite, stool WBC #Hypernatremia - improving Na 151 initially, has been fluctuating up and down. Asymptomatic at the moment. On 06/01 NA 144 stable Plan: -Hold D5W 100cc/hr -Continue free water 60cc/hr #Severe Protein Calorie Malnutrition #Severe Failure to Thrive Plan: -Currently on tube feed -Dietitian to follow #Anemia - resolved History of anemia, on iron at home. History of vaginal bleed. Per nurse, no vaginal bleed observed. Not on blood thinner. Hgb 6.2 05/27 and 10.1 status post 2u pRBC. No reported of melena, hemoptysis, hematemesis, hematochezia. Given continuous IVF, likely hemodilutional effect. However, in the current setting of sepsis and mutiple comorbodities, will transfuse blood. Plan: -Monitor daily labs #LU - Resolved At admission. BUN 45 Cr 1.3, improved, most likely due to physiologic volume depletion in setting of sepsis Plan: -Remain hydrated with oral and PPN route -Avoid nephrotoxic agents -Monitor renal panel daily #Transaminitis - Resolved At admission. Mild, AST 40 ALT 50 ALP 159, improving. Most likely due to volume depletion in setting of sepsis. Plan: -Monitor labs daily #Hx of diabetes Plan: -ISS -Glucose bedside checks ACHS -On tube feed #Hx of afib - Resolved Currently stable, not tachycardic. Med rec did not show Afib medications. Tachycardia upon admission likely due to sepsis. Plan: -Continue to monitor on tele #Goals of care Patient has repeat admissions (2 months ago, 1 month ago). Failure to thrive. Goal of care was discussed last admission, agreed to go comfort care but due to insurance conflict, patient remained full code to go to SNF. Spoke to , Code status changes to DNR/DNI as of 05/26 Health Maintenance: Code status: DNR/DNI DVT prophylaxis: Heparin GI prophylaxis: Protonix Diet: Tube feed Renteria: Yes Lines: PIV, PEG Supplemental O2: None Disposition: Tele bed Assessment and plan discussed with my attending physician Dr. Morales and Dr. Meadows (PGY-2). Dr. Beal (PGY-1) ? regional vice president surgical sales Attending Provider Attestation/Addendum I have seen and examined the patient. I was physically present for the abbott portions of the services provided including history, physical exam, diagnosis, treatment plans and orders. I agree with assessment and plan of care as documented by residents. Even though this this note was carefully revised there may still be minor errors in director of employer services due to voice recognition software. Osito Morales MD
[2025-06-01 08:00] VITALS: BP 90/54; PULSE 88; PULSE 89; RESP 24; TEMP 36.6; O2SAT 97
[2025-06-01] MEDS: HEPARIN SOD INJ 5000 UNIT/ML VIAL SC ×2 (08:43→20:06)
[2025-06-01 12:00] VITALS: BP 117/55; PULSE 78; PULSE 81; RESP 17; TEMP 37; O2SAT 97
[2025-06-01 15:20] VITALS: BMI 19.5
--- NOTE | 2025-06-01 15:42 | PC.SS ---
Update: Patient is off restraints. Still in possession of diarrhea.
[2025-06-01 16:00] VITALS: BP 105/55; PULSE 78; PULSE 85; RESP 26; TEMP 36.4; O2SAT 97
[2025-06-01] MEDS: NYSTATIN PWD 15 GM BTL TOP ×2 (17:16→20:06)
--- NOTE | 2025-06-01 18:00 | ESPR_ITS ---
Documentation for date of: 06/01/25 Subjective Subjective Interval history: Stool culture and sensitivity negative Stool for Campylobacter Shigella Salmonella by PCR all negative Stool C. difficile is negative KUB shows colonic ileus Patient had 6 bowel movements yesterday Loperamide was discontinued because of patient spiking a temperature Exam Vital Signs Temp Pulse Resp BP Pulse Ox O2 Del Method 97.5 F 85 26 H 105/55 L 97 Room Air 06/01/25 16:00 06/01/25 16:00 06/01/25 16:00 06/01/25 16:00 06/01/25 16:00 06/01/25 16:00 Objective Labs 06/01/25 06:12 06/01/25 06:12 Labs: Laboratory Results - last 24 hr 05/31/25 06/01/25 04:57 06:12 WBC 5.5 RBC 3.92 L Hgb 10.6 L Hct 33.9 L MCV 87 MCH 27.0 MCHC 31.3 RDW Std Deviation 50.0 H Plt Count 362 Neut % (Auto) 68 Lymph % (Auto) 15 [place] % (Auto) 7 Eos % (Auto) 7 Baso % (Auto) 1 Neut # (Auto) 3.7 Lymph # (Auto) 0.8 L Gregory # (Auto) 0.4 Eos # (Auto) 0.4 Baso # (Auto) 0.1 Immature Gran # (Auto) 0.06 H Absolute Nucleated RBC 0.00 Immature Gran % 1 H Nucleated RBC % 0 Sodium 144 Potassium 4.5 D Chloride 110 H Carbon Dioxide 25.5 Anion Gap 9 BUN 11 Creatinine 0.9 Estim Creat Clear Calc 31.7 L eGFR > 60 BUN/Creatinine Ratio 12 Glucose 85 Calculated Osmolality 285 Calcium 8.7 Corrected Calcium 9.5 Phosphorus 3.4 Magnesium 1.8 Total Bilirubin 0.2 L AST 17 ALT 18 Alkaline Phosphatase 73 C-Reactive Prot, Quant 3.4 H Total Protein 4.8 L Albumin 3.0 L Globulin 1.8 L Albumin/Globulin Ratio 1.7 Impressions Impression: # Chronic persistent diarrhea # Colonic ileus The diarrhea could be because of that as colon has no motility and the stool is just running out Patient could also have a functional bowel disease Trial of dicyclomine 10 mg p.o. 3 times daily and Questran powder once a day with meals and a glass of water ANCA antibody CRP ABG Interpretation ABG results: 05/26/25 20:16 VBG pH 7.41 VBG pCO2 34 L VBG pO2 30 VBG Base Excess -3 Assessment & Plan Time Spent With Patient Time: Total time spent is greater than 50% in coordination of care (as documented) at patient's floor/unit and/or counseling patient:
[2025-06-01] MEDS: CHOLESTYRAMINE/SUCROSE 1 PKT EA PO (18:21)
[2025-06-01 19:28] LABS: Stool for WBCs Few (Negative)
[2025-06-01 20:00] VITALS: BP 114/87; PULSE 74; PULSE 86; RESP 23; TEMP 37.6; O2SAT 98
[2025-06-01] MEDS: DICYCLOMINE 10 MG CAPSULE PO (21:25)
[2025-06-02] VITALS: BP 107/44; PULSE 109; PULSE 75; RESP 19; TEMP 37.1; O2SAT 97
[2025-06-02 04:00] VITALS: BP 115/42; PULSE 71; PULSE 75; RESP 20; TEMP 37.6; O2SAT 97
[2025-06-02 04:52] VITALS: BMI 17.9
[2025-06-02] MEDS: DICYCLOMINE 10 MG CAPSULE PO ×3 (05:22→21:09)
[2025-06-02] MEDS: NYSTATIN PWD 15 GM BTL TOP ×4 (05:22→21:10)
[2025-06-02 05:54] LABS: Alanine Aminotransferase 14 U/L (10-49); Albumin, Serum 3.1 gm/dL (3.4-4.8); Albumin/Globulin Ratio 1.6 (1.2-2.2); Alkaline Phosphatase 72 U/L (46-116); Anion Gap 9 (7-16); Aspartate Amino Transferase 16 U/L (0-34); BUN/Creatinine Ratio 13 Ratio (12-20); Bilirubin,Total 0.2 mg/dL (0.3-1.2); Blood Urea Nitrogen 10 mg/dL (9-23); Calcium 8.6 mg/dL (8.3-10.6); Calcium (Corrected) 9.3 mg/dL (8.5-10.1); Carbon Dioxide 23.5 mMol/L (20.0-31.0); Chloride 109 mMol/L (98-107); Creatinine (Component) 0.8 mg/dL (0.6-1.3); Estimated Creatinine Clearance 33.2 mL/min (>60); Globulin 1.9 gm/dL (2.3-3.5); Glucose 101 mg/dL (74-106); Magnesium 2.0 mg/dL (1.6-2.6); Osmolality,Calculated 280 (275-295); Phosphorous 3.2 mg/dL (2.4-5.1); Potassium 4.4 mMol/L (3.4-5.1); Sodium 141 mMol/L (136-145); Total Protein 5.0 gm/dL (5.7-8.2); eGFR > 60 See Note
[2025-06-02 06:33] LABS: Basophils # (Auto) 0.1 Thou/mm3 (0.0-0.2); Basophils % (Auto) 1 % (0-2.5); Eosinophils # (Auto) 0.3 Thou/mm3 (0.0-0.5); Eosinophils % (Auto) 5 % (0-10); Hematocrit 34.5 % (36.0-46.0); Hemoglobin 10.9 g/dL (12.0-16.0); Immature Granulocytes Auto 0.05 Thou/mm3 (0.00-0.00); Lymphocytes # (Auto) 0.8 Thou/mm3 (1.0-4.8); Lymphocytes % (Auto) 13 % (10-50); Mean Corpuscular HGB Conc 31.6 g/dl (31.0-37.0); Mean Corpuscular Hemoglobin 27.2 pg (25.0-35.0); Mean Corpuscular Volume 86 fL (80-100); Monocytes # (Auto) 0.4 Thou/mm3 (0.0-0.8); Monocytes % (Auto) 6 % (0-12); Neutrophils # (Auto) 4.5 Thou/mm3 (1.8-7.7); Neutrophils % (Auto) 74 % (37-80); Nucleated Red Blood Cell # 0.00 Thou/mm3 (0.00-0.00); Nucleated Red Blood Cell % 0 /100 WBC (0); Platelet Count 385 Thou/mm3 (140-440); RDW Standard Deviation 50.0 fL (36.4-46.3); Red Blood Count 4.01 Miln/mm3 (4.00-5.20); White Blood Count 6.1 Thou/mm3 (3.6-11.0)
--- NOTE | 2025-06-02 07:41 | ESPR_ITS ---
<Statement entered by Timbo Meadows MD - 06/02/25 16:35> Patient seen and examined at bedside. I discussed and supervised with the journalism internship physician who took care of this patient. I personally saw and examined the patient. I agree with most of the assessment and plan. Plan of care discussed with attending Dr. Morales. Timbo Meadows MD PGY-2 Documentation for date of: 06/02/25 Subjective Subjective Interval history: No acute event overnight.? Patient continued to have 5 bowel movement. KUB showed colonic ileus. GI, Dr. Montes, commented that diarrhea could be because of colonic has no motility and stool just runs out, could also have a functional bowel disease; suggested for a trial of dicyclomine 10 mg p.o. 3 times daily and Questran powder once a day with meals and a glass of water; order ANCA antibody CRP Pending stool calprotectin, Giardia, ova and parasite Exam Vital Signs Temp Pulse Resp BP Pulse Ox O2 Del Method 99.7 F 75 20 115/42 L 97 Room Air 06/02/25 04:00 06/02/25 04:00 06/02/25 04:00 06/02/25 04:00 06/02/25 04:00 06/02/25 04:00 Narrative Exam GENERAL APPEARANCE: AOx1, cachectic, comfortable, not in acute distress HEENT: Normocephalic atraumatic, no facial trauma, neck is supple. Lids/conjunctiva normal. Mucous membranes moist, nares normal, lips/teeth normal uvula midline without oral pharyngeal erythema, exudate or swelling TMs normal bilaterally. No lymphangitis/lymphedema. CARDIAC: Regular rate and rhythm. S1+S2 heard. No murmurs, rubs, or gallops noted RESPIRATORY: Increase respiratory effort, bilateral rhonchi ABDOMINAL: NBS. Soft, ND/NT. No evidence of fluid wave. No pulsatile masses on exam, rebound tenderness, Edwards sign or pain over Mcburney's point. MUSCLES/EXTREMITIES: Withdrawing upper and lower extremities DERM: Warm, pink and dry. Echymosis observed on upper extremities bilaterally, likely due to repeat IV access. Left arm skin tears NEUROLOGICAL: Unable to access due to baseline dementia and patient's inability to follow command. PSYCH: Fidgety Renal: No CVA tenderness Objective Labs 06/02/25 04:07 06/02/25 04:07 Labs: Laboratory Results - last 24 hr 06/01/25 06/02/25 18:21 04:07 WBC 6.1 RBC 4.01 Hgb 10.9 L Hct 34.5 L MCV 86 MCH 27.2 MCHC 31.6 RDW Std Deviation 50.0 H Plt Count 385 Neut % (Auto) 74 Lymph % (Auto) 13 [place] % (Auto) 6 Eos % (Auto) 5 Baso % (Auto) 1 Neut # (Auto) 4.5 Lymph # (Auto) 0.8 L [place] # (Auto) 0.4 Eos # (Auto) 0.3 Baso # (Auto) 0.1 Immature Gran # (Auto) 0.05 H Absolute Nucleated RBC 0.00 Immature Gran % 1 H Nucleated RBC % 0 Sodium 141 Potassium 4.4 Chloride 109 H Carbon Dioxide 23.5 Anion Gap 9 BUN 10 Creatinine 0.8 Estim Creat Clear Calc 33.2 L eGFR > 60 BUN/Creatinine Ratio 13 Glucose 101 Calculated Osmolality 280 Calcium 8.6 Corrected Calcium 9.3 Phosphorus 3.2 Magnesium 2.0 Total Bilirubin 0.2 L AST 16 ALT 14 Alkaline Phosphatase 72 Total Protein 5.0 L Albumin 3.1 L Globulin 1.9 L Albumin/Globulin Ratio 1.6 Stool for White Cells Few A ABG Interpretation ABG results: 05/26/25 20:16 VBG pH 7.41 VBG pCO2 34 L VBG pO2 30 VBG Base Excess -3 Quality Measures Quality Measures VTE prophylaxis and sepsis Current suspected stage: sepsis Possible source: pulmonary and genitourinary Blood cultures ordered: yes Antibiotic ordered: Yes Advance care planning discussed with:: patient and spouse Assessment & Plan Assessment Current Active Medications: Generic Name Dose Route Start Last Admin Trade Name Freq PRN Reason Stop Dose Admin Acetaminophen 650 mg 05/26/25 01:32 Acetaminophen 325 Mg Tablet PO 06/25/25 01:31 Q6H PRN Fever >100.4 or pain 1-3 Hydrocodone Bitart/Acetaminophen 1 tab 05/30/25 10:12 Hydrocodone/Apap 5/325 Tablet GT 06/03/25 01:37 Q4HR PRN PAIN SCALE 4-10(Mod-Sev Cholestyramine Resin 1 pkt 06/01/25 18:15 06/01/25 18:21 Cholestyramine/Sucrose 1 Pkt Ea PO 07/01/25 18:14 1 pkt QDAY LORNE Administration Dextrose 25 ml 05/26/25 05:05 Dextrose 50%-Water Inj 50 Ml Syringe IV 06/25/25 05:04 Q15MIN PRN BG 50-70 responsive npo pt Dextrose 50 ml 05/26/25 05:05 Dextrose 50%-Water Inj 50 Ml Syringe IV 06/25/25 05:04 Q15MIN PRN BG <50 OR BG <70 & pt unresponsive Dicyclomine HCl 10 mg 06/01/25 22:00 06/02/25 05:22 Dicyclomine 10 Mg Capsule PO 07/01/25 21:59 10 mg TID LORNE Administration Glucagon 1 mg 05/26/25 05:05 Glucagon Inj 1 Mg Vial IM Q15MIN PRN BG <70, and no IV access Heparin Sodium (Porcine) 5,000 unit 05/26/25 09:00 06/01/25 20:06 Heparin Sod Inj 5000 Unit/Ml Vial SC 06/09/25 08:59 5,000 unit Q12HR LORNE Administration Insulin Human Lispro 0 unit 05/26/25 12:00 06/02/25 05:05 Insulin Lispro (Admelog) 1 Unit/0.01 Ml Unit SC 06/25/25 11:59 Not Given Q6HR [facility] Protocol Midodrine 5 mg 05/29/25 13:23 Midodrine 5 Mg Tablet GT 06/26/25 05:06 Q6HR PRN SBP <90 Nystatin 0 gm 05/27/25 17:00 06/02/25 05:22 Nystatin Pwd 15 Gm Btl TOP 06/26/25 16:59 1 applicatio QID LORNE Administration Pantoprazole Sodium 40 mg 05/26/25 09:00 06/01/25 08:43 Pantoprazole Inj 40 Mg Vial IVP 06/25/25 08:59 40 mg QDAY LORNE Administration Plan #Diarrhea #Metabolic Acidosis (NAGMA) - resolved Started after admission, conincide with starting of new tube feed formula. Antibiotics only started recently, unlikely to cause diarrhea. Continue to have continuous diarrhea and hypotension leading to rapid response today. AG 9. NAGMA 2/[address] [facility], patient was on Fibersource for tubefeed, had loose BM since 05/18 up until hospitalization. Stool test has been negative. 06/02: Continue to have 5 BM last 24hrs. KUB ordered showed colonic ileus. GI, Dr. Montes, commented that diarrhea could be because of colonic has no motility and stool just runs out, could also have a functional bowel disease. CRP 3.4. Blood culture 05/31 negative. Stool WBC positive Plan: -Pending stool electrolyte to evaluate secretory vs. osmotis diarrhea -Pending ANCA antibody -Consulted GI, Dr. Montes, appreciate recs: trial of dicyclomine 10 mg p.o. 3 times daily and Questran powder once a day with meals and a glass of water -Monitor diarrhea progress on new GI trial -Continue free water 60cc/hr -Pending stool calprotectin, Giardia, ova and parasite #Sepsis, sofa score greater than 2 #UTI #Community-acquired pneumonia likely secondary to gram-positive versus gram- negative organisms Patient presents from [facility] hypotensive 76/39 tachycardic HR 145 and febrile 101.2F. Nonverbal at baseline. Crackles auscultated in lungs. CXR bilateral perihilar RUL PNA. UA orange in color and turbid +2 protein +2 blood WBC 56 Bacteria +4. BP is responsive to fluids. Started Zosyn 3.375g for dual coverage of UTI and CAP. Last UTI 1 month ago positive E.coli, 2 months ago positive for Morganella morganii and Enterococcus faecium (grp d), 3 months ago positive for E. coli Cocci negative C. difficile stool toxin came back negative Blood culture 05/25 and 05/31 negative Patient was treated with Zosyn 3.375 g 3 times daily (05/26 -05/27) Plan: -Continue home midodrine 5mg every 6 hours as needed -MRSA negative, PRSA PNA unlikely, discontinue Vancomycin -Discontinue Ceftriaxone (05/28-06/04) and Azithromycin (05/28-05/31) #Hypernatremia - improving Na 151 initially, has been fluctuating up and down. Asymptomatic at the moment. On 06/02 NA 141 stable Plan: -Continue free water 60cc/hr -Manage diarrhea: Trial of dicyclomine 10 mg p.o. 3 times daily and Questran powder once a day with meals and a glass of water #Severe Protein Calorie Malnutrition #Severe Failure to Thrive Plan: -Currently on tube feed -Dietitian to follow #Anemia - resolved History of anemia, on iron at home. History of vaginal bleed. Per nurse, no vaginal bleed observed. Not on blood thinner. Hgb 6.2 05/27 and 10.1 status post 2u pRBC. No reported of melena, hemoptysis, hematemesis, hematochezia. Given continuous IVF, likely hemodilutional effect. However, in the current setting of sepsis and mutiple comorbodities, will transfuse blood. Plan: -Monitor daily labs #LU - Resolved At admission. BUN 45 Cr 1.3, improved, most likely due to physiologic volume depletion in setting of sepsis Plan: -Remain hydrated with oral and PPN route -Avoid nephrotoxic agents -Monitor renal panel daily #Transaminitis - Resolved At admission. Mild, AST 40 ALT 50 ALP 159, improving. Most likely due to volume depletion in setting of sepsis. Plan: -Monitor labs daily #Hx of diabetes Plan: -ISS -Glucose bedside checks ACHS -On tube feed #Hx of afib - Resolved Currently stable, not tachycardic. Med rec did not show Afib medications. Tachycardia upon admission likely due to sepsis. Plan: -Continue to monitor on tele #Goals of care Patient has repeat admissions (2 months ago, 1 month ago). Failure to thrive. Goal of care was discussed last admission, agreed to go comfort care but due to insurance conflict, patient remained full code to go to SNF. Spoke to , Code status changes to DNR/DNI as of 05/26 Health Maintenance: Code status: DNR/DNI DVT prophylaxis: Heparin GI prophylaxis: Protonix Diet: Tube feed Renteria: Yes Lines: PIV, PEG Supplemental O2: None Disposition: Tele bed Assessment and plan discussed with my attending physician Dr. Morales and Dr. Meadows (PGY-2). Dr. Beal (PGY-1) ? vice president pharmacy Attending Provider Attestation/Addendum I have seen and examined the patient. I was physically present for the abbott portions of the services provided including history, physical exam, diagnosis, treatment plans and orders. I agree with assessment and plan of care as documented by residents. Patient seen and examined at bedside this morning. Appears comfortable and calm. Continues to be confused but denies any new complaints. Vital signs are stable, lab results are stable as well. Continues to have multiple bowel movements. Discussed with gastroenterology, we will start her on dicyclomine 10 mg 3 times daily along with Questran powder once a day, appreciate recommendations. Most of the infectious stool studies have been negative although stool for WBC showed few white cells. Some of the studies including ova and parasite, calprotectin, Giardia, trichomonas are pending. We will continue to monitor closely for bowel movement and electrolytes. Even though this this note was carefully revised there may still be minor errors in dining car hop due to voice recognition software. Osito Morales MD
[2025-06-02 08:00] VITALS: BP 98/58; PULSE 71; PULSE 86; RESP 26; TEMP 36.9; O2SAT 96
[2025-06-02] MEDS: CHOLESTYRAMINE/SUCROSE 1 PKT EA PO (09:01)
[2025-06-02] MEDS: HEPARIN SOD INJ 5000 UNIT/ML VIAL SC ×2 (09:01→21:09)
[2025-06-02 12:00] VITALS: BP 114/50; PULSE 70; PULSE 77; RESP 22; TEMP 36.7; O2SAT 95
[2025-06-02 16:00] VITALS: BP 118/59; PULSE 72; PULSE 76; RESP 18; TEMP 36.4; O2SAT 95
--- NOTE | 2025-06-02 17:40 | PD.IMPROG ---
Documentation for date of: 06/02/25 Subjective Subjective Interval history: Patient continues to have diarrhea Stool C. difficile is negative all the other stool samples are pending results Patient on dicyclomine and Questran powder Add loperamide 2 mg twice daily for symptomatic control until all the results are back Exam Vital Signs Temp Pulse Resp BP Pulse Ox O2 Del Method 97.6 F 72 18 118/59 L 95 Room Air 06/02/25 16:00 06/02/25 16:00 06/02/25 16:00 06/02/25 16:00 06/02/25 16:00 06/02/25 16:00 Objective Labs 06/02/25 04:07 06/02/25 04:07 Labs: Laboratory Results - last 24 hr 06/01/25 06/02/25 18:21 04:07 WBC 6.1 RBC 4.01 Hgb 10.9 L Hct 34.5 L MCV 86 MCH 27.2 MCHC 31.6 RDW Std Deviation 50.0 H Plt Count 385 Neut % (Auto) 74 Lymph % (Auto) 13 [place] % (Auto) 6 Eos % (Auto) 5 Baso % (Auto) 1 Neut # (Auto) 4.5 Lymph # (Auto) 0.8 L [place] # (Auto) 0.4 Eos # (Auto) 0.3 Baso # (Auto) 0.1 Immature Gran # (Auto) 0.05 H Absolute Nucleated RBC 0.00 Immature Gran % 1 H Nucleated RBC % 0 Sodium 141 Potassium 4.4 Chloride 109 H Carbon Dioxide 23.5 Anion Gap 9 BUN 10 Creatinine 0.8 Estim Creat Clear Calc 33.2 L eGFR > 60 BUN/Creatinine Ratio 13 Glucose 101 Calculated Osmolality 280 Calcium 8.6 Corrected Calcium 9.3 Phosphorus 3.2 Magnesium 2.0 Total Bilirubin 0.2 L AST 16 ALT 14 Alkaline Phosphatase 72 Total Protein 5.0 L Albumin 3.1 L Globulin 1.9 L Albumin/Globulin Ratio 1.6 Stool for White Cells Few A Impressions Impression: Chronic persistent diarrhea of uncertain etiology Possibly functional bowel disease Wait for the stool samples completed results Continue dicyclomine Questran and loperamide ABG Interpretation ABG results: 05/26/25 20:16 VBG pH 7.41 VBG pCO2 34 L VBG pO2 30 VBG Base Excess -3 Assessment & Plan Time Spent With Patient Time: Total time spent is greater than 50% in coordination of care (as documented) at patient's floor/unit and/or counseling patient:
[2025-06-02 20:00] VITALS: BP 116/46; PULSE 80; PULSE 82; RESP 25; TEMP 37.5; O2SAT 100
[2025-06-02] MEDS: LOPERAMIDE 2 MG CAPSULE PO (21:09)
[2025-06-03] VITALS (8 sets, daily range): BP systolic 116–126; BP diastolic 46–74; PULSE 70–97; RESP 16–25; TEMP 36.2–37.5; O2SAT 98–100; BMI 18.6
[2025-06-03] MEDS: DICYCLOMINE 10 MG CAPSULE PO ×2 (05:26→14:57)
[2025-06-03] MEDS: NYSTATIN PWD 15 GM BTL TOP ×3 (05:27→18:28)
[2025-06-03 06:38] LABS: Basophils # (Auto) 0.1 Thou/mm3 (0.0-0.2); Basophils % (Auto) 1 % (0-2.5); Eosinophils # (Auto) 0.3 Thou/mm3 (0.0-0.5); Eosinophils % (Auto) 5 % (0-10); Hematocrit 35.8 % (36.0-46.0); Hemoglobin 11.2 g/dL (12.0-16.0); Immature Granulocytes Auto 0.04 Thou/mm3 (0.00-0.00); Lymphocytes # (Auto) 0.8 Thou/mm3 (1.0-4.8); Lymphocytes % (Auto) 15 % (10-50); Mean Corpuscular HGB Conc 31.3 g/dl (31.0-37.0); Mean Corpuscular Hemoglobin 27.3 pg (25.0-35.0); Mean Corpuscular Volume 87 fL (80-100); Monocytes # (Auto) 0.4 Thou/mm3 (0.0-0.8); Monocytes % (Auto) 6 % (0-12); Neutrophils # (Auto) 4.2 Thou/mm3 (1.8-7.7); Neutrophils % (Auto) 73 % (37-80); Nucleated Red Blood Cell # 0.00 Thou/mm3 (0.00-0.00); Nucleated Red Blood Cell % 0 /100 WBC (0); Platelet Count 451 Thou/mm3 (140-440); RDW Standard Deviation 49.9 fL (36.4-46.3); Red Blood Count 4.11 Miln/mm3 (4.00-5.20); White Blood Count 5.7 Thou/mm3 (3.6-11.0)
[2025-06-03 06:58] LABS: Alanine Aminotransferase 17 U/L (10-49); Albumin, Serum 3.5 gm/dL (3.4-4.8); Albumin/Globulin Ratio 1.7 (1.2-2.2); Alkaline Phosphatase 83 U/L (46-116); Anion Gap 8 (7-16); Aspartate Amino Transferase 18 U/L (0-34); BUN/Creatinine Ratio 20 Ratio (12-20); Bilirubin,Total 0.2 mg/dL (0.3-1.2); Blood Urea Nitrogen 16 mg/dL (9-23); Calcium 9.1 mg/dL (8.3-10.6); Calcium (Corrected) 9.5 mg/dL (8.5-10.1); Carbon Dioxide 24.4 mMol/L (20.0-31.0); Chloride 108 mMol/L (98-107); Creatinine (Component) 0.8 mg/dL (0.6-1.3); Estimated Creatinine Clearance 34.6 mL/min (>60); Globulin 2.1 gm/dL (2.3-3.5); Glucose 94 mg/dL (74-106); Magnesium 2.1 mg/dL (1.6-2.6); Osmolality,Calculated 280 (275-295); Phosphorous 3.3 mg/dL (2.4-5.1); Potassium 4.7 mMol/L (3.4-5.1); Sodium 140 mMol/L (136-145); Total Protein 5.6 gm/dL (5.7-8.2); eGFR > 60 See Note
[2025-06-03] MEDS: HEPARIN SOD INJ 5000 UNIT/ML VIAL SC (09:04)
[2025-06-03] MEDS: CHOLESTYRAMINE/SUCROSE 1 PKT EA PO (09:05)
[2025-06-03] MEDS: LOPERAMIDE 2 MG CAPSULE PO (09:05)
--- NOTE | 2025-06-03 15:38 | PD.IMPROG ---
Documentation for date of: 06/03/25 Subjective Subjective Interval history: Checked with the attending RN No diarrhea today Exam Vital Signs Temp Pulse Resp BP Pulse Ox O2 Del Method 97.5 F 81 16 126/68 98 Room Air 06/03/25 11:29 06/03/25 11:29 06/03/25 11:29 06/03/25 11:29 06/03/25 11:29 06/03/25 11:29 Objective Labs 06/03/25 04:56 06/03/25 04:56 Labs: Laboratory Results - last 24 hr 06/03/25 04:56 WBC 5.7 RBC 4.11 Hgb 11.2 L Hct 35.8 L MCV 87 MCH 27.3 MCHC 31.3 RDW Std Deviation 49.9 H Plt Count 451 H D Neut % (Auto) 73 Lymph % (Auto) 15 [place] % (Auto) 6 Eos % (Auto) 5 Baso % (Auto) 1 Neut # (Auto) 4.2 Lymph # (Auto) 0.8 L [place] # (Auto) 0.4 Eos # (Auto) 0.3 Baso # (Auto) 0.1 Immature Gran # (Auto) 0.04 H Absolute Nucleated RBC 0.00 Immature Gran % 1 H Nucleated RBC % 0 Sodium 140 Potassium 4.7 Chloride 108 H Carbon Dioxide 24.4 Anion Gap 8 BUN 16 Creatinine 0.8 Estim Creat Clear Calc 34.6 L eGFR > 60 BUN/Creatinine Ratio 20 Glucose 94 Calculated Osmolality 280 Calcium 9.1 Corrected Calcium 9.5 Phosphorus 3.3 Magnesium 2.1 Total Bilirubin 0.2 L AST 18 ALT 17 Alkaline Phosphatase 83 Total Protein 5.6 L Albumin 3.5 Globulin 2.1 L Albumin/Globulin Ratio 1.7 Impressions Impression: Functional bowel disease Continue current management as is working and patient has no diarrhea No need for any invasive GI workup ABG Interpretation ABG results: 05/26/25 20:16 VBG pH 7.41 VBG pCO2 34 L VBG pO2 30 VBG Base Excess -3 Assessment & Plan Time Spent With Patient Time: Total time spent is greater than 50% in coordination of care (as documented) at patient's floor/unit and/or counseling patient:
--- NOTE | 2025-06-03 16:17 | PC.SS ---
SS has setup gurney transportation with [employer] for 7pm to [facility]. is aware. is unable to pay privately for transportation. Bedside nurse, Yuly is aware. Shireen from [employer] is aware. SS provided Allyn from [employer] with nurses station's phone number. SS provided both unit clerks with [employer]'s phone #.
--- NOTE | 2025-06-03 16:24 | ESDS_ITS ---
<Statement entered by Timbo Meadows MD - 06/04/25 18:05> Patient seen and examined at bedside. I discussed and supervised with the architect intern physician who took care of this patient. I personally saw and examined the patient. I agree with most of the assessment and plan. Plan of care discussed with attending Dr. Morales. Timbo Meadows MD PGY-2 Planned Discharge Date 06/03/25 DS: Providers Provider Date of admission: 05/26/25 01:32 Primary care physician: Liam Mistry MD Admitting Provider: Matthew Duke MD Attending Provider on Admission: Osito Morales MD Consults: 05/26/25 01:53 Referral Speech Therapy Routine Comment: 05/26/25 05:35 Referral Wound Care Routine Comment: 05/26/25 05:45 Referral Registered Dietitian Routine Comment: to resume tube feeds also BMI 15 05/26/25 05:49 Referral Registered Dietitian Routine Comment: 05/31/25 08:28 Consult to Gastroenterology Urgent Comment: Consulting Provider: Sarah Montes Attending Provider on DC: Osito Morales MD Discharging Provider: Vicky Beal MD DS: Diagnosis Problem List Completed Was Problem List Reviewed/Reconciled?: Yes Hospital Course Hospital Course Hospital course: 85-year-old female with history of dementia, paroxysmal A-fib, hypertension, diabetes, hyperlipidemia, ulcerative colitis, prior colon cancer, status post PEG tube presented from [facility] for increased respiration. Admitted for sepsis rule out secondary to UTI or pneumonia. In ED, patient was hemodynamically unstable, hypotensive, sinus tachycardia 145 on EKG, febrile 101.2F. Zosyn and vancomycin were given for UTI and pneumonia. In hospital, patient was noted to have multiple episodes of hypotension re quiring rapid response which were corrected with fluid. Was noted to have multiple bouts of loose diarrhea which started in [facility] since 05/18. All stool test has been negative. KUB showed colonic ileus. GI consulted, recommended treatment of dicyclomine, question, loperamide. Patient had no diarrhea on this current treatment. Patient stable and medically clear for discharge. Will get discharge back to [facility] on this current treatment. Return precaution given. #Diarrhea #Metabolic Acidosis (NAGMA) - resolved #Sepsis, sofa score greater than 2 #UTI #Community-acquired pneumonia likely secondary to gram-positive versus gram- negative organisms #Hypernatremia - improving #Severe Protein Calorie Malnutrition #Severe Failure to Thrive #Anemia #LU #Transaminitis #Hx of diabetes #Hx of afib #Goals of care Instruction You have been started on the following medications: - Cholestyramine 20 powder packet once daily - Dicyclomine 10 mg once daily - Loperamide 2mg twice daily Please contninue taking all other medications as previously prescribed. Please follow up with your primary doctor in 7-10 days. Please follow up on outstanding lab results. Return to the ED if you develop new or worsening symptoms. Assessment and plan discussed with my attending physician Dr. Morales and Dr. Meadows (PGY-2). Dr. Beal (PGY-1) ? vice president of procurement Status at Discharge Overall status at discharge: patient is back to baseline Time Spent with Patient Time attestation: Total time spent providing and/or coordinating discharge services: 36 minutes Time spent: Greater than 30 minutes Exam Vital Signs Temp Pulse Resp BP Pulse Ox O2 Del Method 97.5 F 81 16 126/68 98 Room Air 06/03/25 11:06/03/25 11:06/03/25 11:06/03/25 11:06/03/25 11:06/03/25 11:29 Narrative Exam GENERAL APPEARANCE: AOx1, cachectic, comfortable, not in acute distress HEENT: Normocephalic atraumatic, no facial trauma, neck is supple. Lids/conjunctiva normal. Mucous membranes moist, nares normal, lips/teeth normal uvula midline without oral pharyngeal erythema, exudate or swelling TMs normal bilaterally. No lymphangitis/lymphedema. CARDIAC: Regular rate and rhythm. S1+S2 heard. No murmurs, rubs, or gallops noted RESPIRATORY: Increase respiratory effort, bilateral rhonchi ABDOMINAL: NBS. Soft, ND/NT. No evidence of fluid wave. No pulsatile masses on exam, rebound tenderness, Edwards sign or pain over Mcburney's point. MUSCLES/EXTREMITIES: Withdrawing upper and lower extremities DERM: Warm, pink and dry. Echymosis observed on upper extremities bilaterally, likely due to repeat IV access. Left arm skin tears NEUROLOGICAL: Unable to access due to baseline dementia and patient's inability to follow command. PSYCH: Fidgety Renal: No CVA tenderness Discharge Plan Plan Patient Disposition: Xfer Skilled Nsg Fac (SNF) Patient condition on transfer: Stable Care Plan Goals: You have been started on the following medications: - Cholestyramine 20 powder packet once daily - Dicyclomine 10 mg once daily - Loperamide 2mg twice daily Please contninue taking all other medications as previously prescribed. Please follow up with your primary doctor in 7-10 days. Please follow up on outstanding lab results. Return to the ED if you develop new or worsening symptoms. Prescriptions/Referrals Prescriptions/Med Rec: New loperamide 2 mg Capsule 2 mg PO BID 30 Days Qty: 60 2RF dicyclomine 10 mg Capsule 10 mg PO TID 30 Days Qty: 90 2RF cholestyramine (with sugar) 4 gram Powder In Packet 20 g PO QDAY 30 Days Qty: 60 2RF Continued multivitamin Tablet 1 tab feeding tube QDAY Qty: 30 0RF pantoprazole [address] for susp in packet 40 mg feeding tube QDAY ferrous sulfate 220 mg (44 mg iron)/5 mL elixir 22 mg feeding tube QDAY megestrol 400 mg/10 mL (10 mL) suspension 400 mg feeding tube QDAY ascorbic acid (vitamin C) [Acerola C] 500 mg tablet,chewable 500 mg feeding tube QDAY midodrine 5 mg tablet 5 mg feeding tube [id number] Patient Comments: TAKE 1 TABLET BY MOUTH THREE TIMES A DAY NEEDED FOR SBP <95 FOR 30 DAYS Rx Instructions: hold B/P <95 silver sulfadiazine [Silvadene] 1 % cream 1 applic topical QDAY Rx Instructions: apply a 1.5 mm thickness,MASD with shearing Discontinued ferrous sulfate [Gil-Time] 325 mg (65 mg iron) tablet 325 mg feeding tube QDAY megestrol 400 mg/10 mL (40 mg/mL) suspension 50 mg PO TID MDD 3.75 ML Qty: 480 0RF Referrals: Liam Mistry MD [Primary Care Provider, Family Practice] Patient/Caregiver Discharge Instructions Discharge Activity: activity as tolerated Print Language: Japanese Stand Alone Forms: Shara Award Info., Patient Portal Info Letter Discharge Order Discharge Orders: Discharge (Routine); Ordered 06/03/25 Ordered By: Timbo Meadows Quality Discharge Quality Measures VTE prophylaxis Attestestation MD Attestation I have seen and examined the patient. I was physically present for the abbott portions of the services provided including history, physical exam, diagnosis, treatment plans and orders. I agree with assessment and plan of care as documented by residents. Even though this this note was carefully revised there may still be minor errors in semiconductor wafer inspector due to voice recognition software. Osito Morales MD
--- NOTE | 2025-06-03 18:49 | PC.NURSE ---
Checked patient blood glucose which read 64. Physician was notified. Was directed to to give dextrose IV. However, was not able to push dextrose through patient IV. I then administered grape juice through patient's PEG tube. Rechecked patient blood glucose 15 minutes later and it was 110. Physician notified.
--- NOTE | 2025-06-04 09:16 | PC.SS ---
SS received call from Shireen from [facility] who states she did not receive patient's dc orders yesterday. SS has faxed d/c information to [phone] (unable to use [facility] since pt was already d/c)
[2025-06-14 15:35] LABS: Source STOOL
[2025-06-15 06:37] LABS: Giardia Result NOT DETECTED
[2025-06-15 06:39] LABS: Calprotectin, Stool* SEE SEP RPT mcg/g
== END 2025-06-03 19:11 | disposition skilled nursing facility (03) | DRG 871 ==
LOC: SERX 05-26 00:28 → SERHOLD 05-26 02:05 → S3SX 05-26 06:30 → S2NX 05-28 17:05 → S3SX 06-03 01:22
PROVIDERS: Student in an Organized Health Care Education/Training Program; Admitting Provider Internal Medicine; Emergency Provider Emergency Medicine; PCP Family Medicine; Visit Provider Student in an Organized Health Care Education/Training Program
DX: A41.9 Sepsis, unspecified organism (principal); E43 Unspecified severe protein-calorie malnutrition; J18.9 Pneumonia, unspecified organism; R65.21 Severe sepsis with septic shock; N39.0 Urinary tract infection, site not specified; Z68.1 Body mass index [BMI] 19.9 or less, adult; N17.9 Acute kidney failure, unspecified; E87.0 Hyperosmolality and hypernatremia; E87.4 Mixed disorder of acid-base balance; K56.7 Ileus, unspecified; I48.0 Paroxysmal atrial fibrillation; I10 Essential (primary) hypertension; F03.90 Unspecified dementia, unspecified severity, without behavioral disturbance, psychotic disturbance, mood disturbance, and anxiety; E11.9 Type 2 diabetes mellitus without complications; R62.7 Adult failure to thrive; D64.9 Anemia, unspecified; E87.8 Other disorders of electrolyte and fluid balance, not elsewhere classified; E86.0 Dehydration; R74.01 Elevation of levels of liver transaminase levels; S41.112A Laceration without foreign body of left upper arm, initial encounter; E78.5 Hyperlipidemia, unspecified; Z93.1 Gastrostomy status; Z85.038 Personal history of other malignant neoplasm of large intestine; Z66 Do not resuscitate; Z78.1 Physical restraint status
CPT/HCPCS: 36415; 51702; 71045; 74018; 80053; 80202; 81001; 82803; 83605; 83735; 83880; 83993; 84100; 84295; 84443; 84484; 85014; 85018; 85025; 86140; 86331; 86635; 86850; 86900; 86901; 86923; 87015; 87040; 87045; 87046; 87081; 87086; 87177; 87205; 87209; 87329; 87493; 87502; 87635; 87899; 92610; 93005; 93225; 96361; 96365; 96366; 96372; 96375; 99284; A4314; J0456; J0696; J1644; J2470; J2543; J3373; J7030; J7042; J7050; J7070; J7120; P9016; P9047; Q9963; A9270; P0947

== ENCOUNTER 2025-07-05 00:17 | Inpatient (IN) | payer MEDICARE, BC, SELFPAY ==
[2025-07-05] VITALS (123 sets, daily range): BP systolic 51–128; BP diastolic 29–93; PULSE 70–163; RESP 16–40; TEMP 36.4–37.7; O2SAT 77–100; BMI 21.4
--- NOTE | 2025-07-05 00:33 | PD.EDARRY ---
ED Arrhythmia Palp. RME/HPI General Chief Complaint: Arrhythmia/Palpitations Stated Complaint: TACHYCARDIA Time Seen by Provider: 07/05/25 00:33 Arrival date/time: 07/05/25 00:17 Limitations: other (Patient has dementia, does not follow commands, moans, nonverbal this is her baseline per EMS) RME / HPI RME / HPI narrative: Dr. Lim?s Main ED Evaluation: 85yo female with a history of dementia, paroxysmal aFib, HTN, DM, HLD, ulcerative colitis, prior colon cancer, status post PEG tube BIBA from [facility] presents to the ED for a chief complaint of tachycardia. Patient was sent over due to her heart rate being in the 170s per SNF staff. Here in the ED, patient noted to have dark stools. Full ROS is unobtainable due to the patient's history of dementia. Related Data Home Medications ?Medication ?Instructions ?Recorded ?Confirmed ascorbic acid (vitamin C) 500 mg 500 mg feeding tube QDAY 05/26/25 05/26/25 chewable tablet (Acerola C) ferrous sulfate 220 mg (44 mg 22 mg feeding tube QDAY 05/26/25 05/26/25 iron)/5 mL oral elixir megestrol 400 mg/10 mL (10 mL) 400 mg feeding tube QDAY 05/26/25 05/26/25 oral suspension midodrine 5 mg tablet 5 mg feeding tube [id number] 05/26/25 05/26/25 pantoprazole 40 mg granules 40 mg feeding tube QDAY 05/26/25 05/26/25 delayed-release for susp in packet silver sulfadiazine 1 % topical 1 applic topical QDAY 05/26/25 05/26/25 cream (Silvadene) Previous Rx's ?Medication ?Instructions ?Recorded multivitamin 1 tab feeding tube QDAY #30 tabs 03/08/25 cholestyramine (with sugar) 4 gram 20 g PO QDAY 1 month #60 ea 06/03/25 powder for susp in a packet dicyclomine 10 mg capsule 10 mg PO TID 1 month #90 caps 06/03/25 loperamide 2 mg capsule 2 mg PO BID 1 month #60 caps 06/03/25 Allergies Allergy/AdvReac Type Severity Reaction Status Date / Time No Known Allergies Allergy Verified 07/05/25 00:28 Review of Systems Review of Systems ROS Unobtainable: unobtainable due to mental status ED Exam General Limitations: Present other (Patient has dementia, does not follow commands, moans, nonverbal this is her baseline per EMS) General appearance: Present alert and other (mostly edentulous; chronically-ill appearing; does not follow commands or open eyes spontaneously; moaning) Head Head exam: Present atraumatic Eye Eye exam: Present PERRL, EOMI and other (Patient does not spontaneously open her eyes, however when we open her eyelids at bedside did not have any acute abnormalities) ENT ENT exam: Present normal exam, normal oropharynx and mucous membranes dry Neck Neck exam: Present normal inspection, full ROM and trachea midline Chest Chest inspection: Present normal inspection and symmetric chest wall rise Respiratory Respiratory exam: Present normal lung sounds bilaterally; Absent respiratory distress Cardiovascular Cardiovascular exam: Present tachycardia and normal heart sounds Abdominal Exam Abdominal exam: Present soft; Absent distention, tenderness or guarding Rectal Exam Rectal exam: Present heme (+) stool and other (dark stools) Extremities Exam Extremities exam: Present other (BUE and BLE contractures) Neurological Exam Neurological exam: Present alert and other (No gross focal neurodeficits beyond patient's baseline, she is moving all 4 extremities, nonverbal at baseline.) Skin Skin exam: Present warm, dry and other (stage 2 palm-sized sacral ulcer with mild erythema) Course Course Course Narrative: 0115: Sepsis alert initiated. Orders made at this time are congruent with ED Adult Sepsis Order List. Re-evaluation is to be completed. LR IVF was started at 0102. CXR is ordered for determining the etiology of sepsis. Sepsis re-evaluation is pending at the time of admission. Quality Measures Possible source: genitourinary Blood cultures ordered: yes Antibiotic ordered: Yes Pertinent labs: 07/05/25 00:55 Lactic Acid 3.4 H mMol/L (0.4-2.0) Procalcitonin Pending sepsis Arrhythmia/Palpitations MDM Narrative MDM Narrative:: Scribe Attestation: 07/05/25 - Analilia Low am scribing for and in the presence of Dr. Lim. Patient is an 85-year-old female with an emergency department with concerns for elevated heart rate, patient has a history of atrial fibrillation she is not on anticoagulation. In the emergency department, patient came in soiled, had black stools, I performed an Hemoccult blood testing that showed that patient does have blood in her stool. Patient does have a history of a gastrointestinal ulcer. Given patient's tachycardia, broad workup ordered including sepsis workup and GI bleed workup. Patient does not have a history of esophageal varices. Ordered Protonix bolus and drip, labs, EKG chest x-ray. Placed a consult for gastroenterology. Patient also has sacral ulcer stage II, no fluctuance crepitus, no violaceous changes less likely necrotizing infection. Labs with evidence of leukocytosis 15.2, left shift of 88%. Patient's hemoglobin is 8.6 patient's prior hemoglobin in May was 11. Platelets 767 previously 450. Patient sodium is 152, previously was 140. Given patient's dry mucous membranes concern the patient is dehydrated. Patient's chloride is 118 BUN 60 creatinine 1.5. Patient osmole's elevated, 321. Lactic acid is 3.4. Normal T. bili and AST and ALT. Alk phos is 247. Procalcitonin not elevated. Urinalysis, turbid, positive for nitrites, positive for leuk esterase, 144 BCs 249 white blood cells concerning for urinary tract infection. Antibiotics provided. Patient received a liter of fluids will repeat metabolic panel and judiciously correct patient sodium. Chest x-ray without evidence of any acute cardiopulmonary abnormalities. EKG performed today at 10 3 in the morning, interpreted by me, notable for atrial flutter with rapid ventricular response, heart rate 160, normal QT, nonspecific T wave changes, not a cardiac alert. Given patient A-fib with RVR did provide patient with diltiazem, patient heart rate did not improve significantly, provided additional doses of diltiazem. Given patient's severe hyponatremia, A-fib with RVR, likely needing diltiazem drip, will consult ICU for admission. Discussed case with hospitalist, they evaluated patient, patient became acutely hypotensive they ordered additional fluid bolus. Will hold off on starting the Cardizem drip given patient's acute hypotension. Once fluid bolus is completed. Repeat metabolic panel following initial fluid resuscitation without any changes in patient's sodium. 4a reevaluated patient, patient systolic blood pressure 100. Continues to be with heart rate in the 150s. Patient lactic acid increased at 12. Ordered CT angio of the chest abdomen pelvis to look for pulmonary embolism mesenteric ischemia. Updated ICU, and accepts patient for admission. ICU Will follow-up on CTs. Patient data [place] [facility] [place], EMS form and Assisted records (Per WILIAN, patient is a full code.) Clinical information provided by:: EMS Social determinants that could affect healthcare access:: housing (SNF resident) Patient has the following chronic illnesses:: dementia, paroxysmal aFib, HTN, DM, HLD, ulcerative colitis, prior colon cancer, status post PEG tube How is presenting disease/condition affected by chronic disease/condition?: exacerbated by Evaluation data The following diagnostics were reviewed and interpreted by me:: lab results, radiology exam(s) and EKG tracing(s) Lab and/or radiology exams considered but not ordered:: none Interpretation Summary: CXR shows no focal effusions, infiltrates, or any other acute cardiopulmonary findings, according to my interpretation. Medications / Prescriptions Medications or Prescriptions considered but not ordered:: none Medication administrations:: see above Consultations Consultation(s) initiated? (list below): Yes Consultation #1 (Physician, Specialty, Details): Discussed case with the ICU service from Hospitalist service regarding admission. Discussed patients ED course, exam findings, labs, and radiology results. The Hospitalist will evaluate the patient for admission. Time: 02:41 Diagnosis Differential diagnosis arrhythmia/palpitations: palpitations, sinus tachycardia, artial fibrillation, artial flutter and other (dehydration, electrolyte abnormality, sepsis, UTI, pneumonia) Most likely diagnosis given after review of the tests above:: see clinical impression below Admission Indicated Admission indicated?: indicated Admission Request Was there a request for admission?: Yes Admission Attestation Admission request attestation: Discussed case with [] from Hospitalist service regarding admission. Discussed patients ED course, exam findings, labs, and radiology results. The Hospitalist [agrees,declines] to accept the patient for admission. Disposition Plan Disposition Plan: Admit Critical Care Time Critical Care Time Critical Care Time: Yes Total Critical Care Time (min.): 120 Attestation: Due to a high probability of clinically significant, life threatening deterioration, the patient required my highest level of preparedness to intervene emergently and I personally spent this critical care time directly and personally managing the patient. This critical care time included obtaining a history; examining the patient; pulse oximetry; ordering and review of studies; arranging urgent treatment with development of a management plan; evaluation of patient's response to treatment; frequent reassessment; and, discussions with other providers. This critical care time was performed to assess and manage the high probability of imminent, life-threatening deterioration that could result in multi-organ failure. It was exclusive of separately billable procedures and treating other patients and teaching time. Please see MDM section and the rest of the note for further information on patient assessment and treatment. Discharge Plan Plan Patient Disposition: Admit Acute Care w/in Hospital Problem List Clinical Impression: Septic shock, Atrial fibrillation with RVR, Urinary tract infection, Acidosis, lactic, Melena
--- NOTE | 2025-07-05 00:34 | EKG_ITS ---
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
--- NOTE | 2025-07-05 00:34 | XR_ITS ---
EXAMINATION: AP chest single view TECHNIQUE: AP portable semiupright chest single view Date and time: July 10, 2025, 0112 hours, comparison May 25, 2025 INDICATIONS: Sepsis alert FINDINGS: Mild prominence left ventricle No lobar pneumonia Severe osteopenia IMPRESSION: No lobar pneumonia
[2025-07-05] MEDS: cefTRIAXone/D5w 1gm IV premix 1 GM/50 ML BAG IV (01:01)
[2025-07-05] MEDS: RINGERS LACTATED 1000 ML 1,000 ML 999 ML IV ×4 (01:02→09:00)
[2025-07-05 01:04] LABS: Lactate (Lactic Acid) 3.4 mMol/L (0.4-2.0)
[2025-07-05 01:07] LABS: Basophils # (Auto) 0.1 Thou/mm3 (0.0-0.2); Basophils % (Auto) 1 % (0-2.5); Eosinophils # (Auto) 0.0 Thou/mm3 (0.0-0.5); Eosinophils % (Auto) 0 % (0-10); Hematocrit 28.5 % (36.0-46.0); Immature Granulocytes Auto 0.08 Thou/mm3 (0.00-0.00); Lymphocytes # (Auto) 1.0 Thou/mm3 (1.0-4.8); Lymphocytes % (Auto) 6 % (10-50); Mean Corpuscular HGB Conc 30.2 g/dl (31.0-37.0); Mean Corpuscular Hemoglobin 25.8 pg (25.0-35.0); Mean Corpuscular Volume 86 fL (80-100); Monocytes # (Auto) 0.8 Thou/mm3 (0.0-0.8); Monocytes % (Auto) 5 % (0-12); Neutrophils # (Auto) 13.3 Thou/mm3 (1.8-7.7); Neutrophils % (Auto) 88 % (37-80); Nucleated Red Blood Cell # 0.00 Thou/mm3 (0.00-0.00); Nucleated Red Blood Cell % 0 /100 WBC (0); Platelet Count 767 Thou/mm3 (140-440); RDW Standard Deviation 53.3 fL (36.4-46.3); Red Blood Count 3.33 Miln/mm3 (4.00-5.20); White Blood Count 15.2 Thou/mm3 (3.6-11.0)
[2025-07-05] MEDS: PANTOPRAZOLE/NS 80MG IV PREMIX 80 MG/100 ML BAG 10 MG IV (01:07)
[2025-07-05 01:10] LABS: Hemoglobin 8.6 g/dL (12.0-16.0)
[2025-07-05 01:24] LABS: Path Review Blood Smear Sent to Pathologist
[2025-07-05 01:25] LABS: Collection Type, Urine Catheter; Squamous Epithelial Cell,Urine 0 /hpf (0-5)
[2025-07-05 01:27] LABS: INR 1.1 (0.9-1.3); Partial Thromboplastin Time 20.0 Seconds (22.0-36.0); Prothrombin Time 11.5 Seconds (9.0-12.2)
[2025-07-05] MEDS: DILTIAZEM INJ 5 MG/ML VIAL 5 ML 10 MG IV (01:29)
[2025-07-05 01:33] LABS: Amorphous Crystals,Urine Present (Absent); Bacteria,Urine 4+; Bilirubin,Urine Negative (Negative); Blood,Urine 3+ (Negative); Clarity,Urine Turbid (Clear/Hazy); Color,Urine Yellow (Lt Yel-Yel); Glucose, Urine Negative (Negative); Granular Casts,Urine < 1 /hpf (0-1); Ketones,Urine Negative (Negative); Leukocyte Esterase,Urine Positive (Negative); Nitrite,Urine Positive (Negative); PH,Urine 6.5 (5.0-7.0); Protein,Urine 1+ (Neg - Trace); RBC,Urine 144 /hpf (0-3); Specific Gravity,Urine 1.014 (1.001-1.035); Urobilinogen,Urine Negative mg/dL (0.0-1.0); WBC,Urine 349 /hpf (0-5)
[2025-07-05 01:33] LABS: Alanine Aminotransferase 37 U/L (10-49); Albumin, Serum 3.6 gm/dL (3.4-4.8); Albumin/Globulin Ratio 1.1 (1.2-2.2); Alkaline Phosphatase 247 U/L (46-116); Anion Gap 14 (7-16); Aspartate Amino Transferase 18 U/L (0-34); BUN/Creatinine Ratio 40 Ratio (12-20); Bilirubin,Total 0.2 mg/dL (0.3-1.2); Blood Urea Nitrogen 60 mg/dL (9-23); Calcium 9.7 mg/dL (8.3-10.6); Calcium (Corrected) 10.0 mg/dL (8.5-10.1); Carbon Dioxide 20.2 mMol/L (20.0-31.0); Chloride 118 mMol/L (98-107); Creatinine (Component) 1.5 mg/dL (0.6-1.3); Estimated Creatinine Clearance 20.1 mL/min (>60); Globulin 3.2 gm/dL (2.3-3.5); Glucose 145 mg/dL (74-106); Osmolality,Calculated 321 (275-295); Potassium 5.0 mMol/L (3.4-5.1); Procalcitonin 0.29 ng/ml (0.0-0.49); Sodium 152 mMol/L (136-145); Total Protein 6.8 gm/dL (5.7-8.2); eGFR 34 See Note
[2025-07-05] MEDS: DILTIAZEM INJ 5 MG/ML VIAL 5 ML 15 MG IV (02:30)
[2025-07-05 03:10] LABS: Chloride,Urine Random 26.6 mMol/L (55.0-125.0); Potassium,Urine Random 47 mMol/L (12-62); Sodium,Urine Random 20.2 mMol/L (20.0-110.0)
[2025-07-05 03:25] LABS: Alanine Aminotransferase 31 U/L (10-49); Albumin, Serum 3.1 gm/dL (3.4-4.8); Albumin/Globulin Ratio 1.1 (1.2-2.2); Alkaline Phosphatase 217 U/L (46-116); Anion Gap 12 (7-16); Aspartate Amino Transferase 16 U/L (0-34); BUN/Creatinine Ratio 42 Ratio (12-20); Bilirubin,Total 0.2 mg/dL (0.3-1.2); Blood Urea Nitrogen 55 mg/dL (9-23); Calcium 9.3 mg/dL (8.3-10.6); Calcium (Corrected) 10.0 mg/dL (8.5-10.1); Carbon Dioxide 22.1 mMol/L (20.0-31.0); Chloride 118 mMol/L (98-107); Creatinine (Component) 1.3 mg/dL (0.6-1.3); Estimated Creatinine Clearance 23.1 mL/min (>60); Free T4 (Free Thyroxine) 1.25 ng/dL (0.89-1.76); Globulin 2.8 gm/dL (2.3-3.5); Glucose 107 mg/dL (74-106); Osmolality,Calculated 316 (275-295); Potassium 4.7 mMol/L (3.4-5.1); Sodium 152 mMol/L (136-145); Thyroid Stimulating Hormone 1.91 uIU/mL (0.55-4.78); Total Protein 5.9 gm/dL (5.7-8.2); Troponin I 0.031 ng/mL (0.0-0.045); eGFR 41 See Note
[2025-07-05 04:04] LABS: Reflex Lactate? Y
[2025-07-05 04:06] LABS: Lactate (Lactic Acid) 12.9 mMol/L (0.4-2.0)
--- NOTE | 2025-07-05 04:08 | XR_ITS ---
Examination: CTA chest, with intravenous contrast. CTA abdomen, with intravenous contrast. CTA pelvis, with intravenous contrast. 2-D sagittal and coronal reconstructions. 3-D reconstructions. Date and time of exam: June 5202 5, 0446 hours INDICATIONS: Tachycardia abdominal pain, clinical diagnosis mesenteric ischemia CTDI vol (mgy) 5.96 DLP (MGycm) 402 Technique: Multiple CTA images, 2.0 mm slice thickness, obtained chest, abdomen, pelvis, with the high-resolution 64 slice scanner. 100 cc Isovue-370 is administered intravenously. Sagittal and coronal 2-D reconstructions are obtained. 3-D reconstructions, angiographic images are obtained. 3-D postprocessing, including vascular maximum intensity projections. Low dose protocols were performed. One or more of the following dose reduction techniques were used; automated exposure control, adjustment of the mA and/or KV according to patient size, use of iterative reconstruction technique. Findings: No thoracic aortic aneurysm dilatation or dissection No pulmonary artery filling defects Soft opacities in the right upper lobe consistent with pneumonia Diffuse thickening of the abreu of the mid and lower esophagus Lower lobe atelectasis No visualized liver or splenic lesion Contracted gallbladder Gastrostomy tube satisfactory position Heavy abdominal aortic calcification Abundant stool throughout the colon No bowel obstruction Normal appendix Very large amounts of stool in the rectum There is suggestion of perirectal fluid axial image 253, limited assessment secondary to the right hip arthroplasty Severe osteopenia with extensive thoracic lumbar stabilization IMPRESSION: No thoracic aortic aneurysm dilatation Negative for pulmonary artery emboli Soft opacities in the right upper lobe consistent with pneumonia Diffuse thickening of the abreu of the mid and lower esophagus, differential would include esophageal tumor, recommend endoscopy follow-up Normal appendix Large amounts of stool throughout the colon Large amounts of stool in the rectum with possible fluid collection peripheral to the rectum, clinical correlation advised, consider perirectal abscess or incompetent rectum,.
--- NOTE | 2025-07-05 04:46 | PD.RESHP ---
Documentation for date of: 07/05/25 [facility] History of Present Illness Chief complaint: tachycardia History of present illness: Ms. Thao is a 85 y.o female with PMHx significant for dementia, paroxysmal atrial fibrillation, hypertension, diabetes, hyperlipidemia, ulcerative colitis, prior colon cancer, s/p PEG tube presented to [facility] from [facility] for increased heart rate and AMS. Associated symptoms also include having dark stools, unsure how long patient has been having them. Patient is a poor historian and most of the history was obtained from the ER and chart review. Patient on exam localizes to pain on LUQ palpation. Patient is alert and oriented x 0, unable to state her name, but localizes to pain and able to follow limited commands such as opening her eyes. ED course: Patient presented with a BP of 112/70, HR 160, RR 29, and Temp of 100F, satting 100% on RA. Patient's labs are significant for leukocytosis, normocytic anemia, thrombocytosis, elevated sodium of 152, potassium 5.0, hypochloremia of 118, elevated creatinine of 1.5, BUN of 55, lactic of 3.4, negative troponin, decreased albumin, UA suggestive of UTI, noted to be cloudy, turbid, 1+ protein, 3+ blood, positive nitrite, positive leukocyte esterase, pyuria, and 4+ bacteria. Urine lites were ordered, urine random sodium 20.2, urine random potassium 47, urine random chloride 26.6. CT Chest Abdomen Pelvis was ordered d/t repeat LA being 12.9, despite only 3 hours from previous lactic acid. CXR doesn't show any active disease and no apparent signs of PNA, but pending final read. EKG shows Sinus Tachycardia, as p waves are seen in the leads, and the nurse chemical dependency continues to show patient in Sinus tachycardia. In the ED, patient was given 2L LR, 25 mg of Diltiazem pushes, and given a dose of IV Rocephin and IV PPI gtt for patient's melena. Patient will be admitted to ICU for further management of hypovolemic vs septic shock in the setting of dehydration and UTI. Pending CT chest abdomen pelvis to r/o any abdominal pathology. Review of Systems Review of Systems ROS Unobtainable: unobtainable due to medical condition Past Medical History Past Medical History Comments PMH COMMENT: PMHx: As mentioned above PSHx: Peg tube placement Medications: Per SNF med review: patient takes acetaminophen 325 mg 2 tabs as needed mild pain, Cholestyramine 20 gram via GT, Dicyclomine 1 capsule GT, Dulcolax Rectal Suppository q24 hours PRN, Ferrous Sulfate 22mg via GT, Loperamide 2mg GT for loose stools, Midodrine 5mg Q6HR TID for SBP <95, Pantoprazole 40mg QD, and Ascorbic acid 500mg QD Allergies: NKDA Living:Currently resides at [facility] Exam Vital Signs Temp Pulse Resp BP Pulse Ox O2 Del Method 97.7 F 150 H 19 102/74 100 Room Air 07/05/25 04:13 07/05/25 04:13 07/05/25 04:13 07/05/25 04:13 07/05/25 04:13 07/05/25 04:13 Narrative Exam General Appearance: Pt is an ill appearing female in mild acute distress, cachetic, uncomfortable, spontaneously opens eyes. HEENT: NC/AT, no scleral icterus, conjunctival pallor, dry mucus membranes, edentulous Lungs: CTAB, no wheezes or crackles appreciated CVS: Tachycardic, S1/S2 heard, no murmurs or rubs appreciated ABD: Soft, tender to palpation to LUQ, site around G-tube appears mildy erythematous and crusted old blood. non-distended, BS + EXT: no deformity/edema/lesions/cyanosis/clubbing, radial pulses 2+ BL, DP pulses 2 + BL SKIN: Skin exam normal without any rashes except for scattered ecchymosis across her b/l extremities and poor skin turgor Neuro: Patient able to localize to pain and move her extremities. Alert and awake, able to follow limited commands. Results: Labs 07/05/25 04:36 07/05/25 04:36 Labs: Short CBC 07/05/25 Range/Units 00:55 WBC 15.2 H (3.6-11.0) Thou/mm3 Hgb 8.6 L (12.0-16.0) g/dL Hct 28.5 L (36.0-46.0) % Plt Count 767 H D (140-440) Thou/mm3 BMP 07/05/25 07/05/25 00:55 02:50 Sodium 152 H 152 H Potassium 5.0 4.7 Chloride 118 H 118 H Carbon Dioxide 20.2 22.1 BUN 60 H 55 H Creatinine 1.5 H 1.3 Glucose 145 H 107 H Calcium 9.7 9.3 Cardiac Enzymes 07/05/25 Range/Units 02:50 Troponin I 0.031 (0.0-0.045) ng/mL Liver Function 07/05/25 07/05/25 Range/Units 00:55 02:50 Total Bilirubin 0.2 L 0.2 L (0.3-1.2) mg/dL AST 18 16 (0-34) U/L ALT 37 31 (10-49) U/L Alkaline Phosphatase 247 H 217 H D (46-116) U/L Albumin 3.6 3.1 L D (3.4-4.8) gm/dL Urine 07/05/25 Range/Units 01:18 Urine Color Yellow (Lt Yel-Yel) Urine Clarity Turbid A (Clear/Hazy) Urine pH 6.5 (5.0-7.0) Ur Specific [place] 1.014 (1.001-1.035) Urine Protein 1+ A (Neg - Trace) Urine Glucose (UA) Negative (Negative) Quality Measures Quality Measures sepsis Current suspected stage: septic shock (LA >4 and/or hypotension) Sepsis reassessment completed at (date): 07/05/25 Sepsis reassessment completed at (time): 03:55 Possible source: genitourinary Blood cultures ordered: yes Antibiotic ordered: Yes Advance care planning discussed with:: patient Medications Home Medications and Allergies Home Medications ?Medication ?Instructions ?Recorded ?Confirmed ?Type ascorbic acid (vitamin C) 500 mg 500 mg feeding tube QDAY 05/26/25 05/26/25 History chewable tablet (Acerola C) ferrous sulfate 220 mg (44 mg 22 mg feeding tube QDAY 05/26/25 05/26/25 History iron)/5 mL oral elixir megestrol 400 mg/10 mL (10 mL) 400 mg feeding tube QDAY 05/26/25 05/26/25 History oral suspension midodrine 5 mg tablet 5 mg feeding tube [id number] 05/26/25 05/26/25 History pantoprazole 40 mg granules 40 mg feeding tube QDAY 05/26/25 05/26/25 History delayed-release for susp in packet silver sulfadiazine 1 % topical 1 applic topical QDAY 05/26/25 05/26/25 History cream (Silvadene) Allergies Allergy/AdvReac Type Severity Reaction Status Date / Time No Known Allergies Allergy Verified 07/05/25 00:28 Visit Medications Pantoprazole Sodium (Protonix/Ns 80mg Iv Premix) 80 mg in 100 mls @ 10 mls/hr IV X1 ONE Stop: 07/05/25 10:34 Last Admin: 07/05/25 01:07 Dose: 10 mls/hr Lactated Ringer's (Lactated Ringers) 1,000 mls @ 999 mls/hr IV .Q1H1M ONE Stop: 07/05/25 05:20 Last Admin: 07/05/25 04:26 Dose: 999 mls/hr Piperacillin/Tazobactam/Dextrose (Zosyn) 3.375 gm in 50 mls @ 100 mls/hr IV Q6HR [facility]; Protocol Stop: 07/12/25 04:21 Piperacillin/Tazobactam/Dextrose (Zosyn) 3.375 gm in 50 mls @ 100 mls/hr IV X1 ONE; Protocol Stop: 07/05/25 04:59 Midodrine (Midodrine 5 Mg Tablet) 5 mg PO Q6HR PRN PRN Reason: SBP < 90 or MAP < 65 Stop: 08/04/25 05:59 Discontinued Medications Diltiazem HCl (Diltiazem Inj 5 Mg/Ml Vial 5 Ml) 10 mg IV X1 ONE Stop: 07/05/25 01:10 Last Admin: 07/05/25 01:29 Dose: 10 mg Diltiazem HCl (Diltiazem Inj 5 Mg/Ml Vial 5 Ml) 15 mg IV X1 ONE Stop: 07/05/25 02:27 Last Admin: 07/05/25 02:30 Dose: 15 mg Lactated Ringer's (Lactated Ringers) 1,000 mls @ 999 mls/hr IV .Q1H1M ONE Stop: 07/05/25 01:33 Last Infusion: 07/05/25 02:24 Dose: Infused Ceftriaxone Sodium/Dextrose (Rocephin/D5w 1gm Iv Premix) 1 gm in 50 mls @ 100 mls/hr IV STAT STA Stop: 07/05/25 01:02 Last Infusion: 07/05/25 01:31 Dose: Infused Pantoprazole Sodium (Protonix/Ns 80mg Iv Premix) 80 mg in 100 mls @ 400 mls/hr IV X1 ONE Stop: 07/05/25 00:49 Last Admin: 07/05/25 01:07 Dose: Not Given Diltiazem/Sodium Chloride (Diltiazem In Ns 100 Mg) 100 mg in 100 mls @ 5 mls/hr IV .Q20H [facility]; Protocol Stop: 08/04/25 02:48 Last Admin: 07/05/25 03:17 Dose: Not Given Lactated Ringer's (Lactated Ringers) 1,000 mls @ 999 mls/hr IV .Q1H1M ONE Stop: 07/05/25 04:02 Last Infusion: 07/05/25 04:14 Dose: Infused Amiodarone HCl/Dextrose (Nexterone Ivpb) 150 mg in 100 mls @ 600 mls/hr IV .Q10M ONE Stop: 07/05/25 04:26 Last Admin: 07/05/25 04:27 Dose: Not Given Amiodarone HCl/Dextrose (Nexterone Ivpb) 360 mg in 200 mls @ 33.333 mls/hr IV .Q6H ONE Stop: 07/05/25 10:15 Last Admin: 07/05/25 04:27 Dose: Not Given Pantoprazole Sodium (Pantoprazole Inj 40 Mg Vial) 80 mg IVP X1 ONE Stop: 07/05/25 00:58 Last Admin: 07/05/25 01:06 Dose: 80 mg Assessment & Plan Plan Ms. Thao is a 85 y.o female with PMHx significant for dementia, paroxysmal atrial fibrillation, hypertension, diabetes, hyperlipidemia, ulcerative colitis, prior colon cancer, s/p PEG tube presented to [facility] from [facility] for increased heart rate and AMS and admitted to ICU for further management of hypovolemic vs septic shock in the setting of dehydration and UTI. Pending CT chest abdomen pelvis to r/o any abdominal pathology. NEURO #Acute encephalopathy DDx: Toxic-metabolic encephalopathy vs Uremia vs Hypernatremia vs Hypovolemia vs worsening dementia Dx: CMP, lactate trending, CT head if no improvement or focal deficits, F/u Infectious workup (blood/urine cultures) Rx:Treat underlying shock and metabolic derangements with IVF and Abx, Correct hypernatremia gradually, Avoid sedating medications Treatment Review:Mental status to be reassessed with hemodynamic stabilization and lactate clearance. CARDIO #Shock DDx: Hypovolemic shock (dehydration and/or ?GI bleed) vs Septic shock (UTI and/or possible abdominal source) Dx: EKG shows sinus tachycardia but has a history of paroxysmal atrial fibrillation, Elevated Lactate, patient extremly dry with poor skin turgor, CT chest/abdomen/pelvis, Blood/Urine cultures x2, Bedside echo Rx: Continue aggressive IV fluid resuscitation, Vasopressors if MAP <65 despite fluids Treatment Review: Continue to reassess based on lactate clearance, MAP response, and imaging results. #Hx of Paroxysmal Atrial Fibrillation Currently in sinus tachycardia. Dx: Patient was discharged in March 2025 with Amiodarone 200mg BID via GT, has a hx of Paroxysmal A-fib on previous EKGs; currently not on any anticoagulation despite [employer] being 4 d/t hx of GI bleed Rx: Continue to monitor on tele monitor, EKG if needed, and consider adding Amiodarone if needed Treatment Review: PULM No active issues GI/FEN #Abdominal tenderness #Melena DDx: Upper GI bleed (PUD, gastritis) vs colitis flare vs. PEG tube complications Dx: Patient presenting with LUQ abdominal pain with guarding on palpation; CT abdomen/pelvis, Serial hemoglobin, Stool guaiac positive , GI consult if bleeding persists Rx:Continue IV PPI drip, Hold tube feeds for now, Occult blood positive in the ED, NPO except meds via GT, GI consult Treatment Review:Resume nutrition once hemodynamically stable and bleeding ruled out. #PEG tube dependence Dx: Takes home meds via G-tube Rx: Can restart home GT meds when patient is able to tolerate, pending imaging read on CT C/A/P #Severe constipation Pending CT A/P read Abundant amounts of stool seen on CT Initially given Laxative but withheld after tele-rad noted possibility of rectal rupture General surgery consulte RENAL #Acute kidney injury DDx: Pre-renal LU from dehydration vs Sepsis-associated LU vs ATN (if prolonged hypoperfusion) Dx: Daily BMP, Strict I's/O's Rx: IV fluids with careful sodium correction, Avoid nephrotoxins, Adjust medications for renal dosing Treatment Review: #Hypernatremia DDx:dehydration vs chronic SIADH Dx: Urine lytes, Strict I's/O's Rx: Trend Na Q4HR, consider D5 maintenance gentle fluids HEME/ONC #Normocytic anemia DDx: Acute vs chronic GI blood loss vs Anemia of chronic disease Dx: Serial CBC, Iron studies if stable, Transfusion threshold <7 g/dL or symptomatic Rx:Monitor hemoglobin and Hold anticoagulation given bleeding concern, Type and Screen ordered Treatment Review: Transfusion strategy based on hemodynamics and bleeding. #Thrombocytosis DDx: Reactive thrombocytosis (infection/inflammation) vs essential thrombocythemia Dx: elevated PLT, dehydration seen on PE Rx: treat underlying sepsis ENDO #Diabetes mellitus DDx: Stress hyperglycemia Dx: q6h glucose monitoring Rx: Sliding scale insulin, Avoid hypoglycemia, Target BG is 140-180 Treatment Review: ID #Sepsis DDx:2/2 to UTI and or Intra-abdominal infection vs bacteremia Dx: Blood cultures x2, Urine culture, CT chest/abdomen/pelvis Rx: Continue IV Zosyn, Escalate antibiotics if clinical deterioration, Trend lactate q4?6h Treatment Review: Antibiotics to be narrowed based on culture data MSK No active issues PSYCH No active issues Health Maintenance: DVT prophylaxis: SCDs in lieu of possible GI Bleed GI prophylaxis: Protonix gtt Diet: NPO, meds via G-tube Velazquez: Yes, doesn't use a chronic velazquez at [facility] Lines: PIV Drips: Vent: CODE STATUS: Full code Disposition: Admitted to ICU for shock and hypernatremia. Patient's care and plan discussed with my attending, Dr. Lien Posey, PGY-3 Attending Provider Attestation/Addendum After examining patient and review of the clinical data patient was found to have high probability of imminent deterioration which required my direct management and intervention TOTAL CC TIME: 60 MIN TOTAL TIME: 60 Minutes of direct medical management and planning of care. I Arthur Emmanuel MD, attest that I was physically present for abbott portions of evaluation, and examined patient, labs and imagings and plan of care were discussed with IM residents team, and I agree with the findings and plans documented above.
[2025-07-05 04:49] LABS: Lactate (Lactic Acid) 3.8 mMol/L (0.4-2.0)
[2025-07-05 04:55] LABS: Basophils # (Auto) 0.1 Thou/mm3 (0.0-0.2); Basophils % (Auto) 1 % (0-2.5); Eosinophils # (Auto) 0.0 Thou/mm3 (0.0-0.5); Eosinophils % (Auto) 0 % (0-10); Hematocrit 25.3 % (36.0-46.0); Immature Granulocytes Auto 0.09 Thou/mm3 (0.00-0.00); Lymphocytes # (Auto) 0.8 Thou/mm3 (1.0-4.8); Lymphocytes % (Auto) 6 % (10-50); Mean Corpuscular HGB Conc 30.0 g/dl (31.0-37.0); Mean Corpuscular Hemoglobin 25.5 pg (25.0-35.0); Mean Corpuscular Volume 85 fL (80-100); Monocytes # (Auto) 0.7 Thou/mm3 (0.0-0.8); Monocytes % (Auto) 5 % (0-12); Neutrophils # (Auto) 12.6 Thou/mm3 (1.8-7.7); Neutrophils % (Auto) 88 % (37-80); Nucleated Red Blood Cell # 0.00 Thou/mm3 (0.00-0.00); Nucleated Red Blood Cell % 0 /100 WBC (0); Platelet Count 657 Thou/mm3 (140-440); RDW Standard Deviation 53.0 fL (36.4-46.3); Red Blood Count 2.98 Miln/mm3 (4.00-5.20); White Blood Count 14.3 Thou/mm3 (3.6-11.0)
[2025-07-05] MEDS: PIPER/TAZO 3.375 GM PREMIX 3.375 GM/50 ML BAG IV ×3 (04:56→21:03)
[2025-07-05 05:00] LABS: Hemoglobin 7.6 g/dL (12.0-16.0)
[2025-07-05 05:12] LABS: Alanine Aminotransferase 26 U/L (10-49); Albumin, Serum 2.9 gm/dL (3.4-4.8); Albumin/Globulin Ratio 1.1 (1.2-2.2); Alkaline Phosphatase 206 U/L (46-116); Anion Gap 14 (7-16); Aspartate Amino Transferase < 8 U/L (0-34); BUN/Creatinine Ratio 39 Ratio (12-20); Bilirubin,Total 0.3 mg/dL (0.3-1.2); Blood Urea Nitrogen 51 mg/dL (9-23); Calcium 9.1 mg/dL (8.3-10.6); Calcium (Corrected) 10.0 mg/dL (8.5-10.1); Carbon Dioxide 20.2 mMol/L (20.0-31.0); Chloride 119 mMol/L (98-107); Creatinine (Component) 1.3 mg/dL (0.6-1.3); Estimated Creatinine Clearance 23.1 mL/min (>60); Globulin 2.7 gm/dL (2.3-3.5); Glucose 101 mg/dL (74-106); Magnesium 2.4 mg/dL (1.6-2.6); Osmolality,Calculated 317 (275-295); Potassium 4.6 mMol/L (3.4-5.1); Sodium 153 mMol/L (136-145); Total Protein 5.6 gm/dL (5.7-8.2); eGFR 41 See Note
--- NOTE | 2025-07-05 05:51 | PRELIM_ITS ---
CT angiogram of the chest, abdomen and pelvis with intravenous contrast (axial sections with sagittal and coronal reformats) July 05, 2025 at 0446 hours Clinical History: Mesenteric ischemia, pulmonary thromboembolism. Comparison: None available at the time of this report. Findings: The thoracic aorta demonstrates mild atheromatous calcification without evidence of dissection or aneurysm. The origins of the right brachiocephalic, left common carotid and left subclavian arteries are patent. The abdominal aorta demonstrates mild atheromatous calcification without evidence of dissection or aneurysm. The celiac, superior mesenteric, inferior mesenteric and bilateral renal arteries are patent to the extent visualized. The common iliac, external iliac and internal iliac arteries are patent bilaterally. There is no filling defect within the pulmonary artery divisions to suggest pulmonary thromboembolism. No evidence of mediastinal mass or lymphadenopathy. There is no pericardial effusion. Bilateral lower lobes atelectasis. No evidence of pleural effusion or pneumothorax. The liver, gallbladder, spleen, pancreas, adrenals and kidneys are unremarkable. No evidence of bowel obstruction. No evidence of appendicitis. There is no significant mesenteric or retroperitoneal adenopathy. A Renteria catheter in place. The urinary bladder wall thickening. There is no free fluid, free air or abscess. Degenerative changes of the imaged portions of the spine. Chronic multilevel disc disease. No acute fractures. Spinal hardware noted. Right femoral hardware noted. Esophageal thickening. Small hiatus hernia. Dilated left atrium. Percutaneous gastric PEG tube in place. Fecal loading. Impacted fecaloma in the rectum. Fecal loading. Probable contained rupture of the rectum with perirectal collection, limited evaluation due to beam hardening artifacts. No evidence of bowel or mesenteric ischemia. Impression: 1. Probable contained rupture of the rectum with perirectal collection, limited evaluation due to beam hardening artifacts. Surgical consult is recommended. 2. Impacted fecaloma in the rectum associated with fecal loading. 3. No evidence of aortic dissection or aneurysm. 4. No evidence of pulmonary thromboembolism. 5. Small hiatus hernia. 6. Esophageal thickening, inflammatory versus neoplastic, consider correlation with endoscopy. 7. No evidence of bowel or mesenteric ischemia. 8. Dilated left atrium. 9. Probable cystitis. Discussion Details: Results verbally communicated to : Dr. Emmanuel at 05:48 AM 07/05/2025 Report Electronically Signed By: Otis Coe 07/05/2025 5:50:39 AM [EST]
[2025-07-05] MEDS: MORPHINE SULF INJ 4 MG/ML VIAL 1 MG IVP (06:06)
[2025-07-05] MEDS: Norepinephrine/D5W 8mg/250ml 8 MG/250 ML BAG 4.678 MG IV (06:36)
[2025-07-05 07:02] LABS: Reflex Lactate? Y
[2025-07-05 07:48] LABS: Reflex Lactate? Y
[2025-07-05] MEDS: RINGERS LACTATED 500 ML 250 ML 999 ML IV (07:49)
[2025-07-05 08:10] LABS: Base Excess, Venous -3 (-3-3); O2 Saturation, Venous 64 % (96-97); PCO2, Venous 45 mmHg (36-56); PO2, Venous 39 mmHg (15-58); pH, Venous 7.31 (7.33-7.66)
[2025-07-05] MEDS: ALBUMIN HUMAN-KJDA 25% IVPB 25 GM/100 ML BTL IV (08:21)
[2025-07-05 08:25] LABS: Lactic Acid, 3 HR 4.0 mMol/L (0.4-2.0)
--- NOTE | 2025-07-05 09:40 | CHAP ---
Prayed near bed of patient who was mostly sleeping.
--- NOTE | 2025-07-05 10:29 | ESPR_ITS ---
<Statement entered by Jo Trevino MD - 07/06/25 12:01> TOTAL CC TIME: 45 MIN TOTAL TIME: 45MINUTES ON DIRECT MEDICAL CARE, MANAGEMENT - COORDINATION AND COUNSELING > 50% OF TOTAL TIME I saw and evaluated the patient. I reviewed the resident?s note and agree with findings and plan as documented in the resident?s note. Upon my evaluation, this patient had a high probability of imminent or life- threatening deterioration due to septic shock, acute kidney injury which required my direct attention, intervention, and personal management. This time is exclusive of time spent on procedures, which are documented separately if performed. Still unclear if there is rectal perforation. Appreciate surgery and GI input. Digital disimpaction was recommended. Repeat imaging will be considered. Empiric antibiotics and wait for final culture results. Track lactic acid follow renal function. This morning bedside POCUS exam identifies low caliber IVC fully collapsible requiring repeat boluses. Continue to monitor and reassess. <Statement entered by Kip Cash MD - 07/05/25 18:48> I have reviewed the note and agree with the resident's assessment & plan with exceptions as below. I have personally reviewed labs, imaging, home meds/prior records, examined the patient, formulated and discussed management plan with the IM team. Patient examined at bedside today. No acute overnight events. Spoke with general surgeon, Dr. Moser, performed JANEL who believes that patient may have possible perforation in the rectum at the posterior wall. Spoke with family in regards to further workup and they decided to change patient's CODE STATUS to DNR. Further treatment options will be discussed with family as patient may need possible diverting colostomy. Performed a digital rectal impaction and removed stool burden and upon removal of stool burden, there was possible palpation of perforation in rectal wall posteriorly. GI on consult, will need to speak with family in regards to possible sigmoidoscopy for further evaluation. Patient weaned off pressors for likely distributive shock. Patient has had multiple sepsis reassessment and did not have Delayed cap refill, IVC remains to be compressible, will add additional 500 cc of LR. Will continue with fluids for management of hypoosmolar hypovolemic hyponatremia. Repeat hematology and chemistry in AM. #Acute encephalopathy multifactorial #Shock 2/2 sepsis #Hx of Paroxysmal Atrial Fibrillation #Melena #C/f rectal abscess vs perforation #PEG tube dependence #Severe obstipation #Acute kidney injury #Hyperoosmolar hypovolemic Hypernatremia #Normocytic anemia #Thrombocytosis #Diabetes mellitus #Sepsis Kip Cash, PGY-2 Internal Medicine Documentation for date of: 07/05/25 Subjective Subjective Interval history: Ms. Thao is a 85 y.o female with PMHx significant for dementia, paroxysmal atrial fibrillation, hypertension, diabetes, hyperlipidemia, ulcerative colitis, prior colon cancer, s/p PEG tube presented to [facility] [place] from [facility] for increased heart rate and AMS. Associated symptoms also include having dark stools, unsure how long patient has been having them. Patient is a poor historian and most of the history was obtained from the ER and chart review. Patient on exam localizes to pain on LUQ palpation. Patient is alert and oriented x 0, unable to state her name, but localizes to pain and able to follow limited commands such as opening her eyes. ED course: Patient presented with a BP of 112/70, HR 160, RR 29, and Temp of 100F, satting 100% on RA. Patient's labs are significant for leukocytosis, normocytic anemia, thrombocytosis, elevated sodium of 152, potassium 5.0, hypochloremia of 118, elevated creatinine of 1.5, BUN of 55, lactic of 3.4, negative troponin, decreased albumin, UA suggestive of UTI, noted to be cloudy, turbid, 1+ protein, 3+ blood, positive nitrite, positive leukocyte esterase, pyuria, and 4+ bacteria. Urine lites were ordered, urine random sodium 20.2, urine random potassium 47, urine random chloride 26.6. CT Chest Abdomen Pelvis was ordered d/t repeat LA being 12.9, despite only 3 hours from previous lactic acid. CXR doesn't show any active disease and no apparent signs of PNA, but pending final read. EKG shows Sinus Tachycardia, as p waves are seen in the leads, and the bus driver/monitor continues to show patient in Sinus tachycardia. In the ED, patient was given 2L LR, 25 mg of Diltiazem pushes, and given a dose of IV Rocephin and IV PPI gtt for patient's melena. Patient will be admitted to ICU for further management of hypovolemic vs septic shock in the setting of dehydration and UTI. Pending CT chest abdomen pelvis to r/o any abdominal pathology. 07/05/2025 Patient examined bedside still AOx0 not communicating, but localizing pain and eyes spontaneously opening. Spoke with who placed patient on DNR. Dr. Moser suspects a possible perforation but is unsure of patient is a good surgical candidate. Dr. Moser wants ICU team to do a manual disimpaction due to concern of spreading infection from water enemas. Her pressor requirement is decreasing to 0.03 levophed and now restarting her home midodrine. She is fluid responsive on NICOM. Repeat septic shock assessment showed fluid responsiveness per NICOM, physical exam shows cap refill <3 seconds, hands perfused and colored appropriately. Mental status continues to be AOx0. 385 ml UOP over last 12 hours. MAP 71. Lactic acid 4.0, infectious source most likely from UTI or potential perirectal abscess. Currently being treated with zosyn. Exam Vital Signs Temp Pulse Resp BP Pulse Ox O2 Del Method 97.7 F 152 H 33 H 51/43 L 94 L Room Air 07/05/25 04:13 07/05/25 06:36 07/05/25 04:51 07/05/25 06:36 07/05/25 04:51 07/05/25 04:13 Narrative Exam General Appearance: Pt is an ill appearing female in mild acute distress, cachetic, uncomfortable, spontaneously opens eyes. HEENT: NC/AT, no scleral icterus, conjunctival pallor, dry mucus membranes, edentulous Lungs: CTAB, no wheezes or crackles appreciated CVS: Tachycardic, S1/S2 heard, no murmurs or rubs appreciated ABD: Soft, tender to palpation to LUQ, site around G-tube appears mildy erythematous and crusted old blood. non-distended, BS + EXT: no deformity/edema/lesions/cyanosis/clubbing, radial pulses 2+ BL, DP pulses 2 + BL SKIN: Skin exam normal without any rashes except for scattered ecchymosis across her b/l extremities and poor skin turgor Neuro: Patient able to localize to pain and move her extremities. Alert and awake, able to follow limited commands. Rectum: Tone intact, significant hard impacted stool Objective Labs 07/05/25 04:36 07/05/25 04:36 Labs: Laboratory Results - last 24 hr 12/07/05/25 07/05/25 00:55 01:18 02:50 WBC 15.2 H RBC 3.33 L Hgb 8.6 L Hct 28.5 L MCV 86 MCH 25.8 MCHC 30.2 L RDW Std Deviation 53.3 H Plt Count 767 H D Neut % (Auto) 88 H Lymph % (Auto) 6 L Person % (Auto) 5 Eos % (Auto) 0 Baso % (Auto) 1 Neut # (Auto) 13.3 H Lymph # (Auto) 1.0 Person # (Auto) 0.8 Eos # (Auto) 0.0 Baso # (Auto) 0.1 Immature Gran # (Auto) 0.08 H Absolute Nucleated RBC 0.00 Immature Gran % 1 H Nucleated RBC % 0 Smear Path Review Sent to Pathologist PT 11.5 INR 1.1 APTT 20.0 L VBG pH VBG pCO2 VBG pO2 VBG O2 Sat (Oni) VBG Base Excess Sodium 152 H 152 H Potassium 5.0 4.7 Chloride 118 H 118 H Carbon Dioxide 20.2 22.1 Anion Gap 14 12 BUN 60 H 55 H Creatinine 1.5 H 1.3 Estim Creat Clear Calc 20.1 L 23.1 L eGFR 34 L 41 L BUN/Creatinine Ratio 40 H 42 H Glucose 145 H 107 H Calculated Osmolality 321 H 316 H Lactic Acid 3.4 H Calcium 9.7 9.3 Corrected Calcium 10.0 10.0 Magnesium Total Bilirubin 0.2 L 0.2 L AST 18 16 ALT 37 31 Alkaline Phosphatase 247 H 217 H D Troponin I 0.031 Total Protein 6.8 5.9 Albumin 3.6 3.1 L D Globulin 3.2 2.8 Albumin/Globulin Ratio 1.1 L 1.1 L Procalcitonin 0.29 TSH 1.91 Free T4 1.25 Ur Collection Type Catheter Urine Color Yellow Urine Clarity Turbid A Urine pH 6.5 Ur Specific [place] 1.014 Urine Protein 1+ A Urine Glucose (UA) Negative Urine Ketones Negative Urine Blood 3+ A Urine Nitrite Positive Urine Bilirubin Negative Urine Urobilinogen (Auto) Negative Ur Leukocyte Esterase Positive Urine RBC 144 H Urine WBC 349 H Ur Squamous Epith Cells 0 Amorphous Crystals Present A Urine Bacteria 4+ A Granular Casts < 1 Ur Random Sodium 20.2 Ur Random Potassium 47 Ur Random Chloride 26.6 L Blood Type A Positive Antibody Screen NEGATIVE Blood Bank Wristband ID Yes 12/15/25 12/15/25 12/15/25 03:58 04:36 07:58 WBC 14.3 H RBC 2.98 L Hgb 7.6 L Hct 25.3 L MCV 85 MCH 25.5 MCHC 30.0 L RDW Std Deviation 53.0 H Plt Count 657 H D Neut % (Auto) 88 H Lymph % (Auto) 6 L Person % (Auto) 5 Eos % (Auto) 0 Baso % (Auto) 1 Neut # (Auto) 12.6 H Lymph # (Auto) 0.8 L Person # (Auto) 0.7 Eos # (Auto) 0.0 Baso # (Auto) 0.1 Immature Gran # (Auto) 0.09 H Absolute Nucleated RBC 0.00 Immature Gran % 1 H Nucleated RBC % 0 Smear Path Review PT INR APTT VBG pH 7.31 L VBG pCO2 45 VBG pO2 39 VBG O2 Sat (Oni) 64 L VBG Base Excess -3 Sodium 153 H Potassium 4.6 Chloride 119 H Carbon Dioxide 20.2 Anion Gap 14 BUN 51 H Creatinine 1.3 Estim Creat Clear Calc 23.1 L eGFR 41 L BUN/Creatinine Ratio 39 H Glucose 101 Calculated Osmolality 317 H Lactic Acid 12.9 H* 3.8 H 4.0 H Calcium 9.1 Corrected Calcium 10.0 Magnesium 2.4 Total Bilirubin 0.3 AST < 8 ALT 26 Alkaline Phosphatase 206 H Troponin I Total Protein 5.6 L Albumin 2.9 L Globulin 2.7 Albumin/Globulin Ratio 1.1 L Procalcitonin TSH Free T4 Ur Collection Type Urine Color Urine Clarity Urine pH Ur Specific [place] Urine Protein Urine Glucose (UA) Urine Ketones Urine Blood Urine Nitrite Urine Bilirubin Urine Urobilinogen (Auto) Ur Leukocyte Esterase Urine RBC Urine WBC Ur Squamous Epith Cells Amorphous Crystals Urine Bacteria Granular Casts Ur Random Sodium Ur Random Potassium Ur Random Chloride Blood Type Antibody Screen Blood Bank Wristband ID ABG Interpretation ABG results: 07/05/25 07:58 VBG pH 7.31 L VBG pCO2 45 VBG pO2 39 VBG Base Excess -3 Quality Measures Quality Measures sepsis Current suspected stage: sepsis Possible source: genitourinary Blood cultures ordered: yes Antibiotic ordered: Yes Advance care planning discussed with:: spouse Assessment & Plan Assessment Current Active Medications: Generic Name Dose Route Start Last Admin Trade Name Freq PRN Reason Stop Dose Admin Pantoprazole Sodium 80 mg in 100 mls @ 10 mls/hr 07/05/25 00:35 07/05/25 01:07 Protonix/Ns 80mg Iv Premix IV 07/05/25 10:34 10 mls/hr X1 ONE Administration Piperacillin/Tazobactam/Dextrose 3.375 gm in 50 mls @ 12.5 mls/hr 07/05/25 14:00 Zosyn IV 07/12/25 13:59 Q8HR LORNE Protocol Dextrose/Sodium Chloride 1,000 mls @ 60 mls/hr 07/05/25 06:15 D5-Ns IV 08/04/25 06:14 .[id number] LORNE Norepinephrine/Dextrose 8 mg in 250 mls @ 4.678 mls/hr 07/05/25 06:27 07/05/25 07:40 Levophed In D5w 8mg/250ml IV 08/04/25 06:26 0.11 mcg/kg/min .Q24H PRN 10.291 mls/hr PER PROTOCOL Titration Protocol 0.05 MCG/KG/MIN Midodrine 5 mg 07/05/25 04:24 Midodrine 5 Mg Tablet PO 08/04/25 05:59 On Hold: 07/05/25 06:09 Q6HR PRN SBP < 90 or MAP < 65 Plan Ms. Thao is a 85 y.o female with PMHx significant for dementia, paroxysmal atrial fibrillation, hypertension, diabetes, hyperlipidemia, ulcerative colitis, prior colon cancer, s/p PEG tube presented to [facility] [place] from [facility] for increased heart rate and AMS and admitted to ICU for further management of hypovolemic vs septic shock in the setting of dehydration and UTI. CTCAP shows large amounts of stool throughout colon. Large amounts of stool in the rectum with possible fluid collection peripheral to the rectum, consider perirectal abscess or incompetent rectum. NEURO #Acute encephalopathy multifactorial DDx: sepsis, hypernatremia, modest uremia vs worsening dementia Dx: CMP, F/u Infectious workup (blood/urine cultures) Rx:Treat underlying sepsis and metabolic derangements with IVF and Abx, Correct hypernatremia gradually, Avoid sedating medications Treatment Review:Mental status to be reassessed with hemodynamic stabilization and lactate clearance. CARDIO #Shock 2/2 sepsis DDx: Septic shock (UTI and/or perirectal abscess) vs Hypovolemic shock (dehydration and/or ?GI bleed) fluid responsive on NICOM Dx: EKG shows sinus tachycardia but has a history of paroxysmal atrial fibrillation, Elevated Lactate, patient extremly dry with poor skin turgor, CT chest/abdomen/pelvis, Blood/Urine cultures x2, Bedside echo shows good contractility of atriums and ventricles Rx: Continue aggressive IV fluid resuscitation, Vasopressors if MAP <65 despite fluids Treatment Review: Continue to reassess based on lactate clearance, MAP response, and imaging results. #Hx of Paroxysmal Atrial Fibrillation Currently in sinus tachycardia. Dx: Patient was discharged in March 2025 with Amiodarone 200mg BID via GT, has a hx of Paroxysmal A-fib on previous EKGs; currently not on any anticoagulation despite [employer] being 4 d/t hx of GI bleed Rx: Continue to monitor on tele monitor, EKG if needed, and consider adding Amiodarone if needed 07/05 holding amio as patient is not tolerating PO at the moment, is hypotensive on pressors, amio has a long half life, so no treatment indicated at the moment. Treatment Review: PULM No active issues GI/FEN #Melena #C/f rectal abscess vs perforation DDx: Rectal abscess/perforation vs colitis flare vs. PEG tube complications Dx: Patient presenting with LUQ abdominal pain with guarding on palpation; CT abdomen/pelvis, Serial hemoglobin, Stool guaiac positive, Dr. Moser is concerned that there may be a perforation on posterior wall following JANEL. Rx:Continue IV PPI drip, Hold tube feeds for now, Occult blood positive in the ED, NPO except meds via GT, GI consult. Manual disimpaction to evaluate rectal abscess vs perforation. Dr. Moser would like us to consider sigmoidoscopy. Treatment Review:Resume nutrition once hemodynamically stable and bleeding ruled out. #PEG tube dependence Dx: Takes home meds via G-tube Rx: Can restart home GT meds when patient is able to tolerate, pending imaging read on CT C/A/P #Severe obstipation Hard impacted stool on JANEL. Abundant amounts of stool seen on CT Rx: Initially given Laxative but withheld after tele-rad noted possibility of rectal rupture. Free water enemas. General surgery consulted, requested to hold enemas due to concern of perforation may spread infection. Manual disimpaction done in ICU. RENAL #Acute kidney injury DDx: Pre-renal LU from dehydration vs Sepsis-associated LU vs ATN (if prolonged hypoperfusion) Dx: Daily BMP, Strict I's/O's Rx: IV fluids with careful sodium correction, Avoid nephrotoxins, Adjust medications for renal dosing Treatment Review: #Hypernatremia DDx:dehydration vs chronic SIADH Dx: Urine lytes, Strict I's/O's Rx: Trend Na Q4HR, consider D5 maintenance gentle fluids; 2L free water deficit will begin correcting once patient has been stabilized, continuing with LR. HEME/ONC #Normocytic anemia DDx: Acute vs chronic GI blood loss vs Anemia of chronic disease Dx: Serial CBC, Iron studies if stable, Transfusion threshold <7 g/dL or symptomatic Rx:Monitor hemoglobin and Hold anticoagulation given bleeding concern, Type and Screen ordered Treatment Review: Transfusion strategy based on hemodynamics and bleeding. #Thrombocytosis DDx: Reactive thrombocytosis (infection/inflammation) vs essential thrombocythemia Dx: elevated PLT, dehydration seen on PE Rx: treat underlying sepsis ENDO #Diabetes mellitus DDx: Stress hyperglycemia Dx: q6h glucose monitoring Rx: Sliding scale insulin, Avoid hypoglycemia, Target BG is 140-180 Treatment Review: ID #Sepsis DDx:2/2 to UTI and or Intra-abdominal infection vs bacteremia Dx: Blood cultures x2, Urine culture, CT chest/abdomen/pelvis Rx: Continue IV Zosyn, Escalate antibiotics if clinical deterioration, Trend lactate q4?6h Treatment Review: Antibiotics to be narrowed based on culture data MSK No active issues PSYCH No active issues Health Maintenance: DVT prophylaxis: SCDs in lieu of possible GI Bleed GI prophylaxis: Protonix gtt Diet: NPO, meds via G-tube Velazquez: Yes, doesn't use a chronic velazquez at [facility] Lines: PIV Drips: Levo 0.03 Vent: No CODE STATUS: DNR Disposition: Admitted to ICU for shock and hypernatremia. Patient's care and plan discussed with my attending, Dr. Trevino and supervising resident Dr. Cash. Note written by Rylan Murrieta PGY-1
--- NOTE | 2025-07-05 10:51 | PC.SS ---
PRESS SUPERVISOR conducted phone contact with the patient?s spouse, Adam Thao ; to conduct initial assessment and to discuss discharge planning on behalf of the patient.? Patient is a resident of [facility] .? Patient has been at the [facility] for approximately one month.? Patient is in possession of a PEG tube.? The patient is bedbound.? Patient does not require the use of home oxygen.? Patient requires assistance with the completion of ADL?s.? Patient?s medical surrogate decision maker is spouse, Adam Thao.? Patient?s PCP is Dr. Mistry.? Plan is for the patient to return to [facility] at the time of discharge.? staff services manager to assist with arranging transportation on behalf of the patient. ?No discharge needs identified by the patient?s spouse. ?No further intervention required at this time, social science research assistant will be available to address any further concerns.? Next of Kin: Adam Thao D/C Plan: [facility]
--- NOTE | 2025-07-05 16:28 | PD.SURCONS ---
HPI Consult details Consult date: 07/05/25 Reason for consultation narrative: The patient was seen in consultation today because of the CT finding of perforation of the rectum. History of present illness: Patient is admitted with a diagnosis of altered mental status and tachycardia and she has been in and out of hospital for many times. She also had a history of melena. The patient has been scoped both upper and lower endoscopy by Dr. Montes in various admissions. She was also treated treated by the current journeyman carpenter for atrial fibrillation and flutter and acute kidney injury. Other medical problem consist of dementia and diabetes hypertension failure to thrive. She has had a PEG tube inserted through which feeding was given. She is staying in the care home and was transferred here for further care. The patient is not able to give any history and most of it is obtained from the chart as well as from other documentation by the hospitalist Past Medical History Past Medical History NEUROLOGIC: Positive Dementia and Alzheimer's Disease; Negative Neurological Disorders, Cerebrovascular Accident or Seizures CARDIAC: Positive Cardiac Disorders (AFIB), Atrial Fibrillation, Hypercholesterolemia, Hypertension and Hypotension; Negative Congestive Heart Failure RESPIRATORY: Positive Pneumonia; Negative Chronic Obstructive Pulmonary Disease (COPD) or Asthma GASTROINTESTINAL: Positive Gastrointestinal Disorders, Gastrointestinal Bleed, Colitis, Colorectal Cancer and Gastroesophageal Reflux Disease GENITOURINARY: Negative Genitourinary Disorders or Renal Disease REPRODUCTIVE: Positive Previous Pregnancies MUSCULOSKELETAL: Positive Musculoskeletal Disorders, Arthritis and Carpal Tunnel Syndrome ENT: Positive Cataracts; Negative Glaucoma ENDOCRINE: Positive Diabetes Mellitus Type 2; Negative Endocrine Disorders or Diabetes Mellitus Type 1 HEMATOLOGIC: Negative Blood Disorders or Sickle Cell Disease PSYCHO/SOCIAL: Positive Depression and Anxiety OTHER HISTORY: Positive Hospitalization, Falls, Chicken Pox, Measles, Mumps, Cancer and Colorectal Cancer; Negative Blood Transfusions or Anesthesia Reactions Surgical History SURGICAL: Positive Eye Surgery, Tonsillectomy, Abdominal Surgery, Gastrostomy, Bowel Surgery, Lumpectomy and Hysterectomy; Negative Cardiac Surgery Social History SMOKING STATUS: Unknown if ever smoked SECOND HAND EXPOSURE: No SUBSTANCE USE: does not use Past Medical History Comments PMH COMMENT: PMHx: As mentioned above PSHx: Peg tube placement Medications: Per SNF med review: patient takes acetaminophen 325 mg 2 tabs as needed mild pain, Cholestyramine 20 gram via GT, Dicyclomine 1 capsule GT, Dulcolax Rectal Suppository q24 hours PRN, Ferrous Sulfate 22mg via GT, Loperamide 2mg GT for loose stools, Midodrine 5mg Q6HR TID for SBP <95, Pantoprazole 40mg QD, and Ascorbic acid 500mg QD Allergies: NKDA Living:Currently resides at [facility] Home Medications and Allergies Home Medications ?Medication ?Instructions ?Recorded ?Confirmed ?Type ascorbic acid (vitamin C) 500 mg 500 mg feeding tube QDAY 05/26/25 05/26/25 History chewable tablet (Acerola C) ferrous sulfate 220 mg (44 mg 22 mg feeding tube QDAY 05/26/25 05/26/25 History iron)/5 mL oral elixir megestrol 400 mg/10 mL (10 mL) 400 mg feeding tube QDAY 05/26/25 05/26/25 History oral suspension midodrine 5 mg tablet 5 mg feeding tube [id number] 05/26/25 05/26/25 History pantoprazole 40 mg granules 40 mg feeding tube QDAY 05/26/25 05/26/25 History delayed-release for susp in packet silver sulfadiazine 1 % topical 1 applic topical QDAY 05/26/25 05/26/25 History cream (Silvadene) Allergies Allergy/AdvReac Type Severity Reaction Status Date / Time No Known Allergies Allergy Verified 07/05/25 00:28 Exam Vital Signs Temp Pulse Resp BP Pulse Ox O2 Del Method 97.7 F 97 28 H 102/53 L 99 Room Air 07/05/25 04:13 07/05/25 12:30 07/05/25 10:25 07/05/25 11:05 07/05/25 11:05 07/05/25 04:13 Narrative Exam Physical examination revealed 86-year-old white female who is bedbound and is barely able to speak. She is very thin weighing only about 85 pounds her vital signs are normal but the blood pressure is maintained with the Levophed when I saw her in the morning. Constitutional Constitutional: no acute distress Routine Abdominal Exam Comments: Examination of the abdomen showed midline surgical scar in the lower abdomen. There are no signs of peritonitis but patient did have some tenderness of the left lower quadrant. Routine Rectal Exam Comments: Rectal examination revealed impacted stool with a possible rent in the posterior rectal wall which may be the perforation that was seen on the CT scan Results Results: Laboratory Laboratory Narrative: Patient's laboratory Showed acute kidney injury with elevated BUN/creatinine. She is anemic with a hemoglobin of 7.8 and she had mild leukocytosis around 14,000-15,000 Results: Imaging Imaging narrative: I reviewed the CT scan of the abdomen showed considerable amount of stool in the colon and large fecal mass in the rectum. There was some Eugenio rectal fluid collection suggesting an abscess. The [facility] radiologist read that there is a perforation in the rectum Assessment & Plan Additional Assessment Additional comments: Impression: Possible perforation of the rectum Diabetes mellitus Hypertension Atrial fibrillation Acute kidney injury Dementia Hyperlipidemia Recurrent GI bleed Anemia Plan Plan: If the patient has a perforation of the rectum this is extraperitoneal and therefore will not cause any significant hemodynamic instability. She has had a persistent urinary tract infection which may be the cause of her hemodynamic instability. If indeed she had a perforated rectum she will require a colostomy and later on repair of the rectum. It is difficult to do the repair of the rectum transanally especially if the injury is old. Only thing we can hope for is absent of the fecal stream which can be accomplished with the end sigmoid colon colostomy which will be permanent. Because of the patient's morbid condition and the lack of quality of life could be had 3 major surgery is a great concern. I talked with the who wants to make her a DNR and I agree strongly with this approach. At the present time I would disimpact the rectum and see if the patient has any tears. We could do a sigmoidoscopy to look for a tear but at this time it looks to be purely academic. Thank you for allowing me to participate in your care
[2025-07-05] MEDS: RINGERS LACTATED 500 ML 500 ML 999 ML IV (17:45)
[2025-07-05 20:11] LABS: Hematocrit 24.0 % (36.0-46.0)
--- NOTE | 2025-07-05 20:12 | PD.IMCONS ---
HPI Data of Consult Requesting Physician: Arthur Emmanuel MD Primary Care Provider: Liam Mistry MD Consult Narrative Reason for consult: Abnormal CTAP. History of present illness: 85 years of female evaluated in the ICU for history of melena as well as abnormal CTA angio of the chest abdomen pelvis showed large amount of stool in the rectum and perirectal collection of fluid abscess versus perforation My surgical colleague has done a rectal exam there is a lot of stool impaction but no clear mass seen patient had a colonoscopy on 03/30/2025 which showed transverse colon polyp removed endoscopically and descending colon polyp removed endoscopically 03/26/2025 patient had a placement of a PEG tube for enteral hyperalimentation Mucosal ulceration of the rectum cc:: cc: Arthur Emmanuel MD Review of Systems Review of Systems ROS Unobtainable: unobtainable due to medical condition Past Medical History Surgical History OTHER SURGICAL HX: Dementia Paroxysmal atrial fibrillation Hypertension Diabetes mellitus type 2 ulcerative colitis history of Meds Home Medications and Allergies Home Medications ?Medication ?Instructions ?Recorded ?Confirmed ?Type ascorbic acid (vitamin C) 500 mg 500 mg feeding tube QDAY 05/26/25 05/26/25 History chewable tablet (Acerola C) ferrous sulfate 220 mg (44 mg 22 mg feeding tube QDAY 05/26/25 05/26/25 History iron)/5 mL oral elixir megestrol 400 mg/10 mL (10 mL) 400 mg feeding tube QDAY 05/26/25 05/26/25 History oral suspension midodrine 5 mg tablet 5 mg feeding tube [id number] 05/26/25 05/26/25 History pantoprazole 40 mg granules 40 mg feeding tube QDAY 05/26/25 05/26/25 History delayed-release for susp in packet silver sulfadiazine 1 % topical 1 applic topical QDAY 05/26/25 05/26/25 History cream (Silvadene) Allergies Allergy/AdvReac Type Severity Reaction Status Date / Time No Known Allergies Allergy Verified 07/05/25 00:28 Exam Vital Signs Temp Pulse Resp BP Pulse Ox O2 Del Method 97.7 F 97 40 H 105/44 L 100 Room Air 07/05/25 04:13 07/05/25 17:45 07/05/25 17:45 07/05/25 18:00 07/05/25 18:00 07/05/25 04:13 Constitutional Comments: Chronically ill-appearing Routine Respiratory Exam Comments: Scattered rhonchi Routine Abdominal Exam Comments: Somewhat distended no rigidity hypoactive bowel sounds Results Labs 07/05/25 04:36 07/05/25 04:36 Labs: Short CBC 07/05/25 07/05/25 Range/Units 00:55 04:36 WBC 15.2 H 14.3 H (3.6-11.0) Thou/mm3 Hgb 8.6 L 7.6 L (12.0-16.0) g/dL Hct 28.5 L 25.3 L (36.0-46.0) % Plt Count 767 H D 657 H D (140-440) Thou/mm3 BMP 07/05/25 07/05/25 07/05/25 00:55 02:50 04:36 Sodium 152 H 152 H 153 H Potassium 5.0 4.7 4.6 Chloride 118 H 118 H 119 H Carbon Dioxide 20.2 22.1 20.2 BUN 60 H 55 H 51 H Creatinine 1.5 H 1.3 1.3 Glucose 145 H 107 H 101 Calcium 9.7 9.3 9.1 Cardiac Enzymes 07/05/25 Range/Units 02:50 Troponin I 0.031 (0.0-0.045) ng/mL Liver Function 07/05/25 07/05/25 07/05/25 Range/Units 00:55 02:50 04:36 Total Bilirubin 0.2 L 0.2 L 0.3 (0.3-1.2) mg/dL AST 18 16 < 8 (0-34) U/L ALT 37 31 26 (10-49) U/L Alkaline Phosphatase 247 H 217 H D 206 H (46-116) U/L Albumin 3.6 3.1 L D 2.9 L (3.4-4.8) gm/dL Urine 07/05/25 Range/Units 01:18 Urine Color Yellow (Lt Yel-Yel) Urine Clarity Turbid A (Clear/Hazy) Urine pH 6.5 (5.0-7.0) Ur Specific Milton 1.014 (1.001-1.035) Urine Protein 1+ A (Neg - Trace) Urine Glucose (UA) Negative (Negative) ABG Interpretation ABG results: 07/05/25 07:58 VBG pH 7.31 L VBG pCO2 45 VBG pO2 39 VBG Base Excess -3 Assessment and Plan Additional Assessment & Plan Additional Plan: # Abnormal CTAP showing perirectal fluid possible perforation however abdominal findings are not of an acute abdomen and there is no free air seen on the CTA Patient did have ulceration on 03/30/2025 colonoscopy which I believe was due to most likely ischemia not ulcerative colitis At the moment I recommend conservative management with IV antibiotics lets see how the patient does over next 24 to 48 hours Before jumping into any kind of a surgical intervention I will also speak with my surgical colleague Thank you very much for the opportunity to participate in the care of this patient
[2025-07-05 20:18] LABS: Hemoglobin 7.5 g/dL (12.0-16.0)
[2025-07-05 23:00] LABS: Albumin, Serum 2.9 gm/dL (3.4-4.8); Anion Gap 14 (7-16); BUN/Creatinine Ratio 31 Ratio (12-20); Blood Urea Nitrogen 43 mg/dL (9-23); Calcium 8.9 mg/dL (8.3-10.6); Calcium (Corrected) 9.8 mg/dL (8.5-10.1); Carbon Dioxide 22.1 mMol/L (20.0-31.0); Chloride 118 mMol/L (98-107); Creatinine (Component) 1.4 mg/dL (0.6-1.3); Estimated Creatinine Clearance 18.3 mL/min (>60); Glucose 73 mg/dL (74-106); Osmolality,Calculated 315 (275-295); Phosphorous 5.8 mg/dL (2.4-5.1); Potassium 4.4 mMol/L (3.4-5.1); Sodium 154 mMol/L (136-145); eGFR 37 See Note
[2025-07-06] VITALS (51 sets, daily range): BP systolic 71–161; BP diastolic 31–108; PULSE 67–98; RESP 16–36; TEMP 36–36.7; O2SAT 89–100; BMI 17.2
[2025-07-06] MEDS: DEXTROSE 5%-WATER 1,000 ML 60 ML IV (00:35)
[2025-07-06] MEDS: RINGERS LACTATED 500 ML 500 ML 999 ML IV (01:46)
[2025-07-06 05:50] LABS: Basophils # (Auto) 0.1 Thou/mm3 (0.0-0.2); Basophils % (Auto) 1 % (0-2.5); Eosinophils # (Auto) 0.0 Thou/mm3 (0.0-0.5); Eosinophils % (Auto) 0 % (0-10); Immature Granulocytes Auto 0.05 Thou/mm3 (0.00-0.00); Lymphocytes # (Auto) 0.6 Thou/mm3 (1.0-4.8); Lymphocytes % (Auto) 7 % (10-50); Mean Corpuscular HGB Conc 31.0 g/dl (31.0-37.0); Mean Corpuscular Hemoglobin 25.8 pg (25.0-35.0); Mean Corpuscular Volume 84 fL (80-100); Monocytes # (Auto) 0.3 Thou/mm3 (0.0-0.8); Monocytes % (Auto) 4 % (0-12); Neutrophils # (Auto) 7.4 Thou/mm3 (1.8-7.7); Neutrophils % (Auto) 87 % (37-80); Nucleated Red Blood Cell # 0.00 Thou/mm3 (0.00-0.00); Nucleated Red Blood Cell % 0 /100 WBC (0); Platelet Count 582 Thou/mm3 (140-440); RDW Standard Deviation 51.9 fL (36.4-46.3); Red Blood Count 2.36 Miln/mm3 (4.00-5.20); White Blood Count 8.5 Thou/mm3 (3.6-11.0)
[2025-07-06] MEDS: PIPER/TAZO 3.375 GM PREMIX 3.375 GM/50 ML BAG IV ×3 (06:02→21:16)
[2025-07-06 06:16] LABS: INR 1.1 (0.9-1.3); Partial Thromboplastin Time 24.1 Seconds (22.0-36.0); Prothrombin Time 11.9 Seconds (9.0-12.2)
[2025-07-06 06:26] LABS: Hematocrit 19.7 % (36.0-46.0); Hemoglobin 6.1 g/dL (12.0-16.0)
[2025-07-06 06:55] LABS: Alanine Aminotransferase 18 U/L (10-49); Albumin, Serum 2.6 gm/dL (3.4-4.8); Albumin/Globulin Ratio 1.1 (1.2-2.2); Alkaline Phosphatase 141 U/L (46-116); Anion Gap 14 (7-16); Aspartate Amino Transferase 13 U/L (0-34); BUN/Creatinine Ratio 30 Ratio (12-20); Bilirubin,Total 0.2 mg/dL (0.3-1.2); Blood Urea Nitrogen 42 mg/dL (9-23); Calcium 8.6 mg/dL (8.3-10.6); Calcium (Corrected) 9.7 mg/dL (8.5-10.1); Carbon Dioxide 21.2 mMol/L (20.0-31.0); Chloride 119 mMol/L (98-107); Creatinine (Component) 1.4 mg/dL (0.6-1.3); Estimated Creatinine Clearance 18.8 mL/min (>60); Globulin 2.4 gm/dL (2.3-3.5); Glucose 89 mg/dL (74-106); Magnesium 2.3 mg/dL (1.6-2.6); Osmolality,Calculated 314 (275-295); Phosphorous 5.3 mg/dL (2.4-5.1); Potassium 3.9 mMol/L (3.4-5.1); Sodium 154 mMol/L (136-145); Total Protein 5.0 gm/dL (5.7-8.2); eGFR 37 See Note
--- NOTE | 2025-07-06 07:23 | ESPR_ITS ---
<Statement entered by Jo Trevino MD - 07/07/25 12:10> TOTAL TIME: 45MINUTES ON DIRECT MEDICAL CARE, MANAGEMENT - COORDINATION AND COUNSELING > 50% OF TOTAL TIME I saw and evaluated the patient. I reviewed the resident?s note and agree with findings and plan as documented in the resident?s note. Mrs. Thao is improving off pressors Bowel movements have been noted abdominal pain is improved Appropriately fluid resuscitated; improving kidney function Can transfer out of ICU. Remains DNR <Statement entered by Kip Cash MD - 07/06/25 17:30> I have reviewed the note and agree with the resident's assessment & plan with exceptions as below. I have personally reviewed labs, imaging, home meds/prior records, examined the patient, formulated and discussed management plan with the IM team. Pt examined at bedside today. No acute overnight events. Patient weaned off Levophed. Spoke with general surgeon, Dr. Moser, who does not recommend Gastrografin study for further evaluation of possible rectal perforation as it will likely not pass through lower colon. Dr. Moser is agreeable to resuming tube feeds for the patient. Spoke with GI, Dr. Montes, will also agrees with resuming tube feeds for the patient. Spoke with patient's family today, will be likely pursuing hospice in the future. CODE STATUS remains to be DNR. Patient continued to have bowel movements at this time. Hypernatremia continuing to be corrected with D5W, will continue renal panels every 4 hours. Patient medically cleared to be downgraded to hospitalist team. #Acute encephalopathy multifactorial #Shock 2/2 sepsis #Hx of Paroxysmal Atrial Fibrillation #Melena #C/f rectal abscess vs perforation #PEG tube dependence #Severe obstipation #Acute kidney injury #Hyperoosmolar hypovolemic Hypernatremia #Normocytic anemia #Thrombocytosis #Diabetes mellitus #Sepsis Kip Cash, PGY-2 Internal Medicine Documentation for date of: 07/06/25 Subjective Subjective Interval history: Ms. Thao is a 85 y.o female with PMHx significant for dementia, paroxysmal atrial fibrillation, hypertension, diabetes, hyperlipidemia, ulcerative colitis, prior colon cancer, s/p PEG tube presented to [facility] from [facility] for increased heart rate and AMS. Associated symptoms also include having dark stools, unsure how long patient has been having them. Patient is a poor historian and most of the history was obtained from the ER and chart review. Patient on exam localizes to pain on LUQ palpation. Patient is alert and oriented x 0, unable to state her name, but localizes to pain and able to follow limited commands such as opening her eyes. ED course: Patient presented with a BP of 112/70, HR 160, RR 29, and Temp of 100F, satting 100% on RA. Patient's labs are significant for leukocytosis, normocytic anemia, thrombocytosis, elevated sodium of 152, potassium 5.0, hypochloremia of 118, elevated creatinine of 1.5, BUN of 55, lactic of 3.4, negative troponin, decreased albumin, UA suggestive of UTI, noted to be cloudy, turbid, 1+ protein, 3+ blood, positive nitrite, positive leukocyte esterase, pyuria, and 4+ bacteria. Urine lites were ordered, urine random sodium 20.2, urine random potassium 47, urine random chloride 26.6. CT Chest Abdomen Pelvis was ordered d/t repeat LA being 12.9, despite only 3 hours from previous lactic acid. CXR doesn't show any active disease and no apparent signs of PNA, but pending final read. EKG shows Sinus Tachycardia, as p waves are seen in the leads, and the x ray technician continues to show patient in Sinus tachycardia. In the ED, patient was given 2L LR, 25 mg of Diltiazem pushes, and given a dose of IV Rocephin and IV PPI gtt for patient's melena. Patient will be admitted to ICU for further management of hypovolemic vs septic shock in the setting of dehydration and UTI. Pending CT chest abdomen pelvis to r/o any abdominal pathology. 07/05/2025 Patient examined bedside still AOx0 not communicating, but localizing pain and eyes spontaneously opening. Spoke with who placed patient on DNR. Dr. Moser suspects a possible perforation but is unsure of patient is a good surgical candidate. Dr. Moser wants ICU team to do a manual disimpaction due to concern of spreading infection from water enemas. Her pressor requirement is decreasing to 0.03 levophed and now restarting her home midodrine. She is fluid responsive on NICOM. Repeat septic shock assessment showed fluid responsiveness per NICOM, physical exam shows cap refill <3 seconds, hands perfused and colored appropriately. Mental status continues to be AOx0. 385 ml UOP over last 12 hours. MAP 71. Lactic acid 4.0, infectious source most likely from UTI or potential perirectal abscess. Currently being treated with zosyn. 07/06/2025 Patient examined bedside today abdomen felt much softer, she had bowel movement overnight. Dr. Moser was spoken to so Gastrografin study not needed to evaluate for abscess. Most likely not a candidate for surgery. Lactate acid has down trended. Patient can tolerate PEG tubes of 40 mL/h through PEG tube and other 40 mL through the IV D5W. Dr Moser said it is okay to put her on diet. She received 2 units of PRBCs today because her hemoglobin was 6.1. Her blood pressures have been stable and off of pressors since the night. She is safe to downgrade to floors. Exam Vital Signs Temp Pulse Resp BP Pulse Ox O2 Del Method 97.8 F 85 18 89/58 L 98 Room Air 07/06/25 04:00 07/06/25 06:39 07/06/25 06:39 07/06/25 06:00 07/06/25 06:39 07/05/25 04:13 Narrative Exam General Appearance: Pt is an ill appearing female, cachetic, uncomfortable, spontaneously opens eyes. HEENT: NC/AT, no scleral icterus, conjunctival pallor, dry mucus membranes, edentulous Lungs: CTAB, no wheezes or crackles appreciated CVS: Tachycardic, S1/S2 heard, no murmurs or rubs appreciated ABD: Soft, diffuse TTP, site around G-tube appears crusted old blood. non- distended, BS + EXT: no deformity/edema/lesions/cyanosis/clubbing, radial pulses 2+ BL, DP pulses 2 + BL SKIN: Skin exam normal without any rashes except for scattered ecchymosis across her b/l extremities and poor skin turgor. Bony prominence, 4, around spine. Neuro: Patient able to localize to pain and move her extremities. Alert and awake, able to follow limited commands. Rectum: Tone intact, significant hard impacted stool, empty space in posterior rectal wall c/f perforation or diverticule Objective Labs 07/06/25 04:43 07/06/25 16:02 Labs: Laboratory Results - last 24 hr 07/05/25 07/05/25 07/05/25 07:58 19:45 21:55 WBC RBC Hgb 7.5 L Hct 24.0 L MCV MCH MCHC RDW Std Deviation Plt Count Neut % (Auto) Lymph % (Auto) Weber % (Auto) Eos % (Auto) Baso % (Auto) Neut # (Auto) Lymph # (Auto) Weber # (Auto) Eos # (Auto) Baso # (Auto) Immature Gran # (Auto) Absolute Nucleated RBC Immature Gran % Nucleated RBC % PT INR APTT VBG pH 7.31 L VBG pCO2 45 VBG pO2 39 VBG O2 Sat (Oni) 64 L VBG Base Excess -3 Sodium 154 H Potassium 4.4 Chloride 118 H Carbon Dioxide 22.1 Anion Gap 14 BUN 43 H Creatinine 1.4 H Estim Creat Clear Calc 18.3 L eGFR 37 L BUN/Creatinine Ratio 31 H Glucose 73 L Calculated Osmolality 315 H Lactic Acid 4.0 H Calcium 8.9 Corrected Calcium 9.8 Phosphorus 5.8 H Magnesium Total Bilirubin AST ALT Alkaline Phosphatase Total Protein Albumin 2.9 L Globulin Albumin/Globulin Ratio 07/06/25 04:43 WBC 8.5 D RBC 2.36 L Hgb 6.1 L* Hct 19.7 L* MCV 84 MCH 25.8 MCHC 31.0 RDW Std Deviation 51.9 H Plt Count 582 H D Neut % (Auto) 87 H Lymph % (Auto) 7 L Weber % (Auto) 4 Eos % (Auto) 0 Baso % (Auto) 1 Neut # (Auto) 7.4 Lymph # (Auto) 0.6 L Weber # (Auto) 0.3 Eos # (Auto) 0.0 Baso # (Auto) 0.1 Immature Gran # (Auto) 0.05 H Absolute Nucleated RBC 0.00 Immature Gran % 1 H Nucleated RBC % 0 PT 11.9 INR 1.1 APTT 24.1 VBG pH VBG pCO2 VBG pO2 VBG O2 Sat (Oni) VBG Base Excess Sodium 154 H Potassium 3.9 D Chloride 119 H Carbon Dioxide 21.2 Anion Gap 14 BUN 42 H Creatinine 1.4 H Estim Creat Clear Calc 18.8 L eGFR 37 L BUN/Creatinine Ratio 30 H Glucose 89 Calculated Osmolality 314 H Lactic Acid Calcium 8.6 Corrected Calcium 9.7 Phosphorus 5.3 H Magnesium 2.3 Total Bilirubin 0.2 L AST 13 ALT 18 Alkaline Phosphatase 141 H D Total Protein 5.0 L Albumin 2.6 L Globulin 2.4 Albumin/Globulin Ratio 1.1 L ABG Interpretation ABG results: 07/05/25 07:58 VBG pH 7.31 L VBG pCO2 45 VBG pO2 39 VBG Base Excess -3 Quality Measures Quality Measures sepsis Current suspected stage: ruled out Possible source: genitourinary Blood cultures ordered: yes Antibiotic ordered: Yes Advance care planning discussed with:: spouse Assessment & Plan Assessment Current Active Medications: Generic Name Dose Route Start Last Admin Trade Name Freq PRN Reason Stop Dose Admin Piperacillin/Tazobactam/Dextrose 3.375 gm in 50 mls @ 12.5 mls/hr 07/05/25 14:00 07/06/25 06:02 Zosyn IV 07/12/25 13:59 12.5 mls/hr Q8HR LORNE Administration Protocol Norepinephrine/Dextrose 8 mg in 250 mls @ 4.678 mls/hr 07/05/25 06:27 07/05/25 16:00 Levophed In D5w 8mg/250ml IV 08/04/25 06:26 0 mcg/kg/min .Q24H PRN 0 mls/hr PER PROTOCOL Titration Protocol 0.05 MCG/KG/MIN Dextrose 1,000 mls @ 60 mls/hr 07/06/25 00:30 07/06/25 00:35 D5w IV 08/05/25 00:29 60 mls/hr .[id number] LORNE Administration Midodrine 5 mg 07/05/25 04:24 Midodrine 5 Mg Tablet PO 08/04/25 05:59 Q6HR PRN SBP < 90 or MAP < 65 Plan Ms. Thao is a 85 y.o female with PMHx significant for dementia, paroxysmal atrial fibrillation, hypertension, diabetes, hyperlipidemia, ulcerative colitis, prior colon cancer, s/p PEG tube presented to [facility] from [facility] for increased heart rate and AMS and admitted to ICU for further management of hypovolemic vs septic shock in the setting of dehydration and UTI. CTCAP shows large amounts of stool throughout colon. Large amounts of stool in the rectum with possible fluid collection peripheral to the rectum, consider perirectal abscess or incompetent rectum. Patient's blood pressures have been stable without pressors, is safe to downgrade to floors. NEURO #Acute encephalopathy multifactorial - ongoing DDx: sepsis, hypernatremia, vs worsening dementia Dx: CMP, F/u Infectious workup (blood/urine cultures) Rx:Treat underlying sepsis and metabolic derangements with IVF and Abx, Correct hypernatremia gradually, Avoid sedating medications Treatment Review:Mental status to be reassessed with hemodynamic stabilization and lactate clearance. CARDIO #Shock 2/2 sepsis - resolved DDx: Septic shock (UTI and/or perirectal abscess) vs Hemmorhagic shock (GI bleed) fluid responsive on NICOM Dx: EKG shows sinus tachycardia but has a history of paroxysmal atrial fibrillation, Elevated Lactate, patient extremly dry with poor skin turgor, CT chest/abdomen/pelvis, Blood/Urine cultures x2, Bedside echo shows good contractility of atriums and ventricles Rx: Continue aggressive IV fluid resuscitation, Vasopressors if MAP <65 despite fluids Treatment Review: Continue to reassess based on lactate clearance, MAP response, and imaging results. #Hx of Paroxysmal Atrial Fibrillation Currently in sinus tachycardia. Dx: Patient was discharged in March 2025 with Amiodarone 200mg BID via GT, has a hx of Paroxysmal A-fib on previous EKGs; currently not on any anticoagulation despite CHADVaSCore being 4 d/t hx of GI bleed Rx: Continue to monitor on tele monitor, EKG if needed, and consider adding Amiodarone if needed 07/05 holding amio as patient is not tolerating PO at the moment, is hypotensive on pressors, amio has a long half life, so no treatment indicated at the moment. Treatment Review: PULM No active issues GI/FEN #Melena #C/f rectal abscess vs perforation DDx: Rectal abscess/perforation vs colitis flare vs. PEG tube complications Dx: Patient presenting with LUQ abdominal pain with guarding on palpation; CT abdomen/pelvis, Serial hemoglobin, Stool guaiac positive, Dr. Moser is concerned that there may be a perforation on posterior wall following JANEL. Rx:Continue IV PPI drip, Hold tube feeds for now, Occult blood positive in the ED, NPO except meds via GT, GI consult. Manual disimpaction to evaluate rectal abscess vs perforation. Dr. Moser would like us to consider sigmoidoscopy. Treatment Review:Resume nutrition once hemodynamically stable and bleeding ruled out. per Dr. Moser gastrograffin study not necessary. #PEG tube dependence Dx: Takes home meds via G-tube Rx: Can restart home GT meds when patient is able to tolerate, Dr. Moser said ok to restart tube feeds, confirm with Dr. Montes. #Severe obstipation Hard impacted stool on JANEL. Abundant amounts of stool seen on CT Rx: Initially given Laxative but withheld after tele-rad noted possibility of rectal rupture. Free water enemas. General surgery consulted, requested to hold enemas due to concern of perforation may spread infection. Manual disimpaction done in ICU. RENAL #Acute kidney injury DDx: Pre-renal LU from dehydration vs Sepsis-associated LU vs ATN (if prolonged hypoperfusion) Dx: Daily BMP, Strict I's/O's Rx: IV fluids with careful sodium correction, Avoid nephrotoxins, Adjust medications for renal dosing Treatment Review: #Hypernatremia DDx:dehydration vs chronic SIADH Dx: Urine lytes, Strict I's/O's Rx: Trend Na Q4HR, consider D5 maintenance gentle fluids; 2L free water deficit will begin correcting once patient has been stabilized, continuing with LR. RRx Goal of 10-12 down every 24 hours, currently on D5W 80cc/hr, can split 40/40 through PEG tube and IV. HEME/ONC #Acute blood loss anemia DDx: Acute lower GI blood loss, perforation Dx: Serial CBC, Iron studies if stable, Transfusion threshold <7 g/dL or symptomatic Rx:Monitor hemoglobin and Hold anticoagulation given bleeding concern, Type and Screen ordered Treatment Review: Transfusion strategy based on hemodynamics and bleeding. RRx 2units pRBCs given #Thrombocytosis DDx: Reactive thrombocytosis (infection/inflammation) vs essential thrombocythemia Dx: elevated PLT, dehydration seen on PE Rx: treat underlying sepsis ENDO #Diabetes mellitus DDx: Stress hyperglycemia Dx: q6h glucose monitoring Rx: Sliding scale insulin, Avoid hypoglycemia, Target BG is 140-180 Treatment Review: ID #Sepsis DDx:2/2 to UTI and or Intra-abdominal infection vs bacteremia Dx: Blood cultures x2, Urine culture, CT chest/abdomen/pelvis Rx: Continue IV Zosyn, Escalate antibiotics if clinical deterioration, Trend lactate q4?6h Treatment Review: Antibiotics to be narrowed based on culture data MSK No active issues PSYCH No active issues Health Maintenance: DVT prophylaxis: SCDs in lieu of possible GI Bleed GI prophylaxis: Protonix gtt Diet: NPO, meds via G-tube Velazquez: Yes, doesn't use a chronic velazquez at SNF Lines: PIV Drips: None Vent: No CODE STATUS: DNR Disposition: Admitted to ICU for shock and hypernatremia. Patient's care and plan discussed with my attending, Dr. Trevino and supervising resident Dr. Cash. Note written by Rylan Murrieta PGY-1
[2025-07-06 10:47] LABS: Lactate (Lactic Acid) 2.0 mMol/L (0.4-2.0)
[2025-07-06 11:17] LABS: Albumin, Serum 2.8 gm/dL (3.4-4.8); Anion Gap 14 (7-16); BUN/Creatinine Ratio 31 Ratio (12-20); Blood Urea Nitrogen 44 mg/dL (9-23); Calcium 8.3 mg/dL (8.3-10.6); Calcium (Corrected) 9.3 mg/dL (8.5-10.1); Carbon Dioxide 18.6 mMol/L (20.0-31.0); Chloride 117 mMol/L (98-107); Creatinine (Component) 1.4 mg/dL (0.6-1.3); Estimated Creatinine Clearance 18.8 mL/min (>60); Glucose 94 mg/dL (74-106); Osmolality,Calculated 309 (275-295); Phosphorous 5.1 mg/dL (2.4-5.1); Potassium 4.6 mMol/L (3.4-5.1); Sodium 150 mMol/L (136-145); eGFR 37 See Note
[2025-07-06 12:53] LABS: Lactate (Lactic Acid) 1.0 mMol/L (0.4-2.0)
--- NOTE | 2025-07-06 13:34 | PC.DIETICIAN ---
Nutrition prescription If EN is within plan of care, consider: Osmolite 1.5 at 10 ml/hr via PEG tube by pump. Advance 10 ml every 8 hrs to goal rate of 40 ml/hr x 24 hrs. If no IV fluids, water flushes of 35 ml/hr (or per MD). Provides: 1440 kcal, 60 g prot, 731 ml free water, 960 ml total volume.
--- NOTE | 2025-07-06 14:56 | PC.SS ---
Update: Patient is DNR/DNI. Patient downgraded from ICU on 07-06-25.
--- NOTE | 2025-07-06 15:43 | ESPR_ITS ---
<Statement entered by Umesh Wilcox MD - 07/06/25 22:28> I saw and examined patient personally and supervised PGY 1 resident, Dr. Stein with formulating a management plan. I agree with the documentation with the exceptions as listed below. Patient initially presented with septic shock secondary to UTI and was treated in the ICU. Norepinephrine infusion for blood pressure support Zosyn for UTI. Norepinephrine infusion was stopped on 07/05 and the patient's now wishes to consider hospice. Will follow-up with his decision tomorrow. Plan of care discussed with Attending Dr. Gt Wilcox MD PGY 2 Disclaimer: This note was dictated by speech recognition. Minor errors in supervisor brine may be present due to voice recognition software. Documentation for date of: 07/06/25 Subjective Subjective Interval history: Patient downgraded from ICU to floors; no longer on pressors. Can start diet per feeding tube per Dr. Moser. Had BM; received 2 units pRBCs for Hgb 6.1. Waiting on repeat H&H. Per ICU, family is amenable to hospice, but no formal agreement exists. Will talk with family tomorrow. Exam Vital Signs Temp Pulse Resp BP Pulse Ox O2 Del Method 97.2 F 78 25 H 119/31 L 99 Room Air 07/06/25 14:50 07/06/25 14:50 07/06/25 14:50 07/06/25 14:50 07/06/25 14:50 07/05/25 04:13 Narrative Exam General: A/O x0, frail, responds to commands, PEG tube in place Eyes: PERRL, EOMI. Anicteric, vision grossly intact. Ears: No ear pain, no ear discharge, Hearing grossly intact. Nose: No nasal discharge. Mouth/Throat: Moist mucous membranes, no redness, no lesions. Neck: Neck supple, non-tender, no cervical lymphadenopathy. Lungs: Clear TAPAN to auscultation and percussion, No accessory muscle use. Cardio: Normal S1/S2, regular rhythm, no murmurs, no JVD or carotid bruits. Abdomen: Soft, non-tender, no palpable masses, peristalsis present, no guarding or rebound, peg tube has crusted blood Extremities: Symmetrical, no significant deformities, no peripheral edema , non-tender, peripheral pulses present. Skin: No rashes, no lesions, warm to touch. Neuro: No focal neurological deficits. Psych: Unable to assess due to clinical condition Objective Labs 07/07/25 05:49 07/07/25 05:49 Labs: Laboratory Results - last 24 hr 07/05/25 07/05/25 07/05/25 00:55 19:45 21:55 WBC RBC Hgb 7.5 L Hct 24.0 L MCV MCH MCHC RDW Std Deviation Plt Count Neut % (Auto) Lymph % (Auto) [place] % (Auto) Eos % (Auto) Baso % (Auto) Neut # (Auto) Lymph # (Auto) [place] # (Auto) Eos # (Auto) Baso # (Auto) Immature Gran # (Auto) Absolute Nucleated RBC Immature Gran % Nucleated RBC % PT INR APTT Sodium 154 H Potassium 4.4 Chloride 118 H Carbon Dioxide 22.1 Anion Gap 14 BUN 43 H Creatinine 1.4 H Estim Creat Clear Calc 18.3 L eGFR 37 L BUN/Creatinine Ratio 31 H Glucose 73 L Calculated Osmolality 315 H Lactic Acid Calcium 8.9 Corrected Calcium 9.8 Phosphorus 5.8 H Magnesium Total Bilirubin AST ALT Alkaline Phosphatase Total Protein Albumin 2.9 L Globulin Albumin/Globulin Ratio Blood Type A Positive Antibody Screen NEGATIVE Crossmatch See Detail Blood Bank Wristband ID Yes 07/06/25 07/06/25 07/06/25 04:43 10:36 12:30 WBC 8.5 D RBC 2.36 L Hgb 6.1 L* Hct 19.7 L* MCV 84 MCH 25.8 MCHC 31.0 RDW Std Deviation 51.9 H Plt Count 582 H D Neut % (Auto) 87 H Lymph % (Auto) 7 L [place] % (Auto) 4 Eos % (Auto) 0 Baso % (Auto) 1 Neut # (Auto) 7.4 Lymph # (Auto) 0.6 L [place] # (Auto) 0.3 Eos # (Auto) 0.0 Baso # (Auto) 0.1 Immature Gran # (Auto) 0.05 H Absolute Nucleated RBC 0.00 Immature Gran % 1 H Nucleated RBC % 0 PT 11.9 INR 1.1 APTT 24.1 Sodium 154 H 150 H Potassium 3.9 D 4.6 D Chloride 119 H 117 H Carbon Dioxide 21.2 18.6 L Anion Gap 14 14 BUN 42 H 44 H Creatinine 1.4 H 1.4 H Estim Creat Clear Calc 18.8 L 18.8 L eGFR 37 L 37 L BUN/Creatinine Ratio 30 H 31 H Glucose 89 94 Calculated Osmolality 314 H 309 H Lactic Acid 2.0 1.0 Calcium 8.6 8.3 Corrected Calcium 9.7 9.3 Phosphorus 5.3 H 5.1 Magnesium 2.3 Total Bilirubin 0.2 L AST 13 ALT 18 Alkaline Phosphatase 141 H D Total Protein 5.0 L Albumin 2.6 L 2.8 L Globulin 2.4 Albumin/Globulin Ratio 1.1 L Blood Type Antibody Screen Crossmatch Blood Bank Wristband ID ABG Interpretation ABG results: 07/05/25 07:58 VBG pH 7.31 L VBG pCO2 45 VBG pO2 39 VBG Base Excess -3 Quality Measures Quality Measures sepsis Current suspected stage: sepsis Possible source: genitourinary Blood cultures ordered: yes Antibiotic ordered: Yes Advance care planning discussed with:: other Assessment & Plan Assessment Current Active Medications: Generic Name Dose Route Start Last Admin Trade Name Freq PRN Reason Stop Dose Admin Piperacillin/Tazobactam/Dextrose 3.375 gm in 50 mls @ 12.5 mls/hr 07/05/25 14:00 07/06/25 13:02 Zosyn IV 07/12/25 13:59 12.5 mls/hr Q8HR LORNE Administration Protocol Dextrose 1,000 mls @ 100 mls/hr 07/06/25 09:42 07/06/25 10:09 D5w IV 08/05/25 09:40 Not Given .Q10H LORNE Midodrine 5 mg 07/05/25 04:24 Midodrine 5 Mg Tablet PO 08/04/25 05:59 Q6HR PRN SBP < 90 or MAP < 65 Plan Patient is 85 y.o female with PMHx of dementia, paroxysmal A-fib, HTN, DM, HLD, ulcerative colitis, prior colon cancer, s/p PEG tube presented on 07/05/25 for increased heart rate and AMS. Patient admitted to ICU for further management of hypovolemic vs septic shock in the setting of dehydration and UTI on 07/05/25. Downgraded to floors on 07/06/25. #Septic shock (resolved) secondary to #UTI and/or #Rectal abscess vs perforation #Acute blood loss anemia #Melena #Obstipation CTA shows potential perirectal abscess vs rectal incompetence. Required manual disimpaction in ICU. Hgb 6.1; 2 units pRBCs given. UA on admission turbid wiht 4+ bacteria and 349 WBCs. WBC 8.5 today from 14.3 previously. Plan: GI consulted, thank you for recs- restarting Osmolite 1.5 RTH Pending posttransfusion H&H Zosyn IV Midodrine 5 q6h prn Will talk with family about goals of care tomorrow #Hypernatremia Patient had Na of 154 at maximum, Na today was 150. Plan: Trend Na D5W at 100cc/hr #LU Baseline creatinine is 0.8; today is 1.4. Plan: IV fluids as above Avoid nephrotoxins renal dosing #Acute encephalopathy DDx: sepsis, hypernatremia, vs worsening dementia Plan: Treat sepsis, hypernatremia as above Monitor #Hx of Paroxysmal Atrial Fibrillation Previously on amiodarone 200, hx of A-fib on EKG Plan: Hold amiodarone due to soft BP (97/63 currently) #DM Plan: Insulin sliding scale Disposition: Med-Surg DVT prophylaxis: SCD GI prophylaxis: Diet: Osmolite 1.5 Lines: PIV, PEG CODE STATUS: DNR This case was discussed with my attending physician, Dr. Del Real, and senior resident, Dr. Wilcox. Kevin Stein, PGY1 Attending Provider Attestation/Addendum I have discussed and was present for the essential components of the history, physical examination, diagnosis, and treatment plan with the resident. I agree with the patient's care as documented by the resident and amended herein by me. Harrison Del Real DO. Although this document has been carefully reviewed, there may still be some phonetic and other typographical errors. These errors are purely grammatical due to imperfections in the software program and should not be construed in any way to compromise the substance of the patient's medical care during this visit. Will have goals of care meeting with the patient's today, unfortunately patient not eligible for hospice at the SNF due to authorization pending however this can be changed at a later date. Patient could always do home hospice however I do not feel the patient's would be able to accommodate that. Possible DC back to SNF in 1 to 2 days however we need to confer with the about the patient's baseline and make sure she is there prior to discharge. Will continue to monitor closely
[2025-07-06 16:32] LABS: Albumin, Serum 2.9 gm/dL (3.4-4.8); Anion Gap 13 (7-16); BUN/Creatinine Ratio 26 Ratio (12-20); Blood Urea Nitrogen 37 mg/dL (9-23); Calcium 8.6 mg/dL (8.3-10.6); Calcium (Corrected) 9.5 mg/dL (8.5-10.1); Carbon Dioxide 22.6 mMol/L (20.0-31.0); Chloride 114 mMol/L (98-107); Creatinine (Component) 1.4 mg/dL (0.6-1.3); Estimated Creatinine Clearance 18.8 mL/min (>60); Glucose 86 mg/dL (74-106); Osmolality,Calculated 305 (275-295); Phosphorous 4.5 mg/dL (2.4-5.1); Potassium 4.1 mMol/L (3.4-5.1); Sodium 150 mMol/L (136-145); eGFR 37 See Note
[2025-07-06] MEDS: DEXTROSE 5%-WATER 1,000 ML 100 ML IV (17:29)
[2025-07-06 20:05] LABS: Hematocrit 34.6 % (36.0-46.0); Hemoglobin 11.5 g/dL (12.0-16.0)
[2025-07-06 20:22] LABS: Albumin, Serum 3.1 gm/dL (3.4-4.8); Anion Gap 11 (7-16); BUN/Creatinine Ratio 24 Ratio (12-20); Blood Urea Nitrogen 34 mg/dL (9-23); Calcium 9.0 mg/dL (8.3-10.6); Calcium (Corrected) 9.7 mg/dL (8.5-10.1); Carbon Dioxide 22.8 mMol/L (20.0-31.0); Chloride 113 mMol/L (98-107); Creatinine (Component) 1.4 mg/dL (0.6-1.3); Estimated Creatinine Clearance 18.8 mL/min (>60); Glucose 98 mg/dL (74-106); Osmolality,Calculated 300 (275-295); Phosphorous 4.4 mg/dL (2.4-5.1); Potassium 4.1 mMol/L (3.4-5.1); Sodium 147 mMol/L (136-145); eGFR 37 See Note
--- NOTE | 2025-07-06 21:21 | PD.IMPROG ---
Documentation for date of: 07/06/25 Subjective Subjective Interval history: Moved out of the ICU No signs of any acute abdomen Exam Vital Signs Temp Pulse Resp BP Pulse Ox O2 Del Method 97.0 F 77 22 H 93/60 97 Room Air 07/06/25 20:00 07/06/25 20:00 07/06/25 20:00 07/06/25 20:00 07/06/25 20:00 07/06/25 20:00 Objective Labs 07/06/25 19:57 07/06/25 19:57 Labs: Laboratory Results - last 24 hr 07/05/25 07/05/25 07/06/25 00:55 21:55 04:43 WBC 8.5 D RBC 2.36 L Hgb 6.1 L* Hct 19.7 L* MCV 84 MCH 25.8 MCHC 31.0 RDW Std Deviation 51.9 H Plt Count 582 H D Neut % (Auto) 87 H Lymph % (Auto) 7 L [place] % (Auto) 4 Eos % (Auto) 0 Baso % (Auto) 1 Neut # (Auto) 7.4 Lymph # (Auto) 0.6 L [place] # (Auto) 0.3 Eos # (Auto) 0.0 Baso # (Auto) 0.1 Immature Gran # (Auto) 0.05 H Absolute Nucleated RBC 0.00 Immature Gran % 1 H Nucleated RBC % 0 PT 11.9 INR 1.1 APTT 24.1 Sodium 154 H 154 H Potassium 4.4 3.9 D Chloride 118 H 119 H Carbon Dioxide 22.1 21.2 Anion Gap 14 14 BUN 43 H 42 H Creatinine 1.4 H 1.4 H Estim Creat Clear Calc 18.3 L 18.8 L eGFR 37 L 37 L BUN/Creatinine Ratio 31 H 30 H Glucose 73 L 89 Calculated Osmolality 315 H 314 H Lactic Acid Calcium 8.9 8.6 Corrected Calcium 9.8 9.7 Phosphorus 5.8 H 5.3 H Magnesium 2.3 Total Bilirubin 0.2 L AST 13 ALT 18 Alkaline Phosphatase 141 H D Total Protein 5.0 L Albumin 2.9 L 2.6 L Globulin 2.4 Albumin/Globulin Ratio 1.1 L Blood Type A Positive Antibody Screen NEGATIVE Crossmatch See Detail Blood Bank Wristband ID Yes 07/06/25 07/06/25 07/06/25 10:36 12:30 16:02 WBC RBC Hgb Hct MCV MCH MCHC RDW Std Deviation Plt Count Neut % (Auto) Lymph % (Auto) [place] % (Auto) Eos % (Auto) Baso % (Auto) Neut # (Auto) Lymph # (Auto) [place] # (Auto) Eos # (Auto) Baso # (Auto) Immature Gran # (Auto) Absolute Nucleated RBC Immature Gran % Nucleated RBC % PT INR APTT Sodium 150 H 150 H Potassium 4.6 D 4.1 D Chloride 117 H 114 H Carbon Dioxide 18.6 L 22.6 Anion Gap 14 13 BUN 44 H 37 H Creatinine 1.4 H 1.4 H Estim Creat Clear Calc 18.8 L 18.8 L eGFR 37 L 37 L BUN/Creatinine Ratio 31 H 26 H Glucose 94 86 Calculated Osmolality 309 H 305 H Lactic Acid 2.0 1.0 Calcium 8.3 8.6 Corrected Calcium 9.3 9.5 Phosphorus 5.1 4.5 Magnesium Total Bilirubin AST ALT Alkaline Phosphatase Total Protein Albumin 2.8 L 2.9 L Globulin Albumin/Globulin Ratio Blood Type Antibody Screen Crossmatch Blood Bank Wristband ID 07/06/25 19:57 WBC RBC Hgb 11.5 L D Hct 34.6 L D MCV MCH MCHC RDW Std Deviation Plt Count Neut % (Auto) Lymph % (Auto) [place] % (Auto) Eos % (Auto) Baso % (Auto) Neut # (Auto) Lymph # (Auto) [place] # (Auto) Eos # (Auto) Baso # (Auto) Immature Gran # (Auto) Absolute Nucleated RBC Immature Gran % Nucleated RBC % PT INR APTT Sodium 147 H Potassium 4.1 Chloride 113 H Carbon Dioxide 22.8 Anion Gap 11 BUN 34 H Creatinine 1.4 H Estim Creat Clear Calc 18.8 L eGFR 37 L BUN/Creatinine Ratio 24 H Glucose 98 Calculated Osmolality 300 H Lactic Acid Calcium 9.0 Corrected Calcium 9.7 Phosphorus 4.4 Magnesium Total Bilirubin AST ALT Alkaline Phosphatase Total Protein Albumin 3.1 L Globulin Albumin/Globulin Ratio Blood Type Antibody Screen Crossmatch Blood Bank Wristband ID Impressions Impression: Abnormal CTAP showing perirectal findings No need for any invasive GI workup or any surgical intervention Advance diet as tolerated ABG Interpretation ABG results: 07/05/25 07:58 VBG pH 7.31 L VBG pCO2 45 VBG pO2 39 VBG Base Excess -3 Assessment & Plan A&P Narrative # Abnormal CTAP showing perirectal fluid possible perforation however abdominal findings are not of an acute abdomen and there is no free air seen on the CTA Patient did have ulceration on 03/30/2025 colonoscopy which I believe was due to most likely ischemia not ulcerative colitis At the moment I recommend conservative management with IV antibiotics lets see how the patient does over next 24 to 48 hours Before jumping into any kind of a surgical intervention I will also speak with my surgical colleague Thank you very much for the opportunity to participate in the care of this patient Time Spent With Patient Time: Total time spent is greater than 50% in coordination of care (as documented) at patient's floor/unit and/or counseling patient:
[2025-07-06 23:09] LABS: Albumin, Serum 3.0 gm/dL (3.4-4.8); Anion Gap 14 (7-16); BUN/Creatinine Ratio 20 Ratio (12-20); Blood Urea Nitrogen 28 mg/dL (9-23); Calcium 8.6 mg/dL (8.3-10.6); Calcium (Corrected) 9.4 mg/dL (8.5-10.1); Carbon Dioxide 20.4 mMol/L (20.0-31.0); Chloride 114 mMol/L (98-107); Creatinine (Component) 1.4 mg/dL (0.6-1.3); Estimated Creatinine Clearance 18.8 mL/min (>60); Glucose 84 mg/dL (74-106); Osmolality,Calculated 298 (275-295); Phosphorous 4.2 mg/dL (2.4-5.1); Potassium 3.7 mMol/L (3.4-5.1); Sodium 148 mMol/L (136-145); eGFR 37 See Note
[2025-07-07] VITALS: BP 105/58; PULSE 82; RESP 18; TEMP 36.8; O2SAT 99
[2025-07-07 04:00] VITALS: BP 117/61; PULSE 75; RESP 18; TEMP 36.7; O2SAT 99
[2025-07-07] MEDS: PIPER/TAZO 3.375 GM PREMIX 3.375 GM/50 ML BAG IV ×3 (05:10→21:50)
[2025-07-07 06:00] VITALS: BMI 17.2
[2025-07-07 06:16] LABS: Basophils # (Auto) 0.1 Thou/mm3 (0.0-0.2); Basophils % (Auto) 1 % (0-2.5); Eosinophils # (Auto) 0.3 Thou/mm3 (0.0-0.5); Eosinophils % (Auto) 3 % (0-10); Hematocrit 30.7 % (36.0-46.0); Hemoglobin 10.3 g/dL (12.0-16.0); Immature Granulocytes Auto 0.06 Thou/mm3 (0.00-0.00); Lymphocytes # (Auto) 0.7 Thou/mm3 (1.0-4.8); Lymphocytes % (Auto) 9 % (10-50); Mean Corpuscular HGB Conc 33.6 g/dl (31.0-37.0); Mean Corpuscular Hemoglobin 28.2 pg (25.0-35.0); Mean Corpuscular Volume 84 fL (80-100); Monocytes # (Auto) 0.4 Thou/mm3 (0.0-0.8); Monocytes % (Auto) 5 % (0-12); Neutrophils # (Auto) 6.6 Thou/mm3 (1.8-7.7); Neutrophils % (Auto) 82 % (37-80); Nucleated Red Blood Cell # 0.02 Thou/mm3 (0.00-0.00); Nucleated Red Blood Cell % 0 /100 WBC (0); Platelet Count 551 Thou/mm3 (140-440); RDW Standard Deviation 47.6 fL (36.4-46.3); Red Blood Count 3.65 Miln/mm3 (4.00-5.20); White Blood Count 8.1 Thou/mm3 (3.6-11.0)
[2025-07-07 06:22] LABS: INR 1.1 (0.9-1.3); Partial Thromboplastin Time 25.6 Seconds (22.0-36.0); Prothrombin Time 11.9 Seconds (9.0-12.2)
[2025-07-07 06:31] LABS: Alanine Aminotransferase 18 U/L (10-49); Albumin, Serum 2.8 gm/dL (3.4-4.8); Albumin/Globulin Ratio 1.0 (1.2-2.2); Alkaline Phosphatase 157 U/L (46-116); Anion Gap 14 (7-16); Aspartate Amino Transferase 18 U/L (0-34); BUN/Creatinine Ratio 22 Ratio (12-20); Bilirubin,Total 0.3 mg/dL (0.3-1.2); Blood Urea Nitrogen 31 mg/dL (9-23); Calcium 8.6 mg/dL (8.3-10.6); Calcium (Corrected) 9.6 mg/dL (8.5-10.1); Carbon Dioxide 21.4 mMol/L (20.0-31.0); Chloride 113 mMol/L (98-107); Creatinine (Component) 1.4 mg/dL (0.6-1.3); Estimated Creatinine Clearance 18.8 mL/min (>60); Globulin 2.7 gm/dL (2.3-3.5); Glucose 84 mg/dL (74-106); Magnesium 2.2 mg/dL (1.6-2.6); Osmolality,Calculated 299 (275-295); Phosphorous 3.9 mg/dL (2.4-5.1); Potassium 3.9 mMol/L (3.4-5.1); Sodium 148 mMol/L (136-145); Total Protein 5.5 gm/dL (5.7-8.2); eGFR 37 See Note
[2025-07-07 08:00] VITALS: BP 109/57; PULSE 97; RESP 17; TEMP 36.6; O2SAT 98
[2025-07-07] MEDS: DEXTROSE 5%-WATER 1,000 ML 100 ML IV ×2 (09:01→23:59)
--- NOTE | 2025-07-07 09:20 | PC.SS ---
Follow up note: Pt is from [place]. SS spoke to Shireen from [facility] who explained patient's Medical is still pending. Shireen is aware pt is possible d/c with Hospice. Per Shireen, she will follow up with Medical.
--- NOTE | 2025-07-07 09:41 | CHAP ---
Patient was sleeping. Prayed quietly by bed.
--- NOTE | 2025-07-07 10:06 | ESPR_ITS ---
<Statement entered by Umesh Wilcox MD - 07/07/25 16:47> I saw and examined patient personally and supervised PGY 1 resident, Dr. Stein with formulating a management plan. I agree with the documentation with the exceptions as listed below. Patient's prognosis remains guarded due to her multiple morbidities and likely rectal abscess versus perforation. Currently still on treatment with Zosyn. Had goals of care discussion with patient's today and updated him on patient's current condition and poor prognosis with high likelihood of deterioration and possible . Also had conversations with high school social studies teacher who said that due to insurance issues patient cannot be discharged to her SNF with hospice but can still be discharged to his SNF. Her is aware of this and is amenable to patient being discharged to SNF and starting the hospice process later on. Anticipate discharge to SNF tomorrow. Plan of care discussed with Attending Dr. Gt Wilcox MD PGY 2 Disclaimer: This note was dictated by speech recognition. Minor errors in jewel hole cornerer may be present due to voice recognition software. Documentation for date of: 07/07/25 Subjective Subjective Interval history: Patient seen and examined at bedside; no acute events overnight. Spoke with today; he agreed to hospice care, and understood that due to insurance issues, patient could not be sent directly back to SNF with hospice order. Thus, he jessica have to talk with them and the facility about hospice when patient arrived. Also, per , patient has Alzheimer's and is minimally responsive at baseline. Exam Vital Signs Temp Pulse Resp BP Pulse Ox O2 Del Method 97.8 F 97 17 109/57 L 98 Room Air 07/07/25 08:00 07/07/25 08:00 07/07/25 08:00 07/07/25 08:00 07/07/25 08:00 07/07/25 08:00 Narrative Exam General: A/O x0 (at baseline), frail, responds to commands, PEG tube in place, Eyes: PERRL, EOMI. Anicteric, vision grossly intact. Ears: No ear pain, no ear discharge, Hearing grossly intact. Nose: No nasal discharge. Mouth/Throat: Moist mucous membranes, no redness, no lesions. Neck: Neck supple, non-tender, no cervical lymphadenopathy. Lungs: Clear TAPAN to auscultation and percussion, No accessory muscle use. Cardio: Normal S1/S2, regular rhythm, no murmurs, no JVD or carotid bruits. Abdomen: Soft, non-tender, no palpable masses, peristalsis present, no guarding or rebound, peg tube has crusted blood Extremities: Symmetrical, no significant deformities, no peripheral edema , non-tender, peripheral pulses present. Skin: No rashes, no lesions, warm to touch. Neuro: No focal neurological deficits. Psych: Unable to assess due to clinical condition Objective Labs 07/08/25 08:30 07/08/25 08:30 Labs: Laboratory Results - last 24 hr 07/05/25 07/06/25 07/06/25 00:55 10:36 12:30 WBC RBC Hgb Hct MCV MCH MCHC RDW Std Deviation Plt Count Neut % (Auto) Lymph % (Auto) [place] % (Auto) Eos % (Auto) Baso % (Auto) Neut # (Auto) Lymph # (Auto) [place] # (Auto) Eos # (Auto) Baso # (Auto) Immature Gran # (Auto) Absolute Nucleated RBC Immature Gran % Nucleated RBC % PT INR APTT Sodium 150 H Potassium 4.6 D Chloride 117 H Carbon Dioxide 18.6 L Anion Gap 14 BUN 44 H Creatinine 1.4 H Estim Creat Clear Calc 18.8 L eGFR 37 L BUN/Creatinine Ratio 31 H Glucose 94 Calculated Osmolality 309 H Lactic Acid 2.0 1.0 Calcium 8.3 Corrected Calcium 9.3 Phosphorus 5.1 Magnesium Total Bilirubin AST ALT Alkaline Phosphatase Total Protein Albumin 2.8 L Globulin Albumin/Globulin Ratio Blood Type A Positive Antibody Screen NEGATIVE Crossmatch See Detail Blood Bank Wristband ID Yes 07/06/25 07/06/25 07/06/25 16:02 19:57 22:32 WBC RBC Hgb 11.5 L D Hct 34.6 L D MCV MCH MCHC RDW Std Deviation Plt Count Neut % (Auto) Lymph % (Auto) [place] % (Auto) Eos % (Auto) Baso % (Auto) Neut # (Auto) Lymph # (Auto) [place] # (Auto) Eos # (Auto) Baso # (Auto) Immature Gran # (Auto) Absolute Nucleated RBC Immature Gran % Nucleated RBC % PT INR APTT Sodium 150 H 147 H 148 H Potassium 4.1 D 4.1 3.7 Chloride 114 H 113 H 114 H Carbon Dioxide 22.6 22.8 20.4 Anion Gap 13 11 14 BUN 37 H 34 H 28 H Creatinine 1.4 H 1.4 H 1.4 H Estim Creat Clear Calc 18.8 L 18.8 L 18.8 L eGFR 37 L 37 L 37 L BUN/Creatinine Ratio 26 H 24 H 20 Glucose 86 98 84 Calculated Osmolality 305 H 300 H 298 H Lactic Acid Calcium 8.6 9.0 8.6 Corrected Calcium 9.5 9.7 9.4 Phosphorus 4.5 4.4 4.2 Magnesium Total Bilirubin AST ALT Alkaline Phosphatase Total Protein Albumin 2.9 L 3.1 L 3.0 L Globulin Albumin/Globulin Ratio Blood Type Antibody Screen Crossmatch Blood Bank Wristband ID 07/07/25 05:49 WBC 8.1 RBC 3.65 L Hgb 10.3 L Hct 30.7 L MCV 84 MCH 28.2 MCHC 33.6 RDW Std Deviation 47.6 H Plt Count 551 H D Neut % (Auto) 82 H Lymph % (Auto) [address] [place] % (Auto) 5 Eos % (Auto) 3 Baso % (Auto) 1 Neut # (Auto) 6.6 Lymph # (Auto) 0.[address] [place] # (Auto) 0.4 Eos # (Auto) 0.3 Baso # (Auto) 0.1 Immature Gran # (Auto) 0.06 H Absolute Nucleated RBC 0.02 H Immature Gran % 1 H Nucleated RBC % 0 PT 11.9 INR 1.1 APTT 25.6 Sodium 148 H Potassium 3.9 Chloride 113 H Carbon Dioxide 21.4 Anion Gap 14 BUN 31 H Creatinine 1.4 H Estim Creat Clear Calc 18.8 L eGFR 37 L BUN/Creatinine Ratio 22 H Glucose 84 Calculated Osmolality 299 H Lactic Acid Calcium 8.6 Corrected Calcium 9.6 Phosphorus 3.9 Magnesium 2.2 Total Bilirubin 0.3 AST 18 ALT 18 Alkaline Phosphatase 157 H Total Protein 5.5 L Albumin 2.8 L Globulin 2.7 Albumin/Globulin Ratio 1.0 L Blood Type Antibody Screen Crossmatch Blood Bank Wristband ID ABG Interpretation ABG results: 07/05/25 07:58 VBG pH 7.31 L VBG pCO2 45 VBG pO2 39 VBG Base Excess -3 Quality Measures Quality Measures sepsis Current suspected stage: sepsis Possible source: genitourinary Blood cultures ordered: yes Antibiotic ordered: Yes Advance care planning discussed with:: spouse Assessment & Plan Assessment Current Active Medications: Generic Name Dose Route Start Last Admin Trade Name Freq PRN Reason Stop Dose Admin Piperacillin/Tazobactam/Dextrose 3.375 gm in 50 mls @ 12.5 mls/hr 07/05/25 14:00 07/07/25 05:10 Zosyn IV 07/12/25 13:59 12.5 mls/hr Q8HR LORNE Administration Protocol Dextrose 1,000 mls @ 100 mls/hr 07/06/25 09:42 07/07/25 09:01 D5w IV 08/05/25 09:40 100 mls/hr .Q10H LORNE Administration Midodrine 5 mg 07/05/25 04:24 Midodrine 5 Mg Tablet PO 08/04/25 05:59 Q6HR PRN SBP < 90 or MAP < 65 Plan Patient is 85 y.o female with PMHx of dementia, paroxysmal A-fib, HTN, DM, HLD, ulcerative colitis, prior colon cancer, s/p PEG tube presented on 07/05/25 for increased heart rate and AMS. Patient admitted to ICU for further management of hypovolemic vs septic shock in the setting of dehydration and UTI on 07/05/25. Downgraded to floors on 07/06/25. #Goals of care Spoke with patient's at 3:30PM on 07/07/25, he agrees that hospice is the best course of action moving forward. He is also aware that due to insurance, patient cannot be discharged directly back to SNF with hospice order, and that he must talk with them about placing patient on hospice while at SNF. #Septic shock (resolved) secondary to #UTI and/or #Rectal abscess vs perforation #Acute blood loss anemia #Melena #Obstipation CTA shows potential perirectal abscess vs rectal incompetence. Required manual disimpaction in ICU. Hgb 6.1; 2 units pRBCs given. UA on admission turbid with 4+ bacteria and 349 WBCs. WBC 8.1 Hgb 10.3 today Plan: GI consulted, thank you for recs- restarting Osmolite 1.5 RTH Zosyn IV Midodrine 5 q6h prn #Hypernatremia Patient had Na of 154 at maximum, Na today was 148. Plan: Trend Na D5W at 100cc/hr #LU Baseline creatinine is 0.8; today is 1.4. Plan: IV fluids as above Avoid nephrotoxins renal dosing #Acute encephalopathy #Hx of Alzheimer's disease DDx: sepsis, hypernatremia, vs worsening dementia Per patient has Alzheimer's at baseline, and is minimally responsive. Plan: Treat sepsis, hypernatremia as above Monitor #Hx of Paroxysmal Atrial Fibrillation Previously on amiodarone 200, hx of A-fib on EKG Plan: Hold amiodarone due to soft BP (106/55 currently) #DM Plan: Insulin sliding scale Disposition: Med-Surg DVT prophylaxis: SCD GI prophylaxis: Diet: Osmolite 1.5 Lines: PIV, PEG CODE STATUS: DNR This case was discussed with my attending physician, Dr. Del Real, and senior resident, Dr. Wilcox. Kevin Stein, PGY1 Attending Provider Attestation/Addendum I have discussed and was present for the essential components of the history, physical examination, diagnosis, and treatment plan with the resident. I agree with the patient's care as documented by the resident and amended herein by me. Harrison Del Real DO. Although this document has been carefully reviewed, there may still be some phonetic and other typographical errors. These errors are purely grammatical due to imperfections in the software program and should not be construed in any way to compromise the substance of the patient's medical care during this visit.
[2025-07-07 12:00] VITALS: BP 106/55; PULSE 94; RESP 16; TEMP 36.5; O2SAT 95
--- NOTE | 2025-07-07 12:01 | PC.SS ---
SS has contacted patient's to arranged meeting by phone for 3:30 with physician residents.
[2025-07-07 16:00] VITALS: BP 110/60; PULSE 92; RESP 15; TEMP 36.7; O2SAT 95
[2025-07-07 20:00] VITALS: BP 148/70; PULSE 87; RESP 20; TEMP 36.8; O2SAT 95
--- NOTE | 2025-07-07 20:41 | ESPR_ITS ---
Documentation for date of: 07/07/25 Subjective Subjective Interval history: Hemoglobin hematocrit 10.3 and 30.7 Exam Vital Signs Temp Pulse Resp BP Pulse Ox O2 Del Method 98.1 F 92 15 110/60 95 Room Air 07/07/25 16:00 07/07/25 16:00 07/07/25 16:00 07/07/25 16:00 07/07/25 16:00 07/07/25 16:00 Objective Labs 07/07/25 05:49 07/07/25 05:49 Labs: Laboratory Results - last 24 hr 07/06/25 07/07/25 22:32 05:49 WBC 8.1 RBC 3.65 L Hgb 10.3 L Hct 30.7 L MCV 84 MCH 28.2 MCHC 33.6 RDW Std Deviation 47.6 H Plt Count 551 H D Neut % (Auto) 82 H Lymph % (Auto) 9 L [place] % (Auto) 5 Eos % (Auto) 3 Baso % (Auto) 1 Neut # (Auto) 6.6 Lymph # (Auto) 0.7 L [place] # (Auto) 0.4 Eos # (Auto) 0.3 Baso # (Auto) 0.1 Immature Gran # (Auto) 0.06 H Absolute Nucleated RBC 0.02 H Immature Gran % 1 H Nucleated RBC % 0 PT 11.9 INR 1.1 APTT 25.6 Sodium 148 H 148 H Potassium 3.7 3.9 Chloride 114 H 113 H Carbon Dioxide 20.4 21.4 Anion Gap 14 14 BUN 28 H 31 H Creatinine 1.4 H 1.4 H Estim Creat Clear Calc 18.8 L 18.8 L eGFR 37 L 37 L BUN/Creatinine Ratio 20 22 H Glucose 84 84 Calculated Osmolality 298 H 299 H Calcium 8.6 8.6 Corrected Calcium 9.4 9.6 Phosphorus 4.2 3.9 Magnesium 2.2 Total Bilirubin 0.3 AST 18 ALT 18 Alkaline Phosphatase 157 H Total Protein 5.5 L Albumin 3.0 L 2.8 L Globulin 2.7 Albumin/Globulin Ratio 1.0 L Impressions Impression: Abnormal CT scan of the abdomen and pelvis showing perirectal inflammation with some fluid collection No need for any colonoscopy or surgical intervention continue current management ABG Interpretation ABG results: 07/05/25 07:58 VBG pH 7.31 L VBG pCO2 45 VBG pO2 39 VBG Base Excess -3 Assessment & Plan A&P Narrative # Abnormal CTAP showing perirectal fluid possible perforation however abdominal findings are not of an acute abdomen and there is no free air seen on the CTA Patient did have ulceration on 03/30/2025 colonoscopy which I believe was due to most likely ischemia not ulcerative colitis At the moment I recommend conservative management with IV antibiotics lets see how the patient does over next 24 to 48 hours Before jumping into any kind of a surgical intervention I will also speak with my surgical colleague Thank you very much for the opportunity to participate in the care of this patient Time Spent With Patient Time: Total time spent is greater than 50% in coordination of care (as documented) at patient's floor/unit and/or counseling patient:
[2025-07-08] VITALS: BP 100/45; PULSE 75; RESP 22; TEMP 36.2; O2SAT 95
[2025-07-08 04:00] VITALS: BP 118/67; PULSE 79; RESP 18; TEMP 36.6; O2SAT 93
[2025-07-08] MEDS: PIPER/TAZO 3.375 GM PREMIX 3.375 GM/50 ML BAG IV ×3 (05:34→21:10)
[2025-07-08 08:20] VITALS: BP 94/56; PULSE 93; RESP 18; TEMP 36.6; O2SAT 94
[2025-07-08 08:51] LABS: Basophils # (Auto) 0.1 Thou/mm3 (0.0-0.2); Basophils % (Auto) 1 % (0-2.5); Eosinophils # (Auto) 0.2 Thou/mm3 (0.0-0.5); Eosinophils % (Auto) 3 % (0-10); Hematocrit 31.9 % (36.0-46.0); Hemoglobin 10.3 g/dL (12.0-16.0); Immature Granulocytes Auto 0.05 Thou/mm3 (0.00-0.00); Lymphocytes # (Auto) 0.7 Thou/mm3 (1.0-4.8); Lymphocytes % (Auto) 8 % (10-50); Mean Corpuscular HGB Conc 32.3 g/dl (31.0-37.0); Mean Corpuscular Hemoglobin 27.5 pg (25.0-35.0); Mean Corpuscular Volume 85 fL (80-100); Monocytes # (Auto) 0.4 Thou/mm3 (0.0-0.8); Monocytes % (Auto) 5 % (0-12); Neutrophils # (Auto) 7.2 Thou/mm3 (1.8-7.7); Neutrophils % (Auto) 84 % (37-80); Nucleated Red Blood Cell # 0.00 Thou/mm3 (0.00-0.00); Nucleated Red Blood Cell % 0 /100 WBC (0); Platelet Count 547 Thou/mm3 (140-440); RDW Standard Deviation 51.1 fL (36.4-46.3); Red Blood Count 3.74 Miln/mm3 (4.00-5.20); White Blood Count 8.6 Thou/mm3 (3.6-11.0)
[2025-07-08 09:22] LABS: Alanine Aminotransferase 16 U/L (10-49); Albumin, Serum 2.7 gm/dL (3.4-4.8); Albumin/Globulin Ratio 0.9 (1.2-2.2); Alkaline Phosphatase 157 U/L (46-116); Anion Gap 10 (7-16); Aspartate Amino Transferase 14 U/L (0-34); BUN/Creatinine Ratio 20 Ratio (12-20); Bilirubin,Total 0.2 mg/dL (0.3-1.2); Blood Urea Nitrogen 26 mg/dL (9-23); Calcium 8.4 mg/dL (8.3-10.6); Calcium (Corrected) 9.4 mg/dL (8.5-10.1); Carbon Dioxide 23.5 mMol/L (20.0-31.0); Chloride 114 mMol/L (98-107); Creatinine (Component) 1.3 mg/dL (0.6-1.3); Estimated Creatinine Clearance 22.0 mL/min (>60); Globulin 2.9 gm/dL (2.3-3.5); Glucose 108 mg/dL (74-106); Magnesium 2.4 mg/dL (1.6-2.6); Osmolality,Calculated 298 (275-295); Phosphorous 3.3 mg/dL (2.4-5.1); Potassium 4.1 mMol/L (3.4-5.1); Sodium 147 mMol/L (136-145); Total Protein 5.6 gm/dL (5.7-8.2); eGFR 41 See Note
[2025-07-08 12:17] VITALS: BP 96/58; PULSE 87; RESP 17; TEMP 36.4; O2SAT 97
--- NOTE | 2025-07-08 12:44 | ESDS_ITS ---
<Statement entered by Umesh Wilcox MD - 07/08/25 15:05> I saw and examined patient personally and supervised PGY 1 resident, Dr. Stein with formulating a discharge plan. I agree with the documentation as listed below. Plan of care discussed with Attending Dr. Carmen Wilcox MD PGY 2 Disclaimer: This note was dictated by speech recognition. Minor errors in well service derrick worker may be present due to voice recognition software. Planned Discharge Date 07/08/25 DS: Providers Provider Date of admission: 07/05/25 04:16 Primary care physician: Liam Mistry MD Admitting Provider: Arthur Emmanuel MD Attending Provider on Admission: Miles Del Real DO Consults: 07/05/25 04:22 Consult to Gastroenterology Stat Comment: Consulting Provider: Sarah Montes 07/05/25 06:12 Consult to General Surgery Routine Comment: Consulting Provider: Prashanth Lezama 07/05/25 09:33 Referral Wound Care Urgent Comment: 07/05/25 16:54 Referral Nutritional Services Routine Comment: 07/06/25 12:26 Referral Registered Dietitian Routine Comment: Attending Provider on DC: Osito Morales MD Discharging Provider: Osito Morales MD DS: Diagnosis Problem List Completed Was Problem List Reviewed/Reconciled?: Yes Hospital Course Hospital Course Hospital course: Hospital Course: Patient is a 85 y.o F with PMHx of dementia, paroxysmal A-fib, HTN, DM, HLD, ulcerative colitis, prior colon cancer, s/p PEG tube presented on 07/05 for increased heart rate and AMS. Patient admitted to ICU for management of hypovolemic vs septic shock and UTI management. On 07/05, surgery said she may have rectal perforation vs abscess. ICU team also spoke to patient's , who said he wanted hospice. On 07/06, both surgery and GI said that tube feeds could be resumed, and patient was downgraded to floors. On 07/07, patient's (who is medical decision maker) confirmed to floor team that he wanted h ospice; he was informed that due to insurance, patient would have to first return to SNF, and from there she could be placed on hospice. On 07/08, patient was considered stable for hospice. Discharge Instructions: - Take antibiotics as listed below for 4 more days to complete a total of 7 days ? You will be discharged to your SNF and can start the process of hospice once you get there. - Follow up with your primary care physician within 1 week of discharge. If you do not have a primary care physician, please follow up with the [facility] Residents clinic ([phone]) ? If you experience any new, worsening or persistent symptoms either call your primary doctor/hospice doctor. Problem List: #Goals of care #Septic shock (resolved) secondary to #UTI and/or #Rectal abscess vs perforation #Acute blood loss anemia #Melena #Obstipation #Hypernatremia #LU #Acute encephalopathy #Hx of Alzheimer's disease #Hx of Paroxysmal Atrial Fibrillation #DM Status at Discharge Functional status at discharge: bed bound Overall status at discharge: patient is back to baseline Time Spent with Patient Time attestation: Total time spent providing and/or coordinating discharge services: 37 minutes Time spent: Greater than 30 minutes Quality: Stroke Pt Provided Written Stroke Discharge Instructions: No Exam Vital Signs Temp Pulse Resp BP Pulse Ox O2 Del Method 97.8 F 93 18 94/56 L 94 L Room Air 07/08/25 08:20 07/08/25 08:20 07/08/25 08:20 07/08/25 08:20 07/08/25 08:20 07/08/25 08:20 Narrative Exam General: A/O x0 (at baseline), frail, responds to commands, PEG tube in place Eyes: PERRL, EOMI. Anicteric, vision grossly intact. Ears: No ear pain, no ear discharge, Hearing grossly intact. Nose: No nasal discharge. Mouth/Throat: Moist mucous membranes, no redness, no lesions. Neck: Neck supple, non-tender, no cervical lymphadenopathy. Lungs: Clear TAPAN to auscultation and percussion, No accessory muscle use. Cardio: Normal S1/S2, regular rhythm, no murmurs, no JVD or carotid bruits. Abdomen: Soft, non-tender, no palpable masses, peristalsis present, no guarding or rebound Extremities: Symmetrical, no significant deformities, no peripheral edema , non-tender, peripheral pulses present. Skin: No rashes, no lesions, warm to touch. Neuro: No focal neurological deficits. Psych: Unable to assess due to clinical condition Discharge Plan Plan Patient Disposition: Xfer Skilled Nsg Fac (SNF) Patient condition on transfer: Stable and Benefits outweigh risks Care Plan Goals: - Take antibiotics as listed below for 4 more days to complete a total of 7 days ? You will be discharged to your SNF and can start the process of hospice once you get there. - Follow up with your primary care physician within 1 week of discharge. If you do not have a primary care physician, please follow up with the [facility] Residents clinic ([phone]) ? If you experience any new, worsening or persistent symptoms either call your primary doctor/hospice doctor. Prescriptions/Referrals Prescriptions/Med Rec: New ciprofloxacin [Cipro] 500 mg/5 mL suspension,microcapsule recon 500 mg PO BID 4 Days Qty: 40 0RF Rx Instructions: To complete a total of 7 days. Give via GT Continued multivitamin Tablet 1 tab feeding tube QDAY Qty: 30 0RF pantoprazole [address] for susp in packet 40 mg feeding tube QDAY ferrous sulfate 220 mg (44 mg iron)/5 mL elixir 22 mg feeding tube QDAY megestrol 400 mg/10 mL (10 mL) suspension 400 mg feeding tube QDAY ascorbic acid (vitamin C) [Acerola C] 500 mg tablet,chewable 500 mg feeding tube QDAY midodrine 5 mg tablet 5 mg feeding tube [id number] Patient Comments: TAKE 1 TABLET BY MOUTH THREE TIMES A DAY NEEDED FOR SBP <95 FOR 30 DAYS Rx Instructions: hold B/P <95 loperamide 2 mg Capsule 2 mg PO BID 30 Days Qty: 60 2RF dicyclomine 10 mg Capsule 10 mg PO TID 30 Days Qty: 90 2RF cholestyramine (with sugar) 4 gram Powder In Packet 20 g PO QDAY 30 Days Qty: 60 2RF acetaminophen 325 mg tablet 325 mg PO Q4H PRN (Reason: fever or pain) Referrals: Liam Mistry MD [Primary Care Provider, Family Practice] Patient/Caregiver Discharge Instructions Education Materials: What Is Hospice?, Hospice The Importance of ..., Hospice Dyspnea Care, Hospice: As Nears, For Caregivers: Coping Tips Print Language: Indonesian Stand Alone Forms: Shara Award Info., Patient Portal Info Letter Discharge Order Discharge Orders: Discharge (Routine); Ordered 07/08/25 Ordered By: Umesh Wilcox Quality Discharge Quality Measures none MD Attestestation MD Attestation I have seen and examined the patient. I was physically present for the abbott portions of the services provided including history, physical exam, diagnosis, treatment plans and orders. I agree with assessment and plan of care as documented by residents. Even though this this note was carefully revised there may still be minor errors in well service derrick worker due to voice recognition software. Osito Morales MD
--- NOTE | 2025-07-08 15:39 | PC.SS ---
SS was informed by bedside nurseAngeles pt is on restraints. SS has spoken to Shireen from [facility] who states pt has to be off restraints for 24 hours before discharging to their facility. SS has informed physician residents. SS communicated with bedside nurseAngeles and restraints were removed around 1pm.
[2025-07-08 16:00] VITALS: BP 108/56; PULSE 85; RESP 18; TEMP 36.3; O2SAT 94
--- NOTE | 2025-07-08 19:03 | PD.IMPROG ---
Documentation for date of: 07/08/25 Subjective Subjective Interval history: Late entry for the note Hemoglobin hematocrit stable with a WBC count 8.6 Exam Vital Signs Temp Pulse Resp BP Pulse Ox O2 Del Method 97.3 F 85 18 108/56 L 94 L Room Air 07/08/25 16:00 07/08/25 16:00 07/08/25 16:00 07/08/25 16:00 07/08/25 16:00 07/08/25 16:00 Objective Labs 07/08/25 08:30 07/08/25 08:30 Labs: Laboratory Results - last 24 hr 07/08/25 08:30 WBC 8.6 RBC 3.74 L Hgb 10.3 L Hct 31.9 L MCV 85 MCH 27.5 MCHC 32.3 RDW Std Deviation 51.1 H Plt Count 547 H Neut % (Auto) 84 H Lymph % (Auto) 8 L [place] % (Auto) 5 Eos % (Auto) 3 Baso % (Auto) 1 Neut # (Auto) 7.2 Lymph # (Auto) 0.7 L [place] # (Auto) 0.4 Eos # (Auto) 0.2 Baso # (Auto) 0.1 Immature Gran # (Auto) 0.05 H Absolute Nucleated RBC 0.00 Immature Gran % 1 H Nucleated RBC % 0 Sodium 147 H Potassium 4.1 Chloride 114 H Carbon Dioxide 23.5 Anion Gap 10 BUN 26 H Creatinine 1.3 Estim Creat Clear Calc 22.0 L eGFR 41 L BUN/Creatinine Ratio 20 Glucose 108 H Calculated Osmolality 298 H Calcium 8.4 Corrected Calcium 9.4 Phosphorus 3.3 Magnesium 2.4 Total Bilirubin 0.2 L AST 14 ALT 16 Alkaline Phosphatase 157 H Total Protein 5.6 L Albumin 2.7 L Globulin 2.9 Albumin/Globulin Ratio 0.9 L Impressions Impression: Perirectal inflammation with rectal wall thickening Okay to discharge No need for GI follow-up ABG Interpretation ABG results: 07/05/25 07:58 VBG pH 7.31 L VBG pCO2 45 VBG pO2 39 VBG Base Excess -3 Assessment & Plan A&P Narrative # Abnormal CTAP showing perirectal fluid possible perforation however abdominal findings are not of an acute abdomen and there is no free air seen on the CTA Patient did have ulceration on 03/30/2025 colonoscopy which I believe was due to most likely ischemia not ulcerative colitis At the moment I recommend conservative management with IV antibiotics lets see how the patient does over next 24 to 48 hours Before jumping into any kind of a surgical intervention I will also speak with my surgical colleague Thank you very much for the opportunity to participate in the care of this patient Time Spent With Patient Time: Total time spent is greater than 50% in coordination of care (as documented) at patient's floor/unit and/or counseling patient:
[2025-07-08 20:00] VITALS: BP 121/56; PULSE 95; RESP 20; TEMP 36.6; O2SAT 95
[2025-07-08] MEDS: DEXTROSE 5%-WATER 1,000 ML 100 ML IV (20:41)
[2025-07-09] VITALS: BP 99/56; PULSE 99; RESP 22; TEMP 36.7; O2SAT 95
[2025-07-09 04:00] VITALS: BP 98/56; PULSE 101; RESP 22; TEMP 36.6; O2SAT 95
[2025-07-09] MEDS: PIPER/TAZO 3.375 GM PREMIX 3.375 GM/50 ML BAG IV (05:26)
[2025-07-09] MEDS: DEXTROSE 5%-WATER 1,000 ML 100 ML IV (06:05)
[2025-07-09 07:45] LABS: Osmolality, Urine* 410 mOsm/kg (50-1200)
[2025-07-09 07:58] VITALS: BP 106/58; PULSE 77; RESP 18; TEMP 36.3; O2SAT 97
--- NOTE | 2025-07-09 08:48 | PC.SS ---
Patient will be discharging today after 1PM. SS contacted patient's nurse, Echo and she reported to SS that patient has been off her restraints. SS contacted [facility] services and [facility] informed they would contact with ETA.
[2025-07-09 12:00] VITALS: BP 102/53; PULSE 80; RESP 19; TEMP 36.3; O2SAT 97
--- NOTE | 2025-07-09 14:50 | ESDS_ITS ---
<Statement entered by Umesh Wilcox MD - 07/09/25 23:14> I saw and examined patient personally and supervised PGY 1 resident, Dr. Stein with formulating a discharge plan. I agree with the documentation as listed below. Plan of care discussed with Attending Dr. Carmen Wilcox MD PGY 2 Disclaimer: This note was dictated by speech recognition. Minor errors in city treasurer may be present due to voice recognition software. Planned Discharge Date 07/09/25 DS: Providers Provider Date of admission: 07/05/25 04:16 Primary care physician: Liam Mistry MD Admitting Provider: Arthur Emmanuel MD Attending Provider on Admission: Osito Morales MD Consults: 07/05/25 04:22 Consult to Gastroenterology Stat Comment: Consulting Provider: Sarah Montes 07/05/25 06:12 Consult to General Surgery Routine Comment: Consulting Provider: Prashanth Lezama 07/05/25 09:33 Referral Wound Care Urgent Comment: 07/05/25 16:54 Referral Nutritional Services Routine Comment: 07/06/25 12:26 Referral Registered Dietitian Routine Comment: Attending Provider on DC: Osito Morales MD Discharging Provider: Osito Morales MD DS: Diagnosis Problem List Completed Was Problem List Reviewed/Reconciled?: Yes Hospital Course Hospital Course Hospital course: Hospital Course: Patient is a 85 y.o F with PMHx of dementia, paroxysmal A-fib, HTN, DM, HLD, ulcerative colitis, prior colon cancer, s/p PEG tube presented on 07/05 for increased heart rate and AMS. Patient admitted to ICU for management of hypovolemic vs septic shock and UTI management. On 07/05, surgery said she may have rectal perforation vs abscess. ICU team also spoke to patient's , who said he wanted hospice. On 07/06, both surgery and GI said that tube feeds could be resumed, and patient was downgraded to floors. On 07/07, patient's (who is medical decision maker) confirmed to floor team that he wanted hospice; he was informed that due to insurance, patient would have to first return to SNF, and from there she could be placed on hospice. On 07/08, patient was considered stable for SNF except for restraints. By 07/09, patient was considered stable for SNF. Discharge Instructions: - Take antibiotics as listed below for 4 more days to complete a total of 7 days ? You will be discharged to your SNF and can start the process of hospice once you get there. - Follow up with your primary care physician within 1 week of discharge. If you do not have a primary care physician, please follow up with the [facility] Residents clinic ([phone]) ? If you experience any new, worsening or persistent symptoms either call your primary doctor/hospice doctor. Problem List: #Goals of care #Septic shock (resolved) secondary to #UTI and/or #Rectal abscess vs perforation #Acute blood loss anemia #Melena #Obstipation #Hypernatremia #LU #Acute encephalopathy #Hx of Alzheimer's disease #Hx of Paroxysmal Atrial Fibrillation #DM Status at Discharge Functional status at discharge: bed bound Overall status at discharge: patient is back to baseline Time Spent with Patient Time attestation: Total time spent providing and/or coordinating discharge services: 33 minutes Time spent: Greater than 30 minutes Quality: Stroke Pt Provided Written Stroke Discharge Instructions: No Exam Vital Signs Temp Pulse Resp BP Pulse Ox O2 Del Method 97.3 F 80 19 102/53 L 97 Room Air 07/09/25 12:00 07/09/25 12:07/09/25 12:07/09/25 12:07/09/25 12:07/09/25 12:00 Narrative Exam General: A/O x0 (at baseline), frail, responds to commands, PEG tube in place Eyes: PERRL, EOMI. Anicteric, vision grossly intact. Ears: No ear pain, no ear discharge, Hearing grossly intact. Nose: No nasal discharge. Mouth/Throat: Moist mucous membranes, no redness, no lesions. Neck: Neck supple, non-tender, no cervical lymphadenopathy. Lungs: Clear TAPAN to auscultation and percussion, No accessory muscle use. Cardio: Normal S1/S2, regular rhythm, no murmurs, no JVD or carotid bruits. Abdomen: Soft, non-tender, no palpable masses, peristalsis present, no guarding or rebound Extremities: Symmetrical, no significant deformities, no peripheral edema , non-tender, peripheral pulses present. Skin: No rashes, no lesions, warm to touch. Neuro: No focal neurological deficits. Psych: Unable to assess due to clinical condition Discharge Plan Plan Patient Disposition: Xfer Skilled Nsg Fac (SNF) Patient condition on transfer: Stable and Benefits outweigh risks Care Plan Goals: - Take antibiotics as listed below for 4 more days to complete a total of 7 days ? You will be discharged to your SNF and can start the process of hospice once you get there. - Follow up with your primary care physician within 1 week of discharge. If you do not have a primary care physician, please follow up with the [facility] Residents clinic ([phone]) ? If you experience any new, worsening or persistent symptoms either call your primary doctor/hospice doctor. Prescriptions/Referrals Prescriptions/Med Rec: New ciprofloxacin [Cipro] 500 mg/5 mL suspension,microcapsule recon 500 mg PO BID 4 Days Qty: 40 0RF Rx Instructions: To complete a total of 7 days. Give via GT Continued multivitamin Tablet 1 tab feeding tube QDAY Qty: 30 0RF pantoprazole [address] for susp in packet 40 mg feeding tube QDAY ferrous sulfate 220 mg (44 mg iron)/5 mL elixir 22 mg feeding tube QDAY megestrol 400 mg/10 mL (10 mL) suspension 400 mg feeding tube QDAY ascorbic acid (vitamin C) [Acerola C] 500 mg tablet,chewable 500 mg feeding tube QDAY midodrine 5 mg tablet 5 mg feeding tube [id number] Patient Comments: TAKE 1 TABLET BY MOUTH THREE TIMES A DAY NEEDED FOR SBP <95 FOR 30 DAYS Rx Instructions: hold B/P <95 loperamide 2 mg Capsule 2 mg PO BID 30 Days Qty: 60 2RF dicyclomine 10 mg Capsule 10 mg PO TID 30 Days Qty: 90 2RF cholestyramine (with sugar) 4 gram Powder In Packet 20 g PO QDAY 30 Days Qty: 60 2RF acetaminophen 325 mg tablet 325 mg PO Q4H PRN (Reason: fever or pain) Referrals: Liam Mistry MD [Primary Care Provider, Family Practice] Patient/Caregiver Discharge Instructions Education Materials: What Is Hospice?, Hospice The Importance of ..., Hospice Dyspnea Care, Hospice: As Nears, For Caregivers: Coping Tips Print Language: Kiswahili Stand Alone Forms: Shara Award Info., Patient Portal Info Letter Discharge Order Discharge Orders: Discharge (Routine); Ordered 07/09/25 Ordered By: Umesh Wilcox Quality Discharge Quality Measures none MD Attestestation MD Attestation I have seen and examined the patient. I was physically present for the abbott portions of the services provided including history, physical exam, diagnosis, treatment plans and orders. I agree with assessment and plan of care as documented by residents. Even though this this note was carefully revised there may still be minor errors in city treasurer due to voice recognition software. Osito Morales MD
== END 2025-07-09 14:50 | disposition skilled nursing facility (03) | DRG 871 ==
LOC: SERX 04:25 → SERHOLD 04:28 → S2SX 06:18 → S3NX 07-06 16:19
PROVIDERS: Student in an Organized Health Care Education/Training Program; Admitting Provider Student in an Organized Health Care Education/Training Program; Emergency Provider Emergency Medicine; PCP Family Medicine; Visit Provider Student in an Organized Health Care Education/Training Program
DX: A41.51 Sepsis due to Escherichia coli [E. coli] (principal); G93.41 Metabolic encephalopathy; R65.21 Severe sepsis with septic shock; K51.911 Ulcerative colitis, unspecified with rectal bleeding; N39.0 Urinary tract infection, site not specified; K61.1 Rectal abscess; E87.0 Hyperosmolality and hypernatremia; N17.9 Acute kidney failure, unspecified; D62 Acute posthemorrhagic anemia; E87.1 Hypo-osmolality and hyponatremia; I48.92 Unspecified atrial flutter; K62.6 Ulcer of anus and rectum; G30.9 Alzheimer's disease, unspecified; E86.0 Dehydration; E11.9 Type 2 diabetes mellitus without complications; I10 Essential (primary) hypertension; Z85.038 Personal history of other malignant neoplasm of large intestine; Z93.1 Gastrostomy status; K56.41 Fecal impaction; E78.5 Hyperlipidemia, unspecified; R62.7 Adult failure to thrive; L98.429 Non-pressure chronic ulcer of back with unspecified severity; E87.8 Other disorders of electrolyte and fluid balance, not elsewhere classified; K63.5 Polyp of colon; F02.80 Dementia in other diseases classified elsewhere, unspecified severity, without behavioral disturbance, psychotic disturbance, mood disturbance, and anxiety; I48.0 Paroxysmal atrial fibrillation; D64.9 Anemia, unspecified; D75.839 Thrombocytosis, unspecified; Z66 Do not resuscitate; Z74.01 Bed confinement status
CPT/HCPCS: 36415; 51702; 71045; 71275; 74174; 80053; 80069; 81001; 82436; 82803; 83605; 83735; 83930; 83935; 84100; 84133; 84145; 84300; 84439; 84443; 84484; 85014; 85018; 85025; 85610; 85730; 86850; 86900; 86901; 86923; 87040; 87077; 87081; 87086; 87186; 87502; 87635; 93005; 94762; 96361; 96365; 96375; 99285; A4314; A4649; J0696; J2270; J2470; J2543; J3490; J7070; J7120; P9016; P9047; Q9967